=== PATIENT | male | born 1945 | race Caucasian/White ===

== ENCOUNTER → 2017-10-26 09:08 | Outpatient (CLI) | payer MEDICARE, OTHER, SELFPAY ==
[2017-10-26 09:55] LABS: BUN 24 mg/dL (7-18); Creatinine, Serum 0.99 mg/dL (0.70-1.30); Glucose 184 mg/dL (74-106)
[2017-10-26 09:56] LABS: Anion Gap 8 (5-15); BUN/Creat Ratio 24.2 RATIO (10-20); Calcium,Total 8.3 mg/dL (8.5-10.1); Chloride 106 mmol/L (98-107); EST Glomerular Filtration Rate 79 mL/min (>60); Est Glom Filt Rate - Afr Amer 95 mL/min (>60); Potassium 3.9 mmol/L (3.5-5.1); Sodium Level 141 mmol/L (136-145)
[2017-10-26 10:01] LABS: AST(SGOT) 13 U/L (15-37); Alanine Aminotransfer ALT/SGPT 19 U/L (16-61); Albumin, Serum 3.4 g/dL (3.2-5.0); Alkaline Phosphatase 52 U/L (45-117); Bilirubin, Direct 0.19 mg/dL (0.00-0.30); Cholesterol 113 mg/dL (200); Globulin 3.5 g/dL (2.2-4.2); High Density Lipoprotein 35 mg/dL; Protein, Total 6.9 g/dL (6.4-8.2); Triglycerides 120 mg/dL; Very Low Density Lipoprotein 24 mg/dL (5-40)
[2017-10-26 10:07] LABS: Hemoglobin A1c 7.4 % (4.2-6.3)
== END ==
PROVIDERS: Family Provider Family Medicine; PCP Family Medicine; Visit Provider Internal Medicine Cardiovascular Disease
DX: E78.5 Hyperlipidemia, unspecified (principal); Z79.899 Other long term (current) drug therapy; I10 Essential (primary) hypertension; E11.9 Type 2 diabetes mellitus without complications
CPT/HCPCS: 36415; 80048; 80061; 80076; 83036

== ENCOUNTER → 2018-03-14 10:00 | Outpatient (CLI) | payer MEDICARE, OTHER, SELFPAY ==
[2018-03-14 12:37] LABS: Hemoglobin A1c 6.8 % (4.2-6.3)
[2018-03-14 12:38] LABS: Anion Gap 9 (5-15); BUN 21 mg/dL (7-18); BUN/Creat Ratio 21.5 RATIO (10-20); Calcium,Total 8.9 mg/dL (8.5-10.1); Chloride 108 mmol/L (98-107); Creatinine, Serum 0.98 mg/dL (0.70-1.30); EST Glomerular Filtration Rate 80 mL/min (>60); Est Glom Filt Rate - Afr Amer 97 mL/min (>60); Glucose 186 mg/dL (74-106); Sodium Level 143 mmol/L (136-145)
== END ==
PROVIDERS: Family Provider Family Medicine; PCP Family Medicine; Visit Provider Family Medicine
DX: I10 Essential (primary) hypertension (principal); E11.9 Type 2 diabetes mellitus without complications
CPT/HCPCS: 36415; 80048; 83036

== ENCOUNTER → 2018-04-07 13:56 | Outpatient (CLI) | payer MEDICARE, OTHER, SELFPAY ==
--- NOTE | 2018-04-07 14:02 | CDU_ITS ---
Reason For Study: ALTERED MENTAL STATUS Rt. Velocities/BP Lt. Velocities/BP Prox CCA 95.0/19.9 cm/sec. Prox CCA 132.0/25.9 cm/sec. Mid CCA 88.5/15.2 cm/sec. Mid CCA 98.5/22.3 cm/sec. Dist CCA 78.0/20.5 cm/sec. Dist CCA 92.6/24.0 cm/sec. Prox ICA 72.1/23.5 cm/sec. Prox ICA 87.4/21.7 cm/sec. Mid ICA 81.5/24.6 cm/sec. Mid ICA 94.4/28.1 cm/sec. Dist ICA 103.0/31.1 cm/sec. Dist ICA 92.0/27.6 cm/sec. Rt. ICA/CCA = 103.0/88.5=1.2. Lt. ICA/CCA = 92.0/98.5=0.93. Prox ECA 101.0/17.0 cm/sec. Prox ECA 98.5/16.4 cm/sec. Rt. Vert. 55.4/15.3 cm/sec. Lt. Vert. 48.3/12.2 cm/sec. Right Extracranial There is no significant atherosclerotic plaque noted in the right common carotid artery. There is intimal thickening but no significant atherosclerotic plaque noted in the right internal carotid artery. There is no significant atherosclerotic plaque noted in the right external carotid artery. Antegrade flow is noted in the right vertebral artery. There is heterogeneous, irregular atherosclerotic plaque noted in the right bulb. Left Extracranial There is no significant atherosclerotic plaque noted in the left common carotid artery. There is no significant atherosclerotic plaque noted in the left internal carotid artery. There is no significant atherosclerotic plaque noted in the left external carotid artery. Antegrade flow is noted in the left vertebral artery. There is heterogeneous, irregular atherosclerotic plaque noted in the left bulb. Procedure Carotid Duplex 21298. The exam was diagnostic. Exam performed in department. Interpretation Summary No significant atherosclerotic plaque or stenosis noted in the internal carotid arteries bilaterally. Flow within the vertebral arteries is antegrade bilaterally. A small amount of heterogeneous, irregular, atherosclerotic plaque is noted in the carotid bulbs bilaterally, which is not hemodynamically significant. Ordering Physician: Guanakito Cedeno Referring Physician: Guanakito Cedeno Performed By: Aubrie Boyd, NEISHA, RVT
== END ==
PROVIDERS: Family Provider Family Medicine; PCP Family Medicine; Visit Provider Family Medicine
DX: R42 Dizziness and giddiness (principal); R41.82 Altered mental status, unspecified
CPT/HCPCS: 93880

== ENCOUNTER 2018-05-12 21:23 | Emergency (ER) | payer MEDICARE, OTHER, SELFPAY ==
[2018-05-12 21:24] VITALS: BP 149/72; PULSE 77; RESP 14; TEMP 39.1; O2SAT 94; BMI 28.7
--- NOTE | 2018-05-12 21:57 | RAD_ITS ---
STUDY: X-RAY CHEST REASON FOR EXAM: Male, 72 years old. Fever and illness. TECHNIQUE: PA and lateral views of the chest. # of Images: 2 COMPARISON: 09/16/2015. FINDINGS: There again is a calcified granuloma in the right lung apex. No focal infiltrate is seen. There is no demonstrated pleural abnormality. Normal size heart. Normal mediastinum and yanely. Normal visualized pulmonary arteries. There is atherosclerotic tortuosity of the aortic arch and descending thoracic aorta. There are diffuse degenerative changes of the visualized thoracic spine. Normal visualized ribs, clavicles, and shoulders. There is no demonstrated abnormality of the visualized soft tissue structures of the upper abdomen. RAD/Chest PA and Lateral IMPRESSION: No active pulmonary disease. Electronically Signed: James Gill MD at 22:37 EDT Tel , Service support ,
[2018-05-12] MEDS: 0.9% Normal Saline 1,000 ML 150 ML IV (22:22)
[2018-05-12 22:24] VITALS: PULSE 76; RESP 20; O2SAT 92
[2018-05-12 22:25] LABS: Color, Urine Yellow (Yellow); Glucose, Dipstick Normal (Normal); Ketone-Dipstick Negative (Negative); Leukocyte Esterase-Dipstick 500 /ul (Negative); Nitrite-Dipstick Positive (Negative); Occult Blood-Urine 25 /ul (Negative); Protein-Dipstick 30 mg/dl (Negative); Urine Bilirubin Dipstick Negative (Negative); Urine Clarity Cloudy (Clear); Urine Urobilinogen 1 mg/dl (Normal)
--- NOTE | 2018-05-12 22:25 | ED.RN ---
dr zamora aware pt took tylenol at home at 8pm,order to not give tylenol here.
[2018-05-12 22:44] LABS: Bacteria 2+ /hpf (None Seen); Mucous, Urine 1+ /hpf (<or=2+); Red Blood Cells-Urine 0-5 SEEN /hpf (0-5); Squamous Epithelial Cells - UA 0-5 SEEN /hpf (0-5); White Blood Cells 25-50 SEEN /hpf (0-5)
[2018-05-12 22:49] LABS: Absolute Lymphocyte Count 0.67 X10^3/ul (0.83-4.51); Absolute Neutrophil Count 10.4 X10^3/uL (2.0-7.7); Basophil# 0.04 X10^3/uL; Basophil% 0.3 % (0-1); Eosinophil# 0.09 X10^3/uL; Eosinophils% 0.7 % (0-5); Hematocrit 36.4 % (40-54); Hemoglobin 12.2 g/dl (13.0-16.5); Lymphocyte # 0.67 X10^3/ul (4.0); Lymphocyte % 5.5 % (19-41); Mean Corp Hgb Conc 33.5 g/gl (32-36); Mean Corpuscular Hgb 30.7 pg (27.0-32.0); Mean Corpuscular Volume 91.5 fL (80-94); Mean Platelet Vol. 11.4 fl (6.2-12.0); Monocyte# 0.97 X10^3/uL; Monocyte% 7.9 % (0-10); Neutrophil # 10.41 X10^3/uL (2.7-7.7); Neutrophil % 85.2 % (47-70); Platelet Count 132 K/mm3 (150-450); RBC Distribution Width CV 13.7 % (11.6-14.6); RBC Distribution Width SD 45.6 fl (35.1-43.9); Red Blood Count 3.98 M/mm3 (4.6-6.2); White Blood Count 12.2 K/mm3 (4.4-11.0)
[2018-05-12 22:51] LABS: POSITIVE COUNT NO; POSITIVE DIFFERENTIAL NO; POSITIVE MORPHOLOGY NO
[2018-05-12 22:54] VITALS: TEMP 37.6
[2018-05-12 22:55] LABS: International Normalized Ratio 2.3; Prothrombin Time (Protime)PT. 25.6 SECONDS (11.7-14.9)
[2018-05-12 22:56] LABS: Partial Thromboplast Time 41.5 Seconds (24.1-36.2)
[2018-05-12 23:09] LABS: Lactic Acid 1.8 mmol/L (0.4-2.0)
[2018-05-12 23:21] VITALS: PULSE 75; RESP 16; O2SAT 99
[2018-05-12 23:28] LABS: ALB/GLOB Ratio 0.9 RATIO (0.9-2.4); AST(SGOT) 8 U/L (15-37); Alanine Aminotransfer ALT/SGPT 16 U/L (16-61); Albumin, Serum 3.3 g/dL (3.2-5.0); Alkaline Phosphatase 63 U/L (45-117); Anion Gap 8 (5-15); BUN 14 mg/dL (7-18); BUN/Creat Ratio 12.8 RATIO (10-20); Calcium,Total 8.3 mg/dL (8.5-10.1); Chloride 105 mmol/L (98-107); Creatinine, Serum 1.09 mg/dL (0.70-1.30); EST Glomerular Filtration Rate 70 mL/min (>60); Est Glom Filt Rate - Afr Amer 85 mL/min (>60); Estimated Creatinine Clearance 62.32 ml/min; Globulin 3.7 g/dL (2.2-4.2); Glucose 161 mg/dL (74-106); Potassium 3.5 mmol/L (3.5-5.1); Sodium Level 137 mmol/L (136-145)
[2018-05-13 00:03] VITALS: PULSE 74; RESP 20; O2SAT 94
--- NOTE | 2018-05-13 00:08 | ED.DCSUM_ITS ---
- ER Visit Summary Date of Service: 05/13/18 Chief Complaint: Dysuria and fever History of Present Illness: The patient is a [address] Guanakito Maharaj. He reports he had dysuria for the past 2 days. States that he has a fever that began tonight. He has had chills. Complains of a chronic cough that is unchanged. He has a dull headache that is 2 out of 10 severity. He initially thought that this was because he got his shingles vaccine 2 days ago. Physical Examination: Vitals: 102.4, 149/72, 77, 14, 94% room air which is not hypoxic. General: Well-nourished and well-developed. Head: Normocephalic atraumatic. Neck: Supple, no lymphadenopathy. No JVD. Nontender. Cardiovascular: Regular rate and rhythm. No murmurs. Respiratory: No respiratory distress. Clear to auscultation bilaterally. Abdominal: Soft, nontender, nondistended, normal bowel sounds. No guarding, rebound, or peritoneal signs. Back: No CVA tenderness. Extremities: Nontender, trace pedal edema bilaterally. Skin: Normal color, no rash. Neurologic: Alert and oriented ?3. Cranial nerves II through XII are intact. Normal strength and sensation. Psych: Normal affect. Test Results: CBC is marked for a white count of 12.2 with 85 segmented neutrophils and 6 lymphocytes. H&H is 12.2 and 36.4. Platelets are 132. Chem- 7 is marked for the glucose of 161 calcium 8.3. Lactic acid is 1.8. UA shows leukocytes, nitrites, 25-50 white blood cells, 2+ bacteria. Emergency Department Course and Treatment: Patient was given a liter of normal saline. He is given a dose of Rocephin IV. He is resting comfortably and feels well. Treatment Plan: Patient would like to go home. He will be discharged on Cipro. Instructed to follow-up with Dr. Guanakito Cedeno or Dr. Maharaj in 2 days to get the results of his urine culture to make sure that it is sensitive to Cipro. Return to the emergency department for any worsening symptoms. Disposition: To home in improved and stable condition. Impression: 1. Pyelonephritis. This note was generated with [employer] software. It may contain incorrect words, spelling, and punctuation that were not noted in review of the chart prior to signing ED Disposition - Plan for ED Patient: Disposition: Home or Assisted Living Chief Complaint: General Illness Instructions: ED UTI Cystitis Male Prescriptions: Ciprofloxacin [Cipro] 500 mg PO BID #14 tablet Referrals: Guanakito Cedeno MD [Primary Care Provider] - 2 Days
[2018-05-13 00:21] VITALS: BP 119/48; PULSE 73; RESP 18; O2SAT 94
== END 2018-05-13 00:21 | disposition home or self-care (01) ==
LOC: ED 21:47
PROVIDERS: Emergency Provider Emergency Medicine; Family Provider Family Medicine; PCP Family Medicine
DX: N12 Tubulo-interstitial nephritis, not specified as acute or chronic (principal); R05 Cough; R51 Headache; R60.0 Localized edema; E11.9 Type 2 diabetes mellitus without complications; I10 Essential (primary) hypertension; Z90.49 Acquired absence of other specified parts of digestive tract; Z79.84 Long term (current) use of oral hypoglycemic drugs; Z79.01 Long term (current) use of anticoagulants; Z79.899 Other long term (current) drug therapy
CPT/HCPCS: 71046; 80053; 81001; 83605; 85025; 85610; 85730; 87040; 87086; 87088; 87186; 96361; 96365; 99285; J7030; J7050; A4216; J0696

== ENCOUNTER → 2018-05-20 08:54 | Outpatient (CLI) | payer MEDICARE, OTHER, SELFPAY ==
[2018-05-20 10:07] LABS: AST(SGOT) 11 U/L (15-37); Alanine Aminotransfer ALT/SGPT 20 U/L (16-61); Albumin, Serum 3.1 g/dL (3.2-5.0); Alkaline Phosphatase 61 U/L (45-117); Bilirubin, Direct 0.08 mg/dL (0.00-0.30); Cholesterol 86 mg/dL (200); Globulin 3.9 g/dL (2.2-4.2); High Density Lipoprotein 28 mg/dL; Triglycerides 125 mg/dL; Very Low Density Lipoprotein 25 mg/dL (5-40)
== END ==
PROVIDERS: Family Provider Family Medicine; PCP Family Medicine; Referring Provider Nurse Practitioner Family; Visit Provider Nurse Practitioner Family
DX: E78.5 Hyperlipidemia, unspecified (principal); Z79.899 Other long term (current) drug therapy
CPT/HCPCS: 36415; 80061; 80076

== ENCOUNTER → 2018-10-12 08:51 | Outpatient (CLI) | payer MEDICARE, OTHER, SELFPAY ==
[2018-10-12 10:04] LABS: Cholesterol 94 mg/dL (200); High Density Lipoprotein 30 mg/dL; Triglycerides 137 mg/dL; Very Low Density Lipoprotein 27 mg/dL (5-40)
[2018-10-12 10:12] LABS: AST(SGOT) 13 U/L (15-37); Alanine Aminotransfer ALT/SGPT 20 U/L (16-61); Albumin, Serum 3.6 g/dL (3.2-5.0); Alkaline Phosphatase 62 U/L (45-117); Bilirubin, Direct 0.14 mg/dL (0.00-0.30); Globulin 3.5 g/dL (2.2-4.2); Protein, Total 7.1 g/dL (6.4-8.2)
[2018-10-12 11:30] LABS: Hemoglobin A1c 8.7 % (4.2-6.3)
== END ==
PROVIDERS: Family Provider Family Medicine; PCP Family Medicine; Referring Provider Nurse Practitioner Family; Visit Provider Nurse Practitioner Family
DX: I10 Essential (primary) hypertension (principal); E11.9 Type 2 diabetes mellitus without complications; E78.5 Hyperlipidemia, unspecified; Z12.5 Encounter for screening for malignant neoplasm of prostate
CPT/HCPCS: 36415; 80061; 80076; 83036; 84153; G0103

== ENCOUNTER 2019-03-12 00:10 | Emergency (ER) | payer MEDICARE, OTHER, SELFPAY ==
[2018-10-17 15:56] VITALS: BMI 28.2
[2019-03-12 00:11] VITALS: BP 153/88; PULSE 86; RESP 17; TEMP 36.6; O2SAT 99; BMI 26.7
--- NOTE | 2019-03-12 01:08 | CT_ITS ---
STUDY: CT ABDOMEN AND PELVIS WITHOUT CONTRAST REASON FOR EXAM: Male, 73 years old. Epigastric abdominal pain RADIATION DOSAGE (If Supplied By Facility): CTDIvol = ( 9.99 ) mGy, DLP = ( 536.38 ) mGycm TECHNIQUE: Transaxial images were obtained from the dome of the diaphragm to the symphysis pubis without oral contrast, and without intravenous contrast. Sagittal and coronal images were reconstructed. Individualized dose optimization techniques were used for this CT. COMPARISON: CT abdomen and pelvis from 01/21/2016 FINDINGS: The visualized lung bases are unremarkable. There is scattered right lung base calcified granulomas. The visualized portions of the heart are within normal limits. Normal liver. Interval resolution of fluid collection within the liver. The patient is status post cholecystectomy. Normal spleen. Normal pancreas. Normal bilateral adrenal glands. Normal right kidney. This is a stable left renal inferior pole cyst measuring 1.1 cm in diameter. Normal visualized stomach. Normal small intestine. There is scattered colonic diverticulosis without evidence for diverticulitis. The appendix is visualized and appears normal. Normal abdominal aorta. Normal inferior vena cava. Normal retroperitoneum. Normal urinary bladder. Normal abdominal wall. There are diffuse degenerative changes of the visualized lumbar spine. CT/Abdomen/Pelvis without Cont IMPRESSION: Negative unenhanced CT of the abdomen and pelvis for acute intra-abdominal abnormality. Status post cholecystectomy with interval resolution of intrahepatic fluid collection. Electronically Signed: David Rosa, at 1:55 EDT Tel , Service support ,
--- NOTE | 2019-03-12 01:08 | EKG12_ITS ---
Test Reason : CHEST BURNING Blood Pressure : / mmHG Vent. Rate : 084 BPM Atrial Rate : 084 BPM P-R Int : 194 ms QRS Dur : 098 ms QT Int : 420 ms P-R-T Axes : 056 027 060 degrees QTc Int : 496 ms Normal sinus rhythm Abnormal ECG Confirmed by ANTON EATON, RUBEN ([id number]), editorial clerk LO ARRINGTON ([id number]) on 03/14/2019 1:24:14 PM Referred By: DEANDRE Confirmed By:RUBEN WALTON MD
--- NOTE | 2019-03-12 01:13 | ED.VIS.GI ---
History of Present Illness Chief Complaint: General Illness - Abdominal Pain/Flank Pain Onset: Hours - 6.5-7 Context: Gradual Onset Timing: Continuous Quality: Burning Location: Epigastric Current Severity: Gone Maximum Severity: Severe Worsened by: Nothing - Despite exertion, taking Gaviscon, Tums Relieved by: Antacids - partially, but pain would return/worsen quickly - Nausea/Vomiting/Emesis GI Symptom: Negative for: Nausea, Vomiting - Diarrhea/Melena/Hematochezia GI Symptom: Negative for: Diarrhea, Melena, Hematochezia Associated Symptoms: - - Sweats. Negative for: Dysuria, Hematuria Narrative: Patient states he has had this not infrequently since he had his gallbladder taken out, which was complicated by needing 3 different ERCP procedures. He states usually taking Gaviscon takes care of this discomfort and it is no longer an issue but tonight that did not help. He proceeded to take Tums and other medications none of which helped. The pain got worse, so he presents to the ER but now states the pain is gone. He states he felt a little straight through into his back. Denies any nausea or throwing up. I did make him sweat because it hurt really bad. Denies any discomfort up into his chest or trouble breathing. No nausea or vomiting, he states he did feel an irregular heartbeat like he went into A. fib, and states that is not unusual for him and he usually feels it. No recent hospitalization. States he had a heart catheter on 10 years ago that showed some very mild coronary disease but never needed a stent and has never failed a stress test. The last one was multiple years ago. - Past Medical History (1) Atherosclerotic heart disease of [place] coronary artery without angina pectoris Status: Chronic Comment: [facility] 08/14/08: CX 20-30% prox-mid stenosis, LAD 20-30% and 10-20% anterior trunk stenosis, OM1 20-30% tapering ostial stenosis, RCA 20% prox stenosis (2) Diabetes mellitus, type II Status: Chronic (3) Essential hypertension Status: Chronic (4) Gastroesophageal reflux disease Status: Chronic (5) Paroxysmal atrial fibrillation Status: Chronic (6) Pure hypercholesterolemia Status: Chronic Past Medical History - Allergies and Home Meds Allergies/Adverse Reactions: Allergies scopolamine Adverse Reaction (Verified 03/12/19 00:15) Other HALLUCINATIONS SOME TYPE OF IV DYE FOR ULTRA BRYCE Adverse Reaction (Uncoded 03/12/19 00:15) Other Primary Care Physician: Guanakito Cedeno MD [Primary Care Provider] - 3-5 Days Surgical History: cholecystectomy Smoking Status: Never smoker Drugs: None - Family History Maternal Family History: Family History (Last Reviewed 10/17/18 @ 16:00 by Brittani Peoples) Father CAD (coronary artery disease) Mother Alzheimers disease Sister Breast cancer Family History: Reports: No pertinent history Paternal Family History: Family History (Last Reviewed 10/17/18 @ 16:00 by Brittani Peoples) Father CAD (coronary artery disease) Mother Alzheimers disease Sister Breast cancer Family History: Reports: Cancer - colon cancer, Heart Disease Review of Systems General: Reports: Sweats. Denies: Chills, Fever Eyes: Denies: Visual changes - bilaterally, Diplopia ENT: Denies: Rhinorrhea, Sore throat Cardiovascular: Denies: Chest pain, Palpitations Respiratory: Denies: Dyspnea, Cough, Dyspnea on exertion Gastrointestinal: Reports: Abdominal pain. Denies: Nausea, Vomiting, Diarrhea, Melena, Hematochezia Genitourinary: Denies: Dysuria, Hematuria, Frequency Musculoskeletal: Reports: Back pain. Denies: Extremity Pain Skin: Denies: Rash, Wounds Neurological: Denies: Headache, Weakness, Numbness Physical Exam Vital Signs/Narrative: Vital Signs Temp Pulse Resp BP Pulse Ox 03/12/19 00:11 98 F 86 17 153/88 H 99 Inital Vital Signs reviewed: Yes General: Well nourished, Well developed, No Acute Distress Head: Normocephalic, Atraumatic Eyes: Perrl, EOMI ENT: Moist mucous membranes, No rhinorrhea Neck: Supple, Nontender Cardiovascular: Regular rate, Regular rhythm, No murmurs Respiratory: No distress, CTA bilaterally, Chest nontender Abdomen: Soft, Nondistended, Normal bowel sounds, Tender - Epigastrium only. Negative for: Guarding, Rebound tenderness, Pulsatile mass Back: Nontender, Normal Inspection. Negative for: CVA tenderness Extremities: Nontender, No edema. Negative for: Calf Tenderness Skin: Normal color, No rash, No Trauma Neurological: Alert, Oriented x3, Cranial nerves II-XII grossly intact, Normal Strength, Normal Sensation Psychological: Normal affect, Normal Mood Diagnostic/Tx/Re-eval Impressions Abdomen/Pelvis CT 03/12/19 01:08 IMPRESSION: Negative unenhanced CT of the abdomen and pelvis for acute intra-abdominal abnormality. Status post cholecystectomy with interval resolution of intrahepatic fluid collection. Electronically Signed: David Rosa, at 1:55 EDT Tel , Service support , 03/12/19 01:08 CT Abd [Abdomen/Pelvis without Cont] [CT] Stat Laboratory Results 03/12/19 03/12/19 01:17 01:17 WBC 7.0 RBC 3.94 L Hgb 12.6 L Hct 37.8 L MCV 95.9 H MCH 32.0 MCHC 33.3 RDW Std Deviation 47.9 H RDW Coeff of Dano 13.5 Plt Count 163 MPV 11.0 Immature Gran % (Auto) 0.700 Neut % (Auto) 71.3 H Lymph % (Auto) 15.8 L Lee % (Auto) 10.5 H Eos % (Auto) 1.0 Baso % (Auto) 0.7 Absolute Neuts (auto) 5.0 Absolute Lymphs (auto) 1.11 Nucleated RBC % 0 Sodium 145 Potassium 4.0 Chloride 111 H Carbon Dioxide 27.0 Anion Gap 7 BUN 26 H Creatinine 1.17 Estim Creat Clear Calc 59.00 Est GFR (MDRD) Af Amer 78 Est GFR (MDRD) Non-Af 65 BUN/Creatinine Ratio 22.2 H Glucose 126 H Calcium 8.9 Total Bilirubin 0.50 AST 62 H ALT 45 Alkaline Phosphatase 59 Troponin I < 0.015 Total Protein 7.1 Albumin 3.5 Globulin 3.6 Albumin/Globulin Ratio 1.0 Lipase 303 - Rhythm Strip Rhythm Strip: Sinus Rhythm Rate: 85 Ectopy: PVC(s) - EKG Initial EKG Interpretation: Sinus Rhythm, No Acute Injury Pattern, - - Prolonged QTC. Normal axis. No ectopy on EKG. Prior: Unchanged Follow-up EKG Interpretation: Sinus Rhythm, No Acute Injury Pattern Prior: Unchanged - Medical Decision Making Patient started having symptoms return, somewhat colicky in nature. He was given a nitroglycerin but it did not help. I repeated his EKG was unchanged. His work-up is unremarkable, no sign of aortic aneurysm, pancreatitis, acute coronary syndrome, perforated peptic ulcer, or basilar pneumonia. I gave him a GI cocktail, it gradually seemed to help. He is amenable to close outpatient follow-up and trying Carafate in the meantime. He is already on a PPI. He is a patient of Dr. Terrazas's, so I think it might be reasonable to follow up with him for evaluation for EGD. ED Disposition - Plan for ED Patient: Disposition: Home or Assisted Living Diagnosis: Epigastric pain Instructions: EPIGASTRIC PAIN (Uncertain cause) Prescriptions: Sucralfate [Carafate] 1 gm PO 4X/DAY #28 tab Prescription Printed Referrals: Guanakito Cedeno MD [Primary Care Provider] - 3-5 Days Keo Terrazas MD [NON-STAFF] - 1 Week if not improving
[2019-03-12 01:25] LABS: Absolute Lymphocyte Count 1.11 X10^3/uL (0.83-4.51); Basophil# 0.05 X10^3/uL; Basophil% 0.7 % (0-1); Eosinophil# 0.07 X10^3/uL; Hematocrit 37.8 % (40-54); Hemoglobin 12.6 g/dL (13.0-16.5); Lymphocyte # 1.11 X10^3/ul (4.0); Lymphocyte % 15.8 % (19-41); Mean Corp Hgb Conc 33.3 g/dL (32-36); Mean Corpuscular Volume 95.9 fL (80-94); Monocyte# 0.74 X10^3/uL; Monocyte% 10.5 % (0-10); NRBC Flagged by Analyzer 0 % (0-5); Neutrophil # 5.02 X10^3/uL (2.7-7.7); Neutrophil % 71.3 % (47-70); Platelet Count 163 K/mm3 (150-450); RBC Distribution Width CV 13.5 % (11.6-14.6); RBC Distribution Width SD 47.9 fl (35.1-43.9); Red Blood Count 3.94 M/mm3 (4.6-6.2)
[2019-03-12 01:43] LABS: AST(SGOT) 62 U/L (15-37); Alanine Aminotransfer ALT/SGPT 45 U/L (16-61); Albumin, Serum 3.5 g/dL (3.2-5.0); Alkaline Phosphatase 59 U/L (45-117); Anion Gap 7 (5-15); BUN 26 mg/dL (7-18); BUN/Creat Ratio 22.2 RATIO (10-20); Calcium,Total 8.9 mg/dL (8.5-10.1); Chloride 111 mmol/L (98-107); Creatinine, Serum 1.17 mg/dL (0.70-1.30); EST Glomerular Filtration Rate 65 mL/min (>60); Est Glom Filt Rate - Afr Amer 78 mL/min (>60); Globulin 3.6 g/dL (2.2-4.2); Glucose 126 mg/dL (74-106); Lipase 303 U/L (73-393); Protein, Total 7.1 g/dL (6.4-8.2); Sodium Level 145 mmol/L (136-145)
--- NOTE | 2019-03-12 02:40 | EKG12_ITS ---
Test Reason : CP Blood Pressure : / mmHG Vent. Rate : 084 BPM Atrial Rate : 084 BPM P-R Int : 194 ms QRS Dur : 098 ms QT Int : 410 ms P-R-T Axes : 055 029 062 degrees QTc Int : 484 ms Normal sinus rhythm Prolonged QT Abnormal ECG Confirmed by ANTON EATON, RUBEN ([id number]), senior editor LO ARRINGTON ([id number]) on 03/14/2019 1:25:14 PM Referred By: DEANDRE Confirmed By:RUBEN WALTON MD
[2019-03-12 02:42] VITALS: BP 173/84; PULSE 87; RESP 18; O2SAT 98
[2019-03-12] MEDS: Nitroglycerin SL (ED/IMG/CATH) 0.4 MG TABLET SUBLINGUAL (02:43)
[2019-03-12] MEDS: Mag Hydrox/Al Hydrox/Simeth 30 ML UDC PO (03:20)
[2019-03-12 04:22] VITALS: BP 151/70; PULSE 85; RESP 20; O2SAT 97
[2019-03-12] MEDS: Sucralfate 1 GM Tablet PO (04:35)
== END 2019-03-12 04:38 | disposition home or self-care (01) ==
PROVIDERS: Emergency Provider Emergency Medicine; Family Provider Family Medicine; PCP Family Medicine
DX: R10.13 Epigastric pain (principal); I49.3 Ventricular premature depolarization; I25.10 Atherosclerotic heart disease of native coronary artery without angina pectoris; E11.9 Type 2 diabetes mellitus without complications; I10 Essential (primary) hypertension; K21.9 Gastro-esophageal reflux disease without esophagitis; I48.0 Paroxysmal atrial fibrillation; E78.00 Pure hypercholesterolemia, unspecified; Z90.49 Acquired absence of other specified parts of digestive tract; Z79.84 Long term (current) use of oral hypoglycemic drugs; Z79.899 Other long term (current) drug therapy
CPT/HCPCS: 74176; 80053; 83690; 84484; 85025; 93005; 99285; A4216

== ENCOUNTER → 2019-04-17 08:54 | Outpatient (CLI) | payer MEDICARE, OTHER, SELFPAY ==
[2019-04-17 10:11] LABS: Anion Gap 4 (5-15); BUN 21 mg/dL (7-18); BUN/Creat Ratio 20.2 RATIO (10-20); Calcium,Total 8.6 mg/dL (8.5-10.1); Chloride 109 mmol/L (98-107); Creatinine, Serum 1.04 mg/dL (0.70-1.30); EST Glomerular Filtration Rate 74 mL/min (>60); Est Glom Filt Rate - Afr Amer 90 mL/min (>60); Glucose 157 mg/dL (74-106); Sodium Level 142 mmol/L (136-145)
[2019-04-17 10:17] LABS: Cholesterol 84 mg/dL (200); High Density Lipoprotein 36 mg/dL; Triglycerides 68 mg/dL; Very Low Density Lipoprotein 14 mg/dL (5-40)
[2019-04-17 10:20] LABS: Hemoglobin A1c 7.1 % (4.2-6.3)
[2019-04-17 11:59] LABS: AST(SGOT) 8 U/L (15-37); Alanine Aminotransfer ALT/SGPT 16 U/L (16-61); Albumin, Serum 3.4 g/dL (3.2-5.0); Alkaline Phosphatase 50 U/L (45-117); Bilirubin, Direct 0.14 mg/dL (0.00-0.30); Globulin 3.3 g/dL (2.2-4.2); Protein, Total 6.7 g/dL (6.4-8.2)
== END ==
PROVIDERS: Family Provider Family Medicine; PCP Family Medicine; Referring Provider Nurse Practitioner Family; Visit Provider Nurse Practitioner Family
DX: I10 Essential (primary) hypertension (principal); E11.9 Type 2 diabetes mellitus without complications; E78.00 Pure hypercholesterolemia, unspecified; I25.10 Atherosclerotic heart disease of native coronary artery without angina pectoris
CPT/HCPCS: 36415; 80048; 80061; 80076; 83036

== ENCOUNTER → 2019-04-25 06:25 | Outpatient (CLI) | payer MEDICARE, OTHER, SELFPAY ==
[2019-04-20 10:23] VITALS: BMI 26.1
--- NOTE | 2019-04-25 11:43 | STRESSREP_ITS ---
Stress Test Report Date: 04-25-19 Procedure: Pharmacologic stress nuclear imaging study Indications: Palpitations; atrial fibrillation Consent: Per the patient Procedure: The patient underwent pharmacologic (Regadenoson) evaluation with a peak heart rate of 129 beats per minute (88 %predicted maximal heart rate) and a peak blood pressure of 130/72 mmHg. The baseline ECG demonstrated atrial fibrillation; nonspecific T wave abnormality. The peak pharmacologic ECG demonstrated no obvious ECG changes. There was an isolated PVC during infusion and a rare PVC during recovery. There was no complaint of chest discomfort during pharmacologic infusion or recovery. The examination was discontinued secondary to completion of protocol. Impression: 1. Pharmacologic (Regadenoson) evaluation 2. Peak pharmacologic ECG with no obvious ECG changes. 3. There was an isolated PVC during infusion and a rare PVC during recovery. 4. Nuclear images pending Myocardial perfusion imaging study: Technique: The patient was injected with 11.0 millicuries of technetium 99m Cardiolite and subsequently rest SPECT Cardiolite nuclear imaging was obtained in the horizontal long, vertical long, and short axis views. The patient underwent pharmacologic (Regadenoson) evaluation with a peak heart rate of 129 beats per minute (88 % percent predicted maximal heart rate) and a peak blood pressure of 130/72 mmHg. The patient was injected with 34 millicuries of technetium 99m Cardiolite and subsequently stress SPECT Cardiolite nuclear imaging was obtained in the horizontal long, vertical long, and short axis views. A gated Cardiolite study at peak stress was obtained. Interpretation: Rest and stress SPECT Cardiolite nuclear imaging status post realignment, normalization, and attenuation correction demonstrate the appearance of extracardiac/gastrointestinal tracer uptake near the inferior segments as well as a small area diminished tracer uptake near the apical segments without significant change between rest and stress. There is end systolic thickening and brightening. The gated Cardiolite study demonstrates myocardial thickening and inward wall motion. The reported LVEF is 55 %. Impression: 1. Rest and stress SPECT current nuclear imaging demonstrate myocardial perfusion changes compatible defects a gastrointestinal tracer uptake as well as physiologic apical thinning with no myocardial perfusion changes considered diagnostic for associated stress-induced myocardial ischemia. 2. The gated Cardiolite study reports an LVEF of 55 %. This note was generated with [employer] software. It may contain incorrect words, spelling, and punctuation that were not noted in checking the note before signing.
== END ==
PROVIDERS: Family Provider Family Medicine; PCP Family Medicine; Referring Provider Physician Assistant Medical; Visit Provider Physician Assistant Medical
DX: I48.0 Paroxysmal atrial fibrillation (principal); E78.00 Pure hypercholesterolemia, unspecified; I10 Essential (primary) hypertension; I25.10 Atherosclerotic heart disease of native coronary artery without angina pectoris
CPT/HCPCS: 78452; 93017; 93225; 93226; A9500; A4216; J2785

== ENCOUNTER 2019-05-16 07:53 | Day surgery (SDC) | payer MEDICARE, OTHER, SELFPAY ==
[2019-04-20 10:23] VITALS: BMI 26.1
[2019-05-10 09:43] VITALS: BMI 26.1
--- NOTE | 2019-05-10 09:55 | RAD_ITS ---
STUDY: X-RAY CHEST REASON FOR EXAM: Male, 73 years old. Shortness of breath and cough TECHNIQUE: PA and lateral views of the chest. COMPARISON: 05/12/2018 FINDINGS: The lungs are clear and expanded. There is no demonstrated pleural abnormality. Normal size heart. Normal mediastinum and yanely. Normal visualized pulmonary arteries. Normal visualized aortic arch and descending thoracic aorta. Normal visualized thoracic spine. Normal visualized ribs, clavicles, and shoulders. There is no demonstrated abnormality of the visualized soft tissue structures of the upper abdomen. RAD/Chest PA and Lateral IMPRESSION: Normal x-ray examination of the chest. Electronically Signed: Garrett Eldridge MD at 10:29 EDT , Service support ,
[2019-05-10 10:38] LABS: Hematocrit 40.5 % (40-54); Mean Corp Hgb Conc 32.1 g/dL (32-36); Mean Corpuscular Hgb 30.3 pg (27.0-32.0); Mean Corpuscular Volume 94.4 fL (80-94); Mean Platelet Vol. 11.3 fl (6.2-12.0); Platelet Count 162 K/mm3 (150-450); RBC Distribution Width CV 13.4 % (11.6-14.6); RBC Distribution Width SD 45.9 fl (35.1-43.9); Red Blood Count 4.29 M/mm3 (4.6-6.2); White Blood Count 7.5 K/mm3 (4.4-11.0)
[2019-05-10 10:45] LABS: International Normalized Ratio 1.3; Partial Thromboplast Time 35.4 Seconds (24.1-36.2); Prothrombin Time (Protime)PT. 15.6 SECONDS (11.7-14.9)
[2019-05-10 11:12] LABS: Anion Gap 5 (5-15); BUN 14 mg/dL (7-18); BUN/Creat Ratio 14.1 RATIO (10-20); Calcium,Total 8.8 mg/dL (8.5-10.1); Chloride 108 mmol/L (98-107); EST Glomerular Filtration Rate 78 mL/min (>60); Est Glom Filt Rate - Afr Amer 94 mL/min (>60); Glucose 197 mg/dL (74-106); Potassium 4.2 mmol/L (3.5-5.1); Sodium Level 141 mmol/L (136-145)
[2019-05-16 08:15] VITALS: BMI 25.1
--- NOTE | 2019-05-16 09:07 | HP.PCM_ITS ---
Problem List (1) Wide-complex tachycardia Status: Acute (2) Paroxysmal atrial fibrillation Status: Chronic (3) CAD in [place] artery Status: Acute (4) Pure hypercholesterolemia Status: Chronic (5) Essential hypertension Status: Chronic History and Physical Date of Admission: 05/16/19 [facility] [address] [place] [address] OFFICE VISIT Date of Service: 04/20/19 MR#: [id number] Acct: [id number] Name: MALI MARTIN Rep #: [id number] : [id number] Provider: Brittani Keenan Age/Sex: 73/M Location: [facility] Status: Signed HPI HPI History of Present Illness Details: MALI MARTIN, is a 73 M who presents to the office today for a cardiovascular outpatient follow-up. He has a history of paroxysmal atrial fibrillation, coronary artery disease, hypertension, and hyperlipidemia. Pt sts that he started to notice an increase in palpitations over the last 3-6 months. He notes that this occur daily but not all day. He notes that he his HR ranges from 60-80 in short periods of time. He feels that these occur more at rest than with activity. He does not have any chest pain. He does not have any worsening SOB. He does not have any near syncope/syncope. He does occasionally have LLE. He does not think his metoprolol is working. Intake Vital Signs 04/20/19 Height 5 ft 11 in 04/20/19 Weight: 187 lb 8 oz 04/20/19 Body Mass Index (BMI) 26.1 04/20/19 Blood Pressure 130/64 H 04/20/19 Blood Pressure Location Rt brachial 04/20/19 Respiratory Rate 16 04/20/19 Pulse Rate 72 04/20/19 Pulse Source Palpation 04/20/19 Body Mass Index (BMI) 26.7 Intake Visit Reasons: 6 m fu Is patient in pain?: No Allergies scopolamine Adverse Reaction (Verified 04/20/19 10:27) Other SOME TYPE OF IV DYE FOR ULTRA BRYCE Adverse Reaction (Uncoded 04/20/19 10:27) Other Medications Glimepiride [Amaryl] 4 mg PO DAILY 01/21/16 [History Confirmed 04/20/19] Omeprazole [Prilosec] 20 mg PO BID 01/21/16 [History Confirmed 04/20/19] Tamsulosin HCl [Flomax] 0.4 mg PO DAILY 01/21/16 [History Confirmed 04/20/19] sitagliptin 100 mg tablet 100 mg PO QDAY 10/26/17 [History Confirmed 04/20/19] flecainide 150 mg tablet 150 mg PO BID #180 tab 07/27/18 [Rx Confirmed 04/20/19] pravastatin 20 mg tablet 20 mg PO DAILY #90 tab 07/27/18 [Rx Confirmed 04/20/19] rivaroxaban 20 mg tablet 20 mg PO DAILY #90 tab 08/02/18 [Rx Confirmed 04/20/19] metformin 500 mg tablet 500 mg PO TID tab 10/17/18 [History Confirmed 04/20/19] omega-3 fatty acids 1,000 mg capsule 1,000 mg PO DAILY 10/17/18 [History Confirmed 04/20/19] metoprolol tartrate 50 mg tablet 50 mg PO BID 10/18/18 [History Confirmed 04/20/19] Sucralfate [Carafate] 1 gm PO 4X/DAY #28 tab 03/12/19 [Rx Confirmed 04/20/19] amlodipine 10 mg tablet 5 mg PO QDAY tab 04/20/19 [History] losartan 100 mg tablet 50 mg PO BID tab 04/20/19 [History] Nurse's Note: Voices metoprolol is not working as well as the nadolol, but insurance won't cover nadolol anymore. [facility] Medical History Pure hypercholesterolemia (Chronic) Essential hypertension (Chronic) Atherosclerotic heart disease of [place] coronary artery without angina pectoris (Chronic) Paroxysmal atrial fibrillation (Chronic) Diabetes mellitus, type II (Chronic) Body mass index (bmi) 29.0-29.9, adult (Acute) Chest pain (Acute) CAD (coronary artery disease) (Inactive) Hyperlipidemia (Inactive) Hypertension (Inactive) Surgical History History of ERCP (Resolved) Hx laparoscopic cholecystectomy (Resolved) Family History Father CAD (coronary artery disease) Mother Alzheimers disease Sister Breast cancer Social History (Updated 04/20/19 @ 11:10 by HAN Bean) Smoking Status: Never smoker alcohol intake: never substance use type: does not use diet: diabetic caffeine: No what type of physical activity do you participate in: none seatbelt use: always do you feel safe at home: Yes ROS Const Const: Negative for fatigue, weakness, fever(s) or headache(s) Eyes Eyes: Negative for blind spots, loss of peripheral vision or transient loss of vision ENT ENT: Negative for headache(s), dizziness, tinnitus or Nosebleed/epistaxis Cardio Chest Pain: No Palpitations: Yes Edema: None Muscle aches with walking: None Resp Respiratory: Negative for SOB with activity, SOB at rest, SOB orthopnea\SOB lying down or Cough GI GI: Negative nausea, vomiting, heartburn or vomiting blood/hematemesis : Negative for hematuria Musc Musc: Negative for muscle aches/ myalgia Neuro Neuro: Negative for dizziness, lightheadedness, near syncope, syncope, orthostatic symptoms, headache(s) or weakness Kwaku Hematologic/Lymphatic: Negative for easy bleeding Endo Endo: Negative for fatigue Cardiology Exam Const Appearance: cooperative, no acute distress and well developed Orientation: alert, awake and oriented x3 Head Head: normocephalic and atraumatic Mouth: moist mucous membranes Eyes General: appearance normal, both eyes and all related structures Conjunctivae: conjunctivae normal Pupils: PERRL EOM: EOM intact bilaterally Neck Neck: normal visual inspection, no lymphadenopathy and no JVD Carotids: Negative bruit Neck Mass: Negative Neck mass Chest Chest inspection: normal inspection of the chest and symmetric chest movement Auscultation: Bilateral: Clear to Auscultation Cardio Palpation: normal PMI Rate: regular rate Rhythm: regular rhythm and ectopic beats Heart sounds: S1 normal and S2 normal; negative rub, gallop or murmur GI GI: normal to inspection, soft, no hepatosplenomegaly and bowel sounds present; negative tender Neuro General: alert, awake, oriented x3, CN's II-XI intact bilaterally and moves all extremities Extremities Pulses: Normal: Right Posterior Tibial Pulse, Left Posterior Tibial Pulse, Right Radial Pulse, Left Radial Pulse Lower Extremity Edema: None: Bilateral Psych Psychological: normal affect Assessment & Plan 1. Atherosclerosis of [place] coronary artery of [place] heart without angina pectoris I25.10 [facility] 08/14/08: CX 20-30% prox-mid stenosis, LAD 20-30% and 10-20% anterior trunk stenosis, OM1 20-30% tapering ostial stenosis, RCA 20% prox stenosis Plan Patient does not have any symptoms of angina but with his worsening palpitations would like to obtain a stress test to make sure that he does not have any underlying ischemia as he is on flecainide for his atrial fibrillation. Orders Orders: Cardiac Holter Monitor, Set-Up Today Cardiac Holter Monitor/Day Today Nuclear Stress Test - Treadmil Today 2. Essential hypertension I10 Plan Blood pressure is well controlled on current medications, we do not recommend any changes at this time. Orders Orders: Cardiac Holter Monitor, Set-Up Today Cardiac Holter Monitor/Day Today Nuclear Stress Test - Treadmil Today 3. Paroxysmal atrial fibrillation I48.0 Plan Patient is concerned about increase in palpitations. He does have underlying atrial fibrillation. He questions if his medication is working. He is currently on metoprolol and flecainide. He is also on a factor X a inhibitor. Would like to obtain a 24-hour Holter monitor to further assess his arrhythmias. Recent labs were obtained. Orders Orders: Cardiac Holter Monitor, Set-Up Today Cardiac Holter Monitor/Day Today Nuclear Stress Test - Treadmil Today 4. Pure hypercholesterolemia E78.00 Plan Adequately controlled on low intensity statin. Will not make any adjustments per Orders Orders: Cardiac Holter Monitor, Set-Up Today Cardiac Holter Monitor/Day Today Nuclear Stress Test - Treadmil Today Plan Detail Additional Comments Thank you for allowing us to participate in patient's plan of care, if you have any questions please do not hesitate to call. This note was generated using a voice recognition system and there may be incorrect words, spelling or punctuation errors that were not noted when reviewing the office note prior to saving. Follow Up 6 Weeks (MMM) Coding Level of Care Code Off vis,est,level 4 Diagnoses Atherosclerosis of [place] coronary artery of [place] heart without angina pectoris I25.10 ??[place] vs. transplanted heart: [place] heart Essential hypertension I10 Paroxysmal atrial fibrillation I48.0 Pure hypercholesterolemia E78.00 Coding Level of Care Code Off vis,est,level 4 Diagnoses Atherosclerosis of [place] coronary artery of [place] heart without angina pectoris I25.10 ??[place] vs. transplanted heart: [place] heart Essential hypertension I10 Paroxysmal atrial fibrillation I48.0 Pure hypercholesterolemia E78.00 Supplemental Info Supplemental Information Transthoracic echocardiogram: 12/17/2014 Interpretation Summary Left ventricular systolic function is normal. The estimated ejection fraction is 60 %. Mild (1+) mitral valve insufficiency. Trivial tricuspid valve insufficiency. Trivial aortic valve insufficiency. Trivial pulmonic valve insufficiency. DATE OF SERVICE: 01/15/2015 EXERCISE TOLERANCE TEST: The patient exercised according to a regular Manpreet protocol for 9 minutes 45 seconds completing stage 3 and 45 seconds of stage 4 achieving a peak heart rate of 117 beats per minute (78% predicted maximum heart rate) and a peak blood pressure of 168/80 mmHg and a peak MET capacity of approximately 11 METS. The baseline ECG demonstrated sinus bradycardia. The peak exercise ECG demonstrated somatic/motion artifact with no obvious ECG changes. There were no cardiac dysrhythmias pretest, during exercise, or recovery. The functional capacity was considered good. The patient had no complaint of chest discomfort during exercise or recovery. The examination was discontinued secondary to leg discomfort. IMPRESSION: 1. Technically inadequate (percent predicted maximum heart rate less than 85% predicted maximum heart rate). 2. Peak exercise ECG with somatic/motion artifact with no obvious ECG changes at the heart rate achieved. 3. Pharmacologic (regadenoson) evaluation pending. The patient subsequently underwent pharmacologic (regadenoson) evaluation with a peak heart rate of 85 beats per minute (56% predicted maximum heart rate) and a peak blood pressure of 160/80 mmHg. The baseline ECG demonstrated normal sinus rhythm. The peak pharmacologic ECG demonstrated no obvious ECG changes. There were no cardiac dysrhythmias pretest, during pharmacologic infusion, or recovery. The patient had no complaint of chest discomfort during pharmacologic infusion or recovery. The examination was discontinued secondary to completion of protocol. IMPRESSION: 1. Pharmacologic (regadenoson) evaluation. 2. Peak pharmacologic ECG with no obvious ECG changes. 3. Nuclear images pending. MYOCARDIAL PERFUSION IMAGING STUDY: TECHNIQUE: The patient was injected with 14.2 mCi of Tc99m Cardiolite and subsequently rest SPECT Cardiolite nuclear imaging was obtained in the horizontal long, vertical long, and short axes views. The patient underwent an exercise tolerate test on a Manpreet protocol for 9 minutes and 45 seconds achieving a peak heart rate of 117 beats per minute (78% predicted maximum heart rate) and a peak blood pressure of 168/80 mmHg and a peak MET capacity of 11 METS. The patient then underwent pharmacologic (regadenoson) evaluation with a peak heart rate of 85 beats per minute (56% predicted maximum heart rate) and a peak blood pressure of 160/80 mmHg. The patient was injected with 43.7 mCi of Tc99m Cardiolite and subsequently stress SPECT Cardiolite nuclear imaging was obtained in the horizontal long, vertical long, and short axes views. A gated Cardiolite study at peak stress was obtained. INTERPRETATION: Rest and stress SPECT Cardiolite nuclear imaging both demonstrate areas of extracardiac/gastrointestinal tracer uptake near the inferior segments. Both images demonstrate diminished tracer uptake in portions of the basal inferoseptal, basal inferior, and basal inferolateral segments. Both images demonstrate diminished to absence of tracer uptake in portions of the mid to distal inferior and inferoapical segments. These changes appear to be similar and/or somewhat more prominent at rest as opposed to stress. There is also notation of diminished tracer uptake in portions of the mid to distal anterior segments, which appeared to be more prominent at rest as opposed to stress. There are similar type changes on the resting and stress polar map images. There is notation of end systolic thickening and brightening. The gated Cardiolite study demonstrates myocardial thickening and inward wall motion. The reported LVEF was 55%. The aforementioned changes appear compatible with the effects of shifting soft tissue attenuation/artifact being somewhat more prominent at rest as opposed to stress although areas of previous myocardial injury/infarction involving portions of the inferior and inferoapical segments as well as the mid to distal anterior segments cannot necessarily be excluded. There are no myocardial perfusion changes considered diagnostic for stress induced myocardial ischemia. IMPRESSION: 1. Rest and stress SPECT Cardiolite nuclear imaging demonstrate myocardial perfusion changes appearing compatible with shifting soft tissue attenuation/artifact being somewhat more prominent at rest as opposed to stress although areas of previous myocardial injury/infarction involving portions of the mid to distal inferior and inferoapical segments as well as the mid to distal anterior segments cannot necessarily be excluded. 2. There are no myocardial perfusion changes considered diagnostic for stress induced myocardial ischemia. 3. The gated Cardiolite study reports an LVEF of 55%. Labs LDL Cholesterol 34 mg/dL (0-130) 04/17/19 HDL Cholesterol 36 mg/dL (40-) L 04/17/19 Triglycerides 68 mg/dL (-199) 04/17/19 VLDL Cholesterol 14 mg/dL (5-40) 04/17/19 Diagnostics Electrocardiogram 03/12/19 Chest X-Ray 05/12/18 04/20/19 1110 <Electronically signed by Brittani Rock> Date _ Brittani SHORT I have examined the patient the following changes are noted: The patient subsequently underwent further evaluation with an exercise tolerance test/imaging study. The results are as noted below. Stress Test Report Date: 04-25-19 Procedure: Pharmacologic stress nuclear imaging study Indications: Palpitations; atrial fibrillation Consent: Per the patient Procedure: The patient underwent pharmacologic (Regadenoson) evaluation with a peak heart rate of 129 beats per minute (88 %predicted maximal heart rate) and a peak blood pressure of 130/72 mmHg. The baseline ECG demonstrated atrial fibrillation; nonspecific T wave abnormality. The peak pharmacologic ECG demonstrated no obvious ECG changes. There was an isolated PVC during infusion and a rare PVC during recovery. There was no complaint of chest discomfort during pharmacologic infusion or recovery. The examination was discontinued secondary to completion of protocol. Impression: 1. Pharmacologic (Regadenoson) evaluation 2. Peak pharmacologic ECG with no obvious ECG changes. 3. There was an isolated PVC during infusion and a rare PVC during recovery. 4. Nuclear images pending Myocardial perfusion imaging study: Technique: The patient was injected with 11.0 millicuries of technetium 99m Cardiolite and subsequently rest SPECT Cardiolite nuclear imaging was obtained in the horizontal long, vertical long, and short axis views. The patient underwent pharmacologic (Regadenoson) evaluation with a peak heart rate of 129 beats per minute (88 % percent predicted maximal heart rate) and a peak blood pressure of 130/72 mmHg. The patient was injected with 34 millicuries of technetium 99m Cardiolite and subsequently stress SPECT Cardiolite nuclear imaging was obtained in the horizontal long, vertical long, and short axis views. A gated Cardiolite study at peak stress was obtained. Interpretation: Rest and stress SPECT Cardiolite nuclear imaging status post realignment, normalization, and attenuation correction demonstrate the appearance of extracardiac/gastrointestinal tracer uptake near the inferior segments as well as a small area diminished tracer uptake near the apical segments without significant change between rest and stress. There is end systolic thickening and brightening. The gated Cardiolite study demonstrates myocardial thickening and inward wall motion. The reported LVEF is 55 %. Impression: 1. Rest and stress SPECT current nuclear imaging demonstrate myocardial perfusion changes compatible defects a gastrointestinal tracer uptake as well as physiologic apical thinning with no myocardial perfusion changes considered diagnostic for associated stress-induced myocardial ischemia. 2. The gated Cardiolite study reports an LVEF of 55 %. The patient subsequently underwent further evaluation with a Holter monitor. The Holter monitor demonstrated findings of sinus rhythm, paroxysmal atrial fibrillation, and wide-complex tachycardia concerning for a differential diagnosis of aberrancy versus ventricular tachycardia. The patient's case was reviewed. Based upon the patient's concerns, previous cardiovascular diagnosis, cardiovascular medications including current antiarrhythmic therapy, and the concern of wide-complex tachycardia with a concern of ventricular tachycardia, it was felt appropriate for the patient to be considered for further definitive evaluation for the progression of CAD which may require adjustment of medications and/or further therapy. Would include diagnostic cardiac catheterization. The procedure and risks were discussed with the patient. The patient granted consent to proceed. The patient is scheduled for diagnostic cardiac catheterization the [facility] on 05-16-19. This note was generated using a voice recognition system and there may be incorrect words, spelling or punctuation that were not noted when reviewing the office note prior to saving.
--- NOTE | 2019-05-16 10:33 | CL.D_ITS ---
Patient Name: MALI MARTIN Study Date: 05/16/2019 Performing: Blake Blas MD Ht: 71 inches 180.34 cm : 1945 Wt: 179.99 lbs 81.64 kg Age: 73 Gender: male BSA: 2.02 PROCEDURE(S) PERFORMED [id number]/LV CLINICAL PROFILE AND INDICATIONS Indications: Cardiac Arrythmia Heart Failure: None Stress/Imaging Stress Test w/SPECT MPI: Yes Result: NegativeStress Test with SPECT MPI: Negative Angina Classification Anginal Classification w/in 2 Weeks: No symptoms CAD Presentations: No Sxs, no angina. CONCLUSIONS Elevated Left Ventricular End Diastolic Pressure Normal LV size, wall motion,and systolic function LVEF: by LV gram 60 % [place] Multivessel CAD RECOMMENDATIONS Risk factor modification Medical therapy DESCRIPTION OF PROCEDURE The patient arrived to the procedure lab. The risks and benefits of the procedure as well as a full d escription of our services here and current unavailability of surgical backup were fully explained to the patient and/or their significant other prior to the catheterization. The Timeout was completed, verifying the correct patient and procedure. The patient's procedural site was prepped and draped in the usual fashion. Local anesthetic was given subcutaneously to right radial region with Lidocaine 2% . Using a modified Seldinger technique, arterial access was obtained via the right radial artery, a 6 Fr sheath was inserted. Left Coronary Artery selective angiography was performed in multiple views u sing a 5 Fr. 4.0 [place] catheter. Right Coronary Artery selective angiography was then performed in mu ltiple views using a 5 Fr. JR 4 catheter. Left Ventriculography was performed in [place] projection using a 5 Fr. Pigtail catheter. LV to AO pullback pressures were then recorded.The arterial sheath was pulled and a TR Band was applied for hemostasis CORONARY ANGIOGRAPHY DOMINANCE: Co- Dominant LEFT HEART ASSESSMENT Left Ventricular Ejection Fraction: by LV Gram 60 % Normal LV wall motion Elevated Left Ventricular End Diastolic Pressure LVEDP: 20 mmHg LEFT MAIN: Mild luminal irregularities LEFT ANTERIOR DESCENDING ARTERY: PROX LAD: Mild calcification, Mild luminal irregularities, eccentric: 10 - 25 % Stenosis MID LAD: Mild luminal irregularities CIRCUMFLEX ARTERY: Mild luminal irregularities RIGHT CORONARY ARTERY: PROX RCA: Mild calcification, Mild luminal irregularities, eccentric: 10 - 25 % Stenosis MID RCA: Mild luminal irregularities AORTIC ROOT: Angiographically normal COMPLICATIONS No Complications PROCEDURE MEDICATIONS Fentanyl 50 mcg IV Versed 1 mg IV Oxygen: 2 L/min via nasal cannula Heparin diluted in 23cc Heparinized saline. Patient given 10cc IA of this solution. 05/16/2019 09:25 :56 Solu-medrol 125 mg IV 05/16/2019 09:23:11 Verapamil 2.5mg, Ntg 100mcgs, 2000 units of Heparin diluted in 23cc Heparinized saline. Patient give n 10cc IA of this solution. 05/16/2019 09:25:56 SUMMARY OF HEMODYNAMIC DATA Time AIR REST ECG 08:18:16 AO 123/65 (90) SA 09:36:38 LV 129/-4, 24 09:56:05 LV 130/-5, 20 09:56:11 LV 131/-3, 22 09:56:59 LVp 131/-4, 20 09:57:04 AOp 125/55 (85) 09:57:09 AO 124/55 (85) 09:57:10 Signed By Blake Blas MD On 05/16/2019 10:32:52 Blake Blas MD
== END 2019-05-16 12:10 | disposition home or self-care (01) ==
LOC: CLSP 07:54
PROVIDERS: Family Provider Family Medicine; PCP Family Medicine; Referring Provider Internal Medicine Cardiovascular Disease; Visit Provider Internal Medicine Cardiovascular Disease
DX: I25.10 Atherosclerotic heart disease of native coronary artery without angina pectoris (principal); I48.0 Paroxysmal atrial fibrillation; E78.00 Pure hypercholesterolemia, unspecified; I10 Essential (primary) hypertension; E11.9 Type 2 diabetes mellitus without complications; Z79.84 Long term (current) use of oral hypoglycemic drugs; Z79.01 Long term (current) use of anticoagulants; Z79.899 Other long term (current) drug therapy
CPT/HCPCS: 36415; 71046; 80048; 85027; 85610; 85730; 93458; 99152; 99153; J7040; Q9967; C1769; C1894

== ENCOUNTER 2019-05-17 22:05 | Emergency (ER) | payer MEDICARE, OTHER, SELFPAY ==
[2019-05-16 08:15] VITALS: BMI 25.1
[2019-05-17 22:06] VITALS: BP 146/86; PULSE 108; RESP 18; TEMP 36.8; O2SAT 99; BMI 26.3
[2019-05-17 22:33] VITALS: O2SAT 97
--- NOTE | 2019-05-17 22:33 | RAD_ITS ---
STUDY: X-RAY CHEST REASON FOR EXAM: Male, 73 years old. Palpitations TECHNIQUE: Single AP portable view of the chest. COMPARISON: May 10, 2019 FINDINGS: The lungs are clear and expanded. There is no demonstrated pleural abnormality. Normal size heart. Stable mediastinal contours. Stable osseous structures. Right upper quadrant surgical clips reidentified. RAD/Chest 1 View (Portable) IMPRESSION: No acute process Electronically Signed: Jan Van MD at 23:13 EDT , Service support ,
--- NOTE | 2019-05-17 22:33 | EKG12_ITS ---
Test Reason : CP Blood Pressure : / mmHG Vent. Rate : 100 BPM Atrial Rate : 234 BPM P-R Int : 000 ms QRS Dur : 088 ms QT Int : 380 ms P-R-T Axes : 000 043 054 degrees QTc Int : 490 ms Atrial fibrillation Nonspecific T wave abnormality Prolonged QT Abnormal ECG Confirmed by JUAN J EATON, STEVEN ([id number]), social media editor GABRIELA GOMEZ ([id number]) on 05/19/2019 1:22:22 PM Referred By: DANIEL MAURER/SHAWANDA Confirmed By:SHLOMO ARITA MD
[2019-05-17 23:05] VITALS: BP 131/87; PULSE 107; RESP 14; O2SAT 97
[2019-05-17 23:21] LABS: Absolute Lymphocyte Count 2.42 X10^3/uL (0.83-4.51); Absolute Neutrophil Count 7.4 X10^3/uL (2.0-7.7); Basophil# 0.03 X10^3/uL; Basophil% 0.3 % (0-1); Eosinophil# 0.05 X10^3/uL; Eosinophils% 0.5 % (0-5); Hematocrit 38.3 % (40-54); Hemoglobin 12.7 g/dL (13.0-16.5); Lymphocyte # 2.42 X10^3/ul (4.0); Lymphocyte % 21.8 % (19-41); Mean Corp Hgb Conc 33.2 g/dL (32-36); Mean Corpuscular Hgb 31.1 pg (27.0-32.0); Mean Corpuscular Volume 93.9 fL (80-94); Mean Platelet Vol. 10.9 fl (6.2-12.0); Monocyte# 1.12 X10^3/uL; Monocyte% 10.1 % (0-10); NRBC Flagged by Analyzer 0 % (0-5); Neutrophil # 7.35 X10^3/uL (2.7-7.7); Neutrophil % 66.3 % (47-70); Platelet Count 163 K/mm3 (150-450); RBC Distribution Width CV 13.8 % (11.6-14.6); RBC Distribution Width SD 47.1 fl (35.1-43.9); Red Blood Count 4.08 M/mm3 (4.6-6.2); White Blood Count 11.1 K/mm3 (4.4-11.0)
[2019-05-17 23:37] LABS: Anion Gap 5 (5-15); BUN 23 mg/dL (7-18); Calcium,Total 8.7 mg/dL (8.5-10.1); Chloride 106 mmol/L (98-107); Creatinine, Serum 1.21 mg/dL (0.70-1.30); EST Glomerular Filtration Rate 62 mL/min (>60); Est Glom Filt Rate - Afr Amer 75 mL/min (>60); Estimated Creatinine Clearance 57.05 ml/min; Glucose 302 mg/dL (74-106); Potassium 3.5 mmol/L (3.5-5.1); Sodium Level 141 mmol/L (136-145)
--- NOTE | 2019-05-18 00:12 | NURSING ---
AT 0000 DR. WALTON WAS PAGED FOR DR. GURROLA.
--- NOTE | 2019-05-18 00:13 | NURSING ---
DR. WALOTN RETURNED PAGE AND IS TALKING TO DR. GURROLA AT THIS TIME.
--- NOTE | 2019-05-18 00:18 | ED.VISSUMM ---
- ER Visit Summary Date of Service: 05/18/19 Chief Complaint: Rapid heartbeat History of Present Illness: The patient is a 73 M with a history of atrial fibrillation. He presents for atrial fibrillation that started around 9 PM tonight. The patient had a heart cath yesterday by Dr. Blas. He has multivessel coronary disease and an ejection fraction of 60%. He was advised to discontinue flecainide, and he will start amiodarone on Wednesday, in 2 days. He will also resume his Xarelto at that time. He is not currently on blood thinners. He is compliant with his metoprolol. He is not having any other symptoms. Physical Examination: Afebrile and vital signs unremarkable except for heart rate around 100-110. Heart irregular. Lungs clear. Skin appears normal. Right radial cath site is unremarkable. Test Results: EKG shows atrial fibrillation at a rate of 100. White count 11.1, hemoglobin 12.7, glucose 302, BUN 23, troponin normal. Chest x-ray showed no acute findings. Emergency Department Course and Treatment: Patient presents in atrial fibrillation. Rate is fairly well controlled. Other vitals and symptoms are fairly well-controlled. His work-up, as above, was unremarkable. Patient was discussed with Dr. Philippe. Start Xarelto and amiodarone as planned on Wednesday. Will increase his metoprolol to 75 mg twice a day. Return or call the office for any further issues. Treatment Plan: As above Disposition: Discharge Impression: 1. Atrial fibrillation This note was generated with [employer] Document Management software dictation software. It may contain incorrect words, spelling, and punctuation that were not noted in review of the chart prior to signing ED Disposition - Plan for ED Patient: Referrals: Guanakito Quarles MD [Primary Care Provider] -
--- NOTE | 2019-05-18 00:21 | ED.DEP ---
ED Disposition - Plan for ED Patient: Instructions: Atrial Fibrillation Prescriptions: Metoprolol Tartrate 25 mg PO BID #60 tab Prescription Printed Referrals: Blake Blas MD [STAFF PHYSICIAN] -
[2019-05-18 00:29] VITALS: BP 144/78; PULSE 112; RESP 18; O2SAT 97
[2019-05-18 01:00] VITALS: BP 133/83; PULSE 105; RESP 16; O2SAT 96
[2019-05-18] MEDS: Metoprolol Tartrate 25 MG Tablet PO (01:03)
[2019-05-18 01:10] VITALS: BP 133/83; PULSE 103; RESP 16; O2SAT 96
== END 2019-05-18 01:10 | disposition home or self-care (01) ==
LOC: ED 23:05
PROVIDERS: Emergency Provider Emergency Medicine; Family Provider Family Medicine; PCP Family Medicine
DX: I48.91 Unspecified atrial fibrillation (principal); I25.10 Atherosclerotic heart disease of native coronary artery without angina pectoris; K21.9 Gastro-esophageal reflux disease without esophagitis; E11.9 Type 2 diabetes mellitus without complications; I10 Essential (primary) hypertension; E78.00 Pure hypercholesterolemia, unspecified; Z79.01 Long term (current) use of anticoagulants; Z79.84 Long term (current) use of oral hypoglycemic drugs; Z79.899 Other long term (current) drug therapy
CPT/HCPCS: 71045; 80048; 84484; 85025; 93005; 99285; A4216

== ENCOUNTER → 2019-05-19 09:20 | Outpatient (CLI) | payer MEDICARE, OTHER, SELFPAY ==
[2019-05-17 22:06] VITALS: BMI 26.3
[2019-05-19 11:18] LABS: AST(SGOT) 10 U/L (15-37); Alanine Aminotransfer ALT/SGPT 29 U/L (16-61); Albumin, Serum 3.5 g/dL (3.2-5.0); Alkaline Phosphatase 54 U/L (45-117); Anion Gap 5 (5-15); BUN 26 mg/dL (7-18); BUN/Creat Ratio 23.2 RATIO (10-20); Bilirubin, Direct 0.22 mg/dL (0.00-0.30); Calcium,Total 8.7 mg/dL (8.5-10.1); Chloride 106 mmol/L (98-107); Creatinine, Serum 1.12 mg/dL (0.70-1.30); EST Glomerular Filtration Rate 68 mL/min (>60); Est Glom Filt Rate - Afr Amer 82 mL/min (>60); Globulin 3.3 g/dL (2.2-4.2); Glucose 264 mg/dL (74-106); Protein, Total 6.8 g/dL (6.4-8.2); Sodium Level 141 mmol/L (136-145); T4 Total, Thyroxin 6.7 ug/dL (4.5-12.1); Thyroid Stim Hormone (TSH) 2.39 uIU/mL (0.358-3.74)
== END ==
PROVIDERS: Family Provider Family Medicine; PCP Family Medicine; Referring Provider Internal Medicine Cardiovascular Disease; Visit Provider Internal Medicine Cardiovascular Disease
DX: I48.0 Paroxysmal atrial fibrillation (principal); Z79.899 Other long term (current) drug therapy; I25.10 Atherosclerotic heart disease of native coronary artery without angina pectoris
CPT/HCPCS: 36415; 80048; 80076; 84436; 84443

== ENCOUNTER → 2019-06-05 17:35 | Outpatient (CLI) | payer MEDICARE, OTHER, SELFPAY ==
[2019-05-30 15:20] VITALS: BMI 25.9
== END ==
PROVIDERS: Family Provider Family Medicine; PCP Family Medicine
DX: R82.998 Other abnormal findings in urine (principal)
CPT/HCPCS: 87086; 87088

== ENCOUNTER → 2020-01-04 09:17 | Outpatient (CLI) | payer MEDICARE, OTHER, SELFPAY ==
[2019-05-30 15:20] VITALS: BMI 25.9
[2020-01-04 10:12] LABS: AST(SGOT) 12 U/L (15-37); Alanine Aminotransfer ALT/SGPT 27 U/L (16-61); Albumin, Serum 3.4 g/dL (3.2-5.0); Alkaline Phosphatase 70 U/L (45-117); Bilirubin, Direct 0.23 mg/dL (0.00-0.30); Cholesterol 70 mg/dL (200); Globulin 3.3 g/dL (2.2-4.2); High Density Lipoprotein 29 mg/dL; Protein, Total 6.7 g/dL (6.4-8.2); Triglycerides 55 mg/dL; Very Low Density Lipoprotein 11 mg/dL (5-40)
== END ==
PROVIDERS: PCP Family Medicine; Referring Provider Nurse Practitioner Family; Visit Provider Nurse Practitioner Family
DX: E78.00 Pure hypercholesterolemia, unspecified (principal)
CPT/HCPCS: 36415; 80061; 80076

== ENCOUNTER → 2020-02-19 12:17 | Outpatient (CLI) | payer MEDICARE, OTHER, SELFPAY ==
[2020-01-22 11:03] VITALS: BMI 23.8
[2020-02-19 15:06] LABS: Absolute Lymphocyte Count 1.47 X10^3/uL (0.83-4.51); Absolute Neutrophil Count 4.5 X10^3/uL (2.0-7.7); Basophil# 0.05 X10^3/uL; Basophil% 0.7 % (0-1); Eosinophil# 0.09 X10^3/uL; Eosinophils% 1.3 % (0-5); Hematocrit 37.2 % (40-54); Lymphocyte # 1.47 X10^3/ul (4.0); Lymphocyte % 21.4 % (19-41); Mean Corp Hgb Conc 32.3 g/dL (32-36); Mean Corpuscular Hgb 31.1 pg (27.0-32.0); Mean Corpuscular Volume 96.4 fL (80-94); Monocyte# 0.69 X10^3/uL; NRBC Flagged by Analyzer 0 % (0-5); Neutrophil # 4.54 X10^3/uL (2.7-7.7); Platelet Count 136 K/mm3 (150-450); RBC Distribution Width CV 13.8 % (11.6-14.6); RBC Distribution Width SD 47.9 fl (35.1-43.9); Red Blood Count 3.86 M/mm3 (4.6-6.2); White Blood Count 6.9 K/mm3 (4.4-11.0)
[2020-02-19 15:29] LABS: AST(SGOT) 13 U/L (15-37); Alanine Aminotransfer ALT/SGPT 26 U/L (16-61); Albumin, Serum 3.4 g/dL (3.2-5.0); Alkaline Phosphatase 63 U/L (45-117); Anion Gap 5 (5-15); BUN 13 mg/dL (7-18); Calcium,Total 8.4 mg/dL (8.5-10.1); Chloride 108 mmol/L (98-107); Creatinine, Serum 1.08 mg/dL (0.70-1.30); EST Glomerular Filtration Rate 71 mL/min (>60); Est Glom Filt Rate - Afr Amer 86 mL/min (>60); Globulin 3.5 g/dL (2.2-4.2); Glucose 213 mg/dL (74-106); Potassium 3.2 mmol/L (3.5-5.1); Prealbumin 19.5 mg/dL (20.0-40.0); Protein, Total 6.9 g/dL (6.4-8.2); Sodium Level 140 mmol/L (136-145); Thyroid Stim Hormone (TSH) 1.33 uIU/mL (0.358-3.74)
== END ==
PROVIDERS: PCP Family Medicine; Referring Provider Family Medicine; Visit Provider Family Medicine
DX: R63.4 Abnormal weight loss (principal)
CPT/HCPCS: 36415; 80053; 84134; 84443; 85025

== ENCOUNTER → 2020-08-05 11:50 | Outpatient (CLI) | payer MEDICARE, OTHER, SELFPAY ==
[2020-01-22 11:03] VITALS: BMI 23.8
[2020-08-05 12:21] LABS: Absolute Lymphocyte Count 0.99 X10^3/uL (0.83-4.51); Absolute Neutrophil Count 5.4 X10^3/uL (2.0-7.7); Basophil# 0.04 X10^3/uL; Basophil% 0.5 % (0-1); Eosinophil# 0.18 X10^3/uL; Eosinophils% 2.3 % (0-5); Hematocrit 26.1 % (40-54); Hemoglobin 8.4 g/dL (13.0-16.5); Lymphocyte # 0.99 X10^3/ul (4.0); Lymphocyte % 12.9 % (19-41); Mean Corp Hgb Conc 32.2 g/dL (32-36); Mean Corpuscular Hgb 32.4 pg (27.0-32.0); Mean Corpuscular Volume 100.8 fL (80-94); Monocyte# 0.97 X10^3/uL; Monocyte% 12.6 % (0-10); NRBC Flagged by Analyzer 0 % (0-5); Neutrophil # 5.36 X10^3/uL (2.7-7.7); Neutrophil % 69.7 % (47-70); Platelet Count 148 K/mm3 (150-450); RBC Distribution Width SD 51.5 fl (35.1-43.9); Red Blood Count 2.59 M/mm3 (4.6-6.2); White Blood Count 7.7 K/mm3 (4.4-11.0)
[2020-08-05 12:42] LABS: ALB/GLOB Ratio 0.8 RATIO (0.9-2.4); AST(SGOT) 7 U/L (15-37); Alanine Aminotransfer ALT/SGPT 30 U/L (16-61); Albumin, Serum 2.9 g/dL (3.2-5.0); Alkaline Phosphatase 61 U/L (45-117); Anion Gap 10 (5-15); BUN 75 mg/dL (7-18); BUN/Creat Ratio 10.7 RATIO (10-20); Calcium,Total 8.1 mg/dL (8.5-10.1); Chloride 115 mmol/L (98-107); Creatinine, Serum 7.03 mg/dL (0.70-1.30); EST Glomerular Filtration Rate 8 mL/min (>60); Est Glom Filt Rate - Afr Amer 10 mL/min (>60); Globulin 3.6 g/dL (2.2-4.2); Glucose 188 mg/dL (74-106); Potassium 5.8 mmol/L (3.5-5.1); Protein, Total 6.5 g/dL (6.4-8.2); Sodium Level 141 mmol/L (136-145); Thyroid Stim Hormone (TSH) 1.56 uIU/mL (0.358-3.74)
== END ==
PROVIDERS: PCP Family Medicine; Referring Provider Family Medicine; Visit Provider Nurse Practitioner Adult Health
DX: R53.83 Other fatigue (principal)
CPT/HCPCS: 36415; 80053; 84443; 85025

== ENCOUNTER 2020-08-05 13:36 | Inpatient (IN) | payer MEDICARE, OTHER, SELFPAY ==
[2020-01-22 11:03] VITALS: BMI 23.8
[2020-08-05] VITALS (9 sets, daily range): BP systolic 140–177; BP diastolic 71–76; PULSE 69–74; RESP 15–18; TEMP 35.3–36.9; O2SAT 99–100; BMI 21.6; BMI 21.7
--- NOTE | 2020-08-05 13:54 | CT_ITS ---
STUDY: CT ABDOMEN AND PELVIS WITHOUT CONTRAST REASON FOR EXAM: Male, 74 years old. RENAL FAILURE. RADIATION DOSAGE (If Supplied By Facility): CTDIvol = ( 6.85 ) mGy, DLP = ( 349.34 ) mGycm TECHNIQUE: Transaxial images were obtained from the dome of the diaphragm to the symphysis pubis without oral contrast, and without intravenous contrast. Sagittal and coronal images were reconstructed. Individualized dose optimization techniques were used for this CT. COMPARISON: Comparison is made with prior study dated 03/12/2019. FINDINGS: Small calcified granulomas. Coronary artery calcification. Normal liver. There are surgical clips in the gallbladder fossa consistent with a prior cholecystectomy. There is a benign calcified granuloma of the spleen. Normal pancreas. Normal bilateral adrenal glands. There are 2 punctate nonobstructive calculi in the lower pole calyx of the right kidney. 1.6 cm cyst in the lateral lower aspect of the left kidney The stomach is distended with air and residual food particles. Normal small intestine. Moderate amount of fecal material is seen in the colon. The appendix is visualized and appears normal. There is diffuse atherosclerotic calcification of the abdominal aorta and its major visceral branches, without a demonstrated aneurysm. Normal inferior vena cava. Normal retroperitoneum. Normal urinary bladder. There is enlargement of the prostate gland. This causes indentation at the bladder base. It measures 5.1 cm x 4.6 cm. Central prostatic calcifications are seen. Normal abdominal wall. There are diffuse degenerative changes of the visualized lumbar spine. CT/Abdomen/Pelvis without Cont IMPRESSION: 2 punctate nonobstructive calculi in the lower pole. The right kidney Status post cholecystectomy. Prostatic enlargement with indentation of the bladder base. Electronically Signed: Stanton Betancourt, at 15:03 EST , Service support ,
[2020-08-05 15:35] LABS: Mucous, Urine 0 SEEN /hpf (<or=2+); Squamous Epithelial Cells - UA 0 SEEN /hpf (0-5)
--- NOTE | 2020-08-05 15:37 | HP.PCM_ITS ---
Problem List (1) Acute renal injury Status: Acute (2) Anemia Status: Acute Qualifiers: Anemia type: unspecified type Qualified Code(s): D64.9 - Anemia, unspecified (3) CAD in [place] artery Status: Chronic (4) Wide-complex tachycardia Status: Chronic (5) Pure hypercholesterolemia Status: Chronic (6) Essential hypertension Status: Chronic (7) Paroxysmal atrial fibrillation Status: Chronic History of Present Illness Date of Admission: 08/05/20 Chief Complaint: Abnormal labs at PCP office The patient is a 74 y/o M w/ PMHx: Chronic anemia, Chronic thrombocytopenia, CAD, HTN, HLD, PAF, Hx Wide complex tachycardia, Diabetes mellitus type II, GERD, BPH who presents to the [facility] ED on 08/05/20 sent from his PCP office with history of ~ 6 months of worsening fatigue, malaise, unintended weight loss, occasional loose stools but never black or bright red with recent PCP evaluation with incidentally significant abnormal lab findings prompting referral. He does state specifically however that remotely he had his gallbladder out and since then has never felt well and has progressively lost weight over the last several years but felt worse recently over the last 6 months as noted. He does state that he has been more thirsty lately. Work-up in the ED included T 95.5 temporally, heart rate of 74, BP 153/73, respiratory rate 18, 99% on room air, urinalysis pending per ED, 08/05/2020 outside facility CBC with WC 7.7, hemoglobin 8.4, MCV 100.8, platelet 148 with increased immature granulocytes, 08/05/2020 outside facility CMP with sodium 141, potassium 5.8, chloride 115, carbon oxide 16, anion gap 10, BUN/creatinine 75/7.03, glucose 188, calcium 8.1, total bilirubin 0.30, AST/ALT 7/30, alk phos 61, CT abdomen pelvis without contrast with 2 punctate nonobstructive calculi in the lower pole calyx of the right kidney as well as 1.6 cm cyst in the lateral lower aspect of the left kidney with no acute intra-abdominal findings otherwise. Most recent prior 02/19/20 BUN/Cr 13/1.08. Past Medical History Past Medical History (Chronic Problems): Chronic Problems (Last Reviewed 01/22/20 @ 11:08 by Brittani Peoples) skilled nursing current use of amiodarone (Chronic) CAD in [place] artery (Chronic) Wide-complex tachycardia (Chronic) Pure hypercholesterolemia (Chronic) Essential hypertension (Chronic) Encounter for long-term current use of high risk medication (Chronic) Atherosclerotic heart disease of [place] coronary artery without angina pectoris (Chronic) CX 20-30% prox-mid stenosis, LAD 20-30% and 10-20% anterior trunk stenosis, OM1 20-30% tapering ostial stenosis, RCA 20% prox stenosis- per cath 08/14/08; LEFT MAIN: Mild luminal irregularities; LEFT ANTERIOR DESCENDING ARTERY: PROX LAD: Mild calcification, Mild luminal irregularities, eccentric: 10 - 25 % Stenosis; MID LAD: Mild luminal irregularities; CIRCUMFLEX ARTERY: Mild luminal irregularities; RIGHT CORONARY ARTERY: PROX RCA: Mild calcification, Mild luminal irregularities, eccentric: 10 - 25 % Stenosis MID RCA: Mild luminal irregularities; AORTIC ROOT: Angiographically normal per cath 05/16/19 Paroxysmal atrial fibrillation (Chronic) Gastroesophageal reflux disease (Chronic) Diabetes mellitus, type II (Chronic) Medical History: Medical History (Last Reviewed 01/22/20 @ 11:08 by Brittani Peoples) SOB (shortness of breath) (Acute) R06.02 Wide-complex tachycardia (Acute) I47.2 Pure hypercholesterolemia (Chronic) E78.00 Essential hypertension (Chronic) I10 Atherosclerotic heart disease of [place] coronary artery without angina pectoris (Chronic) I25.10 CX 20-30% prox-mid stenosis, LAD 20-30% and 10-20% anterior trunk stenosis, OM1 20-30% tapering ostial stenosis, RCA 20% prox stenosis- per cath 08/14/08; LEFT MAIN: Mild luminal irregularities; LEFT ANTERIOR DESCENDING ARTERY: PROX LAD: Mild calcification, Mild luminal irregularities, eccentric: 10 - 25 % Stenosis; MID LAD: Mild luminal irregularities; CIRCUMFLEX ARTERY: Mild luminal irregularities; RIGHT CORONARY ARTERY: PROX RCA: Mild calcification, Mild luminal irregularities, eccentric: 10 - 25 % Stenosis MID RCA: Mild luminal irregularities; AORTIC ROOT: Angiographically normal per cath 05/16/19 Paroxysmal atrial fibrillation (Chronic) I48.0 Diabetes mellitus, type II (Chronic) E11.9 Body mass index (bmi) 29.0-29.9, adult Z68.29 Chest pain R07.9 History of left heart catheterization (LHC) Onset Date: ~05/16/19 Z98.890 CX 20-30% prox-mid stenosis, LAD 20-30% and 10-20% anterior trunk stenosis, OM1 20-30% tapering ostial stenosis, RCA 20% prox stenosis- per cath 08/14/08; LEFT MAIN: Mild luminal irregularities; LEFT ANTERIOR DESCENDING ARTERY: PROX LAD: Mild calcification, Mild luminal irregularities, eccentric: 10 - 25 % Stenosis; MID LAD: Mild luminal irregularities; CIRCUMFLEX ARTERY: Mild luminal irregularities; RIGHT CORONARY ARTERY: PROX RCA: Mild calcification, Mild luminal irregularities, eccentric: 10 - 25 % Stenosis MID RCA: Mild luminal irregularities; AORTIC ROOT: Angiographically normal per cath 05/16/19 CAD (coronary artery disease) (Inactive) I25.10 Hyperlipidemia (Inactive) E78.5 Hypertension (Inactive) I10 Allergies scopolamine Adverse Reaction (Verified 08/05/20 13:38) Other HALLUCINATIONS SOME TYPE OF IV DYE FOR ULTRA BRYCE Adverse Reaction (Uncoded 08/05/20 13:38) Other Home Medications: Ambulatory Orders Medication Instructions Recorded Glimepiride [Amaryl] 4 mg PO DAILY 01/21/16 Omeprazole [Prilosec] 40 mg PO DAILY 01/21/16 Tamsulosin HCl [Flomax] 0.4 mg PO DAILY 01/21/16 sitagliptin 100 mg tablet 100 mg PO DAILY 10/26/17 metformin 500 mg tablet 500 mg PO TID tab 10/17/18 metoprolol tartrate 50 mg tablet 50 mg PO BID 10/18/18 omega-3 fatty acids 1,000 mg 1,000 mg PO DAILY@1200 cap 01/22/20 capsule losartan 100 mg tablet 50 mg PO BID #90 tab 07/10/20 pravastatin 20 mg tablet 20 mg PO QHS #90 tab 07/10/20 rivaroxaban 20 mg tablet 20 mg PO DAILY #90 tab 07/10/20 Amiodarone HCl 200 mg PO DAILY 08/05/20 Surgical History: Surgical History (Last Reviewed 01/22/20 @ 11:08 by Brittani Peoples) History of ERCP Z98.890 Hx laparoscopic cholecystectomy Z90.49 Surgical History: cholecystectomy - Cholecystectomy with ERCP. Psychiatric History: No pertinent psych hx Lives: Spouse/ Significant Other Smoking Status: Never smoker Tobacco Use: Non-smoker Alcohol: None Drugs: None - *Family History Maternal Family History: Family History (Last Reviewed 01/22/20 @ 11:08 by Brittani Peoples) Father CAD (coronary artery disease) Mother Alzheimers disease Sister Breast cancer History Items: Dementia Paternal Family History: Family History (Last Reviewed 01/22/20 @ 11:08 by Brittani Peoples) Father CAD (coronary artery disease) Mother Alzheimers disease Sister Breast cancer History Items: Cancer - Father with history of colon cancer., High Cholesterol, Heart Disease, Hypertension Review of Systems Constitutional: Reports: Anorexia, Malaise, Weakness, Weight Change, Fatigue. Denies: Chills, Fever HEENT: Denies: Head Aches, Sinus Congestion, Sinus Drainage Cardiovascular: Denies: Chest Pain, Palpitations Respiratory: Denies: Cough, Shortness of breath at rest, Sputum production Gastrointestinal: Denies: Abdominal Pain, Nausea, Vomiting Genitourinary: Denies: Dysuria Musculoskeletal: Reports: Joint Pain. Denies: Joint Tenderness Skin: Denies: Rash, Wounds Neurological: Denies: Numbness, Tingling, Focal weakness Psychiatric: Denies: Anxiety, Depression, Homicidal Ideations, Suicidal Ideations Hematologic/ Lymphatic: Reports: Anemia, Easy Bruising, Easy Bleeding VTE Information - Inpt Only VTE Present on Admission: No VTE Mechan Device Prophylaxis: SCD's VTE Pharm Prophylaxis ordered?: No Reason prophylaxis not ordered:: Treatment Not Indicated - We will continue patient anticoagulant therapy, renally dosed. Patient Problems: Active and Suspected Problems (Last Reviewed 01/22/20 @ 11:08 by Brittani Peoples) Acute renal injury (Acute) Anemia (Acute) Subjective: Patient seated upright in ED bed, fatigued appearing otherwise no acute distress. Objective: Physical Examination: General: awake, alert, oriented x 3 and cooperative, seated upright in the ED bed in no apparent distress, fatigued appearing. Skin: normal color, turgor, no icterus, cyanosis. HEENT: AT/NC, EOMI, PERRLA, mildly dry MM, no carotid bruits or JVD noted. Lungs: CTA bilaterally, moderate effort, mild decrease BL bases, no rales, ronchi or wheezing. Heart: Regular rate and rhythm; no gallop, rub audible. Abdomen: soft, NTTP, ND, normal BS, no HSM. Extremities: no cyanosis, clubbing, or edema. Neurological: patient awake, alert, oriented as noted; cognitive function appears intact; pupils equally reactive to light and accomodation; cranial nerves II-XII grossly normal, moving all 4 extremities, no focal deficits, strength mildly to moderately global decrease secondary to acute presentation and ongoing issues as noted. Psychiatric: affect appears fatigued otherwise normal, no acute evidence of depressive or anxiety feelings. - Physical Exam Vitals/I&O's: Vital Signs Temp Pulse Resp BP Pulse Ox 95.5 F L 74 18 153/73 H 99 08/05/20 13:36 08/05/20 13:36 08/05/20 13:36 08/05/20 13:36 08/05/20 13:36 Oxygen Delivery Method Room Air Weight: 155 lb Body Mass Index (BMI) 21.6 Finger Stick Blood Glucose 161 Laboratory Results 08/05/20 15:15: Urine Color Pending, Urine Clarity Pending, Urine pH Pending, Ur Specific [place] Pending, Urine Protein Pending, Urine Glucose (UA) Pending, Urine Ketones Pending, Urine Occult Blood Pending, Urine Nitrite Pending, Urine Bilirubin Pending, Urine Urobilinogen Pending, Ur Leukocyte Esterase Pending, Urine RBC Pending, Urine WBC Pending, Ur Squamous Epith Cells Pending, Urine Bacteria Pending, Urine Mucus Pending Assessment/Plan All Active Problems (Last Reviewed 01/22/20 @ 11:08 by Brittani Peoples) Acute renal injury (Acute) Anemia (Acute) SOB (shortness of breath) (Acute) Acute renal injury (Acute) Acute bacterial prostatitis (Resolved) Bacteremia due to Gram-negative bacteria (Resolved) Biloma following surgery (Resolved) Gangrene of gallbladder (Resolved) Hypoalbuminemia (Resolved) Hypokalemia (Resolved) Hypomagnesemia (Resolved) Severe sepsis (Resolved) Thrombocytopenia (Resolved) The patient is a 74 y/o M w/ PMHx: Chronic anemia, Chronic thrombocytopenia, CAD, HTN, HLD, PAF, Hx Wide complex tachycardia, Diabetes mellitus type II, GERD, BPH who presents to the [facility] ED on 08/05/20 sent from his PCP office with history of ~ 6 months of worsening fatigue, malaise, unintended weight loss, occasional loose stools but never black or bright red with recent PCP evaluation with incidentally significant abnormal lab findings prompting referral. 1. Acute kidney injury, unclear etiology: Outside PCP office labs included admission BUN/Cr 75/7.03, prior baseline creatinine noted to be 1.08 02/19/20, urinalysis pending per ED, will admit to medical surgical floor, will judiciously hydrate, will hold nephrotoxic medicines, CT abdomen and pelvis without contrast with 2 punctate nonobstructive calculi in the lower pole with a 1.6 cm cyst in the lateral lower pole of the left kidney otherwise no acute findings, will obtain FeNa and request Nephrology consultation, add appropriate abx if UA notable with pending UCx if appropriate. 2. Acute on chronic anemia, currently appears macrocytic, unclear etiology: Admission 08/05/2020 from outside facility hemoglobin 8.4, prior 02/19/2020 hemoglobin 12 which appeared to be stable and baseline at that time, will obtain iron panel, ferritin, vitamin B12 and folic acid, stool guaiac pending these results alter patient's treatment. 3. Acute hyperkalemia, mild: Admission potassium 5.8, will obtain repeat BMP upon presentation as performed prior to noon on day of presentation, maintain on telemetry as noted, adjust treatment as needed with repeat BMPs if appropriate. EKG with sinus rhythm with well appearing T waves. 4. Chronic thrombocytopenia: Admission platelets 148, previously has been low but this was back in 2014, most recently 02/19/2020 platelet 136, cautiously using heparin chemoprophylaxis given anemia and thrombocytopenia, hold if worsens. 5. CAD: We will continue patient Xarelto pending evaluation of stool guaiac as well as repeat CBCs, may need hold if continued altered labs, continue metoprolol, holding losartan given JAKOB as noted, continue statin therapy. 6. Hypertension: Continue home regimen including amlodipine, metoprolol, holding patient losartan given acute kidney injury as noted, PRN hydralazine. 7. Hyperlipidemia: Continue patient home statin regimen. 8. PAF: We will continue patient home amiodarone as well as metoprolol and Xarelto changed renal dosing with possible hold on anticoagulant therapy pending further evaluation as noted. If creatinine clearance does worsen further then consider changing to potentially to Eliquis. 9. Diabetes mellitus type II: Hold oral home regimen, ADA diet, accu checks w/ ISS. 10. GERD: Maintain on protonix. 11. BPH: Continue home flomax regimen. 12. DVT Prophylaxis: SCDs, xarelto changed to renal dosing with caution as noted above, trending CBC. 13. CODE status: Patient ANA is his and living will is in place. Discussed CODE status at length including difference between FULL code, DNR-CCA and DNR-CC status. Following discussions about the differences in these status, requested Full Code. Advanced Care Planning Face to Face Time: 16 minutes. Inpatient E&M: 81851 Init Hosp L3 Procedures: 11699 Advncd Care Plan 30 Min
--- NOTE | 2020-08-05 15:41 | ED.DCSUM_ITS ---
History of Present Illness Chief Complaint: Abn Labs Narrative: Patient presenting for evaluation due to abnormal laboratory studies. Patient states that over the course of maybe the last 6 months he has been feeling generally ill and having increasing weakness. Patient states that it intermittently is associated with some loose watery stools, but denies any blood or black tarry stools. He denies any fevers. He does endorse that he is had some weight loss. No chest pain. No cough. No shortness of breath. Patient was at his primary care office, and he had laboratory studies drawn and was noted to have a hemoglobin of 8.5 and new onset renal failure with a creatinine of the 7.0. Patient does have an underlying history of A. fib for which he takes Xarelto. Review of systems otherwise negative. Past Medical History - Allergies and Home Meds Allergies/Adverse Reactions: Allergies scopolamine Adverse Reaction (Verified 08/05/20 13:38) Other HALLUCINATIONS SOME TYPE OF IV DYE FOR ULTRA BRYCE Adverse Reaction (Uncoded 08/05/20 13:38) Other Primary Care Physician: Guanakito Quarles MD [Primary Care Provider] - Prior records reviewed: Yes Past Medical History: - - Coronary artery disease, diabetes, hypertension, A. fib Surgical History: cholecystectomy Lives: Spouse/ Significant Other Smoking Status: Never smoker Alcohol: None Drugs: None - Family History Maternal Family History: Family History (Last Reviewed 01/22/20 @ 11:08 by Brittani Peoples) Father CAD (coronary artery disease) Mother Alzheimers disease Sister Breast cancer Family History: Reports: No pertinent history Paternal Family History: Family History (Last Reviewed 01/22/20 @ 11:08 by Brittani Peoples) Father CAD (coronary artery disease) Mother Alzheimers disease Sister Breast cancer Family History: Reports: Cancer - colon cancer, Heart Disease Review of Systems All systems negative except as indicated General: Reports: Malaise, Weight loss Eyes: Denies: Visual changes - bilaterally, Diplopia ENT: Denies: Rhinorrhea, Sore throat Cardiovascular: Denies: Chest pain, Palpitations Respiratory: Denies: Dyspnea, Cough, Dyspnea on exertion Gastrointestinal: Reports: Diarrhea Genitourinary: Denies: Dysuria, Hematuria, Frequency Musculoskeletal: Denies: Back pain, Extremity Pain Skin: Denies: Rash, Wounds Neurological: Denies: Headache, Weakness, Numbness Physical Exam Vital Signs/Narrative: Vital Signs Temp Pulse Resp BP Pulse Ox 08/05/20 13:36 95.5 F L 74 18 153/73 H 99 Diagnostic/Tx/Re-eval Clinical Impression(s) from Imaging Studies Abdomen/Pelvis CT 08/05/20 13:54 IMPRESSION: 2 punctate nonobstructive calculi in the lower pole. The right kidney Status post cholecystectomy. Prostatic enlargement with indentation of the bladder base. Electronically Signed: Stanton Serafin, at 15:03 EST , Service support , Laboratory Data 08/05/20 15:15 Urine Color Yellow Urine Clarity Clear Urine pH 5.0 Ur Specific [place] 1.015 Urine Protein 15 H Urine Glucose (UA) Normal Urine Ketones Negative Urine Occult Blood 25 H Urine Nitrite Negative Urine Bilirubin Negative Urine Urobilinogen Normal Ur Leukocyte Esterase 500 H - Medical Decision Making Patient presented secondary to abnormal labs. Reviewed patient's records, he has evidence of anemia with thrombocytopenia and acute renal failure with an elevated potassium. CT imaging was performed, does not demonstrate evidence of significant underlying pathology that would explain this. There was some enlargement of the patient's prostate. Patient will be admitted to the hospitalist for further work-up and treatment. ED Disposition - Plan for ED Patient: Disposition: Acute Care [facility] Diagnosis: Acute renal injury, Anemia
[2020-08-05 15:44] LABS: Color, Urine Yellow (Yellow); Glucose, Dipstick Normal (Normal); Ketone-Dipstick Negative (Negative); Leukocyte Esterase-Dipstick 500 /ul (Negative); Nitrite-Dipstick Negative (Negative); Occult Blood-Urine 25 /ul (Negative); Protein-Dipstick 15 mg/dl (Negative); Specific Gravity, Urine 1.015 (1.002-1.030); Urine Bilirubin Dipstick Negative (Negative); Urine Clarity Clear (Clear); Urine Urobilinogen Normal (Normal)
--- NOTE | 2020-08-05 15:47 | EKG12_ITS ---
Test Reason : GEN ILLNESS Blood Pressure : / mmHG Vent. Rate : 068 BPM Atrial Rate : 068 BPM P-R Int : 142 ms QRS Dur : 090 ms QT Int : 426 ms P-R-T Axes : 020 042 084 degrees QTc Int : 452 ms Normal sinus rhythm Normal ECG Confirmed by ARTURO EATON, FELIZ ([id number]), television news reporter LO ARRINGTON ([id number]) on 08/07/2020 8:18:10 AM Referred By: NOHEMY Confirmed By:FELIZ MORRIS MD
[2020-08-05 15:59] LABS: Bacteria 2+ /hpf (None Seen); White Blood Cells 5-10 SEEN /hpf (0-5)
[2020-08-05 16:00] LABS: Red Blood Cells-Urine 0-5 SEEN /hpf (0-5)
[2020-08-05] MEDS: 0.9% Normal Saline 1,000 ML 125 ML IV (17:56)
[2020-08-05 18:18] LABS: Vitamin B12 246 pg/mL (211-911)
[2020-08-05 18:42] LABS: Anion Gap 10 (5-15); BUN 75 mg/dL (7-18); BUN/Creat Ratio 10.5 RATIO (10-20); Calcium,Total 8.3 mg/dL (8.5-10.1); Chloride 115 mmol/L (98-107); Creatinine, Serum 7.17 mg/dL (0.70-1.30); EST Glomerular Filtration Rate 8 mL/min (>60); Est Glom Filt Rate - Afr Amer 10 mL/min (>60); Estimated Creatinine Clearance 8.91 ml/min; Ferritin 313 ng/mL (26-388); Glucose 144 mg/dL (74-106); Iron 59 ug/dL (65-175); Iron Binding Capacity,Total 175 ug/dL (250-450); Magnesium 1.4 mg/dL (1.6-2.6); PERCENT IRON SATURATION 33.7 % (15.0-55.0); Potassium 5.5 mmol/L (3.5-5.1); Sodium Level 142 mmol/L (136-145)
[2020-08-05] MEDS: Metoprolol Tartrate 50 MG Tablet PO (21:22)
[2020-08-05] MEDS: Pravastatin 20 MG Tablet PO (21:22)
[2020-08-05] MEDS: Amiodarone 200 MG Tablet PO (21:23)
[2020-08-05 21:55] LABS: Bedside Glucose 169 mg/dL (70-110)
[2020-08-05 22:02] LABS: Urine Sodium 77 mmol/L (Not Establ.)
[2020-08-06] VITALS (13 sets, daily range): BP systolic 111–145; BP diastolic 43–69; PULSE 66–76; RESP 16–18; TEMP 36.7–36.8; O2SAT 98–100
[2020-08-06] MEDS: 0.9% Normal Saline 1,000 ML 125 ML IV (02:06)
[2020-08-06 06:10] LABS: Absolute Lymphocyte Count 1.18 X10^3/uL (0.83-4.51); Absolute Neutrophil Count 3.9 X10^3/uL (2.0-7.7); Basophil# 0.04 X10^3/uL; Basophil% 0.7 % (0-1); Eosinophil# 0.18 X10^3/uL; Hematocrit 21.9 % (40-54); Lymphocyte # 1.18 X10^3/ul (4.0); Lymphocyte % 19.3 % (19-41); Mean Corpuscular Hgb 31.5 pg (27.0-32.0); Mean Corpuscular Volume 98.6 fL (80-94); Mean Platelet Vol. 10.8 fl (6.2-12.0); Monocyte# 0.75 X10^3/uL; Monocyte% 12.3 % (0-10); NRBC Flagged by Analyzer 0 % (0-5); Neutrophil # 3.92 X10^3/uL (2.7-7.7); Neutrophil % 64.2 % (47-70); Platelet Count 120 K/mm3 (150-450); RBC Distribution Width CV 14.3 % (11.6-14.6); RBC Distribution Width SD 51.5 fl (35.1-43.9); Red Blood Count 2.22 M/mm3 (4.6-6.2); White Blood Count 6.1 K/mm3 (4.4-11.0)
[2020-08-06 06:43] LABS: ALB/GLOB Ratio 0.8 RATIO (0.9-2.4); AST(SGOT) 11 U/L (15-37); Alanine Aminotransfer ALT/SGPT 22 U/L (16-61); Albumin, Serum 2.3 g/dL (3.2-5.0); Alkaline Phosphatase 50 U/L (45-117); Anion Gap 10 (5-15); BUN 77 mg/dL (7-18); BUN/Creat Ratio 11.2 RATIO (10-20); Calcium,Total 7.4 mg/dL (8.5-10.1); Chloride 121 mmol/L (98-107); EST Glomerular Filtration Rate 8 mL/min (>60); Est Glom Filt Rate - Afr Amer 10 mL/min (>60); Estimated Creatinine Clearance 9.26 ml/min; Globulin 2.9 g/dL (2.2-4.2); Glucose 33 mg/dL (74-106); Potassium 5.2 mmol/L (3.5-5.1); Protein, Total 5.2 g/dL (6.4-8.2); Sodium Level 145 mmol/L (136-145)
[2020-08-06 07:01] LABS: Bedside Glucose 29 mg/dL (70-110)
--- NOTE | 2020-08-06 07:48 | PN_ITS ---
Patient Problems: Active and Suspected Problems (Last Reviewed 01/22/20 @ 11:08 by Brittani Peoples) Acute renal injury (Acute) Anemia (Acute) Reason for Visit: Acute kidney injury Subjective: Patient is a 74-year-old male sent from PCPs office with abnormal labs. Found to have acute kidney injury with creatinine greater than 7. Patient had normal kidney function as of January 2020. Objective: GENERAL: cooperative HEENT: Atraumatic; EYES; Anicteric, Normal Conjunctiva NECK; supple, normal thyroid, RESPIRATORY: Diminished to auscultation CARDIOVASCULAR: Regular S1 S2, GI: soft, normoactive bowel sounds, : No Renal angle tenderness; EXTREMITIES: No edema, no clubbing, MUSCULOSKELETAL: no muscle waisting NEURO: Awake; no lateralizing signs. SKIN: No Rash PSYCH; Flat affect Vitals/I&O's: Vital Signs Temp Pulse Resp BP Pulse Ox 98.1 F 66 18 111/43 L 98 08/06/20 02:44 08/06/20 07:09 08/06/20 02:44 08/06/20 02:44 08/06/20 02:44 Oxygen Delivery Method Room Air Weight: 70.8 kg Body Mass Index (BMI) 21.7 Finger Stick Blood Glucose 161 Intake and Output for Last 24 Hours 08/04/20 08/05/20 08/06/20 23:59 23:59 23:59 Intake Total 1500 / 1500 Output Total 300 / 300 Balance 1200 / 1200 Laboratory Results 08/05/20 14:00: Sodium 142, Potassium 5.5 H, Chloride 115 H, Carbon Dioxide 17.0 L, Anion Gap 10, BUN 75 H, Creatinine 7.17 H, Estim Creat Clear Calc 8.91, Est GFR (MDRD) Af Amer 10 L, Est GFR (MDRD) Non-Af 8 L, BUN/Creatinine Ratio 10.5, Glucose 144 H, Calcium 8.3 L, Magnesium 1.4 L, Iron 59 L, TIBC 175 L, Iron Saturation 33.7, Ferritin 313, Folate 42.90 08/05/20 14:00: Vitamin B12 246 08/05/20 15:15: Urine Color Yellow, Urine Clarity Clear, Urine pH 5.0, Ur Specific [place] 1.015, Urine Protein 15 H, Urine Glucose (UA) Normal, Urine Ketones Negative, Urine Occult Blood 25 H, Urine Nitrite Negative, Urine Bilirubin Negative, Urine Urobilinogen Normal, Ur Leukocyte Esterase 500 H, Urine RBC 0-5 SEEN, Urine WBC 5-10 SEEN, Ur Squamous Epith Cells 0 SEEN, Urine Bacteria 2+, Urine Mucus 0 SEEN 08/05/20 21:10: Ur Random Sodium 77, Urine Creatinine 34.80 08/05/20 21:11: POC Glucose 169 H 08/06/20 06:04: WBC 6.1, RBC 2.22 L, Hgb 7.0 L, Hct 21.9 L, MCV 98.6 H, MCH 31.5, MCHC 32.0, RDW Std Deviation 51.5 H, RDW Coeff of Dano 14.3, Plt Count 120 L, MPV 10.8, Immature Gran % (Auto) 0.500, Neut % (Auto) 64.2, Lymph % (Auto) 19.3, Armstrong % (Auto) 12.3 H, Eos % (Auto) 3.0, Baso % (Auto) 0.7, Absolute Neuts (auto) 3.9, Absolute Lymphs (auto) 1.18, Nucleated RBC % 0 08/06/20 06:04: Sodium 145, Potassium 5.2 H, Chloride 121 H, Carbon Dioxide 14.0 L, Anion Gap 10, BUN 77 H, Creatinine 6.90 H, Estim Creat Clear Calc 9.26, Est GFR (MDRD) Af Amer 10 L, Est GFR (MDRD) Non-Af 8 L, BUN/Creatinine Ratio 11.2, Glucose 33 L*, Calcium 7.4 L, Total Bilirubin 0.40, AST 11 L, ALT 22, Alkaline Phosphatase 50, Total Protein 5.2 L, Albumin 2.3 L, Globulin 2.9, Albumin/Globulin Ratio 0.8 L 08/06/20 06:42: POC Glucose 29 L* Current Medications Acetaminophen (Acetaminophen 325 Mg Tablet) 650 mg PO Q6H PRN PRN PRN Reason: Pain Score 1-10/Temp > 100.7 F Al Hydroxide/Mg Hydroxide (Mag Hydrox/Al Hydrox/Simeth 30 Ml Udc) 30 ml PO Q6H PRN PRN PRN Reason: Gastric Burning Albuterol Sulfate (Albuterol 2.5 Mg/3 Ml Vial.Neb.) 2.5 mg INHALATION Q2H PRN PRN PRN Reason: Dyspnea, wheezing Amiodarone HCl (Amiodarone 200 Mg Tablet) 200 mg PO [facility]NER [facility] Guaifenesin (Guaifenesin 10 Ml Udc (200mg/10ml)) 20 ml PO Q4H PRN PRN PRN Reason: COUGH Hydralazine HCl (Hydralazine 20 Mg/Ml Vial) 10 mg IV Q4H PRN PRN PRN Reason: SBP > 160 Sodium Chloride () 1,000 mls @ 125 mls/hr IV .Q8H [facility] Last Admin: 08/06/20 02:06 Dose: 125 mls/hr Documented by: Ceftriaxone Sodium 2 gm/ (Sodium Chloride) 50 mls @ 100 mls/hr IV Q24 [facility] Insulin Human Lispro (Insulin Lispro 100 Unit/Ml Insuln.Pen) 0 unit SC ACHS [facility]; Protocol Last Admin: 08/06/20 06:44 Dose: Not Given Documented by: Magnesium Hydroxide (Magnesium Hydroxide 30 Ml Udc) 30 ml PO DAILY PRN PRN PRN Reason: Constipation Melatonin (Melatonin 3 Mg Tablet) 3 mg PO QHS PRN PRN PRN Reason: INSOMNIA Metoprolol Tartrate (Metoprolol Tartrate 50 Mg Tablet) 50 mg PO BID [facility] Last Admin: 08/05/20 21:22 Dose: 50 mg Documented by: Nitroglycerin (Nitroglycerin (Inpatient Use) 0.4 Mg Tab.Subl) 0.4 mg SUBLINGUAL Q5M PRN PRN Reason: CARDIAC/CHEST PAIN Ondansetron HCl (Ondansetron 4 Mg/2 Ml Vial) 4 mg IV Q8H PRN PRN PRN Reason: NAUSEA/VOMITING Pantoprazole Sodium (Pantoprazole Sodium 20 Mg Tablet) 20 mg PO DAILY [facility] Pravastatin Sodium (Pravastatin 20 Mg Tablet) 20 mg PO QHS [facility] Last Admin: 08/05/20 21:22 Dose: 20 mg Documented by: Prochlorperazine Edisylate (Prochlorperazine 10 Mg/2 Ml Vial) 5 mg IV Q4H PRN PRN PRN Reason: Breakthrough nausea/vomiting Psyllium Hydrophilic Mucilloid (Psyllium 1 Packet) 1 packet PO DAILY PRN PRN PRN Reason: Constipation Rivaroxaban (Rivaroxaban 15 Mg Tablet) 15 mg PO DAILY@1700 [facility] Senna/Docusate Sodium (Senna/Docusate Sodium 1 Tablet) 2 tablet PO BID PRN PRN PRN Reason: Constipation Sodium Chloride (0.9% Saline Lock 10 Ml Syringe) 10 - 40 ml IV UD PRN PRN Reason: SALINE FLUSH Tamsulosin HCl (Tamsulosin Hcl 0.4 Mg Capsule) 0.4 mg PO DAILY [facility] Throat Lozenges (Benzocaine/Menthol 1 Lozenge) 1 lozenge MUCOUS MEM Q2H PRN PRN PRN Reason: SORE THROAT STROKE Vital Signs/Narrative: Vital Signs Pulse 08/06/20 07:09 66 08/06/20 04:00 74 Medical Necessity - Tobacco Use Smoking Status: Never smoker Tobacco Use: Non-smoker Assessment/Plan All Active Problems (Last Reviewed 01/22/20 @ 11:08 by Brittani Peoples) Acute renal injury (Acute) Anemia (Acute) SOB (shortness of breath) (Acute) Acute renal injury (Acute) Acute bacterial prostatitis (Resolved) Bacteremia due to Gram-negative bacteria (Resolved) Biloma following surgery (Resolved) Gangrene of gallbladder (Resolved) Hypoalbuminemia (Resolved) Hypokalemia (Resolved) Hypomagnesemia (Resolved) Severe sepsis (Resolved) Thrombocytopenia (Resolved) Patient is a 74-year-old male sent from PCPs office with abnormal labs. Found to have acute kidney injury with creatinine greater than 7. Patient had normal kidney function as of January 2020. 1. Acute kidney injury -The combination of dehydration as well as use of potential nephrotoxic medications. Suspected offending medications held started on IV fluid. Ordered renal ultrasound to rule out bladder outlet obstruction subsequent monitoring of kidney function with daily BMPs 2. Diabetes mellitus type 2 Complications including hypoglycemia. Held patient oral agents placed on Accu- Cheks before meals and at bedtime with sliding scale coverage 3. Paroxysmal A. fib ?Rate controlled on amiodarone did continue also on systemic anticoagulation with rivaroxaban did continue 4. History of wide-complex tachycardia -Is on amiodarone 5. Essential hypertension Patient is on losartan in view of impaired kidney function losartan was held please on hydralazine as needed for systolic blood pressure greater than 160 6. Dyslipidemia -Patient is on statin therapy, continued at home dose 7. GERD ?On PPI 8. BPH -On tamsulosin 9. DVT prophylaxis ~ xarelto Inpatient E&M: [id number] [facility] L[facility]
--- NOTE | 2020-08-06 07:53 | US_ITS ---
STUDY: RENAL ULTRASOUND - COMPLETE REASON FOR EXAM: Male, 74 years old. ACUTE RENAL FAILURE. HX OF DIABETES TECHNIQUE: Ultrasound evaluation of the kidneys was performed with real-time and static stone-scale imaging. COMPARISON: None. FINDINGS: RIGHT KIDNEY: Normal location of the right kidney, which is normal in size. The right kidney measures 10.9 cm x 5.4 cm x 5.9 cm. There is a normal cortex of the right kidney. The renal cortex measures 1.7 cm. There is no right renal mass or cyst. There are no right renal calculi. There is no right hydronephrosis. DISTAL RIGHT URETER: There is non-visualization of the distal right ureter. There is no demonstrated right ureterovesical junction calculus. There is a visualized right ureteral jet. LEFT KIDNEY: Normal location of the left kidney, which is normal in size. The left kidney measures 10.9 cm x 5.8 cm x 6.2 cm. There is a normal cortex of the left kidney. The renal cortex measures 1.8 cm. There is no left renal mass or cyst. There are no left renal calculi. There is no left hydronephrosis. DISTAL LEFT URETER: There is non-visualization of the distal left ureter. There is no demonstrated left ureterovesical junction calculus. There is a visualized left ureteral jet. BLADDER: The distended urinary bladder has a volume of 167 ml. There is a normal wall thickness of the distended urinary bladder. There is no demonstrated mass within the urinary bladder. There are no demonstrated bladder calculi. US/Kidney and Bladder IMPRESSION: Normal ultrasound of the kidneys and urinary bladder. Electronically Signed: Stanton Betancourt, at 13:59 EST , Service support ,
[2020-08-06 08:01] LABS: Bedside Glucose 51 mg/dL (70-110)
[2020-08-06 08:01] LABS: Bedside Glucose 69 mg/dL (70-110)
[2020-08-06] MEDS: Dext 5%-0.45% NS 1,000 ML 150 ML IV ×3 (10:26→23:22)
[2020-08-06] MEDS: Pantoprazole Sodium 20 MG Tablet PO (10:28)
[2020-08-06] MEDS: Tamsulosin HCl 0.4 MG Capsule PO (10:28)
[2020-08-06] MEDS: Metoprolol Tartrate 50 MG Tablet PO ×2 (10:28→21:19)
[2020-08-06] MEDS: Insulin Lispro 100 UNIT/ML INSULN.PEN SC ×3 (11:01→21:24)
[2020-08-06 11:15] LABS: Bedside Glucose 215 mg/dL (70-110)
--- NOTE | 2020-08-06 13:07 | CON.PCM_ITS ---
Consultation - Renal 08/06/20 PCP/ Referring MD: Requesting physician: [] Primary care physician: Dr. Guanakito Quarles MD Reason for Consultation:: jakob - History of Present Illness History of Present Illness: The patient is a 74 year old M with a medical history of chronic anemia chronic thrombocytopenia CAD hypertension dyslipidemia atrial fibrillation wide-complex tachycardia diabetes mellitus type 2 GERD BPH who presented to the emergency room yesterday after being sent from his PCP office for about 6 months of worsening fatigue malaise unintended weight loss occasional loose stools but never hematochezia or melena. He was found to have significant abnormal labs which prompted referral to the emergency room. He states that he lost weight for the past few years but more in the last 6 months. He also has been more thirsty lately. He was found to have potassium of 5.8 with a BUN of 75 creatinine 7.03. Serum creatinine last year has been in the [address] abdomen and pelvis without contrast showed 2 punctate nonobstructive calculi in the lower pole calyx of the right kidney and a cyst in the left kidney but no acute intra-abdominal findings otherwise. His most recent creatinine was 1.08 in January 2020. She denies hematuria dysuria skin rashes dry eyes dry mouth arthralgias myalgias. He denies hemoptysis lower extremity edema puffy face taking NSAIDs. He says he has some diarrhea about 1 to 2 days a week when he has 5-6 runny stools each time. This has been going on for at least 6 to 9 months. He had had decreased p.o. intake of fluids and solids because of decreased appetite for a few months now. He never seen a oracle fusion developer in the past. He follows up with Dr. Maharaj urology for BPH. - Allergies Allergies: Allergies scopolamine Adverse Reaction (Verified 08/05/20 16:32) HALLUCINATIONS SOME TYPE OF IV DYE FOR ULTRA BRYCE Adverse Reaction (Uncoded 08/05/20 16:32) backache Had during ultrasound of his heart - Current Medications Current Medications: Current Medications Acetaminophen (Acetaminophen 325 Mg Tablet) 650 mg PO Q6H PRN PRN PRN Reason: Pain Score 1-10/Temp > 100.7 F Albuterol Sulfate (Albuterol 2.5 Mg/3 Ml Vial.Neb.) 2.5 mg INHALATION Q2H PRN PRN PRN Reason: Dyspnea, wheezing Amiodarone HCl (Amiodarone 200 Mg Tablet) 200 mg PO [facility] Guaifenesin (Guaifenesin 10 Ml Udc (200mg/10ml)) 20 ml PO Q4H PRN PRN PRN Reason: COUGH Hydralazine HCl (Hydralazine 20 Mg/Ml Vial) 10 mg IV Q4H PRN PRN PRN Reason: SBP > 160 Ceftriaxone Sodium 2 gm/ (Sodium Chloride) 50 mls @ 100 mls/hr IV Q24 [facility] Last Infusion: 08/06/20 10:56 Dose: Infused Documented by: Dextrose/Sodium Chloride () 1,000 mls @ 150 mls/hr IV .Q6H40M [facility] Last Infusion: 08/06/20 10:56 Dose: 150 mls/hr Documented by: Insulin Human Lispro (Insulin Lispro 100 Unit/Ml Insuln.Pen) 0 unit SC ACHS [facility]; Protocol Last Admin: 08/06/20 11:01 Dose: 1 u Documented by: Melatonin (Melatonin 3 Mg Tablet) 3 mg PO QHS PRN PRN PRN Reason: INSOMNIA Metoprolol Tartrate (Metoprolol Tartrate 50 Mg Tablet) 50 mg PO BID [facility] Last Admin: 08/06/20 10:28 Dose: 50 mg Documented by: Nitroglycerin (Nitroglycerin (Inpatient Use) 0.4 Mg Tab.Subl) 0.4 mg SUBLINGUAL Q5M PRN PRN Reason: CARDIAC/CHEST PAIN Ondansetron HCl (Ondansetron 4 Mg/2 Ml Vial) 4 mg IV Q8H PRN PRN PRN Reason: NAUSEA/VOMITING Pantoprazole Sodium (Pantoprazole Sodium 20 Mg Tablet) 20 mg PO DAILY [facility] Last Admin: 08/06/20 10:28 Dose: 20 mg Documented by: Pravastatin Sodium (Pravastatin 20 Mg Tablet) 20 mg PO QHS [facility] Last Admin: 08/05/20 21:22 Dose: 20 mg Documented by: Prochlorperazine Edisylate (Prochlorperazine 10 Mg/2 Ml Vial) 5 mg IV Q4H PRN PRN PRN Reason: Breakthrough nausea/vomiting Psyllium Hydrophilic Mucilloid (Psyllium 1 Packet) 1 packet PO DAILY PRN PRN PRN Reason: Constipation Rivaroxaban (Rivaroxaban 15 Mg Tablet) 15 mg PO DAILY@1700 [facility] Senna/Docusate Sodium (Senna/Docusate Sodium 1 Tablet) 2 tablet PO BID PRN PRN PRN Reason: Constipation Sodium Chloride (0.9% Saline Lock 10 Ml Syringe) 10 - 40 ml IV UD PRN PRN Reason: SALINE FLUSH Tamsulosin HCl (Tamsulosin Hcl 0.4 Mg Capsule) 0.4 mg PO DAILY [facility] Last Admin: 08/06/20 10:28 Dose: 0.4 mg Documented by: - Past Medical History Past Medical History (Chronic Problems): Chronic Problems (Last Reviewed 01/22/20 @ 11:08 by Brittani Peoples) assisted current use of amiodarone (Chronic) CAD in [place] artery (Chronic) Wide-complex tachycardia (Chronic) Pure hypercholesterolemia (Chronic) Essential hypertension (Chronic) Encounter for long-term current use of high risk medication (Chronic) Atherosclerotic heart disease of [place] coronary artery without angina pectoris (Chronic) CX 20-30% prox-mid stenosis, LAD 20-30% and 10-20% anterior trunk stenosis, OM1 20-30% tapering ostial stenosis, RCA 20% prox stenosis- per cath 08/14/08; LEFT MAIN: Mild luminal irregularities; LEFT ANTERIOR DESCENDING ARTERY: PROX LAD: Mild calcification, Mild luminal irregularities, eccentric: 10 - 25 % Stenosis; MID LAD: Mild luminal irregularities; CIRCUMFLEX ARTERY: Mild luminal irregularities; RIGHT CORONARY ARTERY: PROX RCA: Mild calcification, Mild luminal irregularities, eccentric: 10 - 25 % Stenosis MID RCA: Mild luminal irregularities; AORTIC ROOT: Angiographically normal per cath 05/16/19 Paroxysmal atrial fibrillation (Chronic) Gastroesophageal reflux disease (Chronic) Diabetes mellitus, type II (Chronic) - Past Surgical History Surgical History: cholecystectomy - Cholecystectomy with ERCP. - Social History Smoking Status: Never smoker Alcohol: None Drugs: None - Family History Maternal Family History: Family History (Last Reviewed 01/22/20 @ 11:08 by Brittani Peoples) Father CAD (coronary artery disease) Mother Alzheimers disease Sister Breast cancer History Items: Dementia Paternal Family History: Family History (Last Reviewed 01/22/20 @ 11:08 by Brittani Peoples) Father CAD (coronary artery disease) Mother Alzheimers disease Sister Breast cancer History Items: Cancer - Father with history of colon cancer., High Cholesterol, Heart Disease, Hypertension Review of Systems Eyes: Reports: - - Negative unless noted above in HPI Patient Problems: Active and Suspected Problems (Last Reviewed 01/22/20 @ 11:08 by Brittani Peoples) Acute renal injury (Acute) Anemia (Acute) - Physical Exam Vitals/I&O's: Vital Signs Temp Pulse Resp BP Pulse Ox 98.2 F 68 16 134/61 H 100 08/06/20 08:00 08/06/20 10:28 08/06/20 08:00 08/06/20 08:00 08/06/20 08:00 Oxygen Delivery Method Room Air Weight: 70.8 kg Body Mass Index (BMI) 21.7 Finger Stick Blood Glucose 161 Intake and Output for Last 24 Hours 08/04/20 08/05/20 08/06/20 23:59 23:59 23:59 Intake Total 2822.5 / 2822.5 Output Total 300 / 300 Balance 2522.5 / 2522.5 General: Alert, Cooperative HEENT: Atraumatic, Normocephalic Oral: Moist Mucosa Lungs: Clear to auscultation, Normal air movement Cardiovascular: Normal S1, Normal S2 Abdomen: Bowel Sounds Present, Soft, Non Tender Extremities: No clubbing, No cyanosis, No edema Skin: No rashes Microbiology Past 72 Hours 08/06/20 07:41 Stool Stool Occult Blood (SKYLER) - Final Occult Blood Positive Laboratory Results 08/05/20 14:00: Sodium 142, Potassium 5.5 H, Chloride 115 H, Carbon Dioxide 17.0 L, Anion Gap 10, BUN 75 H, Creatinine 7.17 H, Estim Creat Clear Calc 8.91, Est GFR (MDRD) Af Amer 10 L, Est GFR (MDRD) Non-Af 8 L, BUN/Creatinine Ratio 10.5, Glucose 144 H, Calcium 8.3 L, Magnesium 1.4 L, Iron 59 L, TIBC 175 L, Iron Saturation 33.7, Ferritin 313, Folate 42.90 08/05/20 14:00: Vitamin B12 246 08/05/20 15:15: Urine Color Yellow, Urine Clarity Clear, Urine pH 5.0, Ur Specific [place] 1.015, Urine Protein 15 H, Urine Glucose (UA) Normal, Urine Ketones Negative, Urine Occult Blood 25 H, Urine Nitrite Negative, Urine Bilirubin Negative, Urine Urobilinogen Normal, Ur Leukocyte Esterase 500 H, Urine RBC 0-5 SEEN, Urine WBC 5-10 SEEN, Ur Squamous Epith Cells 0 SEEN, Urine Bacteria 2+, Urine Mucus 0 SEEN 08/05/20 21:10: Ur Random Sodium 77, Urine Creatinine 34.80 08/05/20 21:11: POC Glucose 169 H 08/06/20 06:04: WBC 6.1, RBC 2.22 L, Hgb 7.0 L, Hct 21.9 L, MCV 98.6 H, MCH 31.5, MCHC 32.0, RDW Std Deviation 51.5 H, RDW Coeff of Dano 14.3, Plt Count 120 L, MPV 10.8, Immature Gran % (Auto) 0.500, Neut % (Auto) 64.2, Lymph % (Auto) 19.3, [place] % (Auto) 12.3 H, Eos % (Auto) 3.0, Baso % (Auto) 0.7, Absolute Neuts (auto) 3.9, Absolute Lymphs (auto) 1.18, Nucleated RBC % 0 08/06/20 06:04: Sodium 145, Potassium 5.2 H, Chloride 121 H, Carbon Dioxide 14.0 L, Anion Gap 10, BUN 77 H, Creatinine 6.90 H, Estim Creat Clear Calc 9.26, Est GFR (MDRD) Af Amer 10 L, Est GFR (MDRD) Non-Af 8 L, BUN/Creatinine Ratio 11.2, Glucose 33 L*, Calcium 7.4 L, Total Bilirubin 0.40, AST 11 L, ALT 22, Alkaline Phosphatase 50, Total Protein 5.2 L, Albumin 2.3 L, Globulin 2.9, Albumin/Globulin Ratio 0.8 L 08/06/20 06:42: POC Glucose 29 L* 08/06/20 07:05: POC Glucose 51 L 08/06/20 07:54: POC Glucose 69 L 08/06/20 10:54: POC Glucose 215 H Current Medications Acetaminophen (Acetaminophen 325 Mg Tablet) 650 mg PO Q6H PRN PRN PRN Reason: Pain Score 1-10/Temp > 100.7 F Albuterol Sulfate (Albuterol 2.5 Mg/3 Ml Vial.Neb.) 2.5 mg INHALATION Q2H PRN PRN PRN Reason: Dyspnea, wheezing Amiodarone HCl (Amiodarone 200 Mg Tablet) 200 mg PO [facility] Guaifenesin (Guaifenesin 10 Ml Udc (200mg/10ml)) 20 ml PO Q4H PRN PRN PRN Reason: COUGH Hydralazine HCl (Hydralazine 20 Mg/Ml Vial) 10 mg IV Q4H PRN PRN PRN Reason: SBP > 160 Ceftriaxone Sodium 2 gm/ (Sodium Chloride) 50 mls @ 100 mls/hr IV Q24 [facility] Last Infusion: 08/06/20 10:56 Dose: Infused Documented by: Dextrose/Sodium Chloride () 1,000 mls @ 150 mls/hr IV .Q6H40M [facility] Last Infusion: 08/06/20 10:56 Dose: 150 mls/hr Documented by: Insulin Human Lispro (Insulin Lispro 100 Unit/Ml Insuln.Pen) 0 unit SC ACHS [facility]; Protocol Last Admin: 08/06/20 11:01 Dose: 1 u Documented by: Melatonin (Melatonin 3 Mg Tablet) 3 mg PO QHS PRN PRN PRN Reason: INSOMNIA Metoprolol Tartrate (Metoprolol Tartrate 50 Mg Tablet) 50 mg PO BID [facility] Last Admin: 08/06/20 10:28 Dose: 50 mg Documented by: Nitroglycerin (Nitroglycerin (Inpatient Use) 0.4 Mg Tab.Subl) 0.4 mg SUBLINGUAL Q5M PRN PRN Reason: CARDIAC/CHEST PAIN Ondansetron HCl (Ondansetron 4 Mg/2 Ml Vial) 4 mg IV Q8H PRN PRN PRN Reason: NAUSEA/VOMITING Pantoprazole Sodium (Pantoprazole Sodium 20 Mg Tablet) 20 mg PO DAILY [facility] Last Admin: 08/06/20 10:28 Dose: 20 mg Documented by: Pravastatin Sodium (Pravastatin 20 Mg Tablet) 20 mg PO QHS [facility] Last Admin: 08/05/20 21:22 Dose: 20 mg Documented by: Prochlorperazine Edisylate (Prochlorperazine 10 Mg/2 Ml Vial) 5 mg IV Q4H PRN PRN PRN Reason: Breakthrough nausea/vomiting Psyllium Hydrophilic Mucilloid (Psyllium 1 Packet) 1 packet PO DAILY PRN PRN PRN Reason: Constipation Rivaroxaban (Rivaroxaban 15 Mg Tablet) 15 mg PO DAILY@1700 [facility] Senna/Docusate Sodium (Senna/Docusate Sodium 1 Tablet) 2 tablet PO BID PRN PRN PRN Reason: Constipation Sodium Chloride (0.9% Saline Lock 10 Ml Syringe) 10 - 40 ml IV UD PRN PRN Reason: SALINE FLUSH Tamsulosin HCl (Tamsulosin Hcl 0.4 Mg Capsule) 0.4 mg PO DAILY [facility] Last Admin: 08/06/20 10:28 Dose: 0.4 mg Documented by: Assessment/Plan All Active Problems (Last Reviewed 01/22/20 @ 11:08 by Brittani Peoples) Acute renal injury (Acute) Anemia (Acute) SOB (shortness of breath) (Acute) Acute renal injury (Acute) Acute bacterial prostatitis (Resolved) Bacteremia due to Gram-negative bacteria (Resolved) Biloma following surgery (Resolved) Gangrene of gallbladder (Resolved) Hypoalbuminemia (Resolved) Hypokalemia (Resolved) Hypomagnesemia (Resolved) Severe sepsis (Resolved) Thrombocytopenia (Resolved) JAKOB?possible dense ATN vs AIN but this time etiology unclear Hyperkalemia?improving Metabolic acidosis-NAG Nephrolithiasis Renal cyst Anemia Diabetes mellitus Follow-up urine culture. Sodium is 145 so agree with hypotonic fluids for now. Add p.o. bicarb Check serologies Follow-up renal ultrasound. agree with holding losartan Further work-up including possible renal biopsy depending on clinical course Avoid nephrotoxins and hypotension assessment and plan was discussed at length with the patient voiced understanding and agrees to proceed with the plan as outlined above. He was given the opportunity to ask questions and stated that those were answered to his satisfaction. Thank you very much for giving the opportunity to participate in the care of this patient. Please do not hesitate to call if you have any questions or concerns.
[2020-08-06] MEDS: Sodium Bicarbonate 650 MG Tablet 1300 MG PO ×3 (14:54→21:19)
[2020-08-06 15:09] LABS: HIV - WCH Non-Reactive (Nonreactive)
--- NOTE | 2020-08-06 15:10 | CASEMGMT ---
RN MEERA DRILL PRESS TENDER CM to room to meet with patient for initial transition planning/care coordination assessment. MAGGIE ESTES introduced self and role at [facility]. Pt voices understanding and consents to assessment at this time. Pt resting in bed in no distress at this time. Pt is A/O at this time and answers all questions appropriately. Care providers, pharmacy, and demographics verified/updated at this time. PCP: Dr Quarles Specialists:Dr Maharaj-urology, Dr Blas--cardiology, Dr Terrazas-GI Preferred Pharmacy: [facility] Retail Insurance:[employer] [place], AARAruna Prescription Benefit: yes Living Will/HPOA: Has both LW and Healthcare POA, who is his , Lucy LNOK: , Lucy. 2 adult children: Miguel Gamboa and Elis Patel Living Arrangements: Lives w/his in one-story home w/one step to enter. Independent w/ADL's and IADL's. is receiving chemo and pt is doing most home mgmt tasks. Transportation: Pt states drives self and states no transportation concerns at this time. able to drive but only does so if has to. Son will take pt home @ d/c. DME: States has the following DME: Shower chair, raised toilet seat, grab bars. Pt states no need for further DME at this time. HHC/SNF: No hx of either. Denies need for HHC or therapy. No needs identified. Pt wishes to return home and states has no concerns with going home at time of discharge. CM to follow for any discharge planning/needs. Pt voices no concerns/needs at this time. Advised pt to ask for CM if any questions/concerns/needs arise. Voices understanding. PLAN: Home Norah TALAVERA RN, CM
[2020-08-06] MEDS: Rivaroxaban 15 MG Tablet PO (17:08)
[2020-08-06] MEDS: Amiodarone 200 MG Tablet PO (17:09)
[2020-08-06 17:31] LABS: Bedside Glucose 276 mg/dL (70-110)
[2020-08-06] MEDS: Pravastatin 20 MG Tablet PO (21:19)
[2020-08-06 21:45] LABS: Bedside Glucose 216 mg/dL (70-110)
[2020-08-07] VITALS (15 sets, daily range): BP systolic 109–148; BP diastolic 53–71; PULSE 62–77; RESP 16–18; TEMP 36.6–37.3; O2SAT 96–100
[2020-08-07] MEDS: Dext 5%-0.45% NS 1,000 ML 150 ML IV (06:01)
[2020-08-07 06:45] LABS: Bedside Glucose 103 mg/dL (70-110)
[2020-08-07 07:04] LABS: Hematocrit 21.1 % (40-54); Hemoglobin 6.8 g/dL (13.0-16.5); Mean Corp Hgb Conc 32.2 g/dL (32-36); Mean Corpuscular Hgb 31.9 pg (27.0-32.0); Mean Corpuscular Volume 99.1 fL (80-94); Mean Platelet Vol. 11.5 fl (6.2-12.0); Platelet Count 111 K/mm3 (150-450); RBC Distribution Width CV 14.2 % (11.6-14.6); RBC Distribution Width SD 51.7 fl (35.1-43.9); Red Blood Count 2.13 M/mm3 (4.6-6.2); White Blood Count 6.7 K/mm3 (4.4-11.0)
[2020-08-07 07:35] LABS: Anion Gap 8 (5-15); BUN 73 mg/dL (7-18); BUN/Creat Ratio 11.1 RATIO (10-20); Calcium,Total 7.1 mg/dL (8.5-10.1); Chloride 117 mmol/L (98-107); Creatinine, Serum 6.58 mg/dL (0.70-1.30); EST Glomerular Filtration Rate 9 mL/min (>60); Est Glom Filt Rate - Afr Amer 11 mL/min (>60); Estimated Creatinine Clearance 10.04 ml/min; Glucose 108 mg/dL (74-106); Magnesium 1.3 mg/dL (1.6-2.6); Potassium 4.6 mmol/L (3.5-5.1); Sodium Level 143 mmol/L (136-145)
--- NOTE | 2020-08-07 08:12 | PCM.PN.HOSP ---
Patient Problems: Active and Suspected Problems (Last Reviewed 01/22/20 @ 11:08 by Brittani Peoples) Acute renal injury (Acute) Anemia (Acute) Reason for Visit: Anemia Acute kidney injury Subjective: Patient is a 74-year-old male sent from PCPs office with abnormal labs. Found to have acute kidney injury with creatinine greater than 7. Patient had normal kidney function as of January 2020. Patient's hemoglobin this a.m. is 6.3. Plan is to transfuse patient with additional unit of PRBC. His stool for guaiac also came back positive do plan to consult general surgery for possible endoscopic evaluation prior to patient being discharged from the hospital Objective: GENERAL: cooperative HEENT: Atraumatic; EYES; Anicteric, Normal Conjunctiva NECK; supple, normal thyroid, RESPIRATORY: Diminished to auscultation CARDIOVASCULAR: Regular S1 S2, GI: soft, normoactive bowel sounds, : No Renal angle tenderness; EXTREMITIES: No edema, no clubbing, MUSCULOSKELETAL: no muscle waisting NEURO: Awake; no lateralizing signs. SKIN: No Rash PSYCH; Flat affect Vitals/I&O's: Vital Signs Temp Pulse Resp BP Pulse Ox 98.6 F 63 16 131/59 H 99 08/07/20 07:58 08/07/20 07:58 08/07/20 07:58 08/07/20 07:58 08/07/20 07:58 Oxygen Delivery Method Room Air Weight: 73.2 kg Body Mass Index (BMI) 21.7 Finger Stick Blood Glucose 161 Intake and Output for Last 24 Hours 08/05/20 08/06/20 08/07/20 23:59 23:59 23:59 Intake Total 5287.5 / 5287.5 997.5 / 997.5 Output Total 1050 / 1050 1125 / 1125 Balance 4237.5 / 4237.5 -127.5 / -127.5 Microbiology Past 72 Hours 08/06/20 07:41 Stool Stool Occult Blood (SKYLER) - Final Occult Blood Positive Laboratory Results 08/06/20 10:54: POC Glucose 215 H 08/06/20 13:54: JOLANTA Screen Pending, JESU-1 Antibody Pending, SS-A/Ro IgG Antibody Pending, SS-B/La IgG Antibody Pending, Sm (Rodriguez) Antibody Pending, EMS DIRECTOR Antibody Pending, Scl-70 Scleroderma Ab Pending, Double Strand DNA Ab Pending, Centromere B Antibody Pending 08/06/20 13:54: Total Protein (PEP) Pending, Ur Total Protein 24 Hr Cancelled, Urine Total Protein Cancelled, Urine Albumin Cancelled, U Lpult-7-Ogpesyrn Cancelled, U Frdgl-2-Ejtgpqey Cancelled, U Beta Globulin Cancelled, U Gamma Globulin Cancelled, U PEP M-Ventura Cancelled, U PEP M-Ventura 24 Hr Cancelled, IgG Pending, IgA Pending, IgM Pending, Albumin (JOSE J) Pending, Albumin/Globulin (JOSE J) Pending, Pzgxy-1-Gswdzggkc JOSE J Pending, Snona-2-Lebdmiszy JOSE J Pending, Beta-Globulins (JOSE J) Pending, Gamma Globulins (JOSE J) Pending, JOSE J M-Ventura Pending, Urine Immunofixation Cancelled, Urine JOSE J Interpret Cancelled, Ur Immunofix PEP Note Cancelled, c-ANCA Antibody Pending, p-ANCA Antibody Pending 08/06/20 13:54: Glomerular Base Memb Ab Pending, Complement C3 Pending, Complement C4 Pending 08/06/20 13:54: RPR Pending 08/06/20 13:54: Hepatitis A IgM Ab Pending, Hep Bs Antigen Pending, Hep B Core IgM Ab Pending, Hepatitis C Ab (EIA) Pending 08/06/20 13:54: HIV 1&2 Antibody Non-Reactive 08/06/20 17:06: POC Glucose 276 H 08/06/20 21:23: POC Glucose 216 H 08/07/20 06:28: POC Glucose 103 08/07/20 06:40: WBC 6.7, RBC 2.13 L, Hgb 6.8 L, Hct 21.1 L, MCV 99.1 H, MCH 31.9, MCHC 32.2, RDW Std Deviation 51.7 H, RDW Coeff of Dano 14.2, Plt Count 111 L, MPV 11.5 08/07/20 06:40: Sodium 143, Potassium 4.6, Chloride 117 H, Carbon Dioxide 18.0 L, Anion Gap 8, BUN 73 H, Creatinine 6.58 H, Estim Creat Clear Calc 10.04, Est GFR (MDRD) Af Amer 11 L, Est GFR (MDRD) Non-Af 9 L, BUN/Creatinine Ratio 11.1, Glucose 108 H, Calcium 7.1 L, Magnesium 1.3 L Current Medications Acetaminophen (Acetaminophen 325 Mg Tablet) 650 mg PO Q6H PRN PRN PRN Reason: Pain Score 1-10/Temp > 100.7 F Albuterol Sulfate (Albuterol 2.5 Mg/3 Ml Vial.Neb.) 2.5 mg INHALATION Q2H PRN PRN PRN Reason: Dyspnea, wheezing Amiodarone HCl (Amiodarone 200 Mg Tablet) 200 mg PO DINNER [facility] Last Admin: 08/06/20 17:09 Dose: 200 mg Documented by: Guaifenesin (Guaifenesin 10 Ml Udc (200mg/10ml)) 20 ml PO Q4H PRN PRN PRN Reason: COUGH Hydralazine HCl (Hydralazine 20 Mg/Ml Vial) 10 mg IV Q4H PRN PRN PRN Reason: SBP > 160 Ceftriaxone Sodium 2 gm/ (Sodium Chloride) 50 mls @ 100 mls/hr IV Q24 [facility] Last Infusion: 08/06/20 10:56 Dose: Infused Documented by: Dextrose/Sodium Chloride () 1,000 mls @ 150 mls/hr IV .Q6H40M [facility] Last Admin: 08/07/20 06:01 Dose: 150 mls/hr Documented by: Insulin Human Lispro (Insulin Lispro 100 Unit/Ml Insuln.Pen) 0 unit SC ACHS [facility]; Protocol Last Admin: 08/07/20 06:29 Dose: Not Given Documented by: Melatonin (Melatonin 3 Mg Tablet) 3 mg PO QHS PRN PRN PRN Reason: INSOMNIA Metoprolol Tartrate (Metoprolol Tartrate 50 Mg Tablet) 50 mg PO BID [facility] Last Admin: 08/06/20 21:19 Dose: 50 mg Documented by: Nitroglycerin (Nitroglycerin (Inpatient Use) 0.4 Mg Tab.Subl) 0.4 mg SUBLINGUAL Q5M PRN PRN Reason: CARDIAC/CHEST PAIN Ondansetron HCl (Ondansetron 4 Mg/2 Ml Vial) 4 mg IV Q8H PRN PRN PRN Reason: NAUSEA/VOMITING Pantoprazole Sodium (Pantoprazole Sodium 20 Mg Tablet) 20 mg PO DAILY [facility] Last Admin: 08/06/20 10:28 Dose: 20 mg Documented by: Pravastatin Sodium (Pravastatin 20 Mg Tablet) 20 mg PO QHS [facility] Last Admin: 08/06/20 21:19 Dose: 20 mg Documented by: Prochlorperazine Edisylate (Prochlorperazine 10 Mg/2 Ml Vial) 5 mg IV Q4H PRN PRN PRN Reason: Breakthrough nausea/vomiting Psyllium Hydrophilic Mucilloid (Psyllium 1 Packet) 1 packet PO DAILY PRN PRN PRN Reason: Constipation Rivaroxaban (Rivaroxaban 15 Mg Tablet) 15 mg PO DAILY@1700 [facility] Last Admin: 08/06/20 17:08 Dose: 15 mg Documented by: Senna/Docusate Sodium (Senna/Docusate Sodium 1 Tablet) 2 tablet PO BID PRN PRN PRN Reason: Constipation Sodium Bicarbonate (Sodium Bicarbonate 650 Mg Tablet) 1,300 mg PO 4X/DAY [facility] Last Admin: 08/06/20 21:19 Dose: 1,300 mg Documented by: Sodium Chloride (0.9% Saline Lock 10 Ml Syringe) 10 - 40 ml IV UD PRN PRN Reason: SALINE FLUSH Tamsulosin HCl (Tamsulosin Hcl 0.4 Mg Capsule) 0.4 mg PO DAILY [facility] Last Admin: 08/06/20 10:28 Dose: 0.4 mg Documented by: STROKE Vital Signs/Narrative: Vital Signs Temp Pulse Resp BP Pulse Ox 08/07/20 07:58 98.6 F 63 16 131/59 H 99 08/07/20 07:10 98 08/07/20 04:29 66 Medical Necessity - Tobacco Use Smoking Status: Never smoker Tobacco Use: Non-smoker Assessment/Plan All Active Problems (Last Reviewed 01/22/20 @ 11:08 by Brittani Peoples) Acute renal injury (Acute) Anemia (Acute) SOB (shortness of breath) (Acute) Acute renal injury (Acute) Acute bacterial prostatitis (Resolved) Bacteremia due to Gram-negative bacteria (Resolved) Biloma following surgery (Resolved) Gangrene of gallbladder (Resolved) Hypoalbuminemia (Resolved) Hypokalemia (Resolved) Hypomagnesemia (Resolved) Severe sepsis (Resolved) Thrombocytopenia (Resolved) Patient is a 74-year-old male sent from PCPs office with abnormal labs. Found to have acute kidney injury with creatinine greater than 7. Patient had normal kidney function as of January 2020. 1. Acute kidney injury -The combination of dehydration as well as use of potential nephrotoxic medications. Suspected offending medications held started on IV fluid. Ordered renal ultrasound to rule out bladder outlet obstruction subsequent monitoring of kidney function with daily BMPs -08/07/2020; patient was seen in consultation by nephrology. Notes and recommendations reviewed 2. Anemia - Secondary suspected to be secondary to anemia of chronic disorder, ordered iron studies. Patient was transfused 1 unit PRBC on 08/07/2020 with subsequent monitoring H&H and transfuse if patient becomes symptomatic or hemoglobin falls below 7. As part of his evaluation ordered iron studies and stool for guaiac 3. Abnormal urinalysis ?Present on admission patient started on Rocephin 4. Diabetes mellitus type 2 Complications including hypoglycemia. Held patient oral agents placed on Accu-Cheks before meals and at bedtime with sliding scale coverage 5. Paroxysmal A. fib ?Rate controlled on amiodarone did continue also on systemic anticoagulation with rivaroxaban did continue -Lovenox have been held in view of patient significant anemia 6. History of wide-complex tachycardia -Is on amiodarone 7. Essential hypertension Patient is on losartan in view of impaired kidney function losartan was held please on hydralazine as needed for systolic blood pressure greater than 160 8. Dyslipidemia -Patient is on statin therapy, continued at home dose 9. GERD ?On PPI 10. BPH -On tamsulosin 10. DVT prophylaxis ~ xarelto -08/07/2020; Xarelto held Inpatient E&M: [id number] [place] [id number]
[2020-08-07 09:40] LABS: Vitamin B12 239 pg/mL (211-911)
[2020-08-07 09:49] LABS: Ferritin 283 ng/mL (26-388); Iron 40 ug/dL (65-175); Iron Binding Capacity,Total 140 ug/dL (250-450); PERCENT IRON SATURATION 28.6 % (15.0-55.0)
[2020-08-07] MEDS: Metoprolol Tartrate 50 MG Tablet PO ×2 (10:16→21:54)
[2020-08-07] MEDS: Tamsulosin HCl 0.4 MG Capsule PO (10:16)
[2020-08-07] MEDS: Pantoprazole Sodium 20 MG Tablet PO (10:16)
[2020-08-07] MEDS: Sodium Bicarbonate 650 MG Tablet 1300 MG PO ×4 (10:17→21:55)
[2020-08-07] MEDS: Insulin Lispro 100 UNIT/ML INSULN.PEN SC ×3 (13:06→21:54)
[2020-08-07 13:20] LABS: Bedside Glucose 298 mg/dL (70-110)
--- NOTE | 2020-08-07 14:07 | RDU_ITS ---
Reason For Study: JAKOB Right Renal Artery Left Renal Artery Right renal artery ostium 91.7/13.1 Left renal artery ostium 51.5/15.0 RSV/EDV. PSV/EDV. Right renal artery proximal Left renal artery proximal PSV/EDV 75.2/22.3 PSV/EDV. 51.5/15.0 . Right renal artery mid 86.2/24.1 Left renal artery mid 69.8/16.8 PSV/EDV. PSV/EDV . Right renal artery distal 71.6/15.0 Left renal artery distal 64.3/15.0. PSV/EDV. PSV/EDV. Right RAR 1.0. Left RAR .7. Right Renal Parenchyma Left Renal Parenchyma Upper Pole Medula 21.5/5.6 PSV/EDV. Left upper pole medulla 35.1/8.1 Right upper pole medulla EDR .26 . PSV/EDV . Right upper pole medulla R.I. 1.0 . Left upper pole medulla EDR .23 . Upper Shine Cortx 13.3/4.5 PSV/EDV. Left upper pole medulla R.I. .77 . Right upper pole cortex EDR .34 . UP Cortex 16.1/5.7 PSV/EDV. Right upper pole cortex R.I. .66 . Left upper pole cortex EDR .35 . Right lower Pole medulla 22.6/4.5 Left upper pole cortex R.I. .65 . PSV/EDV . Left lower Pole medulla 17.3/5.7 Right lower pole medulla EDR .2 . PSV/EDV . Right lower pole medulla R.I. .8 . Left lower pole medulla EDR .33 . Lower Pole Cortex 11.0/3.9 PSV/EDV. Left lower pole medulla R.I. .67 . Right lower pole cortex EDR .35 . Lower Pole Cortx 21.0/7.5 PSV/EDV. Right lower pole cortex R.I. .65 . Left lower pole cortex EDR .36 . Right Renal Hilar Left lower pole cortex R.I. .64 . Right Hilar avg 32.5/6.7 PSV/EDV. Left Renal Hilar Right hilar acceleration time 50.0 LT Hilar avg 27.8/7.5 PSV/EDV . m/sec. Left hilar acceleration time 50.0 Right Renal Dimensions m/sec. Right kidney size 12.2 cm . Left Renal Dimensions Right cortical dimension 2.16 cm . Left kidney size 11.8 cm . Left cortical dimension 1.68 cm . Hypoechoic area on the left kidney measuring 1.58 x 1.83 cm. Area is nonvascular. Aorta Proximal abdominal aorta 1.52 x 1.44 cm . Proximal abdominal aorta peak systolic velocity is 93.5 cm/sec . Distal abdominal aorta 1.5 x 1.5 cm . Distal abdominal aorta peak systolic velocity is 102.6 cm/sec . Normal renal veins bilat. Interpretation Summary Maximal aortic diameter 1.52 x 1.44 cm proximally. Less than 60% stenosis bilateral renal arteries Maintained right renal length 12.2 cm Maintained left renal length at 11.8 cm Left renal cyst 1.58 x 1.83 cm. Clinical correlation would be appropriate Ordering Physician: Mumtaz Brower Performed By: Jesus Carlson RVT
--- NOTE | 2020-08-07 14:25 | PCM.PN.REN ---
Patient Problems: Active and Suspected Problems (Last Reviewed 01/22/20 @ 11:08 by Brittani Peoples) Acute renal injury (Acute) Anemia (Acute) Subjective: The patient denies nausea vomiting shortness of breath change in taste. In fact the patient states he has a good appetite. - Physical Exam Vitals/I&O's: Vital Signs Temp Pulse Resp BP Pulse Ox 98.7 F 67 18 148/68 H 99 08/07/20 13:06 08/07/20 13:06 08/07/20 13:06 08/07/20 13:06 08/07/20 13:06 Oxygen Delivery Method Room Air Weight: 73.2 kg Body Mass Index (BMI) 21.7 Finger Stick Blood Glucose 161 Intake and Output for Last 24 Hours 08/05/20 08/06/20 08/07/20 23:59 23:59 23:59 Intake Total 5287.5 / 5287.5 1556.25 / 1556.25 Output Total 1050 / 1050 1125 / 1125 Balance 4237.5 / 4237.5 431.25 / 431.25 General: Alert, Cooperative HEENT: Atraumatic, Normocephalic Neck: Supple, Trachea Midline Lungs: Clear to auscultation, Normal air movement Cardiovascular: Normal S1, Normal S2 Abdomen: Bowel Sounds Present, Soft Extremities: No edema Microbiology Past 72 Hours 08/06/20 07:41 Stool Stool Occult Blood (SKYLER) - Final Occult Blood Positive Laboratory Results 08/06/20 13:54: Ur Total Protein 24 Hr Cancelled, Urine Total Protein Cancelled, Urine Albumin Cancelled, U Rsshs-3-Stpgtlzr Cancelled, U Kgprr-0-Kvlozofp Cancelled, U Beta Globulin Cancelled, U Gamma Globulin Cancelled, U PEP M-Ventura Cancelled, U PEP M-Ventura 24 Hr Cancelled, Urine Immunofixation Cancelled, Urine JOSE J Interpret Cancelled, Ur Immunofix PEP Note Cancelled 08/06/20 13:54: HIV 1&2 Antibody Non-Reactive 08/06/20 17:06: POC Glucose 276 H 08/06/20 21:23: POC Glucose 216 H 08/07/20 06:28: POC Glucose 103 08/07/20 06:40: WBC 6.7, RBC 2.13 L, Hgb 6.8 L, Hct 21.1 L, MCV 99.1 H, MCH 31.9, MCHC 32.2, RDW Std Deviation 51.7 H, RDW Coeff of Dano 14.2, Plt Count 111 L, MPV 11.5 08/07/20 06:40: Sodium 143, Potassium 4.6, Chloride 117 H, Carbon Dioxide 18.0 L, Anion Gap 8, BUN 73 H, Creatinine 6.58 H, Estim Creat Clear Calc 10.04, Est GFR (MDRD) Af Amer 11 L, Est GFR (MDRD) Non-Af 9 L, BUN/Creatinine Ratio 11.1, Glucose 108 H, Calcium 7.1 L, Magnesium 1.3 L 08/07/20 08:40: Vitamin B12 239 08/07/20 08:40: Iron 40 L, TIBC 140 L, Iron Saturation 28.6, Ferritin 283 08/07/20 08:40: Blood Type A POSITIVE, Antibody Screen NEGATIVE, Crossmatch See Detail 08/07/20 13:05: POC Glucose 298 H Current Medications Acetaminophen (Acetaminophen 325 Mg Tablet) 650 mg PO Q6H PRN PRN PRN Reason: Pain Score 1-10/Temp > 100.7 F Albuterol Sulfate (Albuterol 2.5 Mg/3 Ml Vial.Neb.) 2.5 mg INHALATION Q2H PRN PRN PRN Reason: Dyspnea, wheezing Amiodarone HCl (Amiodarone 200 Mg Tablet) 200 mg PO DINNER [facility] Last Admin: 08/06/20 17:09 Dose: 200 mg Documented by: Guaifenesin (Guaifenesin 10 Ml Udc (200mg/10ml)) 20 ml PO Q4H PRN PRN PRN Reason: COUGH Hydralazine HCl (Hydralazine 20 Mg/Ml Vial) 10 mg IV Q4H PRN PRN PRN Reason: SBP > 160 Ceftriaxone Sodium 2 gm/ (Sodium Chloride) 50 mls @ 100 mls/hr IV Q24 [facility] Last Infusion: 08/07/20 10:46 Dose: Infused Documented by: Dextrose/Sodium Chloride () 1,000 mls @ 75 mls/hr IV .[id number] [facility] Last Infusion: 08/07/20 10:46 Dose: 75 mls/hr Documented by: Insulin Human Lispro (Insulin Lispro 100 Unit/Ml Insuln.Pen) 0 unit SC ACHS [facility]; Protocol Last Admin: 08/07/20 13:06 Dose: 2 u Documented by: Melatonin (Melatonin 3 Mg Tablet) 3 mg PO QHS PRN PRN PRN Reason: INSOMNIA Metoprolol Tartrate (Metoprolol Tartrate 50 Mg Tablet) 50 mg PO BID [facility] Last Admin: 08/07/20 10:16 Dose: 50 mg Documented by: Nitroglycerin (Nitroglycerin (Inpatient Use) 0.4 Mg Tab.Subl) 0.4 mg SUBLINGUAL Q5M PRN PRN Reason: CARDIAC/CHEST PAIN Ondansetron HCl (Ondansetron 4 Mg/2 Ml Vial) 4 mg IV Q8H PRN PRN PRN Reason: NAUSEA/VOMITING Pantoprazole Sodium (Pantoprazole Sodium 20 Mg Tablet) 20 mg PO DAILY [facility] Last Admin: 08/07/20 10:16 Dose: 20 mg Documented by: Pravastatin Sodium (Pravastatin 20 Mg Tablet) 20 mg PO QHS [facility] Last Admin: 08/06/20 21:19 Dose: 20 mg Documented by: Prochlorperazine Edisylate (Prochlorperazine 10 Mg/2 Ml Vial) 5 mg IV Q4H PRN PRN PRN Reason: Breakthrough nausea/vomiting Psyllium Hydrophilic Mucilloid (Psyllium 1 Packet) 1 packet PO DAILY PRN PRN PRN Reason: Constipation Senna/Docusate Sodium (Senna/Docusate Sodium 1 Tablet) 2 tablet PO BID PRN PRN PRN Reason: Constipation Sodium Bicarbonate (Sodium Bicarbonate 650 Mg Tablet) 1,300 mg PO 4X/DAY [facility] Last Admin: 08/07/20 13:12 Dose: 1,300 mg Documented by: Sodium Chloride (0.9% Saline Lock 10 Ml Syringe) 10 - 40 ml IV UD PRN PRN Reason: SALINE FLUSH Tamsulosin HCl (Tamsulosin Hcl 0.4 Mg Capsule) 0.4 mg PO DAILY [facility] Last Admin: 08/07/20 10:16 Dose: 0.4 mg Documented by: Medical Necessity - Tobacco Use Smoking Status: Never smoker Tobacco Use: Non-smoker Assessment/Plan All Active Problems (Last Reviewed 01/22/20 @ 11:08 by Brittani Peoples) Acute renal injury (Acute) Anemia (Acute) SOB (shortness of breath) (Acute) Acute renal injury (Acute) Acute bacterial prostatitis (Resolved) Bacteremia due to Gram-negative bacteria (Resolved) Biloma following surgery (Resolved) Gangrene of gallbladder (Resolved) Hypoalbuminemia (Resolved) Hypokalemia (Resolved) Hypomagnesemia (Resolved) Severe sepsis (Resolved) Thrombocytopenia (Resolved) JAKOB?possible dense ATN vs AIN but this time etiology unclear Hyperkalemia?improving Metabolic acidosis-NAG Nephrolithiasis Renal cyst Anemia Diabetes mellitus Follow-up urine culture. Sodium is 143 so agree with hypotonic fluids for now. Continue p.o. bicarb Follow-up serologies agree with holding losartan Ordered Doppler renal arteries Major risks and benefits of renal biopsy discussed with the patient but he declines renal biopsy. bp ok Avoid nephrotoxins
--- NOTE | 2020-08-07 14:58 | CHAPLAIN ---
Type of Pastoral Visit _x__ Initial Visit ___ Follow-up Visit ___ On-call Visit ___ General Patient Visit ___ Spiritual Assessment ___ Family Conference ___ Bereavement ___ Rapid Response ___ Code Blue ___ Other (describe below) Pastoral Care Referral From ___ Patient ___ Family _x__ Nurse ___ Physician ___ [employer] Programs Director ___ Secretary Specialist ___ Other (describe below) Sacrament/Intervention _x__ Active listening ___ Anointing ___ Mandaen ___ Bereavement ___ Communion ___ [place] exploration ___ _x__ Life review _x__ Prayer ___ Reconciliation ___ Sacrament of Sick _x__ Supportive presence ___ Wedding ___ Other (describe below) Pastoral Comments
[2020-08-07 16:47] LABS: 24HR. UA Prot. Total Volume 2825 mL; 24HR. Urine Creatinine 0.67 g/24 HR (0.90-2.10); Urine Protein (24 Hour) 12.6 mg/dL (<11.9)
[2020-08-07] MEDS: Amiodarone 200 MG Tablet PO (17:00)
[2020-08-07 17:11] LABS: Bedside Glucose 198 mg/dL (70-110)
[2020-08-07] MEDS: Dext 5%-0.45% NS 1,000 ML 75 ML IV (20:05)
[2020-08-07] MEDS: Pravastatin 20 MG Tablet PO (21:55)
[2020-08-07 22:00] LABS: Bedside Glucose 257 mg/dL (70-110)
[2020-08-08] VITALS (14 sets, daily range): BP systolic 111–142; BP diastolic 51–76; PULSE 71–98; RESP 14–16; TEMP 36.7–37.3; O2SAT 97–99
[2020-08-08 01:27] LABS: Rapid Plasmin Reagin (RPR) NONREACTIVE (NONREACTIVE)
[2020-08-08 05:07] LABS: HEPATITIS B SURFACE AG Negative (Negative); Hepatitis A IgM Antibody Negative (Negative); Hepatitis B Core AB IgM Negative (Negative)
[2020-08-08 06:17] LABS: Hematocrit 23.5 % (40-54); Hemoglobin 7.9 g/dL (13.0-16.5); Mean Corp Hgb Conc 33.6 g/dL (32-36); Mean Corpuscular Hgb 32.4 pg (27.0-32.0); Mean Corpuscular Volume 96.3 fL (80-94); Platelet Count 106 K/mm3 (150-450); RBC Distribution Width CV 15.2 % (11.6-14.6); RBC Distribution Width SD 53.5 fl (35.1-43.9); Red Blood Count 2.44 M/mm3 (4.6-6.2); White Blood Count 6.8 K/mm3 (4.4-11.0)
[2020-08-08 06:30] LABS: Bedside Glucose 107 mg/dL (70-110)
[2020-08-08 06:37] LABS: Anion Gap 11 (5-15); BUN 72 mg/dL (7-18); BUN/Creat Ratio 10.7 RATIO (10-20); Chloride 118 mmol/L (98-107); Creatinine, Serum 6.71 mg/dL (0.70-1.30); EST Glomerular Filtration Rate 9 mL/min (>60); Est Glom Filt Rate - Afr Amer 10 mL/min (>60); Estimated Creatinine Clearance 9.77 ml/min; Glucose 106 mg/dL (74-106); Potassium 4.5 mmol/L (3.5-5.1); Sodium Level 145 mmol/L (136-145)
--- NOTE | 2020-08-08 08:03 | PCM.PN.HOSP ---
Patient Problems: Active and Suspected Problems (Last Reviewed 01/22/20 @ 11:08 by Brittani Peoples) Acute renal injury (Acute) Anemia (Acute) Reason for Visit: Anemia Renal failure Subjective: No significant improvement in patient kidney function. Hemoglobin up to 7.9 after being transfused with 1 unit PRBC. Consult was placed to general surgery for possible upper endoscopy given patient guaiac positive stools. Of note patient had a colonoscopy in January [address] Terrazas found 3 polyps no malignancy. Did request for old records. Objective: GENERAL: cooperative HEENT: Atraumatic; EYES; Anicteric, Normal Conjunctiva NECK; supple, normal thyroid, RESPIRATORY: Diminished to auscultation CARDIOVASCULAR: Regular S1 S2, GI: soft, normoactive bowel sounds, : No Renal angle tenderness; EXTREMITIES: No edema, no clubbing, MUSCULOSKELETAL: no muscle waisting NEURO: Awake; no lateralizing signs. SKIN: No Rash PSYCH; Flat affect Vitals/I&O's: Vital Signs Temp Pulse Resp BP Pulse Ox 98.9 F 87 16 113/51 L 97 08/08/20 02:10 08/08/20 04:32 08/08/20 02:10 08/08/20 02:10 08/08/20 02:10 Oxygen Delivery Method Room Air Weight: 72.631 kg Body Mass Index (BMI) 21.7 Finger Stick Blood Glucose 161 Intake and Output for Last 24 Hours 08/06/20 08/07/20 08/08/20 23:59 23:59 23:59 Intake Total 5287.5 / 5287.5 2047.50 / 2047.50 Output Total 1050 / 1050 2075 / 2075 850 / 850 Balance 4237.5 / 4237.5 -27.50 / -27.50 -850 / -850 Microbiology Past 72 Hours 08/06/20 07:41 Stool Stool Occult Blood (SKYLER) - Final Occult Blood Positive Laboratory Results 08/06/20 13:54: RPR NONREACTIVE 08/07/20 08:40: Vitamin B12 239 08/07/20 08:40: Iron 40 L, TIBC 140 L, Iron Saturation 28.6, Ferritin 283 08/07/20 08:40: Blood Type A POSITIVE, Antibody Screen NEGATIVE, Crossmatch See Detail 08/07/20 13:05: POC Glucose 298 H 08/07/20 15:30: Ur Total Protein 24 Hr Pending, Urine Total Protein Pending, Urine Albumin Pending, U Onvyg-8-Qsmsrley Pending, U Oduby-0-Smqodzhh Pending, U Beta Globulin Pending, U Gamma Globulin Pending 08/07/20 15:30: Ur Collection Duration 24.0, Urine Total Volume 2.80, Urine Creatinine 23.80, Ur Creatinine 24 Hour 0.67 L 08/07/20 15:30: Urine Collection Time 24.0, Timed Urine Volume 2825, Ur Total Protein 24 Hr 356.0 H, Urine Total Protein 12.6 H 08/07/20 16:55: POC Glucose 198 H 08/07/20 21:52: POC Glucose 257 H 08/08/20 05:50: WBC 6.8, RBC 2.44 L, Hgb 7.9 L, Hct 23.5 L, MCV 96.3 H, MCH 32.4 H, MCHC 33.6, RDW Std Deviation 53.5 H, RDW Coeff of Dano 15.2 H, Plt Count 106 L, MPV 12.0 08/08/20 05:50: Sodium 145, Potassium 4.5, Chloride 118 H, Carbon Dioxide 16.0 L, Anion Gap 11, BUN 72 H, Creatinine 6.71 H, Estim Creat Clear Calc 9.77, Est GFR (MDRD) Af Amer 10 L, Est GFR (MDRD) Non-Af 9 L, BUN/Creatinine Ratio 10.7, Glucose 106, Calcium 7.0 L 08/08/20 06:26: POC Glucose 107 Current Medications Acetaminophen (Acetaminophen 325 Mg Tablet) 650 mg PO Q6H PRN PRN PRN Reason: Pain Score 1-10/Temp > 100.7 F Albuterol Sulfate (Albuterol 2.5 Mg/3 Ml Vial.Neb.) 2.5 mg INHALATION Q2H PRN PRN PRN Reason: Dyspnea, wheezing Amiodarone HCl (Amiodarone 200 Mg Tablet) 200 mg PO DINNER [facility] Last Admin: 08/07/20 17:00 Dose: 200 mg Documented by: Guaifenesin (Guaifenesin 10 Ml Udc (200mg/10ml)) 20 ml PO Q4H PRN PRN PRN Reason: COUGH Hydralazine HCl (Hydralazine 20 Mg/Ml Vial) 10 mg IV Q4H PRN PRN PRN Reason: SBP > 160 Ceftriaxone Sodium 2 gm/ (Sodium Chloride) 50 mls @ 100 mls/hr IV Q24 [facility] Last Infusion: 08/07/20 10:46 Dose: Infused Documented by: Dextrose/Sodium Chloride () 1,000 mls @ 75 mls/hr IV .[id number] [facility] Last Admin: 08/07/20 20:05 Dose: 75 mls/hr Documented by: Insulin Human Lispro (Insulin Lispro 100 Unit/Ml Insuln.Pen) 0 unit SC ACHS [facility]; Protocol Last Admin: 08/08/20 06:27 Dose: Not Given Documented by: Melatonin (Melatonin 3 Mg Tablet) 3 mg PO QHS PRN PRN PRN Reason: INSOMNIA Metoprolol Tartrate (Metoprolol Tartrate 50 Mg Tablet) 50 mg PO BID [facility] Last Admin: 08/07/20 21:54 Dose: 50 mg Documented by: Nitroglycerin (Nitroglycerin (Inpatient Use) 0.4 Mg Tab.Subl) 0.4 mg SUBLINGUAL Q5M PRN PRN Reason: CARDIAC/CHEST PAIN Ondansetron HCl (Ondansetron 4 Mg/2 Ml Vial) 4 mg IV Q8H PRN PRN PRN Reason: NAUSEA/VOMITING Pantoprazole Sodium (Pantoprazole Sodium 20 Mg Tablet) 20 mg PO DAILY [facility] Last Admin: 08/07/20 10:16 Dose: 20 mg Documented by: Pravastatin Sodium (Pravastatin 20 Mg Tablet) 20 mg PO QHS [facility] Last Admin: 08/07/20 21:55 Dose: 20 mg Documented by: Prochlorperazine Edisylate (Prochlorperazine 10 Mg/2 Ml Vial) 5 mg IV Q4H PRN PRN PRN Reason: Breakthrough nausea/vomiting Psyllium Hydrophilic Mucilloid (Psyllium 1 Packet) 1 packet PO DAILY PRN PRN PRN Reason: Constipation Senna/Docusate Sodium (Senna/Docusate Sodium 1 Tablet) 2 tablet PO BID PRN PRN PRN Reason: Constipation Sodium Bicarbonate (Sodium Bicarbonate 650 Mg Tablet) 1,300 mg PO 4X/DAY [facility] Last Admin: 08/07/20 21:55 Dose: 1,300 mg Documented by: Sodium Chloride (0.9% Saline Lock 10 Ml Syringe) 10 - 40 ml IV UD PRN PRN Reason: SALINE FLUSH Tamsulosin HCl (Tamsulosin Hcl 0.4 Mg Capsule) 0.4 mg PO DAILY [facility] Last Admin: 08/07/20 10:16 Dose: 0.4 mg Documented by: STROKE Vital Signs/Narrative: Vital Signs Pulse 08/08/20 04:32 87 Medical Necessity - Tobacco Use Smoking Status: Never smoker Tobacco Use: Non-smoker Assessment/Plan All Active Problems (Last Reviewed 01/22/20 @ 11:08 by Brittani Peoples) Acute renal injury (Acute) Anemia (Acute) SOB (shortness of breath) (Acute) Acute renal injury (Acute) Acute bacterial prostatitis (Resolved) Bacteremia due to Gram-negative bacteria (Resolved) Biloma following surgery (Resolved) Gangrene of gallbladder (Resolved) Hypoalbuminemia (Resolved) Hypokalemia (Resolved) Hypomagnesemia (Resolved) Severe sepsis (Resolved) Thrombocytopenia (Resolved) Patient is a 74-year-old male sent from PCPs office with abnormal labs. Found to have acute kidney injury with creatinine greater than 7. Patient had normal kidney function as of January 2020. 1. Acute kidney injury -The combination of dehydration as well as use of potential nephrotoxic medications. Suspected offending medications held started on IV fluid. Ordered renal ultrasound to rule out bladder outlet obstruction subsequent monitoring of kidney function with daily BMPs -08/07/2020; patient was seen in consultation by nephrology. Notes and recommendations reviewed -08/08/2020 no significant improvement in patient kidney function. 2. Anemia - Secondary suspected to be secondary to anemia of chronic disorder, ordered iron studies. Patient was transfused 1 unit PRBC on 08/07/2020 with subsequent monitoring H&H and transfuse if patient becomes symptomatic or hemoglobin falls below 7. As part of his evaluation ordered iron studies and stool for guaiac -08/08/2020; patient states he had a negative colonoscopy in January. He has never had an EGD. He is to is guaiac positive. Plan is to consult general surgery for possible endoscopic evaluation - 08/08/2020. Hemoglobin up to 7.9 after being transfused with 1 unit PRBC. Consult was placed to general surgery for possible upper endoscopy given patient guaiac positive stools. Of note patient had a colonoscopy in [address] Terrazas found 3 polyps no malignancy. Did request for old records. 3. Abnormal urinalysis ?Present on admission patient started on Rocephin 4. Diabetes mellitus type 2 Complications including hypoglycemia. Held patient oral agents placed on Accu-Cheks before meals and at bedtime with sliding scale coverage 5. Paroxysmal A. fib ?Rate controlled on amiodarone did continue also on systemic anticoagulation with rivaroxaban did continue -Lovenox have been held in view of patient significant anemia 6. History of wide-complex tachycardia -Is on amiodarone 7. Essential hypertension Patient is on losartan in view of impaired kidney function losartan was held please on hydralazine as needed for systolic blood pressure greater than 160 8. Dyslipidemia -Patient is on statin therapy, continued at home dose 9. GERD ?On PPI 10. BPH -On tamsulosin 10. DVT prophylaxis ~ xarelto -08/07/2020; Xarelto held Inpatient E&M: 64928 Subs Hosp L2
[2020-08-08 09:00] LABS: Hep C Antibodies <0.1 s/co ratio (0.0-0.9)
[2020-08-08] MEDS: Dext 5%-0.45% NS 1,000 ML 75 ML IV ×2 (09:09→22:46)
[2020-08-08] MEDS: Tamsulosin HCl 0.4 MG Capsule PO (10:01)
[2020-08-08] MEDS: Metoprolol Tartrate 50 MG Tablet PO ×2 (10:01→22:23)
[2020-08-08] MEDS: Pantoprazole Sodium 20 MG Tablet PO (10:01)
[2020-08-08] MEDS: Sodium Bicarbonate 650 MG Tablet 1300 MG PO ×4 (10:02→22:23)
[2020-08-08] MEDS: Acetaminophen 325 MG Tablet 650 MG PO (10:12)
[2020-08-08] MEDS: Insulin Lispro 100 UNIT/ML INSULN.PEN SC ×3 (11:35→22:27)
[2020-08-08 11:46] LABS: Bedside Glucose 333 mg/dL (70-110)
[2020-08-08 12:08] LABS: Complement C3 80 mg/dL (82-167)
--- NOTE | 2020-08-08 12:31 | CON.PCM_ITS ---
Reason for Consult Date of Consultation: 08/09/20 Reason for Consultation: Anemia possible EGD History of Present Illness: The patient is a 74 year old M Presented to the ER due to nausea. Labs on admission showed acute kidney injury and anemia. Patient did get 1 unit packed red blood cells. Patient states he has bowel movements daily denies any blood black or red in stool. Patient's last colonoscopy was December or January 2020 couple polyps were found by Dr. Terrazas. Patient currently denies any abdominal pain. Patient states he had previous EGD years ago has been on PPIs daily since.Patient states he is also had some weight loss over the last 5 years some was intentional, but after about 190 pounds it has not been intentional. Patient states over the last 6 months he has been maintaining about the same. 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) Wide-complex tachycardia (Chronic) Pure hypercholesterolemia (Chronic) Essential hypertension (Chronic) Encounter for long-term current use of high risk medication (Chronic) Atherosclerotic heart disease of [place] coronary artery without angina pectoris (Chronic) CX 20-30% prox-mid stenosis, LAD 20-30% and 10-20% anterior trunk stenosis, OM1 20-30% tapering ostial stenosis, RCA 20% prox stenosis- per cath 08/14/08; LEFT MAIN: Mild luminal irregularities; LEFT ANTERIOR DESCENDING ARTERY: PROX LAD: Mild calcification, Mild luminal irregularities, eccentric: 10 - 25 % Stenosis; MID LAD: Mild luminal irregularities; CIRCUMFLEX ARTERY: Mild luminal irregularities; RIGHT CORONARY ARTERY: PROX RCA: Mild calcification, Mild luminal irregularities, eccentric: 10 - 25 % Stenosis MID RCA: Mild luminal irregularities; AORTIC ROOT: Angiographically normal per cath 05/16/19 Paroxysmal atrial fibrillation (Chronic) Gastroesophageal reflux disease (Chronic) Diabetes mellitus, type II (Chronic) Medical History: Medical History (Last Reviewed 01/22/20 @ 11:08 by Brittani Peoples) SOB (shortness of breath) (Acute) R06.02 Wide-complex tachycardia (Chronic) I47.2 Pure hypercholesterolemia (Chronic) E78.00 Essential hypertension (Chronic) I10 Atherosclerotic heart disease of [place] coronary artery without angina pectoris (Chronic) I25.10 CX 20-30% prox-mid stenosis, LAD 20-30% and 10-20% anterior trunk stenosis, OM1 20-30% tapering ostial stenosis, RCA 20% prox stenosis- per cath 08/14/08; LEFT MAIN: Mild luminal irregularities; LEFT ANTERIOR DESCENDING ARTERY: PROX LAD: Mild calcification, Mild luminal irregularities, eccentric: 10 - 25 % Stenosis; MID LAD: Mild luminal irregularities; CIRCUMFLEX ARTERY: Mild luminal irregularities; RIGHT CORONARY ARTERY: PROX RCA: Mild calcification, Mild luminal irregularities, eccentric: 10 - 25 % Stenosis MID RCA: Mild luminal irregularities; AORTIC ROOT: Angiographically normal per cath 05/16/19 Paroxysmal atrial fibrillation (Chronic) I48.0 Diabetes mellitus, type II (Chronic) E11.9 Body mass index (bmi) 29.0-29.9, adult Z68.29 Chest pain R07.9 History of left heart catheterization (LHC) Onset Date: ~05/16/19 Z98.890 CX 20-30% prox-mid stenosis, LAD 20-30% and 10-20% anterior trunk stenosis, OM1 20-30% tapering ostial stenosis, RCA 20% prox stenosis- per cath 08/14/08; LEFT MAIN: Mild luminal irregularities; LEFT ANTERIOR DESCENDING ARTERY: PROX LAD: Mild calcification, Mild luminal irregularities, eccentric: 10 - 25 % Stenosis; MID LAD: Mild luminal irregularities; CIRCUMFLEX ARTERY: Mild luminal irregularities; RIGHT CORONARY ARTERY: PROX RCA: Mild calcification, Mild luminal irregularities, eccentric: 10 - 25 % Stenosis MID RCA: Mild luminal irregularities; AORTIC ROOT: Angiographically normal per cath 05/16/19 CAD (coronary artery disease) (Inactive) I25.10 Hyperlipidemia (Inactive) E78.5 Hypertension (Inactive) I10 Allergies scopolamine Adverse Reaction (Verified 08/05/20 16:32) HALLUCINATIONS SOME TYPE OF IV DYE FOR ULTRA BRYCE Adverse Reaction (Uncoded 08/05/20 16:32) backache Had during ultrasound of his heart Home Medications: Ambulatory Orders Medication Instructions Recorded Glimepiride [Amaryl] 4 mg PO DAILY 01/21/16 Omeprazole [Prilosec] 40 mg PO DAILY 01/21/16 Tamsulosin HCl [Flomax] 0.4 mg PO DAILY 01/21/16 sitagliptin 100 mg tablet 100 mg PO DAILY 10/26/17 metformin 500 mg tablet 500 mg PO TID tab 10/17/18 metoprolol tartrate 50 mg tablet 50 mg PO BID 10/18/18 omega-3 fatty acids 1,000 mg 1,000 mg PO DAILY@1200 cap 01/22/20 capsule losartan 100 mg tablet 50 mg PO BID #90 tab 07/10/20 pravastatin 20 mg tablet 20 mg PO QHS #90 tab 07/10/20 rivaroxaban 20 mg tablet 20 mg PO DAILY #90 tab 07/10/20 Amiodarone HCl 200 mg PO DAILY 08/05/20 Surgical History: Surgical History (Last Reviewed 01/22/20 @ 11:08 by Brittani Peoples) History of ERCP Z98.890 Hx laparoscopic cholecystectomy Z90.49 Surgical History: cholecystectomy - Cholecystectomy with ERCP. Psychiatric History: No pertinent psych hx Lives: Spouse/ Significant Other Smoking Status: Never smoker Tobacco Use: Non-smoker Alcohol: None Drugs: None - *Family History Maternal Family History: Family History (Last Reviewed 01/22/20 @ 11:08 by Brittani Peoples) Father CAD (coronary artery disease) Mother Alzheimers disease Sister Breast cancer History Items: Dementia Paternal Family History: Family History (Last Reviewed 01/22/20 @ 11:08 by Brittani Peoples) Father CAD (coronary artery disease) Mother Alzheimers disease Sister Breast cancer History Items: Cancer - Father with history of colon cancer., High Cholesterol, Heart Disease, Hypertension Review of Systems Constitutional: Reports: Anorexia Eyes: Denies: Blurred vision HEENT: Denies: Difficulty Swallowing Cardiovascular: Denies: Chest Pain Respiratory: Denies: Cough Gastrointestinal: Reports: Abdominal Pain, Nausea. Denies: Constipation, D iarrhea, Hematochezia, Melena, Vomiting Genitourinary: Denies: Dysuria Skin: Denies: Jaundice Neurological: Denies: Balance problems Hematologic/ Lymphatic: Reports: Anemia. Denies: Easy Bleeding Patient Problems: Active and Suspected Problems (Last Reviewed 01/22/20 @ 11:08 by Brittani Peoples) Acute renal injury (Acute) Anemia (Acute) - Physical Exam Vitals/I&O's: Vital Signs Temp Pulse Resp BP Pulse Ox 99.0 F 98 16 138/75 H 98 08/08/20 08:46 08/08/20 10:01 08/08/20 08:46 08/08/20 08:46 08/08/20 08:46 Oxygen Delivery Method Room Air Weight: 160 lb 2 oz Body Mass Index (BMI) 21.7 Finger Stick Blood Glucose 161 Intake and Output for Last 24 Hours 08/06/20 08/07/20 08/08/20 23:59 23:59 23:59 Intake Total 5287.5 / 5287.5 2047.50 / 2047.50 980 / 980 Output Total 1050 / 1050 2075 / 2075 850 / 850 Balance 4237.5 / 4237.5 -27.50 / -27.50 130 / 130 General: Alert, Oriented x3, Cooperative, No apparent distress HEENT: Atraumatic Lungs: Normal air movement Cardiovascular: Regular rate Abdomen: Soft, Non Tender, Non-Distended Extremities: No clubbing, No cyanosis, No edema Neurological: Cranial nerves II-XII grossly intact Psych/Mental Status: Normal Affect Microbiology Past 72 Hours 08/06/20 07:41 Stool Stool Occult Blood (SKYLER) - Final Occult Blood Positive Laboratory Results 08/06/20 13:54: RPR NONREACTIVE 08/06/20 13:54: Hepatitis A IgM Ab Negative, Hep Bs Antigen Negative, Hep B Core IgM Ab Negative, Hepatitis C Ab (EIA) <0.1 08/07/20 08:40: Crossmatch See Detail 08/07/20 13:05: POC Glucose 298 H 08/07/20 15:30: Ur Total Protein 24 Hr Pending, Urine Total Protein Pending, Urine Albumin Pending, U Ytxxe-8-Vztruqta Pending, U Dwlhf-3-Ggmwrciq Pending, U Beta Globulin Pending, U Gamma Globulin Pending 08/07/20 15:30: Ur Collection Duration 24.0, Urine Total Volume 2.80, Urine Creatinine 23.80, Ur Creatinine 24 Hour 0.67 L 08/07/20 15:30: Urine Collection Time 24.0, Timed Urine Volume 2825, Ur Total Protein 24 Hr 356.0 H, Urine Total Protein 12.6 H 08/07/20 16:55: POC Glucose 198 H 08/07/20 21:52: POC Glucose 257 H 08/08/20 05:50: WBC 6.8, RBC 2.44 L, Hgb 7.9 L, Hct 23.5 L, MCV 96.3 H, MCH 32.4 H, MCHC 33.6, RDW Std Deviation 53.5 H, RDW Coeff of Dano 15.2 H, Plt Count 106 L, MPV 12.0 08/08/20 05:50: Sodium 145, Potassium 4.5, Chloride 118 H, Carbon Dioxide 16.0 L , Anion Gap 11, BUN 72 H, Creatinine 6.71 H, Estim Creat Clear Calc 9.77, Est GFR (MDRD) Af Amer 10 L, Est GFR (MDRD) Non-Af 9 L, BUN/Creatinine Ratio 10.7, Glucose 106, Calcium 7.0 L 08/08/20 06:26: POC Glucose 107 08/08/20 11:33: POC Glucose 333 H Current Medications Acetaminophen (Acetaminophen 325 Mg Tablet) 650 mg PO Q6H PRN PRN PRN Reason: Pain Score 1-10/Temp > 100.7 F Last Admin: 08/08/20 10:12 Dose: 650 mg Documented by: Albuterol Sulfate (Albuterol 2.5 Mg/3 Ml Vial.Neb.) 2.5 mg INHALATION Q2H PRN PRN PRN Reason: Dyspnea, wheezing Amiodarone HCl (Amiodarone 200 Mg Tablet) 200 mg PO DINNER [facility] Last Admin: 08/07/20 17:00 Dose: 200 mg Documented by: Guaifenesin (Guaifenesin 10 Ml Udc (200mg/10ml)) 20 ml PO Q4H PRN PRN PRN Reason: COUGH Hydralazine HCl (Hydralazine 20 Mg/Ml Vial) 10 mg IV Q4H PRN PRN PRN Reason: SBP > 160 Ceftriaxone Sodium 2 gm/ (Sodium Chloride) 50 mls @ 100 mls/hr IV Q24 [facility] Last Admin: 08/08/20 10:00 Dose: 100 mls/hr Documented by: Dextrose/Sodium Chloride () 1,000 mls @ 75 mls/hr IV .[id number] [facility] Last Admin: 08/08/20 09:09 Dose: 75 mls/hr Documented by: Insulin Human Lispro (Insulin Lispro 100 Unit/Ml Insuln.Pen) 0 unit SC [facility]; Protocol Last Admin: 08/08/20 11:35 Dose: 3 u Documented by: Melatonin (Melatonin 3 Mg Tablet) 3 mg PO QHS PRN PRN PRN Reason: INSOMNIA Metoprolol Tartrate (Metoprolol Tartrate 50 Mg Tablet) 50 mg PO BID [facility] Last Admin: 08/08/20 10:01 Dose: 50 mg Documented by: Nitroglycerin (Nitroglycerin (Inpatient Use) 0.4 Mg Tab.Subl) 0.4 mg SUBLINGUAL Q5M PRN PRN Reason: CARDIAC/CHEST PAIN Ondansetron HCl (Ondansetron 4 Mg/2 Ml Vial) 4 mg IV Q8H PRN PRN PRN Reason: NAUSEA/VOMITING Pantoprazole Sodium (Pantoprazole Sodium 20 Mg Tablet) 20 mg PO DAILY [facility] Last Admin: 08/08/20 10:01 Dose: 20 mg Documented by: Pravastatin Sodium (Pravastatin 20 Mg Tablet) 20 mg PO QHS [facility] Last Admin: 08/07/20 21:55 Dose: 20 mg Documented by: Prochlorperazine Edisylate (Prochlorperazine 10 Mg/2 Ml Vial) 5 mg IV Q4H PRN PRN PRN Reason: Breakthrough nausea/vomiting Psyllium Hydrophilic Mucilloid (Psyllium 1 Packet) 1 packet PO DAILY PRN PRN PRN Reason: Constipation Senna/Docusate Sodium (Senna/Docusate Sodium 1 Tablet) 2 tablet PO BID PRN PRN PRN Reason: Constipation Sodium Bicarbonate (Sodium Bicarbonate 650 Mg Tablet) 1,300 mg PO 4X/DAY [facility] Last Admin: 08/08/20 10:02 Dose: 1,300 mg Documented by: Sodium Chloride (0.9% Saline Lock 10 Ml Syringe) 10 - 40 ml IV UD PRN PRN Reason: SALINE FLUSH Tamsulosin HCl (Tamsulosin Hcl 0.4 Mg Capsule) 0.4 mg PO DAILY [facility] Last Admin: 08/08/20 10:01 Dose: 0.4 mg Documented by: Assessment/Plan All Active Problems (Last Reviewed 01/22/20 @ 11:08 by Brittani Peoples) Acute renal injury (Acute) Anemia (Acute) SOB (shortness of breath) (Acute) Acute renal injury (Acute) Acute bacterial prostatitis (Resolved) Bacteremia due to Gram-negative bacteria (Resolved) Biloma following surgery (Resolved) Gangrene of gallbladder (Resolved) Hypoalbuminemia (Resolved) Hypokalemia (Resolved) Hypomagnesemia (Resolved) Severe sepsis (Resolved) Thrombocytopenia (Resolved) 74-year-old male with anemia, acute kidney injury 1. Patient did have a recent colonoscopy this summer with Dr. Terrazas per patient had 2 polyps otherwise negative. Patient states he has bowel movements daily denies any blood black or red stools had 2 bowel movements yesterday. Requesting the EGD as patient had one years ago with the anemia as well as patient states over the past 5 years he has had a weight loss some was intentional but some is also not intentional. Patient states over the last 6 months his weight has been stable. But he has been having some nausea which brought him into the ER. Sure if the nausea is due to his acute kidney injury. Discussed with patient that we could proceed with an EGD but this would not need to be urgent and would not hold up his discharge from the hospital. We will have him follow-up as an outpatient for the EGD. Would hold off on colonoscopy at this time as he has had one recently we will plan to reviewed the report which patient has already signed consent to obtain. I have discussed the above with the patient. I have offered the patient EGD for evaluation. I have explained the risks/benefits of the procedure and described the procedure. I have discussed the risks with the patient, including but not limited to: infection, bleeding, perforation of the GI tract requiring emergency surgery, inability to complete the procedure, injury to any internal organs, complications of anesthesia, etc. - the patient understands and agrees to proceed. I have answered all the patient's questions to the patient's satisfaction and the patient has no further questions. Discussed with Dr. Eduard Mcleod M.D. Pager: [phone] [facility] [address] [place] [address], Outpatient [place], [address] [place] [address] Office: [phone] Inpatient E&M: 09113 Init Hosp L2
[2020-08-08 13:24] LABS: Anti-Glomerular Basement Memb 3 units (0-20)
--- NOTE | 2020-08-08 14:49 | PN.RENAL_ITS ---
Patient Problems: Active and Suspected Problems (Last Reviewed 01/22/20 @ 11:08 by Brittani Peoples) Acute renal injury (Acute) Anemia (Acute) Subjective: no sob/cp/n/v no c/o - Physical Exam Vitals/I&O's: Vital Signs Temp Pulse Resp BP Pulse Ox 99.1 F 72 16 111/52 L 99 08/08/20 13:58 08/08/20 13:58 08/08/20 13:58 08/08/20 13:58 08/08/20 13:58 Oxygen Delivery Method Room Air Weight: 72.631 kg Body Mass Index (BMI) 21.7 Finger Stick Blood Glucose 161 Intake and Output for Last 24 Hours 08/06/20 08/07/20 08/08/20 23:59 23:59 23:59 Intake Total 5287.5 / 5287.5 2047.50 / 2047.50 1030 / 1030 Output Total 1050 / 1050 2075 / 2075 850 / 850 Balance 4237.5 / 4237.5 -27.50 / -27.50 180 / 180 General: Alert, Cooperative HEENT: Atraumatic, Normocephalic Oral: Moist Mucosa Neck: Supple Lungs: Clear to auscultation, Normal air movement Cardiovascular: Normal S1, Normal S2 Abdomen: Bowel Sounds Present, Soft, Non Tender Microbiology Past 72 Hours 08/06/20 07:41 Stool Stool Occult Blood (SKYLER) - Final Occult Blood Positive Laboratory Results 08/06/20 13:54: Glomerular Base Memb Ab 3, Complement C3 80 L, Complement C4 13 08/06/20 13:54: RPR NONREACTIVE 08/06/20 13:54: Hepatitis A IgM Ab Negative, Hep Bs Antigen Negative, Hep B Core IgM Ab Negative, Hepatitis C Ab (EIA) <0.1 08/07/20 15:30: Ur Total Protein 24 Hr Pending, Urine Total Protein Pending, Urine Albumin Pending, U Wjnkg-8-Xampvcxt Pending, U Wcojy-6-Rcywwqsr Pending, U Beta Globulin Pending, U Gamma Globulin Pending 08/07/20 15:30: Ur Collection Duration 24.0, Urine Total Volume 2.80, Urine Creatinine 23.80, Ur Creatinine 24 Hour 0.67 L 08/07/20 15:30: Urine Collection Time 24.0, Timed Urine Volume 2825, Ur Total Protein 24 Hr 356.0 H, Urine Total Protein 12.6 H 08/07/20 16:55: POC Glucose 198 H 08/07/20 21:52: POC Glucose 257 H 08/08/20 05:50: WBC 6.8, RBC 2.44 L, Hgb 7.9 L, Hct 23.5 L, MCV 96.3 H, MCH 32.4 H, MCHC 33.6, RDW Std Deviation 53.5 H, RDW Coeff of Dano 15.2 H, Plt Count 106 L , MPV 12.0 08/08/20 05:50: Sodium 145, Potassium 4.5, Chloride 118 H, Carbon Dioxide 16.0 L , Anion Gap 11, BUN 72 H, Creatinine 6.71 H, Estim Creat Clear Calc 9.77, Est GFR (MDRD) Af Amer 10 L, Est GFR (MDRD) Non-Af 9 L, BUN/Creatinine Ratio 10.7, Glucose 106, Calcium 7.0 L 08/08/20 06:26: POC Glucose 107 08/08/20 11:33: POC Glucose 333 H Current Medications Acetaminophen (Acetaminophen 325 Mg Tablet) 650 mg PO Q6H PRN PRN PRN Reason: Pain Score 1-10/Temp > 100.7 F Last Admin: 08/08/20 10:12 Dose: 650 mg Documented by: Albuterol Sulfate (Albuterol 2.5 Mg/3 Ml Vial.Neb.) 2.5 mg INHALATION Q2H PRN PRN PRN Reason: Dyspnea, wheezing Amiodarone HCl (Amiodarone 200 Mg Tablet) 200 mg PO DINNER [facility] Last Admin: 08/07/20 17:00 Dose: 200 mg Documented by: Guaifenesin (Guaifenesin 10 Ml Udc (200mg/10ml)) 20 ml PO Q4H PRN PRN PRN Reason: COUGH Hydralazine HCl (Hydralazine 20 Mg/Ml Vial) 10 mg IV Q4H PRN PRN PRN Reason: SBP > 160 Ceftriaxone Sodium 2 gm/ (Sodium Chloride) 50 mls @ 100 mls/hr IV Q24 [facility] Last Infusion: 08/08/20 10:30 Dose: Infused Documented by: Dextrose/Sodium Chloride () 1,000 mls @ 75 mls/hr IV .[id number] [facility] Last Admin: 08/08/20 09:09 Dose: 75 mls/hr Documented by: Insulin Human Lispro (Insulin Lispro 100 Unit/Ml Insuln.Pen) 0 unit SC [facility]; Protocol Last Admin: 08/08/20 11:35 Dose: 3 u Documented by: Melatonin (Melatonin 3 Mg Tablet) 3 mg PO QHS PRN PRN PRN Reason: INSOMNIA Metoprolol Tartrate (Metoprolol Tartrate 50 Mg Tablet) 50 mg PO BID [facility] Last Admin: 08/08/20 10:01 Dose: 50 mg Documented by: Nitroglycerin (Nitroglycerin (Inpatient Use) 0.4 Mg Tab.Subl) 0.4 mg SUBLINGUAL Q5M PRN PRN Reason: CARDIAC/CHEST PAIN Ondansetron HCl (Ondansetron 4 Mg/2 Ml Vial) 4 mg IV Q8H PRN PRN PRN Reason: NAUSEA/VOMITING Pantoprazole Sodium (Pantoprazole Sodium 20 Mg Tablet) 20 mg PO DAILY [facility] Last Admin: 08/08/20 10:01 Dose: 20 mg Documented by: Pravastatin Sodium (Pravastatin 20 Mg Tablet) 20 mg PO QHS [facility] Last Admin: 08/07/20 21:55 Dose: 20 mg Documented by: Prochlorperazine Edisylate (Prochlorperazine 10 Mg/2 Ml Vial) 5 mg IV Q4H PRN PRN PRN Reason: Breakthrough nausea/vomiting Psyllium Hydrophilic Mucilloid (Psyllium 1 Packet) 1 packet PO DAILY PRN PRN PRN Reason: Constipation Senna/Docusate Sodium (Senna/Docusate Sodium 1 Tablet) 2 tablet PO BID PRN PRN PRN Reason: Constipation Sodium Bicarbonate (Sodium Bicarbonate 650 Mg Tablet) 1,300 mg PO 4X/DAY [facility] Last Admin: 08/08/20 14:03 Dose: 1,300 mg Documented by: Sodium Chloride (0.9% Saline Lock 10 Ml Syringe) 10 - 40 ml IV UD PRN PRN Reason: SALINE FLUSH Tamsulosin HCl (Tamsulosin Hcl 0.4 Mg Capsule) 0.4 mg PO DAILY [facility] Last Admin: 08/08/20 10:01 Dose: 0.4 mg Documented by: Medical Necessity - Tobacco Use Smoking Status: Never smoker Tobacco Use: Non-smoker Assessment/Plan All Active Problems (Last Reviewed 01/22/20 @ 11:08 by Brittani Peoples) Acute renal injury (Acute) Anemia (Acute) SOB (shortness of breath) (Acute) Acute renal injury (Acute) Acute bacterial prostatitis (Resolved) Bacteremia due to Gram-negative bacteria (Resolved) Biloma following surgery (Resolved) Gangrene of gallbladder (Resolved) Hypoalbuminemia (Resolved) Hypokalemia (Resolved) Hypomagnesemia (Resolved) Severe sepsis (Resolved) Thrombocytopenia (Resolved) JAKOB?possible dense ATN vs AIN but at this time etiology unclear Hyperkalemia?improving Metabolic acidosis-NAG Proteinuria 356 mg per 24 hour collection Nephrolithiasis Renal cyst Anemia Diabetes mellitus Sodium is 145 so agree with continuing hypotonic fluids for now. Continue p.o. bicarb Follow-up serologies so far just minimally low C3 noted and mild proteinuria on 24 hour collection agree with holding losartan reviewed Doppler renal arteries Major risks and benefits of renal biopsy discussed with the patient again today but he declines renal biopsy. xarelto last dose on 08/06 bp ok D/w patient that if no improvement in renal function will need RIG OPERATOR Avoid nephrotoxins The patient will like a second opinion so I called dr. Suh renal on consult. Will sign off. Please call with questions or concerns.
--- NOTE | 2020-08-08 15:00 | NURSING ---
DR. DUMONT ASKED FOR DR. RUST , [facility], TO BE CONSULTED FOR A SECOND OPINION BY PT. DR. RUST IS OUT SICK AND UNABLE TO SEE PT. DR. DUMONT INFORMED OF CIRCUMSTANCES AND STATED HE WOULD BE IN TO SEE PT TOMORROW.
[2020-08-08 16:09] LABS: ANTINUCLEAR ANTIBODIES DIRECT Positive (Negative); Anti-Centromere B Ab 0.2 AI (0.0-0.9); Anti-Chromatin 0.3 AI (0.0-0.9); Anti-Jo <0.2 AI (0.0-0.9); Anti-Scleroderma-70 AB <0.2 AI (0.0-0.9); RNP Ab <0.2 AI (0.0-0.9); SJOGREN'S Anti-SS-A test < 0.2 AI (0.0-0.9); SJOGREN'S Anti-SS-B test < 0.2 AI (0.0-0.9); Smith Ab <0.2 AI (0.0-0.9)
[2020-08-08] MEDS: Amiodarone 200 MG Tablet PO (16:55)
[2020-08-08 17:05] LABS: Bedside Glucose 257 mg/dL (70-110)
[2020-08-08 20:29] LABS: Anti-dsDNA Ab 15 IU/mL (0-9)
[2020-08-08] MEDS: Pravastatin 20 MG Tablet PO (22:23)
[2020-08-08 22:56] LABS: Bedside Glucose 189 mg/dL (70-110)
[2020-08-09] VITALS (10 sets, daily range): BP systolic 108–149; BP diastolic 48–67; PULSE 66–88; RESP 16–18; TEMP 36.7–36.8; O2SAT 97–100
[2020-08-09] MEDS: Insulin Lispro 100 UNIT/ML INSULN.PEN SC ×4 (06:42→22:10)
[2020-08-09 06:50] LABS: Bedside Glucose 176 mg/dL (70-110)
[2020-08-09 07:13] LABS: Hemoglobin 7.5 g/dL (13.0-16.5); Mean Corp Hgb Conc 32.6 g/dL (32-36); Mean Corpuscular Hgb 31.5 pg (27.0-32.0); Mean Corpuscular Volume 96.6 fL (80-94); Mean Platelet Vol. 12.4 fl (6.2-12.0); Platelet Count 105 K/mm3 (150-450); RBC Distribution Width CV 15.1 % (11.6-14.6); RBC Distribution Width SD 53.1 fl (35.1-43.9); Red Blood Count 2.38 M/mm3 (4.6-6.2); White Blood Count 6.2 K/mm3 (4.4-11.0)
--- NOTE | 2020-08-09 07:15 | NURSING ---
This user did not complete the unit of blood. Just documenting to complete transfusion on the TAR.
[2020-08-09 07:44] LABS: Anion Gap 9 (5-15); BUN 72 mg/dL (7-18); BUN/Creat Ratio 10.4 RATIO (10-20); Chloride 118 mmol/L (98-107); Creatinine, Serum 6.93 mg/dL (0.70-1.30); EST Glomerular Filtration Rate 8 mL/min (>60); Est Glom Filt Rate - Afr Amer 10 mL/min (>60); Estimated Creatinine Clearance 9.51 ml/min; Glucose 155 mg/dL (74-106); Sodium Level 145 mmol/L (136-145)
[2020-08-09] MEDS: Acetaminophen 325 MG Tablet 650 MG PO ×2 (08:29→22:10)
[2020-08-09] MEDS: Metoprolol Tartrate 50 MG Tablet PO ×2 (08:30→22:13)
[2020-08-09] MEDS: Pantoprazole Sodium 20 MG Tablet PO (08:30)
[2020-08-09] MEDS: Tamsulosin HCl 0.4 MG Capsule PO (08:30)
[2020-08-09] MEDS: Sodium Bicarbonate 650 MG Tablet 1300 MG PO ×4 (08:30→22:10)
--- NOTE | 2020-08-09 08:42 | PN_ITS ---
Patient Problems: Active and Suspected Problems (Last Reviewed 01/22/20 @ 11:08 by Brittani Peoples) Acute renal injury (Acute) Anemia (Acute) Reason for Visit: Acute renal failure Severe anemia Subjective: 08/09/2020; patient seen kidney function continues to worsen. Hemoglobin down to 7.5. Patient was seen in consultation by nephrology recommended for patient to undergo renal biopsy on 08/12/2020. Patient will be kept off Eliquis and kept in the hospital the meantime whilst monitoring his kidney function Objective: GENERAL: cooperative HEENT: Atraumatic; EYES; Anicteric, Normal Conjunctiva NECK; supple, normal thyroid, RESPIRATORY: Diminished to auscultation CARDIOVASCULAR: Regular S1 S2, GI: soft, normoactive bowel sounds, : No Renal angle tenderness; EXTREMITIES: No edema, no clubbing, MUSCULOSKELETAL: no muscle waisting NEURO: Awake; no lateralizing signs. SKIN: No Rash PSYCH; Flat affect Vitals/I&O's: Vital Signs Temp Pulse Resp BP Pulse Ox 98.3 F 70 18 108/48 L 97 08/09/20 02:25 08/09/20 08:30 08/09/20 02:25 08/09/20 02:25 08/09/20 02:25 Oxygen Delivery Method Room Air Weight: 73 kg Body Mass Index (BMI) 21.7 Finger Stick Blood Glucose 161 Intake and Output for Last 24 Hours 08/07/20 08/08/20 08/09/20 23:59 23:59 23:59 Intake Total 2447.50 / 2447.50 2029 / 2029 Output Total 2074 / 5 1675 / 1675 950 / 950 Balance 372.50 / 372.50 355 / 355 -950 / -950 Microbiology Past 72 Hours 08/08/20 16:25 Stool Stool Occult Blood (SKYLER) - Final 08/06/20 07:41 Stool Stool Occult Blood (SKYLER) - Final Occult Blood Positive Laboratory Results 08/06/20 13:54: JOLANTA Screen Positive H, JESU-1 Antibody <0.2, SS-A/Ro IgG Antibody < 0.2, SS-B/La IgG Antibody < 0.2, Sm (Rodriguez) Antibody <0.2, DIE CASTING MACHINE OPERATOR Antibody <0.2, Scl-70 Scleroderma Ab <0.2, Double Strand DNA Ab 15 H, Centromere B Antibody 0.2 08/06/20 13:54: Glomerular Base Memb Ab 3, Complement C3 80 L, Complement C4 13 08/06/20 13:54: Hepatitis A IgM Ab Negative, Hep Bs Antigen Negative, Hep B Core IgM Ab Negative, Hepatitis C Ab (EIA) <0.1 08/07/20 08:40: Crossmatch See Detail 08/08/20 11:33: POC Glucose 333 H 08/08/20 16:53: POC Glucose 257 H 08/08/20 22:26: POC Glucose 189 H 08/09/20 06:38: WBC 6.2, RBC 2.38 L, Hgb 7.5 L, Hct 23.0 L, MCV 96.6 H, MCH 31.5, MCHC 32.6, RDW Std Deviation 53.1 H, RDW Coeff of Dano 15.1 H, Plt Count 105 L, MPV 12.4 H 08/09/20 06:38: Sodium 145, Potassium 4.0, Chloride 118 H, Carbon Dioxide 18.0 L , Anion Gap 9, BUN 72 H, Creatinine 6.93 H, Estim Creat Clear Calc 9.51, Est GFR (MDRD) Af Amer 10 L, Est GFR (MDRD) Non-Af 8 L, BUN/Creatinine Ratio 10.4, Glucose 155 H, Calcium 7.0 L 08/09/20 06:41: POC Glucose 176 H Current Medications Acetaminophen (Acetaminophen 325 Mg Tablet) 650 mg PO Q6H PRN PRN PRN Reason: Pain Score 1-10/Temp > 100.7 F Last Admin: 08/09/20 08:29 Dose: 650 mg Documented by: Albuterol Sulfate (Albuterol 2.5 Mg/3 Ml Vial.Neb.) 2.5 mg INHALATION Q2H PRN PRN PRN Reason: Dyspnea, wheezing Amiodarone HCl (Amiodarone 200 Mg Tablet) 200 mg PO DINNER [facility] Last Admin: 08/08/20 16:55 Dose: 200 mg Documented by: Guaifenesin (Guaifenesin 10 Ml Udc (200mg/10ml)) 20 ml PO Q4H PRN PRN PRN Reason: COUGH Hydralazine HCl (Hydralazine 20 Mg/Ml Vial) 10 mg IV Q4H PRN PRN PRN Reason: SBP > 160 Ceftriaxone Sodium 2 gm/ (Sodium Chloride) 50 mls @ 100 mls/hr IV Q24 [facility] Last Infusion: 08/08/20 10:30 Dose: Infused Documented by: Dextrose/Sodium Chloride () 1,000 mls @ 75 mls/hr IV .[id number] [facility] Last Admin: 08/08/20 22:46 Dose: 75 mls/hr Documented by: Insulin Human Lispro (Insulin Lispro 100 Unit/Ml Insuln.Pen) 0 unit SC [facility]; Protocol Last Admin: 08/09/20 06:42 Dose: 1 u Documented by: Melatonin (Melatonin 3 Mg Tablet) 3 mg PO QHS PRN PRN PRN Reason: INSOMNIA Metoprolol Tartrate (Metoprolol Tartrate 50 Mg Tablet) 50 mg PO BID [facility] Last Admin: 08/09/20 08:30 Dose: 50 mg Documented by: Nitroglycerin (Nitroglycerin (Inpatient Use) 0.4 Mg Tab.Subl) 0.4 mg SUBLINGUAL Q5M PRN PRN Reason: CARDIAC/CHEST PAIN Ondansetron HCl (Ondansetron 4 Mg/2 Ml Vial) 4 mg IV Q8H PRN PRN PRN Reason: NAUSEA/VOMITING Pantoprazole Sodium (Pantoprazole Sodium 20 Mg Tablet) 20 mg PO DAILY [facility] Last Admin: 08/09/20 08:30 Dose: 20 mg Documented by: Pravastatin Sodium (Pravastatin 20 Mg Tablet) 20 mg PO QHS [facility] Last Admin: 08/08/20 22:23 Dose: 20 mg Documented by: Prochlorperazine Edisylate (Prochlorperazine 10 Mg/2 Ml Vial) 5 mg IV Q4H PRN PRN PRN Reason: Breakthrough nausea/vomiting Psyllium Hydrophilic Mucilloid (Psyllium 1 Packet) 1 packet PO DAILY PRN PRN PRN Reason: Constipation Senna/Docusate Sodium (Senna/Docusate Sodium 1 Tablet) 2 tablet PO BID PRN PRN PRN Reason: Constipation Sodium Bicarbonate (Sodium Bicarbonate 650 Mg Tablet) 1,300 mg PO 4X/DAY [facility] Last Admin: 08/09/20 08:30 Dose: 1,300 mg Documented by: Sodium Chloride (0.9% Saline Lock 10 Ml Syringe) 10 - 40 ml IV UD PRN PRN Reason: SALINE FLUSH Tamsulosin HCl (Tamsulosin Hcl 0.4 Mg Capsule) 0.4 mg PO DAILY [facility] Last Admin: 08/09/20 08:30 Dose: 0.4 mg Documented by: STROKE Vital Signs/Narrative: Vital Signs Pulse 08/09/20 08:30 70 Medical Necessity - Tobacco Use Smoking Status: Never smoker Tobacco Use: Non-smoker Assessment/Plan All Active Problems (Last Reviewed 01/22/20 @ 11:08 by Brittani Peoples) Acute renal injury (Acute) Anemia (Acute) SOB (shortness of breath) (Acute) Acute renal injury (Acute) Acute bacterial prostatitis (Resolved) Bacteremia due to Gram-negative bacteria (Resolved) Biloma following surgery (Resolved) Gangrene of gallbladder (Resolved) Hypoalbuminemia (Resolved) Hypokalemia (Resolved) Hypomagnesemia (Resolved) Severe sepsis (Resolved) Thrombocytopenia (Resolved) Patient is a 74-year-old male sent from PCPs office with abnormal labs. Found to have acute kidney injury with creatinine greater than 7. Patient had normal kidney function as of January 2020. 1. Acute kidney injury -The combination of dehydration as well as use of potential nephrotoxic medications. Suspected offending medications held started on IV fluid. Ordered renal ultrasound to rule out bladder outlet obstruction subsequent monitoring of kidney function with daily BMPs -08/07/2020; patient was seen in consultation by nephrology. Notes and recommendations reviewed -08/08/2020 no significant improvement in patient kidney function. - 08/09/2020; patient seen kidney function continues to worsen. Patient was seen in consultation by nephrology recommended for patient to undergo renal biopsy on 08/12/2020. Patient will be kept off Eliquis and kept in the hospital the meantime whilst monitoring his kidney function 2. Anemia - Secondary suspected to be secondary to anemia of chronic disorder, ordered iron studies. Patient was transfused 1 unit PRBC on 08/07/2020 with subsequent monitoring H&H and transfuse if patient becomes symptomatic or hemoglobin falls below 7. As part of his evaluation ordered iron studies and stool for guaiac -08/08/2020; patient states he had a negative colonoscopy in January. He has never had an EGD. He is to is guaiac positive. Plan is to consult general surgery for possible endoscopic evaluation - 08/08/2020. Hemoglobin up to 7.9 after being transfused with 1 unit PRBC. Consult was placed to general surgery for possible upper endoscopy given patient guaiac positive stools. Of note patient had a colonoscopy in [address] Terrazas found 3 polyps no malignancy. Did request for old records. ?08/09/2020 Hemoglobin down to 7.5.. Patient was also seen in consultation by Dr. Vazquez with general surgery plan is for patient to undergo outpatient upper EGD complete his work-up of anemia 3. Abnormal urinalysis ?Present on admission patient started on Rocephin 4. Diabetes mellitus type 2 Complications including hypoglycemia. Held patient oral agents placed on Accu- Cheks before meals and at bedtime with sliding scale coverage 5. Paroxysmal A. fib ?Rate controlled on amiodarone did continue also on systemic anticoagulation with rivaroxaban did continue -Lovenox have been held in view of patient significant anemia 6. History of wide-complex tachycardia -Is on amiodarone 7. Essential hypertension Patient is on losartan in view of impaired kidney function losartan was held please on hydralazine as needed for systolic blood pressure greater than 160 8. Dyslipidemia -Patient is on statin therapy, continued at home dose 9. GERD ?On PPI 10. BPH -On tamsulosin 10. DVT prophylaxis ~ xarelto -08/07/2020; Xarelto held Inpatient E&M: 63782 Subs Hosp L2
[2020-08-09 09:08] LABS: Albumin 2.6 g/dL (2.9-4.4); Alpha-1-Globulins 0.2 g/dL (0.0-0.4); Alpha-2-Globulins 0.7 g/dL (0.4-1.0); Cytoplasmic Ab (C-ANCA) <1:20 titer (Neg:<1:20); Gamma Globulin 0.8 g/dL (0.4-1.8); Immunoglobulin A 142 mg/dL (61-437); Immunoglobulin G 821 mg/dL (603-1613); Immunoglobulin M 53 mg/dL (15-143); PROEL- TOTAL PROTEIN 4.9 g/dL (6.0-8.5)
[2020-08-09] MEDS: Dext 5%-0.45% NS 1,000 ML 75 ML IV (11:27)
[2020-08-09 12:01] LABS: Bedside Glucose 291 mg/dL (70-110)
[2020-08-09 12:25] LABS: Perinuclear Ab (P-ANCA) <1:20 titer (Neg:<1:20)
--- NOTE | 2020-08-09 12:45 | NURSING ---
THIS RN TO PT'S BEDSIDE TO DISCUSS THE KIDNEY BIOPSY PROCEDURE AND TO ANSWER ANY QUESTIONS. PT VERBALIZED UNDERSTANDING AND APPRECIATIVE OF THE INFORMATION.
--- NOTE | 2020-08-09 14:58 | PN.RENAL_ITS ---
Patient Problems: Active and Suspected Problems (Last Reviewed 01/22/20 @ 11:08 by Brittani Peoples) Acute renal injury (Acute) Anemia (Acute) Subjective: anxiety no sob/cp/n/v - Physical Exam Vitals/I&O's: Vital Signs Temp Pulse Resp BP Pulse Ox 98.1 F 66 18 116/63 100 08/09/20 14:18 08/09/20 14:18 08/09/20 14:18 08/09/20 14:18 08/09/20 14:18 Oxygen Delivery Method Room Air Weight: 73 kg Body Mass Index (BMI) 21.7 Finger Stick Blood Glucose 161 Intake and Output for Last 24 Hours 08/07/20 08/08/20 08/09/20 23:59 23:59 23:59 Intake Total 2447.50 / 2447.50 2029 / 2030 1601.25 / 1601.25 Output Total 2074 / 2074 1675 / 1675 1750 / 1750 Balance 372.50 / 372.50 355 / 355 -148.75 / -148.75 General: Alert, Cooperative HEENT: Atraumatic, Normocephalic Neck: Supple Lungs: Clear to auscultation, Normal air movement Cardiovascular: Regular rate, Regular Rhythm, Normal S1, Normal S2 Abdomen: Bowel Sounds Present, Soft Extremities: No edema Microbiology Past 72 Hours 08/08/20 16:25 Stool Stool Occult Blood (SKYLER) - Final Laboratory Results 08/06/20 13:54: JOLANTA Screen Positive H, JESU-1 Antibody <0.2, SS-A/Ro IgG Antibody < 0.2, SS-B/La IgG Antibody < 0.2, Sm (Rodriguez) Antibody <0.2, MOULDER OPERATOR Antibody <0.2, Scl-70 Scleroderma Ab <0.2, Double Strand DNA Ab 15 H, Centromere B Antibody 0.2 08/06/20 13:54: Total Protein (PEP) 4.9 L, Globulin 2.3, IgG 821, IgA 142, IgM 53, Immunofixation Screen Comment H, Albumin (JOSE J) 2.6 L, Albumin/Globulin (JOSE J) 1.2, Gropn-1-Enhicegtk JOSE J 0.2, Jwonp-0-Yielvdbwi JOSE J 0.7, Beta-Globulins (JOSE J) 0.6 L, Gamma Globulins (JOSE J) 0.8, JOSE J M-Ventura , JOSE J Comments Comment, c-ANCA Antibody <1:20, Atypical p-ANCA <1:20, p-ANCA Antibody <1:20 08/07/20 08:40: Crossmatch See Detail 08/08/20 16:53: POC Glucose 257 H 08/08/20 22:26: POC Glucose 189 H 08/09/20 06:38: WBC 6.2, RBC 2.38 L, Hgb 7.5 L, Hct 23.0 L, MCV 96.6 H, MCH 31.5, MCHC 32.6, RDW Std Deviation 53.1 H, RDW Coeff of Dano 15.1 H, Plt Count 105 L, MPV 12.4 H 08/09/20 06:38: Sodium 145, Potassium 4.0, Chloride 118 H, Carbon Dioxide 18.0 L , Anion Gap 9, BUN 72 H, Creatinine 6.93 H, Estim Creat Clear Calc 9.51, Est GFR (MDRD) Af Amer 10 L, Est GFR (MDRD) Non-Af 8 L, BUN/Creatinine Ratio 10.4, Glucose 155 H, Calcium 7.0 L 08/09/20 06:41: POC Glucose 176 H 08/09/20 11:33: POC Glucose 291 H Current Medications Acetaminophen (Acetaminophen 325 Mg Tablet) 650 mg PO Q6H PRN PRN PRN Reason: Pain Score 1-10/Temp > 100.7 F Last Admin: 08/09/20 08:29 Dose: 650 mg Documented by: Albuterol Sulfate (Albuterol 2.5 Mg/3 Ml Vial.Neb.) 2.5 mg INHALATION Q2H PRN PRN PRN Reason: Dyspnea, wheezing Amiodarone HCl (Amiodarone 200 Mg Tablet) 200 mg PO DINNER [facility] Last Admin: 08/08/20 16:55 Dose: 200 mg Documented by: Guaifenesin (Guaifenesin 10 Ml Udc (200mg/10ml)) 20 ml PO Q4H PRN PRN PRN Reason: COUGH Hydralazine HCl (Hydralazine 20 Mg/Ml Vial) 10 mg IV Q4H PRN PRN PRN Reason: SBP > 160 Ceftriaxone Sodium 2 gm/ (Sodium Chloride) 50 mls @ 100 mls/hr IV Q24 [facility] Last Infusion: 08/09/20 11:57 Dose: Infused Documented by: Dextrose/Sodium Chloride () 1,000 mls @ 75 mls/hr IV .[id number] [facility] Last Admin: 08/09/20 11:27 Dose: 75 mls/hr Documented by: Insulin Human Lispro (Insulin Lispro 100 Unit/Ml Insuln.Pen) 0 unit SC [facility]; Protocol Last Admin: 08/09/20 11:36 Dose: 2 u Documented by: Melatonin (Melatonin 3 Mg Tablet) 3 mg PO QHS PRN PRN PRN Reason: INSOMNIA Metoprolol Tartrate (Metoprolol Tartrate 50 Mg Tablet) 50 mg PO BID [facility] Last Admin: 08/09/20 08:30 Dose: 50 mg Documented by: Nitroglycerin (Nitroglycerin (Inpatient Use) 0.4 Mg Tab.Subl) 0.4 mg SUBLINGUAL Q5M PRN PRN Reason: CARDIAC/CHEST PAIN Ondansetron HCl (Ondansetron 4 Mg/2 Ml Vial) 4 mg IV Q8H PRN PRN PRN Reason: NAUSEA/VOMITING Pantoprazole Sodium (Pantoprazole Sodium 20 Mg Tablet) 20 mg PO DAILY [facility] Last Admin: 08/09/20 08:30 Dose: 20 mg Documented by: Pravastatin Sodium (Pravastatin 20 Mg Tablet) 20 mg PO QHS [facility] Last Admin: 08/08/20 22:23 Dose: 20 mg Documented by: Prochlorperazine Edisylate (Prochlorperazine 10 Mg/2 Ml Vial) 5 mg IV Q4H PRN PRN PRN Reason: Breakthrough nausea/vomiting Psyllium Hydrophilic Mucilloid (Psyllium 1 Packet) 1 packet PO DAILY PRN PRN PRN Reason: Constipation Senna/Docusate Sodium (Senna/Docusate Sodium 1 Tablet) 2 tablet PO BID PRN PRN PRN Reason: Constipation Sodium Bicarbonate (Sodium Bicarbonate 650 Mg Tablet) 1,300 mg PO 4X/DAY [facility] Last Admin: 08/09/20 14:08 Dose: 1,300 mg Documented by: Sodium Chloride (0.9% Saline Lock 10 Ml Syringe) 10 - 40 ml IV UD PRN PRN Reason: SALINE FLUSH Tamsulosin HCl (Tamsulosin Hcl 0.4 Mg Capsule) 0.4 mg PO DAILY [facility] Last Admin: 08/09/20 08:30 Dose: 0.4 mg Documented by: Medical Necessity - Tobacco Use Smoking Status: Never smoker Tobacco Use: Non-smoker Assessment/Plan All Active Problems (Last Reviewed 01/22/20 @ 11:08 by Brittani Peoples) Acute renal injury (Acute) Anemia (Acute) SOB (shortness of breath) (Acute) Acute renal injury (Acute) Acute bacterial prostatitis (Resolved) Bacteremia due to Gram-negative bacteria (Resolved) Biloma following surgery (Resolved) Gangrene of gallbladder (Resolved) Hypoalbuminemia (Resolved) Hypokalemia (Resolved) Hypomagnesemia (Resolved) Severe sepsis (Resolved) Thrombocytopenia (Resolved) JAKOB?possible dense ATN vs AIN but at this time etiology unclear Hyperkalemia?resolved Metabolic acidosis-NAG MGUS JOLANTA positive Proteinuria 356 mg per 24 hour collection Nephrolithiasis Renal cyst Anemia Diabetes mellitus Sodium is 145 so agree with continuing hypotonic fluids for now. Continue p.o. bicarb Call hematology consult Dr. Mckeon per patient preference for MGUS agree with holding losartan Major risks and benefits of renal biopsy discussed with the patient again including but not limited to , kidney loss, bleeding with need for transfusion, damage to other organs. Today the patient agrees to proceed with renal biopsy on Wednesday. Per patient request will get cardiology Dr. Blas to see him today or Wednesday for management of anticoagulation post renal biopsy. Ideally would hold DOAC for 7 days post renal biopsy. xarelto last dose on 08/06 bp ok JOLANTA positive and antidouble-stranded DNA positive renal biopsy on Wednesday. Will need rheumatology outpatient consult scheduled upon discharge as inpatient rheumatology is not available. D/w patient that if no improvement in renal function will need ELEVATOR ADJUSTER. At this point he would like to wait for renal biopsy results before making a decision regarding ELEVATOR ADJUSTER. Avoid nephrotoxins
--- NOTE | 2020-08-09 15:54 | ONC.CON.INP2 ---
- Problem List (1) Acute renal injury Status: Acute (2) Monoclonal gammopathy Status: Acute Consult Referring Physician: Dr. Brower Subjective Chief Complaint: JAKOB History of Present Illness: HPI: The patient is a 74-year-old male with a past medical history significant for hypercholesterolemia, hypertension, coronary artery disease, paroxysmal atrial fibrillation (amiodarone and rivaroxaban), type 2 diabetes, chronic anemia and thrombocytopenia, GERD and BPH who presented to the emergency room on 08/05/2020 after being sent from his PCPs office for an approximate 6-month history of worsening fatigue, malaise, unintended weight loss and acute kidney injury. He was admitted and started on IV hydration. Renal ultrasound demonstrated normal appearance of the kidneys without evidence of hydroureter or hydronephrosis. Bladder was noted to be normal. Hemoglobin was 7.0 g/dL. He received 1 unit red blood cell transfusion. Mild thrombocytopenia now stable. Stools were heme positive. Iron studies suggestive of anemia of chronic disease. Renal function has not improved. Laboratory testing significant for IgG kappa monoclonal protein identified by immunofixation. Not quantifiable on electrophoresis. Serum light chain analysis and 24-hour urine collection to quantitate possible urine monoclonal protein not yet completed. He did not notice any decrease in urination over the previous 6 months. Had only been using Tylenol on occasion. Had not been using NSAIDs. 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) CAD in [place] artery (Chronic) Wide-complex tachycardia (Chronic) Pure hypercholesterolemia (Chronic) Essential hypertension (Chronic) Encounter for long-term current use of high risk medication (Chronic) Atherosclerotic heart disease of [place] coronary artery without angina pectoris (Chronic) CX 20-30% prox-mid stenosis, LAD 20-30% and 10-20% anterior trunk stenosis, OM1 20-30% tapering ostial stenosis, RCA 20% prox stenosis- per cath 08/14/08; LEFT MAIN: Mild luminal irregularities; LEFT ANTERIOR DESCENDING ARTERY: PROX LAD: Mild calcification, Mild luminal irregularities, eccentric: 10 - 25 % Stenosis; MID LAD: Mild luminal irregularities; CIRCUMFLEX ARTERY: Mild luminal irregularities; RIGHT CORONARY ARTERY: PROX RCA: Mild calcification, Mild luminal irregularities, eccentric: 10 - 25 % Stenosis MID RCA: Mild luminal irregularities; AORTIC ROOT: Angiographically normal per cath 05/16/19 Paroxysmal atrial fibrillation (Chronic) Gastroesophageal reflux disease (Chronic) Diabetes mellitus, type II (Chronic) Past Medical/Surgical History: Past Medical History - Most Recent Inpatient Visit Past Medical History Start: 08/05/20 16:04 Text: Status: Complete Freq: ONCE Protocol: Document 08/05/20 16:33 RENAY (Rec: 08/05/20 16:37 RENAY [id number]) BMI Required to complete PMH What is Patient's BMI 21.6 Neurologic Medical History Hx Stroke/TIA No Hx Dementia/Alzheimer's No Hx Parkinson's Disease No Hx Seizures No Hx Multiple Sclerosis No Hx Migraines No Cardiac Medical History VTE Present on Admission No Hx of Deep Vein Thrombosis/VTE/PE No Hx Hypertension Yes: ON MEDS. BP CONTROLLED Hx Chest Pain/Angina No Hx Heart Attack No Hx Cardiac Surgery/Stents/Etc. Yes: heart cath no stents Hx Heart Failure No Hx Pacemaker/AICD No Hx Irregular Heartbeat and/or Afib Yes: AFIB Hx Anticoagulant Therapy Yes: xarelto Query Text:(Coumadin, Aspirin, Plavix, Xarelto, etc.) Hx Pain in Legs when Walking/Leg Cramps No Respiratory Medical History Hx COPD No Hx Emphysema No Hx Smoking No Smoking Status Never smoker Hx Smoking Exposure No Hx Tobacco Use in last 12 months No Hx of Pipe Smoking No Hx Sleep Apnea No Do you snore loudly (louder than talking No or can be heard through closed doors)? Do you often feel tired/ fatigued/ No sleepy during daytime? Has anyone observed you stop breathing No during sleep? STOP Results Negative GI Medical History Hx Ulcer No: gerd Hx Hepatitis No Hx Cirrhosis No Hx GI Bleed No Hx Unplanned Weight Loss Yes Genitourinary Medical History Indwelling Catheter in Place on Arrival/ No Admission Hx Renal Disease No Hx Dialysis No Musculoskeletal History Hx Arthritis Yes Hx Rheumatoid Arthritis No Endocrine Medical History Hx Diabetes Yes: TYPE II Hx Thyroid Disease No Hematologic Medical History Hx of Blood Transfusion No Hx of Transfusion in last 3 Months No Ever experience any problems with No transfusion(s)? Hx of Preganancy in last 3 Months N/A Nurse Filling Out Transfusion & SGESSEL Questions: Date: 08/05/20 Time: 16:35 Psycho/Social Medical History Hx Depression No Hx Anxiety No Hx Behavior Disorder No Hx Alcohol Use No Hx Substance Use No Other Medical History Hx Blood Disorders Yes Hx Anemia Yes Hx Cancer No Hx Drug Resistant Organism No Wound/Pressure Injury Present on Arrival No /Admission Query Text:If yes, chart assessment in Shift/Clinical Findings Central Line/PICC/VAD Present on Arrival No /Admission Antibiotics within last 7 days? No Risk for Readmission Number of Risk Factors 5 At Risk for Readmission Patient is At Risk For Readmission Patient is eligible for Call Back Y Past Medical History (Last Reviewed 01/22/20 @ 11:08 by Brittani Peoples) SOB (shortness of breath) (Acute) Wide-complex tachycardia (Chronic) Pure hypercholesterolemia (Chronic) Essential hypertension (Chronic) Atherosclerotic heart disease of [place] coronary artery without angina pectoris (Chronic) Paroxysmal atrial fibrillation (Chronic) Diabetes mellitus, type II (Chronic) Body mass index (bmi) 29.0-29.9, adult (Acute) Chest pain (Acute) History of left heart catheterization (LHC) (Resolved ~05/16/19) CAD (coronary artery disease) (Inactive) Hyperlipidemia (Inactive) Hypertension (Inactive) Past Surgical History (Last Reviewed 01/22/20 @ 11:08 by Brittani Peoples) History of ERCP (Resolved) Hx laparoscopic cholecystectomy (Resolved) Maternal Family History: Family History (Last Reviewed 01/22/20 @ 11:08 by Brittani Peoples) Father CAD (coronary artery disease) Mother Alzheimers disease Sister Breast cancer Family History: Dementia Paternal Family History: Family History (Last Reviewed 01/22/20 @ 11:08 by Brittani Peoples) Father CAD (coronary artery disease) Mother Alzheimers disease Sister Breast cancer Family History: Cancer - Father with history of colon cancer., High Cholesterol, Heart Disease, Hypertension - Social History Lives: Spouse/ Significant Other Smoking Status: Never smoker Tobacco Use: Non-smoker Alcohol: None Drugs: None Allergies/Adverse Reactions: Allergy/AdvReac Type Severity Reaction Status Date / Time scopolamine AdvReac HALLUCINATI Verified 08/05/20 16:32 ONS SOME TYPE OF IV DYE FOR AdvReac backache Uncoded 08/05/20 16:32 ULTRA BRYCE Review of Systems Constitutional:: Reports: Fatigue Gastrointestinal:: Reports: - - Had times of loose stools over the last 6 months. Typically bowel movements were regular with normal caliber stool but every few days he would have a day or 2 where the bowels would move 3-4 times a day with loose stools. He did not observe any signs of GI bleeding such as melena and/or hematochez Neurological:: Reports: Numbness, - - Chronic longstanding numbness of the toes only. Review of Systems Comments: No unusual bleeding. No unexplained bruising. Easy bruising of the dorsal surfaces of the hands and forearms. Vital Signs Temperature 98.1 F 08/09/20 14:18 Temperature Source Oral 08/09/20 14:18 Pulse Rate 66 08/09/20 14:18 Pulse Strength Normal (2+) 08/06/20 20:35 Respiratory Rate 18 08/09/20 14:18 Respiratory Effort Non-Labored 08/07/20 20:11 Respiratory Depth Normal 08/07/20 20:11 Respiratory Pattern Normal 08/07/20 20:11 Blood Pressure 116/63 08/09/20 14:18 Blood Pressure Mean 80 08/09/20 14:18 Blood Pressure Source Monitor 08/09/20 14:18 Blood Pressure Position Semi-Fowlers 08/09/20 14:18 Blood Pressure Location Left Arm 08/09/20 14:18 Pulse Ox 100 08/09/20 14:18 Oxygen Delivery Method Room Air 08/09/20 14:18 - Physical Exam General: Alert, Oriented x3 Oropharynx:: - - No glossomegaly Cardiac:: Regular rhythm Lungs: Normal air movement Abdomen:: Soft, Non-tender Lymphatics:: - - No cervical or supraclavicular adenopathy. Laboratory Data: Microbiology 08/08/20 16:25 Stool Occult Blood (SKYLER) - Final Stool Laboratory Tests 08/09/20 08/09/20 08/09/20 Range/Units 11:33 06:41 06:38 WBC (4.4-11.0) K/mm3 RBC (4.6-6.2) M/mm3 Hgb (13.0-16.5) g/dL Hct (40-54) % MCV (80-94) fL MCH (27.0-32.0) pg MCHC (32-36) g/dL RDW Std Deviation (35.1-43.9) fl RDW Coeff of Dano (11.6-14.6) % Plt Count (150-450) K/mm3 MPV (6.2-12.0) fl Sodium 145 (136-145) mmol/L Potassium 4.0 (3.5-5.1) mmol/L Chloride 118 H (98-107) mmol/L Carbon Dioxide 18.0 L (21.0-32.0) mmol/L Anion Gap 9 (5-15) BUN 72 H (7-18) mg/dL Creatinine 6.93 H (0.70-1.30) mg/dL Estim Creat Clear Calc 9.51 ml/min Est GFR (MDRD) Af Amer 10 L (>60) mL/min Est GFR (MDRD) Non-Af 8 L (>60) mL/min BUN/Creatinine Ratio 10.4 (10-20) RATIO Glucose 155 H (74-106) mg/dL Calcium 7.0 L (8.5-10.1) mg/dL Total Protein (PEP) (6.0-8.5) g/dL Globulin (2.2-3.9) g/dL IgG (603-1613) mg/dL IgA (61-437) mg/dL IgM (15-143) mg/dL Immunofixation Screen (.) Albumin (JOSE J) (2.9-4.4) g/dL Albumin/Globulin (JOSE J) (0.7-1.7) Iznzq-7-Nmkjliqnm JOSE J (0.0-0.4) g/dL Nkfem-8-Mgsvjwpko JOSE J (0.4-1.0) g/dL Beta-Globulins (JOSE J) (0.7-1.3) g/dL Gamma Globulins (JOSE J) (0.4-1.8) g/dL JOSE J M-[place] g/dL JOSE J Comments (.) JOLANTA Screen (Negative) c-ANCA Antibody (Neg:<1:20) titer Atypical p-ANCA (Neg:<1:20) titer p-ANCA Antibody (Neg:<1:20) titer JESU-1 Antibody (0.0-0.9) AI SS-A/Ro IgG Antibody (0.0-0.9) AI SS-B/La IgG Antibody (0.0-0.9) AI Sm (Rodriguez) Antibody (0.0-0.9) AI SECURITY AND COMPLIANCE PROJECT MANAGER Antibody (0.0-0.9) AI Scl-70 Scleroderma Ab (0.0-0.9) AI Double Strand DNA Ab (0-9) IU/mL Centromere B Antibody (0.0-0.9) AI POC Glucose 291 H 176 H (70-110) mg/dL Crossmatch 08/09/20 08/08/20 08/08/20 Range/Units 06:38 22:26 16:53 WBC 6.2 (4.4-11.0) K/mm3 RBC 2.38 L (4.6-6.2) M/mm3 Hgb 7.5 L (13.0-16.5) g/dL Hct 23.0 L (40-54) % MCV 96.6 H (80-94) fL MCH 31.5 (27.0-32.0) pg MCHC 32.6 (32-36) g/dL RDW Std Deviation 53.1 H (35.1-43.9) fl RDW Coeff of Dano 15.1 H (11.6-14.6) % Plt Count 105 L (150-450) K/mm3 MPV 12.4 H (6.2-12.0) fl Sodium (136-145) mmol/L Potassium (3.5-5.1) mmol/L Chloride (98-107) mmol/L Carbon Dioxide (21.0-32.0) mmol/L Anion Gap (5-15) BUN (7-18) mg/dL Creatinine (0.70-1.30) mg/dL Estim Creat Clear Calc ml/min Est GFR (MDRD) Af Amer (>60) mL/min Est GFR (MDRD) Non-Af (>60) mL/min BUN/Creatinine Ratio (10-20) RATIO Glucose (74-106) mg/dL Calcium (8.5-10.1) mg/dL Total Protein (PEP) (6.0-8.5) g/dL Globulin (2.2-3.9) g/dL IgG (603-1613) mg/dL IgA (61-437) mg/dL IgM (15-143) mg/dL Immunofixation Screen (.) Albumin (JOSE J) (2.9-4.4) g/dL Albumin/Globulin (JOSE J) (0.7-1.7) Qsywi-4-Oeshxwnad JOSE J (0.0-0.4) g/dL Wzgca-3-Lvqvigwja JOSE J (0.4-1.0) g/dL Beta-Globulins (JOSE J) (0.7-1.3) g/dL Gamma Globulins (JOSE J) (0.4-1.8) g/dL JOSE J M-[place] g/dL JOSE J Comments (.) JOLANTA Screen (Negative) c-ANCA Antibody (Neg:<1:20) titer Atypical p-ANCA (Neg:<1:20) titer p-ANCA Antibody (Neg:<1:20) titer JESU-1 Antibody (0.0-0.9) AI SS-A/Ro IgG Antibody (0.0-0.9) AI SS-B/La IgG Antibody (0.0-0.9) AI Sm (Rodriguez) Antibody (0.0-0.9) AI SECURITY AND COMPLIANCE PROJECT MANAGER Antibody (0.0-0.9) AI Scl-70 Scleroderma Ab (0.0-0.9) AI Double Strand DNA Ab (0-9) IU/mL Centromere B Antibody (0.0-0.9) AI POC Glucose 189 H 257 H (70-110) mg/dL Crossmatch 08/07/20 08/06/20 08/06/20 Range/Units 08:40 13:54 13:54 WBC (4.4-11.0) K/mm3 RBC (4.6-6.2) M/mm3 Hgb (13.0-16.5) g/dL Hct (40-54) % MCV (80-94) fL MCH (27.0-32.0) pg MCHC (32-36) g/dL RDW Std Deviation (35.1-43.9) fl RDW Coeff of Dano (11.6-14.6) % Plt Count (150-450) K/mm3 MPV (6.2-12.0) fl Sodium (136-145) mmol/L Potassium (3.5-5.1) mmol/L Chloride (98-107) mmol/L Carbon Dioxide (21.0-32.0) mmol/L Anion Gap (5-15) BUN (7-18) mg/dL Creatinine (0.70-1.30) mg/dL Estim Creat Clear Calc ml/min Est GFR (MDRD) Af Amer (>60) mL/min Est GFR (MDRD) Non-Af (>60) mL/min BUN/Creatinine Ratio (10-20) RATIO Glucose (74-106) mg/dL Calcium (8.5-10.1) mg/dL Total Protein (PEP) 4.9 L (6.0-8.5) g/dL Globulin 2.3 (2.2-3.9) g/dL IgG 821 (603-1613) mg/dL IgA 142 (61-437) mg/dL IgM 53 (15-143) mg/dL Immunofixation Screen Comment H (.) Albumin (JOSE J) 2.6 L (2.9-4.4) g/dL Albumin/Globulin (JOSE J) 1.2 (0.7-1.7) Bnpdr-3-Pglqjenju JOSE J 0.2 (0.0-0.4) g/dL Puexx-2-Nyemgabei JOSE J 0.7 (0.4-1.0) g/dL Beta-Globulins (JOSE J) 0.6 L (0.7-1.3) g/dL Gamma Globulins (JOSE J) 0.8 (0.4-1.8) g/dL JOSE J M-[place] g/dL JOSE J Comments Comment (.) JOLANTA Screen Positive H (Negative) c-ANCA Antibody <1:20 (Neg:<1:20) titer Atypical p-ANCA <1:20 (Neg:<1:20) titer p-ANCA Antibody <1:20 (Neg:<1:20) titer JESU-1 Antibody <0.2 (0.0-0.9) AI SS-A/Ro IgG Antibody < 0.2 (0.0-0.9) AI SS-B/La IgG Antibody < 0.2 (0.0-0.9) AI Sm (Rodriguez) Antibody <0.2 (0.0-0.9) AI SECURITY AND COMPLIANCE PROJECT MANAGER Antibody <0.2 (0.0-0.9) AI Scl-70 Scleroderma Ab <0.2 (0.0-0.9) AI Double Strand DNA Ab 15 H (0-9) IU/mL Centromere B Antibody 0.2 (0.0-0.9) AI POC Glucose (70-110) mg/dL Crossmatch See Detail Diagnostic Data: Diagnostic Data Abdomen/Pelvis CT 08/05/20 13:54 IMPRESSION: 2 punctate nonobstructive calculi in the lower pole. The right kidney Status post cholecystectomy. Prostatic enlargement with indentation of the bladder base. Electronically Signed: Stanton Eastondarrelmateusz, at 15:03 EST , Service support , Renal Ultrasound 08/06/20 07:53 IMPRESSION: Normal ultrasound of the kidneys and urinary bladder. Electronically Signed: Stanton Eastondanny, at 13:59 EST , Service support , Assessment and Plan Impression: -Nonoliguric renal insufficiency. -Serum monoclonal IgG kappa chain evident only on immunofixation and nonquantifiable on electrophoresis. -Anemia. This has been chronic but worse on recent admission. Iron indices suggest anemia of chronic disease. -Mild thrombocytopenia longstanding also worse on present admission. Plan: -Serum light chain analysis. -24-hour urine collection for identification and quantification of possible monoclonal protein. -Bone survey. -Check reticulocyte count. -We will see if he can be added on for CT-guided bone marrow biopsy on Wednesday since he will be off Xarelto for the renal biopsy. All the above discussed in detail with the patient and his . Total time at bedside greater than 45 minutes. Medications: Prescriptions This Visit Medication Instructions Recorded Amiodarone HCl 200 mg PO DAILY 08/05/20 Primary Care Provider: Dr. Guanakito Quarels MD Referring Provider:
[2020-08-09] MEDS: Amiodarone 200 MG Tablet PO (17:47)
[2020-08-09 18:11] LABS: Immature Platelet Fraction 6.4 % (1.0-7.9); Platelet Count 95 K/mm3 (150-450); RET-HE 35.7 pg (30-35); Reticulocyte Count 0.95 % (0.5-1.5)
[2020-08-09 18:16] LABS: LDH 159 U/L (87-241)
--- NOTE | 2020-08-09 18:37 | PCM.CONS.C ---
Problem List (1) Atherosclerotic heart disease of [place] coronary artery without angina pectoris Status: Chronic Qualifiers: [place] vs. transplanted heart: [place] heart Qualified Code(s): I25.10 - Atherosclerotic heart disease of [place] coronary artery without angina pectoris Comment: CX 20-30% prox-mid stenosis, LAD 20-30% and 10-20% anterior trunk stenosis, OM1 20-30% tapering ostial stenosis, RCA 20% prox stenosis- per cath 08/14/08; LEFT MAIN: Mild luminal irregularities; LEFT ANTERIOR DESCENDING ARTERY: PROX LAD: Mild calcification, Mild luminal irregularities, eccentric: 10 - 25 % Stenosis; MID LAD: Mild luminal irregularities; CIRCUMFLEX ARTERY: Mild luminal irregularities; RIGHT CORONARY ARTERY: PROX RCA: Mild calcification, Mild luminal irregularities, eccentric: 10 - 25 % Stenosis MID RCA: Mild luminal irregularities; AORTIC ROOT: Angiographically normal per cath 05/16/19 (2) Pure hypercholesterolemia Status: Chronic (3) Essential hypertension Status: Chronic (4) Paroxysmal atrial fibrillation Status: Chronic (5) Acute renal injury Status: Acute (6) Anemia Status: Acute Qualifiers: Anemia type: unspecified type Qualified Code(s): D64.9 - Anemia, unspecified (7) Monoclonal gammopathy Status: Acute Reason for Consult Date of Consultation: 08/09/20 History of Present Illness: The patient is a 74 year [id number] white male with history of CAD, paroxysmal atrial fibrillation, hyperlipidemia, hypertension, who is undergoing evaluation for acute renal insufficiency, anemia, and concerns of an monoclonal gammopathy. He presented to the [facility] ED, per request by his PCP office, based upon a combination of progressive fatigue and unexplained weight loss as well as abnormal laboratory studies demonstrating marked elevation of his creatinine level. He has denied any ongoing chest discomfort or difficulty breathing. He has denied orthopnea and PND and peripheral pitting edema. He states that he still has intermittent episodes of his paroxysmal atrial fibrillation which can last for several hours. He knows when it starts and stops. He has had no near syncope or syncope. He has been undergoing evaluation by internal medicine, nephrology, and hematology/oncology. Is pending upcoming renal biopsy and bone marrow aspirate/biopsy. Since his hospitalization he was noted originally to be in sinus rhythm. He has had an episode of recurrent paroxysmal atrial fibrillation. He had spontaneous conversion to sinus rhythm. He has been on medical therapy to assist with his cardiovascular condition. His anticoagulants with respect to his novel oral anticoagulant agents/direct oral anticoagulant agents have been placed on hold based upon his underlying renal insufficiency and need for upcoming invasive procedures. [] Past Medical History Allergies/Adverse Reactions: Allergies scopolamine Adverse Reaction (Verified 08/05/20 16:32) HALLUCINATIONS SOME TYPE OF IV DYE FOR ULTRA BRYCE Adverse Reaction (Uncoded 08/05/20 16:32) backache Had during ultrasound of his heart Home Medications: Ambulatory Orders Medication Instructions Recorded Glimepiride [Amaryl] 4 mg PO DAILY 01/21/16 Omeprazole [Prilosec] 40 mg PO DAILY 01/21/16 Tamsulosin HCl [Flomax] 0.4 mg PO DAILY 01/21/16 sitagliptin 100 mg tablet 100 mg PO DAILY 10/26/17 metformin 500 mg tablet 500 mg PO TID tab 10/17/18 metoprolol tartrate 50 mg tablet 50 mg PO BID 10/18/18 omega-3 fatty acids 1,000 mg 1,000 mg PO DAILY@1200 cap 01/22/20 capsule losartan 100 mg tablet 50 mg PO BID #90 tab 07/10/20 pravastatin 20 mg tablet 20 mg PO QHS #90 tab 07/10/20 rivaroxaban 20 mg tablet 20 mg PO DAILY #90 tab 07/10/20 Amiodarone HCl 200 mg PO DAILY 08/05/20 Past Medical History (Chronic Problems): Chronic Problems (Last Reviewed 01/22/20 @ 11:08 by Brittani Peoples) 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) CAD in [place] artery (Chronic) Wide-complex tachycardia (Chronic) Pure hypercholesterolemia (Chronic) Essential hypertension (Chronic) Encounter for long-term current use of high risk medication (Chronic) Atherosclerotic heart disease of [place] coronary artery without angina pectoris (Chronic) CX 20-30% prox-mid stenosis, LAD 20-30% and 10-20% anterior trunk stenosis, OM1 20-30% tapering ostial stenosis, RCA 20% prox stenosis- per cath 08/14/08; LEFT MAIN: Mild luminal irregularities; LEFT ANTERIOR DESCENDING ARTERY: PROX LAD: Mild calcification, Mild luminal irregularities, eccentric: 10 - 25 % Stenosis; MID LAD: Mild luminal irregularities; CIRCUMFLEX ARTERY: Mild luminal irregularities; RIGHT CORONARY ARTERY: PROX RCA: Mild calcification, Mild luminal irregularities, eccentric: 10 - 25 % Stenosis MID RCA: Mild luminal irregularities; AORTIC ROOT: Angiographically normal per cath 05/16/19 Paroxysmal atrial fibrillation (Chronic) Gastroesophageal reflux disease (Chronic) Diabetes mellitus, type II (Chronic) Surgical History: cholecystectomy - Cholecystectomy with ERCP. Psychiatric History: No pertinent psych hx - *Family History Maternal Family History: Family History (Last Reviewed 01/22/20 @ 11:08 by Brittani Peoples) Father CAD (coronary artery disease) Mother Alzheimers disease Sister Breast cancer History Items: Dementia Paternal Family History: Family History (Last Reviewed 01/22/20 @ 11:08 by Brittani Peoples) Father CAD (coronary artery disease) Mother Alzheimers disease Sister Breast cancer History Items: Cancer - Father with history of colon cancer., High Cholesterol, Heart Disease, Hypertension Lives: Spouse/ Significant Other Smoking Status: Never smoker Tobacco Use: Non-smoker Alcohol: None Drugs: None Review of Systems - Review of Systems General: Reports: Weight Loss. Denies: Fever, Fatigue, Night Sweats Cardiovascular: Reports: Palpitations. Denies: Chest Discomfort, Shortness of Breath, Orthopnea, PND, Peripheral Edema, Lightheadedness, Dizziness, Near Syncope, Syncope Respiratory: Denies: Cough, Sputum Production, Hemoptysis Gastrointestinal: Denies: Hematemesis, Hematochezia, Melena Genitourinary: Denies: Dysuria, Hematuria Skin: Denies: Rash Subjectve: This is a 74-year-old white male appears to be resting comfortably at the moment in no acute distress. Objective: Vital Signs Temp Pulse Resp BP Pulse Ox 98.1 F 66 18 116/63 100 08/09/20 14:18 08/09/20 14:18 08/09/20 14:18 08/09/20 14:18 08/09/20 14:18 Oxygen Delivery Method Room Air Weight: 160 lb 14.999 oz Body Mass Index (BMI) 21.7 Finger Stick Blood Glucose 161 Intake and Output for Last 24 Hours 08/07/20 08/08/20 08/09/20 23:59 23:59 23:59 Intake Total 2447.50 / 2447.50 2029 / 2029 1801.25 / 1801.25 Output Total 2074 / 2074 1675 / 1675 2099 / 2099 Balance 372.50 / 372.50 355 / 355 -298.75 / -298.75 General: Awake, Alert, Oriented x 3, Cooperative, No Acute Distress HEENT: Atraumatic, Normocephalic, PERRL, EOMI, Sclera Non Icteric Neck: Supple, Good ROM, No JVD Lungs: Clear to auscultation Cardiovascular: Regular Rhythm, Normal S1, Normal S2 Vascular: No Carotid Bruits Abdomen: Bowel Sounds Present, Soft Extremities: No edema Neurological: No Focal Motor or Sensory Deficit Psych/Mental Status: Appropriate 08/09/20 06:38: WBC 6.2, RBC 2.38 L, Hgb 7.5 L, Hct 23.0 L, MCV 96.6 H, MCH 31.5, MCHC 32.6, Plt Count 105 L, MPV 12.4 H 08/09/20 06:38: Sodium 145, Potassium 4.0, Chloride 118 H, Carbon Dioxide 18.0 L, Anion Gap 9, BUN 72 H, Creatinine 6.93 H, Est GFR (MDRD) Af Amer 10 L, Est GFR (MDRD) Non-Af 8 L, BUN/Creatinine Ratio 10.4, Glucose 155 H, Calcium 7.0 L Rhythm: Sinus rhythm: An episode of paroxysmal atrial fibrillation EKG: Sinus rhythm ECHO: 12-15-2014 Interpretation Summary Left ventricular systolic function is normal. The estimated ejection fraction is 60 %. Mild (1+) mitral valve insufficiency. Trivial tricuspid valve insufficiency. Trivial aortic valve insufficiency. Trivial pulmonic valve insufficiency. Stress Test: Stress Test Report Date: 04-25-19 Procedure: Pharmacologic stress nuclear imaging study Indications: Palpitations; atrial fibrillation Consent: Per the patient Procedure: The patient underwent pharmacologic (Regadenoson) evaluation with a peak heart rate of 129 beats per minute (88 %predicted maximal heart rate) and a peak blood pressure of 130/72 mmHg. The baseline ECG demonstrated atrial fibrillation; nonspecific T wave abnormality. The peak pharmacologic ECG demonstrated no obvious ECG changes. There was an isolated PVC during infusion and a rare PVC during recovery. There was no complaint of chest discomfort during pharmacologic infusion or recovery. The examination was discontinued secondary to completion of protocol. Impression: 1. Pharmacologic (Regadenoson) evaluation 2. Peak pharmacologic ECG with no obvious ECG changes. 3. There was an isolated PVC during infusion and a rare PVC during recovery. 4. Nuclear images pending Myocardial perfusion imaging study: Technique: The patient was injected with 11.0 millicuries of technetium 99m Cardiolite and subsequently rest SPECT Cardiolite nuclear imaging was obtained in the horizontal long, vertical long, and short axis views. The patient underwent pharmacologic (Regadenoson) evaluation with a peak heart rate of 129 beats per minute (88 % percent predicted maximal heart rate) and a peak blood pressure of 130/72 mmHg. The patient was injected with 34 millicuries of technetium 99m Cardiolite and subsequently stress SPECT Cardiolite nuclear imaging was obtained in the horizontal long, vertical long, and short axis views. A gated Cardiolite study at peak stress was obtained. Interpretation: Rest and stress SPECT Cardiolite nuclear imaging status post realignment, normalization, and attenuation correction demonstrate the appearance of extracardiac/gastrointestinal tracer uptake near the inferior segments as well as a small area diminished tracer uptake near the apical segments without significant change between rest and stress. There is end systolic thickening and brightening. The gated Cardiolite study demonstrates myocardial thickening and inward wall motion. The reported LVEF is 55 %. Impression: 1. Rest and stress SPECT current nuclear imaging demonstrate myocardial perfusion changes compatible defects a gastrointestinal tracer uptake as well as physiologic apical thinning with no myocardial perfusion changes considered diagnostic for associated stress-induced myocardial ischemia. 2. The gated Cardiolite study reports an LVEF of 55 %. Cardiac Cath: 05-16-2019 CONCLUSIONS Elevated Left Ventricular End Diastolic Pressure Normal LV size, wall motion,and systolic function LVEF: by LV gram 60 % [place] Multivessel CAD RECOMMENDATIONS Risk factor modification Medical therapy DESCRIPTION OF PROCEDURE The patient arrived to the procedure lab. The risks and benefits of the procedure as well as a full description of our services here and current unavailability of surgical backup were fully explained to the patient and/or their significant other prior to the catheterization. The Timeout was completed, verifying the correct patient and procedure. The patient's procedural site was prepped and draped in the usual fashion. Local anesthetic was given subcutaneously to right radial region with Lidocaine 2%. Using a modified Seldinger technique, arterial access was obtained via the right radial artery, a 6Fr sheath was inserted. Left Coronary Artery selective angiography was performed in multiple views using a 5 Fr. 4.0 [place] catheter. Right Coronary Artery selective angiography was then performed in multiple views using a 5 Fr. JR 4 catheter. Left Ventriculography was performed in [place] projection using a 5 Fr. Pigtail catheter. LV to AO pullback pressures were then recorded.The arterial sheath was pulled and a TR Band was applied for hemostasis CORONARY ANGIOGRAPHY DOMINANCE: Co- Dominant LEFT HEART ASSESSMENT Left Ventricular Ejection Fraction: by LV Gram 60 % Normal LV wall motion Elevated Left Ventricular End Diastolic Pressure LVEDP: 20 mmHg LEFT MAIN: Mild luminal irregularities LEFT ANTERIOR DESCENDING ARTERY: PROX LAD: Mild calcification, Mild luminal irregularities, eccentric: 10 - 25 % Stenosis MID LAD: Mild luminal irregularities CIRCUMFLEX ARTERY: Mild luminal irregularities RIGHT CORONARY ARTERY: PROX RCA: Mild calcification, Mild luminal irregularities, eccentric: 10 - 25 % Stenosis MID RCA: Mild luminal irregularities AORTIC ROOT: Angiographically normal Assessment/Plan 1. CAD At the present time the patient has CAD. He has been evaluated in the past. It has been felt to be nonangiographically significant. He should continue risk factor modification medical therapy as deemed appropriate with adjustments based upon his clinical status, renal insufficiency, etc. It does not appear he needs further noninvasive or invasive evaluation of his CAD status at this time. 2. Paroxysmal atrial fibrillation The patient does have a history of paroxysmal atrial fibrillation. He has been on medical therapy with rate control, antiarrhythmic therapy, and anticoagulant therapy. At the moment it may not be unreasonable to repeat his transthoracic echocardiogram to reassess his atrial size as well as his left ventricular wall motion and overall systolic function/LVEF to help guide further evaluation and care. He will continue medical therapy. His novel/direct acting oral anticoagulants are on hold at this time. It appears he has had 1 somewhat brief episode of recurrent paroxysmal atrial fibrillation. If he has recurrent episodes then it would be reasonable to place him on alternative anticoagulant therapy such as heparin which can be adjusted in and around the time of his invasive procedures as long as he is able to receive such medication based upon concerns of his underlying anemia. Following his renal biopsy and bone marrow aspirate depending upon his clinical course and outcomes he may need to be placed on alternative oral anticoagulant therapy, based upon his renal insufficiency issues, such as warfarin/Coumadin. 3. Hyperlipidemia He should continue medical management as he is able. 4. Hypertension His blood pressure can be followed and his medicines can be adjusted as needed taken into consideration his other conditions and his renal insufficiency. 5. Acute renal insufficiency The etiology is unclear at this time. There is concerned this may be compatible with an underlying hematologic issue. He is pending further evaluation with a renal biopsy. 6. Anemia He is anemic. It appears there is concerned this may be anemia of chronic disease. It is unclear as to whether or not his renal insufficiency is participating in this. This may play a role in anticoagulant therapy both short-term and long-term. Again he has been undergoing evaluation by hematology/oncology. 7. Monoclonal gammopathy There is concern he may have an underlying monoclonal gammopathy. Thus he is being evaluated by both nephrology and hematology. Again he is pending upcoming evaluation with renal biopsy and bone marrow aspirate/biopsy. Based upon this concern it may not be unreasonable to reassess his cardiac anatomy and function for any obvious involvement in his underlying medical conditions. This note was generated using a voice recognition system and there may be incorrect words, spelling or punctuation that were not noted when reviewing the office note prior to saving.
--- NOTE | 2020-08-09 18:55 | ECHOD_ITS ---
Reason For Study: AFIB/FLUTTER Procedure This was a 2D Doppler, Color Flow transthoracic echocardiogram. The exam was of adequate technical quality. Exam performed portable in patient room. Left Ventricle Normal LV size. Left ventricular systolic function is normal. The estimated ejection fraction is 65 %. No evidence for diastolic dysfunction. No regional wall motion abnormalities noted. Right Ventricle Normal RV size. Normal systolic function. Atria The left atrium is mildly enlarged. Normal right atrium. No doppler evidence for ASD. Mitral Valve There is no mitral annular calcification. Normal mitral valve. Trivial mitral valve insufficiency. Tricuspid Valve Normal tricuspid valve. Trivial tricuspid valve insufficiency. Aortic Valve Trisinus/trileaflet aortic valve. Normal aortic valve. Pulmonic Valve The pulmonic valve is not well visualized. Great Vessels Normal sized aortic root. Pericardium/Pleural No pericardial effusion. MMode/2D Measurements & Calculations LVIDd: 4.4 cm IVSd: 1.1 cm Ao root diam: 3.1 cm LVIDs: 2.7 cm LVPWd: 1.1 cm RVDd: 4.4 cm FS: 39.2 % LAV(MOD-bp): 74.8 ml LA A4 area: 21.7 cm2 LA dimension(2D): 3.4 cm LAV(MOD-bp) Indexed: 38.8 ml/m2 LAV(MOD-sp2): 62.7 ml LAV(MOD-sp4): 76.3 ml RA A4 area: 16.3 cm2 Time Measurements MV dec time: 0.21 sec Doppler Measurements & Calculations MV E max shane: 78.6 cm/sec Lat Peak E' Shane: 9.6 cm/sec Med Peak E' Shane: 9.3 cm/sec MV A max shane: 84.2 cm/sec E/E' lat: 8.2 E/E' med: 8.5 MV E/A: 0.93 Ao V2 max: 132.7 cm/sec LV V1 max: 97.5 cm/sec PA V2 max: 110.8 cm/sec Ao max P.0 mmHg LV V1 max P.8 mmHg Interpretation Summary Left ventricular systolic function is normal. The estimated ejection fraction is 65 %. The left atrium is mildly enlarged. Trivial mitral valve insufficiency. Trivial tricuspid valve insufficiency. No evidence for diastolic dysfunction. Ordering Physician: Blake Blas Referring Physician: Guanakito Quarles Performed By: Aubire Boyd, GHULAMCS, RVT
[2020-08-09] MEDS: Pravastatin 20 MG Tablet PO (22:09)
[2020-08-09 22:25] LABS: Bedside Glucose 265 mg/dL (70-110)
[2020-08-10] VITALS (11 sets, daily range): BP systolic 115–136; BP diastolic 58–67; PULSE 65–73; RESP 16–18; TEMP 36.7–37.2; O2SAT 95–98
[2020-08-10] MEDS: Dext 5%-0.45% NS 1,000 ML 75 ML IV (01:27)
[2020-08-10 02:36] LABS: Bedside Glucose 271 mg/dL (70-110)
[2020-08-10 06:55] LABS: Bedside Glucose 139 mg/dL (70-110)
[2020-08-10 07:35] LABS: Anion Gap 10 (5-15); BUN 71 mg/dL (7-18); BUN/Creat Ratio 9.8 RATIO (10-20); Calcium,Total 7.1 mg/dL (8.5-10.1); Chloride 116 mmol/L (98-107); Creatinine, Serum 7.23 mg/dL (0.70-1.30); EST Glomerular Filtration Rate 8 mL/min (>60); Est Glom Filt Rate - Afr Amer 10 mL/min (>60); Estimated Creatinine Clearance 9.19 ml/min; Glucose 134 mg/dL (74-106); Potassium 3.8 mmol/L (3.5-5.1); Sodium Level 144 mmol/L (136-145)
--- NOTE | 2020-08-10 07:50 | PN_ITS ---
Patient Problems: Active and Suspected Problems (Last Reviewed 01/22/20 @ 11:08 by Brittani Peoples) Acute renal injury (Acute) Anemia (Acute) Monoclonal gammopathy (Acute) Reason for Visit: Acute renal failure Severe anemia Subjective: 08/09/2020; patient seen kidney function continues to worsen. Hemoglobin down to 7.5. Patient was seen in consultation by nephrology recommended for patient to undergo renal biopsy on 08/12/2020. Patient will be kept off Eliquis and kept in the hospital the meantime whilst monitoring his kidney function 08/10/2020; patient was seen in consultation by both cardiology Dr. Blas and oncology Dr. Mckeon notes and recommendations reviewed Objective: GENERAL: cooperative HEENT: Atraumatic; EYES; Anicteric, Normal Conjunctiva NECK; supple, normal thyroid, RESPIRATORY: Diminished to auscultation CARDIOVASCULAR: Regular S1 S2, GI: soft, normoactive bowel sounds, : No Renal angle tenderness; EXTREMITIES: No edema, no clubbing, MUSCULOSKELETAL: no muscle waisting NEURO: Awake; no lateralizing signs. SKIN: No Rash PSYCH; Flat affect Vitals/I&O's: Vital Signs Temp Pulse Resp BP Pulse Ox 98.4 F 66 18 131/63 H 95 08/10/20 02:13 08/10/20 04:00 08/10/20 02:13 08/10/20 02:13 08/10/20 02:13 Oxygen Delivery Method Room Air Weight: 73.6 kg Body Mass Index (BMI) 21.7 Finger Stick Blood Glucose 161 Intake and Output for Last 24 Hours 08/08/20 08/09/20 08/10/20 23:59 23:59 23:59 Intake Total 2030 / 2030 1801.25 / 1801.25 1600 / 1600 Output Total 1675 / 1675 2100 / 2100 900 / 900 Balance 355 / 355 -298.75 / -298.75 700 / 700 Microbiology Past 72 Hours 08/08/20 16:25 Stool Stool Occult Blood (SKYLER) - Final Laboratory Results 08/06/20 13:54: Total Protein (PEP) 4.9 L, Globulin 2.3, IgG 821, IgA 142, IgM 53, Immunofixation Screen Comment H, Albumin (JOSE J) 2.6 L, Albumin/Globulin (JOSE J) 1.2, Ssbpx-4-Tryskmomv JOSE J 0.2, Fwclk-2-Nwuwtkplx JOSE J 0.7, Beta-Globulins (JOSE J) 0.6 L, Gamma Globulins (JOSE J) 0.8, JOSE J M-[place] , JOSE J Comments Comment, c-ANCA Antibody <1:20, Atypical p-ANCA <1:20, p-ANCA Antibody <1:20 08/09/20 06:38: Immature Plt Fraction 6.4, Retic Count 0.95, Immature Retic Fraction 10.00, Retic Hgb Equivalent 35.7 H 08/09/20 06:38: Lactate Dehydrogenase 159 08/09/20 11:33: POC Glucose 291 H 08/09/20 17:45: POC Glucose 271 H 08/09/20 22:04: POC Glucose 265 H 08/10/20 06:42: Sodium 144, Potassium 3.8, Chloride 116 H, Carbon Dioxide 18.0 L , Anion Gap 10, BUN 71 H, Creatinine 7.23 H, Estim Creat Clear Calc 9.19, Est GFR (MDRD) Af Amer 10 L, Est GFR (MDRD) Non-Af 8 L, BUN/Creatinine Ratio 9.8 L, Glucose 134 H, Calcium 7.1 L 08/10/20 06:42: Free [place] LC, Quant Pending, Free Lambda LC, Quant Pending, Free [place]/Lambda Ratio Pending 08/10/20 06:50: POC Glucose 139 H Current Medications Acetaminophen (Acetaminophen 325 Mg Tablet) 650 mg PO Q6H PRN PRN PRN Reason: Pain Score 1-10/Temp > 100.7 F Last Admin: 08/09/20 22:10 Dose: 650 mg Documented by: Albuterol Sulfate (Albuterol 2.5 Mg/3 Ml Vial.Neb.) 2.5 mg INHALATION Q2H PRN PRN PRN Reason: Dyspnea, wheezing Amiodarone HCl (Amiodarone 200 Mg Tablet) 200 mg PO DINNER CK Last Admin: 08/09/20 17:47 Dose: 200 mg Documented by: Guaifenesin (Guaifenesin 10 Ml Udc (200mg/10ml)) 20 ml PO Q4H PRN PRN PRN Reason: COUGH Hydralazine HCl (Hydralazine 20 Mg/Ml Vial) 10 mg IV Q4H PRN PRN PRN Reason: SBP > 160 Ceftriaxone Sodium 2 gm/ (Sodium Chloride) 50 mls @ 100 mls/hr IV Q24 [facility] Last Infusion: 08/09/20 11:57 Dose: Infused Documented by: Dextrose/Sodium Chloride () 1,000 mls @ 75 mls/hr IV .[id number] [facility] Last Admin: 08/10/20 01:27 Dose: 75 mls/hr Documented by: Insulin Human Lispro (Insulin Lispro 100 Unit/Ml Insuln.Pen) 0 unit SC ACHS [facility]; Protocol Last Admin: 08/10/20 06:51 Dose: Not Given Documented by: Melatonin (Melatonin 3 Mg Tablet) 3 mg PO QHS PRN PRN PRN Reason: INSOMNIA Metoprolol Tartrate (Metoprolol Tartrate 50 Mg Tablet) 50 mg PO BID [facility] Last Admin: 08/09/20 22:13 Dose: 50 mg Documented by: Nitroglycerin (Nitroglycerin (Inpatient Use) 0.4 Mg Tab.Subl) 0.4 mg SUBLINGUAL Q5M PRN PRN Reason: CARDIAC/CHEST PAIN Ondansetron HCl (Ondansetron 4 Mg/2 Ml Vial) 4 mg IV Q8H PRN PRN PRN Reason: NAUSEA/VOMITING Pantoprazole Sodium (Pantoprazole Sodium 20 Mg Tablet) 20 mg PO DAILY [facility] Last Admin: 08/09/20 08:30 Dose: 20 mg Documented by: Pravastatin Sodium (Pravastatin 20 Mg Tablet) 20 mg PO QHS [facility] Last Admin: 08/09/20 22:09 Dose: 20 mg Documented by: Prochlorperazine Edisylate (Prochlorperazine 10 Mg/2 Ml Vial) 5 mg IV Q4H PRN PRN PRN Reason: Breakthrough nausea/vomiting Psyllium Hydrophilic Mucilloid (Psyllium 1 Packet) 1 packet PO DAILY PRN PRN PRN Reason: Constipation Senna/Docusate Sodium (Senna/Docusate Sodium 1 Tablet) 2 tablet PO BID PRN PRN PRN Reason: Constipation Sodium Bicarbonate (Sodium Bicarbonate 650 Mg Tablet) 1,300 mg PO 4X/DAY [facility] Last Admin: 08/09/20 22:10 Dose: 1,300 mg Documented by: Sodium Chloride (0.9% Saline Lock 10 Ml Syringe) 10 - 40 ml IV UD PRN PRN Reason: SALINE FLUSH Tamsulosin HCl (Tamsulosin Hcl 0.4 Mg Capsule) 0.4 mg PO DAILY [facility] Last Admin: 08/09/20 08:30 Dose: 0.4 mg Documented by: STROKE Vital Signs/Narrative: Vital Signs Pulse 08/10/20 04:00 66 Medical Necessity - Tobacco Use Smoking Status: Never smoker Tobacco Use: Non-smoker Assessment/Plan All Active Problems (Last Reviewed 01/22/20 @ 11:08 by Brittani Peoples) Acute renal injury (Acute) Anemia (Acute) Monoclonal gammopathy (Acute) SOB (shortness of breath) (Acute) Acute renal injury (Acute) Acute bacterial prostatitis (Resolved) Bacteremia due to Gram-negative bacteria (Resolved) Biloma following surgery (Resolved) Gangrene of gallbladder (Resolved) Hypoalbuminemia (Resolved) Hypokalemia (Resolved) Hypomagnesemia (Resolved) Severe sepsis (Resolved) Thrombocytopenia (Resolved) Patient is a 74-year-old male sent from PCPs office with abnormal labs. Found to have acute kidney injury with creatinine greater than 7. Patient had normal kidney function as of January 2020. 1. Acute kidney injury -The combination of dehydration as well as use of potential nephrotoxic medications. Suspected offending medications held started on IV fluid. Ordered renal ultrasound to rule out bladder outlet obstruction subsequent monitoring of kidney function with daily BMPs -08/07/2020; patient was seen in consultation by nephrology. Notes and recommendations reviewed -08/08/2020 no significant improvement in patient kidney function. - 08/09/2020; patient seen kidney function continues to worsen. Patient was seen in consultation by nephrology recommended for patient to undergo renal biopsy on 08/12/2020. Patient will be kept off Eliquis and kept in the hospital the meantime whilst monitoring his kidney function 08/10/2020; patient kidney function continues to worsen. Biopsy has been planned for 08/12/2020 2. Anemia - Secondary suspected to be secondary to anemia of chronic disorder, ordered iron studies. Patient was transfused 1 unit PRBC on 08/07/2020 with subsequent monitoring H&H and transfuse if patient becomes symptomatic or hemoglobin falls below 7. As part of his evaluation ordered iron studies and stool for guaiac -08/08/2020; patient states he had a negative colonoscopy in January. He has never had an EGD. He is to is guaiac positive. Plan is to consult general surgery for possible endoscopic evaluation - 08/08/2020. Hemoglobin up to 7.9 after being transfused with 1 unit PRBC. Consult was placed to general surgery for possible upper endoscopy given patient guaiac positive stools. Of note patient had a colonoscopy in [address] Terrazas found 3 polyps no malignancy. Did request for old records. ?08/09/2020 Hemoglobin down to 7.5.. Patient was also seen in consultation by Dr. Vazquez with general surgery plan is for patient to undergo outpatient upper EGD complete his work-up of anemia -08/10/2020; patient was seen in consultation by Dr. Mckeon with oncology. His n otes and recommendations reviewed 3. Abnormal urinalysis ?Present on admission patient started on Rocephin 4. Diabetes mellitus type 2 Complications including hypoglycemia. Held patient oral agents placed on Accu- Cheks before meals and at bedtime with sliding scale coverage 5. Paroxysmal A. fib ?Rate controlled on amiodarone did continue also on systemic anticoagulation with rivaroxaban did continue -rivaroxaban held in view of patient significant anemia -08/10/2020; patient was seen in consultation by Dr. Blas the day prior 6. History of wide-complex tachycardia -Is on amiodarone 7. Essential hypertension Patient is on losartan in view of impaired kidney function losartan was held please on hydralazine as needed for systolic blood pressure greater than 160 8. Dyslipidemia -Patient is on statin therapy, continued at home dose 9. GERD ?On PPI 10. BPH -On tamsulosin 10. DVT prophylaxis ~ xarelto -08/07/2020; Xarelto held Inpatient E&M: [id number] [facility] L2
[2020-08-10] MEDS: Pantoprazole Sodium 20 MG Tablet PO (09:23)
[2020-08-10] MEDS: Metoprolol Tartrate 50 MG Tablet PO ×2 (09:23→21:28)
[2020-08-10] MEDS: Tamsulosin HCl 0.4 MG Capsule PO (09:23)
[2020-08-10] MEDS: Sodium Bicarbonate 650 MG Tablet 1300 MG PO ×4 (09:46→21:28)
[2020-08-10] MEDS: Acetaminophen 325 MG Tablet 650 MG PO (09:47)
--- NOTE | 2020-08-10 10:25 | PN.SURG_ITS ---
Patient Problems: Active and Suspected Problems (Last Reviewed 01/22/20 @ 11:08 by Brittani Peoples) Acute renal injury (Acute) Anemia (Acute) Monoclonal gammopathy (Acute) Subjective: Patient has not had anything any obvious signs of bleeding no rectal bleeding no black tarry stools. Not complaining of any abdominal pain Objective: Abdomen is soft and nontender. - Physical Exam Vitals/I&O's: Vital Signs Temp Pulse Resp BP Pulse Ox 98.3 F 73 18 123/58 H 96 08/10/20 08:15 08/10/20 09:23 08/10/20 08:15 08/10/20 09:23 08/10/20 08:15 Oxygen Delivery Method Room Air Weight: 162 lb 4.163 oz Body Mass Index (BMI) 21.7 Finger Stick Blood Glucose 161 Intake and Output for Last 24 Hours 08/08/20 08/09/20 08/10/20 23:59 23:59 23:59 Intake Total 2030 / 2030 1801.25 / 1801.25 1600 / 1600 Output Total 1675 / 1675 2100 / 2100 900 / 900 Balance 355 / 355 -298.75 / -298.75 700 / 700 Microbiology Past 72 Hours 08/08/20 16:25 Stool Stool Occult Blood (SKYLER) - Final Laboratory Results 08/06/20 13:54: Total Protein (PEP) 4.9 L, Globulin 2.3, IgG 821, IgA 142, IgM 53, Immunofixation Screen Comment H, Albumin (JOSE J) 2.6 L, Albumin/Globulin (JOSE J) 1.2, Tnpgd-5-Cfnebexpz JOSE J 0.2, Pbult-2-Nlyvadtiz JOSE J 0.7, Beta-Globulins (JOSE J) 0.6 L, Gamma Globulins (JOSE J) 0.8, JOSE J M-[place] , JOSE J Comments Comment, c-ANCA Antibody <1:20, Atypical p-ANCA <1:20, p-ANCA Antibody <1:20 08/09/20 06:38: Immature Plt Fraction 6.4, Retic Count 0.95, Immature Retic Fraction 10.00, Retic Hgb Equivalent 35.7 H 08/09/20 06:38: Lactate Dehydrogenase 159 08/09/20 11:33: POC Glucose 291 H 08/09/20 17:45: POC Glucose 271 H 08/09/20 22:04: POC Glucose 265 H 08/10/20 06:42: Sodium 144, Potassium 3.8, Chloride 116 H, Carbon Dioxide 18.0 L , Anion Gap 10, BUN 71 H, Creatinine 7.23 H, Estim Creat Clear Calc 9.19, Est GFR (MDRD) Af Amer 10 L, Est GFR (MDRD) Non-Af 8 L, BUN/Creatinine Ratio 9.8 L, Glucose 134 H, Calcium 7.1 L 08/10/20 06:42: Free [place] LC, Quant Pending, Free Lambda LC, Quant Pending, Free [place]/Lambda Ratio Pending 08/10/20 06:50: POC Glucose 139 H Current Medications Acetaminophen (Acetaminophen 325 Mg Tablet) 650 mg PO Q6H PRN PRN PRN Reason: Pain Score 1-10/Temp > 100.7 F Last Admin: 08/10/20 09:47 Dose: 650 mg Documented by: Albuterol Sulfate (Albuterol 2.5 Mg/3 Ml Vial.Neb.) 2.5 mg INHALATION Q2H PRN PRN PRN Reason: Dyspnea, wheezing Amiodarone HCl (Amiodarone 200 Mg Tablet) 200 mg PO DINNER [facility] Last Admin: 08/09/20 17:47 Dose: 200 mg Documented by: Guaifenesin (Guaifenesin 10 Ml Udc (200mg/10ml)) 20 ml PO Q4H PRN PRN PRN Reason: COUGH Hydralazine HCl (Hydralazine 20 Mg/Ml Vial) 10 mg IV Q4H PRN PRN PRN Reason: SBP > 160 Ceftriaxone Sodium 2 gm/ (Sodium Chloride) 50 mls @ 100 mls/hr IV Q24 [facility] Last Admin: 08/10/20 09:51 Dose: 100 mls/hr Documented by: Dextrose/Sodium Chloride () 1,000 mls @ 75 mls/hr IV .[id number] [facility] Last Admin: 08/10/20 01:27 Dose: 75 mls/hr Documented by: Insulin Human Lispro (Insulin Lispro 100 Unit/Ml Insuln.Pen) 0 unit SC ACHS [facility]; Protocol Last Admin: 08/10/20 06:51 Dose: Not Given Documented by: Melatonin (Melatonin 3 Mg Tablet) 3 mg PO QHS PRN PRN PRN Reason: INSOMNIA Metoprolol Tartrate (Metoprolol Tartrate 50 Mg Tablet) 50 mg PO BID [facility] Last Admin: 08/10/20 09:23 Dose: 50 mg Documented by: Nitroglycerin (Nitroglycerin (Inpatient Use) 0.4 Mg Tab.Subl) 0.4 mg SUBLINGUAL Q5M PRN PRN Reason: CARDIAC/CHEST PAIN Ondansetron HCl (Ondansetron 4 Mg/2 Ml Vial) 4 mg IV Q8H PRN PRN PRN Reason: NAUSEA/VOMITING Pantoprazole Sodium (Pantoprazole Sodium 20 Mg Tablet) 20 mg PO DAILY [facility] Last Admin: 08/10/20 09:23 Dose: 20 mg Documented by: Pravastatin Sodium (Pravastatin 20 Mg Tablet) 20 mg PO QHS [facility] Last Admin: 08/09/20 22:09 Dose: 20 mg Documented by: Prochlorperazine Edisylate (Prochlorperazine 10 Mg/2 Ml Vial) 5 mg IV Q4H PRN PRN PRN Reason: Breakthrough nausea/vomiting Psyllium Hydrophilic Mucilloid (Psyllium 1 Packet) 1 packet PO DAILY PRN PRN PRN Reason: Constipation Senna/Docusate Sodium (Senna/Docusate Sodium 1 Tablet) 2 tablet PO BID PRN PRN PRN Reason: Constipation Sodium Bicarbonate (Sodium Bicarbonate 650 Mg Tablet) 1,300 mg PO 4X/DAY [facility] Last Admin: 08/10/20 09:46 Dose: 1,300 mg Documented by: Sodium Chloride (0.9% Saline Lock 10 Ml Syringe) 10 - 40 ml IV UD PRN PRN Reason: SALINE FLUSH Tamsulosin HCl (Tamsulosin Hcl 0.4 Mg Capsule) 0.4 mg PO DAILY [facility] Last Admin: 08/10/20 09:23 Dose: 0.4 mg Documented by: Medical Necessity - Tobacco Use Smoking Status: Never smoker Tobacco Use: Non-smoker Assessment/Plan All Active Problems (Last Reviewed 01/22/20 @ 11:08 by Brittani Peoples) Acute renal injury (Acute) Anemia (Acute) Monoclonal gammopathy (Acute) SOB (shortness of breath) (Acute) Acute renal injury (Acute) Acute bacterial prostatitis (Resolved) Bacteremia due to Gram-negative bacteria (Resolved) Biloma following surgery (Resolved) Gangrene of gallbladder (Resolved) Hypoalbuminemia (Resolved) Hypokalemia (Resolved) Hypomagnesemia (Resolved) Severe sepsis (Resolved) Thrombocytopenia (Resolved) Plan at the present is still to do outpatient endoscopies on the patient. This may change given the fact that he will be off of his Eliquis for kidney biopsies. We will discuss this with Dr. Hoover on Wednesday. Inpatient E&M: [id number] Subs Hosp L2
[2020-08-10 11:41] LABS: Bedside Glucose 304 mg/dL (70-110)
[2020-08-10] MEDS: Insulin Lispro 100 UNIT/ML INSULN.PEN SC ×2 (12:37→16:50)
[2020-08-10] MEDS: Ondansetron 4 MG/2 ML Vial IV (12:49)
[2020-08-10] MEDS: 0.9% Saline Lock 10 ML Syringe IV (12:49)
[2020-08-10] MEDS: Loperamide 2 MG Capsule 4 MG PO (13:29)
[2020-08-10] MEDS: 0.45% Normal Saline 1,000 ML 75 ML IV (13:29)
--- NOTE | 2020-08-10 15:15 | PN.CARD_ITS ---
Subjectve: The patient is awake and alert. He denies any ongoing palpitations or rapid heart rates at this time. Objective: Vital Signs Temp Pulse Resp BP Pulse Ox 98.3 F 65 18 123/58 H 96 08/10/20 08:15 08/10/20 13:23 08/10/20 08:15 08/10/20 09:23 08/10/20 08:15 Oxygen Delivery Method Room Air Weight: 162 lb 4.163 oz Body Mass Index (BMI) 21.7 Finger Stick Blood Glucose 161 Intake and Output for Last 24 Hours 08/08/20 08/09/20 08/10/20 23:59 23:59 23:59 Intake Total 2029 / 2029 1801.25 / 1801.25 2552.5 / 2552.5 Output Total 1675 / 1675 2099 / 2100 900 / 900 Balance 355 / 355 -298.75 / -298.75 1652.5 / 1652.5 General: Awake, Alert, Oriented x 3, Cooperative, No Acute Distress HEENT: Atraumatic, Normocephalic, PERRL, EOMI, Sclera Non Icteric Neck: Supple, Good ROM, No JVD Lungs: Clear to auscultation Cardiovascular: Regular Rhythm, Normal S1, Normal S2 Abdomen: Bowel Sounds Present, Soft Extremities: No edema Neurological: No Focal Motor or Sensory Deficit Psych/Mental Status: Appropriate 08/10/20 06:42: Sodium 144, Potassium 3.8, Chloride 116 H, Carbon Dioxide 18.0 L , Anion Gap 10, BUN 71 H, Creatinine 7.23 H, Est GFR (MDRD) Af Amer 10 L, Est GFR (MDRD) Non-Af 8 L, BUN/Creatinine Ratio 9.8 L, Glucose 134 H, Calcium 7.1 L Rhythm: Sinus rhythm ECHO: Interpretation Summary Left ventricular systolic function is normal. The estimated ejection fraction is 65 %. The left atrium is mildly enlarged. Trivial mitral valve insufficiency. Trivial tricuspid valve insufficiency. No evidence for diastolic dysfunction. Medical Necessity - Tobacco Use Smoking Status: Never smoker Tobacco Use: Non-smoker Assessment/Plan 1. CAD At the present time the patient has CAD. He has been evaluated in the past. It has been felt to be nonangiographically significant. He should continue risk factor modification medical therapy as deemed appropriate with adjustments based upon his clinical status, renal insufficiency, etc. It does not appear he needs further noninvasive or invasive evaluation of his CAD status at this time. 2. Paroxysmal atrial fibrillation The patient does have a history of paroxysmal atrial fibrillation. He has been on medical therapy with rate control, antiarrhythmic therapy, and anticoagulant therapy. He has undergone evaluation with a repeat transthoracic echocardiogram. The results are as noted. He will continue medical therapy. His novel/direct acting oral anticoagulants are on hold at this time. It appears he has had 1 somewhat brief episode of recurrent paroxysmal atrial fibrillation. If he has recurrent episodes then it would be reasonable to place him on alternative anticoagulant therapy such as heparin which can be adjusted in and around the time of his invasive procedures as long as he is able to receive such medication based upon concerns of his underlying anemia. Following his renal biopsy and bone marrow aspirate depending upon his clinical course and outcomes he may need to be placed on alternative oral anticoagulant therapy, based upon his renal insufficiency issues, such as warfarin/Coumadin. 3. Hyperlipidemia He should continue medical management as he is able. 4. Hypertension His blood pressure can be followed and his medicines can be adjusted as needed taken into consideration his other conditions and his renal insufficiency. 5. Acute renal insufficiency The etiology is unclear at this time. There is concerned this may be compatible with an underlying hematologic issue. He is pending further evaluation with a renal biopsy. 6. Anemia He is anemic. It appears there is concerned this may be anemia of chronic disease. It is unclear as to whether or not his renal insufficiency is participating in this. This may play a role in anticoagulant therapy both short-term and long-term. Again he has been undergoing evaluation by hematology/oncology. 7. Monoclonal gammopathy There is concern he may have an underlying monoclonal gammopathy. Thus he is being evaluated by both nephrology and hematology. Again he is pending upcoming evaluation with renal biopsy and bone marrow aspirate/biopsy. Overall, at the present time, he will continue to be monitored, he will continue his medications as able, his anticoagulants are on hold pending further evaluation and care. There are no immediate plans for additional cardiac diagnostic studies/intervention at this time. Further cardiovascular care may be dictated based upon his noncardiac course and subsequent findings. This note was generated using a voice recognition system and there may be incorrect words, spelling or punctuation that were not noted when reviewing the office note prior to saving.
[2020-08-10] MEDS: Amiodarone 200 MG Tablet PO (16:51)
[2020-08-10 17:10] LABS: Bedside Glucose 228 mg/dL (70-110)
--- NOTE | 2020-08-10 19:17 | PCM.PN.REN ---
Patient Problems: Active and Suspected Problems (Last Reviewed 01/22/20 @ 11:08 by Brittani Peoples) Acute renal injury (Acute) Anemia (Acute) Monoclonal gammopathy (Acute) Subjective: Following for acute kidney injury. The patient had transient nausea earlier this morning. He is feeling relatively well now. The patient denies chest pain, shortness of breath, nausea or edema. - Physical Exam Vitals/I&O's: Vital Signs Temp Pulse Resp BP Pulse Ox 98.3 F 65 18 123/58 H 96 08/10/20 08:15 08/10/20 13:23 08/10/20 08:15 08/10/20 09:23 08/10/20 08:15 Oxygen Delivery Method Room Air Weight: 73.6 kg Body Mass Index (BMI) 21.7 Finger Stick Blood Glucose 161 Intake and Output for Last 24 Hours 08/08/20 08/09/20 08/10/20 23:59 23:59 23:59 Intake Total 2030 / 2030 1801.25 / 1801.25 2552.5 / 2552.5 Output Total 1675 / 1675 2100 / 2100 900 / 900 Balance 355 / 355 -298.75 / -298.75 1652.5 / 1652.5 General: Alert, Oriented x3 HEENT: Atraumatic, PERRLA Oral: Moist Mucosa Neck: Supple Lungs: Clear to auscultation - Anteriorly Cardiovascular: Normal S1, Normal S2, No murmurs Abdomen: Bowel Sounds Present, Soft, Non Tender Extremities: No edema Microbiology Past 72 Hours 08/08/20 16:25 Stool Stool Occult Blood (SKYLER) - Final Laboratory Results 08/09/20 17:45: POC Glucose 271 H 08/09/20 22:04: POC Glucose 265 H 08/10/20 06:42: Sodium 144, Potassium 3.8, Chloride 116 H, Carbon Dioxide 18.0 L, Anion Gap 10, BUN 71 H, Creatinine 7.23 H, Estim Creat Clear Calc 9.19, Est GFR (MDRD) Af Amer 10 L, Est GFR (MDRD) Non-Af 8 L, BUN/Creatinine Ratio 9.8 L, Glucose 134 H, Calcium 7.1 L 08/10/20 06:42: Free [place] LC, Quant Pending, Free [place] LC, Quant Pending, Free [place]/Lambda Ratio Pending 08/10/20 06:50: POC Glucose 139 H 08/10/20 11:28: POC Glucose 304 H 08/10/20 16:43: POC Glucose 228 H Current Medications Acetaminophen (Acetaminophen 325 Mg Tablet) 650 mg PO Q6H PRN PRN PRN Reason: Pain Score 1-10/Temp > 100.7 F Last Admin: 08/10/20 09:47 Dose: 650 mg Documented by: Albuterol Sulfate (Albuterol 2.5 Mg/3 Ml Vial.Neb.) 2.5 mg INHALATION Q2H PRN PRN PRN Reason: Dyspnea, wheezing Amiodarone HCl (Amiodarone 200 Mg Tablet) 200 mg PO DINNER [facility] Last Admin: 08/10/20 16:51 Dose: 200 mg Documented by: Guaifenesin (Guaifenesin 10 Ml Udc (200mg/10ml)) 20 ml PO Q4H PRN PRN PRN Reason: COUGH Hydralazine HCl (Hydralazine 20 Mg/Ml Vial) 10 mg IV Q4H PRN PRN PRN Reason: SBP > 160 Sodium Chloride () 1,000 mls @ 75 mls/hr IV .[id number] [facility] Last Admin: 08/10/20 13:29 Dose: 75 mls/hr Documented by: Insulin Human Lispro (Insulin Lispro 100 Unit/Ml Insuln.Pen) 0 unit SC [facility]; Protocol Last Admin: 08/10/20 16:50 Dose: 2 u Documented by: Melatonin (Melatonin 3 Mg Tablet) 3 mg PO QHS PRN PRN PRN Reason: INSOMNIA Metoprolol Tartrate (Metoprolol Tartrate 50 Mg Tablet) 50 mg PO BID [facility] Last Admin: 08/10/20 09:23 Dose: 50 mg Documented by: Nitroglycerin (Nitroglycerin (Inpatient Use) 0.4 Mg Tab.Subl) 0.4 mg SUBLINGUAL Q5M PRN PRN Reason: CARDIAC/CHEST PAIN Ondansetron HCl (Ondansetron 4 Mg/2 Ml Vial) 4 mg IV Q8H PRN PRN PRN Reason: NAUSEA/VOMITING Last Admin: 08/10/20 12:49 Dose: 4 mg Documented by: Pantoprazole Sodium (Pantoprazole Sodium 20 Mg Tablet) 20 mg PO DAILY [facility] Last Admin: 01/16/21 09:23 Dose: 20 mg Documented by: Pravastatin Sodium (Pravastatin 20 Mg Tablet) 20 mg PO QHS [facility] Last Admin: 08/09/20 22:09 Dose: 20 mg Documented by: Prochlorperazine Edisylate (Prochlorperazine 10 Mg/2 Ml Vial) 5 mg IV Q4H PRN PRN PRN Reason: Breakthrough nausea/vomiting Psyllium Hydrophilic Mucilloid (Psyllium 1 Packet) 1 packet PO DAILY PRN PRN PRN Reason: Constipation Senna/Docusate Sodium (Senna/Docusate Sodium 1 Tablet) 2 tablet PO BID PRN PRN PRN Reason: Constipation Sodium Bicarbonate (Sodium Bicarbonate 650 Mg Tablet) 1,300 mg PO 4X/DAY [facility] Last Admin: 08/10/20 16:57 Dose: 1,300 mg Documented by: Sodium Chloride (0.9% Saline Lock 10 Ml Syringe) 10 - 40 ml IV UD PRN PRN Reason: SALINE FLUSH Last Admin: 08/10/20 12:49 Dose: 10 ml Documented by: Tamsulosin HCl (Tamsulosin Hcl 0.4 Mg Capsule) 0.4 mg PO DAILY [facility] Last Admin: 08/10/20 09:23 Dose: 0.4 mg Documented by: Medical Necessity - Tobacco Use Smoking Status: Never smoker Tobacco Use: Non-smoker Assessment/Plan All Active Problems (Last Reviewed 01/22/20 @ 11:08 by Brittani Peoples) Acute renal injury (Acute) Anemia (Acute) Monoclonal gammopathy (Acute) SOB (shortness of breath) (Acute) Acute renal injury (Acute) Acute bacterial prostatitis (Resolved) Bacteremia due to Gram-negative bacteria (Resolved) Biloma following surgery (Resolved) Gangrene of gallbladder (Resolved) Hypoalbuminemia (Resolved) Hypokalemia (Resolved) Hypomagnesemia (Resolved) Severe sepsis (Resolved) Thrombocytopenia (Resolved) Assessment: JAKOB?possible dense ATN vs AIN but at this time etiology unclear Hyperkalemia?resolved Metabolic acidosis MGUS JOLANTA positive Proteinuria 356 mg per 24 hour collection Nephrolithiasis Renal cyst Anemia Diabetes mellitus Plan: Sodium is 145 so agree with continuing hypotonic fluids for now. The patient does not appear to be volume overloaded. Continue p.o. bicarb. Agree with holding losartan. JOLANTA positive and antidouble-stranded DNA positive renal biopsy on Wednesday. Will need rheumatology outpatient consult scheduled upon discharge as inpatient rheumatology is not available. Major risks and benefits of renal biopsy was discussed with the patient by Dr. Brower yesterday. Patient agrees to proceed with renal biopsy on Wednesday. Unfortunately, serum creatinine is continuing to rise. He will likely need dialysis by Wednesday or Wednesday if creatinine continues to rise. There is no immediate need for dialysis today since he is not uremic, hyperkalemic or severely acidotic. There is no signs of volume overload either. Recheck renal function again tomorrow.
[2020-08-10] MEDS: Pravastatin 20 MG Tablet PO (21:28)
[2020-08-10 22:06] LABS: Bedside Glucose 122 mg/dL (70-110)
[2020-08-11] VITALS (16 sets, daily range): BP systolic 117–153; BP diastolic 61–75; PULSE 56–74; RESP 16–18; TEMP 36.6–37.2; O2SAT 94–98
[2020-08-11] MEDS: 0.45% Normal Saline 1,000 ML 75 ML IV ×2 (02:14→17:41)
[2020-08-11 06:13] LABS: Hematocrit 20.8 % (40-54); Hemoglobin 6.9 g/dL (13.0-16.5); Mean Corp Hgb Conc 33.2 g/dL (32-36); Mean Corpuscular Hgb 32.2 pg (27.0-32.0); Mean Corpuscular Volume 97.2 fL (80-94); Mean Platelet Vol. 12.4 fl (6.2-12.0); POSITIVE COUNT YES; Platelet Count 94 K/mm3 (150-450); RBC Distribution Width CV 14.7 % (11.6-14.6); RBC Distribution Width SD 52.1 fl (35.1-43.9); Red Blood Count 2.14 M/mm3 (4.6-6.2)
[2020-08-11 06:18] LABS: Anion Gap 8 (5-15); BUN 63 mg/dL (7-18); BUN/Creat Ratio 8.8 RATIO (10-20); Calcium,Total 7.1 mg/dL (8.5-10.1); Chloride 115 mmol/L (98-107); Creatinine, Serum 7.14 mg/dL (0.70-1.30); EST Glomerular Filtration Rate 8 mL/min (>60); Est Glom Filt Rate - Afr Amer 10 mL/min (>60); Estimated Creatinine Clearance 9.31 ml/min; Glucose 109 mg/dL (74-106); Magnesium 1.1 mg/dL (1.6-2.6); Potassium 3.8 mmol/L (3.5-5.1); Sodium Level 144 mmol/L (136-145)
[2020-08-11 06:42] LABS: Scan Indicated on CBC? Y/N NO
--- NOTE | 2020-08-11 07:41 | PN_ITS ---
Patient Problems: Active and Suspected Problems (Last Reviewed 01/22/20 @ 11:08 by Brittani Peoples) Acute renal injury (Acute) Anemia (Acute) Monoclonal gammopathy (Acute) Reason for Visit: Acute renal failure Severe anemia Subjective: 08/09/2020; patient seen kidney function continues to worsen. Hemoglobin down to 7.5. Patient was seen in consultation by nephrology recommended for patient to undergo renal biopsy on 08/12/2020. Patient will be kept off Eliquis and kept in the hospital the meantime whilst monitoring his kidney function 08/10/2020; patient was seen in consultation by both cardiology Dr. Blas and oncology Dr. Mckeon notes and recommendations reviewed 08/11/2020. Patient immunological test with reflex panel was positive for JOLANTA screen and high titers for double-stranded DNA antibody and low complement C3 levels. Hemoglobin down to 6.9 this a.m. plan is for patient to be transfused with 1 unit PRBC magnesium 1.1 repletion initiated repeat labs ordered. Case was also discussed with Dr. Valentin with general surgery who is recommending upper endoscopic evaluation prior to patient being discharged from the hospital Objective: GENERAL: cooperative HEENT: Atraumatic; EYES; Anicteric, Normal Conjunctiva NECK; supple, normal thyroid, RESPIRATORY: Diminished to auscultation CARDIOVASCULAR: Regular S1 S2, GI: soft, normoactive bowel sounds, : No Renal angle tenderness; EXTREMITIES: No edema, no clubbing, MUSCULOSKELETAL: no muscle waisting NEURO: Awake; no lateralizing signs. SKIN: No Rash PSYCH; Flat affect Vitals/I&O's: Vital Signs Temp Pulse Resp BP Pulse Ox 98 F 62 18 128/63 H 94 08/11/20 02:00 08/11/20 05:39 08/11/20 02:00 08/11/20 02:00 08/11/20 02:00 Oxygen Delivery Method Room Air Weight: 73.539 kg Body Mass Index (BMI) 21.7 Finger Stick Blood Glucose 161 Intake and Output for Last 24 Hours 08/09/20 08/10/20 08/11/20 23:59 23:59 23:59 Intake Total 1801.25 / 1801.25 2552.5 / 2552.5 956.25 / 956.25 Output Total 2100 / 2100 900 / 2100 2400 / 2400 Balance -298.75 / -298.75 1652.5 / 452.5 -1443.75 / -1443.75 Microbiology Past 72 Hours 08/08/20 16:25 Stool Stool Occult Blood (SKYLER) - Final Laboratory Results 08/10/20 11:28: POC Glucose 304 H 08/10/20 16:43: POC Glucose 228 H 08/10/20 21:26: POC Glucose 122 H 08/11/20 05:10: WBC 5.0, RBC 2.14 L, Hgb 6.9 L, Hct 20.8 L, MCV 97.2 H, MCH 32.2 H, MCHC 33.2, RDW Std Deviation 52.1 H, RDW Coeff of Dano 14.7 H, Plt Count 94 L, MPV 12.4 H 08/11/20 05:10: Sodium 144, Potassium 3.8, Chloride 115 H, Carbon Dioxide 21.0, Anion Gap 8, BUN 63 H, Creatinine 7.14 H, Estim Creat Clear Calc 9.31, Est GFR (MDRD) Af Amer 10 L, Est GFR (MDRD) Non-Af 8 L, BUN/Creatinine Ratio 8.8 L, Glucose 109 H, Calcium 7.1 L, Magnesium 1.1 L Current Medications Acetaminophen (Acetaminophen 325 Mg Tablet) 650 mg PO Q6H PRN PRN PRN Reason: Pain Score 1-10/Temp > 100.7 F Last Admin: 08/10/20 09:47 Dose: 650 mg Documented by: Albuterol Sulfate (Albuterol 2.5 Mg/3 Ml Vial.Neb.) 2.5 mg INHALATION Q2H PRN PRN PRN Reason: Dyspnea, wheezing Amiodarone HCl (Amiodarone 200 Mg Tablet) 200 mg PO DINNER [facility] Last Admin: 08/10/20 16:51 Dose: 200 mg Documented by: Guaifenesin (Guaifenesin 10 Ml Udc (200mg/10ml)) 20 ml PO Q4H PRN PRN PRN Reason: COUGH Hydralazine HCl (Hydralazine 20 Mg/Ml Vial) 10 mg IV Q4H PRN PRN PRN Reason: SBP > 160 Sodium Chloride () 1,000 mls @ 75 mls/hr IV .[id number] [facility] Last Admin: 08/11/20 02:14 Dose: 75 mls/hr Documented by: Magnesium Sulfate 2 gm/ Sodium (Chloride) 104 mls @ 52 mls/hr IV X1 ONE Stop: 08/11/20 09:37 Insulin Human Lispro (Insulin Lispro 100 Unit/Ml Insuln.Pen) 0 unit SC ACHS [facility]; Protocol Last Admin: 08/11/20 06:31 Dose: Not Given Documented by: Melatonin (Melatonin 3 Mg Tablet) 3 mg PO QHS PRN PRN PRN Reason: INSOMNIA Metoprolol Tartrate (Metoprolol Tartrate 50 Mg Tablet) 50 mg PO BID [facility] Last Admin: 08/10/20 21:28 Dose: 50 mg Documented by: Nitroglycerin (Nitroglycerin (Inpatient Use) 0.4 Mg Tab.Subl) 0.4 mg SUBLINGUAL Q5M PRN PRN Reason: CARDIAC/CHEST PAIN Ondansetron HCl (Ondansetron 4 Mg/2 Ml Vial) 4 mg IV Q8H PRN PRN PRN Reason: NAUSEA/VOMITING Last Admin: 08/10/20 12:49 Dose: 4 mg Documented by: Pantoprazole Sodium (Pantoprazole Sodium 20 Mg Tablet) 20 mg PO DAILY [facility] Last Admin: 08/10/20 09:23 Dose: 20 mg Documented by: Pravastatin Sodium (Pravastatin 20 Mg Tablet) 20 mg PO QHS [facility] Last Admin: 08/10/20 21:28 Dose: 20 mg Documented by: Prochlorperazine Edisylate (Prochlorperazine 10 Mg/2 Ml Vial) 5 mg IV Q4H PRN PRN PRN Reason: Breakthrough nausea/vomiting Psyllium Hydrophilic Mucilloid (Psyllium 1 Packet) 1 packet PO DAILY PRN PRN PRN Reason: Constipation Senna/Docusate Sodium (Senna/Docusate Sodium 1 Tablet) 2 tablet PO BID PRN PRN PRN Reason: Constipation Sodium Bicarbonate (Sodium Bicarbonate 650 Mg Tablet) 1,300 mg PO 4X/DAY [facility] Last Admin: 08/10/20 21:28 Dose: 1,300 mg Documented by: Sodium Chloride (0.9% Saline Lock 10 Ml Syringe) 10 - 40 ml IV UD PRN PRN Reason: SALINE FLUSH Last Admin: 08/10/20 12:49 Dose: 10 ml Documented by: Tamsulosin HCl (Tamsulosin Hcl 0.4 Mg Capsule) 0.4 mg PO DAILY [facility] Last Admin: 08/10/20 09:23 Dose: 0.4 mg Documented by: STROKE Vital Signs/Narrative: Vital Signs Pulse 08/11/20 05:39 62 Medical Necessity - Tobacco Use Smoking Status: Never smoker Tobacco Use: Non-smoker Assessment/Plan All Active Problems (Last Reviewed 01/22/20 @ 11:08 by Brittani Peoples) Acute renal injury (Acute) Anemia (Acute) Monoclonal gammopathy (Acute) SOB (shortness of breath) (Acute) Acute renal injury (Acute) Acute bacterial prostatitis (Resolved) Bacteremia due to Gram-negative bacteria (Resolved) Biloma following surgery (Resolved) Gangrene of gallbladder (Resolved) Hypoalbuminemia (Resolved) Hypokalemia (Resolved) Hypomagnesemia (Resolved) Severe sepsis (Resolved) Thrombocytopenia (Resolved) Patient is a 74-year-old male sent from PCPs office with abnormal labs. Found to have acute kidney injury with creatinine greater than 7. Patient had normal kidney function as of January 2020. 1. Acute kidney injury -The combination of dehydration as well as use of potential nephrotoxic medications. Suspected offending medications held started on IV fluid. Ordered renal ultrasound to rule out bladder outlet obstruction subsequent monitoring of kidney function with daily BMPs -08/07/2020; patient was seen in consultation by nephrology. Notes and recommendations reviewed -08/08/2020 no significant improvement in patient kidney function. - 08/09/2020; patient seen kidney function continues to worsen. Patient was seen in consultation by nephrology recommended for patient to undergo renal biopsy on 08/12/2020. Patient will be kept off Eliquis and kept in the hospital the meantime whilst monitoring his kidney function 08/10/2020; patient kidney function continues to worsen. Biopsy has been planned for 08/12/2020 -08/11/2020. Patient immunological test with reflex panel was positive for JOLANTA screen and high titers for double-stranded DNA antibody and low complement C3 le vels. ?? Lupus nephritis. Did discuss with patient plan is for patient to follow-up with rheumatology as outpatient following her biopsy and endoscopic evaluation 2. Anemia - Secondary suspected to be secondary to anemia of chronic disorder, ordered iron studies. Patient was transfused 1 unit PRBC on 08/07/2020 with subsequent monitoring H&H and transfuse if patient becomes symptomatic or hemoglobin falls below 7. As part of his evaluation ordered iron studies and stool for guaiac -08/08/2020; patient states he had a negative colonoscopy in January. He has never had an EGD. He is to is guaiac positive. Plan is to consult general surgery for possible endoscopic evaluation - 08/08/2020. Hemoglobin up to 7.9 after being transfused with 1 unit PRBC. Consult was placed to general surgery for possible upper endoscopy given patient guaiac positive stools. Of note patient had a colonoscopy in [address] Terrazas found 3 polyps no malignancy. Did request for old records. ?08/09/2020 Hemoglobin down to 7.5.. Patient was also seen in consultation by Dr. Vazquez with general surgery plan is for patient to undergo outpatient upper EGD complete his work-up of anemia -08/10/2020; patient was seen in consultation by Dr. Mckeon with oncology. His notes and recommendations reviewed -08/11/2020. Hemoglobin down to 6.9 this a.m. plan is for patient to be transfused with 1 unit PRBC. Case was also discussed with Dr. Valentin with general surgery who is recommending upper endoscopic evaluation prior to patient being discharged from the hospital patient will be kept n.p.o. after midnight 3. Hypomagnesemia ?08/11/2020; magnesium level 1.1 to per protocol with subsequent serial monitoring of labs ordered 4. Diabetes mellitus type 2 Complications including hypoglycemia. Held patient oral agents placed on Accu- Cheks before meals and at bedtime with sliding scale coverage 5. Paroxysmal A. fib ?Rate controlled on amiodarone did continue also on systemic anticoagulation with rivaroxaban did continue -rivaroxaban held in view of patient significant anemia -08/10/2020; patient was seen in consultation by Dr. Blas the day prior 6. History of wide-complex tachycardia -Is on amiodarone 7. Essential hypertension Patient is on losartan in view of impaired kidney function losartan was held please on hydralazine as needed for systolic blood pressure greater than 160 8. Dyslipidemia -Patient is on statin therapy, continued at home dose 9. GERD ?On PPI 10. BPH -On tamsulosin 10. DVT prophylaxis ~ xarelto -08/07/2020; Xarelto held Inpatient E&M: [id number] [facility] L3
[2020-08-11] MEDS: Tamsulosin HCl 0.4 MG Capsule PO (08:50)
[2020-08-11] MEDS: Metoprolol Tartrate 50 MG Tablet PO ×2 (08:50→21:33)
[2020-08-11] MEDS: Pantoprazole Sodium 20 MG Tablet PO (08:51)
--- NOTE | 2020-08-11 08:59 | PN.SURG_ITS ---
Patient Problems: Active and Suspected Problems (Last Reviewed 01/22/20 @ 11:08 by Brittani Peoples) Acute renal injury (Acute) Anemia (Acute) Monoclonal gammopathy (Acute) Subjective: Patient not complaining of any further rectal bleeding. No abdominal pain. Objective: Abdomen is soft. - Physical Exam Vitals/I&O's: Vital Signs Temp Pulse Resp BP Pulse Ox 98.9 F 61 18 134/71 H 96 08/11/20 08:00 08/11/20 08:50 08/11/20 08:00 08/11/20 08:50 08/11/20 08:00 Oxygen Delivery Method Room Air Weight: 162 lb 2 oz Body Mass Index (BMI) 21.7 Finger Stick Blood Glucose 161 Intake and Output for Last 24 Hours 08/09/20 08/10/20 08/11/20 23:59 23:59 23:59 Intake Total 1801.25 / 1801.25 2552.5 / 2552.5 956.25 / 956.25 Output Total 2100 / 2100 900 / 2100 2400 / 2400 Balance -298.75 / -298.75 1652.5 / 452.5 -1443.75 / -1443.75 Microbiology Past 72 Hours 08/08/20 16:25 Stool Stool Occult Blood (SKYLER) - Final Laboratory Results 08/10/20 11:28: POC Glucose 304 H 08/10/20 16:43: POC Glucose 228 H 08/10/20 21:26: POC Glucose 122 H 08/11/20 05:10: WBC 5.0, RBC 2.14 L, Hgb 6.9 L, Hct 20.8 L, MCV 97.2 H, MCH 32.2 H, MCHC 33.2, RDW Std Deviation 52.1 H, RDW Coeff of Dano 14.7 H, Plt Count 94 L, MPV 12.4 H 08/11/20 05:10: Sodium 144, Potassium 3.8, Chloride 115 H, Carbon Dioxide 21.0, Anion Gap 8, BUN 63 H, Creatinine 7.14 H, Estim Creat Clear Calc 9.31, Est GFR (MDRD) Af Amer 10 L, Est GFR (MDRD) Non-Af 8 L, BUN/Creatinine Ratio 8.8 L, Glucose 109 H, Calcium 7.1 L, Magnesium 1.1 L 08/11/20 08:15: Blood Type Pending, Antibody Screen Pending, Crossmatch See Detail Current Medications Acetaminophen (Acetaminophen 325 Mg Tablet) 650 mg PO Q6H PRN PRN PRN Reason: Pain Score 1-10/Temp > 100.7 F Last Admin: 08/10/20 09:47 Dose: 650 mg Documented by: Albuterol Sulfate (Albuterol 2.5 Mg/3 Ml Vial.Neb.) 2.5 mg INHALATION Q2H PRN PRN PRN Reason: Dyspnea, wheezing Amiodarone HCl (Amiodarone 200 Mg Tablet) 200 mg PO DINNER [facility] Last Admin: 08/10/20 16:51 Dose: 200 mg Documented by: Guaifenesin (Guaifenesin 10 Ml Udc (200mg/10ml)) 20 ml PO Q4H PRN PRN PRN Reason: COUGH Hydralazine HCl (Hydralazine 20 Mg/Ml Vial) 10 mg IV Q4H PRN PRN PRN Reason: SBP > 160 Sodium Chloride () 1,000 mls @ 75 mls/hr IV .[id number] [facility] Last Admin: 08/11/20 02:14 Dose: 75 mls/hr Documented by: Magnesium Sulfate 2 gm/ Sodium (Chloride) 104 mls @ 52 mls/hr IV X1 ONE Stop: 08/11/20 09:37 Insulin Human Lispro (Insulin Lispro 100 Unit/Ml Insuln.Pen) 0 unit SC [facility]; Protocol Last Admin: 08/11/20 06:31 Dose: Not Given Documented by: Melatonin (Melatonin 3 Mg Tablet) 3 mg PO QHS PRN PRN PRN Reason: INSOMNIA Metoprolol Tartrate (Metoprolol Tartrate 50 Mg Tablet) 50 mg PO BID [facility] Last Admin: 08/11/20 08:50 Dose: 50 mg Documented by: Nitroglycerin (Nitroglycerin (Inpatient Use) 0.4 Mg Tab.Subl) 0.4 mg SUBLINGUAL Q5M PRN PRN Reason: CARDIAC/CHEST PAIN Ondansetron HCl (Ondansetron 4 Mg/2 Ml Vial) 4 mg IV Q8H PRN PRN PRN Reason: NAUSEA/VOMITING Last Admin: 08/10/20 12:49 Dose: 4 mg Documented by: Pantoprazole Sodium (Pantoprazole Sodium 20 Mg Tablet) 20 mg PO DAILY [facility] Last Admin: 08/11/20 08:51 Dose: 20 mg Documented by: Pravastatin Sodium (Pravastatin 20 Mg Tablet) 20 mg PO QHS [facility] Last Admin: 08/10/20 21:28 Dose: 20 mg Documented by: Prochlorperazine Edisylate (Prochlorperazine 10 Mg/2 Ml Vial) 5 mg IV Q4H PRN PRN PRN Reason: Breakthrough nausea/vomiting Psyllium Hydrophilic Mucilloid (Psyllium 1 Packet) 1 packet PO DAILY PRN PRN PRN Reason: Constipation Senna/Docusate Sodium (Senna/Docusate Sodium 1 Tablet) 2 tablet PO BID PRN PRN PRN Reason: Constipation Sodium Bicarbonate (Sodium Bicarbonate 650 Mg Tablet) 1,300 mg PO 4X/DAY [facility] Last Admin: 08/10/20 21:28 Dose: 1,300 mg Documented by: Sodium Chloride (0.9% Saline Lock 10 Ml Syringe) 10 - 40 ml IV UD PRN PRN Reason: SALINE FLUSH Last Admin: 08/10/20 12:49 Dose: 10 ml Documented by: Tamsulosin HCl (Tamsulosin Hcl 0.4 Mg Capsule) 0.4 mg PO DAILY [facility] Last Admin: 08/11/20 08:50 Dose: 0.4 mg Documented by: Medical Necessity - Tobacco Use Smoking Status: Never smoker Tobacco Use: Non-smoker Assessment/Plan All Active Problems (Last Reviewed 01/22/20 @ 11:08 by Brittani Peoples) Acute renal injury (Acute) Anemia (Acute) Monoclonal gammopathy (Acute) SOB (shortness of breath) (Acute) Acute renal injury (Acute) Acute bacterial prostatitis (Resolved) Bacteremia due to Gram-negative bacteria (Resolved) Biloma following surgery (Resolved) Gangrene of gallbladder (Resolved) Hypoalbuminemia (Resolved) Hypokalemia (Resolved) Hypomagnesemia (Resolved) Severe sepsis (Resolved) Thrombocytopenia (Resolved) Patient will be undergoing a renal biopsy on Wednesday will discuss doing an upper endoscopy with Dr. Hoover on Wednesday as well unsure if patient will be able to tolerate both of them at the same day. In addition the patient is also going to need to have dialysis on Wednesday so unsure if this can be all be accomplished on Wednesday. OBSV E&M: 78401 Subsequent observation care L2
[2020-08-11] MEDS: Sodium Bicarbonate 650 MG Tablet 1300 MG PO ×4 (09:00→21:33)
[2020-08-11 11:30] LABS: Bedside Glucose 341 mg/dL (70-110)
[2020-08-11] MEDS: Insulin Lispro 100 UNIT/ML INSULN.PEN SC ×3 (12:25→21:30)
[2020-08-11 17:20] LABS: Bedside Glucose 191 mg/dL (70-110)
[2020-08-11] MEDS: Amiodarone 200 MG Tablet PO (17:39)
--- NOTE | 2020-08-11 18:44 | PN.RENAL_ITS ---
Patient Problems: Active and Suspected Problems (Last Reviewed 01/22/20 @ 11:08 by Brittani Peoples) Acute renal injury (Acute) Anemia (Acute) Monoclonal gammopathy (Acute) Subjective: Following for acute kidney injury. The patient denies chest pain or shortness of breath at rest. Appetite remains poor. He has loose bowel movement but this is also improving. - Physical Exam Vitals/I&O's: Vital Signs Temp Pulse Resp BP Pulse Ox 98.4 F 64 18 149/74 H 98 08/11/20 17:00 08/11/20 18:00 08/11/20 17:00 08/11/20 17:00 08/11/20 17:00 Oxygen Delivery Method Room Air Weight: 73.539 kg Body Mass Index (BMI) 21.7 Finger Stick Blood Glucose 161 Intake and Output for Last 24 Hours 08/09/20 08/10/20 08/11/20 23:59 23:59 23:59 Intake Total 1801.25 / 1801.25 2552.5 / 2552.5 3040.25 / 3040.25 Output Total 2100 / 2100 900 / 2100 2400 / 2400 Balance -298.75 / -298.75 1652.5 / 452.5 640.25 / 640.25 General: Alert, Oriented x3 HEENT: Atraumatic, Normocephalic Oral: Moist Mucosa Neck: Supple Lungs: Clear to auscultation Cardiovascular: Normal S1, Normal S2, No murmurs Abdomen: Bowel Sounds Present, Soft, Non Tender Extremities: No edema Microbiology Past 72 Hours 08/08/20 16:25 Stool Stool Occult Blood (SKYLER) - Final Laboratory Results 08/07/20 08:40: Crossmatch See Detail 08/10/20 21:26: POC Glucose 122 H 08/11/20 05:10: WBC 5.0, RBC 2.14 L, Hgb 6.9 L, Hct 20.8 L, MCV 97.2 H, MCH 32.2 H, MCHC 33.2, RDW Std Deviation 52.1 H, RDW Coeff of Dano 14.7 H, Plt Count 94 L, MPV 12.4 H 08/11/20 05:10: Sodium 144, Potassium 3.8, Chloride 115 H, Carbon Dioxide 21.0, Anion Gap 8, BUN 63 H, Creatinine 7.14 H, Estim Creat Clear Calc 9.31, Est GFR (MDRD) Af Amer 10 L, Est GFR (MDRD) Non-Af 8 L, BUN/Creatinine Ratio 8.8 L, Glucose 109 H, Calcium 7.1 L, Magnesium 1.1 L 08/11/20 08:15: Blood Type A POSITIVE, Antibody Screen NEGATIVE, Crossmatch See Detail 08/11/20 11:24: POC Glucose 341 H 08/11/20 17:14: POC Glucose 191 H Current Medications Acetaminophen (Acetaminophen 325 Mg Tablet) 650 mg PO Q6H PRN PRN PRN Reason: Pain Score 1-10/Temp > 100.7 F Last Admin: 08/10/20 09:47 Dose: 650 mg Documented by: Albuterol Sulfate (Albuterol 2.5 Mg/3 Ml Vial.Neb.) 2.5 mg INHALATION Q2H PRN PRN PRN Reason: Dyspnea, wheezing Amiodarone HCl (Amiodarone 200 Mg Tablet) 200 mg PO DINNER COUNTS INCLUDE 234 BEDS AT THE [facility] Last Admin: 08/11/20 17:39 Dose: 200 mg Documented by: Guaifenesin (Guaifenesin 10 Ml Udc (200mg/10ml)) 20 ml PO Q4H PRN PRN PRN Reason: COUGH Hydralazine HCl (Hydralazine 20 Mg/Ml Vial) 10 mg IV Q4H PRN PRN PRN Reason: SBP > 160 Sodium Chloride () 1,000 mls @ 75 mls/hr IV .[id number] COUNTS INCLUDE 234 BEDS AT THE [facility] Last Admin: 08/11/20 17:41 Dose: 75 mls/hr Documented by: Insulin Human Lispro (Insulin Lispro 100 Unit/Ml Insuln.Pen) 0 unit [facility]; Protocol Last Admin: 08/11/20 17:38 Dose: 1 u Documented by: Melatonin (Melatonin 3 Mg Tablet) 3 mg PO QHS PRN PRN PRN Reason: INSOMNIA Metoprolol Tartrate (Metoprolol Tartrate 50 Mg Tablet) 50 mg PO BID COUNTS INCLUDE 234 BEDS AT THE [facility] Last Admin: 08/11/20 08:50 Dose: 50 mg Documented by: Nitroglycerin (Nitroglycerin (Inpatient Use) 0.4 Mg Tab.Subl) 0.4 mg SUBLINGUAL Q5M PRN PRN Reason: CARDIAC/CHEST PAIN Ondansetron HCl (Ondansetron 4 Mg/2 Ml Vial) 4 mg IV Q8H PRN PRN PRN Reason: NAUSEA/VOMITING Last Admin: 08/10/20 12:49 Dose: 4 mg Documented by: Pantoprazole Sodium (Pantoprazole Sodium 20 Mg Tablet) 20 mg PO DAILY COUNTS INCLUDE 234 BEDS AT THE [facility] Last Admin: 08/11/20 08:51 Dose: 20 mg Documented by: Pravastatin Sodium (Pravastatin 20 Mg Tablet) 20 mg PO QHS COUNTS INCLUDE 234 BEDS AT THE [facility] Last Admin: 08/10/20 21:28 Dose: 20 mg Documented by: Prochlorperazine Edisylate (Prochlorperazine 10 Mg/2 Ml Vial) 5 mg IV Q4H PRN PRN PRN Reason: Breakthrough nausea/vomiting Psyllium Hydrophilic Mucilloid (Psyllium 1 Packet) 1 packet PO DAILY PRN PRN PRN Reason: Constipation Senna/Docusate Sodium (Senna/Docusate Sodium 1 Tablet) 2 tablet PO BID PRN PRN PRN Reason: Constipation Sodium Bicarbonate (Sodium Bicarbonate 650 Mg Tablet) 1,300 mg PO 4X/DAY COUNTS INCLUDE 234 BEDS AT THE [facility] Last Admin: 08/11/20 17:42 Dose: 1,300 mg Documented by: Sodium Chloride (0.9% Saline Lock 10 Ml Syringe) 10 - 40 ml IV UD PRN PRN Reason: SALINE FLUSH Last Admin: 08/10/20 12:49 Dose: 10 ml Documented by: Tamsulosin HCl (Tamsulosin Hcl 0.4 Mg Capsule) 0.4 mg PO DAILY COUNTS INCLUDE 234 BEDS AT THE [facility] Last Admin: 08/11/20 08:50 Dose: 0.4 mg Documented by: Medical Necessity - Tobacco Use Smoking Status: Never smoker Tobacco Use: Non-smoker Assessment/Plan All Active Problems (Last Reviewed 01/22/20 @ 11:08 by Brittani Peoples) Acute renal injury (Acute) Anemia (Acute) Monoclonal gammopathy (Acute) SOB (shortness of breath) (Acute) Acute renal injury (Acute) Acute bacterial prostatitis (Resolved) Bacteremia due to Gram-negative bacteria (Resolved) Biloma following surgery (Resolved) Gangrene of gallbladder (Resolved) Hypoalbuminemia (Resolved) Hypokalemia (Resolved) Hypomagnesemia (Resolved) Severe sepsis (Resolved) Thrombocytopenia (Resolved) Assessment: JAKOB?possible dense ATN vs AIN but at this time etiology unclear Hyperkalemia?resolved Hypomagnesemia Metabolic acidosis MGUS JOLANTA positive Proteinuria 356 mg per 24 hour collection Nephrolithiasis Renal cyst Anemia Diabetes mellitus Plan: Sodium is 147 so agree with continuing hypotonic fluids for now. The patient does not appear to be volume overloaded. Continue p.o. sodium bicarbonate. Serum bicarbonate level is stable. Agree with holding losartan. JOLANTA positive and antidouble-stranded DNA positive. Scheduled for renal biopsy on Wednesday08/12/2020. Will need rheumatology outpatient consult scheduled upon discharge as inpatient rheumatology is not available. Major risks and benefits of renal biopsy was discussed with the patient by Dr. Brower on 08/09/2020. Patient agrees to proceed with renal biopsy on Wednesday. Unfortunately, serum creatinine is continuing to rise. He will likely need dialysis by Wednesday or Wednesday. We will consult surgery for tunneled dialysis catheter tomorrow. There is no immediate need for dialysis today since he is not uremic, hyperkalemic or severely acidotic. There is no signs of volume overload either. Recheck renal function again tomorrow.
[2020-08-11 21:31] LABS: Bedside Glucose 112 mg/dL (70-110)
[2020-08-11] MEDS: Pravastatin 20 MG Tablet PO (21:33)
[2020-08-11 21:50] LABS: Bedside Glucose 213 mg/dL (70-110)
[2020-08-12] VITALS (31 sets, daily range): BP systolic 100–167; BP diastolic 46–74; PULSE 46–104; RESP 12–18; TEMP 36.2–36.9; O2SAT 14–100; BMI 22.6; BMI 22.3
--- NOTE | 2020-08-12 | KID_PTH ---
PATIENT: MALI MARTIN LOC: MS3 U#:[id number] AGE/SX: 74/M ROOM: [facility] [place] RE08/05/[address]: Dr. Chelsie Cárdenas MD : 1945 BED: 1 DIS: 08/16/2020 SPEC #: [id number] RECD: 08/12/20 10:49 STATUS: MELINDA REQ #: [id number] MERLE: 08/12/20 00:[address]: Mumtaz Brower DEPT: SURGICAL PATHOLOGY RECD BY: Alison Cuba ENTERED: 08/12/20 11:51 SP TYPE: KIDNEY OTHR DR: MD Dr. Olivia Briseno MD Dr. Ghasem E Ashelfah, MD Dr. John Prokop, MD Dr. Paul Masci, DO Dr. Paul Moodispaw, MD Dr. Tamera Robotham, MD Tissues: Kidney, NOS Procedures: Electron Microscopy (ACH) Fluorescent Antibody (ACH) Sp St Grp II Kidney (ACH) Kidney Biopsy (ACH) Fluorescent antibody (ACH) add'l Comments: @ Ordering doctor for NETTIE edited from to @ by RGOOD at 08/12/20 1235 @ Submitting doctor edited from to @ by RGOOD at 08/12/20 1235 HEADER OPERATION: CT-guided right renal biopsy PRE-OP DIAGNOSIS: Acute kidney injury TISSUE SUBMITTED: Right renal biopsy 18-gauge x4 MICROSCOPIC DIAGNOSIS Kidney, needle biopsy: Acute tubular necrosis. Tubulointerstitial nephritis with associated intratubular crystals, consistent with oxalate crystals. Moderate interstitial fibrosis and tubular atrophy. COMMENT Taken together, the histologic and immunofluorescence findings are indicative of a tubulointerstitial process which has both acute tubular and mild tubulointerstitial nephritis. In the absence of other underlying etiologies, the presence of oxalate crystals can explain these histologic findings. There is no evidence of a monoclonal process on immunofluorescence. Clinical correlation is recommended. MICROSCOPIC DESCRIPTION A needle biopsy is available for review. There are approximately 21 glomeruli present on of which is globally sclerotic. Glomeruli show no evidence of crescent formation, segmental scars, necrosis, thrombosis or inflammation. Some of the glomeruli have a mildly distended Tejeda's space. PAS, Ceja silver and trichrome stains show no evidence of glomerular basement membrane double contours, spikes or fuchsinophilic immune-type deposits. Trichrome highlights moderate interstitial fibrosis and tubular atrophy. The interstitium shows mild to focally moderate interstitial inflammation, predominantly composed of lymphocytes. Tubules show large, birefringent crystals, consistent with oxalate crystals. Tubular epithelium shows disruption and sloughing of cells, indicative of acute tubular necrosis. Scattered tubules also contain hyaline casts which retain dark staining on PAS. Arteries and arterioles show moderate arterio- and arteriolosclerosis, respectively. A Congo Red stain for amyloid is negative. IMMUNOFLUORESCENCE: The tissue submitted for immunofluorescence studies contains six glomeruli, one of which is globally sclerotic. IgA, IgM, and kappa and lambda light chains show staining in casts. There is no light chain restriction appreciated. IgG, C3, C1q, albumin and fibrinogen all show nonspecific staining. ELECTRON MICROSCOPY: The tissue submitted for electron microscopy studies contains eight glomeruli, one of which is globally sclerotic. Three glomeruli are imaged. The glomerular capillary loops are relatively patent. The glomerular basement membranes are of approximately normal caliber. There is poor preservation of the visceral epithelial foot processes, although in some areas, effacement is appreciated. The degree of effacement is not possible to quantitate due to the poor preservation. No electron-dense immune-type deposits are seen. Some tubules show thinning and damage. GROSS DESCRIPTION The specimen is sent entirely to [facility] for diagnosis. Received within transport media labeled with the patient's name and kidney biopsy are four cores of tanpink soft tissue, ranging in size from 0.2 to 1.4 cm in length. Tissue is submitted fresh for immunofluorescence, in glutaraldehyde for electron microscopy, and the remaining in formalin for light microscopy.
[2020-08-12 05:34] LABS: Hematocrit 24.9 % (40-54); Hemoglobin 8.3 g/dL (13.0-16.5); Mean Corp Hgb Conc 33.3 g/dL (32-36); Mean Corpuscular Hgb 31.7 pg (27.0-32.0); Mean Platelet Vol. 12.1 fl (6.2-12.0); Platelet Count 106 K/mm3 (150-450); RBC Distribution Width CV 16.3 % (11.6-14.6); RBC Distribution Width SD 56.9 fl (35.1-43.9); Red Blood Count 2.62 M/mm3 (4.6-6.2); White Blood Count 5.9 K/mm3 (4.4-11.0)
[2020-08-12 05:43] LABS: International Normalized Ratio 1.2; Prothrombin Time (Protime)PT. 14.6 SECONDS (11.7-14.9)
[2020-08-12 05:44] LABS: Partial Thromboplast Time 28.9 Seconds (24.1-36.2)
[2020-08-12] MEDS: 0.45% Normal Saline 1,000 ML 75 ML IV ×2 (05:57→12:27)
[2020-08-12 06:04] LABS: Anion Gap 8 (5-15); BUN 62 mg/dL (7-18); BUN/Creat Ratio 8.9 RATIO (10-20); Calcium,Total 7.4 mg/dL (8.5-10.1); Chloride 112 mmol/L (98-107); Creatinine, Serum 6.99 mg/dL (0.70-1.30); EST Glomerular Filtration Rate 8 mL/min (>60); Est Glom Filt Rate - Afr Amer 10 mL/min (>60); Estimated Creatinine Clearance 9.51 ml/min; Glucose 153 mg/dL (74-106); Potassium 3.8 mmol/L (3.5-5.1); Sodium Level 143 mmol/L (136-145)
[2020-08-12 06:05] LABS: Bedside Glucose 147 mg/dL (70-110)
--- NOTE | 2020-08-12 06:16 | NURSING ---
report called to Noreen in [facility]. made Rn aware pt does not have order for consent yet. will bring pt down at 0630.
--- NOTE | 2020-08-12 06:42 | CT_ITS ---
PROCEDURE: CT GUIDED PERCUTANEOUS KIDNEY BIOPSY. DATE: 08/12/2020 INDICATION: Male, 74 years old. Acute renal failure. PHYSICIAN: Stanton Betancourt M.D. MEDICATIONS: 1 mg of VERSED and 25 mcg of FENTANYL intravenously. Conscious sedation was started at 10:25 AM and terminated at 10:40 AM the patient was independently monitored by the department nurse. ACCESS SITE: Lower pole of the right kidney. NEEDLE: 18-gauge core biopsy needle. SPECIMEN: 4 core biopsies EBL: None. COMPLICATIONS: None immediate. RADIATION DOSAGE (If Supplied By Facility): CTDIvol = ( 16.5 ) mGy, DLP = ( 343.16 ) mGycm The risks, benefits, and alternatives to the procedure and sedation were explained to the patient. The specific risk of hemorrhage requiring further treatment or intervention was detailed and accepted. Written informed consent was obtained. The patient was placed on the CT table in the prone position. Multiple axial images were obtained from the lung base through the caudal extent of the kidneys. An appropriate entry site was identified and a olesya made on the skin. The skin overlying the [ right] posterior flank was prepped and draped in sterile fashion. 1% lidocaine was administered subcutaneously for local anesthesia. Initially, a 22 gauge needle was advanced and CT images confirmed good needle position. The 22 gauge needle was then exchanged for an 17 gauge introducer needle which was advanced. Repeat CT images confirmed good needle trajectory and tip position. The introducer needle was then advanced into the periphery of the inferior renal pole, and CT images were again obtained to confirm exact tip location. The inner stylet of the introducer needle was then removed and an 18 gauge coaxial needle was advanced thru the introducer needle and biopsy performed. A total of [4 ] passes were performed and the specimen collected was sent to Pathology for further evaluation. The needle was withdrawn. Hemostasis was achieved with manual compression and a sterile dressing was applied. Repeat CT images of the biopsy area was performed which demonstrated no gross bleeding or hematoma. The patient tolerated the procedure well without immediate complications. The patient was transported to the [floor/recovery area] in stable condition. CT/Biopsy/Inj or Needle Placement IMPRESSION: Successful CT guided percutaneous kidney biopsy. Electronically Signed: Stanton Betancourt MD at 11:09 EST , Service support ,
--- NOTE | 2020-08-12 07:50 | IMM_PTH ---
PATIENT: MALI MARTIN LOC: MS3 U#:[id number] AGE/SX: 74/M ROOM: [place] RE08/05/[address]: Dr. Chelsie Cárdenas MD : 1945 BED: 1 DIS: 08/16/2020 SPEC #: [id number] RECD: 08/12/20 12:32 STATUS: MELINDA REQ #: [id number] MERLE: 08/12/20 07:[address]: Ana Rosa Mcleod DEPT: IMMUNOHISTOCHEMISTRY RECD BY: Minerva Varela ENTERED: 08/12/20 12:33 SP TYPE: IMMUNO OTHR DR: MD Dr. Olivia Briseno MD Dr. Ghasem E Ashelfah, MD Dr. John Prokop, MD Dr. Paul Masci, DO Dr. Paul Moodispaw, MD Tissues: A - Stomach, NOS Procedures: H Pylori (initial) PHYSICIAN & [address] [address] SPECIMEN INFORMATION: Tissue Source: A - Antrum biopsy Clinical Info: Jojo Specimen Number: [id number] CPT code: 30557 METHODOLOGY: Deparaffinized sections of prefer/formalin-fixed tissue or PAP/DQ stained slides are incubated with monoclonal/polyclonal antibodies/oligonucleotide probes. Localization is made via biotin free immunoperoxidase method. Appropriate controls are performed and reacted as expected. Results on target cell population are indicated in the following table: RESULTS: ANTIBODY / CLONE RESULT Block A H Pylori (polyclonal) negative These tests were developed and their performance characteristics determined by [facility]. They may not have been cleared or approved by the U.S. Food and Drug Administration. The FDA has determined that such clearance or approval is not necessary. INTERPRETATION: A. Antrum, biopsy: Negative for Helicobacter pylori organisms. ALBERT:lina 08/14/2020
--- NOTE | 2020-08-12 08:14 | OP.EGD_ITS ---
Patient Name: Guanakito Gamboa Procedure Date: 08/12/2020 7:36 AM Date of : 1945 Age: 74 Procedure: Upper GI endoscopy Indications: Iron deficiency anemia Providers: Ana Rosa Mcleod MD Medicines: Monitored Anesthesia Care Patient Profile: This is a 74 year old male. Complications: No immediate complications. Procedure: Pre-Anesthesia Assessment: - Prior to the procedure, a History and Physical was performed, and patient medications and allergies were reviewed. The patient's tolerance of previous anesthesia was also reviewed. The risks and benefits of the procedure and the sedation options and risks were discussed with the patient. All questions were answered, and informed consent was obtained. Prior Anticoagulants: The patient has taken Xarelto (rivaroxaban), last dose was 5 days prior to procedure. ASA Grade Assessment: Per anesthesia. After reviewing the risks and benefits, the patient was deemed in satisfactory condition to undergo the procedure. After obtaining informed consent, the endoscope was passed under direct vision. Throughout the procedure, the patient's blood pressure, pulse, and oxygen saturations were monitored continuously. The Endoscope was introduced through the mouth, and advanced to the second part of duodenum. The upper GI endoscopy was accomplished without difficulty. The patient tolerated the procedure well. Scope In: 7:45:51 AM Scope Out: 8:05:00 AM Total Procedure Duration Time 0 hours 19 minutes 9 seconds Findings: The Z-line was variable and was found 42 cm from the incisors. Biopsies were taken with a cold forceps for histology. The examined duodenum was normal. The cardia and gastric fundus were normal on retroflexion. Multiple 3 to 8 mm pedunculated and sessile polyps with no bleeding and no stigmata of recent bleeding were found in the gastric body. The larger 3 polyps were removed with a hot snare. Resection and retrieval were complete. Biopsies were taken with a cold forceps for histology. Mildly erythematous mucosa without bleeding was found in the gastric antrum. Biopsies were taken with a cold forceps for histology. Biopsies were taken with a cold forceps for Helicobacter pylori cultures. Impression: - Z-line variable, 42 cm from the incisors. Biopsied. - Normal examined duodenum. - Multiple gastric polyps. Resected and retrieved-3 larger polyps. Biopsied. - Erythematous mucosa in the antrum. Biopsied. Recommendation: - Resume anticoagulant at prior dose per medicine. [Management]. Procedure Code(s): --- Professional --- 96287, Esophagogastroduodenoscopy, flexible, transoral; with removal of tumor(s), polyp(s), or other lesion(s) by snare technique 52004, 59, Esophagogastroduodenoscopy, flexible, transoral; with biopsy, single or multiple Diagnosis Code(s): --- Professional --- K22.8, Other specified diseases of esophagus K31.7, Polyp of stomach and duodenum K31.89, Other diseases of stomach and duodenum D50.9, Iron deficiency anemia, unspecified CPT copyright 2017 [employer]. All rights reserved. The codes documented in this report are preliminary and upon workers compensation analyst review may be revised to meet current compliance requirements. MD Ana Rosa Emanuel MD 08/12/2020 8:13:58 AM This report has been signed electronically. Number of Addenda: 0 Note Initiated On: 08/12/2020 7:36 AM
--- NOTE | 2020-08-12 08:14 | OP.CCLET_ITS ---
08/12/2020 Guanakito Quarles Md Re : Upper GI endoscopy procedure for Guanakito Gamboa Angellar Robina This procedure was performed on Wednesday, August 12, 2020. My impressions and recommendations are as follows: Impressions : - Z-line variable, 42 cm from the incisors. Biopsied. - Normal examined duodenum. - Multiple gastric polyps. Resected and retrieved-3 larger polyps. Biopsied. - Erythematous mucosa in the antrum. Biopsied. Recommendations : - Resume anticoagulant at prior dose per medicine. [Management]. My findings are described in the full procedure note, which is enclosed. If I can be of further assistance, please feel free to contact me at Doctor phone number(s): , Work: . Sincerely, MD Ana Rosa Emanuel MD 08/12/2020 8:13:58 AM This report has been signed electronically.
--- NOTE | 2020-08-12 09:00 | RAD_ITS ---
STUDY: X-RAY BONE SURVEY COMPLETE REASON FOR EXAM: Male, 74 years old. WORK UP FOR MULTIPLE MYELOMA TECHNIQUE: 25 views of the axial/appendicular skeleton. COMPARISON: None. FINDINGS: No acute fracture, dislocation or osseous destruction. Osteopenia. Scattered mild/moderate osteoarthritic changes at the cervical spine, thoracic spine, lumbar spine, right ankle, bilateral knees and hips. No acute soft tissue process. Vascular calcifications. RAD/Bone Survey Comp(Axial&Append) IMPRESSION: No destructive bone lesions identified Mild/moderate scattered osteoarthritic changes Electronically Signed: Dima Gibson DO at 10:01 EST Tel , Service support ,
--- NOTE | 2020-08-12 09:12 | PN_ITS ---
Patient Problems: Active and Suspected Problems (Last Reviewed 01/22/20 @ 11:08 by Brittani Peoples) Acute renal injury (Acute) Anemia (Acute) Monoclonal gammopathy (Acute) Subjective: Chief complaint: Follow-up after admission for acute renal failure, acute on chronic anemia. Patient seen and examined. No acute events overnight. He denies any significant complaints apart from frequency, no dysuria. No other complaints. Blood pressure and heart rate are stable, afebrile, pulse ox is maintained on room air. - Physical Exam Vitals/I&O's: Vital Signs Temp Pulse Resp BP Pulse Ox 97.5 F L 71 16 149/69 H 98 08/12/20 08:57 08/12/20 08:57 08/12/20 08:57 08/12/20 08:57 08/12/20 08:57 Oxygen Delivery Method Room Air Weight: 162 lb 5 oz Body Mass Index (BMI) 22.6 Finger Stick Blood Glucose 161 Intake and Output for Last 24 Hours 08/10/20 08/11/20 08/12/20 23:59 23:59 23:59 Intake Total 2552.5 / 2552.5 3040.25 / 3040.25 920 / 920 Output Total 900 / 2100 3100 / 3100 2275 / 2275 Balance 1652.5 / 452.5 -59.75 / -59.75 -1355 / -1355 General: Alert, Oriented x3, Cooperative, No apparent distress HEENT: Atraumatic, PERRLA, EOMI, Normocephalic Oral: Moist Mucosa, No Gingival or Mucosal Lesions/ Ulcerations Neck: Supple, No JVD, Negative Carotid Bruits, Trachea Midline, Thyroid Normal Size and Texture Lungs: Clear to auscultation, Normal air movement, No rhonchi, No wheeze, No rales Cardiovascular: Regular rate, Regular Rhythm, Normal S1, Normal S2, PMI Normal Abdomen: Bowel Sounds Present, Soft, Non Tender, Non-Distended, No Hepato- splenomegaly Extremities: No clubbing, No cyanosis, No edema Skin: No rashes, No breakdown Lymphatic: No Cervical, Supraclavicular, or Inguinal Adenopathy Neurological: Cranial nerves II-XII grossly intact, Motor Exam 5/5 strength throughout Psych/Mental Status: Normal Affect, Appropriate, Alert and oriented to time, place, person, mood and affect Microbiology Past 72 Hours 08/12/20 06:45 Interface Orders SARS-CoV-2 Antigen (Rapid) - Final Laboratory Results 08/07/20 08:40: Crossmatch See Detail 08/11/20 06:30: POC Glucose 112 H 08/11/20 08:15: Blood Type A POSITIVE, Antibody Screen NEGATIVE, Crossmatch See Detail 08/11/20 11:24: POC Glucose 341 H 08/11/20 17:14: POC Glucose 191 H 08/11/20 21:29: POC Glucose 213 H 08/12/20 05:10: PT 14.6, INR 1.2, APTT 28.9 08/12/20 05:10: WBC 5.9, RBC 2.62 L, Hgb 8.3 L, Hct 24.9 L, MCV 95.0 H, MCH 31.7, MCHC 33.3, RDW Std Deviation 56.9 H, RDW Coeff of Dano 16.3 H, Plt Count 106 L, MPV 12.1 H 08/12/20 05:10: Sodium 143, Potassium 3.8, Chloride 112 H, Carbon Dioxide 23.0, Anion Gap 8, BUN 62 H, Creatinine 6.99 H, Estim Creat Clear Calc 9.51, Est GFR (MDRD) Af Amer 10 L, Est GFR (MDRD) Non-Af 8 L, BUN/Creatinine Ratio 8.9 L, Glucose 153 H, Calcium 7.4 L 08/12/20 05:56: POC Glucose 147 H Current Medications Acetaminophen (Acetaminophen 325 Mg Tablet) 650 mg PO Q6H PRN PRN PRN Reason: Pain Score 1-10/Temp > 100.7 F Last Admin: 08/10/20 09:47 Dose: 650 mg Documented by: Albuterol Sulfate (Albuterol 2.5 Mg/3 Ml Vial.Neb.) 2.5 mg INHALATION Q2H PRN PRN PRN Reason: Dyspnea, wheezing Amiodarone HCl (Amiodarone 200 Mg Tablet) 200 mg PO DINNER [facility] Last Admin: 08/11/20 17:39 Dose: 200 mg Documented by: Fentanyl Citrate (Fentanyl 100 Mcg/2 Ml Ampul) 25 - 50 mcg IV UD PRN PRN Reason: Procedural Pain Control Stop: 08/12/20 23:59 Guaifenesin (Guaifenesin 10 Ml Udc (200mg/10ml)) 20 ml PO Q4H PRN PRN PRN Reason: COUGH Hydralazine HCl (Hydralazine 20 Mg/Ml Vial) 10 mg IV Q4H PRN PRN PRN Reason: SBP > 160 Sodium Chloride () 1,000 mls @ 75 mls/hr IV .[id number] [facility] Last Admin: 08/12/20 05:57 Dose: 75 mls/hr Documented by: Sodium Chloride () 500 mls @ 15 mls/hr IV .[id number] [facility] Stop: 08/12/20 23:59 Insulin Human Lispro (Insulin Lispro 100 Unit/Ml Insuln.Pen) 0 unit SC [facility]; Protocol Last Admin: 08/12/20 05:58 Dose: Not Given Documented by: Melatonin (Melatonin 3 Mg Tablet) 3 mg PO QHS PRN PRN PRN Reason: INSOMNIA Metoprolol Tartrate (Metoprolol Tartrate 50 Mg Tablet) 50 mg PO BID [facility] Last Admin: 08/11/20 21:33 Dose: 50 mg Documented by: Midazolam HCl (Midazolam 2 Mg/2 Ml Syringe) 1 - 2 mg IV UD PRN PRN Reason: Procedural Sedation Stop: 08/12/20 23:59 Nitroglycerin (Nitroglycerin (Inpatient Use) 0.4 Mg Tab.Subl) 0.4 mg SUBLINGUAL Q5M PRN PRN Reason: CARDIAC/CHEST PAIN Ondansetron HCl (Ondansetron 4 Mg/2 Ml Vial) 4 mg IV Q8H PRN PRN PRN Reason: NAUSEA/VOMITING Last Admin: 08/10/20 12:49 Dose: 4 mg Documented by: Pantoprazole Sodium (Pantoprazole Sodium 20 Mg Tablet) 20 mg PO DAILY [facility] Last Admin: 08/11/20 08:51 Dose: 20 mg Documented by: Pravastatin Sodium (Pravastatin 20 Mg Tablet) 20 mg PO QHS [facility] Last Admin: 08/11/20 21:33 Dose: 20 mg Documented by: Prochlorperazine Edisylate (Prochlorperazine 10 Mg/2 Ml Vial) 5 mg IV Q4H PRN PRN PRN Reason: Breakthrough nausea/vomiting Psyllium Hydrophilic Mucilloid (Psyllium 1 Packet) 1 packet PO DAILY PRN PRN PRN Reason: Constipation Senna/Docusate Sodium (Senna/Docusate Sodium 1 Tablet) 2 tablet PO BID PRN PRN PRN Reason: Constipation Sodium Bicarbonate (Sodium Bicarbonate 650 Mg Tablet) 1,300 mg PO 4X/DAY [facility] Last Admin: 08/11/20 21:33 Dose: 1,300 mg Documented by: Sodium Chloride (0.9% Saline Lock 10 Ml Syringe) 10 - 40 ml IV UD PRN PRN Reason: SALINE FLUSH Last Admin: 08/10/20 12:49 Dose: 10 ml Documented by: Tamsulosin HCl (Tamsulosin Hcl 0.4 Mg Capsule) 0.4 mg PO DAILY [facility] Last Admin: 08/11/20 08:50 Dose: 0.4 mg Documented by: Medical Necessity - Tobacco Use Smoking Status: Never smoker Tobacco Use: Non-smoker Assessment/Plan All Active Problems (Last Reviewed 01/22/20 @ 11:08 by Brittani Peoples) Acute renal injury (Acute) Anemia (Acute) Monoclonal gammopathy (Acute) This is a 74 years old male patient was referred to the ED by his PCPs office for abnormal blood work and he was found to have acute renal failure and acute on chronic anemia, has been having extensive work-up and he is going for CT- guided kidney biopsy today. #1 acute renal failure: Unclear etiology, could be due to ATN. Patient is on IV fluids, on p.o. sodium bicarb. Kidney function has been almost the same compared to yesterday, minimal improvement. Patient does have polyuria. No evidence of obstructive uropathy on CT scan abdomen and pelvis, nonobstructive kidney stones. renal artery duplex reviewed. Nephrology on the case. Double- stranded DNA and JOLANTA were positive. Patient went for CT-guided kidney biopsy today. He may need to be started on dialysis. Will wait for nephrology recommendation about dialysis today. #2 acute on chronic anemia/thrombocytopenia: Patient received total of 2 months of packed RBCs, today's hemoglobin is 8.3 g/dL. Platelet count today is 106,000, improving. No active bleeding. INR is 1.2. He had upper EGD today that showed gastric polyps, erythematous antral mucosa, no active bleeding. Already on Protonix. He was evaluated by oncology, recommended CT-guided bone marrow biopsy. Protein electrophoresis and kappa lambda light chains are pending. Plan to monitor, repeat CBC and BMP tomorrow morning. #3 hypomagnesemia: Serum magnesium is still low. Potassium is back to normal. It was elevated. Plan to replace magnesium as appropriate, repeat serum magnesium tomorrow morning. #4 type 2 diabetes mellitus: Blood sugar stable, continue sliding scale and Accu-Cheks. Metformin, glimepiride and sitagliptin are on hold. #5 paroxysmal atrial fibrillation: Heart rate stable, continue metoprolol for rate control, Xarelto held because patient went for CT-guided biopsy today. #6 history of wide-complex tachycardia: Stable, rate controlled, blood pressure stable, continue amiodarone. #7 hypertension: Blood pressure stable, continue metoprolol, keep holding losartan because of acute renal failure. #8 GERD: Continue PPI. #9 benign prostatic hypertrophy: Continue Flomax. #10 hyperlipidemia: Continue statins. #11 DVT prophylaxis: SCDs. This note was generated with Cover dictation software. It may contain incorrect words, spelling, and punctuation that were not noted in checking the note before signing. Inpatient E&M: 63809 Subs Hosp L3
[2020-08-12] MEDS: Midazolam 2 MG/2 ML Syringe IV (10:23)
[2020-08-12] MEDS: fentaNYL 100 MCG/2 ML Ampul IV (10:25)
[2020-08-12 12:07] LABS: Albumin, Ur 41.6 % (.); Alpha-2-Globulins, Ur 16.3 % (.); Beta Globulin, Ur 14.6 % (.); Gamma Globulin, Ur 25.5 % (.); M-Spike, Ur % Not Observed % (Not Observed); Protein, 24Ur 127 mg/24 hr (30-150); Total Protein, Ur 4.5 mg/dL (Not Estab.)
[2020-08-12] MEDS: 0.9% Saline Lock 10 ML Syringe IV ×2 (12:26→15:37)
[2020-08-12] MEDS: Magnesium Sulfate 4gm/100mL 4 GM/100 ML IV.SOLN. IV (12:32)
[2020-08-12 12:50] LABS: Bedside Glucose 134 mg/dL (70-110)
--- NOTE | 2020-08-12 13:50 | PCM.PN.REN ---
Patient Problems: Active and Suspected Problems (Last Updated 08/12/20 @ 11:[address] Chelsie Cárdenas MD) Acute renal injury (Acute) Anemia (Acute) Monoclonal gammopathy (Acute) Subjective: no c/o no cp/sob no gross hematuria - Physical Exam Vitals/I&O's: Vital Signs Temp Pulse Resp BP Pulse Ox 97.7 F L 48 L 16 141/57 H 97 08/12/20 12:29 08/12/20 12:29 08/12/20 12:29 08/12/20 12:29 08/12/20 12:29 Oxygen Delivery Method [4] Room Air Oxygen Delivery Method [3] Room Air Oxygen Delivery Method [2] Room Air Oxygen Delivery Method [1 ( Room Air Initial Baseline)] Oxygen Delivery Method Room Air Weight: 72.575 kg Body Mass Index (BMI) 22.3 Finger Stick Blood Glucose 161 Intake and Output for Last 24 Hours 08/10/20 08/11/20 08/12/20 23:59 23:59 23:59 Intake Total 2552.5 / 2552.5 3040.25 / 3040.25 1407.5 / 1407.5 Output Total 900 / 2100 3100 / 3100 2275 / 2275 Balance 1652.5 / 452.5 -59.75 / -59.75 -867.5 / -867.5 General: Alert, Cooperative HEENT: Atraumatic Oral: Moist Mucosa Neck: Supple Lungs: Clear to auscultation, Normal air movement Cardiovascular: Normal S1, Normal S2 Abdomen: Bowel Sounds Present, Soft, Non Tender Extremities: No edema Microbiology Past 72 Hours 08/12/20 06:45 Interface Orders SARS-CoV-2 Antigen (Rapid) - Final Laboratory Results 08/11/20 06:30: POC Glucose 112 H 08/11/20 08:15: Crossmatch See Detail 08/11/20 17:14: POC Glucose 191 H 08/11/20 21:29: POC Glucose 213 H 08/12/20 05:10: PT 14.6, INR 1.2, APTT 28.9 08/12/20 05:10: WBC 5.9, RBC 2.62 L, Hgb 8.3 L, Hct 24.9 L, MCV 95.0 H, MCH 31.7, MCHC 33.3, RDW Std Deviation 56.9 H, RDW Coeff of Dano 16.3 H, Plt Count 106 L, MPV 12.1 H 08/12/20 05:10: Sodium 143, Potassium 3.8, Chloride 112 H, Carbon Dioxide 23.0, Anion Gap 8, BUN 62 H, Creatinine 6.99 H, Estim Creat Clear Calc 9.51, Est GFR (MDRD) Af Amer 10 L, Est GFR (MDRD) Non-Af 8 L, BUN/Creatinine Ratio 8.9 L, Glucose 153 H, Calcium 7.4 L 08/12/20 05:56: POC Glucose 147 H 08/12/20 12:07: POC Glucose 134 H Current Medications Acetaminophen (Acetaminophen 325 Mg Tablet) 650 mg PO Q6H PRN PRN PRN Reason: Pain Score 1-10/Temp > 100.7 F Last Admin: 08/10/20 09:47 Dose: 650 mg Documented by: Albuterol Sulfate (Albuterol 2.5 Mg/3 Ml Vial.Neb.) 2.5 mg INHALATION Q2H PRN PRN PRN Reason: Dyspnea, wheezing Amiodarone HCl (Amiodarone 200 Mg Tablet) 200 mg PO DINNER [facility] Last Admin: 08/11/20 17:39 Dose: 200 mg Documented by: Fentanyl Citrate (Fentanyl 100 Mcg/2 Ml Ampul) 25 - 50 mcg IV UD PRN PRN Reason: Procedural Pain Control Stop: 08/12/20 23:59 Last Admin: 08/12/20 10:25 Dose: 25 mcg Documented by: Guaifenesin (Guaifenesin 10 Ml Udc (200mg/10ml)) 20 ml PO Q4H PRN PRN PRN Reason: COUGH Hydralazine HCl (Hydralazine 20 Mg/Ml Vial) 10 mg IV Q4H PRN PRN PRN Reason: SBP > 160 Sodium Chloride () 1,000 mls @ 75 mls/hr IV .[id number] [facility] Last Admin: 08/12/20 12:27 Dose: 75 mls/hr Documented by: Sodium Chloride () 500 mls @ 15 mls/hr IV .[id number] [facility] Stop: 08/12/20 23:59 Last Admin: 08/12/20 11:57 Dose: Not Given Documented by: Magnesium Sulfate () 4 gm in 100 mls @ 25 mls/hr IV X1 ONE Stop: 08/12/20 16:14 Last Admin: 08/12/20 12:32 Dose: 25 mls/hr Documented by: Insulin Human Lispro (Insulin Lispro 100 Unit/Ml Insuln.Pen) 0 unit SC ACHS [facility]; Protocol Last Admin: 08/12/20 12:08 Dose: Not Given Documented by: Magnesium Chloride (Magnesium Chloride 64 Mg Delay Rel.Tablet) 128 mg PO BID [facility] Melatonin (Melatonin 3 Mg Tablet) 3 mg PO QHS PRN PRN PRN Reason: INSOMNIA Metoprolol Tartrate (Metoprolol Tartrate 50 Mg Tablet) 50 mg PO BID [facility] Last Admin: 08/12/20 12:42 Dose: Not Given Documented by: Midazolam HCl (Midazolam 2 Mg/2 Ml Syringe) 1 - 2 mg IV UD PRN PRN Reason: Procedural Sedation Stop: 08/12/20 23:59 Last Admin: 08/12/20 10:23 Dose: 1 mg Documented by: Nitroglycerin (Nitroglycerin (Inpatient Use) 0.4 Mg Tab.Subl) 0.4 mg SUBLINGUAL Q5M PRN PRN Reason: CARDIAC/CHEST PAIN Ondansetron HCl (Ondansetron 4 Mg/2 Ml Vial) 4 mg IV Q8H PRN PRN PRN Reason: NAUSEA/VOMITING Last Admin: 08/10/20 12:49 Dose: 4 mg Documented by: Pantoprazole Sodium (Pantoprazole Sodium 20 Mg Tablet) 20 mg PO DAILY [facility] Last Admin: 08/11/20 08:51 Dose: 20 mg Documented by: Pravastatin Sodium (Pravastatin 20 Mg Tablet) 20 mg PO QHS [facility] Last Admin: 08/11/20 21:33 Dose: 20 mg Documented by: Prochlorperazine Edisylate (Prochlorperazine 10 Mg/2 Ml Vial) 5 mg IV Q4H PRN PRN PRN Reason: Breakthrough nausea/vomiting Psyllium Hydrophilic Mucilloid (Psyllium 1 Packet) 1 packet PO DAILY PRN PRN PRN Reason: Constipation Senna/Docusate Sodium (Senna/Docusate Sodium 1 Tablet) 2 tablet PO BID PRN PRN PRN Reason: Constipation Sodium Bicarbonate (Sodium Bicarbonate 650 Mg Tablet) 1,300 mg PO 4X/DAY [facility] Last Admin: 08/11/20 21:33 Dose: 1,300 mg Documented by: Sodium Chloride (0.9% Saline Lock 10 Ml Syringe) 10 - 40 ml IV UD PRN PRN Reason: SALINE FLUSH Last Admin: 08/12/20 12:26 Dose: 10 ml Documented by: Tamsulosin HCl (Tamsulosin Hcl 0.4 Mg Capsule) 0.4 mg PO DAILY [facility] Last Admin: 08/11/20 08:50 Dose: 0.4 mg Documented by: Medical Necessity - Tobacco Use Smoking Status: Never smoker Tobacco Use: Non-smoker Assessment/Plan All Active Problems (Last Updated 08/12/20 @ 11:[address] Chelsie Cárdenas MD) Acute renal injury (Acute) Anemia (Acute) Monoclonal gammopathy (Acute) JAKOB?possible dense ATN vs AIN but at this time etiology unclear Hyperkalemia?resolved Metabolic acidosis-NAG MGUS JOLANTA positive Proteinuria 356 mg per 24 hour collection Nephrolithiasis Renal cyst Anemia Diabetes mellitus Scr 6.99 Continue p.o. bicarb agree with holding losartan cardiology Dr. Blas to see him today or Wednesday for management of anticoagulation post renal biopsy. Ideally would hold DOAC or warfarin for 7 days post renal biopsy. xarelto last dose on 08/06 bp ok JOLANTA positive and antidouble-stranded DNA positive renal biopsy on Wednesday. Will need rheumatology outpatient consult scheduled upon discharge as inpatient rheumatology is not available. for TDC in am then HD SW for HD unit placement Avoid nephrotoxins
[2020-08-12] MEDS: Tamsulosin HCl 0.4 MG Capsule PO (15:37)
[2020-08-12] MEDS: Pantoprazole Sodium 20 MG Tablet PO (15:37)
[2020-08-12] MEDS: Sodium Bicarbonate 650 MG Tablet 1300 MG PO ×2 (15:38→21:47)
[2020-08-12 16:08] LABS: Free Kappa Light Chains 82.6 mg/L (3.3-19.4); Free Lambda Light Chains 45.1 mg/L (5.7-26.3)
[2020-08-12 16:19] LABS: IFE Result, Ur Comment: (.)
[2020-08-12] MEDS: Insulin Lispro 100 UNIT/ML INSULN.PEN SC ×2 (18:08→21:48)
[2020-08-12] MEDS: Amiodarone 200 MG Tablet PO (18:10)
[2020-08-12] MEDS: Magnesium Chloride 64 MG Delay Rel.Tablet 128 MG PO (21:47)
[2020-08-12] MEDS: Metoprolol Tartrate 50 MG Tablet PO (21:48)
[2020-08-12] MEDS: Pravastatin 20 MG Tablet PO (21:48)
[2020-08-12 21:55] LABS: Bedside Glucose 256 mg/dL (70-110)
[2020-08-13] VITALS (16 sets, daily range): BP systolic 130–148; BP diastolic 56–80; PULSE 54–109; RESP 15–18; TEMP 36.6–37.2; O2SAT 97–99; BMI 23.3
[2020-08-13 00:16] LABS: Bedside Glucose 254 mg/dL (70-110)
[2020-08-13 05:52] LABS: Hematocrit 24.5 % (40-54); Hemoglobin 8.1 g/dL (13.0-16.5); Mean Corp Hgb Conc 33.1 g/dL (32-36); Mean Corpuscular Hgb 31.2 pg (27.0-32.0); Mean Corpuscular Volume 94.2 fL (80-94); Mean Platelet Vol. 10.9 fl (6.2-12.0); Platelet Count 111 K/mm3 (150-450); RBC Distribution Width CV 15.9 % (11.6-14.6); RBC Distribution Width SD 54.8 fl (35.1-43.9); White Blood Count 5.7 K/mm3 (4.4-11.0)
[2020-08-13 06:14] LABS: Anion Gap 6 (5-15); BUN 62 mg/dL (7-18); BUN/Creat Ratio 8.8 RATIO (10-20); Calcium,Total 7.8 mg/dL (8.5-10.1); Chloride 111 mmol/L (98-107); Creatinine, Serum 7.02 mg/dL (0.70-1.30); EST Glomerular Filtration Rate 8 mL/min (>60); Est Glom Filt Rate - Afr Amer 10 mL/min (>60); Estimated Creatinine Clearance 9.68 ml/min; Glucose 205 mg/dL (74-106); Magnesium 2.5 mg/dL (1.6-2.6); Potassium 4.1 mmol/L (3.5-5.1); Sodium Level 142 mmol/L (136-145)
[2020-08-13] MEDS: Insulin Lispro 100 UNIT/ML INSULN.PEN SC ×3 (06:28→21:45)
[2020-08-13 06:40] LABS: Bedside Glucose 203 mg/dL (70-110)
[2020-08-13 07:54] LABS: Hemoglobin A1c 6.6 % (3.8-5.6)
--- NOTE | 2020-08-13 08:33 | PCM.PN.SRG ---
Patient Problems: Active and Suspected Problems (Last Updated 08/12/20 @ 11:[address] Chelsie Cárdenas MD) Acute renal injury (Acute) Anemia (Acute) Monoclonal gammopathy (Acute) Subjective: Patient had some questions about the tunneled dialysis catheter procedure today. - Physical Exam Vitals/I&O's: Vital Signs Temp Pulse Resp BP Pulse Ox 98.4 F 58 L 16 130/66 H 97 08/13/20 06:37 08/13/20 07:50 08/13/20 06:37 08/13/20 06:37 08/13/20 06:37 Oxygen Delivery Method [4] Room Air Oxygen Delivery Method [3] Room Air Oxygen Delivery Method [2] Room Air Oxygen Delivery Method [1 ( Room Air Initial Baseline)] Oxygen Delivery Method Room Air Weight: 167 lb 5.294 oz Body Mass Index (BMI) 22.3 Finger Stick Blood Glucose 161 Intake and Output for Last 24 Hours 08/11/20 08/12/20 08/13/20 23:59 23:59 23:59 Intake Total 3040.25 / 3040.25 1757.5 / 2623.75 866.25 / 866.25 Output Total 3100 / 3100 2275 / 3775 2200 / 2200 Balance -59.75 / -59.75 -517.5 / -1151.25 -1333.75 / -1333.75 General: Alert, Oriented x3, Cooperative, No apparent distress Neck: Supple Lungs: Normal air movement Cardiovascular: Regular rate Abdomen: Soft, Non Tender, Non-Distended Microbiology Past 72 Hours 08/12/20 06:45 Interface Orders SARS-CoV-2 Antigen (Rapid) - Final Laboratory Results 08/07/20 15:30: Ur Total Protein 24 Hr 127, Urine Total Protein 4.5, Urine Albumin 41.6, U Kkhfb-0-Fogbdnnu 2.0, U Ldeuv-7-Emigpakn 16.3, U Beta Globulin 14.6, U Gamma Globulin 25.5, U PEP M-[place]ent[place] Not Observed, U PEP M-[place] 24 Hr TNP, Urine Immunofixation Comment:, Ur Immunofix PEP Note Comment 08/10/20 06:42: Free [place] LC, Quant 82.6 H, Free Lambda LC, Quant 45.1 H, Free [place]/Lambda Ratio 1.83 H 08/12/20 12:07: POC Glucose 134 H 08/12/20 17:10: POC Glucose 254 H 08/12/20 21:44: POC Glucose 256 H 08/13/20 05:46: WBC 5.7, RBC 2.60 L, Hgb 8.1 L, Hct 24.5 L, MCV 94.2 H, MCH 31.2, MCHC 33.1, RDW Std Deviation 54.8 H, RDW Coeff of Dano 15.9 H, Plt Count 111 L, MPV 10.9 08/13/20 05:46: Sodium 142, Potassium 4.1, Chloride 111 H, Carbon Dioxide 25.0, Anion Gap 6, BUN 62 H, Creatinine 7.02 H, Estim Creat Clear Calc 9.68, Est GFR (MDRD) Af Amer 10 L, Est GFR (MDRD) Non-Af 8 L, BUN/Creatinine Ratio 8.8 L, Glucose 205 H, Calcium 7.8 L, Magnesium 2.5 08/13/20 05:46: Hemoglobin A1c 6.6 H 08/13/20 06:26: POC Glucose 203 H Current Medications Acetaminophen (Acetaminophen 325 Mg Tablet) 650 mg PO Q6H PRN PRN PRN Reason: Pain Score 1-10/Temp > 100.7 F Last Admin: 08/10/20 09:47 Dose: 650 mg Documented by: Albuterol Sulfate (Albuterol 2.5 Mg/3 Ml Vial.Neb.) 2.5 mg INHALATION Q2H PRN PRN PRN Reason: Dyspnea, wheezing Amiodarone HCl (Amiodarone 200 Mg Tablet) 200 mg PO DINNER [facility] Last Admin: 08/12/20 18:10 Dose: 200 mg Documented by: Guaifenesin (Guaifenesin 10 Ml Udc (200mg/10ml)) 20 ml PO Q4H PRN PRN PRN Reason: COUGH Hydralazine HCl (Hydralazine 20 Mg/Ml Vial) 10 mg IV Q4H PRN PRN PRN Reason: SBP > 160 Sodium Chloride () 1,000 mls @ 75 mls/hr IV .[id number] [facility] Last Admin: 08/13/20 00:00 Dose: 75 mls/hr Documented by: Cefazolin Sodium 2 gm/ Sodium (Chloride) 110 mls @ 150 mls/hr IV X1 ONE Stop: 08/13/20 09:11 Insulin Human Lispro (Insulin Lispro 100 Unit/Ml Insuln.Pen) 0 unit SC [facility]; Protocol Last Admin: 08/13/20 06:28 Dose: 1 u Documented by: Magnesium Chloride (Magnesium Chloride 64 Mg Delay Rel.Tablet) 128 mg PO BID [facility] Last Admin: 08/12/20 21:47 Dose: 128 mg Documented by: Melatonin (Melatonin 3 Mg Tablet) 3 mg PO QHS PRN PRN PRN Reason: INSOMNIA Metoprolol Tartrate (Metoprolol Tartrate 50 Mg Tablet) 50 mg PO BID [facility] Last Admin: 08/12/20 21:48 Dose: 50 mg Documented by: Nitroglycerin (Nitroglycerin (Inpatient Use) 0.4 Mg Tab.Subl) 0.4 mg SUBLINGUAL Q5M PRN PRN Reason: CARDIAC/CHEST PAIN Ondansetron HCl (Ondansetron 4 Mg/2 Ml Vial) 4 mg IV Q8H PRN PRN PRN Reason: NAUSEA/VOMITING Last Admin: 08/10/20 12:49 Dose: 4 mg Documented by: Pantoprazole Sodium (Pantoprazole Sodium 20 Mg Tablet) 20 mg PO DAILY [facility] Last Admin: 08/12/20 15:37 Dose: 20 mg Documented by: Pravastatin Sodium (Pravastatin 20 Mg Tablet) 20 mg PO QHS [facility] Last Admin: 08/12/20 21:48 Dose: 20 mg Documented by: Prochlorperazine Edisylate (Prochlorperazine 10 Mg/2 Ml Vial) 5 mg IV Q4H PRN PRN PRN Reason: Breakthrough nausea/vomiting Psyllium Hydrophilic Mucilloid (Psyllium 1 Packet) 1 packet PO DAILY PRN PRN PRN Reason: Constipation Senna/Docusate Sodium (Senna/Docusate Sodium 1 Tablet) 2 tablet PO BID PRN PRN PRN Reason: Constipation Sodium Bicarbonate (Sodium Bicarbonate 650 Mg Tablet) 1,300 mg PO 4X/DAY [facility] Last Admin: 08/12/20 21:47 Dose: 1,300 mg Documented by: Sodium Chloride (0.9% Saline Lock 10 Ml Syringe) 10 - 40 ml IV UD PRN PRN Reason: SALINE FLUSH Last Admin: 08/12/20 15:37 Dose: 10 ml Documented by: Tamsulosin HCl (Tamsulosin Hcl 0.4 Mg Capsule) 0.4 mg PO DAILY [facility] Last Admin: 08/12/20 15:37 Dose: 0.4 mg Documented by: Medical Necessity - Tobacco Use Smoking Status: Never smoker Tobacco Use: Non-smoker Assessment/Plan All Active Problems (Last Updated 08/12/20 @ 11:[address] Chelsie Cárdenas MD) Acute renal injury (Acute) Anemia (Acute) Monoclonal gammopathy (Acute) 74-year-old male with anemia, acute kidney injury 1. We will plan to do insertion of right possible left tunneled dialysis catheter in about noon today. Discussed the procedure along with risk including but not limited to bleeding, infection, injury to vessel, malfunction of the catheter, and anesthesia. Patient no further question at this time. Patient's Covid test was negative from yesterday Ana Rosa Mcleod M.D. Pager: [phone] [facility] [address] [place] [address], [facility], [address] [place] [address] Office: [phone]
--- NOTE | 2020-08-13 10:01 | PN_ITS ---
Patient Problems: Active and Suspected Problems (Last Updated 08/12/20 @ 11:[address] Chelsie Cárdeans MD) Acute renal injury (Acute) Anemia (Acute) Monoclonal gammopathy (Acute) Subjective: Chief complaint: Follow-up after admission for acute renal failure, acute on chronic anemia. Patient seen and examined. No acute events overnight. Today, he denied any complaints. His vital signs are stable. He is going for placement of tunneled dialysis catheter today. - Physical Exam Vitals/I&O's: Vital Signs Temp Pulse Resp BP Pulse Ox 98.4 F 63 15 148/64 H 97 08/13/20 08:31 08/13/20 08:31 08/13/20 08:31 08/13/20 08:31 08/13/20 08:31 Oxygen Delivery Method [4] Room Air Oxygen Delivery Method [3] Room Air Oxygen Delivery Method [2] Room Air Oxygen Delivery Method [1 ( Room Air Initial Baseline)] Oxygen Delivery Method Room Air Weight: 167 lb 5.294 oz Body Mass Index (BMI) 23.3 Finger Stick Blood Glucose 161 Intake and Output for Last 24 Hours 08/11/20 08/12/20 08/13/20 23:59 23:59 23:59 Intake Total 3040.25 / 3040.25 1757.5 / 2623.75 866.25 / 866.25 Output Total 3100 / 3100 2275 / 3775 2200 / 2200 Balance -59.75 / -59.75 -517.5 / -1151.25 -1333.75 / -1333.75 General: Alert, Oriented x3, Cooperative, No apparent distress HEENT: Atraumatic, PERRLA, EOMI, Normocephalic Oral: Moist Mucosa, No Gingival or Mucosal Lesions/ Ulcerations Neck: Supple, No JVD, Negative Carotid Bruits, Trachea Midline, Thyroid Normal Size and Texture Lungs: Clear to auscultation, Normal air movement, No rhonchi, No wheeze, No rales, Diminished Cardiovascular: Regular rate, Regular Rhythm, Normal S1, Normal S2, PMI Normal Abdomen: Bowel Sounds Present, Soft, Non Tender, Non-Distended, No Hepato-splenomegaly Extremities: No clubbing, No cyanosis, No edema Skin: No rashes, No breakdown Lymphatic: No Cervical, Supraclavicular, or Inguinal Adenopathy Neurological: Cranial nerves II-XII grossly intact, Neuro grossly intact Psych/Mental Status: Normal Affect, Appropriate Microbiology Past 72 Hours 08/12/20 06:45 Interface Orders SARS-CoV-2 Antigen (Rapid) - Final Laboratory Results 08/07/20 15:30: Ur Total Protein 24 Hr 127, Urine Total Protein 4.5, Urine Albumin 41.6, U Lytpz-3-Kbekiuwc 2.0, U Pqtom-4-Iebzpybq 16.3, U Beta Globulin 14.6, U Gamma Globulin 25.5, U PEP M-Ventura Not Observed, U PEP M-[place] 24 Hr TNP, Urine Immunofixation Comment:, Ur Immunofix PEP Note Comment 08/10/20 06:42: Free [place] LC, Quant 82.6 H, Free Lambda LC, Quant 45.1 H, Free [place]/Lambda Ratio 1.83 H 08/12/20 12:07: POC Glucose 134 H 08/12/20 17:10: POC Glucose 254 H 08/12/20 21:44: POC Glucose 256 H 08/13/20 05:46: WBC 5.7, RBC 2.60 L, Hgb 8.1 L, Hct 24.5 L, MCV 94.2 H, MCH 31.2, MCHC 33.1, RDW Std Deviation 54.8 H, RDW Coeff of Dano 15.9 H, Plt Count 111 L, MPV 10.9 08/13/20 05:46: Sodium 142, Potassium 4.1, Chloride 111 H, Carbon Dioxide 25.0, Anion Gap 6, BUN 62 H, Creatinine 7.02 H, Estim Creat Clear Calc 9.68, Est GFR (MDRD) Af Amer 10 L, Est GFR (MDRD) Non-Af 8 L, BUN/Creatinine Ratio 8.8 L, Glucose 205 H, Calcium 7.8 L, Magnesium 2.5 08/13/20 05:46: Hemoglobin A1c 6.6 H 08/13/20 06:26: POC Glucose 203 H Current Medications Acetaminophen (Acetaminophen 325 Mg Tablet) 650 mg PO Q6H PRN PRN PRN Reason: Pain Score 1-10/Temp > 100.7 F Last Admin: 08/10/20 09:47 Dose: 650 mg Documented by: Albuterol Sulfate (Albuterol 2.5 Mg/3 Ml Vial.Neb.) 2.5 mg INHALATION Q2H PRN PRN PRN Reason: Dyspnea, wheezing Amiodarone HCl (Amiodarone 200 Mg Tablet) 200 mg PO [facility] Last Admin: 08/12/20 18:10 Dose: 200 mg Documented by: Guaifenesin (Guaifenesin 10 Ml Udc (200mg/10ml)) 20 ml PO Q4H PRN PRN PRN Reason: COUGH Hydralazine HCl (Hydralazine 20 Mg/Ml Vial) 10 mg IV Q4H PRN PRN PRN Reason: SBP > 160 Sodium Chloride () 1,000 mls @ 75 mls/hr IV .[id number] [facility] Last Admin: 08/13/20 00:00 Dose: 75 mls/hr Documented by: Cefazolin Sodium 2 gm/ Sodium (Chloride) 110 mls @ 150 mls/hr IV X1 ONE Stop: 08/13/20 11:43 Insulin Human Lispro (Insulin Lispro 100 Unit/Ml Insuln.Pen) 0 unit SC [facility]; Protocol Last Admin: 08/13/20 06:28 Dose: 1 u Documented by: Magnesium Chloride (Magnesium Chloride 64 Mg Delay Rel.Tablet) 128 mg PO BID [facility] Last Admin: 08/12/20 21:47 Dose: 128 mg Documented by: Melatonin (Melatonin 3 Mg Tablet) 3 mg PO QHS PRN PRN PRN Reason: INSOMNIA Metoprolol Tartrate (Metoprolol Tartrate 50 Mg Tablet) 50 mg PO BID [facility] Last Admin: 08/12/20 21:48 Dose: 50 mg Documented by: Nitroglycerin (Nitroglycerin (Inpatient Use) 0.4 Mg Tab.Subl) 0.4 mg SUBLINGUAL Q5M PRN PRN Reason: CARDIAC/CHEST PAIN Ondansetron HCl (Ondansetron 4 Mg/2 Ml Vial) 4 mg IV Q8H PRN PRN PRN Reason: NAUSEA/VOMITING Last Admin: 08/10/20 12:49 Dose: 4 mg Documented by: Pantoprazole Sodium (Pantoprazole Sodium 20 Mg Tablet) 20 mg PO DAILY [facility] Last Admin: 08/12/20 15:37 Dose: 20 mg Documented by: Pravastatin Sodium (Pravastatin 20 Mg Tablet) 20 mg PO QHS [facility] Last Admin: 08/12/20 21:48 Dose: 20 mg Documented by: Prochlorperazine Edisylate (Prochlorperazine 10 Mg/2 Ml Vial) 5 mg IV Q4H PRN PRN PRN Reason: Breakthrough nausea/vomiting Psyllium Hydrophilic Mucilloid (Psyllium 1 Packet) 1 packet PO DAILY PRN PRN PRN Reason: Constipation Senna/Docusate Sodium (Senna/Docusate Sodium 1 Tablet) 2 tablet PO BID PRN PRN PRN Reason: Constipation Sodium Bicarbonate (Sodium Bicarbonate 650 Mg Tablet) 1,300 mg PO 4X/DAY [facility] Last Admin: 08/12/20 21:47 Dose: 1,300 mg Documented by: Sodium Chloride (0.9% Saline Lock 10 Ml Syringe) 10 - 40 ml IV UD PRN PRN Reason: SALINE FLUSH Last Admin: 08/12/20 15:37 Dose: 10 ml Documented by: Tamsulosin HCl (Tamsulosin Hcl 0.4 Mg Capsule) 0.4 mg PO DAILY [facility] Last Admin: 08/12/20 15:37 Dose: 0.4 mg Documented by: Medical Necessity - Tobacco Use Smoking Status: Never smoker Tobacco Use: Non-smoker Assessment/Plan All Active Problems (Last Updated 08/12/20 @ 11:[address] Chelsie Cárdenas MD) Acute renal injury (Acute) Anemia (Acute) Monoclonal gammopathy (Acute) This is a 74 years old male patient was referred to the ED by his PCPs office for abnormal blood work and he was found to have acute renal failure and acute on chronic anemia, has been having extensive work-up and he is going for CT- guided kidney biopsy today. #1 acute renal failure: Unclear etiology, could be due to ATN. Patient is on IV fluids, on p.o. sodium bicarb. Today's BUN is 62, creatinine is 7.02, almost the same as yesterday, no improvement. Patient does have polyuria. No evidence of obstructive uropathy on CT scan abdomen and pelvis, nonobstructive kidney stones. renal artery duplex reviewed. Nephrology on the case. Double-stranded DNA and JOLANTA were positive. CT-guided kidney biopsy done yesterday, biopsy histopathology result is pending. Plan for placement of tunneled dialysis catheter today and then plan to start hemodialysis. #2 acute on chronic anemia/thrombocytopenia: Patient received total of 2 months of packed RBCs, today's hemoglobin is 8.1 g/dL. Platelet count today is 111,000, improving. No active bleeding. INR is 1.2. He had upper EGD today that showed gastric polyps, erythematous antral mucosa, no active bleeding. Already on Protonix. He was evaluated by oncology, recommended CT-guided bone marrow biopsy. Protein electrophoresis and kappa lambda light chains are pending. Plan to monitor. #3 hypomagnesemia: Magnesium replaced and corrected, today's magnesium is 2.5. #4 type 2 diabetes mellitus: Blood sugar stable, continue sliding scale and Accu-Cheks. Metformin, glimepiride and sitagliptin are on hold. #5 paroxysmal atrial fibrillation: Heart rate stable, continue metoprolol for rate control, Xarelto held because patient went for CT-guided biopsy today. #6 history of wide-complex tachycardia: Stable, rate controlled, blood pressure stable, continue amiodarone. #7 hypertension: Blood pressure stable, continue metoprolol, keep holding losartan because of acute renal failure. #8 GERD: Continue PPI. #9 benign prostatic hypertrophy: Continue Flomax. #10 hyperlipidemia: Continue statins. #11 DVT prophylaxis: SCDs. This note was generated with [employer] dictation software. It may contain incorrect words, spelling, and punctuation that were not noted in checking the note before signing. Inpatient E&M: 97988 Subs Hosp L2
[2020-08-13 10:31] LABS: Bedside Glucose 233 mg/dL (70-110)
[2020-08-13] MEDS: Cefazolin 2 GM in 0.9% Normal Saline 100 ML IV (10:35)
[2020-08-13] MEDS: Bupiv/Epi 0.25% 30 ML Vial (10:49)
[2020-08-13] MEDS: Lidocaine 1% (20 ml mdv) 20 ML Vial (10:49)
[2020-08-13] MEDS: Heparin 10,000 UNITS/10 ML Vial 10000 UNITS (10:55)
--- NOTE | 2020-08-13 11:17 | PCM.OPRPT ---
Report of Operation Date of Procedure: 08/13/20 Pre-Operative Diagnosis: acute kidney failure Post-Operative Diagnosis: Same Surgery/Procedure Performed:: Insertion of a right internal jugular tunneled dialysis catheter Type of Anesthesia:: Local MAC Anesthesiologist: Dima Irvin Special Medications: Ancef 2 g IV x1 Specimen's removed: None Estimated Blood Loss (mL): < 10 cc Fluids Replaced: 500 cc Description of Procedure: After informed consent was given, the patient was brought to the operating room and placed in the supine position. Appropriate time out protocol was followed. The was then given IV conscious sedation for anesthesia. The patient's right upper chest and neck were then prepped with a surgical skin preparation and sterile surgical drapes were placed. After proper landmarks were ascertained, the skin at the upper right chest area was then infiltrated with 1:1 mixture of 1% lidocaine with epinephrine and 0.5% maricaine. A needle trocar was then inserted into the right internal jugular vein with ultrasound guidance-multiple vessels were viewed with u/s and the right IJ was chosen-- and there was good aspiration of venous blood. A wire was then threaded into the needle trocar and this was visualized under fluoroscopy to ensure that the wire was in the superior vena cava. Once this was done, then the needle trocar was removed. A small incision was made with an 11 blade knife at the wire entrance site. The dilator x2 with the introducer sheath attached was then placed over the wire into the right internal jugular vein via the Seldinger technique and this was visualized under fluoroscopy. Next the introducer and sheath were in proper position as visualized by fluoroscopy. The location of the cuffed was estimated on the skin, an incision was made with a 15 blade scalpel. The 14.5 Fr x 19 cm Palindrome dual lumen (Lot [id number] reference [id number]) was tunneled from the chest incision to the right neck incision. The sheath was removed. The catheter was placed through the introducer and was positioned with its tip at the junction of the superior vena cava and the right atrium as visualized under fluoroscopy. The cuff of the catheter was in the subcutaneous tissue. The catheter flushed and rosemary well with saline. Catheter was also flushed with 1.6 cc of 1-10,000 of heparin. Hemostasis was assured. Silver dressing was placed at the catheter exit site. Catheter was sutured with 3-0 nylon sutures. The neck incision was sutured with interrupted 3-0 Vicryl interrupted sutures x2 and Steri-Strips were placed. A large OpSite was placed over the catheter site and a small OpSite over the neck incision. The patient tolerated the procedure well. Grafts/Implants Used: 14.5 Fr x 19 cm Palindrome dual lumen (Lot [id number] reference [id number] - Complications none
--- NOTE | 2020-08-13 11:45 | RAD_ITS ---
STUDY: X-RAY CHEST REASON FOR EXAM: Male, 74 years old. Post op dialysis cath placement TECHNIQUE: Single AP portable view of the chest. COMPARISON: Comparison is made with prior chest radiograph dated 05/17/2019. FINDINGS: A right sided dialysis catheter has been placed. The tip is at the junction of the superior vena cava and right atrium. Stable blunting of the left costophrenic angle. Normal size heart. Normal mediastinum and yanely. Normal visualized pulmonary arteries. There is atherosclerotic tortuosity of the aortic arch and descending thoracic aorta. There are diffuse degenerative changes of the visualized thoracic spine. Normal visualized ribs, clavicles, and shoulders. There is no demonstrated abnormality of the visualized soft tissue structures of the upper abdomen. RAD/CXR for Line Placement IMPRESSION: The tip of the right dialysis catheter is at the junction of the superior vena cava and right atrium. Electronically Signed: Stanton Betancourt MD at 12:04 EST , Service support ,
[2020-08-13] MEDS: Magnesium Chloride 64 MG Delay Rel.Tablet 128 MG PO ×2 (13:00→21:43)
[2020-08-13] MEDS: Pantoprazole Sodium 20 MG Tablet PO (13:01)
[2020-08-13] MEDS: Acetaminophen 325 MG Tablet 650 MG PO ×2 (13:16→21:51)
[2020-08-13] MEDS: Tamsulosin HCl 0.4 MG Capsule PO (13:45)
[2020-08-13] MEDS: Metoprolol Tartrate 50 MG Tablet PO ×2 (14:52→21:44)
--- NOTE | 2020-08-13 16:25 | CASEMGMT ---
MAGGIE ESTES updated that patient will need outpatient HD setup. MAGGIE ESTES in to discuss outpatient HD setup with patient. Patient would like HD setup with [facility]. MAGGIE ESTES sent referral to [facility]. CM will continue to follow this patient and plan for a safe discharge.
[2020-08-13 17:26] LABS: Bedside Glucose 151 mg/dL (70-110)
[2020-08-13] MEDS: Amiodarone 200 MG Tablet PO (17:33)
[2020-08-13] MEDS: Sodium Bicarbonate 650 MG Tablet 1300 MG PO ×2 (17:33→21:44)
[2020-08-13] MEDS: oxyCODONE 5 MG Tablet PO (17:37)
[2020-08-13] MEDS: 0.9% Saline Lock 10 ML Syringe IV ×2 (18:54→21:51)
[2020-08-13] MEDS: 0.45% Normal Saline 1,000 ML 75 ML IV ×2 (21:46)
[2020-08-13 22:11] LABS: Bedside Glucose 166 mg/dL (70-110)
[2020-08-13] MEDS: Pravastatin 20 MG Tablet PO (23:08)
[2020-08-14] VITALS (25 sets, daily range): BP systolic 131–167; BP diastolic 58–74; PULSE 17–74; RESP 14–20; TEMP 36.6–37.6; O2SAT 94–100; BMI 24.5
--- NOTE | 2020-08-14 | BMB_PTH ---
PATIENT: MALI MARTIN LOC: MS3 U#:[id number] AGE/SX: 74/M ROOM: [id number] RE08/05/[address]: Dr. Chelsie Cárdenas MD : 1945 BED: 1 DIS: 08/16/2020 SPEC #: [id number] RECD: 08/14/20 09:00 STATUS: MELINDA SALINAS #: [id number] MERLE: 08/14/20 00:[address]: Blake Mckeon DEPT: BONE MARROW RECD BY: Alisia Marion ENTERED: 08/14/20 10:52 SP TYPE: BMB OTHR DR: MD Dr. Olivia Briseno MD Dr. Ghasem E Ashelfah, MD Dr. John Prokop, MD Dr. Paul Moodispaw, MD Dr. Tamera Robotham, MD Tissues: A - Bone marrow, NOS B - Bone marrow, NOS C - Bone marrow, NOS Procedures: Bone Marrow Aspiration Bone Marrow Core Biopsy Iron Stain Bone Marrow HEADER OPERATION: Bone marrow biopsy and aspiration PRE-OP DIAGNOSIS: Renal failure, monoclonal gammopathy, multiple myeloma TISSUE SUBMITTED: A - Core, B - Clot, C - Smears, and send outs (flow, cytogenetics) BONE MARROW DIAGNOSIS Bone marrow core, clot and aspirate smears: Normocellular marrow with trilineage hematopoiesis. Interstitial infiltrates of small lymphocytes and lymphoid aggregates, polytypic in nature. Iron - 3-4+, atypical or ring sideroblasts are not seen. Peripheral smear - normocytic anemia and thrombocytopenia. [facility] no evidence of a lymphoproliferative disorder or plasma cell neoplasm. Complete report is viewable in patient's EMR. Cytogenetic studies are pending at this time. See comment. SJ:lina 08/16/2020 COMMENT Immunohistochemistry ([id number]) supports the above diagnosis. Bone marrow clot shows interstitial infiltrate of a few plasma cells (~1-2%), polytypic in nature. Bone marrow core biopsy is noncontributory and consists only of blood clot. Case has been reviewed in consultation with Dr. Lord who concurs with the above diagnosis. IDC:AM BONE MARROW STUDY Slides are reviewed. CBC DATE: 08/14/20 WBC 6.5K; RBC 2.48; HGB 7.9; HCT 23.2; MCV 93.5; RDW 15.5; PLTS 75,000 SEGS 71.5%; LYMPHS 11.8%; MONOS 14.4%; EOS 1.5%; BASOS 0.3% PERIPHERAL SMEAR: Submitted. RBC: Normocytic anemia WBC: Unremarkable. The WBC count is compatible to as reported above. PLTS: Decreased BONE MARROW ASPIRATE DIFFERENTIAL: 200 cell count. Blasts % (normal 0-2): 0 Promyelocytes % (normal 1-5): 2 Myelocytes and metamyelocytes % (normal 17-41): 34 Bands and Segs % (normal 15-32): 40 Eos % (normal 1-6): 2 Basos % (normal 0-1): 0 Monocytes % (normal 0-4): 2 Erythroid Precursors % (normal 17-35): 11 Lymphocytes % (normal 7-13): 9 Plasma Cells % (normal 0-2): 0 ASPIRATE FINDINGS: Site: Not specified Paucispicular, Cellular M/E ratio: 7.0 (Normal 1.5-4.0) Megakaryocytes: Present and normal morphology. Erythropoiesis: Normoblastic. Granulopoiesis: Progressive and unremarkable. Comment: Myeloid hyperplasia is noted. Significant dysplastic changes are not seen. Rare mature plasma cells are noted. Mild hemodilution is also noted. CORE BIOPSY FINDINGS: Site: Not specified Comment: The specimen is noncontributory and entirely consists of blood clot. ASPIRATE CLOT FINDINGS: Site: Not specified Marrow particles: Numerous Cellularity: 30-40% M/E ratio: Myeloid hyperplasia is noted. Megakaryocytes: Present and slightly decreased in number. Granulomas: Absent. Lymphoid aggregates: Present Atypical infiltrates: Absent. Comment: Immunohistochemistry ([id number]) shows interstitial infiltrates of small lymphocytes and lymphoid aggregates, polytypic in nature. Interstitial infiltrates of a few plasma cells (~1-2%) are noted, polytypic in nature. SPECIAL STAINS WITH MATCHED CONTROLS: Iron: 3-4+, atypical or ring sideroblasts are not seen. Reticulin: No significant increase of reticulin fibers is noted. PAS: Highlights myeloid cells and megakaryocytes. BONE MARROW GROSS A - Received is a container labeled with the patient's name and designated bone marrow. The specimen consists of multiple irregular fragments of felder soft tissue that in aggregate measure 2 x 1.5 x 0.2 cm. The specimen is totally submitted in one cassette. B - Received labeled with the patient's name and designated bone marrow aspirate is a specimen that consists of approximately 10 cc of clotted blood that on filtration yields multiple irregular fragments of reddish-felder tissue measuring in aggregate 2.2 x 2 x 0.2 cm. The specimen is totally submitted in one cassette. C - Also received are 16 unstained and 1 peripheral stained slides. The unstained slides are submitted for appropriate staining. Also received is one green top tube which is sent to our reference lab for flow and cytogenetics. / AM:lina 08/14/2020 TC:5 CPT: 87409, 97664, 78142 x2, 92867 x3 ADDENDUM ADDENDUM ADDENDUM ADDENDUM ADDENDUM ADDENDUM ADDENDUM 08/22/2020 10:09 ADDENDUM 08/22/2020 10:09 ADDENDUM 08/22/2020 10:09 ADDENDUM 08/22/2020 10:09 ADDENDUM 08/22/2020 10:09 CYTOGENETICS REPORT FROM [facility] INTERPRETATION: A normal male karyotype was observed in twenty metaphases analyzed. Karyotype: 46,XY[20] Please see complete report in e-chart or EMR for further details
--- NOTE | 2020-08-14 | IMM_PTH ---
PATIENT: MALI MARTIN LOC: MS3 U#:[id number] AGE/SX: 74/M ROOM: [id number] RE08/05/[address]: Dr. Chelsie Cárdenas MD : 1945 BED: 1 DIS: 08/16/2020 SPEC #: [id number] RECD: 08/15/20 12:23 STATUS: MELINDA REQ #: [id number] MERLE: 08/14/20 00:[address]: Blake Mckeon DEPT: IMMUNOHISTOCHEMISTRY RECD BY: Minerva Varela ENTERED: 08/15/20 12:25 SP TYPE: IMMUNO OTHR DR: MD Dr. Olivia Briseno MD Dr. Ghasem E Ashelfah, MD Dr. John Prokop, MD Dr. Paul Moodispaw, MD Dr. Tamera Robotham, MD Tissues: B - Bone marrow of iliac crest Procedures: CD138 (initial) CD20 (add) CD3 (add) CD45 (add) CD5 (add) CD79A (add) KAPPA (add) LAMBDA (add) PHYSICIAN & [place] [id number] SPECIMEN INFORMATION: Tissue Source: B - Bone marrow aspirate Clinical Info: Renal failure, monoclonal gammopathy, multiple myeloma Specimen Number: [id number] CPT code: 02489, 25136 x7 METHODOLOGY: Deparaffinized sections of prefer/formalin-fixed tissue or PAP/DQ stained slides are incubated with monoclonal/polyclonal antibodies/oligonucleotide probes. Localization is made via biotin free immunoperoxidase method. Appropriate controls are performed and reacted as expected. Results on target cell population are indicated in the following table: RESULTS: ANTIBODY / CLONE RESULT Block B CD138 (B-A38) positive [place] (polyclonal) positive Lambda (polyclonal) positive CD3 (PS1) positive CD5 (SP10) positive CD20 (L26) positive CD45 (RP2/18) positive CD79a (11E3) positive These tests were developed and their performance characteristics determined by [facility]. They may not have been cleared or approved by the U.S. Food and Drug Administration. The FDA has determined that such clearance or approval is not necessary. The above immunohistochemical/dualISH markers are ordered and reviewed by the Pathologist. INTERPRETATION: B. Bone marrow aspirate: Interstitial infiltrates of small lymphocytes and lymphoid aggregates are noted, polytypic in nature. Interstitial infiltrates of a few plasma cells (~-1-2%) are noted, polytypic in nature. SJ:lina 08/16/2020
[2020-08-14 06:30] LABS: Absolute Lymphocyte Count 0.77 X10^3/uL (0.83-4.51); Absolute Neutrophil Count 4.7 X10^3/uL (2.0-7.7); Basophil# 0.02 X10^3/uL; Basophil% 0.3 % (0-1); Eosinophils% 1.5 % (0-5); Hematocrit 23.2 % (40-54); Hemoglobin 7.9 g/dL (13.0-16.5); Lymphocyte # 0.77 X10^3/ul (4.0); Lymphocyte % 11.8 % (19-41); Mean Corp Hgb Conc 34.1 g/dL (32-36); Mean Corpuscular Hgb 31.9 pg (27.0-32.0); Mean Corpuscular Volume 93.5 fL (80-94); Mean Platelet Vol. 12.2 fl (6.2-12.0); Monocyte# 0.94 X10^3/uL; Monocyte% 14.4 % (0-10); NRBC Flagged by Analyzer 0 % (0-5); Neutrophil # 4.66 X10^3/uL (2.7-7.7); Neutrophil % 71.5 % (47-70); POSITIVE COUNT YES; Platelet Count 75 K/mm3 (150-450); RBC Distribution Width CV 15.5 % (11.6-14.6); RBC Distribution Width SD 53.2 fl (35.1-43.9); Red Blood Count 2.48 M/mm3 (4.6-6.2); White Blood Count 6.5 K/mm3 (4.4-11.0)
[2020-08-14] MEDS: Insulin Lispro 100 UNIT/ML INSULN.PEN SC ×2 (06:44→16:07)
[2020-08-14 06:55] LABS: Bedside Glucose 160 mg/dL (70-110)
--- NOTE | 2020-08-14 09:08 | CT_ITS ---
PROCEDURE: CT GUIDED BONE marrow biopsy of the posterior right iliac bone. DATE: 08/14/2020. INDICATION: Male, 74 years old. Anemia. Monoclonal gammopathy. PHYSICIAN: Stanton Betancourt M.D. RADIATION DOSAGE (If Supplied By Facility): CTDIvol = ( 15.2 ) mGy, DLP = ( 307.6 ) mGycm. Individualized dose optimization techniques were utilized. PROCEDURE: The risks, benefits, and alternatives to the procedure were explained to the patient. The specific risk of hemorrhage requiring further treatment or intervention was detailed and accepted. Follow-up instructions were discussed with the patient as well. Written informed consent was obtained. The patient was brought into the CT suite and placed in the prone position. . An appropriate entry site overlying the posterior right iliac bone was identified. The overlying skin was prepped and draped in the usual sterile fashion. 1% lidocaine was administered subcutaneously for local anesthesia. Conscious sedation was performed. The patient received 2 mg of VERSED and 50 mcg of FENTANYL intravenously. Conscious sedation was started at 9:11 AM and terminated at 9:21 AM the patient was independently monitored by the department nurse. Under CT guidance, a bone marrow biopsy as well as bone marrow aspirates were performed utilizing an 11-gauge bone marrow biopsy core needle system.. The specimens were then placed in in the appropriate fluid and transported to the laboratory for analysis. Hemostasis was obtained. The patient tolerated the procedure well without immediate complications. CT/Biopsy/Inj or Needle Placement IMPRESSION: Successful CT guided bone marrow biopsy and bone marrow aspirates of the posterior right iliac bone, as described above. The conscious sedation protocol was followed. Electronically Signed: Stanton Betancourt MD at 10:08 EST , Service support ,
[2020-08-14] MEDS: Midazolam 2 MG/2 ML Syringe IV (09:10)
[2020-08-14] MEDS: fentaNYL 100 MCG/2 ML Ampul IV (09:11)
--- NOTE | 2020-08-14 09:13 | PCM.PROGNOTE ---
Patient Problems: Active and Suspected Problems (Last Updated 08/12/20 @ 11:[address] Chelsie Cárdenas MD) Acute renal injury (Acute) Anemia (Acute) Monoclonal gammopathy (Acute) Subjective: Chief complaint: Follow-up after admission for acute renal failure, acute on chronic anemia. Patient seen and examined. No acute events overnight. Yesterday evening, he complained of right neck pain after placement of the dialysis catheter. Today, he is feeling better. No other specific complaints. His vital signs are stable. - Physical Exam Vitals/I&O's: Vital Signs Temp Pulse Resp BP Pulse Ox 99.5 F H 67 17 152/73 H 96 08/14/20 08:43 08/14/20 08:43 08/14/20 08:43 08/14/20 08:43 08/14/20 08:43 Oxygen Delivery Method [4] Room Air Oxygen Delivery Method [3] Room Air Oxygen Delivery Method [2] Room Air Oxygen Delivery Method [1 ( Room Air Initial Baseline)] Oxygen Delivery Method Room Air Weight: 176 lb Body Mass Index (BMI) 24.5 Finger Stick Blood Glucose 161 Intake and Output for Last 24 Hours 08/12/20 08/13/20 08/14/20 23:59 23:59 23:59 Intake Total 1757.5 / 2623.75 2776.25 / 2776.25 0 / 0 Output Total 2275 / 3775 3350 / 3625 750 / 750 Balance -517.5 / -1151.25 -573.75 / -848.75 -750 / -750 General: Alert, Oriented x3, Cooperative, No apparent distress HEENT: Atraumatic, PERRLA, EOMI, Normocephalic Oral: Moist Mucosa, No Gingival or Mucosal Lesions/ Ulcerations Neck: Supple, No JVD, Negative Carotid Bruits, Trachea Midline, Thyroid Normal Size and Texture Lungs: Clear to auscultation, Normal air movement, No rhonchi, No wheeze, No rales Cardiovascular: Regular rate, Regular Rhythm, Normal S1, Normal S2, PMI Normal Abdomen: Bowel Sounds Present, Soft, Non Tender, Non-Distended, No Hepato-splenomegaly Extremities: No clubbing, No cyanosis, No edema Skin: No rashes, No breakdown Lymphatic: No Cervical, Supraclavicular, or Inguinal Adenopathy Neurological: Cranial nerves II-XII grossly intact, Neuro grossly intact Psych/Mental Status: Normal Affect, Appropriate, Alert and oriented to time, place, person, mood and affect Microbiology Past 72 Hours 08/12/20 06:45 Interface Orders SARS-CoV-2 Antigen (Rapid) - Final Laboratory Results 08/13/20 10:20: POC Glucose 233 H 08/13/20 17:19: POC Glucose 151 H 08/13/20 21:40: POC Glucose 166 H 08/14/20 06:14: WBC 6.5, RBC 2.48 L, Hgb 7.9 L, Hct 23.2 L, MCV 93.5, MCH 31.9, MCHC 34.1, RDW Std Deviation 53.2 H, RDW Coeff of Dano 15.5 H, Plt Count 75 L, MPV 12.2 H, Immature Gran % (Auto) 0.500, Neut % (Auto) 71.5 H, Lymph % (Auto) 11.8 L, [place] % (Auto) 14.4 H, Eos % (Auto) 1.5, Baso % (Auto) 0.3, Absolute Neuts (auto) 4.7, Absolute Lymphs (auto) 0.77 L, Nucleated RBC % 0 08/14/20 06:40: POC Glucose 160 H Current Medications Acetaminophen (Acetaminophen 325 Mg Tablet) 650 mg PO Q6H PRN PRN PRN Reason: Pain Score 1-10/Temp > 100.7 F Last Admin: 08/13/20 21:51 Dose: 650 mg Documented by: Albuterol Sulfate (Albuterol 2.5 Mg/3 Ml Vial.Neb.) 2.5 mg INHALATION Q2H PRN PRN PRN Reason: Dyspnea, wheezing Amiodarone HCl (Amiodarone 200 Mg Tablet) 200 mg PO DINNER [facility] Last Admin: 08/13/20 17:33 Dose: 200 mg Documented by: Fentanyl Citrate (Fentanyl 100 Mcg/2 Ml Ampul) 25 - 50 mcg IV UD PRN PRN Reason: Procedural Pain Control Stop: 08/14/20 23:59 Last Admin: 08/14/20 09:11 Dose: 50 mcg Documented by: Guaifenesin (Guaifenesin 10 Ml Udc (200mg/10ml)) 20 ml PO Q4H PRN PRN PRN Reason: COUGH Hydralazine HCl (Hydralazine 20 Mg/Ml Vial) 10 mg IV Q4H PRN PRN PRN Reason: SBP > 160 Sodium Chloride () 1,000 mls @ 75 mls/hr IV .[id number] [facility] Last Admin: 08/13/20 21:46 Dose: 75 mls/hr Documented by: Sodium Chloride () 500 mls @ 0 mls/hr IV .Q0M [facility] Stop: 08/14/20 23:59 Insulin Human Lispro (Insulin Lispro 100 Unit/Ml Insuln.Pen) [address] [facility]; Protocol Last Admin: 08/14/20 06:44 Dose: 1 u Documented by: Magnesium Chloride (Magnesium Chloride 64 Mg Delay Rel.Tablet) 128 mg PO BID [facility] Last Admin: 08/13/20 21:43 Dose: 128 mg Documented by: Melatonin (Melatonin 3 Mg Tablet) 3 mg PO QHS PRN PRN PRN Reason: INSOMNIA Metoprolol Tartrate (Metoprolol Tartrate 50 Mg Tablet) 50 mg PO BID [facility] Last Admin: 08/13/20 21:44 Dose: 50 mg Documented by: Midazolam HCl (Midazolam 2 Mg/2 Ml Syringe) 1 - 2 mg IV UD PRN PRN Reason: Procedural Sedation Stop: 08/14/20 23:59 Last Admin: 08/14/20 09:10 Dose: 2 mg Documented by: Nitroglycerin (Nitroglycerin (Inpatient Use) 0.4 Mg Tab.Subl) 0.4 mg SUBLINGUAL Q5M PRN PRN Reason: CARDIAC/CHEST PAIN Ondansetron HCl (Ondansetron 4 Mg/2 Ml Vial) 4 mg IV Q8H PRN PRN PRN Reason: NAUSEA/VOMITING Last Admin: 08/10/20 12:49 Dose: 4 mg Documented by: Oxycodone HCl (Oxycodone 5 Mg Tablet) 5 mg PO Q6H PRN PRN PRN Reason: Pain Score 6-10 Last Admin: 08/13/20 17:37 Dose: 5 mg Documented by: Pantoprazole Sodium (Pantoprazole Sodium 20 Mg Tablet) 20 mg PO DAILY [facility] Last Admin: 08/13/20 13:01 Dose: 20 mg Documented by: Pravastatin Sodium (Pravastatin 20 Mg Tablet) 20 mg PO QHS [facility] Last Admin: 08/13/20 23:08 Dose: 20 mg Documented by: Prochlorperazine Edisylate (Prochlorperazine 10 Mg/2 Ml Vial) 5 mg IV Q4H PRN PRN PRN Reason: Breakthrough nausea/vomiting Psyllium Hydrophilic Mucilloid (Psyllium 1 Packet) 1 packet PO DAILY PRN PRN PRN Reason: Constipation Senna/Docusate Sodium (Senna/Docusate Sodium 1 Tablet) 2 tablet PO BID PRN PRN PRN Reason: Constipation Sodium Bicarbonate (Sodium Bicarbonate 650 Mg Tablet) 1,300 mg PO 4X/DAY [facility] Last Admin: 08/13/20 21:44 Dose: 1,300 mg Documented by: Sodium Chloride (0.9% Saline Lock 10 Ml Syringe) 10 - 40 ml IV UD PRN PRN Reason: SALINE FLUSH Last Admin: 08/13/20 21:51 Dose: 10 ml Documented by: Tamsulosin HCl (Tamsulosin Hcl 0.4 Mg Capsule) 0.4 mg PO DAILY [facility] Last Admin: 08/13/20 13:45 Dose: 0.4 mg Documented by: Medical Necessity - Tobacco Use Smoking Status: Never smoker Tobacco Use: Non-smoker Assessment/Plan All Active Problems (Last Updated 08/12/20 @ 11:[address] Chelsie Cárdenas MD) Acute renal injury (Acute) Anemia (Acute) Monoclonal gammopathy (Acute) This is a 74 years old male patient was referred to the ED by his PCPs office for abnormal blood work and he was found to have acute renal failure and acute on chronic anemia, has been having extensive work-up and he is going for CT-guided kidney biopsy today. #1 acute renal failure: Unclear etiology, could be due to ATN. Remained on IV fluids, on p.o. sodium bicarb. Started on hemodialysis yesterday. Today's BUN is 41, creatinine is 5.36, improving. Awaiting results of the CT-guided kidney biopsy. No evidence of obstructive uropathy on CT scan abdomen and pelvis, nonobstructive kidney stones. renal artery duplex reviewed. Nephrology on the case. Double-stranded DNA and JOLANTA were positive. Plan for hemodialysis today again, repeat CBC and BMP tomorrow morning. #2 acute on chronic anemia/thrombocytopenia: Patient received total of 2 months of packed RBCs, today's hemoglobin is 7.9 g/dL. Platelet count today is 75,000, trending down. No active bleeding. INR is 1.2. He had upper EGD today that showed gastric polyps, erythematous antral mucosa, no active bleeding. Already on Protonix. He was evaluated by oncology, recommended CT-guided bone marrow biopsy which will be done today. Protein electrophoresis and kappa lambda light chains are pending. Plan for bone marrow biopsy today. #3 hypomagnesemia: Magnesium replaced and corrected, yesterday's magnesium is 2.5. #4 type 2 diabetes mellitus: Blood sugar stable, continue sliding scale and Accu-Cheks. Metformin, glimepiride and sitagliptin are on hold. #5 paroxysmal atrial fibrillation: Heart rate stable, continue metoprolol for rate control, Xarelto remains on hold. #6 history of wide-complex tachycardia: Stable, rate controlled, blood pressure stable, continue amiodarone. #7 hypertension: Blood pressure stable, continue metoprolol, keep holding losartan because of acute renal failure. #8 GERD: Continue PPI. #9 benign prostatic hypertrophy: Continue Flomax. #10 hyperlipidemia: Continue statins. #11 DVT prophylaxis: SCDs. This note was generated with [employer] dictation software. It may contain incorrect words, spelling, and punctuation that were not noted in checking the note before signing. Inpatient E&M: 90728 Subs Hosp L2
[2020-08-14 09:42] LABS: Anion Gap 4 (5-15); BUN 41 mg/dL (7-18); BUN/Creat Ratio 7.6 RATIO (10-20); Calcium,Total 7.5 mg/dL (8.5-10.1); Chloride 111 mmol/L (98-107); Creatinine, Serum 5.36 mg/dL (0.70-1.30); EST Glomerular Filtration Rate 11 mL/min (>60); Est Glom Filt Rate - Afr Amer 14 mL/min (>60); Estimated Creatinine Clearance 12.68 ml/min; Glucose 167 mg/dL (74-106); Sodium Level 142 mmol/L (136-145)
--- NOTE | 2020-08-14 09:57 | CASEMGMT ---
MAGGIE ESTES called and updated Harvey at [facility] regarding referral for outpatient HD. Clinical information faxed to [facility]. MAGGIE ESTES will continue to follow this patient and plan for a safe discharge.
[2020-08-14] MEDS: Sodium Bicarbonate 650 MG Tablet 1300 MG PO ×3 (11:02→21:46)
[2020-08-14] MEDS: Pantoprazole Sodium 20 MG Tablet PO (11:02)
[2020-08-14] MEDS: Metoprolol Tartrate 50 MG Tablet PO ×2 (11:02→21:46)
[2020-08-14] MEDS: Tamsulosin HCl 0.4 MG Capsule PO (11:03)
[2020-08-14] MEDS: 0.9% Saline Lock 10 ML Syringe IV (11:04)
[2020-08-14] MEDS: Magnesium Chloride 64 MG Delay Rel.Tablet 128 MG PO ×2 (11:07→21:47)
[2020-08-14 11:25] LABS: Bedside Glucose 140 mg/dL (70-110)
--- NOTE | 2020-08-14 11:29 | PN.RENAL_ITS ---
Patient Problems: Active and Suspected Problems (Last Updated 08/12/20 @ 11:[address] Chelsie Cárdenas MD) Acute renal injury (Acute) Anemia (Acute) Monoclonal gammopathy (Acute) Subjective: No shortness of breath no gross hematuria no chest pain no complaints - Physical Exam Vitals/I&O's: Vital Signs Temp Pulse Resp BP Pulse Ox 98.4 F 60 20 H 159/66 H 96 08/14/20 10:45 08/14/20 11:02 08/14/20 10:45 08/14/20 10:45 08/14/20 10:45 Oxygen Flow Rate (L/min) [3] 2 Oxygen Flow Rate (L/min) [2] 2 Oxygen Flow Rate (L/min) [1 ( 2 Initial Baseline)] Oxygen Flow Rate (L/min) 2 Oxygen Delivery Method [4] Room Air Oxygen Delivery Method [3] Nasal Cannula Oxygen Delivery Method [2] Nasal Cannula Oxygen Delivery Method [1 ( Nasal Cannula Initial Baseline)] Oxygen Delivery Method Room Air Weight: 79.832 kg Body Mass Index (BMI) 24.5 Finger Stick Blood Glucose 161 Intake and Output for Last 24 Hours 08/12/20 08/13/20 08/14/20 23:59 23:59 23:59 Intake Total 1757.5 / 2623.75 2776.25 / 2776.25 0 / 0 Output Total 2275 / 3775 3350 / 3625 750 / 750 Balance -517.5 / -1151.25 -573.75 / -848.75 -750 / -750 General: Alert HEENT: Atraumatic, Normocephalic Oral: Moist Mucosa Neck: Supple, Trachea Midline Lungs: Clear to auscultation, Normal air movement Cardiovascular: Normal S1, Normal S2 Abdomen: Bowel Sounds Present, Soft, Non Tender Extremities: No edema Microbiology Past 72 Hours 08/12/20 06:45 Interface Orders SARS-CoV-2 Antigen (Rapid) - Final Laboratory Results 08/13/20 17:19: POC Glucose 151 H 08/13/20 21:40: POC Glucose 166 H 08/14/20 06:14: WBC 6.5, RBC 2.48 L, Hgb 7.9 L, Hct 23.2 L, MCV 93.5, MCH 31.9, MCHC 34.1, RDW Std Deviation 53.2 H, RDW Coeff of Dano 15.5 H, Plt Count 75 L, MPV 12.2 H, Immature Gran % (Auto) 0.500, Neut % (Auto) 71.5 H, Lymph % (Auto) 11.8 L, [place] % (Auto) 14.4 H, Eos % (Auto) 1.5, Baso % (Auto) 0.3, Absolute Neuts (auto) 4.7, Absolute Lymphs (auto) 0.77 L, Nucleated RBC % 0 08/14/20 06:14: Sodium 142, Potassium 4.0, Chloride 111 H, Carbon Dioxide 27.0, Anion Gap 4 L, BUN 41 H, Creatinine 5.36 H, Estim Creat Clear Calc 12.68, Est GFR (MDRD) Af Amer 14 L, Est GFR (MDRD) Non-Af 11 L, BUN/Creatinine Ratio 7.6 L, Glucose 167 H, Calcium 7.5 L 08/14/20 06:40: POC Glucose 160 H 08/14/20 10:54: POC Glucose 140 H Current Medications Acetaminophen (Acetaminophen 325 Mg Tablet) 650 mg PO Q6H PRN PRN PRN Reason: Pain Score 1-10/Temp > 100.7 F Last Admin: 08/13/20 21:51 Dose: 650 mg Documented by: Albuterol Sulfate (Albuterol 2.5 Mg/3 Ml Vial.Neb.) 2.5 mg INHALATION Q2H PRN PRN PRN Reason: Dyspnea, wheezing Amiodarone HCl (Amiodarone 200 Mg Tablet) 200 mg PO DINNER [facility] Last Admin: 08/13/20 17:33 Dose: 200 mg Documented by: Guaifenesin (Guaifenesin 10 Ml Udc (200mg/10ml)) 20 ml PO Q4H PRN PRN PRN Reason: COUGH Hydralazine HCl (Hydralazine 20 Mg/Ml Vial) 10 mg IV Q4H PRN PRN PRN Reason: SBP > 160 Sodium Chloride () 1,000 mls @ 75 mls/hr IV .[id number] [facility] Last Admin: 08/13/20 21:46 Dose: 75 mls/hr Documented by: Insulin Human Lispro (Insulin Lispro 100 Unit/Ml Insuln.Pen) 0 unit SC [facility]; Protocol Last Admin: 08/14/20 10:56 Dose: Not Given Documented by: Magnesium Chloride (Magnesium Chloride 64 Mg Delay Rel.Tablet) 128 mg PO BID [facility] Last Admin: 08/14/20 11:07 Dose: 128 mg Documented by: Melatonin (Melatonin 3 Mg Tablet) 3 mg PO QHS PRN PRN PRN Reason: INSOMNIA Metoprolol Tartrate (Metoprolol Tartrate 50 Mg Tablet) 50 mg PO BID [facility] Last Admin: 08/14/20 11:02 Dose: 50 mg Documented by: Nitroglycerin (Nitroglycerin (Inpatient Use) 0.4 Mg Tab.Subl) 0.4 mg SUBLINGUAL Q5M PRN PRN Reason: CARDIAC/CHEST PAIN Ondansetron HCl (Ondansetron 4 Mg/2 Ml Vial) 4 mg IV Q8H PRN PRN PRN Reason: NAUSEA/VOMITING Last Admin: 08/10/20 12:49 Dose: 4 mg Documented by: Oxycodone HCl (Oxycodone 5 Mg Tablet) 5 mg PO Q6H PRN PRN PRN Reason: Pain Score 6-10 Last Admin: 08/13/20 17:37 Dose: 5 mg Documented by: Pantoprazole Sodium (Pantoprazole Sodium 20 Mg Tablet) 20 mg PO DAILY [facility] Last Admin: 08/14/20 11:02 Dose: 20 mg Documented by: Pravastatin Sodium (Pravastatin 20 Mg Tablet) 20 mg PO QHS [facility] Last Admin: 08/13/20 23:08 Dose: 20 mg Documented by: Prochlorperazine Edisylate (Prochlorperazine 10 Mg/2 Ml Vial) 5 mg IV Q4H PRN PRN PRN Reason: Breakthrough nausea/vomiting Psyllium Hydrophilic Mucilloid (Psyllium 1 Packet) 1 packet PO DAILY PRN PRN PRN Reason: Constipation Senna/Docusate Sodium (Senna/Docusate Sodium 1 Tablet) 2 tablet PO BID PRN PRN PRN Reason: Constipation Sodium Bicarbonate (Sodium Bicarbonate 650 Mg Tablet) 1,300 mg PO 4X/DAY [facility] Last Admin: 08/14/20 11:02 Dose: 1,300 mg Documented by: Sodium Chloride (0.9% Saline Lock 10 Ml Syringe) 10 - 40 ml IV UD PRN PRN Reason: SALINE FLUSH Last Admin: 08/14/20 11:04 Dose: 10 ml Documented by: Tamsulosin HCl (Tamsulosin Hcl 0.4 Mg Capsule) 0.4 mg PO DAILY [facility] Last Admin: 08/14/20 11:03 Dose: 0.4 mg Documented by: Medical Necessity - Tobacco Use Smoking Status: Never smoker Tobacco Use: Non-smoker Assessment/Plan All Active Problems (Last Updated 08/12/20 @ 11:[address] Chelsie Cárdenas MD) Acute renal injury (Acute) Anemia (Acute) Monoclonal gammopathy (Acute) JAKOB?possible dense ATN vs AIN but at this time etiology unclear Hyperkalemia?resolved Metabolic acidosis-NAG MGUS JOLANTA positive Proteinuria 356 mg per 24 hour collection Nephrolithiasis Renal cyst Anemia Diabetes mellitus Continue p.o. bicarb agree with holding losartan cardiology Dr. Blas to manage anticoagulation for Afib ideally would hold DOAC or warfarin for 7 days post renal biopsy. xarelto last dose on 08/06 bp ok JOLANTA positive and antidouble-stranded DNA positive. Will need rheumatology outpatient consult scheduled upon discharge as inpatient rheumatology is not available. Dialysis today and tomorrow tolerated well dialysis yesterday. Awaiting preliminary result of renal biopsy hematology seeing patient for MGUS SW for HD unit placement Avoid nephrotoxins
[2020-08-14] MEDS: 0.45% Normal Saline 1,000 ML 75 ML IV (14:55)
[2020-08-14 16:20] LABS: Bedside Glucose 170 mg/dL (70-110)
--- NOTE | 2020-08-14 19:43 | PCM.PN.CARD ---
Subjectve: The patient was evaluated earlier this day. At that point time he appeared to be symptomatically and hemodynamically stable. He had no new acute cardiovascular complaints. Objective: Vital Signs Temp Pulse Resp BP Pulse Ox 98.3 F 63 16 167/74 H 95 08/14/20 16:56 08/14/20 18:46 08/14/20 16:56 08/14/20 16:56 08/14/20 16:00 Oxygen Flow Rate (L/min) [3] 2 Oxygen Flow Rate (L/min) [2] 2 Oxygen Flow Rate (L/min) [1 ( 2 Initial Baseline)] Oxygen Flow Rate (L/min) 2 Oxygen Delivery Method [4] Room Air Oxygen Delivery Method [3] Nasal Cannula Oxygen Delivery Method [2] Nasal Cannula Oxygen Delivery Method [1 ( Nasal Cannula Initial Baseline)] Oxygen Delivery Method Room Air Weight: 176 lb Body Mass Index (BMI) 24.5 Finger Stick Blood Glucose 161 Intake and Output for Last 24 Hours 08/12/20 08/13/20 08/14/20 23:59 23:59 23:59 Intake Total 1757.5 / 2623.75 2776.25 / 2776.25 1605.25 / 1605.25 Output Total 2275 / 3775 3350 / 3625 1670 / 1670 Balance -517.5 / -1151.25 -573.75 / -848.75 -64.75 / -64.75 General: Awake, Alert, Oriented x 3, Cooperative, No Acute Distress HEENT: Atraumatic, Normocephalic, PERRL, EOMI, Sclera Non Icteric Neck: Supple, Good ROM, No JVD Lungs: Clear to auscultation Cardiovascular: Regular Rhythm, Normal S1, Normal S2 Abdomen: Bowel Sounds Present, Soft Extremities: No edema Neurological: No Focal Motor or Sensory Deficit Psych/Mental Status: Appropriate 08/14/20 06:14: WBC 6.5, RBC 2.48 L, Hgb 7.9 L, Hct 23.2 L, MCV 93.5, MCH 31.9, MCHC 34.1, Plt Count 75 L, MPV 12.2 H, Immature Gran % (Auto) 0.500, Neut % (Auto) 71.5 H, Lymph % (Auto) 11.8 L, [place] % (Auto) 14.4 H, Eos % (Auto) 1.5, Baso % (Auto) 0.3, Absolute Neuts (auto) 4.7, Nucleated RBC % 0 08/14/20 06:14: Sodium 142, Potassium 4.0, Chloride 111 H, Carbon Dioxide 27.0, Anion Gap 4 L, BUN 41 H, Creatinine 5.36 H, Est GFR (MDRD) Af Amer 14 L, Est GFR (MDRD) Non-Af 11 L, BUN/Creatinine Ratio 7.6 L, Glucose 167 H, Calcium 7.5 L Rhythm: Sinus rhythm; paroxysmal atrial fibrillation Medical Necessity - Tobacco Use Smoking Status: Never smoker Tobacco Use: Non-smoker Assessment/Plan 1. CAD At the present time the patient has CAD. He has been evaluated in the past. It has been felt to be nonangiographically significant. He should continue risk factor modification medical therapy as deemed appropriate with adjustments based upon his clinical status, renal insufficiency, etc. It does not appear he needs further noninvasive or invasive evaluation of his CAD status at this time. 2. Paroxysmal atrial fibrillation The patient does have a history of paroxysmal atrial fibrillation. He has been on medical therapy with rate control, antiarrhythmic therapy, and anticoagulant therapy. He has undergone evaluation with a repeat transthoracic echocardiogram. The results are as noted. He will continue medical therapy. His novel/direct acting oral anticoagulants are on hold at this time. It appears he has had 2 somewhat brief episodes of recurrent paroxysmal atrial fibrillation. He had spontaneous return to sinus rhythm. He has undergone multiple invasive procedures. Nephrology has requested that he be not return to anticoagulant therapy for at least 7 days status post his renal biopsy. However a return to anticoagulant therapy will need input from hematology and oncology based upon his anemia and requirements for PRBCs as well. If he does return anticoagulant therapy then consideration will be given as to which anticoagulant based upon his renal function, etc., would be appropriate for him. 3. Hyperlipidemia He should continue medical management as he is able. 4. Hypertension His blood pressure can be followed and his medicines can be adjusted as needed taken into consideration his other conditions and his renal insufficiency. 5. Acute renal insufficiency The etiology is unclear at this time. There is concerned this may be compatible with an underlying hematologic issue. He has undergone renal biopsy. 6. Anemia He is anemic. It appears there is concerned this may be anemia of chronic disease. It is unclear as to whether or not his renal insufficiency is participating in this. This may play a role in anticoagulant therapy both short-term and long-term. Again he has been undergoing evaluation by hematology/oncology. 7. Monoclonal gammopathy There is concern he may have an underlying monoclonal gammopathy. Thus he is being evaluated by both nephrology and hematology. Again he is pending upcoming evaluation with renal biopsy and bone marrow aspirate/biopsy. Overall, he will continue to be monitored. He has had episodes of recurrent paroxysmal atrial fibrillation which is not new for him. They have been brief and he has had spontaneous return to sinus rhythm. He will continue his current medical therapy. His anticoagulants remain on hold at this time as noted above pending further time from his multiple invasive procedures and input from hematology/oncology as well. This note was generated using a voice recognition system and there may be incorrect words, spelling or punctuation that were not noted when reviewing the office note prior to saving.
[2020-08-14] MEDS: Heparin 10,000 UNITS/10 ML Vial IV (20:00)
--- NOTE | 2020-08-14 20:24 | DIALYSIS ---
hemodialysis x 3 hours. no fluid removal. stable t/o. CVC closed with heparin. CVC dressing changed today. Report to DAVE SERRANO Nichelle
[2020-08-14] MEDS: Pravastatin 20 MG Tablet PO (21:47)
[2020-08-15] VITALS (15 sets, daily range): BP systolic 118–158; BP diastolic 48–74; PULSE 65–76; RESP 16–18; TEMP 36.7–37.4; O2SAT 93–97
[2020-08-15 01:31] LABS: Bedside Glucose 139 mg/dL (70-110)
[2020-08-15] MEDS: 0.45% Normal Saline 1,000 ML 75 ML IV ×2 (04:32→15:01)
[2020-08-15] MEDS: Insulin Lispro 100 UNIT/ML INSULN.PEN SC ×3 (06:16→21:19)
[2020-08-15 06:26] LABS: Bedside Glucose 169 mg/dL (70-110)
[2020-08-15 07:04] LABS: Absolute Lymphocyte Count 0.68 X10^3/uL (0.83-4.51); Absolute Neutrophil Count 5.7 X10^3/uL (2.0-7.7); Basophil# 0.04 X10^3/uL; Basophil% 0.5 % (0-1); Eosinophil# 0.06 X10^3/uL; Eosinophils% 0.8 % (0-5); Hematocrit 22.2 % (40-54); Hemoglobin 7.4 g/dL (13.0-16.5); Lymphocyte # 0.68 X10^3/ul (4.0); Lymphocyte % 9.3 % (19-41); Mean Corp Hgb Conc 33.3 g/dL (32-36); Mean Corpuscular Hgb 31.8 pg (27.0-32.0); Mean Corpuscular Volume 95.3 fL (80-94); Mean Platelet Vol. 12.7 fl (6.2-12.0); Monocyte% 10.9 % (0-10); NRBC Flagged by Analyzer 0 % (0-5); Neutrophil # 5.71 X10^3/uL (2.7-7.7); Neutrophil % 77.8 % (47-70); POSITIVE COUNT YES; RBC Distribution Width CV 14.9 % (11.6-14.6); Red Blood Count 2.33 M/mm3 (4.6-6.2); White Blood Count 7.3 K/mm3 (4.4-11.0)
[2020-08-15 07:07] LABS: Differential Indicated SCAN CRITERIA MET; Platelet Count 47 K/mm3 (150-450)
[2020-08-15 07:31] LABS: Anion Gap 4 (5-15); BUN 21 mg/dL (7-18); BUN/Creat Ratio 5.9 RATIO (10-20); Calcium,Total 7.3 mg/dL (8.5-10.1); Chloride 105 mmol/L (98-107); Creatinine, Serum 3.55 mg/dL (0.70-1.30); EST Glomerular Filtration Rate 18 mL/min (>60); Est Glom Filt Rate - Afr Amer 22 mL/min (>60); Estimated Creatinine Clearance 19.15 ml/min; Glucose 149 mg/dL (74-106); Potassium 3.6 mmol/L (3.5-5.1); Sodium Level 139 mmol/L (136-145)
[2020-08-15 07:38] LABS: Platelet Estimate MKD DEC (ADEQ)
[2020-08-15] MEDS: Sodium Bicarbonate 650 MG Tablet 1300 MG PO ×4 (08:11→21:19)
[2020-08-15] MEDS: Pantoprazole Sodium 20 MG Tablet PO (08:12)
--- NOTE | 2020-08-15 08:49 | PCM.PROGNOTE ---
Patient Problems: Active and Suspected Problems (Last Updated 08/12/20 @ 11:[address] Chelsie Cárdenas MD) Acute renal injury (Acute) Anemia (Acute) Monoclonal gammopathy (Acute) Subjective: Chief complaint: Follow-up after admission for acute renal failure, acute on chronic anemia and thrombocytopenia. Patient seen and examined. No acute events overnight. He is undergoing dialysis at this time. He denied any significant complaints. His vital signs are stable. - Physical Exam Vitals/I&O's: Vital Signs Temp Pulse Resp BP Pulse Ox 98.8 F 70 16 125/55 H 96 08/15/20 07:57 08/15/20 07:57 08/15/20 07:57 08/15/20 07:57 08/15/20 07:57 Oxygen Flow Rate (L/min) [3] 2 Oxygen Flow Rate (L/min) [2] 2 Oxygen Flow Rate (L/min) [1 ( 2 Initial Baseline)] Oxygen Flow Rate (L/min) 2 Oxygen Delivery Method [4] Room Air Oxygen Delivery Method [3] Nasal Cannula Oxygen Delivery Method [2] Nasal Cannula Oxygen Delivery Method [1 ( Nasal Cannula Initial Baseline)] Oxygen Delivery Method Room Air Weight: 174 lb 9.698 oz Body Mass Index (BMI) 24.5 Finger Stick Blood Glucose 161 Intake and Output for Last 24 Hours 08/13/20 08/14/20 08/15/20 23:59 23:59 23:59 Intake Total 2776.25 / 2776.25 1605.25 / 1905.25 1500 / 1500 Output Total 3350 / 3625 1670 / 1670 Balance -573.75 / -848.75 -64.75 / 235.25 1500 / 1500 General: Alert, Oriented x3, Cooperative, No apparent distress HEENT: Atraumatic, PERRLA, EOMI, Normocephalic Oral: Moist Mucosa, No Gingival or Mucosal Lesions/ Ulcerations Neck: Supple, No JVD, Negative Carotid Bruits, Trachea Midline, Thyroid Normal Size and Texture Lungs: Clear to auscultation, Normal air movement, No rhonchi, No wheeze, No rales Cardiovascular: Regular rate, Regular Rhythm, Normal S1, Normal S2, PMI Normal Abdomen: Bowel Sounds Present, Soft, Non Tender, Non-Distended, No Hepato-splenomegaly Extremities: No clubbing, No cyanosis, No edema Skin: No rashes, No breakdown Lymphatic: No Cervical, Supraclavicular, or Inguinal Adenopathy Neurological: Cranial nerves II-XII grossly intact, Neuro grossly intact Psych/Mental Status: Normal Affect, Appropriate, Alert and oriented to time, place, person, mood and affect Microbiology Past 72 Hours 08/12/20 06:45 Interface Orders SARS-CoV-2 Antigen (Rapid) - Final Laboratory Results 08/14/20 06:14: Sodium 142, Potassium 4.0, Chloride 111 H, Carbon Dioxide 27.0, Anion Gap 4 L, BUN 41 H, Creatinine 5.36 H, Estim Creat Clear Calc 12.68, Est GFR (MDRD) Af Amer 14 L, Est GFR (MDRD) Non-Af 11 L, BUN/Creatinine Ratio 7.6 L, Glucose 167 H, Calcium 7.5 L 08/14/20 10:54: POC Glucose 140 H 08/14/20 16:06: POC Glucose 170 H 08/14/20 21:45: POC Glucose 139 H 08/15/20 06:13: POC Glucose 169 H 08/15/20 06:45: WBC 7.3, RBC 2.33 L, Hgb 7.4 L, Hct 22.2 L, MCV 95.3 H, MCH 31.8, MCHC 33.3, RDW Std Deviation 52.0 H, RDW Coeff of Dano 14.9 H, Plt Count 47 L*, MPV 12.7 H, Immature Gran % (Auto) 0.700, Neut % (Auto) 77.8 H, Lymph % (Auto) 9.3 L, [place] % (Auto) 10.9 H, Eos % (Auto) 0.8, Baso % (Auto) 0.5, Absolute Neuts (auto) 5.7, Absolute Lymphs (auto) 0.68 L, Nucleated RBC % 0, Diff Path Review November alma delia, Platelet Estimate MKD 08/15/20 06:45: Sodium 139, Potassium 3.6, Chloride 105, Carbon Dioxide 30.0, Anion Gap 4 L, BUN 21 H, Creatinine 3.55 H, Estim Creat Clear Calc 19.15, Est GFR (MDRD) Af Amer 22 L, Est GFR (MDRD) Non-Af 18 L, BUN/Creatinine Ratio 5.9 L, Glucose 149 H, Calcium 7.3 L 08/15/20 07:45: Blood Type Pending, Antibody Screen Pending, Crossmatch See Detail Current Medications Acetaminophen (Acetaminophen 325 Mg Tablet) 650 mg PO Q6H PRN PRN PRN Reason: Pain Score 1-10/Temp > 100.7 F Last Admin: 08/13/20 21:51 Dose: 650 mg Documented by: Albuterol Sulfate (Albuterol 2.5 Mg/3 Ml Vial.Neb.) 2.5 mg INHALATION Q2H PRN PRN PRN Reason: Dyspnea, wheezing Amiodarone HCl (Amiodarone 200 Mg Tablet) 200 mg PO DINNER [facility] Last Admin: 08/14/20 16:09 Dose: Not Given Documented by: Guaifenesin (Guaifenesin 10 Ml Udc (200mg/10ml)) 20 ml PO Q4H PRN PRN PRN Reason: COUGH Hydralazine HCl (Hydralazine 20 Mg/Ml Vial) 10 mg IV Q4H PRN PRN PRN Reason: SBP > 160 Sodium Chloride () 1,000 mls @ 75 mls/hr IV .[id number] [facility] Last Admin: 08/15/20 04:32 Dose: 75 mls/hr Documented by: Insulin Human Lispro (Insulin Lispro 100 Unit/Ml Insuln.Pen) 0 unit SC [facility]; Protocol Last Admin: 08/15/20 06:16 Dose: 1 u Documented by: Magnesium Chloride (Magnesium Chloride 64 Mg Delay Rel.Tablet) 128 mg PO BID [facility] Last Admin: 08/14/20 21:47 Dose: 128 mg Documented by: Melatonin (Melatonin 3 Mg Tablet) 3 mg PO QHS PRN PRN PRN Reason: INSOMNIA Metoprolol Tartrate (Metoprolol Tartrate 50 Mg Tablet) 50 mg PO BID [facility] Last Admin: 08/14/20 21:46 Dose: 50 mg Documented by: Nitroglycerin (Nitroglycerin (Inpatient Use) 0.4 Mg Tab.Subl) 0.4 mg SUBLINGUAL Q5M PRN PRN Reason: CARDIAC/CHEST PAIN Ondansetron HCl (Ondansetron 4 Mg/2 Ml Vial) 4 mg IV Q8H PRN PRN PRN Reason: NAUSEA/VOMITING Last Admin: 08/10/20 12:49 Dose: 4 mg Documented by: Oxycodone HCl (Oxycodone 5 Mg Tablet) 5 mg PO Q6H PRN PRN PRN Reason: Pain Score 6-10 Last Admin: 08/13/20 17:37 Dose: 5 mg Documented by: Pantoprazole Sodium (Pantoprazole Sodium 20 Mg Tablet) 20 mg PO DAILY [facility] Last Admin: 08/15/20 08:12 Dose: 20 mg Documented by: Pravastatin Sodium (Pravastatin 20 Mg Tablet) 20 mg PO QHS [facility] Last Admin: 08/14/20 21:47 Dose: 20 mg Documented by: Prochlorperazine Edisylate (Prochlorperazine 10 Mg/2 Ml Vial) 5 mg IV Q4H PRN PRN PRN Reason: Breakthrough nausea/vomiting Psyllium Hydrophilic Mucilloid (Psyllium 1 Packet) 1 packet PO DAILY PRN PRN PRN Reason: Constipation Senna/Docusate Sodium (Senna/Docusate Sodium 1 Tablet) 2 tablet PO BID PRN PRN PRN Reason: Constipation Sodium Bicarbonate (Sodium Bicarbonate 650 Mg Tablet) 1,300 mg PO 4X/DAY [facility] Last Admin: 08/15/20 08:11 Dose: 1,300 mg Documented by: Sodium Chloride (0.9% Saline Lock 10 Ml Syringe) 10 - 40 ml IV UD PRN PRN Reason: SALINE FLUSH Last Admin: 08/14/20 11:04 Dose: 10 ml Documented by: Tamsulosin HCl (Tamsulosin Hcl 0.4 Mg Capsule) 0.4 mg PO DAILY [facility] Last Admin: 08/14/20 11:03 Dose: 0.4 mg Documented by: Medical Necessity - Tobacco Use Smoking Status: Never smoker Tobacco Use: Non-smoker Assessment/Plan All Active Problems (Last Updated 08/12/20 @ 11:[address] Chelsie Cárdenas MD) Acute renal injury (Acute) Anemia (Acute) Monoclonal gammopathy (Acute) This is a 74 years old male patient was referred to the ED by his PCPs office for abnormal blood work and he was found to have acute renal failure and acute on chronic anemia, has been having extensive work-up and he is going for CT-guided kidney biopsy today. #1 acute renal failure: Started on hemodialysis, getting as third session of hemodialysis morning. Etiology is unclear but could be due to ATN. Remained on IV fluids, on p.o. sodium bicarb. Today's BUN is 21, creatinine is 3.55, continue to improve. CT-guided kidney biopsy histopathology is pending. No evidence of obstructive uropathy on CT scan abdomen and pelvis, nonobstructive kidney stones. renal artery duplex reviewed. Nephrology on the case. Double-stranded DNA and JOLANTA were positive. Plan to continue with dialysis, patient will probably be discharged tomorrow with outpatient dialysis. #2 acute on chronic anemia/thrombocytopenia: Today's hemoglobin 7.4 g/dL, still dropping. No active bleeding. Today's platelet count is 47,000, it is trending down. Patient received total of 2 months of packed RBCs, today's hemoglobin is 7.9 g/dL. He had upper EGD today that showed gastric polyps, erythematous antral mucosa, no active bleeding. Already on Protonix. Gastric biopsy was negative for H. pylori. CT-guided bone marrow biopsy done yesterday, results are pending. Protein electrophoresis and kappa lambda light chains are pending. Plan: Transfuse 1 unit of packed RBCs, will discuss with oncology about next plan. #3 hypomagnesemia: Magnesium replaced and corrected, most recent magnesium is 2.5. #4 type 2 diabetes mellitus: Blood sugar stable, continue sliding scale and Accu-Cheks. Metformin, glimepiride and sitagliptin are on hold. #5 paroxysmal atrial fibrillation: Heart rate stable, continue metoprolol for rate control. I do not think this patient will be a good candidate to continue anticoagulation given his anemia and thrombocytopenia. #6 history of wide-complex tachycardia: Stable, rate controlled, blood pressure stable, continue amiodarone. #7 hypertension: Blood pressure stable, continue metoprolol, keep holding losartan because of acute renal failure. #8 GERD: Continue PPI. #9 benign prostatic hypertrophy: Continue Flomax. #10 hyperlipidemia: Continue statins. #11 DVT prophylaxis: SCDs. This note was generated with [employer] dictation software. It may contain incorrect words, spelling, and punctuation that were not noted in checking the note before signing. Inpatient E&M: 08656 Subs Hosp L2
[2020-08-15 10:13] LABS: Pathologist Review Reviewed
[2020-08-15 11:26] LABS: Bedside Glucose 148 mg/dL (70-110)
--- NOTE | 2020-08-15 11:53 | PCM.PN.REN ---
Patient Problems: Active and Suspected Problems (Last Updated 08/12/20 @ 11:[address] Chelsie Cárdenas MD) Acute renal injury (Acute) Anemia (Acute) Monoclonal gammopathy (Acute) Subjective: Denies shortness of breath nausea vomiting or chest pain has no complaints. - Physical Exam Vitals/I&O's: Vital Signs Temp Pulse Resp BP Pulse Ox 98.5 F 70 16 136/66 H 96 08/15/20 11:19 08/15/20 11:19 08/15/20 11:19 08/15/20 11:08/15/20 07:57 Oxygen Flow Rate (L/min) [3] 2 Oxygen Flow Rate (L/min) [2] 2 Oxygen Flow Rate (L/min) [1 ( 2 Initial Baseline)] Oxygen Flow Rate (L/min) 2 Oxygen Delivery Method [4] Room Air Oxygen Delivery Method [3] Nasal Cannula Oxygen Delivery Method [2] Nasal Cannula Oxygen Delivery Method [1 ( Nasal Cannula Initial Baseline)] Oxygen Delivery Method Room Air Weight: 79.2 kg Body Mass Index (BMI) 24.5 Finger Stick Blood Glucose 161 Intake and Output for Last 24 Hours 08/13/20 08/14/20 08/15/20 23:59 23:59 23:59 Intake Total 2776.25 / 2776.25 1605.25 / 1905.25 1500 / 1500 Output Total 3350 / 3625 1670 / 1670 Balance -573.75 / -848.75 -64.75 / 235.25 1500 / 1500 General: Alert, Cooperative HEENT: Atraumatic, Normocephalic Neck: Supple, Trachea Midline Lungs: Clear to auscultation, Normal air movement, No rhonchi Cardiovascular: Normal S1, Normal S2 Abdomen: Bowel Sounds Present, Soft, Non Tender Extremities: No edema - Left IJ tunneled dialysis catheter Microbiology Past 72 Hours 08/12/20 06:45 Interface Orders SARS-CoV-2 Antigen (Rapid) - Final Laboratory Results 08/11/20 08:15: Crossmatch See Detail 08/14/20 16:06: POC Glucose 170 H 08/14/20 21:45: POC Glucose 139 H 08/15/20 06:13: POC Glucose 169 H 08/15/20 06:45: WBC 7.3, RBC 2.33 L, Hgb 7.4 L, Hct 22.2 L, MCV 95.3 H, MCH 31.8, MCHC 33.3, RDW Std Deviation 52.0 H, RDW Coeff of Dano 14.9 H, Plt Count 47 L*, MPV 12.7 H, Immature Gran % (Auto) 0.700, Neut % (Auto) 77.8 H, Lymph % (Auto) 9.3 L, [place] % (Auto) 10.9 H, Eos % (Auto) 0.8, Baso % (Auto) 0.5, Absolute Neuts (auto) 5.7, Absolute Lymphs (auto) 0.68 L, Nucleated RBC % 0, Diff Path Review Reviewed, Platelet Estimate MKD 08/15/20 06:45: Sodium 139, Potassium 3.6, Chloride 105, Carbon Dioxide 30.0, Anion Gap 4 L, BUN 21 H, Creatinine 3.55 H, Estim Creat Clear Calc 19.15, Est GFR (MDRD) Af Amer 22 L, Est GFR (MDRD) Non-Af 18 L, BUN/Creatinine Ratio 5.9 L, Glucose 149 H, Calcium 7.3 L 08/15/20 07:45: Blood Type A POSITIVE, Antibody Screen NEGATIVE, Crossmatch See Detail 08/15/20 11:18: POC Glucose 148 H Current Medications Acetaminophen (Acetaminophen 325 Mg Tablet) 650 mg PO Q6H PRN PRN PRN Reason: Pain Score 1-10/Temp > 100.7 F Last Admin: 08/13/20 21:51 Dose: 650 mg Documented by: Albuterol Sulfate (Albuterol 2.5 Mg/3 Ml Vial.Neb.) 2.5 mg INHALATION Q2H PRN PRN PRN Reason: Dyspnea, wheezing Amiodarone HCl (Amiodarone 200 Mg Tablet) 200 mg PO DINNER [facility] Last Admin: 08/14/20 16:09 Dose: Not Given Documented by: Guaifenesin (Guaifenesin 10 Ml Udc (200mg/10ml)) 20 ml PO Q4H PRN PRN PRN Reason: COUGH Hydralazine HCl (Hydralazine 20 Mg/Ml Vial) 10 mg IV Q4H PRN PRN PRN Reason: SBP > 160 Sodium Chloride () 1,000 mls @ 75 mls/hr IV .[id number] [facility] Last Admin: 08/15/20 04:32 Dose: 75 mls/hr Documented by: Insulin Human Lispro (Insulin Lispro 100 Unit/Ml Insuln.Pen) 0 unit SC [facility]; Protocol Last Admin: 08/15/20 11:20 Dose: Not Given Documented by: Magnesium Chloride (Magnesium Chloride 64 Mg Delay Rel.Tablet) 128 mg PO BID [facility] Last Admin: 08/14/20 21:47 Dose: 128 mg Documented by: Melatonin (Melatonin 3 Mg Tablet) 3 mg PO QHS PRN PRN PRN Reason: INSOMNIA Metoprolol Tartrate (Metoprolol Tartrate 50 Mg Tablet) 50 mg PO BID [facility] Last Admin: 08/14/20 21:46 Dose: 50 mg Documented by: Nitroglycerin (Nitroglycerin (Inpatient Use) 0.4 Mg Tab.Subl) 0.4 mg SUBLINGUAL Q5M PRN PRN Reason: CARDIAC/CHEST PAIN Ondansetron HCl (Ondansetron 4 Mg/2 Ml Vial) 4 mg IV Q8H PRN PRN PRN Reason: NAUSEA/VOMITING Last Admin: 08/10/20 12:49 Dose: 4 mg Documented by: Oxycodone HCl (Oxycodone 5 Mg Tablet) 5 mg PO Q6H PRN PRN PRN Reason: Pain Score 6-10 Last Admin: 08/13/20 17:37 Dose: 5 mg Documented by: Pantoprazole Sodium (Pantoprazole Sodium 20 Mg Tablet) 20 mg PO DAILY [facility] Last Admin: 08/15/20 08:12 Dose: 20 mg Documented by: Pravastatin Sodium (Pravastatin 20 Mg Tablet) 20 mg PO QHS [facility] Last Admin: 08/14/20 21:47 Dose: 20 mg Documented by: Prochlorperazine Edisylate (Prochlorperazine 10 Mg/2 Ml Vial) 5 mg IV Q4H PRN PRN PRN Reason: Breakthrough nausea/vomiting Psyllium Hydrophilic Mucilloid (Psyllium 1 Packet) 1 packet PO DAILY PRN PRN PRN Reason: Constipation Senna/Docusate Sodium (Senna/Docusate Sodium 1 Tablet) 2 tablet PO BID PRN PRN PRN Reason: Constipation Sodium Bicarbonate (Sodium Bicarbonate 650 Mg Tablet) 1,300 mg PO 4X/DAY [facility] Last Admin: 08/15/20 08:11 Dose: 1,300 mg Documented by: Sodium Chloride (0.9% Saline Lock 10 Ml Syringe) 10 - 40 ml IV UD PRN PRN Reason: SALINE FLUSH Last Admin: 08/14/20 11:04 Dose: 10 ml Documented by: Tamsulosin HCl (Tamsulosin Hcl 0.4 Mg Capsule) 0.4 mg PO DAILY [facility] Last Admin: 08/14/20 11:03 Dose: 0.4 mg Documented by: Medical Necessity - Tobacco Use Smoking Status: Never smoker Tobacco Use: Non-smoker Assessment/Plan All Active Problems (Last Updated 08/12/20 @ 11:[address] Chelsie Cárdenas MD) Acute renal injury (Acute) Anemia (Acute) Monoclonal gammopathy (Acute) JAKOB?possible dense ATN vs AIN but at this time etiology unclear Hyperkalemia?resolved Metabolic acidosis-NAG MGUS JOLANTA positive Proteinuria 356 mg per 24 hour collection Nephrolithiasis Renal cyst Anemia Diabetes mellitus Continue p.o. bicarb can stop tomorrow prior to discharge agree with holding losartan Discussed with hospitalist Dr. Cárdenas who talked with Dr. Mckeon hematology and anticoagulation per hematology will be held for now because of thrombocytopenia and anemia. The patient is getting transfused with dialysis now. He was seen during dialysis and is tolerating well. xarelto last dose on 08/06 bp ok JOLANTA positive and antidouble-stranded DNA positive. Will need rheumatology outpatient consult scheduled upon discharge as inpatient rheumatology is not available. Dialysis today and tomorrow. Dialysis on Wednesday after discharge tomorrow in [facility] dialysis unit already arranged as per field nurse case manager Awaiting preliminary result of renal biopsy. My office called repeatedly back still no preliminary report or phone call from pathology yet. hematology seeing patient for MGUS Avoid nephrotoxins
--- NOTE | 2020-08-15 12:38 | DIALYSIS ---
pt ran 4hrs, tolerated well 1 unit PRBC given no issues, no IUF ran even
[2020-08-15] MEDS: Metoprolol Tartrate 50 MG Tablet PO ×2 (13:11→21:19)
[2020-08-15] MEDS: Magnesium Chloride 64 MG Delay Rel.Tablet 128 MG PO (13:11)
[2020-08-15] MEDS: Tamsulosin HCl 0.4 MG Capsule PO (13:12)
--- NOTE | 2020-08-15 15:51 | CASEMGMT ---
MAGGIE ESTES updated by Silvio that patient is setup and approved for outpatient HD at [facility]. Schedule is MWF at 0610. MAGGIE ESTES provided patient with copy HD scheduled. Patient voiced understanding and had no further questions or concerns at this time. CM will continue to follow this patient and plan for a safe discharge.
[2020-08-15 16:31] LABS: Bedside Glucose 198 mg/dL (70-110)
[2020-08-15] MEDS: Amiodarone 200 MG Tablet PO (16:39)
[2020-08-15] MEDS: Ondansetron 4 MG/2 ML Vial IV (16:39)
[2020-08-15] MEDS: 0.9% Saline Lock 10 ML Syringe IV (16:40)
[2020-08-15] MEDS: predniSONE 20 MG Tablet 60 MG PO (17:30)
[2020-08-15] MEDS: Pravastatin 20 MG Tablet PO (21:19)
[2020-08-16] VITALS (9 sets, daily range): BP systolic 134–149; BP diastolic 59–69; PULSE 58–62; RESP 12–18; TEMP 36.8–37.3; O2SAT 92–97
[2020-08-16 00:36] LABS: Bedside Glucose 326 mg/dL (70-110)
[2020-08-16] MEDS: 0.45% Normal Saline 1,000 ML 75 ML IV (02:27)
[2020-08-16 06:29] LABS: Absolute Lymphocyte Count 0.39 X10^3/uL (0.83-4.51); Absolute Neutrophil Count 6.5 X10^3/uL (2.0-7.7); Basophil# 0.01 X10^3/uL; Basophil% 0.1 % (0-1); Hematocrit 25.1 % (40-54); Hemoglobin 8.5 g/dL (13.0-16.5); Lymphocyte # 0.39 X10^3/ul (4.0); Lymphocyte % 5.4 % (19-41); Mean Corp Hgb Conc 33.9 g/dL (32-36); Mean Corpuscular Volume 94.4 fL (80-94); Monocyte# 0.31 X10^3/uL; Monocyte% 4.3 % (0-10); NRBC Flagged by Analyzer 0 % (0-5); Neutrophil % 89.4 % (47-70); POSITIVE COUNT YES; POSITIVE DIFFERENTIAL YES; Platelet Count 53 K/mm3 (150-450); RBC Distribution Width CV 15.5 % (11.6-14.6); RBC Distribution Width SD 54.1 fl (35.1-43.9); Red Blood Count 2.66 M/mm3 (4.6-6.2); White Blood Count 7.3 K/mm3 (4.4-11.0)
[2020-08-16 06:31] LABS: Differential Indicated SCAN CRITERIA MET
[2020-08-16 06:47] LABS: Anion Gap 4 (5-15); BUN 16 mg/dL (7-18); BUN/Creat Ratio 5.3 RATIO (10-20); Calcium,Total 7.6 mg/dL (8.5-10.1); Chloride 104 mmol/L (98-107); Creatinine, Serum 3.03 mg/dL (0.70-1.30); EST Glomerular Filtration Rate 22 mL/min (>60); Est Glom Filt Rate - Afr Amer 26 mL/min (>60); Estimated Creatinine Clearance 22.44 ml/min; Glucose 246 mg/dL (74-106); Potassium 4.2 mmol/L (3.5-5.1); Sodium Level 138 mmol/L (136-145)
[2020-08-16 06:49] LABS: Differential Comment SCANNED; Platelet Estimate MKD DEC (ADEQ)
[2020-08-16] MEDS: Insulin Lispro 100 UNIT/ML INSULN.PEN SC ×2 (06:49→11:53)
[2020-08-16 06:56] LABS: Bedside Glucose 256 mg/dL (70-110)
--- NOTE | 2020-08-16 08:32 | DCINST_ITS ---
- Discharge Diagnoses Current Active Problems: Current Active and Chronic Problems (Last Updated 08/12/20 @ 11:[address] 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) Pure hypercholesterolemia (Chronic) Essential hypertension (Chronic) Atherosclerotic heart disease of [place] coronary artery without angina pectoris (Chronic) CX 20-30% prox-mid stenosis, LAD 20-30% and 10-20% anterior trunk stenosis, OM1 20-30% tapering ostial stenosis, RCA 20% prox stenosis- per cath 08/14/08; LEFT MAIN: Mild luminal irregularities; LEFT ANTERIOR DESCENDING ARTERY: PROX LAD: Mild calcification, Mild luminal irregularities, eccentric: 10 - 25 % Stenosis; MID LAD: Mild luminal irregularities; CIRCUMFLEX ARTERY: Mild luminal irregularities; RIGHT CORONARY ARTERY: PROX RCA: Mild calcification, Mild luminal irregularities, eccentric: 10 - 25 % Stenosis MID RCA: Mild luminal irregularities; AORTIC ROOT: Angiographically normal per cath 05/16/19 Paroxysmal atrial fibrillation (Chronic) You will use the following diet at home:: Calorie/Carbohydrate Controlled (specify 1200, 1400, etc) - 1800 raudel., Renal (restricted protein/sodium) Your food should be the consistency of: Regular Discharge Activity: Return to Normal Activity Weight Bearing Status: Weight bearing as tolerated Call your doctor if you observe: Fever of 101 or Higher, Shortness of breath, Dizziness, Fainting spells, Chest pain, Increased palpitations (irregular heartbeat), Uncontrolled pain Instructions: Discharge Instructions for Kidney Biopsy, ED Procedural Sedation, (Adult), Bone Marrow Biopsy, Hemodialysis Allergies/Adverse Reactions: Allergies scopolamine Adverse Reaction (Verified 08/05/20 16:32) HALLUCINATIONS SOME TYPE OF IV DYE FOR ULTRA BRYCE Adverse Reaction (Uncoded 08/05/20 16:32) backache Had during ultrasound of his heart Medications to take at Discharge Tamsulosin HCl [Flomax] 0.4 mg PO DAILY 01/21/16 sitagliptin 100 mg tablet 100 mg PO DAILY 10/26/17 metoprolol tartrate 50 mg tablet 50 mg PO BID 10/18/18 omega-3 fatty acids 1,000 mg capsule 1,000 mg PO DAILY@1200 cap 01/22/20 pravastatin 20 mg tablet 20 mg PO QHS #90 tab 07/10/20 Amiodarone HCl 200 mg PO DAILY 08/05/20 Amlodipine Besylate [Norvasc] 5 mg PO DAILY #30 tab 08/16/20 Glimepiride [Amaryl] 8 mg PO DAILY #90 tab 08/16/20 Pantoprazole Sodium [Protonix] 40 mg PO DAILY #30 tab 08/16/20 Prednisone 60 mg PO DAILY #180 tab.ds.pk 08/16/20 The following prescriptions were given: Glimepiride [Amaryl] 8 mg PO DAILY #90 tab Transmission Status: Pending to [facility] Amlodipine Besylate [Norvasc] 5 mg PO DAILY #30 tab Transmission Status: Pending to [facility] Prednisone 60 mg PO DAILY #180 tab.ds.pk Transmission Status: Pending to [facility] Pantoprazole Sodium [Protonix] 40 mg PO DAILY #30 tab Transmission Status: Pending to [facility] Orders to be completed after discharge: CXR for Line Placement [RAD] Facility: [facility], Location: [facility] Please follow up with your Primary Care Physician in: 1 week. Test Results: Test results from this visit will be discussed in further detail at your follow-up appointment, if applicable. Please Follow Up With: Jonathan Crump MD When: 1-2 weeks. Please Follow Up With: Blake Mckeon DO When: 1-2 weeks. Please Follow Up With: Blake Blas MD When: 2-3 weeks.
[2020-08-16] MEDS: Heparin 10,000 UNITS/10 ML Vial IV (09:05)
--- NOTE | 2020-08-16 09:09 | CASEMGMT ---
Addendum entered by Reggie Zhu 08/16/20 15:34: discharge order is in. Call placed to Josi @ [facility] and she was made aware pt is discharging home today and plan for 1st OP HD on Saturday 08/19 remains. Original Note: MAGGIE ESTES NOTE: Pt being discharged today. MAGGIE ESTES to room to talk w/pt. Introduced self and role of MAGGIE ESTES. Pt aware OP HD is @ [facility] in [place] MWF @ 0610 and inquired about location--asking if it was located on [address]. He was made aware that is the correct location. He denies having other questions/needs/concerns. Inquired if pt has a glucometer @ home. He states he does not and that he does not want one at this time. He was made aware if he does want one in the future, that he could talk to his PCP for a script for one to be billed through his insurance and also made aware of inexpensive [employer] brand @ [employer] [place] that he can purchase OTC. Norah TALAVERA RN, CM
--- NOTE | 2020-08-16 11:47 | DIALYSIS ---
Pt completed hemodialysis treatment via right tunneled dialysis CVC, no extra fluid off. Pt tolerated treatment well.
[2020-08-16] MEDS: Tamsulosin HCl 0.4 MG Capsule PO (11:52)
[2020-08-16] MEDS: Metoprolol Tartrate 50 MG Tablet PO (11:52)
[2020-08-16] MEDS: Sodium Bicarbonate 650 MG Tablet 1300 MG PO (11:53)
[2020-08-16] MEDS: predniSONE 20 MG Tablet 60 MG PO (11:58)
[2020-08-16] MEDS: Pantoprazole Sodium 40 MG Tablet PO (11:58)
--- NOTE | 2020-08-16 11:58 | DS.PCM_ITS ---
Discharge Date and Diagnosis - Problem List Patient Problems: Active and Suspected Problems (Last Updated 08/12/20 @ 11:[address] Chelsie Cárdenas MD) Acute renal injury (Acute) Anemia (Acute) Monoclonal gammopathy (Acute) Date of Admission: 08/05/20 Date of Discharge: 08/16/20 - Primary Discharge Diagnosis Acute Problems: Active Problems (Last Updated 08/12/20 @ 11:[address] Chelsie Cárdenas MD) #1 acute renal failure, reportedly renal biopsy revealed acute interstitial nephritis, started on hemodialysis, discharged on prednisone. #2 acute on chronic anemia/thrombocytopenia, bone marrow biopsy was negative for lymphoproliferative disorder or plasma cell neoplasm. #3 hypomagnesemia, magnesium replaced and corrected per protocol. - Secondary Discharge Diagnosis Chronic Problems: Chronic Problems (Last Updated 08/12/20 @ 11:[address] 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) Pure hypercholesterolemia (Chronic) Essential hypertension (Chronic) Atherosclerotic heart disease of [place] coronary artery without angina pectoris (Chronic) CX 20-30% prox-mid stenosis, LAD 20-30% and 10-20% anterior trunk stenosis, OM1 20-30% tapering ostial stenosis, RCA 20% prox stenosis- per cath 08/14/08; LEFT MAIN: Mild luminal irregularities; LEFT ANTERIOR DESCENDING ARTERY: PROX LAD: Mild calcification, Mild luminal irregularities, eccentric: 10 - 25 % Stenosis; MID LAD: Mild luminal irregularities; CIRCUMFLEX ARTERY: Mild luminal irregularities; RIGHT CORONARY ARTERY: PROX RCA: Mild calcification, Mild luminal irregularities, eccentric: 10 - 25 % Stenosis MID RCA: Mild luminal irregularities; AORTIC ROOT: Angiographically normal per cath 05/16/19 Paroxysmal atrial fibrillation (Chronic) Gastroesophageal reflux disease (Chronic) Diabetes mellitus, type II (Chronic) Hospital Course and Treatment Imaging Results: Clinical Impression(s) from Imaging Studies Abdomen/Pelvis CT 08/05/20 13:54 IMPRESSION: 2 punctate nonobstructive calculi in the lower pole. The right kidney Status post cholecystectomy. Prostatic enlargement with indentation of the bladder base. Electronically Signed: Stanton Betancourt, at 15:03 EST , Service support , Renal Ultrasound 08/06/20 07:53 IMPRESSION: Normal ultrasound of the kidneys and urinary bladder. Electronically Signed: Stanton Betancourt, at 13:59 EST , Service support , Biopsy CT 08/12/20 06:42 IMPRESSION: Successful CT guided percutaneous kidney biopsy. Electronically Signed: Stanton Betancourt MD at 11:09 EST , Service support , Bone Osseous Survey 08/12/20 09:00 IMPRESSION: No destructive bone lesions identified Mild/moderate scattered osteoarthritic changes Electronically Signed: Dima Gibson, DO at 10:01 EST Tel , Service support , Chest X-Ray 08/13/20 11:45 IMPRESSION: The tip of the right dialysis catheter is at the junction of the superior vena cava and right atrium. Electronically Signed: Stanton Betancourt MD at 12:04 EST , Service support , Biopsy CT 08/14/20 09:08 IMPRESSION: Successful CT guided bone marrow biopsy and bone marrow aspirates of the posterior right iliac bone, as described above. The conscious sedation protocol was followed. Electronically Signed: Stanton Betancourt MD at 10:08 EST , Service support , Dr. Brower, nephrology. Dr. Mckeon, oncology. Dr. Mcleod, general surgery. Operations: None Procedures: 2-D Echocardiogram, Blood transfusion, Dialysis, EKG, - - CT-guided kidney biopsy. CT-guided bone marrow biopsy. Summary of Care Provided: Patient seen and examined on the day of discharge and appeared to be stable to be discharged home. He denied any complaints. He is scheduled to go for dialysis on Mondays, Wednesdays and Fridays as outpatient. His vital signs were stable. This is a 74 years old male patient was referred to the ED by his PCPs office for abnormal blood work and he was found to have acute renal failure and acute on chronic anemia. #1 acute renal failure: Status post CT-guided kidney biopsy, reportedly histopathology revealed acute interstitial nephritis. Patient was started on hemodialysis and discharged on prednisone. Initially, patient was treated with IV fluids, nephrotoxic medications were discontinued and kidney function improved slowly but needed to be started on dialysis. Patient had placement of right internal jugular tunneled dialysis catheter by general surgery. Patient is here with 4 sessions of hemodialysis during this hospital stay and his kidney function improved. Patient discharged home, plan on outpatient dialysis on Mondays, Wednesdays and Fridays, discharged on prednisone 60 mg p.o. daily for total of 2 weeks, plan to taper down prednisone by 10 mg every 3 days until reached dose of 10 mg daily, follow-up with nephrology in 1 to 2 weeks. #2 acute on chronic anemia/thrombocytopenia: Status post CT-guided bone marrow biopsy that showed no evidence of lymphoproliferative disorder or plasma cell neoplasm. Oncology consulted. Patient received total of 3 units of packed RBCs, discharge hemoglobin was 8.5 g/dL. Upon discharge, platelet count was 52,000. There was no evidence of active bleeding. He had upper EGD today that showed gastric polyps, erythematous antral mucosa, no active bleeding. He was kept on Protonix. Gastric biopsy was negative for H. pylori. Plan to follow-up with oncology as outpatient. #3 hypomagnesemia: Magnesium replaced and corrected, discharge magnesium is 2.5. #4 type 2 diabetes mellitus: Metformin discontinued because of the kidney failure and glimepiride increased to 8 mg p.o. daily. #5 paroxysmal atrial fibrillation: Heart rate stable, continued metoprolol for rate control. Xarelto discontinued because of anemia and thrombocytopenia. #6 history of wide-complex tachycardia: Stable, rate was controlled, blood pressure stable, continued on amiodarone. #7 hypertension: Blood pressure stable, continued metoprolol, started on Norvasc. Losartan discontinued because of acute renal failure. #8 GERD: Continued on Protonix. #9 benign prostatic hypertrophy: Continued on Flomax. Patient discharged home in a stable medical condition, discharged on prednisone taper as mentioned above, Metformin discontinued and dose of glimepiride increased to 8 mg p.o. daily, Rocephin discontinued and started on Norvasc 5 mg p.o. daily, discharged on Protonix 40 mg p.o. daily, he is going with outpatient dialysis on Mondays, Wednesdays and Fridays, plan to follow-up with PCP in 1 week, follow-up with nephrology in 1 to 2 weeks, follow-up with oncology in 1 to 2 weeks, follow-up with cardiology in 2 to 3 weeks. This note was generated with [employer] software. It may contain incorrect words, spelling, and punctuation that were not noted in checking the note before signing. Patient Problems: Active and Suspected Problems (Last Updated 08/12/20 @ 11:[address] Chelsie Cárdenas MD) Acute renal injury (Acute) Anemia (Acute) Monoclonal gammopathy (Acute) - Physical Exam Vitals/I&O's: Vital Signs Temp Pulse Resp BP Pulse Ox 98.2 F 58 L 16 149/69 H 95 08/16/20 11:30 08/16/20 11:30 08/16/20 11:30 08/16/20 11:30 08/16/20 09:07 Oxygen Flow Rate (L/min) [3] 2 Oxygen Flow Rate (L/min) [2] 2 Oxygen Flow Rate (L/min) [1 ( 2 Initial Baseline)] Oxygen Flow Rate (L/min) 2 Oxygen Delivery Method [4] Room Air Oxygen Delivery Method [3] Nasal Cannula Oxygen Delivery Method [2] Nasal Cannula Oxygen Delivery Method [1 ( Nasal Cannula Initial Baseline)] Oxygen Delivery Method Room Air Weight: 173 lb 8.061 oz Body Mass Index (BMI) 24.5 Finger Stick Blood Glucose 161 Intake and Output for Last 24 Hours 08/14/20 08/15/20 08/16/20 23:59 23:59 23:59 Intake Total 1605.25 / 1905.25 3379.25 / 3379.25 1107.5 / 1107.5 Output Total 1670 / 1670 2150 / 2150 600 / 600 Balance -64.75 / 235.25 1229.25 / 1229.25 507.5 / 507.5 General: Alert, Oriented x3, Cooperative, No apparent distress HEENT: Atraumatic, PERRLA, EOMI, Normocephalic Oral: Moist Mucosa, No Gingival or Mucosal Lesions/ Ulcerations Neck: Supple, No JVD, Negative Carotid Bruits, Trachea Midline, Thyroid Normal Size and Texture Lungs: Clear to auscultation, Normal air movement, No rhonchi, No wheeze, No rales Cardiovascular: Regular rate, Regular Rhythm, Normal S1, Normal S2, PMI Normal Abdomen: Bowel Sounds Present, Soft, Non Tender, Non-Distended, No Hepato- splenomegaly Extremities: No clubbing, No cyanosis, No edema Skin: No rashes, No breakdown Lymphatic: No Cervical, Supraclavicular, or Inguinal Adenopathy Neurological: Cranial nerves II-XII grossly intact, Neuro grossly intact Psych/Mental Status: Normal Affect, Appropriate Laboratory Results 08/15/20 07:45: Crossmatch See Detail 08/15/20 16:23: POC Glucose 198 H 08/15/20 21:17: POC Glucose 326 H 08/16/20 06:20: WBC 7.3, RBC 2.66 L, Hgb 8.5 L, Hct 25.1 L, MCV 94.4 H, MCH 32.0, MCHC 33.9, RDW Std Deviation 54.1 H, RDW Coeff of [place] 15.5 H, Plt Count 53 L, MPV 12.0, Immature Gran % (Auto) 0.800, Neut % (Auto) 89.4 H, Lymph % (Auto) 5.4 L, [place] % (Auto) 4.3, Eos % (Auto) 0.0, Baso % (Auto) 0.1, Absolute Neuts (auto) 6.5, Absolute Lymphs (auto) 0.39 L, Nucleated RBC % 0, Differential Comment SCANNED, Platelet Estimate MKD 08/16/20 06:20: Sodium 138, Potassium 4.2, Chloride 104, Carbon Dioxide 30.0, Anion Gap 4 L, BUN 16, Creatinine 3.03 H, Estim Creat Clear Calc 22.44, Est GFR (MDRD) Af Amer 26 L, Est GFR (MDRD) Non-Af 22 L, BUN/Creatinine Ratio 5.3 L, Glucose 246 H, Calcium 7.6 L 08/16/20 06:46: POC Glucose 256 H Current Medications Acetaminophen (Acetaminophen 325 Mg Tablet) 650 mg PO Q6H PRN PRN PRN Reason: Pain Score 1-10/Temp > 100.7 F Last Admin: 08/13/20 21:51 Dose: 650 mg Documented by: Albuterol Sulfate (Albuterol 2.5 Mg/3 Ml Vial.Neb.) 2.5 mg INHALATION Q2H PRN PRN PRN Reason: Dyspnea, wheezing Amiodarone HCl (Amiodarone 200 Mg Tablet) 200 mg PO DINNER [facility] Last Admin: 08/15/20 16:39 Dose: 200 mg Documented by: Guaifenesin (Guaifenesin 10 Ml Udc (200mg/10ml)) 20 ml PO Q4H PRN PRN PRN Reason: COUGH Hydralazine HCl (Hydralazine 20 Mg/Ml Vial) 10 mg IV Q4H PRN PRN PRN Reason: SBP > 160 Sodium Chloride () 1,000 mls @ 75 mls/hr IV .[id number] [facility] Last Admin: 08/16/20 02:27 Dose: 75 mls/hr Documented by: Insulin Human Lispro (Insulin Lispro 100 Unit/Ml Insuln.Pen) [address] [facility]; Protocol Last Admin: 08/16/20 06:49 Dose: 2 u Documented by: Melatonin (Melatonin 3 Mg Tablet) 3 mg PO QHS PRN PRN PRN Reason: INSOMNIA Metoprolol Tartrate (Metoprolol Tartrate 50 Mg Tablet) 50 mg PO BID [facility] Last Admin: 08/15/20 21:19 Dose: 50 mg Documented by: Nitroglycerin (Nitroglycerin (Inpatient Use) 0.4 Mg Tab.Subl) 0.4 mg SUBLINGUAL Q5M PRN PRN Reason: CARDIAC/CHEST PAIN Ondansetron HCl (Ondansetron 4 Mg/2 Ml Vial) 4 mg IV Q8H PRN PRN PRN Reason: NAUSEA/VOMITING Last Admin: 08/15/20 16:39 Dose: 4 mg Documented by: Oxycodone HCl (Oxycodone 5 Mg Tablet) 5 mg PO Q6H PRN PRN PRN Reason: Pain Score 6-10 Last Admin: 08/13/20 17:37 Dose: 5 mg Documented by: Pantoprazole Sodium (Pantoprazole Sodium 40 Mg Tablet) 40 mg PO DAILY [facility] Pravastatin Sodium (Pravastatin 20 Mg Tablet) 20 mg PO QHS [facility] Last Admin: 08/15/20 21:19 Dose: 20 mg Documented by: Prednisone (Prednisone 20 Mg Tablet) 60 mg PO DAILY@0800 [facility] Last Admin: 08/15/20 17:30 Dose: 60 mg Documented by: Prochlorperazine Edisylate (Prochlorperazine 10 Mg/2 Ml Vial) 5 mg IV Q4H PRN PRN PRN Reason: Breakthrough nausea/vomiting Psyllium Hydrophilic Mucilloid (Psyllium 1 Packet) 1 packet PO DAILY PRN PRN PRN Reason: Constipation Senna/Docusate Sodium (Senna/Docusate Sodium 1 Tablet) 2 tablet PO BID PRN PRN PRN Reason: Constipation Sodium Bicarbonate (Sodium Bicarbonate 650 Mg Tablet) 1,300 mg PO 4X/DAY [facility] Last Admin: 08/15/20 21:19 Dose: 1,300 mg Documented by: Sodium Chloride (0.9% Saline Lock 10 Ml Syringe) 10 - 40 ml IV UD PRN PRN Reason: SALINE FLUSH Last Admin: 08/15/20 16:40 Dose: 10 ml Documented by: Tamsulosin HCl (Tamsulosin Hcl 0.4 Mg Capsule) 0.4 mg PO DAILY [facility] Last Admin: 08/15/20 13:12 Dose: 0.4 mg Documented by: Discharge Activity: Return to Normal Activity Weight Bearing Status: Weight bearing as tolerated Call your doctor if you observe: Fever of 101 or Higher, Shortness of breath, Dizziness, Fainting spells, Chest pain, Increased palpitations (irregular heartbeat), Uncontrolled pain Home Medications: Medications to take at Discharge Tamsulosin HCl [Flomax] 0.4 mg PO DAILY 01/21/16 sitagliptin 100 mg tablet 100 mg PO DAILY 10/26/17 metoprolol tartrate 50 mg tablet 50 mg PO BID 10/18/18 omega-3 fatty acids 1,000 mg capsule 1,000 mg PO DAILY@1200 cap 01/22/20 pravastatin 20 mg tablet 20 mg PO QHS #90 tab 07/10/20 Amiodarone HCl 200 mg PO DAILY 08/05/20 Amlodipine Besylate [Norvasc] 5 mg PO DAILY #30 tab 08/16/20 Glimepiride [Amaryl] 8 mg PO DAILY #90 tab 08/16/20 Pantoprazole Sodium [Protonix] 40 mg PO DAILY #30 tab 08/16/20 Prednisone 60 mg PO DAILY #180 tab.ds.pk 08/16/20 Following Prescriptions Were Given to Patient: Glimepiride [Amaryl] 8 mg PO DAILY #90 tab Transmission Status: Received by [facility] Amlodipine Besylate [Norvasc] 5 mg PO DAILY #30 tab Transmission Status: Received by [facility] Prednisone 60 mg PO DAILY #180 tab.ds.pk Transmission Status: Received by [facility] Pantoprazole Sodium [Protonix] 40 mg PO DAILY #30 tab Transmission Status: Received by [facility] Other Amb Orders: CXR for Line Placement [RAD] Facility: [facility], Location: [facility] Primary Care Physician: Guanakito Quarles MD [Primary Care Provider] - Please follow up with your Primary Care Physician in: 1 week. Please Follow Up With: Jonathan Crump MD When: Wednesday Please Follow Up With: Blake Mckeon DO When: 1-2 weeks. Please Follow Up With: Blake Blas MD When: Wednesday Please Follow Up With: Guanakito Quarles MD When: Wednesday Patient Instructions: Hemodialysis, Discharge Instructions for Kidney Biopsy, ED Procedural Sedation, (Adult), Bone Marrow Biopsy Disposition: Home Minutes spent on discharge:: 35 Patient Condition:: Stable Medical Necessity - Tobacco Use Smoking Status: Never smoker Tobacco Use: Non-smoker Meaningful Use Info Meaningful Use Diagnoses (Choose all that apply): None applicable Inpatient E&M: 96405 Disch Hosp
[2020-08-16 12:06] LABS: Bedside Glucose 212 mg/dL (70-110)
--- NOTE | 2020-08-16 13:32 | PHA.DC.MC ---
Pharmacy Service has performed discharge medication reconciliation and counseling for this patient. 1. PREDNISONE 60MG PO DAILY X 12 DAYS, THEN 50MG X3 DAYS, THEN 40MG X 3 DAYS, THEN 30MG X 3 DAYS, THEN 20MG X 3 DAYS, THEN 10MG THEREAFTER UNTIL FOLLOW-UP WITH LIGHTOUT EXAMINER 2. PANTOPRAZOLE 40MG PO DAILY The patient's discharge medication list was reviewed for discrepancies and discrepancies were resolved. Home Medications Tamsulosin HCl [Flomax] 0.4 mg PO DAILY 01/21/16 sitagliptin 100 mg tablet 100 mg PO DAILY 10/26/17 metoprolol tartrate 50 mg tablet 50 mg PO BID 10/18/18 omega-3 fatty acids 1,000 mg capsule 1,000 mg PO DAILY@1200 cap 01/22/20 pravastatin 20 mg tablet 20 mg PO QHS #90 tab 07/10/20 Amiodarone HCl 200 mg PO DAILY 08/05/20 Amlodipine Besylate [Norvasc] 5 mg PO DAILY #30 tab 08/16/20 Glimepiride [Amaryl] 8 mg PO DAILY #90 tab 08/16/20 Pantoprazole Sodium [Protonix] 40 mg PO DAILY #30 tab 08/16/20 Prednisone 60 mg PO DAILY #180 tab.ds.pk 08/16/20 The patient was counseled on the following discharge medications and changes in medications for homegoing were reviewed. The Reason for Use, instructions for use, and potential side effects were reviewed for all new medications. The patient's questions regarding all of their medications were answered. The patient was able to verbally demonstrate an understanding of their discharge medications. Patient counseled by certified pharmacy tech
--- NOTE | 2020-08-19 15:16 | CASEMGMT ---
MAGGIE ESTES Discharge Follow-up Phone Call: STEPHEN: Gus Strata: 3 Call Date: 08/19/20 Discharge Date: 08/16/2020 Time of Call: 1515 Duration: 5 min Admitting Diagnosis: JAKOB MAGGIE ESTES completed follow-up phone call after recent hospitalization. Patient states he is doing alright. Patient went to HD without any issues. Patient had no questions or concerns at this time regarding discharge instructions. Patient was able to fill prescriptions without any issues. Patient has follow-up appts scheduled. Patient had no further questions or concerns.
== END 2020-08-16 15:00 | disposition home or self-care (01) | DRG 674 ==
LOC: ED 15:51 → MS3 16:00
PROVIDERS: Anesthesiology; Internal Medicine; Internal Medicine Hematology & Oncology; Surgery; Admitting Provider Family Medicine; Emergency Provider Emergency Medicine; PCP Family Medicine; Visit Provider Hospitalist
PROC: 0DJ08ZZ Inspection of Upper Intestinal Tract, Via Natural or Artificial Opening Endoscopic (ICD-10-PCS; CPT 43235; principal; 2020-08-12 07:45)
PROC: 05HM33Z Insertion of Infusion Device into Right Internal Jugular Vein, Percutaneous Approach (ICD-10-PCS; principal; 2020-08-13 11:45)
DX: N17.9 Acute kidney failure, unspecified (principal); E87.2 Acidosis; I47.2 Ventricular tachycardia; D64.9 Anemia, unspecified; D69.6 Thrombocytopenia, unspecified; N10 Acute pyelonephritis; I25.10 Atherosclerotic heart disease of native coronary artery without angina pectoris; E11.9 Type 2 diabetes mellitus without complications; I10 Essential (primary) hypertension; E87.5 Hyperkalemia; K21.9 Gastro-esophageal reflux disease without esophagitis; I48.0 Paroxysmal atrial fibrillation; K31.7 Polyp of stomach and duodenum; E78.00 Pure hypercholesterolemia, unspecified; E83.42 Hypomagnesemia; E86.0 Dehydration; F41.9 Anxiety disorder, unspecified; D47.2 Monoclonal gammopathy; N40.0 Benign prostatic hyperplasia without lower urinary tract symptoms; E78.5 Hyperlipidemia, unspecified; N28.1 Cyst of kidney, acquired; N20.0 Calculus of kidney; Z79.84 Long term (current) use of oral hypoglycemic drugs; Z79.899 Other long term (current) drug therapy; Z79.01 Long term (current) use of anticoagulants; Z20.822 Contact with and (suspected) exposure to COVID-19
CPT/HCPCS: 36415; 71045; 74176; 76000; 76770; 77012; 77075; 80048; 80053; 80074; 81001; 82274; 82570; 82607; 82728; 82746; 82784; 82962; 83036; 83520; 83540; 83550; 83615; 83735; 83883; 84156; 84165; 84166; 84300; 84443; 85025; 85027; 85045; 85610; 85730; 86038; 86160; 86225; 86235; 86256; 86334; 86335; 86592; 86703; 86850; 86900; 86901; 86920; 86922; 87426; 88300; 88305; 88311; 88313; 88341; 88342; 88346; 88348; 88350; 90937; 93005; 93306; 93975; 97161; 97166; 97802; 97803; 99155; 99156; 99251; 99285; J7030; J7040; P9016; P9040; A4216; C1750; G0257; G0463; J0696; J2405; J7799

== ENCOUNTER → 2020-08-12 | Outpatient (CLI) | payer MEDICARE, OTHER, SELFPAY ==
--- NOTE | 2020-08-12 07:50 | EGD_PTH ---
PATIENT: MALI MARTIN LOC: ANGI U#:[id number] AGE/SX: 74/M ROOM: RE08/12/[address]: Dr. Mumtaz Brower MD : 1945 BED: DIS: 08/12/2020 SPEC #: [id number] RECD: 08/12/20 11:20 STATUS: MELINDA RE #: [id number] MERLE: 08/12/20 07:[address]: Ana Rosa Mcleod DEPT: SURGICAL PATHOLOGY RECD BY: Alison Cuba ENTERED: 08/12/20 12:36 SP TYPE: EGD BIOPSY OTHR DR: MD Dr. Stanton Silva MD Dr. John Prokop, MD Tissues: A - Gastric mucous membrane B - Gastric mucous membrane C - Gastric mucous membrane D - Gastric mucous membrane Procedures: Surgery Specimen Level IV Comments: @ Ordering doctor for SUIV edited from to @ by SALVADOROD at 08/12/20 1432 @ Submitting doctor edited from to @ by RGOOD at 08/12/202 HEADER OPERATION: EGD ([facility] [place]) PRE-OP DIAGNOSIS: Anemia TISSUE SUBMITTED: A - Antrum biopsy for H. pylori and path, B - Gastric polyp biopsy and gastric polyps snared, C - Fundic polyp, D - GE junction biopsies MICROSCOPIC DIAGNOSIS A. Antrum, biopsy: Mild gastritis. See microscopic description and comment. B. Gastric polyp biopsy and gastric polyp snare: Fragments of fundic gland polyp. C. Fundic gland polyp, biopsy: Fragments of fundic gland polyp. D. GE junction, biopsy: A piece of squamous mucosa, no pathologic diagnosis. SJ:lina 08/13/2020 COMMENT A. The results of immunohistochemistry for Helicobacter pylori will be reported separately ([id number]). MICROSCOPIC DESCRIPTION Slides are reviewed. A. The specimen shows fragments of gastric mucosa with chronic inflammatory cell infiltrates in the lamina propria consisting of lymphocytes and plasma cells, consistent with mild chronic gastritis. GROSS DESCRIPTION A - Received in fixative is one container labeled with the patient's name and designated antrum biopsy. The specimen consists of one irregular fragment of light felder soft tissue that measures 0.3 x 0.3 x 0.1 cm. The specimen is totally submitted in one cassette. B - Received in fixative is one container labeled with the patient's name and designated gastric polyp biopsy and gastric polyp snared. The specimen consists of a felder-pink polyp measuring 1 x 0.6 x 0.6 cm. Apparent base is inked and the polyp is bisected. Also present in the container are multiple fragments of felder soft tissue measuring in aggregate 1 x 0.5 x 0.2 cm. The entire specimen is submitted in one cassette. C - Received in fixative is one container labeled with the patient's name and designated fundic polyp. The specimen consists of two irregular fragments of light felder soft tissue that in aggregate measure 0.6 x 0.5 x 0.2 cm. The specimen is totally submitted in one cassette. D - Received in fixative is one container labeled with the patient's name and designated GE junction biopsy. The specimen consists of one irregular fragment of light felder soft tissue that measures 0.2 x 0.1 x 0.1 cm. The specimen is totally submitted in one cassette. / SJ:rg 08/12/20 TC:5 CPT: 28125 x4
[2020-08-12 11:08] VITALS: BMI 22.3
== END | disposition home or self-care (01) ==
LOC: LABSPEC 11:10
PROVIDERS: PCP Family Medicine; Referring Provider Internal Medicine; Visit Provider Internal Medicine
DX: N17.9 Acute kidney failure, unspecified (principal)
CPT/HCPCS: 88305

== ENCOUNTER → 2020-08-14 15:25 | Outpatient (CLI) | payer MEDICARE, OTHER, SELFPAY ==
[2020-08-12 07:02] VITALS: BMI 22.6
[2020-08-14 12:16] VITALS: BMI 24.5
== END ==
PROVIDERS: PCP Family Medicine; Referring Provider Internal Medicine Hematology & Oncology; Visit Provider Internal Medicine Hematology & Oncology
DX: Z00.00 Encounter for general adult medical examination without abnormal findings (principal)

== ENCOUNTER 2020-08-25 19:07 | Inpatient (IN) | payer MEDICARE, OTHER, SELFPAY ==
[2020-08-14 12:16] VITALS: BMI 24.5
[2020-08-25] VITALS (14 sets, daily range): BP systolic 131–174; BP diastolic 65–91; PULSE 59–98; RESP 13–20; TEMP 36.3–36.6; O2SAT 97–100; BMI 28.2; BMI 25.2
--- NOTE | 2020-08-25 19:17 | EKG12_ITS ---
Test Reason : NEURO Blood Pressure : / mmHG Vent. Rate : 088 BPM Atrial Rate : 234 BPM P-R Int : 000 ms QRS Dur : 098 ms QT Int : 408 ms P-R-T Axes : 000 026 057 degrees QTc Int : 493 ms Atrial fibrillation Prolonged QT Abnormal ECG Confirmed by RUBEN WALTON MD ([id number]), image editor LO ARRINGTON ([id number]) on 08/26/2020 1:15:35 PM Referred By: BRIDGETT Confirmed By:RUBEN WALTON MD
--- NOTE | 2020-08-25 19:17 | CT_ITS ---
We are attempting to reach an attending provider to discuss findings. An addendum with communication details will be sent when the communication is complete. STUDY: CT HEAD STROKE PROTOCOL W/O CONTRAST INJECTION REASON FOR EXAM: Male, 74 years old. NEURO TECHNIQUE: Transaxial CT imaging of the brain was performed without administration of intravenous contrast material. Individualized dose optimization techniques were used for this CT. COMPARISON: No relevant priors. FINDINGS: Normal soft tissue structures. Normal calvarium. Normal size ventricles and extra-axial spaces for the patient''s age. Normal white matter tracts of the cerebral hemispheres. Normal basal ganglia and thalami. Normal brainstem. Normal cerebellum. There is no intracranial hemorrhage. There are no findings of an acute ischemic infarction. Normal visualized paranasal sinuses. ASPECT score: 10 CT/STROKE Brain/Head without Cont IMPRESSION: Normal unenhanced CT scan of the brain. Electronically Signed: Bucky Klein MD at 19:43 EST , Service support ,
[2020-08-25 19:21] LABS: Bedside Glucose > 500 mg/dL (70-110)
--- NOTE | 2020-08-25 19:25 | CT_ITS ---
STUDY: CTA HEAD AND NECK WITH CONTRAST REASON FOR EXAM: Male, 74 years old. CVA, 5 EPISODES OF APHASIA 30 MINS AGO RADIATION DOSAGE (If Supplied By Facility): CTDIvol = ( 29.31 ) mGy, DLP = ( 717.95 ) mGycm TECHNIQUE: CT angiography was performed with a multi-detector CT scanner. Data acquisition was obtained from the skull base through the vertex following intravenous administration of IV 75mL [id number]-[id number]. MIP images were reconstructed from the axial data set. Post-processing of the angiographic images was performed, with multiplanar reformation and 3D reconstruction. Individualized dose optimization techniques were used for this CT. COMPARISON: No relevant priors. FINDINGS: Normal bilateral petrous carotid arteries. There is calcified plaque formation of the right cavernous carotid artery, with a moderate stenosis (50-75%). There is calcified plaque formation of the left cavernous carotid artery, with a moderate stenosis (50-75%). Normal right A1 segments of the anterior cerebral artery. Normal left A1 segments of the anterior cerebral artery. Normal intact anterior communicating artery (ACOM). Normal bilateral A2 segments of the anterior cerebral arteries. Normal right M1 and M2 segments of the middle cerebral arteries, with a normal M1 bifurcation. Normal left M1 and M2 segments of the middle cerebral arteries, with a normal M1 bifurcation. Normal right posterior communicating artery (PCOM). Normal left posterior communicating artery (PCOM). Normal bilateral vertebral arteries. Normal basilar artery with a normal basilar bifurcation. The visualized bilateral superior cerebellar (SCA) arteries are normal. Normal bilateral P1, P2 and visualized P3 segments of the posterior cerebral arteries. There is no demonstrated aneurysm of the [place] of [place]. There is no demonstrated abnormality of the visualized brain. AORTIC ARCH: Normal visualized aortic arch. Normal origins of the brachiocephalic, left common carotid, and left subclavian arteries. RIGHT CAROTID ARTERIES: Normal right common carotid artery (CCA). There is moderate atherosclerotic plaque formation with mild narrowing of the right carotid bulb. There is moderate atherosclerotic plaque formation of the origin of the right internal carotid artery with less than 50% cross sectional diameter stenosis. Normal visualized cervical portion of the right internal carotid artery. Normal origin of the right external carotid artery (ECA). LEFT CAROTID ARTERIES: Normal left common carotid artery (CCA). There is mild atherosclerotic plaque formation with minimal narrowing of the left carotid bulb. There is mild atherosclerotic plaque formation of the origin of the left internal carotid artery with less than 50% cross sectional diameter stenosis. Normal visualized cervical portion of the left internal carotid artery. Normal origin of the left external carotid artery (ECA). VERTEBRAL ARTERIES: Normal bilateral vertebral arteries. CT/CTA Head AND Neck W/ Contrast IMPRESSION: Moderate calcified plaque of the cavernous carotid arteries with bilateral moderate grade intracranial stenosis. Bilateral calcified ICA plaque with mild grade stenosis of the right ICA and no significant stenosis on the left. No focal acute thrombi or occlusions. N.B. : The above information has been verbally conveyed by Bucky Klein MD to Elis Nolan MD, on 08/25/2020 19:49:40 (ET). Electronically Signed: Bucky Klein MD at 19:50 EST , Service support ,
[2020-08-25 19:30] LABS: Absolute Lymphocyte Count 0.38 X10^3/uL (0.83-4.51); Absolute Neutrophil Count 18.2 X10^3/uL (2.0-7.7); Basophil# 0.03 X10^3/uL; Basophil% 0.1 % (0-1); Hematocrit 30.1 % (40-54); Hemoglobin 9.5 g/dL (13.0-16.5); Lymphocyte # 0.38 X10^3/ul (4.0); Lymphocyte % 1.9 % (19-41); Mean Corp Hgb Conc 31.6 g/dL (32-36); Mean Corpuscular Hgb 31.3 pg (27.0-32.0); Mean Platelet Vol. 12.8 fl (6.2-12.0); Monocyte# 1.18 X10^3/uL; Monocyte% 5.8 % (0-10); NRBC Flagged by Analyzer 0 % (0-5); Neutrophil # 18.22 X10^3/uL (2.7-7.7); POSITIVE DIFFERENTIAL YES; Platelet Count 104 K/mm3 (150-450); RBC Distribution Width CV 14.7 % (11.6-14.6); RBC Distribution Width SD 53.4 fl (35.1-43.9); Red Blood Count 3.04 M/mm3 (4.6-6.2); White Blood Count 20.5 K/mm3 (4.4-11.0)
[2020-08-25 19:31] LABS: Differential Indicated SCAN CRITERIA MET
[2020-08-25 19:32] LABS: International Normalized Ratio 1.2; Partial Thromboplast Time 22.6 Seconds (24.1-36.2); Prothrombin Time (Protime)PT. 14.4 SECONDS (11.7-14.9)
--- NOTE | 2020-08-25 19:49 | RAD_ITS ---
STUDY: X-RAY CHEST REASON FOR EXAM: Male, 74 years old. dysphagia per family tonight, concern for stroke. TECHNIQUE: Single AP portable view of the chest. COMPARISON: 08/13/2020. FINDINGS: Double-lumen dialysis catheter terminates in the mid SVC. The lungs are clear and expanded. There is no demonstrated pleural abnormality. Normal size heart. Normal mediastinum and yanely. Normal visualized pulmonary arteries. Normal visualized aortic arch and descending thoracic aorta. There are diffuse degenerative changes of the visualized thoracic spine. Normal visualized ribs, clavicles, and shoulders. There is no demonstrated abnormality of the visualized soft tissue structures of the upper abdomen. RAD/Chest 1 View IMPRESSION: No definite acute or significant abnormality seen. Electronically Signed: Bucky Klein MD at 20:30 EST , Service support ,
[2020-08-25 19:52] LABS: Anisocytosis 1+; Differential Comment SCANNED; Platelet Estimate SLT DEC (ADEQ); Schistocytes RARE
[2020-08-25 20:09] LABS: Anion Gap 12 (5-15); BUN 60 mg/dL (7-18); BUN/Creat Ratio 13.6 RATIO (10-20); Chloride 86 mmol/L (98-107); EST Glomerular Filtration Rate 14 mL/min (>60); Est Glom Filt Rate - Afr Amer 17 mL/min (>60); Estimated Creatinine Clearance 14.98 ml/min; Glucose 1120 mg/dL (74-106); Potassium 4.3 mmol/L (3.5-5.1); Sodium Level 124 mmol/L (136-145)
--- NOTE | 2020-08-25 20:19 | ED.DCSUM_ITS ---
History of Present Illness Chief Complaint: Neuro S/Sx Informant: Patient, Family Onset: Today Narrative: Patient presents with son due to concerns of episodes where he cannot speak. Son is at bedside and states that he was on the phone with his father when he suddenly started speaking gibberish. He states his speech then was clear again followed by another episode where he was having trouble speaking. Son states his mother got on the phone and stated that she needed him to come over. Patient had had approximately 4 episodes of periods where he could not speak which quickly resolved. Patient was recently hospitalized August 05 the for acute renal samaria lure. He had a renal biopsy performed on the that revealed interstitial nephritis. He also had a bone marrow biopsy on August 14. While in the hospital his Xarelto which she had been taking for paroxysmal A. fib was discontinued because of anemia and thrombocytopenia. Patient denies any pain at this time. He states that when these episodes occur he knows what he wants to say but cannot get the words out. He denies any extremity weakness or paresthesias. 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 Comment: CX 20-30% prox-mid stenosis, LAD 20-30% and 10-20% anterior trunk stenosis, OM1 20-30% tapering ostial stenosis, RCA 20% prox stenosis- per cath 08/14/08; LEFT MAIN: Mild luminal irregularities; LEFT ANTERIOR DESCENDING ARTERY: PROX LAD: Mild calcification, Mild luminal irregularities, eccentric: 10 - 25 % Stenosis; MID LAD: Mild luminal irregularities; CIRCUMFLEX ARTERY: Mild luminal irregularities; RIGHT CORONARY ARTERY: PROX RCA: Mild calcification, Mild luminal irregularities, eccentric: 10 - 25 % Stenosis MID RCA: Mild luminal irregularities; AORTIC ROOT: Angiographically normal per cath 05/16/19 (2) Diabetes mellitus, type II Status: Chronic (3) Essential hypertension Status: Chronic (4) Gastroesophageal reflux disease Status: Chronic (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 Lives: Spouse/ Significant Other Smoking Status: Never smoker - Family History Maternal Family History: Family History (Last Reviewed 01/22/20 @ 11:08 by Brittani Peoples) Father CAD (coronary artery disease) Mother Alzheimers disease Sister Breast cancer Family History: Reports: Dementia Paternal Family History: Family History (Last Reviewed 01/22/20 @ 11:08 by Brittani Peoples) Father CAD (coronary artery disease) Mother Alzheimers disease Sister Breast cancer Family History: Reports: Cancer - Father with history of colon cancer., High Cholesterol, Heart Disease, Hypertension Review of Systems General: Denies: Chills, Fever Eyes: Denies: Visual changes - bilaterally ENT: Denies: Bilateral ear pain Cardiovascular: Denies: Chest pain Respiratory: Denies: Dyspnea, Cough Gastrointestinal: Denies: Abdominal pain, Vomiting Musculoskeletal: Denies: Swelling, Extremity Pain Neurological: Denies: Headache, Weakness, Parasthesia Hematologic: Denies: Easy bruising, Easy bleeding Allergy: Denies: Uticaria Physical Exam Vital Signs/Narrative: Vital Signs Temp Pulse Resp BP Pulse Ox 08/25/20 20:12 86 17 137/83 H 98 08/25/20 19:47 88 13 131/73 H 99 08/25/20 19:29 96 17 142/91 H 98 08/25/20 19:09 97.4 F L 98 17 161/91 H 99 Inital Vital Signs reviewed: Yes General: Well nourished, Well developed Head: Normocephalic ENT: Moist mucous membranes Neck: Supple Cardiovascular: Irregular Respiratory: No distress, CTA bilaterally Abdomen: Soft, Nontender Extremities: Nontender Skin: Normal color Neurological: Alert, Oriented x3, Normal Strength, Normal Sensation, - - At the time of my examination his NIH score is 0. He did have several brief episodes where he had expressive aphasia which would quickly resolve while he was in the emergency room. Psychological: Normal affect Diagnostic/Tx/Re-eval Chest X-Ray - ED: 1 View, Read by ED Physician, Chronic Changes Impressions Brain CT 08/25/20 19:17 IMPRESSION: Normal unenhanced CT scan of the brain. Electronically Signed: Bucky Klein MD at 19:43 EST , Service support , ADDENDUM: 08/25/201955 IMPRESSION: Normal unenhanced CT scan of the brain. N.B. : The above information has been verbally conveyed by Bucky Klein MD to Dr. Elis Nolan MD, on 08/25/2020 19:49:48 (ET). Electronically Signed: Bucky Klein MD at 19:43 EST , Service support , Head/Neck CTA 08/25/20 19:25 IMPRESSION: Moderate calcified plaque of the cavernous carotid arteries with bilateral moderate grade intracranial stenosis. Bilateral calcified ICA plaque with mild grade stenosis of the right ICA and no significant stenosis on the left. No focal acute thrombi or occlusions. N.B. : The above information has been verbally conveyed by Bucky Klein MD to Elis Nolan MD, on 08/25/2020 19:49:40 (ET). Electronically Signed: Bucky Klein MD at 19:50 EST , Service support , ADDENDUM: 08/25/201956 IMPRESSION: Moderate calcified plaque of the cavernous carotid arteries with bilateral moderate grade intracranial stenosis. Bilateral calcified ICA plaque with mild grade stenosis of the right ICA and no significant stenosis on the left. No focal acute thrombi or occlusions. N.B. : The above information has been verbally conveyed by Bucky Klein MD to Elis Nolan MD, on 08/25/2020 19:49:40 (ET). Electronically Signed: Bucky Klein MD at 19:50 EST , Service support , 08/25/20 19:17 STROKE Brain/Head without Cont [CT] Stat 08/25/20 19:25 CTA Head AND Neck W/ Contrast [CT] Stat 08/25/20 19:49 Chest 1 View [RAD] Stat Laboratory Results 08/25/20 08/25/20 08/25/20 19:10 19:10 19:10 WBC 20.5 H RBC 3.04 L Hgb 9.5 L Hct 30.1 L MCV 99.0 H MCH 31.3 MCHC 31.6 L RDW Std Deviation 53.4 H RDW Coeff of Dano 14.7 H Plt Count 104 L MPV 12.8 H Immature Gran % (Auto) 3.200 H Neut % (Auto) 89.0 H Lymph % (Auto) 1.9 L Hitchcock % (Auto) 5.8 Eos % (Auto) 0.0 Baso % (Auto) 0.1 Absolute Neuts (auto) 18.2 H Absolute Lymphs (auto) 0.38 L Nucleated RBC % 0 Differential Comment SCANNED Platelet Estimate SLT DEC Anisocytosis 1+ Schistocytes RARE PT 14.4 INR 1.2 APTT 22.6 L Sodium 124 L Potassium 4.3 Chloride 86 L Carbon Dioxide 26.0 Anion Gap 12 BUN 60 H Creatinine 4.40 H Estim Creat Clear Calc 14.98 Est GFR (MDRD) Af Amer 17 L Est GFR (MDRD) Non-Af 14 L BUN/Creatinine Ratio 13.6 Glucose 1120 H* Calcium 8.0 L Troponin I < 0.015 POC Glucose 08/25/20 19:17 WBC RBC Hgb Hct MCV MCH MCHC RDW Std Deviation RDW Coeff of Dano Plt Count MPV Immature Gran % (Auto) Neut % (Auto) Lymph % (Auto) Hitchcock % (Auto) Eos % (Auto) Baso % (Auto) Absolute Neuts (auto) Absolute Lymphs (auto) Nucleated RBC % Differential Comment Platelet Estimate Anisocytosis Schistocytes PT INR APTT Sodium Potassium Chloride Carbon Dioxide Anion Gap BUN Creatinine Estim Creat Clear Calc Est GFR (MDRD) Af Amer Est GFR (MDRD) Non-Af BUN/Creatinine Ratio Glucose Calcium Troponin I POC Glucose > 500 H* - EKG Initial EKG Interpretation: Atrial Fibrillation - A. fib at 88 with no acute ischemia. - Medical Decision Making With patient having repeated episodes of expressive aphasia I did call a stroke team on the patient. I spoke with the neurologist on the phone. He states that this would be a very atypical presentation for stroke and that he has repeated episodes which quickly resolved. I did relate to him the patient's recent hospitalization and significant medical history including cessation of Xarelto. Patient was also placed on prednisone for his interstitial nephritis. He voices that the patient would not be a TPA candidate as he does quickly resolve. Radiologist reports CT and CTA are unremarkable. Blood work is reviewed. Patient's white count is significantly elevated at 20. The time of his hospital discharge it was 7. Son states that he had had significant elevation in his white count and that was what prompted his bone marrow biopsy which was recently done. This may very well be secondary to the high-dose steroids he has been on recently. Patient's blood sugar is also elevated greater than 1000. Again this is likely secondary to his significant steroids with underlying diabetes type 2. All these test results are discussed with the patient and son at bedside. Neurologist recommended transfer to [facility] for further neurologic evaluation. With the patient not having an LVO or any other need for intervention, I did relay to the patient and family I do feel that we could take care of him here as we are a primary stroke center. With the significant weather and snow tonight transporting the patient to [place] would likely not be in his best interest if it could be avoided. They are in agreement would prefer to stay here at [place] if at all possible. I will speak with the jasmin feng for admission. While I was speaking with family son states that he noted as his father was lying in bed with his head extended he noted that his [place] apple will shake. When this happens the patient seems to have trouble speaking. He did have a brief episode of this while he was in the room. It appears as though he is having muscle spasms in his neck which may be contributing to his difficulty in speaking. During the episode he has no difficulty swallowing or breathing. ED Disposition - Plan for ED Patient: Disposition: Acute Care Hospital [facility] Diagnosis: Expressive aphasia Referrals: Guanakito Quarles MD [Primary Care Provider] -
--- NOTE | 2020-08-25 20:24 | PCM.HP.STD ---
Problem List (1) Expressive aphasia Status: Acute (2) Hyperosmolar hyperglycemic state (HHS) Status: Acute (3) Acute renal injury Status: Acute (4) Thrombocytopenia Status: Chronic (5) BPH (benign prostatic hyperplasia) Status: Chronic Qualifiers: Lower urinary tract symptom presence: unspecified whether lower urinary tract symptoms present Qualified Code(s): N40.0 - Benign prostatic hyperplasia without lower urinary tract symptoms (6) Anemia Status: Chronic Qualifiers: Anemia type: unspecified type Qualified Code(s): D64.9 - Anemia, unspecified (7) Pure hypercholesterolemia Status: Chronic (8) Essential hypertension Status: Chronic (9) Atherosclerotic heart disease of [place] coronary artery without angina pectoris Status: Chronic Qualifiers: [place] vs. transplanted heart: [place] heart Qualified Code(s): I25.10 - Atherosclerotic heart disease of [place] coronary artery without angina pectoris Comment: CX 20-30% prox-mid stenosis, LAD 20-30% and 10-20% anterior trunk stenosis, OM1 20-30% tapering ostial stenosis, RCA 20% prox stenosis- per cath 08/14/08; LEFT MAIN: Mild luminal irregularities; LEFT ANTERIOR DESCENDING ARTERY: PROX LAD: Mild calcification, Mild luminal irregularities, eccentric: 10 - 25 % Stenosis; MID LAD: Mild luminal irregularities; CIRCUMFLEX ARTERY: Mild luminal irregularities; RIGHT CORONARY ARTERY: PROX RCA: Mild calcification, Mild luminal irregularities, eccentric: 10 - 25 % Stenosis MID RCA: Mild luminal irregularities; AORTIC ROOT: Angiographically normal per cath 05/16/19 (10) Paroxysmal atrial fibrillation Status: Chronic (11) Gastroesophageal reflux disease Status: Chronic Qualifiers: Esophagitis presence: esophagitis presence not specified Qualified Code(s): K21.9 - Gastro-esophageal reflux disease without esophagitis (12) Diabetes mellitus, type II Status: Chronic Qualifiers: Diabetes mellitus complication status: with circulatory complication Diabetes mellitus complication detail: with other circulatory complications Qualified Code(s): E11.59 - Type 2 diabetes mellitus with other circulatory complications History of Present Illness Date of Admission: 08/25/20 Chief Complaint: Aphasia starting 1849 The patient is a 74 y/o M w/ PMHx: Chronic anemia, Chronic thrombocytopenia, CAD, HTN, HLD, PAF, Hx Wide complex tachycardia, Diabetes mellitus type II, GERD, BPH recently admitted 08/05/2020 discharged on 08/16/2020 following treatment of acute renal failure with renal biopsy demonstrating acute interstitial nephritis started on hemodialysis and discharged on prednisone as well as acute on chronic anemia and thrombocytopenia with bone marrow biopsy negative for lymphoproliferative disorder or plasma cell neoplasm with significant electrolyte disturbances which have been corrected who now represents to the [facility] ED on 08/25/20 with onset while on the phone with his son, started speaking irregularly then he suddenly couldn't speak which again resolved, noted have at least 5-6 episodes since onset. he notes feeling fine but cannot get his words out. He has had 3-4 additionally episodes in the ED. The son noted he was at the bedside and his [place] starts shaking with no other findings concerning for seizures. In the ED these episodes were witnessed by the physician and seem more consistent with possibly laryngeal spasms of some sort however when he does have these he is unable to speak but is coherent and able to tell you what is going on via hand motions. Work-up in the ED included T 97.4, heart rate 98, BP 161/91, respiratory rate 17, 99% on room air, CBC with WC 20.5, hemoglobin 9.5, platelet 104 with left shift and lymphopenia, coags with PT 14.4, INR 1.2, PTT 22.6, BMP with sodium 124, chloride 86, BUN/creatinine 60/4.40, glucose 1120, anion gap 12, troponin less than 0.015, CT brain with no acute intracranial finding, CTA head neck with moderate calcific plaque in the cavernous carotid arteries with bilateral moderate grade intracranial stenosis, bilateral calcified ICA plaque with mild grade stenosis of the right ICA and no significant stenosis on the left with no focal acute thrombi or occlusions, chest x-ray with no acute cardiopulmonary findings, EKG with rate controlled atrial fibrillation. Past Medical History Past Medical History (Chronic Problems): Chronic Problems (Last Updated 08/12/20 @ 11:[address] Chelsie Cárdenas MD) Thrombocytopenia (Chronic) BPH (benign prostatic hyperplasia) (Chronic) Anemia (Chronic) care home current use of amiodarone (Chronic) CAD in [place] artery (Chronic) Pure hypercholesterolemia (Chronic) Essential hypertension (Chronic) Atherosclerotic heart disease of [place] coronary artery without angina pectoris (Chronic) CX 20-30% prox-mid stenosis, LAD 20-30% and 10-20% anterior trunk stenosis, OM1 20-30% tapering ostial stenosis, RCA 20% prox stenosis- per cath 08/14/08; LEFT MAIN: Mild luminal irregularities; LEFT ANTERIOR DESCENDING ARTERY: PROX LAD: Mild calcification, Mild luminal irregularities, eccentric: 10 - 25 % Stenosis; MID LAD: Mild luminal irregularities; CIRCUMFLEX ARTERY: Mild luminal irregularities; RIGHT CORONARY ARTERY: PROX RCA: Mild calcification, Mild luminal irregularities, eccentric: 10 - 25 % Stenosis MID RCA: Mild luminal irregularities; AORTIC ROOT: Angiographically normal per cath 05/16/19 Paroxysmal atrial fibrillation (Chronic) Gastroesophageal reflux disease (Chronic) Diabetes mellitus, type II (Chronic) Medical History: Medical History (Last Updated 08/12/20 @ 11:[address] Chelsie Cárdenas MD) Pure hypercholesterolemia (Chronic) E78.00 Essential hypertension (Chronic) I10 Atherosclerotic heart disease of [place] coronary artery without angina pectoris (Chronic) I25.10 CX 20-30% prox-mid stenosis, LAD 20-30% and 10-20% anterior trunk stenosis, OM1 20-30% tapering ostial stenosis, RCA 20% prox stenosis- per cath 08/14/08; LEFT MAIN: Mild luminal irregularities; LEFT ANTERIOR DESCENDING ARTERY: PROX LAD: Mild calcification, Mild luminal irregularities, eccentric: 10 - 25 % Stenosis; MID LAD: Mild luminal irregularities; CIRCUMFLEX ARTERY: Mild luminal irregularities; RIGHT CORONARY ARTERY: PROX RCA: Mild calcification, Mild luminal irregularities, eccentric: 10 - 25 % Stenosis MID RCA: Mild luminal irregularities; AORTIC ROOT: Angiographically normal per cath 05/16/19 Paroxysmal atrial fibrillation (Chronic) I48.0 Diabetes mellitus, type II (Chronic) E11.9 Body mass index (bmi) 29.0-29.9, adult Z68.29 Chest pain R07.9 History of left heart catheterization (LHC) Onset Date: ~05/16/19 Z98.890 CX 20-30% prox-mid stenosis, LAD 20-30% and 10-20% anterior trunk stenosis, OM1 20-30% tapering ostial stenosis, RCA 20% prox stenosis- per cath 08/14/08; LEFT MAIN: Mild luminal irregularities; LEFT ANTERIOR DESCENDING ARTERY: PROX LAD: Mild calcification, Mild luminal irregularities, eccentric: 10 - 25 % Stenosis; MID LAD: Mild luminal irregularities; CIRCUMFLEX ARTERY: Mild luminal irregularities; RIGHT CORONARY ARTERY: PROX RCA: Mild calcification, Mild luminal irregularities, eccentric: 10 - 25 % Stenosis MID RCA: Mild luminal irregularities; AORTIC ROOT: Angiographically normal per cath 05/16/19 CAD (coronary artery disease) (Inactive) I25.10 Wide-complex tachycardia (Inactive) I47.2 Allergies scopolamine Adverse Reaction (Verified 08/25/20 19:08) HALLUCINATIONS SOME TYPE OF IV DYE FOR ULTRA BRYCE Adverse Reaction (Uncoded 08/25/20 19:08) backache Had during ultrasound of his heart Home Medications: Ambulatory Orders Medication Instructions Recorded Tamsulosin HCl [Flomax] 0.4 mg PO DAILY 01/21/16 sitagliptin 100 mg tablet 100 mg PO DAILY 10/26/17 metoprolol tartrate 50 mg tablet 50 mg PO BID 10/18/18 omega-3 fatty acids 1,000 mg 1,000 mg PO DAILY@1200 cap 01/22/20 capsule pravastatin 20 mg tablet 20 mg PO QHS #90 tab 07/10/20 Amiodarone HCl 200 mg PO DAILY 08/05/20 Glimepiride [Amaryl] 8 mg PO DAILY #90 tab 08/16/20 Pantoprazole Sodium [Protonix] 40 mg PO DAILY #30 tab 08/16/20 Prednisone 60 mg PO DAILY #180 tab.ds.pk 08/16/20 Amlodipine Besylate [Norvasc] 10 mg PO DAILY 08/25/20 Surgical History: Surgical History (Last Reviewed 01/22/20 @ 11:08 by Brittani Peoples) History of ERCP Z98.890 Hx laparoscopic cholecystectomy Z90.49 Surgical History: cholecystectomy - Cholecystectomy with ERCP. Psychiatric History: No pertinent psych hx Lives: Spouse/ Significant Other Smoking Status: Never smoker Tobacco Use: Non-smoker Alcohol: None Drugs: None - *Family History Maternal Family History: Family History (Last Reviewed 01/22/20 @ 11:08 by Brittani Peoples) Father CAD (coronary artery disease) Mother Alzheimers disease Sister Breast cancer History Items: Dementia Paternal Family History: Family History (Last Reviewed 01/22/20 @ 11:08 by Brittani Peoples) Father CAD (coronary artery disease) Mother Alzheimers disease Sister Breast cancer History Items: Cancer - Father with history of colon cancer., High Cholesterol, Heart Disease, Hypertension Review of Systems Constitutional: Reports: Weakness, Fatigue. Denies: Anorexia, Chills, Fever, Malaise, Weight Change HEENT: Reports: - - Abnormal appearance of laryngeal spasms with concurrent expressive aphasia.. Denies: Head Aches, Sinus Congestion, Sinus Drainage Cardiovascular: Denies: Chest Pain, Palpitations Respiratory: Denies: Cough, Shortness of breath at rest, Sputum production Gastrointestinal: Denies: Abdominal Pain, Nausea, Vomiting Genitourinary: Denies: Dysuria Musculoskeletal: Reports: Back Pain, Joint Pain. Denies: Joint Tenderness Skin: Reports: Skin Changes, Wounds. Denies: Rash Neurological: Reports: - - Presence of expressive aphasia however also concurrent appearance of midline throat/laryngeal spasming.. Denies: Focal weakness, Numbness, Tingling Psychiatric: Denies: Anxiety, Depression, Homicidal Ideations, Suicidal Ideations Hematologic/ Lymphatic: Reports: Anemia, Easy Bruising, Easy Bleeding VTE Information - Inpt Only VTE Present on Admission: No VTE Mechan Device Prophylaxis: SCD's VTE Pharm Prophylaxis ordered?: Yes Patient Problems: Active and Suspected Problems (Last Updated 08/12/20 @ 11:[address] Chelsie Cárdenas MD) Expressive aphasia (Acute) Subjective: Patient seated upright in the ED bed, fatigued appearance, episodes during evaluation of midline throat/laryngeal spasms with inability to talk at those times. Objective: Physical Examination: General: awake, alert, oriented x 3 and cooperative, seated upright in the ED bed, fatigued otherwise no acute distress until episodes of possible laryngeal spasming which do not appear painful but he is unable to talk at that time, do kash, worsened by increased activity and talking. Skin: normal color, turgor, no icterus, cyanosis. HEENT: AT/NC, EOMI, PERRLA, mildly dry MM, no carotid bruits or JVD noted. Lungs: Diminished breath sounds, greater bases, normal effort, no rales, ronchi or wheezing. Heart: Irregular, rate controlled; no gallop, rub audible, pacemaker. Abdomen: soft, NTTP, ND, normal BS, no HSM. Extremities: no cyanosis or clubbing, mild bilateral ankle nonpitting edema. Neurological: patient awake, alert, oriented as noted; cognitive function appears intact despite acute presentation when not having aphasia; pupils equally reactive to light and accomodation; cranial nerves II-XII grossly normal, moving all 4 extremities, no focal deficits, strength mildly to moderately global decreased, [id number] and [id number] appropriate, negative Babinski, sensation intact, periods of expressive aphasia but only when midline throat/pharyngeal spasming evident. Psychiatric: affect appears fatigued otherwise normal, no acute evidence of depressive or anxiety feelings. - Physical Exam Vitals/I&O's: Vital Signs Temp Pulse Resp BP Pulse Ox 97.4 F L 86 17 137/83 H 98 08/25/20 19:09 08/25/20 20:12 08/25/20 20:12 08/25/20 20:12 08/25/20 20:12 Oxygen Delivery Method Room Air Weight: 196 lb 13.965 oz Body Mass Index (BMI) 28.2 Finger Stick Blood Glucose 600 Laboratory Results 08/25/20 19:10: WBC 20.5 H, RBC 3.04 L, Hgb 9.5 L, Hct 30.1 L, MCV 99.0 H, MCH 31.3, MCHC 31.6 L, RDW Std Deviation 53.4 H, RDW Coeff of [place] 14.7 H, Plt Count 104 L, MPV 12.8 H, Immature Gran % (Auto) 3.200 H, Neut % (Auto) 89.0 H, Lymph % (Auto) 1.9 L, [place] % (Auto) 5.8, Eos % (Auto) 0.0, Baso % (Auto) 0.1, Absolute Neuts (auto) 18.2 H, Absolute Lymphs (auto) 0.38 L, Nucleated RBC % 0, Differential Comment SCANNED, Platelet Estimate SLT DEC, Anisocytosis 1+, Schistocytes RARE 08/25/20 19:10: PT 14.4, INR 1.2, APTT 22.6 L 08/25/20 19:10: Sodium 124 L, Potassium 4.3, Chloride 86 L, Carbon Dioxide 26.0, Anion Gap 12, BUN 60 H, Creatinine 4.40 H, Estim Creat Clear Calc 14.98, Est GFR (MDRD) Af Amer 17 L, Est GFR (MDRD) Non-Af 14 L, BUN/Creatinine Ratio 13.6, Glucose 1120 H*, Calcium 8.0 L, Troponin I < 0.015 08/25/20 19:17: POC Glucose > 500 H* Current Medications Labetalol HCl (Labetalol (Prefilled) 20 Mg/4 Ml) 20 mg IV X1 PRN PRN Reason: BLOOD PRESSURE Assessment/Plan All Active Problems (Last Updated 08/12/20 @ 11:[address] Chelsie Cárdenas MD) Expressive aphasia (Acute) Hyperosmolar hyperglycemic state (HHS) (Acute) Acute renal injury (Acute) Monoclonal gammopathy (Acute) The patient is a 74 y/o M w/ PMHx: Chronic anemia, Chronic thrombocytopenia, CAD, HTN, HLD, PAF, Hx Wide complex tachycardia, Diabetes mellitus type II, GERD, BPH recently admitted 08/05/2020 discharged on 08/16/2020 following treatment of acute renal failure with renal biopsy demonstrating acute interstitial nephritis started on hemodialysis and discharged on prednisone as well as acute on chronic anemia and thrombocytopenia with bone marrow biopsy negative for lymphoproliferative disorder or plasma cell neoplasm with significant electrolyte disturbances which have been corrected who now represents to the [facility] ED on 08/25/20 with onset while on the phone with his son, started speaking irregularly then he suddenly couldn't speak which again resolved, noted have at least 5-6 episodes since onset. he notes feeling fine but cannot get his words out. He has had 3-4 additionally episodes in the ED. 1. Intermittent expressive aphasia concerning for ? Laryngeal Spasms, LOW SUSPICION CVA: Will admit to the ICU given usage of insulin drip, Will request ENT evaluation in AM once service available, but in the interim will continue acute CVA work-up pending their evaluation of patient including MRI Brain, if MRI negative and pending neurology reevaluation may need to consider ENT evaluation, 08/09/2020 echocardiogram with normal EF 65%, LV systolic function normal, mild enlarged LA, trivial MVI, trivial TVI, no evidence for diastolic dysfunction but contrast study not performed likely secondary to acute kidney injury, defer repeat at this time given JAKOB concurrently, PT/OT/Speech/Nutrition evaluation per protocol. Will allow permissive HTN, maintain on aspirin, given acute presentation and recent issues with worsened anemia and thrombocytopenia will initiate on heparin drip as this may be held quickly if worsening hemoglobin/platelets, statin w/ AM FLP, fall precautions, magnesium pending, TSH pending, hemoglobin A1c pending. 2. Diabetes mellitus type II with significant hyperglycemia, possible HHS, exacerbated by steroid usage: We will admit to the ICU given significant glucose elevations and also concurrent ongoing questionable abnormal throat muscle spasms versus stroke, continue on insulin drip, check serial K+, glucose w/ IVF changes pending these levels, serial chemistry, obtain mag, phos daily w/ repletion as needed, transition to home SC regimen once clinically improving, nutrition consultation. Maintain n.p.o. status given acute presentation as noted and intention for insulin drip. Osm pending. 3. Acute kidney injury on CKD stage II w/ Recent JAKOB presentation, had been improving secondary to Acute Interstitial Nephritis: Secondary to acute presentation as noted. Admission BUN/Cr 60/4.40, prior baseline creatinine noted to be most recently on 08/16/2020 3.03 and had been trending down from acute presentation 08/05/2020 with creatinine 7.03 at that time. Will continue HD MWF, consult Nephrology, continue steroids with aggressive hyperglycemia treatment. 4. Acute hyponatremia: Likely also secondary to significant hyperglycemia, most recently noted 08/16/2020 level 130s, will continue judiciously hydrate, repeat CMP in AM. 5. Recent Acute anemia and thrombocytopenia: Recent d/c anticoagulation secondary to presentation, plts had decreased to 47, Hgb decreased to 6.9, recent bone marrow biopsy negative for lymphoproliferative disorder or plasma cell neoplasm. Will cautiously initiate heparin drip and closely monitor CBC. 6. CAD: Placing as noted on heparin drip, although lower suspicion CVA as etiology as noted, permissive HTN, continue statin. 7. Hypertension: Permissive HTN as noted, PRN agents. 8. Hyperlipidemia: Continue patient home statin regimen. FLP in AM. 9. PAF: EKG upon presentation with rate controlled atrial fibrillation, transitioning as noted to heparin drip, although lower suspicion for CVA as etiology is noted, will maintain on amiodarone, holding beta-chino therapy. 10. GERD: Maintain on protonix. 11. BPH: Continue home flomax regimen. 12. DVT Prophylaxis: SCDs, heparin drip as noted. 13. CODE status: Patient ANA is his and living will is in place. Discussed CODE status at length including difference between FULL code, DNR-CCA and DNR-CC status. Following discussions about the differences in these status, requested Full Code. Advanced Care Planning Face to Face Time: 16 minutes. Inpatient E&M: 50068 Init Hosp L3 Procedures: 93963 Advncd Care Plan 30 Min
--- NOTE | 2020-08-25 20:58 | ED.RN ---
insulin drip second check by kwaku pacheco rn.
[2020-08-25] MEDS: 0.9% Normal Saline 1,000 ML 999 ML IV (21:50)
[2020-08-25 22:20] LABS: Bedside Glucose > 500 mg/dL (70-110)
[2020-08-25 22:24] LABS: Magnesium 1.7 mg/dL (1.6-2.6); Phosphorus 4.9 mg/dL (2.5-4.9)
[2020-08-25 22:41] LABS: Glucose 1062 mg/dL (74-106)
[2020-08-25 22:50] LABS: Osmolality, Serum 346 mOsm/KG (280-301)
[2020-08-25] MEDS: HEPARIN/D5w 25,000 UNITS 25,000 UNITS/250 ML IV.SOLN. 11 UNITS IV (23:12)
[2020-08-25] MEDS: Heparin Injection (Vial) 5,000 UNIT/ML VIAL 6000 UNIT IV (23:12)
[2020-08-25] MEDS: 0.9% Normal Saline 1,000 ML 100 ML IV (23:15)
[2020-08-25 23:20] LABS: Bedside Glucose > 500 mg/dL (70-110)
[2020-08-25 23:20] LABS: Hemoglobin A1c 8.8 % (3.8-5.6)
[2020-08-25] MEDS: Pravastatin 20 MG Tablet PO (23:29)
[2020-08-25 23:48] LABS: Anion Gap 11 (5-15); BUN 61 mg/dL (7-18); Calcium,Total 7.8 mg/dL (8.5-10.1); Chloride 91 mmol/L (98-107); Creatinine, Serum 4.36 mg/dL (0.70-1.30); EST Glomerular Filtration Rate 14 mL/min (>60); Est Glom Filt Rate - Afr Amer 17 mL/min (>60); Estimated Creatinine Clearance 15.12 ml/min; Glucose 940 mg/dL (74-106); Sodium Level 127 mmol/L (136-145)
[2020-08-26] VITALS (28 sets, daily range): BP systolic 104–141; BP diastolic 53–78; PULSE 52–114; RESP 13–22; TEMP 35.8–36.5; O2SAT 97–100
[2020-08-26 01:22] LABS: Glucose 730 mg/dL (74-106)
[2020-08-26 03:11] LABS: Absolute Lymphocyte Count 0.33 X10^3/uL (0.83-4.51); Absolute Neutrophil Count 13.2 X10^3/uL (2.0-7.7); Basophil# 0.01 X10^3/uL; Basophil% 0.1 % (0-1); Hematocrit 22.6 % (40-54); Hemoglobin 7.7 g/dL (13.0-16.5); Lymphocyte # 0.33 X10^3/ul (4.0); Lymphocyte % 2.2 % (19-41); Mean Corp Hgb Conc 34.1 g/dL (32-36); Mean Corpuscular Hgb 30.8 pg (27.0-32.0); Mean Corpuscular Volume 90.4 fL (80-94); Mean Platelet Vol. 13.6 fl (6.2-12.0); Monocyte# 0.97 X10^3/uL; Monocyte% 6.5 % (0-10); NRBC Flagged by Analyzer 0 % (0-5); Neutrophil # 13.16 X10^3/uL (2.7-7.7); Neutrophil % 88.7 % (47-70); POSITIVE COUNT YES; POSITIVE DIFFERENTIAL YES; Platelet Count 80 K/mm3 (150-450); RBC Distribution Width CV 13.2 % (11.6-14.6); RBC Distribution Width SD 43.9 fl (35.1-43.9); White Blood Count 14.8 K/mm3 (4.4-11.0)
[2020-08-26 03:16] LABS: Differential Indicated SCAN CRITERIA MET
[2020-08-26 03:39] LABS: ALB/GLOB Ratio 0.9 RATIO (0.9-2.4); AST(SGOT) 8 U/L (15-37); Alanine Aminotransfer ALT/SGPT 122 U/L (16-61); Albumin, Serum 1.9 g/dL (3.2-5.0); Alkaline Phosphatase 89 U/L (45-117); Anion Gap 9 (5-15); BUN 62 mg/dL (7-18); BUN/Creat Ratio 14.6 RATIO (10-20); Calcium,Total 7.7 mg/dL (8.5-10.1); Chloride 94 mmol/L (98-107); Cholesterol 62 mg/dL (200); Creatinine, Serum 4.26 mg/dL (0.70-1.30); EST Glomerular Filtration Rate 15 mL/min (>60); Est Glom Filt Rate - Afr Amer 18 mL/min (>60); Estimated Creatinine Clearance 15.47 ml/min; Globulin 2.2 g/dL (2.2-4.2); Glucose 653 mg/dL (74-106); High Density Lipoprotein 40 mg/dL; Potassium 3.9 mmol/L (3.5-5.1); Protein, Total 4.1 g/dL (6.4-8.2); Sodium Level 130 mmol/L (136-145); Triglycerides 40 mg/dL; Very Low Density Lipoprotein 8 mg/dL (5-40)
[2020-08-26 05:39] LABS: Glucose 520 mg/dL (74-106)
--- NOTE | 2020-08-26 05:55 | EKG12_ITS ---
Test Reason : AM EKG Blood Pressure : / mmHG Vent. Rate : 056 BPM Atrial Rate : 056 BPM P-R Int : 138 ms QRS Dur : 100 ms QT Int : 544 ms P-R-T Axes : 055 044 054 degrees QTc Int : 524 ms Sinus bradycardia with Premature atrial complexes Prolonged QT Abnormal ECG When compared with ECG of 05-AUG-2020 17:15, Premature atrial complexes are now Present QT has lengthened Confirmed by ANTON EATON, RUBEN ([id number]), sound editor MYLES FLOWER ([id number]) on 08/27/2020 8:50:53 AM Referred By: TIMOTEO Confirmed By:RUBEN WALTON MD
[2020-08-26] MEDS: Lactated Ringers 1,000 ML 999 ML IV (06:23)
[2020-08-26 07:20] LABS: Anion Gap 10 (5-15); BUN 57 mg/dL (7-18); BUN/Creat Ratio 14.5 RATIO (10-20); Calcium,Total 7.5 mg/dL (8.5-10.1); Chloride 98 mmol/L (98-107); Creatinine, Serum 3.93 mg/dL (0.70-1.30); EST Glomerular Filtration Rate 16 mL/min (>60); Est Glom Filt Rate - Afr Amer 19 mL/min (>60); Estimated Creatinine Clearance 16.77 ml/min; Glucose 439 mg/dL (74-106); Potassium 3.9 mmol/L (3.5-5.1); Sodium Level 133 mmol/L (136-145)
--- NOTE | 2020-08-26 08:23 | PCS.PANDOC ---
PANDEMIC DOCUMENTATION INITIATED: Date: 08/25/20 Time: [id number]
--- NOTE | 2020-08-26 08:25 | CASEMGMT ---
LW/POA forms scanned into summary tab of e-chart. POLO Steward
[2020-08-26] MEDS: predniSONE 20 MG Tablet 60 MG PO (08:56)
[2020-08-26] MEDS: Aspirin 81 MG TAB.CHEW PO (08:56)
[2020-08-26] MEDS: Amiodarone 200 MG Tablet PO (08:56)
[2020-08-26] MEDS: Tamsulosin HCl 0.4 MG Capsule PO (08:56)
[2020-08-26] MEDS: Pantoprazole Sodium 40 MG Tablet PO (08:57)
[2020-08-26] MEDS: 0.9% Normal Saline 1,000 ML 100 ML IV ×2 (08:59→19:12)
--- NOTE | 2020-08-26 08:59 | CON.PCM_ITS ---
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 transplanted heart: [place] heart Qualified Code(s): I25.10 - Atherosclerotic heart disease of [place] coronary artery without angina pectoris Comment: CX 20-30% prox-mid stenosis, LAD 20-30% and 10-20% anterior trunk stenosis, OM1 20-30% tapering ostial stenosis, RCA 20% prox stenosis- per cath 08/14/08; LEFT MAIN: Mild luminal irregularities; LEFT ANTERIOR DESCENDING ARTERY: PROX LAD: Mild calcification, Mild luminal irregularities, eccentric: 10 - 25 % Stenosis; MID LAD: Mild luminal irregularities; CIRCUMFLEX ARTERY: Mild luminal irregularities; RIGHT CORONARY ARTERY: PROX RCA: Mild calcification, Mild luminal irregularities, eccentric: 10 - 25 % Stenosis MID RCA: Mild luminal irregularities; AORTIC ROOT: Angiographically normal per cath 05/16/19 (11) Paroxysmal atrial fibrillation Status: Chronic (12) Gastroesophageal reflux disease Status: Chronic Qualifiers: Esophagitis presence: esophagitis presence not specified Qualified Code(s): K21.9 - Gastro-esophageal reflux disease without esophagitis (13) Diabetes mellitus, type II Status: Chronic Qualifiers: Diabetes mellitus complication status: with circulatory complication Diabetes mellitus complication detail: with other circulatory complications Qualified Code(s): E11.59 - Type 2 diabetes mellitus with other circulatory complications Reason for Consult Date of Consultation: 08/26/20 Reason for Consultation: Hyperglycemia History of Present Illness: The patient is a 74 year old M, with past medical history listed below, who presented to [facility] [place] on 08/25/2020 secondary to problems with speech. Patient reportedly had called his son on the phone and suddenly started to speak gibberish. Patient speech would improve followed by another episode with trouble speaking. Patient reportedly had 4 such events prior to EMS being called. In the ER, patient was saturating well, but was hypertensive at 161/91. No fevers were reported. NIH scale was noted to be 0 however he did have intermittent episodes of expressive aphasia that resolved over the course of seconds to minutes. Patient subsequently had a CT scan of the head that was unremarkable, a CTA of the neck showing mild stenosis and a chest x-ray that was relatively unremarkable. Patient did have a leukocytosis of 20.5 with a hemoglobin of 9.5 and platelet count of 104. Patient also had normal coagulation studies, but chemistry showed a sodium of 124, glucose of 1120, BUN of 60 and creatinine of 4.4. A stroke team was called and patient was evaluated by teleneurology. There was some discussion about transferring to [facility], but after discussion with the family it was elected to keep the patient here in [place] as a primary stroke work-up. Since being in the intensive care unit, patient's blood sugar has slowly improved. With improving blood sugar, patient states his voice is more stable. Patient does admit that he does not normally check his oxygen or blood sugars at home. Patient believes he is feeling more like normal since being hospitalized. Patient denies any focal neurologic deficits such as paresthesia or difficulty finding words. Patient had been hospitalized from August 05 through the secondary to acute renal failure. At that time patient had a biopsy showing interstitial nephritis. Patient was placed on Xarelto for paroxysmal A. fib, but this was subsequently discontinued secondary to anemia and thrombocytopenia. Patient states for the last 2 to 3 weeks he has been on 60 mg of prednisone and does not check his sugars regularly at home. Patient has not had to be hospitalized for hyperglycemia previously. Review of systems otherwise negative from a constitutional, HEENT, respiratory, cardiovascular, GI, genitourinary, musculoskeletal, skin, neurologic, psychiatric and hematologic system unless stated above. Past Medical History Past Medical History (Chronic Problems): Chronic Problems (Last Updated 08/12/20 @ 11:[address] 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) CAD in [place] artery (Chronic) Pure hypercholesterolemia (Chronic) Essential hypertension (Chronic) Atherosclerotic heart disease of [place] coronary artery without angina pectoris (Chronic) CX 20-30% prox-mid stenosis, LAD 20-30% and 10-20% anterior trunk stenosis, OM1 20-30% tapering ostial stenosis, RCA 20% prox stenosis- per cath 08/14/08; LEFT MAIN: Mild luminal irregularities; LEFT ANTERIOR DESCENDING ARTERY: PROX LAD: Mild calcification, Mild luminal irregularities, eccentric: 10 - 25 % Stenosis; MID LAD: Mild luminal irregularities; CIRCUMFLEX ARTERY: Mild luminal irregularities; RIGHT CORONARY ARTERY: PROX RCA: Mild calcification, Mild luminal irregularities, eccentric: 10 - 25 % Stenosis MID RCA: Mild luminal irregularities; AORTIC ROOT: Angiographically normal per cath 05/16/19 Paroxysmal atrial fibrillation (Chronic) Gastroesophageal reflux disease (Chronic) Diabetes mellitus, type II (Chronic) Medical History: Medical History (Last Updated 08/12/20 @ 11:[address] Chelsie Cárdenas MD) Pure hypercholesterolemia (Chronic) E78.00 Essential hypertension (Chronic) I10 Atherosclerotic heart disease of [place] coronary artery without angina pectoris (Chronic) I25.10 CX 20-30% prox-mid stenosis, LAD 20-30% and 10-20% anterior trunk stenosis, OM1 20-30% tapering ostial stenosis, RCA 20% prox stenosis- per cath 08/14/08; LEFT MAIN: Mild luminal irregularities; LEFT ANTERIOR DESCENDING ARTERY: PROX LAD: Mild calcification, Mild luminal irregularities, eccentric: 10 - 25 % Stenosis; MID LAD: Mild luminal irregularities; CIRCUMFLEX ARTERY: Mild luminal irregularities; RIGHT CORONARY ARTERY: PROX RCA: Mild calcification, Mild luminal irregularities, eccentric: 10 - 25 % Stenosis MID RCA: Mild luminal irregularities; AORTIC ROOT: Angiographically normal per cath 05/16/19 Paroxysmal atrial fibrillation (Chronic) I48.0 Diabetes mellitus, type II (Chronic) E11.9 Body mass index (bmi) 29.0-29.9, adult Z68.29 Chest pain R07.9 History of left heart catheterization (LHC) Onset Date: ~05/16/19 Z98.890 CX 20-30% prox-mid stenosis, LAD 20-30% and 10-20% anterior trunk stenosis, OM1 20-30% tapering ostial stenosis, RCA 20% prox stenosis- per cath 08/14/08; LEFT MAIN: Mild luminal irregularities; LEFT ANTERIOR DESCENDING ARTERY: PROX LAD: Mild calcification, Mild luminal irregularities, eccentric: 10 - 25 % Stenosis; MID LAD: Mild luminal irregularities; CIRCUMFLEX ARTERY: Mild luminal irregularities; RIGHT CORONARY ARTERY: PROX RCA: Mild calcification, Mild luminal irregularities, eccentric: 10 - 25 % Stenosis MID RCA: Mild luminal irregularities; AORTIC ROOT: Angiographically normal per cath 05/16/19 CAD (coronary artery disease) (Inactive) I25.10 Wide-complex tachycardia (Inactive) I47.2 Allergies scopolamine Adverse Reaction (Verified 08/25/20 19:08) HALLUCINATIONS SOME TYPE OF IV DYE FOR ULTRA BRYCE Adverse Reaction (Uncoded 08/25/20 19:08) backache Had during ultrasound of his heart Home Medications: Ambulatory Orders Medication Instructions Recorded Tamsulosin HCl [Flomax] 0.4 mg PO DAILY 01/21/16 sitagliptin 100 mg tablet 100 mg PO DAILY 10/26/17 metoprolol tartrate 50 mg tablet 50 mg PO BID 10/18/18 omega-3 fatty acids 1,000 mg 1,000 mg PO DAILY@1200 cap 01/22/20 capsule pravastatin 20 mg tablet 20 mg PO QHS #90 tab 07/10/20 Amiodarone HCl 200 mg PO DAILY 08/05/20 Glimepiride [Amaryl] 8 mg PO DAILY #90 tab 08/16/20 Pantoprazole Sodium [Protonix] 40 mg PO DAILY #30 tab 08/16/20 Prednisone 60 mg PO DAILY #180 tab.ds.pk 08/16/20 Amlodipine Besylate [Norvasc] 10 mg PO DAILY 08/25/20 Surgical History: Surgical History (Last Reviewed 01/22/20 @ 11:08 by Brittani Peoples) History of ERCP Z98.890 Hx laparoscopic cholecystectomy Z90.49 Surgical History: cholecystectomy - Cholecystectomy with ERCP. Psychiatric History: No pertinent psych hx Lives: Spouse/ Significant Other Smoking Status: Never smoker Tobacco Use: Non-smoker Alcohol: None Drugs: None - *Family History Maternal Family History: Family History (Last Reviewed 01/22/20 @ 11:08 by Brittani Peoples) Father CAD (coronary artery disease) Mother Alzheimers disease Sister Breast cancer History Items: Dementia Paternal Family History: Family History (Last Reviewed 01/22/20 @ 11:08 by Brittani Peoples) Father CAD (coronary artery disease) Mother Alzheimers disease Sister Breast cancer History Items: Cancer - Father with history of colon cancer., High Cholesterol, Heart Disease, Hypertension Review of Systems Comment: See HPI Patient Problems: Active and Suspected Problems (Last Updated 08/12/20 @ 11:[address] Chelsie Cárdenas MD) Expressive aphasia (Acute) Hyperosmolar hyperglycemic state (HHS) (Acute) Acute renal injury (Acute) Monoclonal gammopathy (Acute) Objective: All imaging was personally reviewed. Agree with formal interpretation. Recent work-up for multiple myeloma showed a negative bone marrow biopsy. Renal biopsy was not available for review in the computer system. - Physical Exam Vitals/I&O's: Vital Signs Temp Pulse Resp BP Pulse Ox 36.5 C L 54 L 14 120/61 97 08/26/20 00:00 08/26/20 08:00 08/26/20 06:00 08/26/20 06:00 08/26/20 07:07 Oxygen Delivery Method Room Air Weight: 81.478 kg Body Mass Index (BMI) 25.2 Finger Stick Blood Glucose 600 Intake and Output for Last 24 Hours 08/24/20 08/25/20 08/26/20 23:59 23:59 23:59 Intake Total 1025.07 / 1175.07 1215.58 / 1215.58 Output Total 300 / 300 350 / 350 Balance 725.07 / 875.07 865.58 / 865.58 General: Alert, Oriented x3, Cooperative, No apparent distress, Well developed, Well nourished, - - No conversational dyspnea. No periods of aphasia noted during my evaluation HEENT: Atraumatic, PERRLA, EOMI, Normocephalic, - - No facial droop Oral: Moist Mucosa, No Gingival or Mucosal Lesions/ Ulcerations Neck: Supple, No JVD, No Nodes, Trachea Midline Lungs: Clear to auscultation, Normal air movement, No rhonchi, No wheeze, No rales Cardiovascular: Regular rate, Regular Rhythm, Normal S1, Normal S2, No murmurs, No rub noted, No Gallop Abdomen: Bowel Sounds Present, Soft, Non Tender, Non-Distended Extremities: No clubbing, No cyanosis, No edema, Capillary Refill Less than 3 Seconds Skin: No rashes, No breakdown Musculoskeletal: No Tenderness to Palpation of Joints or Extremities Lymphatic: No Cervical, Supraclavicular, or Inguinal Adenopathy Neurological: Cranial nerves II-XII grossly intact, Neuro grossly intact, Motor Exam 5/5 strength throughout Psych/Mental Status: Alert and oriented to time, place, person, mood and affect Laboratory Results 08/25/20 19:10: WBC 20.5 H, RBC 3.04 L, Hgb 9.5 L, Hct 30.1 L, MCV 99.0 H, MCH 31.3, MCHC 31.6 L, RDW Std Deviation 53.4 H, RDW Coeff of [place] 14.7 H, Plt Count 104 L, MPV 12.8 H, Immature Gran % (Auto) 3.200 H, Neut % (Auto) 89.0 H, Lymph % (Auto) 1.9 L, [place] % (Auto) 5.8, Eos % (Auto) 0.0, Baso % (Auto) 0.1, Absolute Neuts (auto) 18.2 H, Absolute Lymphs (auto) 0.38 L, Nucleated RBC % 0, Differential Comment SCANNED, Platelet Estimate SLT DEC, Anisocytosis 1+, Schistocytes RARE 08/25/20 19:10: PT 14.4, INR 1.2, APTT 22.6 L 08/25/20 19:10: Sodium 124 L, Potassium 4.3, Chloride 86 L, Carbon Dioxide 26.0, Anion Gap 12, BUN 60 H, Creatinine 4.40 H, Estim Creat Clear Calc 14.98, Est GFR (MDRD) Af Amer 17 L, Est GFR (MDRD) Non-Af 14 L, BUN/Creatinine Ratio 13.6, Glucose 1120 H*, Calcium 8.0 L, Troponin I < 0.015 08/25/20 19:10: Phosphorus 4.9, Magnesium 1.7 08/25/20 19:10: Serum Osmolality 346 H 08/25/20 19:10: Hemoglobin A1c 8.8 H 08/25/20 19:17: POC Glucose > 500 H* 08/25/20 21:54: POC Glucose > 500 H* 08/25/20 22:00: Glucose 1062 H* 08/25/20 23:00: Sodium 127 L, Potassium 4.0, Chloride 91 L, Carbon Dioxide 25.0, Anion Gap 11, BUN 61 H, Creatinine 4.36 H, Estim Creat Clear Calc 15.12, Est GFR (MDRD) Af Amer 17 L, Est GFR (MDRD) Non-Af 14 L, BUN/Creatinine Ratio 14.0, Glucose 940 H*, Calcium 7.8 L 08/25/20 23:08: POC Glucose > 500 H* 08/25/20 23:20: Troponin I 0.018 08/26/20 00:59: Troponin I 0.019 08/26/20 00:59: Glucose 730 H* 08/26/20 03:03: WBC 14.8 H, RBC 2.50 L, Hgb 7.7 L, Hct 22.6 L, MCV 90.4 D, MCH 30.8, MCHC 34.1 D, RDW Std Deviation 43.9, RDW Coeff of [place] 13.2, Plt Count 80 L, MPV 13.6 H, Immature Gran % (Auto) 2.500 H, Neut % (Auto) 88.7 H, Lymph % (Auto) 2.2 L, [place] % (Auto) 6.5, Eos % (Auto) 0.0, Baso % (Auto) 0.1, Absolute Neuts (auto) 13.2 H, Absolute Lymphs (auto) 0.33 L, Nucleated RBC % 0 08/26/20 03:03: Sodium 130 L, Potassium 3.9, Chloride 94 L, Carbon Dioxide 27.0, Anion Gap 9, BUN 62 H, Creatinine 4.26 H, Estim Creat Clear Calc 15.47, Est GFR (MDRD) Af Amer 18 L, Est GFR (MDRD) Non-Af 15 L, BUN/Creatinine Ratio 14.6, Glucose 653 H*, Calcium 7.7 L, Total Bilirubin 0.50, AST 8 L, ALT 122 H, Alkaline Phosphatase 89, Total Protein 4.1 L, Albumin 1.9 L, Globulin 2.2, Albumin/Globulin Ratio 0.9, Triglycerides 40, Cholesterol 62, LDL Cholesterol 14, VLDL Cholesterol 8, HDL Cholesterol 40, TSH 0.20 L, Free T4 1.00 08/26/20 05:15: Glucose 520 H* 08/26/20 06:55: Sodium 133 L, Potassium 3.9, Chloride 98, Carbon Dioxide 25.0, Anion Gap 10, BUN 57 H, Creatinine 3.93 H, Estim Creat Clear Calc 16.77, Est GFR (MDRD) Af Amer 19 L, Est GFR (MDRD) Non-Af 16 L, BUN/Creatinine Ratio 14.5, Glucose 439 H, Calcium 7.5 L Current Medications Albuterol Sulfate (Albuterol 2.5 Mg/3 Ml Vial.Neb.) 2.5 mg INHALATION Q2H PRN PRN PRN Reason: Dyspnea, wheezing Amiodarone HCl (Amiodarone 200 Mg Tablet) 200 mg PO DAILY [facility] Last Admin: 08/26/20 08:56 Dose: 200 mg Documented by: Aspirin (Aspirin 81 Mg Tab.Chew) 81 mg PO DAILY@0800 [facility] Last Admin: 08/26/20 08:56 Dose: 81 mg Documented by: Dextrose (Dextrose 50%-Water 25 Gm/50 Ml Disp.Syrin) 0 gm IV X1 PRN; Protocol PRN Reason: Hypoglycemia Protocol Hydralazine HCl (Hydralazine 20 Mg/Ml Vial) 10 mg IV Q4H PRN PRN PRN Reason: SBP > 160 Insulin Human Lispro 100 unit/ (Sodium Chloride) 100 mls @ 8.93 mls/hr CONT INF .[id number] [facility]; Protocol Last Admin: 08/26/20 08:21 Dose: Not Given Documented by: Sodium Chloride () 1,000 mls @ 100 mls/hr IV .Q10H [facility] Last Admin: 08/25/20 23:15 Dose: 100 mls/hr Documented by: Sodium Chloride () 250 mls @ 15 mls/hr IV .[id number] PRN PRN Reason: Saline Flush Sodium Chloride () 250 mls @ 15 mls/hr IV .[id number] PRN PRN Reason: Additional IVPB Infusion Labetalol HCl (Labetalol (Prefilled) 20 Mg/4 Ml) 20 mg IV X1 PRN PRN Reason: BLOOD PRESSURE Labetalol HCl (Labetalol (Prefilled) 20 Mg/4 Ml) 10 - 20 mg IV Q10M PRN PRN PRN Reason: to Maintain BP Goals Pantoprazole Sodium (Pantoprazole Sodium 40 Mg Tablet) 40 mg PO DAILY [facility] Last Admin: 08/26/20 08:57 Dose: 40 mg Documented by: Pravastatin Sodium (Pravastatin 20 Mg Tablet) 20 mg PO QHS [facility] Last Admin: 08/25/20 23:29 Dose: 20 mg Documented by: Prednisone ([facility] 20 Mg Tablet) [facility] Last Admin: 08/26/20 08:56 Dose: 60 mg Documented by: Sodium Chloride (0.9% Saline Lock 10 Ml Syringe) 10 - 40 ml IV UD PRN PRN Reason: SALINE FLUSH Tamsulosin HCl (Tamsulosin Hcl 0.4 Mg Capsule) 0.4 mg PO DAILY [facility] Last Admin: 08/26/20 08:56 Dose: 0.4 mg Documented by: Clinical Impression(s) from Imaging Studies Brain CT 08/25/20 19:17 IMPRESSION: Normal unenhanced CT scan of the brain. Electronically Signed: Bucky Klein MD at 19:43 EST , Service support , ADDENDUM: 08/25/201955 IMPRESSION: Normal unenhanced CT scan of the brain. N.B. : The above information has been verbally conveyed by Bucky Klein MD to Dr. Elis Nolan MD, on 08/25/2020 19:49:48 (ET). Electronically Signed: Bucky Klein MD at 19:43 EST , Service support , Head/Neck CTA 08/25/20 19:25 IMPRESSION: Moderate calcified plaque of the cavernous carotid arteries with bilateral moderate grade intracranial stenosis. Bilateral calcified ICA plaque with mild grade stenosis of the right ICA and no significant stenosis on the left. No focal acute thrombi or occlusions. N.B. : The above information has been verbally conveyed by Bucky Klein MD to Elis Nolan MD, on 08/25/2020 19:49:40 (ET). Electronically Signed: Bucky Klein MD at 19:50 EST , Service support , ADDENDUM: 01/31/21 1957 IMPRESSION: Moderate calcified plaque of the cavernous carotid arteries with bilateral moderate grade intracranial stenosis. Bilateral calcified ICA plaque with mild grade stenosis of the right ICA and no significant stenosis on the left. No focal acute thrombi or occlusions. N.B. : The above information has been verbally conveyed by Bucky Klein MD to Elis Nolan MD, on 08/25/2020 19:49:40 (ET). Electronically Signed: Bucky Klein MD at 19:50 EST , Service support , Chest X-Ray 08/25/20 19:49 IMPRESSION: No definite acute or significant abnormality seen. Electronically Signed: Bucky Klein MD at 20:30 EST , Service support , Assessment/Plan Active and Suspected Problems (Last Updated 08/12/20 @ 11:[address] Chelsie Cárdenas MD) Expressive aphasia (Acute) Hyperosmolar hyperglycemic state (HHS) (Acute) Acute renal injury (Acute) Monoclonal gammopathy (Acute) RECOMMENDATIONS: 1. Continue insulin drip until normoglycemia 2. Likely initiate Lantus therapy 3. Aggressive fluid resuscitation 4. Hold on transfusions for now 5. Defer to hospitalist on MRI and neurology consultation 6. Replace hearing aids to avoid delirium IMPRESSIONS: 1. Intermittent expressive aphasia Unclear etiology at this time. My clinical impression is this is related to hyperglycemia. Patient may be having laryngeal spasms versus focal seizures, but does not have stigmata consistent with an acute CVA in my opinion. ENT has been consulted for evaluation. If patient does have laryngospasm, paralytics will be required for placement of endotracheal tube. That being said, patient continues to improve with improving glucose. We will continue to monitor. Would defer to hospitalist, but it may not be necessary to proceed with an MRI and neurology consultation if continues to improve. 2. Diabetes mellitus type 2 with HHS secondary to steroids Patient not checking blood sugars at home leading to a glucose of over 1100. This may have led to problem #1. Patient is responding well to an insulin drip. Anticipate continuation until patient is within normal range. Patient will likely require basal insulin with sliding scale as long as steroids are recommended by nephrology. 3. Acute kidney injury on CKD stage II secondary to acute interstitial nephritis Recent exacerbation likely secondary to decreased volume associated with problem #2. Patient will receive aggressive hydration. Defer to nephrology on dialysis. They have been consulted. Patient did not have acute hyponatremia on presentation as this corrects with glucose. 4. Acute anemia and thrombocytopenia Clinical suspicion for elements of renal dysfunction leading to current findings. Patient appears to be responding well to therapy. Recent bone marrow was not suggestive of a functional abnormality. Hold on anticoagulation for now. No indications for transfusion from my perspective 5. CAD/hypertension/hyperlipidemia/GERD/BPH/advanced age/hard of hearing Complicates care, management, recovery and prognosis. Likely okay to continue with baseline medications. Patient should have hearing aids put in place to avoid complications with delirium. Inpatient E&M: 59431 Init Hosp L3
[2020-08-26] MEDS: 0.9% Saline Lock 10 ML Syringe IV (09:00)
[2020-08-26 09:10] LABS: Bedside Glucose 403 mg/dL (70-110)
[2020-08-26] MEDS: Acetaminophen 325 MG Tablet 650 MG PO (09:58)
[2020-08-26 11:11] LABS: Bedside Glucose 383 mg/dL (70-110)
--- NOTE | 2020-08-26 11:50 | CON.PCM_ITS ---
Problem List (1) Acute renal injury Status: Acute Consultation - Renal 08/26/20 PCP/ Referring MD: Requesting physician: [] Primary care physician: Dr. Guanakito Quarles MD Reason for Consultation:: JAKOB - History of Present Illness History of Present Illness: The patient is a 74 year old M known to us from recent admission. He was recently admitted for acute renal failure. Kidney biopsy was consistent with interstitial nephritis, calcium oxalate deposits. He was empirically started on prednisone and was discharged home about 10 days ago. Came back with what look s like vocal cord issues which is resolved now. Found to have severe hyperglycemia with glucose of 1000. Was started on insulin drip and currently in the ICU. He is currently alert awake oriented. Denies any complaints. Feels well. - Allergies Allergies: Allergies scopolamine Adverse Reaction (Verified 08/25/20 19:08) HALLUCINATIONS SOME TYPE OF IV DYE FOR ULTRA BRYCE Adverse Reaction (Uncoded 08/25/20 19:08) backache Had during ultrasound of his heart - Current Medications Current Medications: Current Medications Acetaminophen (Acetaminophen 325 Mg Tablet) 650 mg PO Q6H PRN PRN PRN Reason: Pain 1-10 or Fever Last Admin: 08/26/20 09:58 Dose: 650 mg Documented by: Albuterol Sulfate (Albuterol 2.5 Mg/3 Ml Vial.Neb.) 2.5 mg INHALATION Q2H PRN PRN PRN Reason: Dyspnea, wheezing Amiodarone HCl (Amiodarone 200 Mg Tablet) 200 mg PO DAILY [facility] Last Admin: 08/26/20 08:56 Dose: 200 mg Documented by: Aspirin (Aspirin 81 Mg Tab.Chew) 81 mg PO DAILY@0800 [facility] Last Admin: 08/26/20 08:56 Dose: 81 mg Documented by: Dextrose (Dextrose 50%-Water 25 Gm/50 Ml Disp.Syrin) 0 gm IV X1 PRN; Protocol PRN Reason: Hypoglycemia Protocol Hydralazine HCl (Hydralazine 20 Mg/Ml Vial) 10 mg IV Q4H PRN PRN PRN Reason: SBP > 160 Insulin Human Lispro 100 unit/ (Sodium Chloride) 100 mls @ 8.93 mls/hr CONT INF .[id number] [facility]; Protocol Last Infusion: 08/26/20 11:09 Dose: 0.01 units/kg/hr, 1.1 mls/hr Documented by: Sodium Chloride () 1,000 mls @ 100 mls/hr IV .Q10H [facility] Last Infusion: 08/26/20 11:46 Dose: 100 mls/hr Documented by: Sodium Chloride () 250 mls @ 15 mls/hr IV .[id number] PRN PRN Reason: Saline Flush Sodium Chloride () 250 mls @ 15 mls/hr IV .[id number] PRN PRN Reason: Additional IVPB Infusion Labetalol HCl (Labetalol (Prefilled) 20 Mg/4 Ml) 20 mg IV X1 PRN PRN Reason: BLOOD PRESSURE Labetalol HCl (Labetalol (Prefilled) 20 Mg/4 Ml) 10 - 20 mg IV Q10M PRN PRN PRN Reason: to Maintain BP Goals Pantoprazole Sodium (Pantoprazole Sodium 40 Mg Tablet) 40 mg PO DAILY [facility] Last Admin: 08/26/20 08:57 Dose: 40 mg Documented by: Pravastatin Sodium (Pravastatin 20 Mg Tablet) 20 mg PO QHS [facility] Last Admin: 08/25/20 23:29 Dose: 20 mg Documented by: Prednisone (Prednisone 20 Mg Tablet) 60 mg PO DAILYCM [facility] Last Admin: 08/26/20 08:56 Dose: 60 mg Documented by: Sodium Chloride (0.9% Saline Lock 10 Ml Syringe) 10 - 40 ml IV UD PRN PRN Reason: SALINE FLUSH Last Admin: 08/26/20 09:00 Dose: 20 ml Documented by: Tamsulosin HCl (Tamsulosin Hcl 0.4 Mg Capsule) 0.4 mg PO DAILY [facility] Last Admin: 08/26/20 08:56 Dose: 0.4 mg Documented by: - Past Medical History Past Medical History (Chronic Problems): Chronic Problems (Last Updated 08/12/20 @ 11:[address] 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) Pure hypercholesterolemia (Chronic) Essential hypertension (Chronic) Atherosclerotic heart disease of [place] coronary artery without angina pectoris (Chronic) CX 20-30% prox-mid stenosis, LAD 20-30% and 10-20% anterior trunk stenosis, OM1 20-30% tapering ostial stenosis, RCA 20% prox stenosis- per cath 08/14/08; LEFT MAIN: Mild luminal irregularities; LEFT ANTERIOR DESCENDING ARTERY: PROX LAD: Mild calcification, Mild luminal irregularities, eccentric: 10 - 25 % Stenosis; MID LAD: Mild luminal irregularities; CIRCUMFLEX ARTERY: Mild luminal irregularities; RIGHT CORONARY ARTERY: PROX RCA: Mild calcification, Mild luminal irregularities, eccentric: 10 - 25 % Stenosis MID RCA: Mild luminal irregularities; AORTIC ROOT: Angiographically normal per cath 05/16/19 Paroxysmal atrial fibrillation (Chronic) Gastroesophageal reflux disease (Chronic) Diabetes mellitus, type II (Chronic) - Past Surgical History Surgical History: cholecystectomy - Cholecystectomy with ERCP. - Social History Smoking Status: Never smoker Alcohol: None Drugs: None - Family History Maternal Family History: Family History (Last Reviewed 01/22/20 @ 11:08 by Brittani Peoples) Father CAD (coronary artery disease) Mother Alzheimers disease Sister Breast cancer History Items: Dementia Paternal Family History: Family History (Last Reviewed 01/22/20 @ 11:08 by Brittani Peoples) Father CAD (coronary artery disease) Mother Alzheimers disease Sister Breast cancer History Items: Cancer - Father with history of colon cancer., High Cholesterol, Heart Disease, Hypertension Review of Systems Constitutional: Denies: Chills, Fever, Weight Change HEENT: Denies: Head Aches, Sinus Congestion, Sinus Drainage Cardiovascular: Denies: Chest Pain, Palpitations Respiratory: Denies: Cough, Shortness of breath at rest, Sputum production Gastrointestinal: Denies: Abdominal Pain, Nausea, Vomiting Genitourinary: Denies: Dysuria Musculoskeletal: Denies: Joint Pain, Joint Tenderness Skin: Denies: Rash, Wounds Neurological: Denies: Numbness, Tingling, Focal weakness Psychiatric: Denies: Anxiety, Depression, Homicidal Ideations, Suicidal Ideations Hematologic/ Lymphatic: Denies: Easy Bruising, Easy Bleeding Patient Problems: Active and Suspected Problems (Last Updated 08/12/20 @ 11:[address] Chelsie Cárdenas MD) Expressive aphasia (Acute) Hyperosmolar hyperglycemic state (HHS) (Acute) Acute renal injury (Acute) Monoclonal gammopathy (Acute) - Physical Exam Vitals/I&O's: Vital Signs Temp Pulse Resp BP Pulse Ox 96.5 F L 52 L 14 126/64 H 98 08/26/20 08:00 08/26/20 11:00 08/26/20 11:00 08/26/20 11:00 08/26/20 11:00 Oxygen Delivery Method Room Air Weight: 81.478 kg Body Mass Index (BMI) 25.2 Finger Stick Blood Glucose 383 Intake and Output for Last 24 Hours 08/24/20 08/25/20 08/26/20 23:59 23:59 23:59 Intake Total 1025.07 / 1175.07 2711.44 / 2711.44 Output Total 300 / 300 850 / 850 Balance 725.07 / 875.07 1861.44 / 1861.44 General: Alert, Oriented x3, Cooperative HEENT: Atraumatic, PERRLA, EOMI, Normocephalic Neck: Supple, No JVD, Negative Carotid Bruits Lungs: Clear to auscultation, Normal air movement Cardiovascular: Regular rate, No murmurs Abdomen: Bowel Sounds Present, Soft, Non Tender Extremities: No edema, Capillary Refill Less than 3 Seconds Skin: No rashes, No breakdown Musculoskeletal: No Tenderness to Palpation of Joints or Extremities Neurological: Cranial nerves II-XII grossly intact Psych/Mental Status: Normal Affect, Appropriate Laboratory Results 08/25/20 19:10: WBC 20.5 H, RBC 3.04 L, Hgb 9.5 L, Hct 30.1 L, MCV 99.0 H, MCH 31.3, MCHC 31.6 L, RDW Std Deviation 53.4 H, RDW Coeff of Dano 14.7 H, Plt Count 104 L, MPV 12.8 H, Immature Gran % (Auto) 3.200 H, Neut % (Auto) 89.0 H, Lymph % (Auto) 1.9 L, [place] % (Auto) 5.8, Eos % (Auto) 0.0, Baso % (Auto) 0.1, Absolute Neuts (auto) 18.2 H, Absolute Lymphs (auto) 0.38 L, Nucleated RBC % 0, Differential Comment SCANNED, Platelet Estimate SLT DEC, Anisocytosis 1+, Schistocytes RARE 08/25/20 19:10: PT 14.4, INR 1.2, APTT 22.6 L 08/25/20 19:10: Sodium 124 L, Potassium 4.3, Chloride 86 L, Carbon Dioxide 26.0, Anion Gap 12, BUN 60 H, Creatinine 4.40 H, Estim Creat Clear Calc 14.98, Est GFR (MDRD) Af Amer 17 L, Est GFR (MDRD) Non-Af 14 L, BUN/Creatinine Ratio 13.6, Glucose 1120 H*, Calcium 8.0 L, Troponin I < 0.015 08/25/20 19:10: Phosphorus 4.9, Magnesium 1.7 08/25/20 19:10: Serum Osmolality 346 H 08/25/20 19:10: Hemoglobin A1c 8.8 H 08/25/20 19:17: POC Glucose > 500 H* 08/25/20 21:54: POC Glucose > 500 H* 08/25/20 22:00: Glucose 1062 H* 08/25/20 23:00: Sodium 127 L, Potassium 4.0, Chloride 91 L, Carbon Dioxide 25.0, Anion Gap 11, BUN 61 H, Creatinine 4.36 H, Estim Creat Clear Calc 15.12, Est GFR (MDRD) Af Amer 17 L, Est GFR (MDRD) Non-Af 14 L, BUN/Creatinine Ratio 14.0, Glucose 940 H*, Calcium 7.8 L 08/25/20 23:08: POC Glucose > 500 H* 08/25/20 23:20: Troponin I 0.018 08/26/20 00:59: Troponin I 0.019 08/26/20 00:59: Glucose 730 H* 08/26/20 03:03: WBC 14.8 H, RBC 2.50 L, Hgb 7.7 L, Hct 22.6 L, MCV 90.4 D, MCH 30.8, MCHC 34.1 D, RDW Std Deviation 43.9, RDW Coeff of [place] 13.2, Plt Count 80 L, MPV 13.6 H, Immature Gran % (Auto) 2.500 H, Neut % (Auto) 88.7 H, Lymph % (Auto) 2.2 L, [place] % (Auto) 6.5, Eos % (Auto) 0.0, Baso % (Auto) 0.1, Absolute Neuts (auto) 13.2 H, Absolute Lymphs (auto) 0.33 L, Nucleated RBC % 0 08/26/20 03:03: Sodium 130 L, Potassium 3.9, Chloride 94 L, Carbon Dioxide 27.0, Anion Gap 9, BUN 62 H, Creatinine 4.26 H, Estim Creat Clear Calc 15.47, Est GFR (MDRD) Af Amer 18 L, Est GFR (MDRD) Non-Af 15 L, BUN/Creatinine Ratio 14.6, Glucose 653 H*, Calcium 7.7 L, Total Bilirubin 0.50, AST 8 L, ALT 122 H, Alkaline Phosphatase 89, Total Protein 4.1 L, Albumin 1.9 L, Globulin 2.2, Albumin/Globulin Ratio 0.9, Triglycerides 40, Cholesterol 62, LDL Cholesterol 14, VLDL Cholesterol 8, HDL Cholesterol 40, TSH 0.20 L, Free T4 1.00 08/26/20 05:15: Glucose 520 H* 08/26/20 06:55: Sodium 133 L, Potassium 3.9, Chloride 98, Carbon Dioxide 25.0, Anion Gap 10, BUN 57 H, Creatinine 3.93 H, Estim Creat Clear Calc 16.77, Est GFR (MDRD) Af Amer 19 L, Est GFR (MDRD) Non-Af 16 L, BUN/Creatinine Ratio 14.5, Glucose 439 H, Calcium 7.5 L 08/26/20 09:06: POC Glucose 403 H 08/26/20 11:06: POC Glucose 383 H Current Medications Acetaminophen (Acetaminophen 325 Mg Tablet) 650 mg PO Q6H PRN PRN PRN Reason: Pain 1-10 or Fever Last Admin: 08/26/20 09:58 Dose: 650 mg Documented by: Albuterol Sulfate (Albuterol 2.5 Mg/3 Ml Vial.Neb.) 2.5 mg INHALATION Q2H PRN PRN PRN Reason: Dyspnea, wheezing Amiodarone HCl (Amiodarone 200 Mg Tablet) 200 mg PO DAILY [facility] Last Admin: 08/26/20 08:56 Dose: 200 mg Documented by: Aspirin (Aspirin 81 Mg Tab.Chew) 81 mg PO DAILY@0800 [facility] Last Admin: 08/26/20 08:56 Dose: 81 mg Documented by: Dextrose (Dextrose 50%-Water 25 Gm/50 Ml Disp.Syrin) 0 gm IV X1 PRN; Protocol PRN Reason: Hypoglycemia Protocol Hydralazine HCl (Hydralazine 20 Mg/Ml Vial) 10 mg IV Q4H PRN PRN PRN Reason: SBP > 160 Insulin Human Lispro 100 unit/ (Sodium Chloride) 100 mls @ 8.93 mls/hr CONT INF .[id number] [facility]; Protocol Last Infusion: 08/26/20 11:09 Dose: 0.01 units/kg/hr, 1.1 mls/hr Documented by: Sodium Chloride () 1,000 mls @ 100 mls/hr IV .Q10H [facility] Last Infusion: 08/26/20 11:46 Dose: 100 mls/hr Documented by: Sodium Chloride () 250 mls @ 15 mls/hr IV .[id number] PRN PRN Reason: Saline Flush Sodium Chloride () 250 mls @ 15 mls/hr IV .[id number] PRN PRN Reason: Additional IVPB Infusion Labetalol HCl (Labetalol (Prefilled) 20 Mg/4 Ml) 20 mg IV X1 PRN PRN Reason: BLOOD PRESSURE Labetalol HCl (Labetalol (Prefilled) 20 Mg/4 Ml) 10 - 20 mg IV Q10M PRN PRN PRN Reason: to Maintain BP Goals Pantoprazole Sodium (Pantoprazole Sodium 40 Mg Tablet) 40 mg PO DAILY [facility] Last Admin: 08/26/20 08:57 Dose: 40 mg Documented by: Pravastatin Sodium (Pravastatin 20 Mg Tablet) 20 mg PO QHS [facility] Last Admin: 08/25/20 23:29 Dose: 20 mg Documented by: [facility] ([facility] Mg [facility] Admin: 08/26/20 08:56 Dose: 60 mg Documented by: Sodium Chloride (0.9% Saline Lock 10 Ml Syringe) 10 - 40 ml IV UD PRN PRN Reason: SALINE FLUSH Last Admin: 08/26/20 09:00 Dose: 20 ml Documented by: Tamsulosin HCl (Tamsulosin Hcl 0.4 Mg Capsule) 0.4 mg PO DAILY [facility] Last Admin: 08/26/20 08:56 Dose: 0.4 mg Documented by: Assessment/Plan All Active Problems (Last Updated 08/12/20 @ 11:[address] Chelsie Cárdenas MD) Expressive aphasia (Acute) Hyperosmolar hyperglycemic state (HHS) (Acute) Acute renal injury (Acute) Monoclonal gammopathy (Acute) Acute renal failure. Recent blood work-up showed positive serum protein electrophoresis, positive JOLANTA, positive double-stranded DNA, borderline C3. We did a kidney biopsy which showed interstitial nephritis with extensive calcium oxalate deposition. Extensive dietary review, medication review did not yield any source of calcium oxalate deposition. He was empirically started on steroids. Urine output has picked up over the last few days. Last dialysis was Wednesday. Creatinine today is actually better compared to yesterday. Volume status is okay. Hold off dialysis today. Will review labs and other data tomorrow and decide on further dialysis. Hyperglycemia. Likely contributory factor was prednisone. The plan was to taper off prednisone after 2 weeks of therapy. We might start weaning of sometime this week
[2020-08-26 12:55] LABS: Bedside Glucose 363 mg/dL (70-110)
--- NOTE | 2020-08-26 13:14 | CON.PCM_ITS ---
Problem List (1) Dysphasia Status: Acute Reason for Consult Date of Consultation: 08/26/20 History of Present Illness: The patient is a 74 year old M with an extensive medical history and significant diabetes who presented with episodic subjective inability to form words. he states that he would feel like his larynx and mouth were 'mushy' and could only make garbled sounds. denies any other neurologic symptoms. no high-pitched stridor, did not happen while supine in bed / asleep. he has been doing well today with no episodes. of note, blood sugar was 1k on admission. CTA with some CV compromise from a caliber stand point, but nothing acute was seen. larynx normal on CT. Past Medical History Past Medical History (Chronic Problems): Chronic Problems (Last Updated 08/12/20 @ 11:[address] 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) CAD in [place] artery (Chronic) Pure hypercholesterolemia (Chronic) Essential hypertension (Chronic) Atherosclerotic heart disease of [place] coronary artery without angina pectoris (Chronic) CX 20-30% prox-mid stenosis, LAD 20-30% and 10-20% anterior trunk stenosis, OM1 20-30% tapering ostial stenosis, RCA 20% prox stenosis- per cath 08/14/08; LEFT MAIN: Mild luminal irregularities; LEFT ANTERIOR DESCENDING ARTERY: PROX LAD: Mild calcification, Mild luminal irregularities, eccentric: 10 - 25 % Stenosis; MID LAD: Mild luminal irregularities; CIRCUMFLEX ARTERY: Mild luminal irregularities; RIGHT CORONARY ARTERY: PROX RCA: Mild calci fication, Mild luminal irregularities, eccentric: 10 - 25 % Stenosis MID RCA: Mild luminal irregularities; AORTIC ROOT: Angiographically normal per cath 05/16/19 Paroxysmal atrial fibrillation (Chronic) Gastroesophageal reflux disease (Chronic) Diabetes mellitus, type II (Chronic) Medical History: Medical History (Last Updated 08/12/20 @ 11:[address] Chelsie Cárdenas MD) Pure hypercholesterolemia (Chronic) E78.00 Essential hypertension (Chronic) I10 Atherosclerotic heart disease of [place] coronary artery without angina pectoris (Chronic) I25.10 CX 20-30% prox-mid stenosis, LAD 20-30% and 10-20% anterior trunk stenosis, OM1 20-30% tapering ostial stenosis, RCA 20% prox stenosis- per cath 08/14/08; LEFT MAIN: Mild luminal irregularities; LEFT ANTERIOR DESCENDING ARTERY: PROX LAD: Mild calcification, Mild luminal irregularities, eccentric: 10 - 25 % Stenosis; MID LAD: Mild luminal irregularities; CIRCUMFLEX ARTERY: Mild luminal irregularities; RIGHT CORONARY ARTERY: PROX RCA: Mild calcification, Mild luminal irregularities, eccentric: 10 - 25 % Stenosis MID RCA: Mild luminal irregularities; AORTIC ROOT: Angiographically normal per cath 05/16/19 Paroxysmal atrial fibrillation (Chronic) I48.0 Diabetes mellitus, type II (Chronic) E11.9 Body mass index (bmi) 29.0-29.9, adult Z68.29 Chest pain R07.9 History of left heart catheterization (LHC) Onset Date: ~05/16/19 Z98.890 CX 20-30% prox-mid stenosis, LAD 20-30% and 10-20% anterior trunk stenosis, OM1 20-30% tapering ostial stenosis, RCA 20% prox stenosis- per cath 08/14/08 ; LEFT MAIN: Mild luminal irregularities; LEFT ANTERIOR DESCENDING ARTERY: PROX LAD: Mild calcification, Mild luminal irregularities, eccentric: 10 - 25 % Stenosis; MID LAD: Mild luminal irregularities; CIRCUMFLEX ARTERY: Mild luminal irregularities; RIGHT CORONARY ARTERY: PROX RCA: Mild calcification, Mild luminal irregularities, eccentric: 10 - 25 % Stenosis MID RCA: Mild luminal irregularities; AORTIC ROOT: Angiographically normal per cath 05/16/19 CAD (coronary artery disease) (Inactive) I25.10 Wide-complex tachycardia (Inactive) I47.2 Allergies scopolamine Adverse Reaction (Verified 08/25/20 19:08) HALLUCINATIONS SOME TYPE OF IV DYE FOR ULTRA BRYCE Adverse Reaction (Uncoded 08/25/20 19:08) backache Had during ultrasound of his heart Home Medications: Ambulatory Orders Medication Instructions Recorded Tamsulosin HCl [Flomax] 0.4 mg PO DAILY 01/21/16 sitagliptin 100 mg tablet 100 mg PO DAILY 10/26/17 metoprolol tartrate 50 mg tablet 50 mg PO BID 10/18/18 omega-3 fatty acids 1,000 mg 1,000 mg PO DAILY@1200 cap 01/22/20 capsule pravastatin 20 mg tablet 20 mg PO QHS #90 tab 12/16/20 Amiodarone HCl 200 mg PO DAILY 08/05/20 Glimepiride [Amaryl] 8 mg PO DAILY #90 tab 08/16/20 Pantoprazole Sodium [Protonix] 40 mg PO DAILY #30 tab 08/16/20 Prednisone 60 mg PO DAILY #180 tab.ds.pk 08/16/20 Amlodipine Besylate [Norvasc] 10 mg PO DAILY 08/25/20 Surgical History: Surgical History (Last Reviewed 01/22/20 @ 11:08 by Brittani Peoples) History of ERCP Z98.890 Hx laparoscopic cholecystectomy Z90.49 Surgical History: cholecystectomy - Cholecystectomy with ERCP. Psychiatric History: No pertinent psych hx Lives: Spouse/ Significant Other Smoking Status: Never smoker Tobacco Use: Non-smoker Alcohol: None Drugs: None - *Family History Maternal Family History: Family History (Last Reviewed 01/22/20 @ 11:08 by Brittani Peoples) Father CAD (coronary artery disease) Mother Alzheimers disease Sister Breast cancer History Items: Dementia Paternal Family History: Family History (Last Reviewed 01/22/20 @ 11:08 by Brittani Peoples) Father CAD (coronary artery disease) Mother Alzheimers disease Sister Breast cancer History Items: Cancer - Father with history of colon cancer., High Cholesterol, Heart Disease, Hypertension Review of Systems Constitutional: Denies: Anorexia, Chills, Fatigue HEENT: Reports: Difficulty Hearing. Denies: Difficulty Swallowing, Dysphasia Cardiovascular: Denies: Chest Pain Respiratory: Denies: Cough Gastrointestinal: Denies: Abdominal Pain, Nausea, Vomiting Patient Problems: Active and Suspected Problems (Last Updated 08/12/20 @ 11:[address] Chelsie Cárdenas MD) Expressive aphasia (Acute) Hyperosmolar hyperglycemic state (HHS) (Acute) Acute renal injury (Acute) Monoclonal gammopathy (Acute) - Physical Exam Vitals/I&O's: Vital Signs Temp Pulse Resp BP Pulse Ox 97.0 F L 54 L 14 125/63 H 100 08/26/20 12:00 08/26/20 12:00 08/26/20 12:00 08/26/20 12:00 08/26/20 12:00 Oxygen Delivery Method Room Air Weight: 81.478 kg Body Mass Index (BMI) 25.2 Finger Stick Blood Glucose 383 Intake and Output for Last 24 Hours 08/24/20 08/25/20 08/26/20 23:59 23:59 23:59 Intake Total 1025.07 / 1175.07 2711.44 / 2711.44 Output Total 300 / 300 850 / 850 Balance 725.07 / 875.07 1861.44 / 1861.44 General: Alert, Oriented x3 Oral: Moist Mucosa, - - palate symmetric, tongue protrusion symmetric. Neck: Supple, No JVD, Negative Carotid Bruits Lungs: - - no stridor, normal voice. Laboratory Results 08/25/20 19:10: WBC 20.5 H, RBC 3.04 L, Hgb 9.5 L, Hct 30.1 L, MCV 99.0 H, MCH 31.3, MCHC 31.6 L, RDW Std Deviation 53.4 H, RDW Coeff of Dano 14.7 H, Plt Count 104 L, MPV 12.8 H, Immature Gran % (Auto) 3.200 H, Neut % (Auto) 89.0 H, Lymph % (Auto) 1.9 L, Lake % (Auto) 5.8, Eos % (Auto) 0.0, Baso % (Auto) 0.1, Absolute Neuts (auto) 18.2 H, Absolute Lymphs (auto) 0.38 L, Nucleated RBC % 0, Differential Comment SCANNED, Platelet Estimate SLT DEC, Anisocytosis 1+, Schistocytes RARE 08/25/20 19:10: PT 14.4, INR 1.2, APTT 22.6 L 08/25/20 19:10: Sodium 124 L, Potassium 4.3, Chloride 86 L, Carbon Dioxide 26.0, Anion Gap 12, BUN 60 H, Creatinine 4.40 H, Estim Creat Clear Calc 14.98, Est GFR (MDRD) Af Amer 17 L, Est GFR (MDRD) Non-Af 14 L, BUN/Creatinine Ratio 13.6, Glucose 1120 H*, Calcium 8.0 L, Troponin I < 0.015 08/25/20 19:10: Phosphorus 4.9, Magnesium 1.7 08/25/20 19:10: Serum Osmolality 346 H 08/25/20 19:10: Hemoglobin A1c 8.8 H 08/25/20 19:17: POC Glucose > 500 H* 08/25/20 21:54: POC Glucose > 500 H* 08/25/20 22:00: Glucose 1062 H* 08/25/20 23:00: Sodium 127 L, Potassium 4.0, Chloride 91 L, Carbon Dioxide 25.0, Anion Gap 11, BUN 61 H, Creatinine 4.36 H, Estim Creat Clear Calc 15.12, Est GFR (MDRD) Af Amer 17 L, Est GFR (MDRD) Non-Af 14 L, BUN/Creatinine Ratio 14.0, Glucose 940 H*, Calcium 7.8 L 08/25/20 23:08: POC Glucose > 500 H* 08/25/20 23:20: Troponin I 0.018 08/26/20 00:59: Troponin I 0.019 08/26/20 00:59: Glucose 730 H* 08/26/20 03:03: WBC 14.8 H, RBC 2.50 L, Hgb 7.7 L, Hct 22.6 L, MCV 90.4 D, MCH 30.8, MCHC 34.1 D, RDW Std Deviation 43.9, RDW Coeff of Dano 13.2, Plt Count 80 L, MPV 13.6 H, Immature Gran % (Auto) 2.500 H, Neut % (Auto) 88.7 H, Lymph % (Auto) 2.2 L, Lake % (Auto) 6.5, Eos % (Auto) 0.0, Baso % (Auto) 0.1, Absolute Neuts (auto) 13.2 H, Absolute Lymphs (auto) 0.33 L, Nucleated RBC % 0 08/26/20 03:03: Sodium 130 L, Potassium 3.9, Chloride 94 L, Carbon Dioxide 27.0, Anion Gap 9, BUN 62 H, Creatinine 4.26 H, Estim Creat Clear Calc 15.47, Est GFR (MDRD) Af Amer 18 L, Est GFR (MDRD) Non-Af 15 L, BUN/Creatinine Ratio 14.6, Glucose 653 H*, Calcium 7.7 L, Total Bilirubin 0.50, AST 8 L, ALT 122 H, Alkaline Phosphatase 89, Total Protein 4.1 L, Albumin 1.9 L, Globulin 2.2, A lbumin/Globulin Ratio 0.9, Triglycerides 40, Cholesterol 62, LDL Cholesterol 14, VLDL Cholesterol 8, HDL Cholesterol 40, TSH 0.20 L, Free T4 1.00 08/26/20 05:15: Glucose 520 H* 08/26/20 06:55: Sodium 133 L, Potassium 3.9, Chloride 98, Carbon Dioxide 25.0, Anion Gap 10, BUN 57 H, Creatinine 3.93 H, Estim Creat Clear Calc 16.77, Est GFR (MDRD) Af Amer 19 L, Est GFR (MDRD) Non-Af 16 L, BUN/Creatinine Ratio 14.5, Glucose 439 H, Calcium 7.5 L 08/26/20 09:06: POC Glucose 403 H 08/26/20 11:06: POC Glucose 383 H 08/26/20 12:51: POC Glucose 363 H Current Medications Acetaminophen (Acetaminophen 325 Mg Tablet) 650 mg PO Q6H PRN PRN PRN Reason: Pain 1-10 or Fever Last Admin: 08/26/20 09:58 Dose: 650 mg Documented by: Albuterol Sulfate (Albuterol 2.5 Mg/3 Ml Vial.Neb.) 2.5 mg INHALATION Q2H PRN PRN PRN Reason: Dyspnea, wheezing Amiodarone HCl (Amiodarone 200 Mg Tablet) 200 mg PO DAILY [facility] Last Admin: 08/26/20 08:56 Dose: 200 mg Documented by: Aspirin (Aspirin 81 Mg Tab.Chew) 81 mg PO DAILY@0800 [facility] Last Admin: 08/26/20 08:56 Dose: 81 mg Documented by: Dextrose (Dextrose 50%-Water 25 Gm/50 Ml Disp.Syrin) 0 gm IV X1 PRN; Protocol PRN Reason: Hypoglycemia Protocol Hydralazine HCl (Hydralazine 20 Mg/Ml Vial) 10 mg IV Q4H PRN PRN PRN Reason: SBP > 160 Insulin Human Lispro 100 unit/ (Sodium Chloride) 100 mls @ 8.93 mls/hr CONT INF .[id number] [facility]; Protocol Last Infusion: 08/26/20 11:09 Dose: 0.01 units/kg/hr, 1.1 mls/hr Documented by: Sodium Chloride () 1,000 mls @ 100 mls/hr IV .Q10H [facility] Last Infusion: 08/26/20 11:46 Dose: 100 mls/hr Documented by: Sodium Chloride () 250 mls @ 15 mls/hr IV .[id number] PRN PRN Reason: Saline Flush Sodium Chloride () 250 mls @ 15 mls/hr IV .[id number] PRN PRN Reason: Additional IVPB Infusion Labetalol HCl (Labetalol (Prefilled) 20 Mg/4 Ml) 20 mg IV X1 PRN PRN Reason: BLOOD PRESSURE Labetalol HCl (Labetalol (Prefilled) 20 Mg/4 Ml) 10 - 20 mg IV Q10M PRN PRN PRN Reason: to Maintain BP Goals Pantoprazole Sodium (Pantoprazole Sodium 40 Mg Tablet) 40 mg PO DAILY [facility] Last Admin: 08/26/20 08:57 Dose: 40 mg Documented by: Pravastatin Sodium (Pravastatin 20 Mg Tablet) 20 mg PO QHS [facility] Last Admin: 08/25/20 23:29 Dose: 20 mg Documented by: Prednisone (Pred[facility] 20 Mg Tablet) [facility] Last Admin: 08/26/20 08:56 Dose: 60 mg Documented by: Sodium Chloride (0.9% Saline Lock 10 Ml Syringe) 10 - 40 ml IV UD PRN PRN Reason: SALINE FLUSH Last Admin: 08/26/20 09:00 Dose: 20 ml Documented by: Tamsulosin HCl (Tamsulosin Hcl 0.4 Mg Capsule) 0.4 mg PO DAILY [facility] Last Admin: 08/26/20 08:56 Dose: 0.4 mg Documented by: Assessment/Plan All Active Problems (Last Updated 08/12/20 @ 11:[address] Chelsie Cárdenas MD) Expressive aphasia (Acute) Hyperosmolar hyperglycemic state (HHS) (Acute) Dysphasia (Acute) Acute renal injury (Acute) Monoclonal gammopathy (Acute) 74 year old male with subjective dysphasia, episodic -laryngoscopy normal, physical exam normal. no recent episodes since admission to the ICU. -CTA unremarkable from acute standpoint. -unlikely primary laryngeal pathology. if there is a low suspicion of an episodic cerebrovascular flow issue, it seems that some sort of mental status changes manifested in speech related to his very high glucose would be the most reasonable assumption at this point.
--- NOTE | 2020-08-26 13:22 | CASEMGMT ---
PHQ-9 not completed as CVA ruled out. POLO Steward
--- NOTE | 2020-08-26 13:23 | PCM.OPRPT ---
Problem List (1) Dysphasia Status: Acute Report of Operation Date of Procedure: 08/26/20 Pre-Operative Diagnosis: dysphasia Post-Operative Diagnosis: dysphasia Surgery/Procedure Performed:: flexible fiberoptic laryngoscopy Type of Anesthesia:: Local Description of Procedure: the flexible laryngoscope was placed in the patient's right nostril. nose and nasopharyx normal. the larynx was symmetric. normal vocal cords with normal motion. hypopharynx and supraglottis unremarkable. visualized subglottis normal.
--- NOTE | 2020-08-26 13:40 | PCM.PN.HOSP ---
Patient Problems: Active and Suspected Problems (Last Updated 08/12/20 @ 11:[address] Chelsie Cárdenas MD) Expressive aphasia (Acute) Hyperosmolar hyperglycemic state (HHS) (Acute) Dysphasia (Acute) Acute renal injury (Acute) Monoclonal gammopathy (Acute) Reason for Visit: HHS Subjective: Feels well. Vitals/I&O's: Vital Signs Temp Pulse Resp BP Pulse Ox 36.1 C L 54 L 14 125/63 H 100 08/26/20 12:00 08/26/20 12:00 08/26/20 12:00 08/26/20 12:00 08/26/20 12:00 Oxygen Delivery Method Room Air Weight: 81.478 kg Body Mass Index (BMI) 25.2 Finger Stick Blood Glucose 383 Intake and Output for Last 24 Hours 08/24/20 08/25/20 08/26/20 23:59 23:59 23:59 Intake Total 1025.07 / 1175.07 2711.44 / 2711.44 Output Total 300 / 300 850 / 850 Balance 725.07 / 875.07 1861.44 / 1861.44 General: Alert, No apparent distress HEENT: Atraumatic, Normocephalic Oral: Moist Mucosa, No Gingival or Mucosal Lesions/ Ulcerations Neck: No Nodes, Thyroid Normal Size and Texture Lungs: Clear to auscultation, Normal air movement, No rhonchi, No wheeze, No rales Cardiovascular: Regular rate, Regular Rhythm, Normal S1, Normal S2, No murmurs Abdomen: Bowel Sounds Present, Soft, Non Tender, Non-Distended, No Hepato-splenomegaly Extremities: No edema, No Calf Tenderness Skin: No rashes, No breakdown Musculoskeletal: No Tenderness to Palpation of Joints or Extremities, No Muscle Wasting Neurological: Cranial nerves II-XII grossly intact, Motor Exam 5/5 strength throughout, Coordination normal Psych/Mental Status: Normal Affect, Appropriate Laboratory Results 08/25/20 19:10: WBC 20.5 H, RBC 3.04 L, Hgb 9.5 L, Hct 30.1 L, MCV 99.0 H, MCH 31.3, MCHC 31.6 L, RDW Std Deviation 53.4 H, RDW Coeff of Dano 14.7 H, Plt Count 104 L, MPV 12.8 H, Immature Gran % (Auto) 3.200 H, Neut % (Auto) 89.0 H, Lymph % (Auto) 1.9 L, [place] % (Auto) 5.8, Eos % (Auto) 0.0, Baso % (Auto) 0.1, Absolute Neuts (auto) 18.2 H, Absolute Lymphs (auto) 0.38 L, Nucleated RBC % 0, Differential Comment SCANNED, Platelet Estimate SLT DEC, Anisocytosis 1+, Schistocytes RARE 08/25/20 19:10: PT 14.4, INR 1.2, APTT 22.6 L 08/25/20 19:10: Sodium 124 L, Potassium 4.3, Chloride 86 L, Carbon Dioxide 26.0, Anion Gap 12, BUN 60 H, Creatinine 4.40 H, Estim Creat Clear Calc 14.98, Est GFR (MDRD) Af Amer 17 L, Est GFR (MDRD) Non-Af 14 L, BUN/Creatinine Ratio 13.6, Glucose 1120 H*, Calcium 8.0 L, Troponin I < 0.015 08/25/20 19:10: Phosphorus 4.9, Magnesium 1.7 08/25/20 19:10: Serum Osmolality 346 H 08/25/20 19:10: Hemoglobin A1c 8.8 H 08/25/20 19:17: POC Glucose > 500 H* 08/25/20 21:54: POC Glucose > 500 H* 08/25/20 22:00: Glucose 1062 H* 08/25/20 23:00: Sodium 127 L, Potassium 4.0, Chloride 91 L, Carbon Dioxide 25.0, Anion Gap 11, BUN 61 H, Creatinine 4.36 H, Estim Creat Clear Calc 15.12, Est GFR (MDRD) Af Amer 17 L, Est GFR (MDRD) Non-Af 14 L, BUN/Creatinine Ratio 14.0, Glucose 940 H*, Calcium 7.8 L 08/25/20 23:08: POC Glucose > 500 H* 08/25/20 23:20: Troponin I 0.018 08/26/20 00:59: Troponin I 0.019 08/26/20 00:59: Glucose 730 H* 08/26/20 03:03: WBC 14.8 H, RBC 2.50 L, Hgb 7.7 L, Hct 22.6 L, MCV 90.4 D, MCH 30.8, MCHC 34.1 D, RDW Std Deviation 43.9, RDW Coeff of Dano 13.2, Plt Count 80 L, MPV 13.6 H, Immature Gran % (Auto) 2.500 H, Neut % (Auto) 88.7 H, Lymph % (Auto) 2.2 L, [place] % (Auto) 6.5, Eos % (Auto) 0.0, Baso % (Auto) 0.1, Absolute Neuts (auto) 13.2 H, Absolute Lymphs (auto) 0.33 L, Nucleated RBC % 0 08/26/20 03:03: Sodium 130 L, Potassium 3.9, Chloride 94 L, Carbon Dioxide 27.0, Anion Gap 9, BUN 62 H, Creatinine 4.26 H, Estim Creat Clear Calc 15.47, Est GFR (MDRD) Af Amer 18 L, Est GFR (MDRD) Non-Af 15 L, BUN/Creatinine Ratio 14.6, Glucose 653 H*, Calcium 7.7 L, Total Bilirubin 0.50, AST 8 L, ALT 122 H, Alkaline Phosphatase 89, Total Protein 4.1 L, Albumin 1.9 L, Globulin 2.2, Albumin/Globulin Ratio 0.9, Triglycerides 40, Cholesterol 62, LDL Cholesterol 14, VLDL Cholesterol 8, HDL Cholesterol 40, TSH 0.20 L, Free T4 1.00 08/26/20 05:15: Glucose 520 H* 08/26/20 06:55: Sodium 133 L, Potassium 3.9, Chloride 98, Carbon Dioxide 25.0, Anion Gap 10, BUN 57 H, Creatinine 3.93 H, Estim Creat Clear Calc 16.77, Est GFR (MDRD) Af Amer 19 L, Est GFR (MDRD) Non-Af 16 L, BUN/Creatinine Ratio 14.5, Glucose 439 H, Calcium 7.5 L 08/26/20 09:06: POC Glucose 403 H 08/26/20 11:06: POC Glucose 383 H 08/26/20 12:51: POC Glucose 363 H Current Medications Acetaminophen (Acetaminophen 325 Mg Tablet) 650 mg PO Q6H PRN PRN PRN Reason: Pain 1-10 or Fever Last Admin: 08/26/20 09:58 Dose: 650 mg Documented by: Albuterol Sulfate (Albuterol 2.5 Mg/3 Ml Vial.Neb.) 2.5 mg INHALATION Q2H PRN PRN PRN Reason: Dyspnea, wheezing Amiodarone HCl (Amiodarone 200 Mg Tablet) 200 mg PO DAILY [facility] Last Admin: 08/26/20 08:56 Dose: 200 mg Documented by: Aspirin (Aspirin 81 Mg Tab.Chew) 81 mg PO DAILY@0800 [facility] Last Admin: 08/26/20 08:56 Dose: 81 mg Documented by: Dextrose (Dextrose 50%-Water 25 Gm/50 Ml Disp.Syrin) 0 gm IV X1 PRN; Protocol PRN Reason: Hypoglycemia Protocol Hydralazine HCl (Hydralazine 20 Mg/Ml Vial) 10 mg IV Q4H PRN PRN PRN Reason: SBP > 160 Insulin Human Lispro 100 unit/ (Sodium Chloride) 100 mls @ 8.93 mls/hr CONT INF .[id number] [facility]; Protocol Last Infusion: 08/26/20 11:09 Dose: 0.01 units/kg/hr, 1.1 mls/hr Documented by: Sodium Chloride () 1,000 mls @ 100 mls/hr IV .Q10H [facility] Last Infusion: 08/26/20 11:46 Dose: 100 mls/hr Documented by: Sodium Chloride () 250 mls @ 15 mls/hr IV .[id number] PRN PRN Reason: Saline Flush Sodium Chloride () 250 mls @ 15 mls/hr IV .[id number] PRN PRN Reason: Additional IVPB Infusion Labetalol HCl (Labetalol (Prefilled) 20 Mg/4 Ml) 20 mg IV X1 PRN PRN Reason: BLOOD PRESSURE Labetalol HCl (Labetalol (Prefilled) 20 Mg/4 Ml) 10 - 20 mg IV Q10M PRN PRN PRN Reason: to Maintain BP Goals Pantoprazole Sodium (Pantoprazole Sodium 40 Mg Tablet) 40 mg PO DAILY [facility] Last Admin: 08/26/20 08:57 Dose: 40 mg Documented by: Pravastatin Sodium (Pravastatin 20 Mg Tablet) 20 mg PO QHS [facility] Last Admin: 08/25/20 23:29 Dose: 20 mg Documented by: Prednisone ([facility] Mg Tablet) [facility] Last Admin: 08/26/20 08:56 Dose: 60 mg Documented by: Sodium Chloride (0.9% Saline Lock 10 Ml Syringe) 10 - 40 ml IV UD PRN PRN Reason: SALINE FLUSH Last Admin: 08/26/20 09:00 Dose: 20 ml Documented by: Tamsulosin HCl (Tamsulosin Hcl 0.4 Mg Capsule) 0.4 mg PO DAILY [facility] Last Admin: 08/26/20 08:56 Dose: 0.4 mg Documented by: STROKE Vital Signs/Narrative: Vital Signs Temp Pulse Resp BP BP Pulse Ox 08/26/20 12:00 36.1 C L 54 L 14 125/63 H 100 08/26/20 11:00 52 L 14 126/64 H 98 08/26/20 10:00 60 17 135/72 H 100 Medical Necessity - Tobacco Use Smoking Status: Never smoker Tobacco Use: Non-smoker Assessment/Plan All Active Problems (Last Updated 08/12/20 @ 11:[address] Chelsie Cárdenas MD) Expressive aphasia (Acute) Hyperosmolar hyperglycemic state (HHS) (Acute) Dysphasia (Acute) Acute renal injury (Acute) Monoclonal gammopathy (Acute) 1. HHS: exacerbated by steroids. A1c 8.8% on 08/25. Currently on insulin gtt. Eventually transition to basal and prandial insulin. 2. AIN: on steroids. creatinine steadily improving. nephrology on consult. HD on hold for now 3. Speech change: likely 2/2 metabolic encephalopathy. ENT did fiberoptic laryngoscopy that was unremarkable 4. metabolic encephalopathy: 2/2 HHS. resolved. 5. anemia: down. monitor. 6. VTE prophylaxis: SCDs. 7. Disposition: anticipated DC in 1-2 days. Inpatient E&M: 48480 Subs Hosp L2
[2020-08-26 15:11] LABS: Bedside Glucose 304 mg/dL (70-110)
--- NOTE | 2020-08-26 15:32 | CASEMGMT ---
[facility] CM Readmission Note Previous Admission: 08/05/20-08/16/20 Diagnosis: JAKOB DC Disposition: Home with outpt dialysis resumed Current Admission Diagnosis: R/O CVA, HHS exacerbated by steroids The patient presented with expressive aphasia, hyperglycemia, laryngeal spasms. CVA ruled out and ENT was called to evaluate patient. Laryngoscopy was WNL. Plan is to return home and resume outpt dialysis. Pt has equipment @ home. Pt declined HHC past discharge. PT/OT ordered- will follow and assist with dc planning. Ibrhaima CASEYN RN ACM
[2020-08-26 17:01] LABS: Bedside Glucose 293 mg/dL (70-110)
[2020-08-26] MEDS: Insulin Lispro 100 UNIT/ML INSULN.PEN SC ×2 (17:08→21:23)
[2020-08-26] MEDS: Pravastatin 20 MG Tablet PO (21:24)
[2020-08-26 22:01] LABS: Bedside Glucose 381 mg/dL (70-110)
[2020-08-27] VITALS (20 sets, daily range): BP systolic 101–132; BP diastolic 60–99; PULSE 88–113; RESP 12–25; TEMP 36.3–37; O2SAT 94–100
[2020-08-27] MEDS: Insulin Lispro 100 UNIT/ML INSULN.PEN SC ×6 (01:36→18:06)
[2020-08-27 01:41] LABS: Bedside Glucose 315 mg/dL (70-110)
[2020-08-27 04:53] LABS: Absolute Lymphocyte Count 0.69 X10^3/uL (0.83-4.51); Absolute Neutrophil Count 14.5 X10^3/uL (2.0-7.7); Basophil# 0.01 X10^3/uL; Basophil% 0.1 % (0-1); Eosinophil# 0.01 X10^3/uL; Eosinophils% 0.1 % (0-5); Hematocrit 22.4 % (40-54); Hemoglobin 7.9 g/dL (13.0-16.5); Lymphocyte # 0.69 X10^3/ul (4.0); Lymphocyte % 4.1 % (19-41); Mean Corp Hgb Conc 35.3 g/dL (32-36); Mean Corpuscular Volume 90.7 fL (80-94); Mean Platelet Vol. 13.8 fl (6.2-12.0); Monocyte# 1.37 X10^3/uL; Monocyte% 8.1 % (0-10); NRBC Flagged by Analyzer 0 % (0-5); Neutrophil # 14.51 X10^3/uL (2.7-7.7); Neutrophil % 85.7 % (47-70); POSITIVE COUNT YES; Platelet Count 90 K/mm3 (150-450); RBC Distribution Width CV 13.4 % (11.6-14.6); RBC Distribution Width SD 43.9 fl (35.1-43.9); Red Blood Count 2.47 M/mm3 (4.6-6.2); White Blood Count 16.9 K/mm3 (4.4-11.0)
[2020-08-27 05:06] LABS: Anion Gap 10 (5-15); BUN 63 mg/dL (7-18); BUN/Creat Ratio 15.4 RATIO (10-20); Calcium,Total 7.4 mg/dL (8.5-10.1); Chloride 103 mmol/L (98-107); EST Glomerular Filtration Rate 15 mL/min (>60); Est Glom Filt Rate - Afr Amer 18 mL/min (>60); Estimated Creatinine Clearance 16.07 ml/min; Glucose 251 mg/dL (74-106); Potassium 3.8 mmol/L (3.5-5.1); Sodium Level 138 mmol/L (136-145)
--- NOTE | 2020-08-27 06:27 | PN_ITS ---
Subjective: Patient did okay overnight. Patient's blood sugars have been well controlled on current regimen and patient was able to tolerate p.o. diet for dinner. Patient has remained on IV fluids and blood pressures have been acceptable. Unfortunately, patient did develop A. fib overnight and feels subjectively drained as a result. Patient is not reporting any recurrence of vocal issues described on presentation. No new focal neurologic deficits have been reported by the patient or nursing staff. Objective: Telemetry is showing A. fib General: Alert, Oriented x3, Cooperative, No apparent distress, Well developed, Well nourished, - - No conversational dyspnea HEENT: Atraumatic, PERRLA, EOMI, Normocephalic, - - No scleral icterus or injection noted Oral: Moist Mucosa, No Gingival or Mucosal Lesions/ Ulcerations Neck: Supple, No JVD, No Nodes, Trachea Midline Lungs: Clear to auscultation, Normal air movement, No rhonchi, No wheeze, No rales, - - Symmetric expansion. No dullness to percussion Cardiovascular: Normal S1, Normal S2, No murmurs, Irregular Rate, No rub noted, No Gallop, Tachycardic Abdomen: Bowel Sounds Present, Soft, Non Tender, Non-Distended Extremities: No clubbing, No cyanosis, No edema Skin: No rashes, No breakdown Musculoskeletal: No Tenderness to Palpation of Joints or Extremities Lymphatic: No Cervical, Supraclavicular, or Inguinal Adenopathy Neurological: Cranial nerves II-XII grossly intact, Neuro grossly intact, Motor Exam 5/5 strength throughout Psych/Mental Status: Alert and oriented to time, place, person, mood and affect Vital Signs Temp Pulse Resp BP Pulse Ox 36.4 C L 99 25 H 130/80 H 95 08/27/20 04:00 08/27/20 06:00 08/27/20 06:00 08/27/20 06:00 08/27/20 06:00 Oxygen Delivery Method Room Air Weight: 81.478 kg Body Mass Index (BMI) 25.2 Finger Stick Blood Glucose 304 Intake and Output for Last 24 Hours 08/25/20 08/26/20 08/27/20 23:59 23:59 23:59 Intake Total 1025.07 / 1175.07 4163.11 / 4163.11 1000 / 1000 Output Total 300 / 300 1400 / 1400 800 / 800 Balance 725.07 / 875.07 2763.11 / 2763.11 200 / 200 Labs (Last 48 Hours) 08/25/20 08/25/20 08/25/20 19:10 19:10 19:10 WBC 20.5 H RBC 3.04 L Hgb 9.5 L Hct 30.1 L MCV 99.0 H MCH 31.3 MCHC 31.6 L RDW Std Deviation 53.4 H RDW Coeff of Dano 14.7 H Plt Count 104 L MPV 12.8 H Immature Gran % (Auto) 3.200 H Neut % (Auto) 89.0 H Lymph % (Auto) 1.9 L [place] % (Auto) 5.8 Eos % (Auto) 0.0 Baso % (Auto) 0.1 Absolute Neuts (auto) 18.2 H Absolute Lymphs (auto) 0.38 L Nucleated RBC % 0 Differential Comment SCANNED Platelet Estimate SLT DEC Anisocytosis 1+ Schistocytes RARE PT 14.4 INR 1.2 APTT 22.6 L Sodium 124 L Potassium 4.3 Chloride 86 L Carbon Dioxide 26.0 Anion Gap 12 BUN 60 H Creatinine 4.40 H Estim Creat Clear Calc 14.98 Est GFR (MDRD) Af Amer 17 L Est GFR (MDRD) Non-Af 14 L BUN/Creatinine Ratio 13.6 Glucose 1120 H* Hemoglobin A1c Serum Osmolality Calcium 8.0 L Phosphorus Magnesium Total Bilirubin AST ALT Alkaline Phosphatase Troponin I < 0.015 Total Protein Albumin Globulin Albumin/Globulin Ratio Triglycerides Cholesterol LDL Cholesterol VLDL Cholesterol HDL Cholesterol TSH Free T4 POC Glucose 08/25/20 08/25/20 08/25/20 19:10 19:10 19:10 WBC RBC Hgb Hct MCV MCH MCHC RDW Std Deviation RDW Coeff of [place] Plt Count MPV Immature Gran % (Auto) Neut % (Auto) Lymph % (Auto) [place] % (Auto) Eos % (Auto) Baso % (Auto) Absolute Neuts (auto) Absolute Lymphs (auto) Nucleated RBC % Differential Comment Platelet Estimate Anisocytosis Schistocytes PT INR APTT Sodium Potassium Chloride Carbon Dioxide Anion Gap BUN Creatinine Estim Creat Clear Calc Est GFR (MDRD) Af Amer Est GFR (MDRD) Non-Af BUN/Creatinine Ratio Glucose Hemoglobin A1c 8.8 H Serum Osmolality 346 H Calcium Phosphorus 4.9 Magnesium 1.7 Total Bilirubin AST ALT Alkaline Phosphatase Troponin I Total Protein Albumin Globulin Albumin/Globulin Ratio Triglycerides Cholesterol LDL Cholesterol VLDL Cholesterol HDL Cholesterol TSH Free T4 POC Glucose 08/25/20 08/25/20 08/25/20 19:17 21:54 22:00 WBC RBC Hgb Hct MCV MCH MCHC RDW Std Deviation RDW Coeff of [place] Plt Count MPV Immature Gran % (Auto) Neut % (Auto) Lymph % (Auto) [place] % (Auto) Eos % (Auto) Baso % (Auto) Absolute Neuts (auto) Absolute Lymphs (auto) Nucleated RBC % Differential Comment Platelet Estimate Anisocytosis Schistocytes PT INR APTT Sodium Potassium Chloride Carbon Dioxide Anion Gap BUN Creatinine Estim Creat Clear Calc Est GFR (MDRD) Af Amer Est GFR (MDRD) Non-Af BUN/Creatinine Ratio Glucose 1062 H* Hemoglobin A1c Serum Osmolality Calcium Phosphorus Magnesium Total Bilirubin AST ALT Alkaline Phosphatase Troponin I Total Protein Albumin Globulin Albumin/Globulin Ratio Triglycerides Cholesterol LDL Cholesterol VLDL Cholesterol HDL Cholesterol TSH Free T4 POC Glucose > 500 H* > 500 H* 08/25/20 08/25/20 08/25/20 23:00 23:08 23:20 WBC RBC Hgb Hct MCV MCH MCHC RDW Std Deviation RDW Coeff of [place] Plt Count MPV Immature Gran % (Auto) Neut % (Auto) Lymph % (Auto) [place] % (Auto) Eos % (Auto) Baso % (Auto) Absolute Neuts (auto) Absolute Lymphs (auto) Nucleated RBC % Differential Comment Platelet Estimate Anisocytosis Schistocytes PT INR APTT Sodium 127 L Potassium 4.0 Chloride 91 L Carbon Dioxide 25.0 Anion Gap 11 BUN 61 H Creatinine 4.36 H Estim Creat Clear Calc 15.12 Est GFR (MDRD) Af Amer 17 L Est GFR (MDRD) Non-Af 14 L BUN/Creatinine Ratio 14.0 Glucose 940 H* Hemoglobin A1c Serum Osmolality Calcium 7.8 L Phosphorus Magnesium Total Bilirubin AST ALT Alkaline Phosphatase Troponin I 0.018 Total Protein Albumin Globulin Albumin/Globulin Ratio Triglycerides Cholesterol LDL Cholesterol VLDL Cholesterol HDL Cholesterol TSH Free T4 POC Glucose > 500 H* 08/26/20 08/26/20 08/26/20 00:59 00:59 03:03 WBC 14.8 H RBC 2.50 L Hgb 7.7 L Hct 22.6 L MCV 90.4 D MCH 30.8 MCHC 34.1 D RDW Std Deviation 43.9 RDW Coeff of [place]ano 13.2 Plt Count 80 L MPV 13.6 H Immature Gran % (Auto) 2.500 H Neut % (Auto) 88.7 H Lymph % (Auto) 2.2 L [place] % (Auto) 6.5 Eos % (Auto) 0.0 Baso % (Auto) 0.1 Absolute Neuts (auto) 13.2 H Absolute Lymphs (auto) 0.33 L Nucleated RBC % 0 Differential Comment Platelet Estimate Anisocytosis Schistocytes PT INR APTT Sodium Potassium Chloride Carbon Dioxide Anion Gap BUN Creatinine Estim Creat Clear Calc Est GFR (MDRD) Af Amer Est GFR (MDRD) Non-Af BUN/Creatinine Ratio Glucose 730 H* Hemoglobin A1c Serum Osmolality Calcium Phosphorus Magnesium Total Bilirubin AST ALT Alkaline Phosphatase Troponin I 0.019 Total Protein Albumin Globulin Albumin/Globulin Ratio Triglycerides Cholesterol LDL Cholesterol VLDL Cholesterol HDL Cholesterol TSH Free T4 POC Glucose 08/26/20 08/26/20 08/26/20 03:03 05:15 06:55 WBC RBC Hgb Hct MCV MCH MCHC RDW Std Deviation RDW Coeff of [place] Plt Count MPV Immature Gran % (Auto) Neut % (Auto) Lymph % (Auto) [place] % (Auto) Eos % (Auto) Baso % (Auto) Absolute Neuts (auto) Absolute Lymphs (auto) Nucleated RBC % Differential Comment Platelet Estimate Anisocytosis Schistocytes PT INR APTT Sodium 130 L 133 L Potassium 3.9 3.9 Chloride 94 L 98 Carbon Dioxide 27.0 25.0 Anion Gap 9 10 BUN 62 H 57 H Creatinine 4.26 H 3.93 H Estim Creat Clear Calc 15.47 16.77 Est GFR (MDRD) Af Amer 18 L 19 L Est GFR (MDRD) Non-Af 15 L 16 L BUN/Creatinine Ratio 14.6 14.5 Glucose 653 H* 520 H* 439 H Hemoglobin A1c Serum Osmolality Calcium 7.7 L 7.5 L Phosphorus Magnesium Total Bilirubin 0.50 AST 8 L ALT 122 H Alkaline Phosphatase 89 Troponin I Total Protein 4.1 L Albumin 1.9 L Globulin 2.2 Albumin/Globulin Ratio 0.9 Triglycerides 40 Cholesterol 62 LDL Cholesterol 14 VLDL Cholesterol 8 HDL Cholesterol 40 TSH 0.20 L Free T4 1.00 POC Glucose 08/26/20 08/26/20 08/26/20 09:06 11:06 12:51 WBC RBC Hgb Hct MCV MCH MCHC RDW Std Deviation RDW Coeff of [place]ano Plt Count MPV Immature Gran % (Auto) Neut % (Auto) Lymph % (Auto) [place] % (Auto) Eos % (Auto) Baso % (Auto) Absolute Neuts (auto) Absolute Lymphs (auto) Nucleated RBC % Differential Comment Platelet Estimate Anisocytosis Schistocytes PT INR APTT Sodium Potassium Chloride Carbon Dioxide Anion Gap BUN Creatinine Estim Creat Clear Calc Est GFR (MDRD) Af Amer Est GFR (MDRD) Non-Af BUN/Creatinine Ratio Glucose Hemoglobin A1c Serum Osmolality Calcium Phosphorus Magnesium Total Bilirubin AST ALT Alkaline Phosphatase Troponin I Total Protein Albumin Globulin Albumin/Globulin Ratio Triglycerides Cholesterol LDL Cholesterol VLDL Cholesterol HDL Cholesterol TSH Free T4 POC Glucose 403 H 383 H 363 H 08/26/20 08/26/20 08/26/20 15:05 16:52 21:21 WBC RBC Hgb Hct MCV MCH MCHC RDW Std Deviation RDW Coeff of [place]ano Plt Count MPV Immature Gran % (Auto) Neut % (Auto) Lymph % (Auto) [place] % (Auto) Eos % (Auto) Baso % (Auto) Absolute Neuts (auto) Absolute Lymphs (auto) Nucleated RBC % Differential Comment Platelet Estimate Anisocytosis Schistocytes PT INR APTT Sodium Potassium Chloride Carbon Dioxide Anion Gap BUN Creatinine Estim Creat Clear Calc Est GFR (MDRD) Af Amer Est GFR (MDRD) Non-Af BUN/Creatinine Ratio Glucose Hemoglobin A1c Serum Osmolality Calcium Phosphorus Magnesium Total Bilirubin AST ALT Alkaline Phosphatase Troponin I Total Protein Albumin Globulin Albumin/Globulin Ratio Triglycerides Cholesterol LDL Cholesterol VLDL Cholesterol HDL Cholesterol TSH Free T4 POC Glucose 304 H 293 H 381 H 08/27/20 08/27/20 08/27/20 01:35 04:45 04:45 WBC 16.9 H RBC 2.47 L Hgb 7.9 L Hct 22.4 L MCV 90.7 MCH 32.0 MCHC 35.3 RDW Std Deviation 43.9 RDW Coeff of [place] 13.4 Plt Count 90 L MPV 13.8 H Immature Gran % (Auto) 1.900 H Neut % (Auto) 85.7 H Lymph % (Auto) 4.1 L [place] % (Auto) 8.1 Eos % (Auto) 0.1 Baso % (Auto) 0.1 Absolute Neuts (auto) 14.5 H Absolute Lymphs (auto) 0.69 L Nucleated RBC % 0 Differential Comment Platelet Estimate Anisocytosis Schistocytes PT INR APTT Sodium 138 Potassium 3.8 Chloride 103 Carbon Dioxide 25.0 Anion Gap 10 BUN 63 H Creatinine 4.10 H Estim Creat Clear Calc 16.07 Est GFR (MDRD) Af Amer 18 L Est GFR (MDRD) Non-Af 15 L BUN/Creatinine Ratio 15.4 Glucose 251 H Hemoglobin A1c Serum Osmolality Calcium 7.4 L Phosphorus Magnesium Total Bilirubin AST ALT Alkaline Phosphatase Troponin I Total Protein Albumin Globulin Albumin/Globulin Ratio Triglycerides Cholesterol LDL Cholesterol VLDL Cholesterol HDL Cholesterol TSH Free T4 POC Glucose 315 H Medical Necessity - Tobacco Use Smoking Status: Never smoker Tobacco Use: Non-smoker Assessment/Plan All Active Problems (Last Updated 08/12/20 @ 11:[address] Chelsie Cárdenas MD) Expressive aphasia (Acute) Hyperosmolar hyperglycemic state (HHS) (Acute) Dysphasia (Acute) Acute renal injury (Acute) Monoclonal gammopathy (Acute) RECOMMENDATIONS: 1. Initiate Lantus with sliding scale 2. Diabetic teaching 3. Discontinue IV fluids 4. Hold on transfusions for now 5. Okay to leave the intensive care unit from my perspective 6. Replace hearing aids to avoid delirium 7. Hemodynamically stable on room air. Will sign off from a critical care/pulmonary perspective IMPRESSIONS: 1. Intermittent expressive aphasia This appears to be secondary to hyperglycemia. ENT evaluation was unremarkable. Patient has not had any recurrence of expressive aphasia/dysphonia since blood sugars have been normalized. We will continue to monitor clinically. 2. Diabetes mellitus type 2 with HHS secondary to steroids Patient not checking blood sugars at home leading to a glucose of over 1100. This may have led to problem #1. Patient will likely need to continue on steroids secondary to renal function. Patient will be placed on Lantus and sliding scale. This may need to be titrated this patient takes more p.o. 3. Acute kidney injury on CKD stage II secondary to acute interstitial nephritis Recent exacerbation likely secondary to decreased volume associated with problem #2. We will hold on hydration given renal function. Defer to nephrology on dialysis. 4. Acute anemia and thrombocytopenia Clinical suspicion for elements of renal dysfunction leading to current findings. Patient appears to be responding well to therapy. Recent bone marrow was not suggestive of a functional abnormality. Hold on anticoagulation for now. No indications for transfusion from my perspective 5. CAD/hypertension/hyperlipidemia/GERD/BPH/advanced age/hard of hearing/A. fib with RVR Complicates care, management, recovery and prognosis. Likely okay to continue with baseline medications. Patient should have hearing aids put in place to avoid complications with delirium. Patient does appear to be symptomatic related to his A. fib. Defer to hospitalist. Patient may require cardioversion chemically or electrically given his contraindications to anticoagulation. Inpatient E&M: 66374 Subs Hosp L3
[2020-08-27 08:26] LABS: Bedside Glucose 230 mg/dL (70-110)
[2020-08-27] MEDS: Amiodarone 200 MG Tablet PO (08:40)
[2020-08-27] MEDS: predniSONE 20 MG Tablet 60 MG PO (08:40)
[2020-08-27] MEDS: Pantoprazole Sodium 40 MG Tablet PO (08:40)
[2020-08-27] MEDS: Aspirin 81 MG TAB.CHEW PO (08:40)
[2020-08-27] MEDS: Tamsulosin HCl 0.4 MG Capsule PO (08:41)
[2020-08-27] MEDS: Metoprolol Tartrate 50 MG Tablet PO ×2 (08:47→21:02)
--- NOTE | 2020-08-27 10:59 | CASEMGMT ---
SW informed by operations support representative pt may benefit from speaking w/SW in regard to his health issues. SW met w/pt in room. Pt does explain is having a difficult time, he doesn't feel how he would like to feel. Pt states his health issues and not being able to do what he used to do, and being more weak than in the past is difficult. Pt also is on prednisone and it's affecting his blood sugars, as per pt, so now he needs to take insulin. Pt does feel he can learn how to manage this. Additionally, his is currently in treatment for cancer getting chemo every two weeks. Pt does report having two children who are local but due to the pandemic he does not see them much. He states he is trying to get the vaccine but nothing has come through yet. We talked about medication, pt states has been on antidepressants before but he did not like the way the medications made him feel. We also discussed counseling. Pt states he talks with his children and with a friend, and this helps. Pt not able to name anything to give him hope going forward. Pt then got a phone call from his , SW returned a short time later. Pt now able to state that he will keep going forward, and now stating is hopeful that things will get better. We talked about pt needing to be on steroids for possibly a month, and that once he is off steroids he will likely not need insulin any more. He also states if he starts feeling better and can start doing more again, he will feel better mentally. SW spoke w/pt about home health at discharge to continue with teaching in regard to the insulin. Pt states he would only want this if it was really needed. SW also spoke w/pt about palliative care, explained the program and they could also help w/support. Pt states he isn't down the hole yet, but if he starts feeling that way, he may consider it. Pt thanked SW for speaking w/him. [facility] remains available to offer support to pt. POLO Steward
[2020-08-27 12:16] LABS: Bedside Glucose 233 mg/dL (70-110)
--- NOTE | 2020-08-27 12:25 | PCM.PN.HOSP ---
Patient Problems: Active and Suspected Problems (Last Updated 08/12/20 @ 11:[address] Chelsie Cárdenas MD) Expressive aphasia (Acute) Hyperosmolar hyperglycemic state (HHS) (Acute) Dysphasia (Acute) Acute renal injury (Acute) Monoclonal gammopathy (Acute) Subjective: Feels well. +Palpitations. Vitals/I&O's: Vital Signs Temp Pulse Resp BP Pulse Ox 36.3 C L 113 H 18 132/99 H 100 08/27/20 09:30 08/27/20 09:30 08/27/20 09:30 08/27/20 09:30 08/27/20 09:30 Oxygen Delivery Method Room Air Weight: 81.478 kg Body Mass Index (BMI) 25.2 Finger Stick Blood Glucose 304 Intake and Output for Last 24 Hours 08/25/20 08/26/20 08/27/20 23:59 23:59 23:59 Intake Total 1025.07 / 1175.07 4163.11 / 4163.11 1000 / 1000 Output Total 300 / 300 1400 / 1400 800 / 800 Balance 725.07 / 875.07 2763.11 / 2763.11 200 / 200 General: Alert, No apparent distress HEENT: Atraumatic, Normocephalic Oral: Moist Mucosa, No Gingival or Mucosal Lesions/ Ulcerations Neck: No Nodes, Thyroid Normal Size and Texture Lungs: Clear to auscultation, Normal air movement, No rhonchi, No wheeze, No rales Cardiovascular: Irregular Rate, Tachycardic Abdomen: Bowel Sounds Present, Soft, Non Tender, Non-Distended, No Hepato-splenomegaly Extremities: No edema, No Calf Tenderness Laboratory Results 08/26/20 12:51: POC Glucose 363 H 08/26/20 15:05: POC Glucose 304 H 08/26/20 16:52: POC Glucose 293 H 08/26/20 21:21: POC Glucose 381 H 08/27/20 01:35: POC Glucose 315 H 08/27/20 04:45: WBC 16.9 H, RBC 2.47 L, Hgb 7.9 L, Hct 22.4 L, MCV 90.7, MCH 32.0, MCHC 35.3, RDW Std Deviation 43.9, RDW Coeff of Dano 13.4, Plt Count 90 L, MPV 13.8 H, Immature Gran % (Auto) 1.900 H, Neut % (Auto) 85.7 H, Lymph % (Auto) 4.1 L, [place] % (Auto) 8.1, Eos % (Auto) 0.1, Baso % (Auto) 0.1, Absolute Neuts (auto) 14.5 H, Absolute Lymphs (auto) 0.69 L, Nucleated RBC % 0 08/27/20 04:45: Sodium 138, Potassium 3.8, Chloride 103, Carbon Dioxide 25.0, Anion Gap 10, BUN 63 H, Creatinine 4.10 H, Estim Creat Clear Calc 16.07, Est GFR (MDRD) Af Amer 18 L, Est GFR (MDRD) Non-Af 15 L, BUN/Creatinine Ratio 15.4, Glucose 251 H, Calcium 7.4 L 08/27/20 08:22: POC Glucose 230 H 08/27/20 12:10: POC Glucose 233 H Current Medications Acetaminophen (Acetaminophen 325 Mg Tablet) 650 mg PO Q6H PRN PRN PRN Reason: Pain 1-10 or Fever Last Admin: 08/26/20 09:58 Dose: 650 mg Documented by: Albuterol Sulfate (Albuterol 2.5 Mg/3 Ml Vial.Neb.) 2.5 mg INHALATION Q2H PRN PRN PRN Reason: Dyspnea, wheezing Amiodarone HCl (Amiodarone 200 Mg Tablet) 200 mg PO DAILY [facility] Last Admin: 08/27/20 08:40 Dose: 200 mg Documented by: Aspirin (Aspirin 81 Mg Tab.Chew) 81 mg PO DAILY@0800 [facility] Last Admin: 08/27/20 08:40 Dose: 81 mg Documented by: Dextrose (Dextrose 50%-Water 25 Gm/50 Ml Disp.Syrin) 0 gm IV X1 PRN; Protocol PRN Reason: Hypoglycemia Protocol Hydralazine HCl (Hydralazine 20 Mg/Ml Vial) 10 mg IV Q4H PRN PRN PRN Reason: SBP > 160 Sodium Chloride () 250 mls @ 15 mls/hr IV .[id number] PRN PRN Reason: Saline Flush Sodium Chloride () 250 mls @ 15 mls/hr IV .[id number] PRN PRN Reason: Additional IVPB Infusion Insulin Glargine (Insulin Glargine 100 Units/Ml Pen) 20 units SC DAILY [facility] Last Admin: 08/27/20 08:50 Dose: 20 u Documented by: Insulin Human Lispro (Insulin Lispro 100 Unit/Ml Insuln.Pen) 5 unit SC TIDAC [facility] Last Admin: 08/27/20 12:10 Dose: 5 u Documented by: Insulin Human Lispro (Insulin Lispro 100 Unit/Ml Insuln.Pen) 0 unit SC TIDAC [facility]; Protocol Last Admin: 08/27/20 12:11 Dose: 2 u Documented by: Labetalol HCl (Labetalol (Prefilled) 20 Mg/4 Ml) 20 mg IV X1 PRN PRN Reason: BLOOD PRESSURE Labetalol HCl (Labetalol (Prefilled) 20 Mg/4 Ml) 10 - 20 mg IV Q10M PRN PRN PRN Reason: to Maintain BP Goals Metoprolol Tartrate (Metoprolol Tartrate 50 Mg Tablet) 50 mg PO BID [facility] Last Admin: 08/27/20 08:47 Dose: 50 mg Documented by: Pantoprazole Sodium (Pantoprazole Sodium 40 Mg Tablet) 40 mg PO DAILY [facility] Last Admin: 08/27/20 08:40 Dose: 40 mg Documented by: Pravastatin Sodium (Pravastatin 20 Mg Tablet) 20 mg PO QHS [facility] Last Admin: 08/26/20 21:24 Dose: 20 mg Documented by: Prednisone ([facility] 20 Mg Tablet) [facility] Last Admin: 08/27/20 08:40 Dose: 60 mg Documented by: Sodium Chloride (0.9% Saline Lock 10 Ml Syringe) 10 - 40 ml IV UD PRN PRN Reason: SALINE FLUSH Last Admin: 08/26/20 09:00 Dose: 20 ml Documented by: Tamsulosin HCl (Tamsulosin Hcl 0.4 Mg Capsule) 0.4 mg PO DAILY [facility] Last Admin: 08/27/20 08:41 Dose: 0.4 mg Documented by: STROKE Vital Signs/Narrative: Vital Signs Temp Pulse Resp BP Pulse Ox 08/27/20 09:30 36.3 C L 113 H 18 132/99 H 100 08/27/20 08:47 105 H Medical Necessity - Tobacco Use Smoking Status: Never smoker Tobacco Use: Non-smoker Assessment/Plan All Active Problems (Last Updated 08/12/20 @ 11:[address] Chelsie Cárdenas MD) Expressive aphasia (Acute) Hyperosmolar hyperglycemic state (HHS) (Acute) Dysphasia (Acute) Acute renal injury (Acute) Monoclonal gammopathy (Acute) 1. HHS: exacerbated by steroids. A1c 8.8% on 08/25. Off insulin gtt. Continue basal insulin 20 and prandial 5. 2. AIN: on steroids. creatinine steadily improving. nephrology on consult. HD on hold for now 3. Speech change: likely 2/2 metabolic encephalopathy. ENT did fiberoptic laryngoscopy that was unremarkable 4. metabolic encephalopathy: 2/2 HHS. resolved. 5. anemia: down. monitor. 6. afib: resume metoprolol. no anticoagulation until sees Dr. Mckeon as outpt. 7. VTE prophylaxis: SCDs. Inpatient E&M: [id number] Subs Hosp L2
--- NOTE | 2020-08-27 12:37 | PN.RENAL_ITS ---
Patient Problems: Active and Suspected Problems (Last Updated 08/12/20 @ 11:[address] Chelsie Cárdenas MD) Expressive aphasia (Acute) Hyperosmolar hyperglycemic state (HHS) (Acute) Dysphasia (Acute) Acute renal injury (Acute) Monoclonal gammopathy (Acute) Subjective: no new complaints - Physical Exam Vitals/I&O's: Vital Signs Temp Pulse Resp BP Pulse Ox 97.3 F L 113 H 18 132/99 H 100 08/27/20 09:30 08/27/20 09:30 08/27/20 09:30 08/27/20 09:30 08/27/20 09:30 Oxygen Delivery Method Room Air Weight: 81.478 kg Body Mass Index (BMI) 25.2 Finger Stick Blood Glucose 304 Intake and Output for Last 24 Hours 08/25/20 08/26/20 08/27/20 23:59 23:59 23:59 Intake Total 1025.07 / 1175.07 4163.11 / 4163.11 1000 / 1000 Output Total 300 / 300 1400 / 1400 800 / 800 Balance 725.07 / 875.07 2763.11 / 2763.11 200 / 200 General: Alert, Oriented x3, Cooperative HEENT: Atraumatic, PERRLA, EOMI, Normocephalic Neck: Supple, No JVD, Negative Carotid Bruits Lungs: Clear to auscultation, Normal air movement Cardiovascular: Regular rate, No murmurs Abdomen: Bowel Sounds Present, Soft, Non Tender Extremities: No edema, Capillary Refill Less than 3 Seconds Skin: No rashes, No breakdown Musculoskeletal: No Tenderness to Palpation of Joints or Extremities Neurological: Cranial nerves II-XII grossly intact Psych/Mental Status: Normal Affect, Appropriate Laboratory Results 08/26/20 12:51: POC Glucose 363 H 08/26/20 15:05: POC Glucose 304 H 08/26/20 16:52: POC Glucose 293 H 08/26/20 21:21: POC Glucose 381 H 08/27/20 01:35: POC Glucose 315 H 08/27/20 04:45: WBC 16.9 H, RBC 2.47 L, Hgb 7.9 L, Hct 22.4 L, MCV 90.7, MCH 32.0, MCHC 35.3, RDW Std Deviation 43.9, RDW Coeff of [place] 13.4, Plt Count 90 L, MPV 13.8 H, Immature Gran % (Auto) 1.900 H, Neut % (Auto) 85.7 H, Lymph % (Auto) 4.1 L, [place] % (Auto) 8.1, Eos % (Auto) 0.1, Baso % (Auto) 0.1, Absolute Neuts (auto) 14.5 H, Absolute Lymphs (auto) 0.69 L, Nucleated RBC % 0 08/27/20 04:45: Sodium 138, Potassium 3.8, Chloride 103, Carbon Dioxide 25.0, Anion Gap 10, BUN 63 H, Creatinine 4.10 H, Estim Creat Clear Calc 16.07, Est GFR (MDRD) Af Amer 18 L, Est GFR (MDRD) Non-Af 15 L, BUN/Creatinine Ratio 15.4, G lucose 251 H, Calcium 7.4 L 08/27/20 08:22: POC Glucose 230 H 08/27/20 12:10: POC Glucose 233 H Current Medications Acetaminophen (Acetaminophen 325 Mg Tablet) 650 mg PO Q6H PRN PRN PRN Reason: Pain 1-10 or Fever Last Admin: 08/26/20 09:58 Dose: 650 mg Documented by: Albuterol Sulfate (Albuterol 2.5 Mg/3 Ml Vial.Neb.) 2.5 mg INHALATION Q2H PRN PRN PRN Reason: Dyspnea, wheezing Amiodarone HCl (Amiodarone 200 Mg Tablet) 200 mg PO DAILY [facility] Last Admin: 08/27/20 08:40 Dose: 200 mg Documented by: Aspirin (Aspirin 81 Mg Tab.Chew) 81 mg PO DAILY@0800 [facility] Last Admin: 08/27/20 08:40 Dose: 81 mg Documented by: Dextrose (Dextrose 50%-Water 25 Gm/50 Ml Disp.Syrin) 0 gm IV X1 PRN; Protocol PRN Reason: Hypoglycemia Protocol Hydralazine HCl (Hydralazine 20 Mg/Ml Vial) 10 mg IV Q4H PRN PRN PRN Reason: SBP > 160 Sodium Chloride () 250 mls @ 15 mls/hr IV .[id number] PRN PRN Reason: Saline Flush Sodium Chloride () 250 mls @ 15 mls/hr IV .[id number] PRN PRN Reason: Additional IVPB Infusion Insulin Glargine (Insulin Glargine 100 Units/Ml Pen) 20 units SC DAILY [facility] Last Admin: 08/27/20 08:50 Dose: 20 u Documented by: Insulin Human Lispro (Insulin Lispro 100 Unit/Ml Insuln.Pen) 5 unit SC TIDAC [facility] Last Admin: 08/27/20 12:10 Dose: 5 u Documented by: Insulin Human Lispro (Insulin Lispro 100 Unit/Ml Insuln.Pen) 0 unit SC TIDAC [facility]; Protocol Last Admin: 08/27/20 12:11 Dose: 2 u Documented by: Labetalol HCl (Labetalol (Prefilled) 20 Mg/4 Ml) 20 mg IV X1 PRN PRN Reason: BLOOD PRESSURE Labetalol HCl (Labetalol (Prefilled) 20 Mg/4 Ml) 10 - 20 mg IV Q10M PRN PRN PRN Reason: to Maintain BP Goals Metoprolol Tartrate (Metoprolol Tartrate 50 Mg Tablet) 50 mg PO BID [facility] Last Admin: 08/27/20 08:47 Dose: 50 mg Documented by: Pantoprazole Sodium (Pantoprazole Sodium 40 Mg Tablet) 40 mg PO DAILY [facility] Last Admin: 08/27/20 08:40 Dose: 40 mg Documented by: Pravastatin Sodium (Pravastatin 20 Mg Tablet) 20 mg PO QHS [facility] Last Admin: 08/26/20 21:24 Dose: 20 mg Documented by: Prednisone (Pred[facility]one 20 Mg Tablet) [facility] Last Admin: 08/27/20 08:40 Dose: 60 mg Documented by: Sodium Chloride (0.9% Saline Lock 10 Ml Syringe) 10 - 40 ml IV UD PRN PRN Reason: SALINE FLUSH Last Admin: 08/26/20 09:00 Dose: 20 ml Documented by: Tamsulosin HCl (Tamsulosin Hcl 0.4 Mg Capsule) 0.4 mg PO DAILY [facility] Last Admin: 08/27/20 08:41 Dose: 0.4 mg Documented by: Medical Necessity - Tobacco Use Smoking Status: Never smoker Tobacco Use: Non-smoker Assessment/Plan All Active Problems (Last Updated 08/12/20 @ 11:[address] Chelsie Cárdenas MD) Expressive aphasia (Acute) Hyperosmolar hyperglycemic state (HHS) (Acute) Dysphasia (Acute) Acute renal injury (Acute) Monoclonal gammopathy (Acute) Acute renal failure. Recent blood work-up showed positive serum protein electrophoresis, positive JOLANTA, positive double-stranded DNA, borderline C3. We did a kidney biopsy which showed interstitial nephritis with extensive calcium oxalate deposition. Extensive dietary review, medication review did not yield any source of calcium oxalate deposition. He was empirically started on steroids. Urine output has picked up over the last few days. cr is higher than yesterday and significantly above baseline. dont think he is completely recovered yet. resume dialysis from tomorrow and continue MWF schedule. Hyperglycemia. Likely contributory factor was prednisone. taper off prednisone after 2 weeks of steroids
[2020-08-27 16:26] LABS: Bedside Glucose 126 mg/dL (70-110)
[2020-08-27] MEDS: Pravastatin 20 MG Tablet PO (21:02)
[2020-08-27 21:45] LABS: Bedside Glucose 177 mg/dL (70-110)
[2020-08-28] VITALS (15 sets, daily range): BP systolic 114–129; BP diastolic 59–83; PULSE 63–113; RESP 16–18; TEMP 36.6–36.9; O2SAT 97–100
[2020-08-28 06:26] LABS: Bedside Glucose 93 mg/dL (70-110)
[2020-08-28 07:29] LABS: Anion Gap 7 (5-15); BUN 69 mg/dL (7-18); BUN/Creat Ratio 15.4 RATIO (10-20); Calcium,Total 7.6 mg/dL (8.5-10.1); Chloride 108 mmol/L (98-107); Creatinine, Serum 4.47 mg/dL (0.70-1.30); EST Glomerular Filtration Rate 14 mL/min (>60); Est Glom Filt Rate - Afr Amer 17 mL/min (>60); Estimated Creatinine Clearance 14.74 ml/min; Glucose 90 mg/dL (74-106); Potassium 3.7 mmol/L (3.5-5.1); Sodium Level 141 mmol/L (136-145)
[2020-08-28] MEDS: Insulin Lispro 100 UNIT/ML INSULN.PEN SC ×2 (07:54→12:52)
[2020-08-28] MEDS: Metoprolol Tartrate 50 MG Tablet PO ×2 (08:05→20:14)
[2020-08-28] MEDS: Amiodarone 200 MG Tablet PO (08:06)
--- NOTE | 2020-08-28 10:48 | DCINST_ITS ---
- Discharge Diagnoses Current Active Problems: Current Active and Chronic Problems (Last Updated 08/12/20 @ 11:[address] Chelsie Cárdneas MD) Expressive aphasia (Acute) Hyperosmolar hyperglycemic state (HHS) (Acute) Thrombocytopenia (Chronic) BPH (benign prostatic hyperplasia) (Chronic) Dysphasia (Acute) Acute renal injury (Acute) Anemia (Chronic) Monoclonal gammopathy (Acute) [facility] current use of amiodarone (Chronic) Pure hypercholesterolemia (Chronic) Essential hypertension (Chronic) Atherosclerotic heart disease of [place] coronary artery without angina pectoris (Chronic) CX 20-30% prox-mid stenosis, LAD 20-30% and 10-20% anterior trunk stenosis, OM1 20-30% tapering ostial stenosis, RCA 20% prox stenosis- per cath 08/14/08; LEFT MAIN: Mild luminal irregularities; LEFT ANTERIOR DESCENDING ARTERY: PROX LAD: Mild calcification, Mild luminal irregularities, eccentric: 10 - 25 % Stenosis; MID LAD: Mild luminal irregularities; CIRCUMFLEX ARTERY: Mild luminal irregularities; RIGHT CORONARY ARTERY: PROX RCA: Mild calcification, Mild luminal irregularities, eccentric: 10 - 25 % Stenosis MID RCA: Mild luminal irregularities; AORTIC ROOT: Angiographically normal per cath 05/16/19 Paroxysmal atrial fibrillation (Chronic) Gastroesophageal reflux disease (Chronic) Diabetes mellitus, type II (Chronic) You will use the following diet at home:: Renal (restricted protein/sodium) Call your doctor if you observe: Fever of 101 or Higher, Inability to urinate, - - uncontrolled blood sugar Instructions: Using a Blood Sugar Log, Hyperglycemia (High Blood Sugar), Hypoglycemia (Low Blood Sugar), How to Check Your Blood Sugar, Using Injected Insulin, Types of Insulin, Healthy Meals for Diabetes Allergies/Adverse Reactions: Allergies scopolamine Adverse Reaction (Verified 08/25/20 19:08) HALLUCINATIONS SOME TYPE OF IV DYE FOR ULTRA BRYCE Adverse Reaction (Uncoded 08/25/20 19:08) backache Had during ultrasound of his heart Medications to take at Discharge Tamsulosin HCl [Flomax] 0.4 mg PO DAILY 01/21/16 metoprolol tartrate 50 mg tablet 50 mg PO BID 10/18/18 omega-3 fatty acids 1,000 mg capsule 1,000 mg PO DAILY@1200 cap 01/22/20 pravastatin 20 mg tablet 20 mg PO QHS #90 tab 07/10/20 Amiodarone HCl 200 mg PO DAILY 08/05/20 Pantoprazole Sodium [Protonix] 40 mg PO DAILY #30 tab 08/16/20 Prednisone 60 mg PO DAILY #180 tab.ds.pk 08/16/20 Aspirin [Aspirin, Baby] 81 mg PO DAILY@0800 tab.chew 08/28/20 Insulin Glargine [Lantus SoloStar Pen] 20 units SC DAILY #1 pen 08/28/20 Insulin Lispro [Humalog KwikPen] 5 unit SC TIDAC #1 insuln.pen 08/28/20 [place], Insulin Disposable [Novofine Autocover 30G Needle] 1 ea MISCELL. UD #1 box 08/28/20 The following prescriptions were given: Insulin Lispro [Humalog KwikPen] 5 unit SC TIDAC #1 insuln.pen Transmission Status: Pending to [facility] Insulin Glargine [Lantus SoloStar Pen] 20 units SC DAILY #1 pen Transmission Status: Pending to [facility] [place], Insulin Disposable [Novofine Autocover 30G Needle] 1 ea MISCELL. UD #1 box Transmission Status: Pending to [facility] Orders to be completed after discharge: Glucometer Location: None Selected Primary Care Physician: Guanakito Quarles MD [Primary Care Provider] - Within 2 Weeks Test Results: Test results from this visit will be discussed in further detail at your follow- up appointment, if applicable. [facility] Wednesday, Wednesday Please Follow Up With: Jonathan Crump MD When: 2-4 weeks Please Follow Up With: Blake Blas MD When: 09/04/2020, already scheduled Please Follow Up With: Blake Mckeon DO When: next scheduled appointment Proposed Discharge Date: 08/28/20
--- NOTE | 2020-08-28 10:51 | DS.PCM_ITS ---
Discharge Date and Diagnosis - Problem List Patient Problems: Active and Suspected Problems (Last Updated 08/12/20 @ 11:[address] Chelsie Cárdenas MD) Expressive aphasia (Acute) Hyperosmolar hyperglycemic state (HHS) (Acute) Dysphasia (Acute) Acute renal injury (Acute) Monoclonal gammopathy (Acute) Date of Admission: 08/25/20 Date of Discharge: 08/28/20 - Primary Discharge Diagnosis Acute Problems: Active Problems (Last Updated 08/12/20 @ 11:[address] Chelsie Cárdenas MD) 1. HHS: exacerbated by steroids. A1c 8.8% on 08/25. Off insulin gtt. Continue basal insulin 20 and prandial 5. 2. AIN: on steroids. creatinine steadily improving. nephrology on consult. continue HD for now every MWF 3. Speech change: resolved. likely 2/2 metabolic encephalopathy. ENT did fiberoptic laryngoscopy that was unremarkable 4. metabolic encephalopathy: 2/2 HHS. resolved. 5. anemia: down. monitor. 6. afib: resume metoprolol. no anticoagulation until sees Dr. Mckeon as outpt. - Secondary Discharge Diagnosis Chronic Problems: Chronic Problems (Last Updated 08/12/20 @ 11:[address] Chelsie Cárdenas MD) Thrombocytopenia (Chronic) BPH (benign prostatic hyperplasia) (Chronic) Anemia (Chronic) [facility] current use of amiodarone (Chronic) CAD in [place] artery (Chronic) Pure hypercholesterolemia (Chronic) Essential hypertension (Chronic) Atherosclerotic heart disease of [place] coronary artery without angina pectoris (Chronic) CX 20-30% prox-mid stenosis, LAD 20-30% and 10-20% anterior trunk stenosis, OM1 20-30% tapering ostial stenosis, RCA 20% prox stenosis- per cath 08/14/08; LEFT MAIN: Mild luminal irregularities; LEFT ANTERIOR DESCENDING ARTERY: PROX LAD: Mild calcification, Mild luminal irregularities, eccentric: 10 - 25 % Stenosis; MID LAD: Mild luminal irregularities; CIRCUMFLEX ARTERY: Mild luminal irregularities; RIGHT CORONARY ARTERY: PROX RCA: Mild calcification, Mild luminal irregularities, eccentric: 10 - 25 % Stenosis MID RCA: Mild luminal irregularities; AORTIC ROOT: Angiographically normal per cath 05/16/19 Paroxysmal atrial fibrillation (Chronic) Gastroesophageal reflux disease (Chronic) Diabetes mellitus, type II (Chronic) Hospital Course and Treatment Imaging Results: Clinical Impression(s) from Imaging Studies Brain CT 08/25/20 19:17 IMPRESSION: Normal unenhanced CT scan of the brain. Electronically Signed: Bucky Klein MD at 19:43 EST , Service support , ADDENDUM: 08/25/201955 IMPRESSION: Normal unenhanced CT scan of the brain. N.B. : The above information has been verbally conveyed by Bucky Klein MD to Dr. Elis Nolan MD, on 08/25/2020 19:49:48 (ET). Electronically Signed: Bucky Klein MD at 19:43 EST , Service support , Head/Neck CTA 08/25/20 19:25 IMPRESSION: Moderate calcified plaque of the cavernous carotid arteries with bilateral moderate grade intracranial stenosis. Bilateral calcified ICA plaque with mild grade stenosis of the right ICA and no significant stenosis on the left. No focal acute thrombi or occlusions. N.B. : The above information has been verbally conveyed by Bucky Klein MD to Elis Nolan MD, on 08/25/2020 19:49:40 (ET). Electronically Signed: Bucky Klein MD at 19:50 EST , Service support , ADDENDUM: 08/25/201956 IMPRESSION: Moderate calcified plaque of the cavernous carotid arteries with bilateral moderate grade intracranial stenosis. Bilateral calcified ICA plaque with mild grade stenosis of the right ICA and no significant stenosis on the left. No focal acute thrombi or occlusions. N.B. : The above information has been verbally conveyed by Bucky Klein MD to Elis Nolan MD, on 08/25/2020 19:49:40 (ET). Electronically Signed: Bucky Klein MD at 19:50 EST , Service support , Chest X-Ray 08/25/20 19:49 IMPRESSION: No definite acute or significant abnormality seen. Electronically Signed: Bucky Klein MD at 20:30 EST , Service support , [place]: nephrology [place]: [facility] Operations: [email or web address] Procedures: Dialysis Summary of Care Provided: The patient is a 74 year old M presents with aphasia. Patient was found to be in hyperosmolar hyponatremic state. Patient's blood sugar upon arrival was over 1000. Patient had recently been started on steroids for acute interstitial nephritis. Patient is known type II diabetic on oral medications. Patient was started on insulin drip and eventually transitioned over to prandial as well as basal insulin and his blood sugars have steadily improved. Patient had enc ephalopathy due to the states and that has since resolved. The issues regards to his voice were evaluated with fiberoptic laryngoscopy by nephrology. No obvious vocal cord lesion was identified felt to be related with the patient's underlying encephalopathy that he had these vocal issues. Patient was seen by nephrology as well as he has received hemodialysis while he is here. Patient will continue with his hemodialysis in the interim as well as continue with prednisone slow taper. Patient will need to follow-up with his primary care doctor in regards to further management of his diabetes. I made the patient aware that his blood sugar will start to go down as a steroids decrease, how much is unclear at this time. Patient may need to have further de- escalation of his insulin regimen depending on how his blood sugars respond with decreased prednisone. Patient will continue with hemodialysis every Wednesday, follow-up with nephrology, cardiology as well as hematology. Patient has had A. fib taken off his rivaroxaban due to recent renal biopsy. Cardiology during last admission recommend hematology evaluation in regards to resumption of anticoagulation. Patient already has a an appointment scheduled with Dr. Mckeon coming up in the next week to address this issue. Due to the renal issues, patient will unlikely be able to resume rivaroxaban but likely will need to be put on apixaban or another agent that would be amenable to the patient's kidney disease. [] Patient Problems: Active and Suspected Problems (Last Updated 08/12/20 @ 11:[address] Chelsie Cárdenas MD) Expressive aphasia (Acute) Hyperosmolar hyperglycemic state (HHS) (Acute) Dysphasia (Acute) Acute renal injury (Acute) Monoclonal gammopathy (Acute) - Physical Exam Vitals/I&O's: Vital Signs Temp Pulse Resp BP Pulse Ox 36.6 C 113 H 18 117/76 99 08/28/20 07:45 08/28/20 08:05 08/28/20 07:45 08/28/20 07:45 08/28/20 07:45 Oxygen Delivery Method Room Air Weight: 82.7 kg Body Mass Index (BMI) 25.2 Finger Stick Blood Glucose 304 Intake and Output for Last 24 Hours 08/26/20 08/27/20 08/28/20 23:59 23:59 23:59 Intake Total 4163.11 / 4163.11 1680 / 1880 600 / 600 Output Total 1400 / 1400 1050 / 1050 900 / 900 Balance 2763.11 / 2763.11 630 / 830 -300 / -300 General: Alert, No apparent distress HEENT: Atraumatic, Normocephalic Oral: Moist Mucosa, No Gingival or Mucosal Lesions/ Ulcerations Neck: No Nodes, Thyroid Normal Size and Texture Lungs: Clear to auscultation, Normal air movement, No rhonchi, No wheeze, No rales Cardiovascular: Regular rate, Regular Rhythm, Normal S1, Normal S2, No murmurs Abdomen: Bowel Sounds Present, Soft, Non Tender, Non-Distended, No Hepato-splen omegaly Extremities: No edema, No Calf Tenderness Laboratory Results 08/27/20 12:10: POC Glucose 233 H 08/27/20 16:16: POC Glucose 126 H 08/27/20 21:09: POC Glucose 177 H 08/28/20 06:17: Sodium 141, Potassium 3.7, Chloride 108 H, Carbon Dioxide 26.0, Anion Gap 7, BUN 69 H, Creatinine 4.47 H, Estim Creat Clear Calc 14.74, Est GFR (MDRD) Af Amer 17 L, Est GFR (MDRD) Non-Af 14 L, BUN/Creatinine Ratio 15.4, Glucose 90, Calcium 7.6 L 08/28/20 06:19: POC Glucose 93 Current Medications Acetaminophen (Acetaminophen 325 Mg Tablet) 650 mg PO Q6H PRN PRN PRN Reason: Pain 1-10 or Fever Last Admin: 08/26/20 09:58 Dose: 650 mg Documented by: Albuterol Sulfate (Albuterol 2.5 Mg/3 Ml Vial.Neb.) 2.5 mg INHALATION Q2H PRN PRN PRN Reason: Dyspnea, wheezing Amiodarone HCl (Amiodarone 200 Mg Tablet) 200 mg PO DAILY [facility] Last Admin: 08/28/20 08:06 Dose: 200 mg Documented by: Aspirin (Aspirin 81 Mg Tab.Chew) 81 mg PO DAILY@0800 [facility] Last Admin: 08/27/20 08:40 Dose: 81 mg Documented by: Dextrose (Dextrose 50%-Water 25 Gm/50 Ml Disp.Syrin) 0 gm IV X1 PRN; Protocol PRN Reason: Hypoglycemia Protocol Heparin Sodium (Porcine) (Heparin 10,000 Units/10 Ml Vial) 2,500 units IV UD PRN PRN Reason: Dialysis Cath Heparin Flush Hydralazine HCl (Hydralazine 20 Mg/Ml Vial) 10 mg IV Q4H PRN PRN PRN Reason: SBP > 160 Sodium Chloride () 250 mls @ 15 mls/hr IV .[id number] PRN PRN Reason: Saline Flush Sodium Chloride () 250 mls @ 15 mls/hr IV .[id number] PRN PRN Reason: Additional IVPB Infusion Insulin Glargine (Insulin Glargine 100 Units/Ml Pen) 20 units SC DAILY [facility] Last Admin: 08/28/20 07:55 Dose: 20 u Documented by: Insulin Human Lispro (Insulin Lispro 100 Unit/Ml Insuln.Pen) 5 unit SC TIDAC [facility] Last Admin: 08/28/20 07:54 Dose: 5 u Documented by: Insulin Human Lispro (Insulin Lispro 100 Unit/Ml Insuln.Pen) 0 unit SC TIDAC [facility]; Protocol Last Admin: 08/28/20 06:29 Dose: Not Given Documented by: Labetalol HCl (Labetalol (Prefilled) 20 Mg/4 Ml) 20 mg IV X1 PRN PRN Reason: BLOOD PRESSURE Labetalol HCl (Labetalol (Prefilled) 20 Mg/4 Ml) 10 - 20 mg IV Q10M PRN PRN PRN Reason: to Maintain BP Goals Metoprolol Tartrate (Metoprolol Tartrate 50 Mg Tablet) 50 mg PO BID [facility] Last Admin: 08/28/20 08:05 Dose: 50 mg Documented by: Pantoprazole Sodium (Pantoprazole Sodium 40 Mg Tablet) 40 mg PO DAILY [facility] Last Admin: 08/27/20 08:40 Dose: 40 mg Documented by: Pravastatin Sodium (Pravastatin 20 Mg Tablet) 20 mg PO QHS [facility] Last Admin: 08/27/20 21:02 Dose: 20 mg Documented by: [facility] ([facility] Mg [facility] Last Admin: 08/27/20 08:40 Dose: 60 mg Documented by: Sodium Chloride (0.9% Saline Lock 10 Ml Syringe) 10 - 40 ml IV UD PRN PRN Reason: SALINE FLUSH Last Admin: 08/26/20 09:00 Dose: 20 ml Documented by: Tamsulosin HCl (Tamsulosin Hcl 0.4 Mg Capsule) 0.4 mg PO DAILY [facility] Last Admin: 08/27/20 08:41 Dose: 0.4 mg Documented by: Discharge Diet: Renal Diet Call your doctor if you observe: Fever of 101 or Higher, Inability to urinate, - - uncontrolled blood sugar Home Medications: Medications to take at Discharge Tamsulosin HCl [Flomax] 0.4 mg PO DAILY 01/21/16 metoprolol tartrate 50 mg tablet 50 mg PO BID 10/18/18 omega-3 fatty acids 1,000 mg capsule 1,000 mg PO DAILY@1200 cap 01/22/20 pravastatin 20 mg tablet 20 mg PO QHS #90 tab 07/10/20 Amiodarone HCl 200 mg PO DAILY 08/05/20 Pantoprazole Sodium [Protonix] 40 mg PO DAILY #30 tab 08/16/20 Prednisone 60 mg PO DAILY #180 tab.ds.pk 08/16/20 Aspirin [Aspirin, Baby] 81 mg PO DAILY@0800 tab.chew 08/28/20 Insulin Glargine [Lantus SoloStar Pen] 20 units SC DAILY #1 pen 08/28/20 Insulin Lispro [Humalog KwikPen] 5 unit SC TIDAC #1 insuln.pen 08/28/20 [place], Insulin Disposable [Novofine Autocover 30G Needle] 1 ea MISCELL. UD #1 box 08/28/20 Following Prescriptions Were Given to Patient: Insulin Lispro [Humalog KwikPen] 5 unit SC TIDAC #1 insuln.pen Transmission Status: Pending to [facility] Insulin Glargine [Lantus SoloStar Pen] 20 units SC DAILY #1 pen Transmission Status: Pending to [facility] [place], Insulin Disposable [Novofine Autocover 30G Needle] 1 ea MISCELL. UD #1 box Transmission Status: Pending to [facility] Other Amb Orders: Glucometer Location: None Selected Primary Care Physician: Guanakito Quarles MD [Primary Care Provider] - Within 2 Weeks [facility], Wednesday, Wednesday Please Follow Up With: Jonathan Crump MD When: 2-4 weeks Please Follow Up With: Blake Blas MD When: 09/04/2020, already scheduled Please Follow Up With: Blake Mckeon DO When: next scheduled appointment Patient Instructions: Using a Blood Sugar Log, Hyperglycemia (High Blood Sugar), Hypoglycemia (Low Blood Sugar), How to Check Your Blood Sugar, Using Injected Insulin, Types of Insulin, Healthy Meals for Diabetes Disposition: Home Minutes spent on discharge:: 35 Patient Condition:: Fair Medical Necessity - Tobacco Use Smoking Status: Never smoker Tobacco Use: Non-smoker Meaningful Use Info Meaningful Use Diagnoses (Choose all that apply): None applicable Inpatient E&M: 86429 Disch Hosp
--- NOTE | 2020-08-28 11:55 | PCM.PN.REN ---
Patient Problems: Active and Suspected Problems (Last Updated 08/12/20 @ 11:[address] Chelsie Cárdenas MD) Expressive aphasia (Acute) Hyperosmolar hyperglycemic state (HHS) (Acute) Dysphasia (Acute) Acute renal injury (Acute) Monoclonal gammopathy (Acute) Subjective: no new complaints - Physical Exam Vitals/I&O's: Vital Signs Temp Pulse Resp BP Pulse Ox 97.8 F 113 H 18 117/76 99 08/28/20 07:45 08/28/20 08:05 08/28/20 07:45 08/28/20 07:45 08/28/20 07:45 Oxygen Delivery Method Room Air Weight: 82.7 kg Body Mass Index (BMI) 25.2 Finger Stick Blood Glucose 304 Intake and Output for Last 24 Hours 08/26/20 08/27/20 08/28/20 23:59 23:59 23:59 Intake Total 4163.11 / 4163.11 1680 / 1880 600 / 600 Output Total 1400 / 1400 1050 / 1050 900 / 900 Balance 2763.11 / 2763.11 630 / 830 -300 / -300 General: Alert, Oriented x3, Cooperative HEENT: Atraumatic, PERRLA, EOMI, Normocephalic Neck: Supple, No JVD, Negative Carotid Bruits Lungs: Clear to auscultation, Normal air movement Cardiovascular: Regular rate, No murmurs Abdomen: Bowel Sounds Present, Soft, Non Tender Extremities: No edema, Capillary Refill Less than 3 Seconds Skin: No rashes, No breakdown Musculoskeletal: No Tenderness to Palpation of Joints or Extremities Neurological: Cranial nerves II-XII grossly intact Psych/Mental Status: Normal Affect, Appropriate Laboratory Results 08/27/20 12:10: POC Glucose 233 H 08/27/20 16:16: POC Glucose 126 H 08/27/20 21:09: POC Glucose 177 H 08/28/20 06:17: Sodium 141, Potassium 3.7, Chloride 108 H, Carbon Dioxide 26.0, Anion Gap 7, BUN 69 H, Creatinine 4.47 H, Estim Creat Clear Calc 14.74, Est GFR (MDRD) Af Amer 17 L, Est GFR (MDRD) Non-Af 14 L, BUN/Creatinine Ratio 15.4, Glucose 90, Calcium 7.6 L 08/28/20 06:19: POC Glucose 93 Current Medications Acetaminophen (Acetaminophen 325 Mg Tablet) 650 mg PO Q6H PRN PRN PRN Reason: Pain 1-10 or Fever Last Admin: 08/26/20 09:58 Dose: 650 mg Documented by: Albuterol Sulfate (Albuterol 2.5 Mg/3 Ml Vial.Neb.) 2.5 mg INHALATION Q2H PRN PRN PRN Reason: Dyspnea, wheezing Amiodarone HCl (Amiodarone 200 Mg Tablet) 200 mg PO DAILY [facility] Last Admin: 08/28/20 08:06 Dose: 200 mg Documented by: Aspirin (Aspirin 81 Mg Tab.Chew) 81 mg PO DAILY@0800 [facility] Last Admin: 08/27/20 08:40 Dose: 81 mg Documented by: Dextrose (Dextrose 50%-Water 25 Gm/50 Ml Disp.Syrin) 0 gm IV X1 PRN; Protocol PRN Reason: Hypoglycemia Protocol Heparin Sodium (Porcine) (Heparin 10,000 Units/10 Ml Vial) 2,500 units IV UD PRN PRN Reason: Dialysis Cath Heparin Flush Hydralazine HCl (Hydralazine 20 Mg/Ml Vial) 10 mg IV Q4H PRN PRN PRN Reason: SBP > 160 Sodium Chloride () 250 mls @ 15 mls/hr IV .[id number] PRN PRN Reason: Saline Flush Sodium Chloride () 250 mls @ 15 mls/hr IV .[id number] PRN PRN Reason: Additional IVPB Infusion Insulin Glargine (Insulin Glargine 100 Units/Ml Pen) 20 units SC DAILY [facility] Last Admin: 08/28/20 07:55 Dose: 20 u Documented by: Insulin Human Lispro (Insulin Lispro 100 Unit/Ml Insuln.Pen) 5 unit SC TIDAC [facility] Last Admin: 08/28/20 07:54 Dose: 5 u Documented by: Insulin Human Lispro (Insulin Lispro 100 Unit/Ml Insuln.Pen) 0 unit SC TIDAC [facility]; Protocol Last Admin: 08/28/20 06:29 Dose: Not Given Documented by: Labetalol HCl (Labetalol (Prefilled) 20 Mg/4 Ml) 20 mg IV X1 PRN PRN Reason: BLOOD PRESSURE Labetalol HCl (Labetalol (Prefilled) 20 Mg/4 Ml) 10 - 20 mg IV Q10M PRN PRN PRN Reason: to Maintain BP Goals Metoprolol Tartrate (Metoprolol Tartrate 50 Mg Tablet) 50 mg PO BID [facility] Last Admin: 08/28/20 08:05 Dose: 50 mg Documented by: Pantoprazole Sodium (Pantoprazole Sodium 40 Mg Tablet) 40 mg PO DAILY [facility] Last Admin: 08/27/20 08:40 Dose: 40 mg Documented by: Pravastatin Sodium (Pravastatin 20 Mg Tablet) 20 mg PO QHS [facility] Last Admin: 08/27/20 21:02 Dose: 20 mg Documented by: Prednisone (Prednisone 20 Mg Tablet) [facility] Last Admin: 08/27/20 08:40 Dose: 60 mg Documented by: Sodium Chloride (0.9% Saline Lock 10 Ml Syringe) 10 - 40 ml IV UD PRN PRN Reason: SALINE FLUSH Last Admin: 08/26/20 09:00 Dose: 20 ml Documented by: Tamsulosin HCl (Tamsulosin Hcl 0.4 Mg Capsule) 0.4 mg PO DAILY [facility] Last Admin: 08/27/20 08:41 Dose: 0.4 mg Documented by: Medical Necessity - Tobacco Use Smoking Status: Never smoker Tobacco Use: Non-smoker Assessment/Plan All Active Problems (Last Updated 08/12/20 @ 11:[address] Chelsie Cárdenas MD) Expressive aphasia (Acute) Hyperosmolar hyperglycemic state (HHS) (Acute) Dysphasia (Acute) Acute renal injury (Acute) Monoclonal gammopathy (Acute) Acute renal failure. Recent blood work-up showed positive serum protein electrophoresis, positive JOLANTA, positive double-stranded DNA, borderline C3. We did a kidney biopsy which showed interstitial nephritis with extensive calcium oxalate deposition. Extensive dietary review, medication review did not yield any source of calcium oxalate deposition. He was empirically started on steroids. Urine output has picked up over the last few days. cr is higher than yesterday and significantly above baseline. dont think he is completely recovered yet. resume dialysis from tomorrow and continue MWF schedule. Hyperglycemia. Likely contributory factor was prednisone. taper off prednisone after 2 weeks of steroids
[2020-08-28 12:16] LABS: Bedside Glucose 93 mg/dL (70-110)
--- NOTE | 2020-08-28 12:29 | NURSING ---
RNCM DC Planning Note: Patient to DC Home Today 2.10.13 Went to patient bedside and introduced self and role. Discussed DM management and patient states that we all have it under control. States has enough Glucometer supplies and between the nurse and his son We all have it figured out and will go home with insulin. Offered additional Support/teaching with [facility] for DM management and patient declines and states that he has a book next to him with meals. Denies any further needs, issues or concerns with DC planning at this time. Marty Ervin RNCM
[2020-08-28] MEDS: Alteplase 2 MG/2 ML Vial IV ×2 (15:25)
[2020-08-28 19:06] LABS: Bedside Glucose 54 mg/dL (70-110)
[2020-08-28 19:26] LABS: Bedside Glucose 70 mg/dL (70-110)
--- NOTE | 2020-08-28 19:28 | NURSING ---
late entry from 1600: this RN spent 45 minutes with patient and providing education about home glucometer that son picked up. practiced using home lancets and glucometer. at this time, blood glucose is 81 from home glucometer. discussed home insulin pens and needles which pt has been using while here at hospital. provided written information about checking and recording blood sugars, hypo and hyperglycemia, insulin types. late entry from 1900: pt was unable to eat supper due to dialysis treatment, called out stating he felt weak. blood sugar checked and at 54. provided snack and juice and rechecked. blood glucose up to 70. pt given another snack.
--- NOTE | 2020-08-28 19:48 | NURSING ---
reviewed and agreed with documentation by ELIEL Mathis
--- NOTE | 2020-08-28 19:49 | DIALYSIS ---
HD discontinued early d/t system clotting. Able to return the blood. Time lost was 13 minutes. Fluid positive 90ml post tx. Dr. Crump is aware. Used right chest wall dialysis catheter. See tx noted for more details. Catheter is very positional. Lumens closed with heparin per fill volume. Caps placed. Dressing is dry and intact. Venofer given as ordered. Report was given to MAGGIE Steward.
[2020-08-28] MEDS: Pravastatin 20 MG Tablet PO (20:14)
== END 2020-08-28 20:33 | disposition home or self-care (01) | DRG 637 ==
LOC: ED 20:49 → ICU 20:55 → MS3 08-27 15:49
PROVIDERS: Internal Medicine Critical Care Medicine; Admitting Provider Family Medicine; Emergency Provider Emergency Medicine; PCP Family Medicine
DX: E11.00 Type 2 diabetes mellitus with hyperosmolarity without nonketotic hyperglycemic-hyperosmolar coma (NKHHC) (principal); G93.41 Metabolic encephalopathy; I47.2 Ventricular tachycardia; N17.9 Acute kidney failure, unspecified; E87.1 Hypo-osmolality and hyponatremia; N10 Acute pyelonephritis; D47.2 Monoclonal gammopathy; D69.6 Thrombocytopenia, unspecified; D64.9 Anemia, unspecified; T38.0X5A Adverse effect of glucocorticoids and synthetic analogues, initial encounter; I25.10 Atherosclerotic heart disease of native coronary artery without angina pectoris; I12.9 Hypertensive chronic kidney disease with stage 1 through stage 4 chronic kidney disease, or unspecified chronic kidney disease; E11.22 Type 2 diabetes mellitus with diabetic chronic kidney disease; N18.2 Chronic kidney disease, stage 2 (mild); I65.21 Occlusion and stenosis of right carotid artery; K21.9 Gastro-esophageal reflux disease without esophagitis; E78.5 Hyperlipidemia, unspecified; H91.90 Unspecified hearing loss, unspecified ear; N40.0 Benign prostatic hyperplasia without lower urinary tract symptoms; I48.0 Paroxysmal atrial fibrillation; E78.00 Pure hypercholesterolemia, unspecified; Z79.84 Long term (current) use of oral hypoglycemic drugs; Z79.899 Other long term (current) drug therapy
CPT/HCPCS: 36415; 70450; 70496; 70498; 71045; 80048; 80053; 80061; 82947; 82962; 83036; 83735; 83930; 84100; 84439; 84443; 84484; 85025; 85610; 85730; 90937; 92507; 92522; 93005; 97162; 97166; 97530; 97802; 97803; 99285; J1756; J2997; J7030; J7120; Q9967; A4216; G0257

== ENCOUNTER 2020-09-23 19:00 | Inpatient (IN) | payer MEDICARE, OTHER, SELFPAY ==
[2020-09-04 15:38] VITALS: BMI 25.1
[2020-09-23] VITALS (8 sets, daily range): BP systolic 77–114; BP diastolic 51–77; PULSE 102–128; RESP 12–22; TEMP 36–36.8; O2SAT 97–100; BMI 25.0; BMI 24.1
--- NOTE | 2020-09-23 19:23 | EKG12_ITS ---
Test Reason : WEAKNESS Blood Pressure : / mmHG Vent. Rate : 123 BPM Atrial Rate : 075 BPM P-R Int : 000 ms QRS Dur : 086 ms QT Int : 338 ms P-R-T Axes : 000 039 097 degrees QTc Int : 483 ms Atrial fibrillation with rapid ventricular response Nonspecific T wave abnormality Abnormal ECG Confirmed by ARTURO EATON, FELIZ ([id number]), editor trade journal LO ARRINGTON ([id number]) on 09/24/2020 10:48:04 AM Referred By: DIANA Confirmed By:FELIZ MORRIS MD
--- NOTE | 2020-09-23 19:24 | ED.VIS.GEN ---
History of Present Illness Chief Complaint: General Illness Narrative: Patient presents with weakness lightheadedness especially when he stands up for the past few days, he saw his PCP and was found to be hypotensive was taken off his blood pressure medications except his metoprolol and amiodarone which are for his atrial fibrillation. He is new to dialysis about 1 month, he has a right chest wall catheter which has been working well. He denies any fever or chills. He has no shortness of breath. No cough or congestion no urinary symptoms. Past medical history: Hypertension, hypercholesterolemia, diabetes, end-stage renal disease on hemodialysis, atrial fibrillation Medications: Reviewed Social history: Noncontributory Review of systems: All systems negative except as indicated General: Denies: Fever. He does have lightheadedness Eyes: Denies: Visual changes - bilaterally ENT: Denies: Rhinorrhea, Sore throat Cardiovascular: Denies: Chest pain, he does feel tachycardia Respiratory: Denies: Dyspnea, Cough Gastrointestinal: Denies: Abdominal pain, Nausea, Vomiting Genitourinary: Denies: Dysuria Musculoskeletal: Denies: Myalgias Skin: Denies: Rash Neurological: Denies: Headache, no focal weakness Psych: Reports: negative Hematologic: Denies: Easy bruising, Easy bleeding Physical exam General: Patient appears chronically ill, he is hypotensive and tachycardic Head: Normocephalic, Atraumatic Eyes: Conjunctiva not pale ENT: Slightly dry mucous membranes Neck: Supple, Nontender, No lymphadenopathy Cardiovascular: Irregular rhythm, tachycardic. Chest wall: Right tunneled dialysis catheter is intact without any signs of infection Respiratory: No distress, CTA bilaterally Abdomen: Soft, Nontender, Nondistended Back: Nontender, Normal Inspection. Negative for: CVA tenderness Extremities: Nontender, No edema Skin: Normal color, No rash Neurological: Alert, Normal Strength, Normal Sensation Psychological: Normal affect Past Medical History - Allergies and Home Meds Allergies/Adverse Reactions: Allergies scopolamine Adverse Reaction (Verified 09/23/20 19:01) HALLUCINATIONS SOME TYPE OF IV DYE FOR ULTRA BRYCE Adverse Reaction (Uncoded 09/23/20 19:01) backache Had during ultrasound of his heart Primary Care Physician: Guanakito Quarles MD [Primary Care Provider] - Surgical History: cholecystectomy - Cholecystectomy with ERCP. Smoking Status: Never smoker - Family History Maternal Family History: Family History (Last Reviewed 09/04/20 @ 15:42 by Brittani Peoples) Father CAD (coronary artery disease) Mother Alzheimers disease Sister Breast cancer Family History: Reports: Dementia Paternal Family History: Family History (Last Reviewed 09/04/20 @ 15:42 by Brittani Peoples) Father CAD (coronary artery disease) Mother Alzheimers disease Sister Breast cancer Family History: Reports: Cancer - Father with history of colon cancer., High Cholesterol, Heart Disease, Hypertension Physical Exam Vital Signs/Narrative: Vital Signs Temp Pulse Resp BP Pulse Ox 09/23/20 19:17 128 H 14 81/54 L 98 09/23/20 19:01 96.8 F L 107 H 15 77/51 L 99 Diagnostic/Tx/Re-eval - Medical Decision Making Patient is found to be anemic, he is also thrombocytopenic which will have to be watched especially that he likely gets heparin at dialysis I will talk to the hospitalist about heparin-induced thrombocytopenia. He does not meet criteria for transfusion of platelets but he does meet criteria for blood transfusion he is guaiac positive, other than dialysis he is not on any anticoagulation he is on aspirin only. He will receive blood, he is still slightly hypotensive and tachycardic. Because of this we will admit to the intensive care unit. - Critical Care Time Critical care time (excluding procedures): 30-74 minutes, - - Record care time of 35 minutes secondary to hemorrhagic shock, A. fib with RVR and hemodynamic instability. ED Disposition - Plan for ED Patient: Disposition: [facility] Diagnosis: Atrial fibrillation, Hemorrhagic shock, GI bleed, Thrombocytopenia Referrals: Guanakito Quarles MD [Primary Care Provider] -
[2020-09-23 19:44] LABS: Absolute Lymphocyte Count 0.35 X10^3/uL (0.83-4.51); Absolute Neutrophil Count 6.1 X10^3/uL (2.0-7.7); Basophil# 0.01 X10^3/uL; Basophil% 0.1 % (0-1); Eosinophil# 0.04 X10^3/uL; Eosinophils% 0.6 % (0-5); Hematocrit 21.2 % (40-54); Hemoglobin 6.8 g/dL (13.0-16.5); Lymphocyte # 0.35 X10^3/ul (4.0); Mean Corp Hgb Conc 32.1 g/dL (32-36); Mean Corpuscular Hgb 33.7 pg (27.0-32.0); Mean Platelet Vol. 13.6 fl (6.2-12.0); Monocyte# 0.43 X10^3/uL; Monocyte% 6.1 % (0-10); NRBC Flagged by Analyzer 0.3 % (0-5); Neutrophil # 6.07 X10^3/uL (2.7-7.7); Neutrophil % 86.8 % (47-70); POSITIVE COUNT YES; POSITIVE DIFFERENTIAL YES; POSITIVE MORPHOLOGY YES; Platelet Count 42 K/mm3 (150-450); RBC Distribution Width CV 20.7 % (11.6-14.6); Red Blood Count 2.02 M/mm3 (4.6-6.2)
[2020-09-23 19:51] LABS: Differential Indicated SCAN CRITERIA MET
--- NOTE | 2020-09-23 19:56 | RAD_ITS ---
STUDY: X-RAY CHEST REASON FOR EXAM: Male, 74 years old. Weakness TECHNIQUE: 2 frontal images of the chest were obtained. COMPARISON: 08/25/2020 FINDINGS: There is no new focal consolidation. There is a stable double lumen dialysis catheter with its tip within the expected region of the superior vena cava. Normal size heart. Normal mediastinum and yanely. Normal visualized pulmonary arteries. Normal visualized aortic arch and descending thoracic aorta. There are diffuse degenerative changes of the visualized thoracic spine. Normal visualized ribs, clavicles, and shoulders. There is no demonstrated abnormality of the visualized soft tissue structures of the upper abdomen. RAD/Chest 1 View (Portable) IMPRESSION: No acute cardiopulmonary process. Electronically Signed: Jeannie Solis MD at 20:27 EST Tel , Service support ,
[2020-09-23 20:01] LABS: ALB/GLOB Ratio 0.7 RATIO (0.9-2.4); AST(SGOT) 8 U/L (15-37); Alanine Aminotransfer ALT/SGPT 52 U/L (16-61); Albumin, Serum 1.9 g/dL (3.2-5.0); Alkaline Phosphatase 71 U/L (45-117); Anion Gap 9 (5-15); BUN 33 mg/dL (7-18); BUN/Creat Ratio 11.3 RATIO (10-20); Calcium,Total 7.3 mg/dL (8.5-10.1); Chloride 107 mmol/L (98-107); Creatinine, Serum 2.92 mg/dL (0.70-1.30); EST Glomerular Filtration Rate 22 mL/min (>60); Est Glom Filt Rate - Afr Amer 27 mL/min (>60); Estimated Creatinine Clearance 22.57 ml/min; Globulin 2.7 g/dL (2.2-4.2); Glucose 120 mg/dL (74-106); Potassium 3.5 mmol/L (3.5-5.1); Protein, Total 4.6 g/dL (6.4-8.2); Sodium Level 144 mmol/L (136-145)
[2020-09-23] MEDS: Digoxin 250 MCG/ML Ampul 125 MCG IV (20:11)
[2020-09-23 20:27] LABS: Anisocytosis 1+; Platelet Estimate MKD DEC (ADEQ)
--- NOTE | 2020-09-23 22:31 | PCM.HP.STD ---
Problem List (1) Acute renal injury Status: Inactive (2) Anemia Status: Acute Qualifiers: Anemia type: unspecified type Qualified Code(s): D64.9 - Anemia, unspecified (3) Atherosclerotic heart disease of [place] coronary artery without angina pectoris Status: Chronic Qualifiers: [place] vs. transplanted heart: [place] heart Qualified Code(s): I25.10 - Atherosclerotic heart disease of [place] coronary artery without angina pectoris Comment: CX 20-30% prox-mid stenosis, LAD 20-30% and 10-20% anterior trunk stenosis, OM1 20-30% tapering ostial stenosis, RCA 20% prox stenosis- per cath 08/14/08; LEFT MAIN: Mild luminal irregularities; LEFT ANTERIOR DESCENDING ARTERY: PROX LAD: Mild calcification, Mild luminal irregularities, eccentric: 10 - 25 % Stenosis; MID LAD: Mild luminal irregularities; CIRCUMFLEX ARTERY: Mild luminal irregularities; RIGHT CORONARY ARTERY: PROX RCA: Mild calcification, Mild luminal irregularities, eccentric: 10 - 25 % Stenosis MID RCA: Mild luminal irregularities; AORTIC ROOT: Angiographically normal per cath 05/16/19 (4) Atrial fibrillation Status: Chronic (5) BPH (benign prostatic hyperplasia) Status: Chronic Qualifiers: Lower urinary tract symptom presence: unspecified whether lower urinary tract symptoms present Qualified Code(s): N40.0 - Benign prostatic hyperplasia without lower urinary tract symptoms (6) CAD in [place] artery Status: Chronic (7) Diabetes mellitus, type II Status: Chronic Qualifiers: Diabetes mellitus complication status: with circulatory complication Diabetes mellitus complication detail: with other circulatory complications Qualified Code(s): E11.59 - Type 2 diabetes mellitus with other circulatory complications (8) Dysphasia Status: Inactive (9) Essential hypertension Status: Chronic (10) Expressive aphasia Status: Inactive (11) Gastroesophageal reflux disease Status: Chronic Qualifiers: Esophagitis presence: esophagitis presence not specified Qualified Code(s): K21.9 - Gastro-esophageal reflux disease without esophagitis (12) GI bleed Status: Acute (13) Hemorrhagic shock Status: Inactive (14) Hyperosmolar hyperglycemic state (HHS) Status: Inactive (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 fib who presents to the emergency department with weakness and lightheadedness. His symptoms started after dialysis. At the emergency part the patient was found to be anemic. His fecal occult blood test was positive. He denies any black stools. Initially patient was found to be hypotensive and was in A. fib with RVR. Recently his amlodipine was stopped because of hypotension. Emergency department doctor reported brown stool on examination but positive occult stool. Past Medical History Past Medical History (Chronic Problems): Chronic Problems (Last Reviewed 09/24/20 @ 04:[address] 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 gammopathy (Chronic) senior care current use of amiodarone (Chronic) CAD in [place] artery (Chronic) Pure hypercholesterolemia (Chronic) Essential hypertension (Chronic) Atherosclerotic heart disease of [place] coronary artery without angina pectoris (Chronic) CX 20-30% prox-mid stenosis, LAD 20-30% and 10-20% anterior trunk stenosis, OM1 20-30% tapering ostial stenosis, RCA 20% prox stenosis- per cath 08/14/08; LEFT MAIN: Mild luminal irregularities; LEFT ANTERIOR DESCENDING ARTERY: PROX LAD: Mild calcification, Mild luminal irregularities, eccentric: 10 - 25 % Stenosis; MID LAD: Mild luminal irregularities; CIRCUMFLEX ARTERY: Mild luminal irregularities; RIGHT CORONARY ARTERY: PROX RCA: Mild calcification, Mild luminal irregularities, eccentric: 10 - 25 % Stenosis MID RCA: Mild luminal irregularities; AORTIC ROOT: Angiographically normal per cath 05/16/19 Paroxysmal atrial fibrillation (Chronic) Gastroesophageal reflux disease (Chronic) Diabetes mellitus, type II (Chronic) Medical History: Medical History (Last Reviewed 09/24/20 @ 04:[address] Miguel Larry MD) Pure hypercholesterolemia (Chronic) E78.00 Essential hypertension (Chronic) I10 Atherosclerotic heart disease of [place] coronary artery without angina pectoris (Chronic) I25.10 CX 20-30% prox-mid stenosis, LAD 20-30% and 10-20% anterior trunk stenosis, OM1 20-30% tapering ostial stenosis, RCA 20% prox stenosis- per cath 08/14/08; LEFT MAIN: Mild luminal irregularities; LEFT ANTERIOR DESCENDING ARTERY: PROX LAD: Mild calcification, Mild luminal irregularities, eccentric: 10 - 25 % Stenosis; MID LAD: Mild luminal irregularities; CIRCUMFLEX ARTERY: Mild luminal irregularities; RIGHT CORONARY ARTERY: PROX RCA: Mild calcification, Mild luminal irregularities, eccentric: 10 - 25 % Stenosis MID RCA: Mild luminal irregularities; AORTIC ROOT: Angiographically normal per cath 05/16/19 Paroxysmal atrial fibrillation (Chronic) I48.0 Diabetes mellitus, type II (Chronic) E11.9 Body mass index (bmi) 29.0-29.9, adult Z68.29 Chest pain R07.9 History of left heart catheterization (LHC) Onset Date: ~05/16/19 Z98.890 CX 20-30% prox-mid stenosis, LAD 20-30% and 10-20% anterior trunk stenosis, OM1 20-30% tapering ostial stenosis, RCA 20% prox stenosis- per cath 08/14/08; LEFT MAIN: Mild luminal irregularities; LEFT ANTERIOR DESCENDING ARTERY: PROX LAD: Mild calcification, Mild luminal irregularities, eccentric: 10 - 25 % Stenosis; MID LAD: Mild luminal irregularities; CIRCUMFLEX ARTERY: Mild luminal irregularities; RIGHT CORONARY ARTERY: PROX RCA: Mild calcification, Mild luminal irregularities, eccentric: 10 - 25 % Stenosis MID RCA: Mild luminal irregularities; AORTIC ROOT: Angiographically normal per cath 05/16/19 CAD (coronary artery disease) (Inactive) I25.10 Wide-complex tachycardia (Inactive) I47.2 Allergies scopolamine Adverse Reaction (Verified 09/23/20 19:01) HALLUCINATIONS SOME TYPE OF IV DYE FOR ULTRA BRYCE Adverse Reaction (Uncoded 09/23/20 19:01) backache Had during ultrasound of his heart Home Medications: Ambulatory Orders Medication Instructions Recorded Tamsulosin HCl [Flomax] 0.4 mg PO DAILY 01/21/16 metoprolol tartrate 50 mg tablet 50 mg PO BID 10/18/18 Amiodarone HCl 200 mg PO DAILY 08/05/20 Aspirin [Aspirin, Baby] 81 mg PO DAILY@0800 tab.chew 08/28/20 insulin glargine 100 unit/mL (3 24 unit SC DAILY ml 09/04/20 mL) subcutaneous pen insulin lispro 100 unit/mL 5 unit SC TIDAC PRN insuln.pen 09/04/20 subcutaneous pen pantoprazole 40 mg tablet,delayed 40 mg PO DAILY tab 09/04/20 release sitagliptin 100 mg tablet 100 mg PO DAILY 09/04/20 Pravastatin Sodium 20 mg PO QHS 09/23/20 Prednisone See Taper PO DAILY 09/23/20 Surgical History: Surgical History (Last Reviewed 09/24/20 @ 04:[address] Miguel Larry MD) History of ERCP Z98.890 Hx laparoscopic cholecystectomy Z90.49 Surgical History: cholecystectomy - Cholecystectomy with ERCP. Psychiatric History: No pertinent psych hx Smoking Status: Never smoker - *Family History Maternal Family History: Family History (Last Reviewed 09/24/20 @ 04:[address] Miguel Larry MD) Father CAD (coronary artery disease) Mother Alzheimers disease Sister Breast cancer History Items: Dementia Paternal Family History: Family History (Last Reviewed 09/24/20 @ 04:[address] Miguel Larry MD) Father CAD (coronary artery disease) Mother Alzheimers disease Sister Breast cancer History Items: Cancer - Father with history of colon cancer., High Cholesterol, Heart Disease, Hypertension Review of Systems Constitutional: Denies: Chills, Fever, Weight Change HEENT: Denies: Head Aches, Sinus Congestion, Sinus Drainage Cardiovascular: Reports: Light Headedness. Denies: Chest Pain, Palpitations Respiratory: Denies: Cough, Shortness of breath at rest, Sputum production Gastrointestinal: Denies: Abdominal Pain, Nausea, Vomiting Genitourinary: Denies: Dysuria Musculoskeletal: Denies: Joint Pain, Joint Tenderness Skin: Denies: Rash, Wounds Neurological: Denies: Numbness, Tingling, Focal weakness Psychiatric: Denies: Anxiety, Depression, Homicidal Ideations, Suicidal Ideations Hematologic/ Lymphatic: Denies: Easy Bruising, Easy Bleeding VTE Information - Inpt Only VTE Present on Admission: No VTE Mechan Device Prophylaxis: SCD's VTE Pharm Prophylaxis ordered?: No Patient Problems: Active and Suspected Problems (Last Reviewed 09/24/20 @ 04:[address] Miguel Larry MD) GI bleed (Acute) Anemia (Acute) - Physical Exam Vitals/I&O's: Vital Signs Temp Pulse Resp BP Pulse Ox 98.3 F 114 H 16 111/68 98 09/23/20 22:26 09/23/20 22:26 09/23/20 22:26 09/23/20 22:26 09/23/20 22:26 Oxygen Delivery Method Room Air Weight: 79 kg Body Mass Index (BMI) 25.0 Finger Stick Blood Glucose 304 Intake and Output for Last 24 Hours 09/21/20 09/22/20 09/23/20 23:59 23:59 23:59 Intake Total 500 / 500 Balance 500 / 500 General: Alert, Oriented x3, Cooperative HEENT: Atraumatic, PERRLA, EOMI, Normocephalic Neck: Supple, No JVD, Negative Carotid Bruits Lungs: Clear to auscultation, Normal air movement Cardiovascular: Normal S1, Normal S2, No murmurs, Tachycardic Abdomen: Bowel Sounds Present, Soft, Non Tender Extremities: Capillary Refill Less than 3 Seconds, Edema - 3-4+ bilateral pitting edema Skin: - - Pale Musculoskeletal: No Tenderness to Palpation of Joints or Extremities Neurological: Cranial nerves II-XII grossly intact Psych/Mental Status: Normal Affect, Appropriate Microbiology Past 72 Hours 09/23/20 20:07 Stool Stool Occult Blood (SKYLER) - Final Occult Blood Positive Laboratory Results 09/23/20 19:30: WBC 7.0, RBC 2.02 L, Hgb 6.8 L, Hct 21.2 L, MCV 105.0 H, MCH 33.7 H, MCHC 32.1, RDW Std Deviation 77.0 H, RDW Coeff of Dano 20.7 H, Plt Count 42 L*, MPV 13.6 H, Immature Gran % (Auto) 1.400 H, Neut % (Auto) 86.8 H, Lymph % (Auto) 5.0 L, [place] % (Auto) 6.1, Eos % (Auto) 0.6, Baso % (Auto) 0.1, Absolute Neuts (auto) 6.1, Absolute Lymphs (auto) 0.35 L, Nucleated RBC % 0.3, Diff Path Review May foll, Platelet Estimate MKD DEC, Anisocytosis 1+ 09/23/20 19:30: Sodium 144, Potassium 3.5, Chloride 107, Carbon Dioxide 28.0, Anion Gap 9, BUN 33 H, Creatinine 2.92 H, Estim Creat Clear Calc 22.57, Est GFR (MDRD) Af Amer 27 L, Est GFR (MDRD) Non-Af 22 L, BUN/Creatinine Ratio 11.3, Glucose 120 H, Calcium 7.3 L, Total Bilirubin 0.60, AST 8 L, ALT 52, Alkaline Phosphatase 71, Troponin I 0.024, Total Protein 4.6 L, Albumin 1.9 L, Globulin 2.7, Albumin/Globulin Ratio 0.7 L 09/23/20 19:30: Cortisol 17.20 09/23/20 20:30: Blood Type A POSITIVE, Antibody Screen TNP, Crossmatch See Detail 09/23/20 20:30: Antibody Screen NEGATIVE Current Medications Amiodarone HCl (Amiodarone 200 Mg Tablet) 200 mg PO DAILY CK Assessment/Plan All Active Problems (Last Reviewed 09/24/20 @ 04:[address] Miguel Larry MD) GI bleed (Acute) Anemia (Acute) The patient is a 74 year old M with a significant history of type 2 diabetes; hypertension; CAD status post stent; paroxysmal A. fib who presents emergency department with weakness and lightheadedness; was found to be anemic. Lightheadedness and weakness Likely secondary to hypotension after dialysis; and anemia contributing. Anemia and hypotensive management as below Acute on chronic anemia Hemoglobin of 6.8 at the ED. Baseline hemoglobin is 7 to 8. 2 units of packed red blood cells was ordered at emergency department to be transfused. ED discussed with general surgery on-call who requested inpatient consult if patient has to be scoped inpatient. Iron studies and ferritin ordered. LDH and haptoglobin ordered. Change home Protonix 40 mg p.o. daily to Protonix 40 mg IV twice daily. Hold home aspirin. Patient was previously scoped by Dr. Terrazas outpatient. If hemoglobin is stable consider outpatient GI referral upon discharge. Acute on thrombocytopenia Platelet count of 42 on presentation Patient is a dialysis patients and receives heparin. Will check heparin antibodies. Trend CBC. Hypotension Hold home metoprolol. Trend blood pressures. Admit to intensive care unit and consult cannery worker. Diabetes mellitus Patient with mild hyperglycemia on presentation Hold home long-acting insulin. While n.p.o. Accu-Chek every 6 hours with correction scale insulin ordered. Hold home sitagliptin. A. fib with RVR Received digoxin at the emergency department. Amiodarone continued BPH Flomax continued. Noted blood pressure improving. End-stage and is on dialysis Nephrology consult. DVT prophylaxis scd Inpatient E&M: 19818 Init Hosp L3
[2020-09-24] VITALS (26 sets, daily range): BP systolic 95–135; BP diastolic 48–73; PULSE 67–110; RESP 16–20; TEMP 36.5–37.2; O2SAT 96–100
[2020-09-24] MEDS: CLARIFY ORDER 1 EACH NOTE (00:23)
[2020-09-24 01:14] LABS: Immature Platelet Fraction 14.2 % (1.0-7.9); RET-HE 30.4 pg (30-35); Reticulocyte Count 1.32 % (0.5-1.5)
[2020-09-24 01:16] LABS: Platelet Count 40 K/mm3 (150-450)
[2020-09-24 01:25] LABS: Ferritin 966 ng/mL (26-388); Iron 16 ug/dL (65-175); Iron Binding Capacity,Total 145 ug/dL (250-450); LDH 232 U/L (87-241)
[2020-09-24] MEDS: Acetaminophen 325 MG Tablet 650 MG PO (03:25)
[2020-09-24 05:02] LABS: Absolute Lymphocyte Count 0.34 X10^3/uL (0.83-4.51); Absolute Neutrophil Count 4.3 X10^3/uL (2.0-7.7); Basophil# 0.01 X10^3/uL; Basophil% 0.2 % (0-1); Eosinophil# 0.06 X10^3/uL; Eosinophils% 1.2 % (0-5); Hematocrit 25.4 % (40-54); Hemoglobin 8.1 g/dL (13.0-16.5); Lymphocyte # 0.34 X10^3/ul (4.0); Lymphocyte % 6.6 % (19-41); Mean Corp Hgb Conc 31.9 g/dL (32-36); Mean Corpuscular Hgb 31.6 pg (27.0-32.0); Mean Corpuscular Volume 99.2 fL (80-94); Mean Platelet Vol. 12.3 fl (6.2-12.0); Monocyte# 0.31 X10^3/uL; NRBC Flagged by Analyzer 0.4 % (0-5); Neutrophil # 4.33 X10^3/uL (2.7-7.7); Neutrophil % 84.2 % (47-70); POSITIVE COUNT YES; POSITIVE DIFFERENTIAL YES; POSITIVE MORPHOLOGY YES; RBC Distribution Width CV 20.3 % (11.6-14.6); RBC Distribution Width SD 72.2 fl (35.1-43.9); Red Blood Count 2.56 M/mm3 (4.6-6.2); White Blood Count 5.1 K/mm3 (4.4-11.0)
[2020-09-24 05:10] LABS: Differential Indicated SCAN CRITERIA MET; Platelet Count 37 K/mm3 (150-450)
[2020-09-24 05:16] LABS: Anion Gap 7 (5-15); BUN 40 mg/dL (7-18); BUN/Creat Ratio 12.3 RATIO (10-20); Calcium,Total 7.1 mg/dL (8.5-10.1); Chloride 108 mmol/L (98-107); Creatinine, Serum 3.24 mg/dL (0.70-1.30); EST Glomerular Filtration Rate 20 mL/min (>60); Est Glom Filt Rate - Afr Amer 24 mL/min (>60); Estimated Creatinine Clearance 20.34 ml/min; Glucose 181 mg/dL (74-106); Potassium 3.8 mmol/L (3.5-5.1); Sodium Level 144 mmol/L (136-145)
[2020-09-24 05:50] LABS: Anisocytosis 1+; Differential Comment SCANNED; Platelet Estimate MKD DEC (ADEQ)
[2020-09-24 05:51] LABS: Macrocytosis RARE; Microcytosis RARE
[2020-09-24 06:00] LABS: International Normalized Ratio 1.3
--- NOTE | 2020-09-24 07:35 | CON.PCM_ITS ---
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 transplanted heart: [place] heart Qualified Code(s): I25.10 - Atherosclerotic heart disease of [place] coronary artery without angina pectoris Comment: CX 20-30% prox-mid stenosis, LAD 20-30% and 10-20% anterior trunk stenosis, OM1 20-30% tapering ostial stenosis, RCA 20% prox stenosis- per cath 08/14/08; LEFT MAIN: Mild luminal irregularities; LEFT ANTERIOR DESCENDING ARTERY: PROX LAD: Mild calcification, Mild luminal irregularities, eccentric: 10 - 25 % Stenosis; MID LAD: Mild luminal irregularities; CIRCUMFLEX ARTERY: Mild luminal irregularities; RIGHT CORONARY ARTERY: PROX RCA: Mild calcification, Mild luminal irregularities, eccentric: 10 - 25 % Stenosis MID RCA: Mild luminal irregularities; AORTIC ROOT: Angiographically normal per cath 05/16/19 (11) Paroxysmal atrial fibrillation Status: Chronic (12) Gastroesophageal reflux disease Status: Chronic Qualifiers: Esophagitis presence: esophagitis presence not specified Qualified Code(s): K21.9 - Gastro-esophageal reflux disease without esophagitis (13) Diabetes mellitus, type II Status: Chronic Qualifiers: Diabetes mellitus complication status: with circulatory complication Diabetes mellitus complication detail: with other circulatory complications Qualified Code(s): E11.59 - Type 2 diabetes mellitus with other circulatory complications Reason for Consult Date of Consultation: 09/24/20 Reason for Consultation: Hypotension History of Present Illness: The patient is a 74 year old M, with past medical history listed below who presented to [facility] from his PCPs office on 09/23/2020 secondary to hypotension. Patient reportedly had had weakness and lightheadedness for the past few days. Patient had dialysis just prior to presentation, but was reporting dizziness with standing. Patient had been taken off his blood pressure medications except for metoprolol and amiodarone given his history of A. fib. Patient denies any fever, chills, nausea, vomiting, cough, congestion or dyspnea. Patient believes his dialysis is going well, but is unable to tell us how much he had removed. On presentation to the ER, patient was hypotensive at 77/51 with good saturation on room air. Patient was tachycardic at 107 to 128 bpm. Laboratory work-up was significant for anemia and thrombocytopenia. Patient was given blood, but no platelets with good response. Patient had a chest x-ray showing no acute infiltrate and appropriate position of port. Patient was admitted to the intensive care for further evaluation and monitoring. No pressors have been initiated. Patient is very clear that he has not had any constitutional type symptoms. Patient has not had issues with bleeding from his report. Patient denies any melena, hematochezia, hematemesis or epistaxis. Patient does report intermittent hemorrhoidal bleeding, but this has not been an issue recently. Patient does not routinely get blood transfusions. Patient does believe that he recently had an endoscopy in July showing multiple gastric polyps that were biopsied. These biopsies were resulted as mild gastritis without malignancy. Patient is followed by Dr. Mckeon at baseline. Review of systems otherwise negative from a constitutional, HEENT, respiratory, cardiovascular, GI, genitourinary, musculoskeletal, skin, neurologic, psychiatric and hematologic system unless stated above. Past Medical History Past Medical History (Chronic Problems): Chronic Problems (Last Reviewed 09/24/20 @ 04:[address] 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) CAD in [place] artery (Chronic) Pure hypercholesterolemia (Chronic) Essential hypertension (Chronic) Atherosclerotic heart disease of [place] coronary artery without angina pectoris (Chronic) CX 20-30% prox-mid stenosis, LAD 20-30% and 10-20% anterior trunk stenosis, OM1 20-30% tapering ostial stenosis, RCA 20% prox stenosis- per cath 08/14/08; LEFT MAIN: Mild luminal irregularities; LEFT ANTERIOR DESCENDING ARTERY: PROX LAD: Mild calcification, Mild luminal irregularities, eccentric: 10 - 25 % Stenosis; MID LAD: Mild luminal irregularities; CIRCUMFLEX ARTERY: Mild luminal irregularities; RIGHT CORONARY ARTERY: PROX RCA: Mild calcification, Mild luminal irregularities, eccentric: 10 - 25 % Stenosis MID RCA: Mild luminal irregularities; AORTIC ROOT: Angiographically normal per cath 05/16/19 Paroxysmal atrial fibrillation (Chronic) Gastroesophageal reflux disease (Chronic) Diabetes mellitus, type II (Chronic) Medical History: Medical History (Last Reviewed 09/24/20 @ 04:[address] Miguel Larry MD) Pure hypercholesterolemia (Chronic) E78.00 Essential hypertension (Chronic) I10 Atherosclerotic heart disease of [place] coronary artery without angina pectoris (Chronic) I25.10 CX 20-30% prox-mid stenosis, LAD 20-30% and 10-20% anterior trunk stenosis, OM1 20-30% tapering ostial stenosis, RCA 20% prox stenosis- per cath 08/14/08 ; LEFT MAIN: Mild luminal irregularities; LEFT ANTERIOR DESCENDING ARTERY: PROX LAD: Mild calcification, Mild luminal irregularities, eccentric: 10 - 25 % Stenosis; MID LAD: Mild luminal irregularities; CIRCUMFLEX ARTERY: Mild luminal irregularities; RIGHT CORONARY ARTERY: PROX RCA: Mild calcification, Mild luminal irregularities, eccentric: 10 - 25 % Stenosis MID RCA: Mild luminal irregularities; AORTIC ROOT: Angiographically normal per cath 05/16/19 Paroxysmal atrial fibrillation (Chronic) I48.0 Diabetes mellitus, type II (Chronic) E11.9 Body mass index (bmi) 29.0-29.9, adult Z68.29 Chest pain R07.9 History of left heart catheterization (LHC) Onset Date: ~05/16/19 Z98.890 CX 20-30% prox-mid stenosis, LAD 20-30% and 10-20% anterior trunk stenosis, OM1 20-30% tapering ostial stenosis, RCA 20% prox stenosis- per cath 08/14/08; LEFT MAIN: Mild luminal irregularities; LEFT ANTERIOR DESCENDING ARTERY: PROX LAD: Mild calcification, Mild luminal irregularities, eccentric: 10 - 25 % Stenosis; MID LAD: Mild luminal irregularities; CIRCUMFLEX ARTERY: Mild luminal irregularities; RIGHT CORONARY ARTERY: PROX RCA: Mild calcification, Mild luminal irregularities, eccentric: 10 - 25 % Stenosis MID RCA: Mild luminal irregularities; AORTIC ROOT: Angiographically normal per cath 05/16/19 CAD (coronary artery disease) (Inactive) I25.10 Wide-complex tachycardia (Inactive) I47.2 Allergies scopolamine Adverse Reaction (Verified 09/23/20 19:01) HALLUCINATIONS SOME TYPE OF IV DYE FOR ULTRA BRYCE Adverse Reaction (Uncoded 09/23/20 19:01) backache Had during ultrasound of his heart Home Medications: Ambulatory Orders Medication Instructions Recorded Tamsulosin HCl [Flomax] 0.4 mg PO DAILY 01/21/16 metoprolol tartrate 50 mg tablet 50 mg PO BID 10/18/18 Amiodarone HCl 200 mg PO DAILY 08/05/20 Aspirin [Aspirin, Baby] 81 mg PO DAILY@0800 tab.chew 08/28/20 insulin glargine 100 unit/mL (3 24 unit SC DAILY ml 09/04/20 mL) subcutaneous pen insulin lispro 100 unit/mL 5 unit SC TIDAC PRN insuln.pen 09/04/20 subcutaneous pen pantoprazole 40 mg tablet,delayed 40 mg PO DAILY tab 09/04/20 release sitagliptin 100 mg tablet 100 mg PO DAILY 09/04/20 Pravastatin Sodium 20 mg PO QHS 09/23/20 Prednisone See Taper PO DAILY 09/23/20 Surgical History: Surgical History (Last Reviewed 09/24/20 @ 04:[address] Miguel Larry MD) History of ERCP Z98.890 Hx laparoscopic cholecystectomy Z90.49 Surgical History: cholecystectomy - Cholecystectomy with ERCP. Psychiatric History: No pertinent psych hx Smoking Status: Never smoker - *Family History Maternal Family History: Family History (Last Reviewed 09/24/20 @ 04:[address] Miguel Larry MD) Father CAD (coronary artery disease) Mother Alzheimers disease Sister Breast cancer History Items: Dementia Paternal Family History: Family History (Last Reviewed 09/24/20 @ 04:[address] Miguel Larry MD) Father CAD (coronary artery disease) Mother Alzheimers disease Sister Breast cancer History Items: Cancer - Father with history of colon cancer., High Cholesterol, Heart Disease, Hypertension Review of Systems Comment: See HPI Patient Problems: Active and Suspected Problems (Last Reviewed 09/24/20 @ 04:[address] Miguel Larry MD) GI bleed (Acute) Anemia (Acute) Objective: All imaging was personally reviewed. Agree with formal interpretation. Biopsy results were also reviewed and mentioned in HPI. Patient did recently have an echocardiogram showing an EF of 65% without diastolic dysfunction or significant valvular disease. - Physical Exam Vitals/I&O's: Vital Signs Temp Pulse Resp BP Pulse Ox 37.0 C 74 19 H 105/53 L 96 09/24/20 03:18 09/24/20 07:00 09/24/20 06:00 09/24/20 06:00 09/24/20 06:00 Oxygen Delivery Method Room Air Weight: 76.3 kg Body Mass Index (BMI) 24.1 Finger Stick Blood Glucose 304 Intake and Output for Last 24 Hours 09/22/20 09/23/20 09/24/20 23:59 23:59 23:59 Intake Total 500 / 500 910 / 910 Balance 500 / 500 910 / 910 General: Alert, Oriented x3, Cooperative, No apparent distress, Well developed, Well nourished, - - No conversational dyspnea HEENT: Atraumatic, PERRLA, EOMI, Normocephalic, - - No scleral icterus or injection noted Oral: Moist Mucosa, No Gingival or Mucosal Lesions/ Ulcerations Neck: Supple, No JVD, No Nodes, Trachea Midline Lungs: Clear to auscultation, Normal air movement, No rhonchi, No wheeze, No rales, - - Symmetric expansion Cardiovascular: Normal S1, Normal S2, No murmurs, Irregular Rate, No rub noted, No Gallop Abdomen: Bowel Sounds Present, Soft, Non Tender, Non-Distended Extremities: No cyanosis, Capillary Refill Less than 3 Seconds, Edema - Lower extremities Skin: No rashes, No breakdown Musculoskeletal: No Tenderness to Palpation of Joints or Extremities Lymphatic: No Cervical, Supraclavicular, or Inguinal Adenopathy Neurological: Cranial nerves II-XII grossly intact, Neuro grossly intact, Motor Exam 5/5 strength throughout Psych/Mental Status: Alert and oriented to time, place, person, mood and affect Microbiology Past 72 Hours 09/23/20 20:07 Stool Stool Occult Blood (SKYLER) - Final Occult Blood Positive Laboratory Results 09/23/20 19:30: WBC 7.0, RBC 2.02 L, Hgb 6.8 L, Hct 21.2 L, MCV 105.0 H, MCH 33.7 H, MCHC 32.1, RDW Std Deviation 77.0 H, RDW Coeff of [place]ano 20.7 H, Plt Count 42 L*, MPV 13.6 H, Immature Gran % (Auto) 1.400 H, Neut % (Auto) 86.8 H, Lymph % (Auto) 5.0 L, [place] % (Auto) 6.1, Eos % (Auto) 0.6, Baso % (Auto) 0.1, Absolute Neuts (auto) 6.1, Absolute Lymphs (auto) 0.35 L, Nucleated RBC % 0.3, Diff Path Review November, Platelet Estimate MKD DEC, Anisocytosis 1+ 09/23/20 19:30: Sodium 144, Potassium 3.5, Chloride 107, Carbon Dioxide 28.0, Anion Gap 9, BUN 33 H, Creatinine 2.92 H, Estim Creat Clear Calc 22.57, Est GFR (MDRD) Af Amer 27 L, Est GFR (MDRD) Non-Af 22 L, BUN/Creatinine Ratio 11.3, Glucose 120 H, Calcium 7.3 L, Total Bilirubin 0.60, AST 8 L, ALT 52, Alkaline Phosphatase 71, Troponin I 0.024, Total Protein 4.6 L, Albumin 1.9 L, Globulin 2.7, Albumin/Globulin Ratio 0.7 L 09/23/20 19:30: Cortisol 17.20 09/23/20 19:30: Immature Plt Fraction 14.2 H, Retic Count 1.32, Immature Retic Fraction 34.70 H, Retic Hgb Equivalent 30.4 09/23/20 19:30: Iron 16 L, TIBC 145 L, Iron Saturation 11.0 L, Ferritin 966 H, Lactate Dehydrogenase 232 09/23/20 19:30: Haptoglobin Pending 09/23/20 19:30: Heparin-induced Plt Ab Pending 09/23/20 20:30: Blood Type A POSITIVE, Antibody Screen TNP, Crossmatch See Detail 09/23/20 20:30: Antibody Screen NEGATIVE 09/24/20 04:45: PT Cancelled, INR Cancelled 09/24/20 04:45: Sodium 144, Potassium 3.8, Chloride 108 H, Carbon Dioxide 29.0, Anion Gap 7, BUN 40 H, Creatinine 3.24 H, Estim Creat Clear Calc 20.34, Est GFR (MDRD) Af Amer 24 L, Est GFR (MDRD) Non-Af 20 L, BUN/Creatinine Ratio 12.3, Glucose 181 H, Calcium 7.1 L 09/24/20 04:45: WBC 5.1, RBC 2.56 L, Hgb 8.1 L, Hct 25.4 L, MCV 99.2 H D, MCH 31.6, MCHC 31.9 L, RDW Std Deviation 72.2 H, RDW Coeff of [place]ano 20.3 H, Plt Count 37 L*, MPV 12.3 H, Immature Gran % (Auto) 1.800 H, Neut % (Auto) 84.2 H, Lymph % (Auto) 6.6 L, [place] % (Auto) 6.0, Eos % (Auto) 1.2, Baso % (Auto) 0.2, Absolute Neuts (auto) 4.3, Absolute Lymphs (auto) 0.34 L, Nucleated RBC % 0.4, Differential Comment SCANNED, Diff Path Review May foll, Platelet Estimate MKD DEC, Anisocytosis 1+, Microcytosis RARE, Macrocytosis RARE 09/24/20 05:40: PT 16.0 H, INR 1.3 Current Medications Acetaminophen (Acetaminophen 325 Mg Tablet) 650 mg PO Q6H PRN PRN PRN Reason: Pain Score 1-10/Temp > 100.7 F Last Admin: 09/24/20 03:25 Dose: 650 mg Documented by: Amiodarone HCl (Amiodarone 200 Mg Tablet) 200 mg PO DAILY CK Dextrose (Dextrose 50%-Water 25 Gm/50 Ml Disp.Syrin) 0 gm IV X1 PRN; Protocol PRN Reason: Hypoglycemia Glucagon (Glucagon 1 Mg/Ml Syringe) 1 mg IM .X1 PRN PRN Reason: Hypoglycemia Pantoprazole Sodium 40 mg/ (Sodium Chloride) 110 mls @ 330 mls/hr IV Q12 CK Last Infusion: 09/24/20 03:50 Dose: Infused Documented by: Sodium Chloride () 250 mls @ 15 mls/hr IV .[id number] PRN PRN Reason: Saline Flush Sodium Chloride () 250 mls @ 15 mls/hr IV .[id number] PRN PRN Reason: Additional IVPB Infusion Insulin Human Lispro (Insulin Lispro 100 Unit/Ml Insuln.Pen) 0 unit SC Q6 CK; Protocol Last Admin: 09/24/20 05:52 Dose: Not Given Documented by: Melatonin (Melatonin 3 Mg Tablet) 3 mg PO QHS PRN PRN PRN Reason: INSOMNIA Pravastatin Sodium (Pravastatin 20 Mg Tablet) 20 mg PO QHS CK Sodium Chloride (0.9% Saline Lock 10 Ml Syringe) 10 - 40 ml IV UD PRN PRN Reason: SALINE FLUSH Tamsulosin HCl (Tamsulosin Hcl 0.4 Mg Capsule) 0.4 mg PO DAILY CK Clinical Impression(s) from Imaging Studies Chest X-Ray 09/23/20 19:56 IMPRESSION: No acute cardiopulmonary process. Electronically Signed: Jeannie Solis MD at 20:27 EST Tel , Service support , Assessment/Plan Active and Suspected Problems (Last Reviewed 09/24/20 @ 04:[address] Miguel Larry MD) GI bleed (Acute) Anemia (Acute) RECOMMENDATIONS: 1. Send HIT antibodies 2. Check orthostatic blood pressures 3. Okay to leave the intensive care unit from my perspective 4. Evaluate dry weight status 5. Possible outpatient colonoscopy 6. Hold on heparin with dialysis pending antibody results IMPRESSIONS: 1. Hypotension Probable etiology of patient's lightheadedness and weakness. Clinical suspicion for hypovolemic hypotension given anemia and response to blood products. However, A. fib with RVR would be another possible etiology. Patient appears to have responded to volume resuscitation. Would hold off on fluids given dialysis status. Patient has been scoped for an upper GI recently showing only polyps. Patient may have an element of bleeding associated with thrombocytopenia. Patient has been seen by hematology as an outpatient by Dr. Mckeon. Patient appears to be hemodynamically stable at this time. Will check orthostatics, but patient can leave the intensive care unit from my perspective. Sepsis would be a consideration, but patient does not have any significant leukocytosis, fever or other constitutional symptoms. Patient's line appears to be clean, dry and intact. Would check pancultures if patient starts to have more hypotension or develops fever. 2. Thrombocytopenia Unclear etiology. Patient may have a consumptive thrombocytopenia secondary to hemodialysis. Patient would also benefit from analysis of HIT antibodies. Would hold off on heparin with dialysis for now, but defer to nephrology. 3. A. fib with RVR Patient should be continued on amiodarone. Will reinitiate metoprolol when patient is more hemodynamically stable. Patient is at high risk for reinitiation of A. fib with RVR without beta-blockade. 4. BPH/diabetes mellitus/advanced age/repeated hospitalization Complicates care, management, recovery and prognosis. Patient likely okay to be initiated on a p.o. diet from my perspective. If able to tolerate a p.o. diet, long-acting insulin can be continued. Would hold on sitagliptin for now. Patient may benefit from therapy services, but defer to primary service. Inpatient E&M: [id number] Init Hosp L3
--- NOTE | 2020-09-24 08:32 | CASEMGMT ---
LW/POA forms scanned into summary tab of echart. Pt's Lucy Gamboa is listed as medical POA. POLO Steward
[2020-09-24] MEDS: Amiodarone 200 MG Tablet PO (08:54)
[2020-09-24] MEDS: Tamsulosin HCl 0.4 MG Capsule PO (08:54)
[2020-09-24 10:11] LABS: Bedside Glucose 127 mg/dL (70-110)
--- NOTE | 2020-09-24 10:41 | CASEMGMT ---
[facility] Readmission Note Previous Admission: 08/25-08/28/20 Diagnosis: expressive aphashia, dysphasia, hemodialysis DC Disposition: Home F/U: patient followed up with physicians and dialysis on dc Current Admission Presentation: hypotension Pt presented with hypotension, weakness and lightheadedness. symptoms started after dialysis. Patient is dialysis patient MWF @ 5:45, no issues with keeping these appointments. PLT count 36, H/H 6.8/21.2, 2 units PRBC infused. positive orthostatics. PT evaluation: independent and does not need further therapy. -DC PLAN: home on discharge. Pt states he has no concerns re: returning home. No home health or assist needed. Ibrahima TALAVERA RN AC
--- NOTE | 2020-09-24 13:41 | CON.PCM_ITS ---
Consultation - Renal 09/24/20 PCP/ Referring MD: Requesting physician: [] Primary care physician: Dr. Guanakito Quarles MD Reason for Consultation:: JAKOB - History of Present Illness History of Present Illness: The patient is a 74 year old M Who was admitted to the hospital with complaints of dizziness. Was found to have severely low hemoglobin at 6.8. 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 Has been on dialysis for just over a month. Just finishing of his steroid taper. Platelets were borderline low. Now significantly worse. Hemoglobin was about 9.3 in July and has been slowly declining despite getting erythropoietin in dialysis. Some urine output. No breathing difficulties. - Allergies Allergies: Allergies scopolamine Adverse Reaction (Verified 09/23/20 19:01) HALLUCINATIONS SOME TYPE OF IV DYE FOR ULTRA BRYCE Adverse Reaction (Uncoded 09/23/20 19:01) backache Had during ultrasound of his heart - Current Medications Current Medications: Current Medications Acetaminophen (Acetaminophen 325 Mg Tablet) 650 mg PO Q6H PRN PRN PRN Reason: Pain Score 1-10/Temp > 100.7 F Last Admin: 09/24/20 03:25 Dose: 650 mg Documented by: Amiodarone HCl (Amiodarone 200 Mg Tablet) 200 mg PO DAILY CK Last Admin: 09/24/20 08:54 Dose: 200 mg Documented by: Dextrose (Dextrose 50%-Water 25 Gm/50 Ml Disp.Syrin) 0 gm IV X1 PRN; Protocol PRN Reason: Hypoglycemia Glucagon (Glucagon 1 Mg/Ml Syringe) 1 mg IM .X1 PRN PRN Reason: Hypoglycemia Pantoprazole Sodium 40 mg/ (Sodium Chloride) 110 mls @ 330 mls/hr IV Q12 CK Last Infusion: 09/24/20 10:40 Dose: Infused Documented by: Sodium Chloride () 250 mls @ 15 mls/hr IV .[id number] PRN PRN Reason: Saline Flush Sodium Chloride () 250 mls @ 15 mls/hr IV .[id number] PRN PRN Reason: Additional IVPB Infusion Insulin Human Lispro (Insulin Lispro 100 Unit/Ml Insuln.Pen) 0 unit SC ACHS [facility]; Protocol Last Admin: 09/24/20 10:40 Dose: Not Given Documented by: Melatonin (Melatonin 3 Mg Tablet) 3 mg PO QHS PRN PRN PRN Reason: INSOMNIA Pravastatin Sodium (Pravastatin 20 Mg Tablet) 20 mg PO QHS [facility] Sodium Chloride (0.9% Saline Lock 10 Ml Syringe) 10 - 40 ml IV UD PRN PRN Reason: SALINE FLUSH Tamsulosin HCl (Tamsulosin Hcl 0.4 Mg Capsule) 0.4 mg PO DAILY [facility] Last Admin: 09/24/20 08:54 Dose: 0.4 mg Documented by: - Past Medical History Past Medical History (Chronic Problems): Chronic Problems (Last Reviewed 09/24/20 @ 04:[address] 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) Pure hypercholesterolemia (Chronic) Essential hypertension (Chronic) Atherosclerotic heart disease of [place] coronary artery without angina pectoris (Chronic) CX 20-30% prox-mid stenosis, LAD 20-30% and 10-20% anterior trunk stenosis, OM1 20-30% tapering ostial stenosis, RCA 20% prox stenosis- per cath 08/14/08; LEFT MAIN: Mild luminal irregularities; LEFT ANTERIOR DESCENDING ARTERY: PROX LAD: Mild calcification, Mild luminal irregularities, eccentric: 10 - 25 % Stenosis; MID LAD: Mild luminal irregularities; CIRCUMFLEX ARTERY: Mild luminal irregularities; RIGHT CORONARY ARTERY: PROX RCA: Mild calcification, Mild luminal irregularities, eccentric: 10 - 25 % Stenosis MID RCA: Mild luminal irregularities; AORTIC ROOT: Angiographically normal per cath 05/16/19 Paroxysmal atrial fibrillation (Chronic) Gastroesophageal reflux disease (Chronic) Diabetes mellitus, type II (Chronic) - Past Surgical History Surgical History: cholecystectomy - Cholecystectomy with ERCP. - Social History Smoking Status: Never smoker - Family History Maternal Family History: Family History (Last Reviewed 09/24/20 @ 04:[address] Miguel Larry MD) Father CAD (coronary artery disease) Mother Alzheimers disease Sister Breast cancer History Items: Dementia Paternal Family History: Family History (Last Reviewed 09/24/20 @ 04:[address] Miguel Larry MD) Father CAD (coronary artery disease) Mother Alzheimers disease Sister Breast cancer History Items: Cancer - Father with history of colon cancer., High Cholesterol, Heart Disease, Hypertension Review of Systems Constitutional: Denies: Chills, Fever, Weight Change HEENT: Denies: Head Aches, Sinus Congestion, Sinus Drainage Cardiovascular: Denies: Chest Pain, Palpitations Respiratory: Denies: Cough, Shortness of breath at rest, Sputum production Gastrointestinal: Denies: Abdominal Pain, Nausea, Vomiting Genitourinary: Denies: Dysuria Musculoskeletal: Denies: Joint Pain, Joint Tenderness Skin: Denies: Rash, Wounds Neurological: Denies: Numbness, Tingling, Focal weakness Psychiatric: Denies: Anxiety, Depression, Homicidal Ideations, Suicidal Ideations Hematologic/ Lymphatic: Denies: Easy Bruising, Easy Bleeding Patient Problems: Active and Suspected Problems (Last Reviewed 09/24/20 @ 04:[address] Miguel Larry MD) GI bleed (Acute) Anemia (Acute) - Physical Exam Vitals/I&O's: Vital Signs Temp Pulse Resp BP Pulse Ox 97.8 F 68 20 H 115/57 L 100 09/24/20 08:00 09/24/20 13:36 09/24/20 13:00 09/24/20 13:00 09/24/20 13:00 Oxygen Delivery Method Room Air Weight: 76.3 kg Body Mass Index (BMI) 24.1 Finger Stick Blood Glucose 304 Orthostatic Vital Signs Start: 09/24/20 06:16 Freq: PRN Status: Active Protocol: Activity Type Activity Date Activity User E-Sign Co-Sign Detail Recorded Client Recorded Date Recorded By Document 09/24/20 08:39 [id number] 09/24/20 08:51 RV 09/24/20 08:39 Orthostatic Vitals Standing -Blood Pressure (90/60-120/80) 98/50 L -Extremity Use Right Arm -Pulse Rate (60-100) 82 Sitting -Blood Pressure (90/60-120/80) 107/54 L -Extremity Use Right Arm -Pulse Rate (60-100) 79 Lying -Blood Pressure (90/60-120/80) 113/54 L -Extremity Use Right Arm -Pulse Rate (60-100) 72 Intake and Output for Last 24 Hours 09/22/20 09/23/20 09/24/20 23:59 23:59 23:59 Intake Total 500 / 500 1020 / 1020 Balance 500 / 500 1020 / 1020 General: Alert, Oriented x3, Cooperative HEENT: Atraumatic, PERRLA, EOMI, Normocephalic Neck: Supple, No JVD, Negative Carotid Bruits Lungs: Clear to auscultation, Normal air movement Cardiovascular: Regular rate, No murmurs Abdomen: Bowel Sounds Present, Soft, Non Tender Extremities: No edema, Capillary Refill Less than 3 Seconds Skin: No rashes, No breakdown Musculoskeletal: No Tenderness to Palpation of Joints or Extremities Neurological: Cranial nerves II-XII grossly intact Psych/Mental Status: Normal Affect, Appropriate Microbiology Past 72 Hours 09/23/20 20:07 Stool Stool Occult Blood (SKYLER) - Final Occult Blood Positive Laboratory Results 09/23/20 19:30: WBC 7.0, RBC 2.02 L, Hgb 6.8 L, Hct 21.2 L, MCV 105.0 H, MCH 33.7 H, MCHC 32.1, RDW Std Deviation 77.0 H, RDW Coeff of Dano 20.7 H, Plt Count 42 L*, MPV 13.6 H, Immature Gran % (Auto) 1.400 H, Neut % (Auto) 86.8 H, Lymph % (Auto) 5.[address] L, [place] % (Auto) 6.1, Eos % (Auto) 0.6, Baso % (Auto) 0.1, Absolute Neuts (auto) 6.1, Absolute Lymphs (auto) 0.35 L, Nucleated RBC % 0.3, Diff Path Review November, Platelet Estimate MKD DEC, Anisocytosis 1+ 09/23/20 19:30: Sodium 144, Potassium 3.5, Chloride 107, Carbon Dioxide 28.0, Anion Gap 9, BUN 33 H, Creatinine 2.92 H, Estim Creat Clear Calc 22.57, Est GFR (MDRD) Af Amer 27 L, Est GFR (MDRD) Non-Af 22 L, BUN/Creatinine Ratio 11.3, Glucose 120 H, Calcium 7.3 L, Total Bilirubin 0.60, AST 8 L, ALT 52, Alkaline Phosphatase 71, Troponin I 0.024, Total Protein 4.6 L, Albumin 1.9 L, Globulin 2.7, Albumin/Globulin Ratio 0.7 L 09/23/20 19:30: Cortisol 17.20 09/23/20 19:30: Immature Plt Fraction 14.2 H, Retic Count 1.32, Immature Retic Fraction 34.70 H, Retic Hgb Equivalent 30.4 09/23/20 19:30: Iron 16 L, TIBC 145 L, Iron Saturation 11.0 L, Ferritin 966 H, Lactate Dehydrogenase 232 09/23/20 19:30: Haptoglobin Pending 09/23/20 19:30: Heparin-induced Plt Ab Pending 09/23/20 20:30: Blood Type A POSITIVE, Antibody Screen TNP, Crossmatch See Detail 09/23/20 20:30: Antibody Screen NEGATIVE 09/24/20 04:45: PT Cancelled, INR Cancelled 09/24/20 04:45: Sodium 144, Potassium 3.8, Chloride 108 H, Carbon Dioxide 29.0, Anion Gap 7, BUN 40 H, Creatinine 3.24 H, Estim Creat Clear Calc 20.34, Est GFR (MDRD) Af Amer 24 L, Est GFR (MDRD) Non-Af 20 L, BUN/Creatinine Ratio 12.3, Glucose 181 H, Calcium 7.1 L 09/24/20 04:45: WBC 5.1, RBC 2.56 L, Hgb 8.1 L, Hct 25.4 L, MCV 99.2 H D, MCH 31.6, MCHC 31.9 L, RDW Std Deviation 72.2 H, RDW Coeff of [place]ano 20.3 H, Plt Count 37 L*, MPV 12.3 H, Immature Gran % (Auto) 1.800 H, Neut % (Auto) 84.2 H, Lymph % (Auto) 6.[address] L, [place] % (Auto) 6.0, Eos % (Auto) 1.2, Baso % (Auto) 0.2, Absolute Neuts (auto) 4.3, Absolute Lymphs (auto) 0.34 L, Nucleated RBC % 0.4, Differential Comment SCANNED, Diff Path Review Reviewed, Platelet Estimate MKD DEC, Anisocytosis 1+, Microcytosis RARE, Macrocytosis RARE 09/24/20 05:40: PT 16.0 H, INR 1.3 09/24/20 10:04: POC Glucose 127 H Current Medications Acetaminophen (Acetaminophen 325 Mg Tablet) 650 mg PO Q6H PRN PRN PRN Reason: Pain Score 1-10/Temp > 100.7 F Last Admin: 09/24/20 03:25 Dose: 650 mg Documented by: Amiodarone HCl (Amiodarone 200 Mg Tablet) 200 mg PO DAILY [facility] Last Admin: 09/24/20 08:54 Dose: 200 mg Documented by: Dextrose (Dextrose 50%-Water 25 Gm/50 Ml Disp.Syrin) 0 gm IV X1 PRN; Protocol PRN Reason: Hypoglycemia Glucagon (Glucagon 1 Mg/Ml Syringe) 1 mg IM .X1 PRN PRN Reason: Hypoglycemia Pantoprazole Sodium 40 mg/ (Sodium Chloride) 110 mls @ 330 mls/hr IV Q12 [facility] Last Infusion: 09/24/20 10:40 Dose: Infused Documented by: Sodium Chloride () 250 mls @ 15 mls/hr IV .[id number] PRN PRN Reason: Saline Flush Sodium Chloride () 250 mls @ 15 mls/hr IV .[id number] PRN PRN Reason: Additional IVPB Infusion Insulin Human Lispro (Insulin Lispro 100 Unit/Ml Insuln.Pen) 0 unit SC ACHS [facility]; Protocol Last Admin: 09/24/20 10:40 Dose: Not Given Documented by: Melatonin (Melatonin 3 Mg Tablet) 3 mg PO QHS PRN PRN PRN Reason: INSOMNIA Pravastatin Sodium (Pravastatin 20 Mg Tablet) 20 mg PO QHS [facility] Sodium Chloride (0.9% Saline Lock 10 Ml Syringe) 10 - 40 ml IV UD PRN PRN Reason: SALINE FLUSH Tamsulosin HCl (Tamsulosin Hcl 0.4 Mg Capsule) 0.4 mg PO DAILY [facility] Last Admin: 09/24/20 08:54 Dose: 0.4 mg Documented by: Assessment/Plan All Active Problems (Last Reviewed 09/24/20 @ 04:[address] Miguel Larry MD) GI bleed (Acute) Anemia (Acute) Acute renal failure on dialysis. Dialysis tomorrow as per schedule. Anemia. Reviewed lab from dialysis unit. Hemoglobin was about 9.3 in July. In August it was around 7.3. He has been on long-acting erythropoietin. Hemoglobin on admission was 6.8. Iron saturations which were more than 30% last month have dropped to less than 20%. Most likely he is losing blood. Stool for occult blood is positive. He also has extensive bruising all over the body. We'll start IV iron with dialysis. Also increase erythropoietin in dialysis as outpatient. Thrombocytopenia. Borderline before no significantly worse. He has not been getting heparin with dialysis as bolus. He does get heparin for closing the catheter. From now on his catheters will be closed with sodium citrate.
--- NOTE | 2020-09-24 14:48 | PCM.PN.HOSP ---
Patient Problems: Active and Suspected Problems (Last Reviewed 09/24/20 @ 04:[address] Miguel Larry MD) GI bleed (Acute) Anemia (Acute) Subjective: Feeling better after being transfused 2 units. No issues overnight. Stool is brown but he did test positive for occult blood. Vitals/I&O's: Vital Signs Temp Pulse Resp BP Pulse Ox 97.8 F 68 20 H 115/57 L 100 09/24/20 08:00 09/24/20 13:36 09/24/20 13:00 09/24/20 13:00 09/24/20 13:00 Oxygen Delivery Method Room Air Weight: 168 lb 3.403 oz Body Mass Index (BMI) 24.1 Finger Stick Blood Glucose 304 Orthostatic Vital Signs Start: 09/24/20 06:16 Freq: PRN Status: Active Protocol: Activity Type Activity Date Activity User E-Sign Co-Sign Detail Recorded Client Recorded Date Recorded By Document 09/24/20 08:39 RV [id number] 09/24/20 08:51 RV 09/24/20 08:39 Orthostatic Vitals Standing -Blood Pressure (90/60-120/80) 98/50 L -Extremity Use Right Arm -Pulse Rate (60-100) 82 Sitting -Blood Pressure (90/60-120/80) 107/54 L -Extremity Use Right Arm -Pulse Rate (60-100) 79 Lying -Blood Pressure (90/60-120/80) 113/54 L -Extremity Use Right Arm -Pulse Rate (60-100) 72 Intake and Output for Last 24 Hours 09/22/20 09/23/20 09/24/20 23:59 23:59 23:59 Intake Total 500 / 500 1020 / 1020 Balance 500 / 500 1020 / 1020 General: Alert, Oriented x3, Cooperative, No apparent distress HEENT: Atraumatic, PERRLA, EOMI, Normocephalic Oral: Moist Mucosa Neck: Supple, No JVD Lungs: Clear to auscultation, Normal air movement, No rhonchi, No wheeze, No rales Cardiovascular: Regular rate, Regular Rhythm, Normal S1, Normal S2, No murmurs Abdomen: Soft, Non Tender, Non-Distended, No Hepato-splenomegaly Extremities: No edema, Capillary Refill Less than 3 Seconds Skin: No rashes, No breakdown Neurological: Neuro grossly intact, Sensory exam intact to light touch and pain Psych/Mental Status: Normal Affect, Appropriate Microbiology Past 72 Hours 09/23/20 20:07 Stool Stool Occult Blood (SKYLER) - Final Occult Blood Positive Laboratory Results 09/23/20 19:30: WBC 7.0, RBC 2.02 L, Hgb 6.8 L, Hct 21.2 L, MCV 105.0 H, MCH 33.7 H, MCHC 32.1, RDW Std Deviation 77.0 H, RDW Coeff of Dano 20.7 H, Plt Count 42 L*, MPV 13.6 H, Immature Gran % (Auto) 1.400 H, Neut % (Auto) 86.8 H, Lymph % (Auto) 5.0 L, [place] % (Auto) 6.1, Eos % (Auto) 0.6, Baso % (Auto) 0.1, Absolute Neuts (auto) 6.1, Absolute Lymphs (auto) 0.35 L, Nucleated RBC % 0.3, Diff Path Review November foll, Platelet Estimate MKD DEC, Anisocytosis 1+ 09/23/20 19:30: Sodium 144, Potassium 3.5, Chloride 107, Carbon Dioxide 28.0, Anion Gap 9, BUN 33 H, Creatinine 2.92 H, Estim Creat Clear Calc 22.57, Est GFR (MDRD) Af Amer 27 L, Est GFR (MDRD) Non-Af 22 L, BUN/Creatinine Ratio 11.3, Glucose 120 H, Calcium 7.3 L, Total Bilirubin 0.60, AST 8 L, ALT 52, Alkaline Phosphatase 71, Troponin I 0.024, Total Protein 4.6 L, Albumin 1.9 L, Globulin 2.7, Albumin/Globulin Ratio 0.7 L 09/23/20 19:30: Cortisol 17.20 09/23/20 19:30: Immature Plt Fraction 14.2 H, Retic Count 1.32, Immature Retic Fraction 34.70 H, Retic Hgb Equivalent 30.4 09/23/20 19:30: Iron 16 L, TIBC 145 L, Iron Saturation 11.0 L, Ferritin 966 H, Lactate Dehydrogenase 232 09/23/20 19:30: Haptoglobin Pending 09/23/20 19:30: Heparin-induced Plt Ab Pending 09/23/20 20:30: Blood Type A POSITIVE, Antibody Screen TNP, Crossmatch See Detail 09/23/20 20:30: Antibody Screen NEGATIVE 09/24/20 04:45: PT Cancelled, INR Cancelled 09/24/20 04:45: Sodium 144, Potassium 3.8, Chloride 108 H, Carbon Dioxide 29.0, Anion Gap 7, BUN 40 H, Creatinine 3.24 H, Estim Creat Clear Calc 20.34, Est GFR (MDRD) Af Amer 24 L, Est GFR (MDRD) Non-Af 20 L, BUN/Creatinine Ratio 12.3, Glucose 181 H, Calcium 7.1 L 09/24/20 04:45: WBC 5.1, RBC 2.56 L, Hgb 8.1 L, Hct 25.4 L, MCV 99.2 H D, MCH 31.6, MCHC 31.9 L, RDW Std Deviation 72.2 H, RDW Coeff of [place]ano 20.3 H, Plt Count 37 L*, MPV 12.3 H, Immature Gran % (Auto) 1.800 H, Neut % (Auto) 84.2 H, Lymph % (Auto) 6.6 L, [place] % (Auto) 6.0, Eos % (Auto) 1.2, Baso % (Auto) 0.2, Absolute Neuts (auto) 4.3, Absolute Lymphs (auto) 0.34 L, Nucleated RBC % 0.4, Differential Comment SCANNED, Diff Path Review Reviewed, Platelet Estimate MKD DEC, Anisocytosis 1+, Microcytosis RARE, Macrocytosis RARE 09/24/20 05:40: PT 16.0 H, INR 1.3 09/24/20 10:04: POC Glucose 127 H Current Medications Acetaminophen (Acetaminophen 325 Mg Tablet) 650 mg PO Q6H PRN PRN PRN Reason: Pain Score 1-10/Temp > 100.7 F Last Admin: 09/24/20 03:25 Dose: 650 mg Documented by: Amiodarone HCl (Amiodarone 200 Mg Tablet) 200 mg PO DAILY [facility] Last Admin: 09/24/20 08:54 Dose: 200 mg Documented by: Dextrose (Dextrose 50%-Water 25 Gm/50 Ml Disp.Syrin) 0 gm IV X1 PRN; Protocol PRN Reason: Hypoglycemia Glucagon (Glucagon 1 Mg/Ml Syringe) 1 mg IM .X1 PRN PRN Reason: Hypoglycemia Pantoprazole Sodium 40 mg/ (Sodium Chloride) 110 mls @ 330 mls/hr IV Q12 [facility] Last Infusion: 09/24/20 10:40 Dose: Infused Documented by: Sodium Chloride () 250 mls @ 15 mls/hr IV .[id number] PRN PRN Reason: Saline Flush Sodium Chloride () 250 mls @ 15 mls/hr IV .[id number] PRN PRN Reason: Additional IVPB Infusion Insulin Human Lispro (Insulin Lispro 100 Unit/Ml Insuln.Pen) 0 unit SC ACHS [facility]; Protocol Last Admin: 09/24/20 10:40 Dose: Not Given Documented by: Melatonin (Melatonin 3 Mg Tablet) 3 mg PO QHS PRN PRN PRN Reason: INSOMNIA Pravastatin Sodium (Pravastatin 20 Mg Tablet) 20 mg PO QHS [facility] Sodium Chloride (0.9% Saline Lock 10 Ml Syringe) 10 - 40 ml IV UD PRN PRN Reason: SALINE FLUSH Tamsulosin HCl (Tamsulosin Hcl 0.4 Mg Capsule) 0.4 mg PO DAILY [facility] Last Admin: 09/24/20 08:54 Dose: 0.4 mg Documented by: STROKE Vital Signs/Narrative: Vital Signs Pulse Resp BP Pulse Ox 09/24/20 13:36 68 09/24/20 13:00 72 20 H 115/57 L 100 09/24/20 12:00 67 17 110/49 L 100 09/24/20 11:00 72 17 112/52 L 99 Medical Necessity - Tobacco Use Smoking Status: Never smoker Assessment/Plan All Active Problems (Last Reviewed 09/24/20 @ 04:[address] Miguel Larry MD) GI bleed (Acute) Anemia (Acute) 1. Hypovolemic hypotension/acute on chronic anemia/acute on chronic thrombocytopenia/HTN/HLD/A. fib with RVR -Since he went into renal failure 6 months ago his anemia has stabilized at around a hemoglobin of 8. He did have a normal hemoglobin prior to January 2020. 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 If his heart rate increases or his blood pressure increases can restart his metoprolol at maybe half the dose -We will continue to monitor his CBC for his hemoglobin and his thrombocytopenia -Continue with statin -We will check a HIT panel since he received his heparin with his dialysis 2. End-stage renal disease secondary to DM 2 -Currently on dialysis MW -Appreciate nephrology's assistance -They will manage his catheters now with sodium citrate instead of heparin -Continue with his home insulin regimen, Accu-Cheks AC at bedtime. Sliding scale insulin 3. GERD -Stable -Continue with PPI 4. BPH -Stable -Continue with Flomax DVT: SCDs Inpatient E&M: [id number] Subs Hosp L2
--- NOTE | 2020-09-24 15:28 | US_ITS ---
STUDY: ABDOMINAL ULTRASOUND - RIGHT UPPER QUADRANT REASON FOR VISIT: Male, 74 years old Thrombocytopenia - TECHNIQUE: Ultrasound evaluation of the right upper quadrant was performed with real-time and static [place]-scale imaging. TECHNICAL QUALITY: Adequate. COMPARISON: Comparison is made with prior study dated 09/15/2015. FINDINGS: Liver: The liver measures 17 cm. There is normal echogenicity of the liver. The bile ducts are within normal limits. There is hepatic color flow. The direction of portal flow is hepatopetal. There is no demonstrated mass lesion. Gallbladder: The patient is status post cholecystectomy. Common Bile Duct (C.B.D.): The common bile duct measures 5.7 mm. Pancreas: There is a 4.8 cm x 3.9 cm x 1.3 cm complex cystic mass in the body and tail portion of the pancreas. This may represent a dilated pancreatic duct and possible pseudocyst. Right Kidney: Normal size of the right kidney. The right kidney measures 12.5 cm x 4.9 cm x 5 cm. Normal renal cortex. The right cortex measures 1.6 cm. There is no demonstrated renal mass or cyst. 5 mm nonobstructive intrarenal calculus. IMPRESSION: 4.8 cm x 3.9 cm on 0.3 cm complex cystic mass in the body and tail portion of the pancreas as described. Correlation with CT scan is recommended. Electronically Signed: Stanton Betancourt MD at 8:52 EST , Service support , INDICATION: Thrombocytopenia - EXAMINATION: Ultrasound US Abdomen Limited (quadrant) TECHNIQUE: [place] scale and color doppler imaging was performed of the spleen. COMPARISON: None. FINDINGS: The spleen measures 9.3 cm x 4.85 x 4.9 cm. The spleen is homogeneous. Minimal amount of free fluid surrounding the spleen. US/Liver IMPRESSION: Negative splenic ultrasound. Minimal amount of free fluid surrounding the spleen. Electronically Signed: Stanton Betancourt MD at 8:53 EST , Service support ,
[2020-09-24 15:55] LABS: Bedside Glucose 334 mg/dL (70-110)
[2020-09-24] MEDS: Insulin Lispro 100 UNIT/ML INSULN.PEN SC ×3 (15:56→21:30)
[2020-09-24] MEDS: Calcium Carbonate 500 MG Tablet 1000 MG PO (21:29)
[2020-09-24] MEDS: Pravastatin 20 MG Tablet PO (21:30)
[2020-09-24] MEDS: 0.9% Saline Lock 10 ML Syringe IV (21:30)
[2020-09-24 22:00] LABS: Bedside Glucose 151 mg/dL (70-110)
[2020-09-25] VITALS (20 sets, daily range): BP systolic 92–126; BP diastolic 47–83; PULSE 75–130; RESP 16–18; TEMP 36.7–37.3; O2SAT 95–100
[2020-09-25] MEDS: Dextrose 50%-Water 25 GM/50 ML DISP.SYRIN IV ×2 (00:18→03:31)
[2020-09-25] MEDS: 0.9% Saline Lock 10 ML Syringe IV ×6 (00:21→22:34)
--- NOTE | 2020-09-25 00:43 | NURSING ---
Pt called around 0015 and said he felt like his blood sugar was low. This RN checked pt's blood sugar and it was 38. Pt is NPO currently d/t liver/spleen US later today. 1 amp D50 given, blood sugar 131 upon recheck 20 minutes later. notified and aware. MAGGIE Montejo.
[2020-09-25 00:46] LABS: Bedside Glucose 38 mg/dL (70-110)
[2020-09-25 00:46] LABS: Bedside Glucose 131 mg/dL (70-110)
--- NOTE | 2020-09-25 03:48 | PCM.PN.BLA ---
Progress Note Patient with 2 episodes of hypoglycemia requiring D50. Patient is dialysis patient. Patient is be n.p.o. for test. We will put patient on D5W at 50 MLS per hour for 500 MLS. Stop long-acting insulin. Put parameters on prandial insulin. STROKE Vital Signs/Narrative: Vital Signs Pulse 09/25/20 03:00 75
[2020-09-25 04:05] LABS: Bedside Glucose 141 mg/dL (70-110)
[2020-09-25 04:05] LABS: Bedside Glucose 42 mg/dL (70-110)
--- NOTE | 2020-09-25 04:12 | NURSING ---
Blood sugar checked again around 0330, pt reported he still felt weak and shaky. Blood sugar was back down to 42, another amp of D50 IV given. 141 upon recheck after D50. notified, D5W @ 50 mL/hr ordered. MAGGIE Montejo.
[2020-09-25] MEDS: dilTIAZem 25 MG/5 ML Vial 10 MG IV BOLUS (05:00)
[2020-09-25 05:24] LABS: Absolute Lymphocyte Count 0.28 X10^3/uL (0.83-4.51); Absolute Neutrophil Count 3.8 X10^3/uL (2.0-7.7); Eosinophil# 0.03 X10^3/uL; Eosinophils% 0.7 % (0-5); Hemoglobin 7.8 g/dL (13.0-16.5); Lymphocyte # 0.28 X10^3/ul (4.0); Lymphocyte % 6.1 % (19-41); Mean Corp Hgb Conc 32.5 g/dL (32-36); Mean Corpuscular Hgb 31.8 pg (27.0-32.0); Mean Platelet Vol. 12.9 fl (6.2-12.0); Monocyte# 0.44 X10^3/uL; Monocyte% 9.6 % (0-10); NRBC Flagged by Analyzer 0 % (0-5); Neutrophil # 3.79 X10^3/uL (2.7-7.7); Neutrophil % 82.5 % (47-70); POSITIVE COUNT YES; POSITIVE DIFFERENTIAL YES; POSITIVE MORPHOLOGY YES; RBC Distribution Width CV 20.2 % (11.6-14.6); RBC Distribution Width SD 70.6 fl (35.1-43.9); Red Blood Count 2.45 M/mm3 (4.6-6.2); White Blood Count 4.6 K/mm3 (4.4-11.0)
[2020-09-25 05:29] LABS: Platelet Count 39 K/mm3 (150-450)
[2020-09-25 05:30] LABS: Differential Indicated SCAN CRITERIA MET
[2020-09-25 05:40] LABS: Anion Gap 8 (5-15); BUN 54 mg/dL (7-18); BUN/Creat Ratio 13.3 RATIO (10-20); Calcium,Total 7.1 mg/dL (8.5-10.1); Chloride 108 mmol/L (98-107); Creatinine, Serum 4.06 mg/dL (0.70-1.30); EST Glomerular Filtration Rate 15 mL/min (>60); Est Glom Filt Rate - Afr Amer 19 mL/min (>60); Estimated Creatinine Clearance 16.23 ml/min; Glucose 103 mg/dL (74-106); Potassium 3.1 mmol/L (3.5-5.1); Sodium Level 142 mmol/L (136-145)
--- NOTE | 2020-09-25 05:41 | PCM.PN.BLA ---
Progress Note Patient with sustained A. fib RVR. Cardizem 10 mg IV x1 given. Ventricular rates remained rapid. Will give metoprolol 5 mg IV x1. And then metoprolol at a lesser dose than home dose per review of hetal EATON's notes. STROKE Vital Signs/Narrative: Vital Signs Temp Pulse Resp BP BP Pulse Ox 09/25/20 05:03 110 H 92/53 L 09/25/20 04:59 128 H 115/67 09/25/20 03:40 98.6 F 77 18 126/51 H 95 09/25/20 03:00 75
[2020-09-25 05:52] LABS: Differential Comment SCANNED; Platelet Estimate MKD DEC (ADEQ)
[2020-09-25 05:53] LABS: Hypochromasia 1+
[2020-09-25 05:54] LABS: Anisocytosis 1+; Macrocytosis 1+; Ovalocyte RARE; Schistocytes RARE
[2020-09-25] MEDS: Metoprolol Tartrate 5 MG/5 ML Vial IV ×2 (05:54→14:07)
[2020-09-25] MEDS: Metoprolol Tartrate 50 MG Tablet 25 MG PO (05:54)
[2020-09-25 06:46] LABS: Bedside Glucose 88 mg/dL (70-110)
[2020-09-25 06:46] LABS: Bedside Glucose 79 mg/dL (70-110)
[2020-09-25 07:00] LABS: Bedside Glucose 75 mg/dL (70-110)
--- NOTE | 2020-09-25 07:09 | PCM.PN.INT ---
Subjective: Patient transferred out of the intensive care unit yesterday. Patient with significant issues overnight associated with hypoglycemia and A. fib with RVR. Patient was reinitiated on baseline metoprolol. Patient also had received some Cardizem and D50. Patient was resting comfortably this morning with no complaints. No bleeding has been reported. General: Alert, Cooperative, No apparent distress, - - No conversational dyspnea HEENT: Atraumatic, PERRLA, EOMI, Normocephalic, - - No scleral icterus or injection noted Oral: Moist Mucosa, No Gingival or Mucosal Lesions/ Ulcerations Neck: Supple, No JVD, No Nodes, Trachea Midline Lungs: No rhonchi, No wheeze, No rales, Diminished, - - Fair effort Cardiovascular: Normal S1, Normal S2, No murmurs, Irregular Rate, No rub noted, No Gallop, Tachycardic, - - A. fib with RVR noted on telemetry Abdomen: Bowel Sounds Present, Soft, Non Tender, Non-Distended Extremities: No clubbing, No cyanosis, Edema Skin: - - No change compared to previous Musculoskeletal: No Tenderness to Palpation of Joints or Extremities Lymphatic: No Cervical, Supraclavicular, or Inguinal Adenopathy Neurological: Cranial nerves II-XII grossly intact, Neuro grossly intact, Motor Exam 5/5 strength throughout Psych/Mental Status: Alert and oriented to time, place, person, mood and affect Vital Signs Temp Pulse Resp BP Pulse Ox 37.0 C 110 H 18 106/61 95 09/25/20 03:40 09/25/20 06:23 09/25/20 03:40 09/25/20 06:23 09/25/20 03:40 Oxygen Delivery Method Room Air Weight: 78.2 kg Body Mass Index (BMI) 24.1 Finger Stick Blood Glucose 304 Intake and Output for Last 24 Hours 09/23/20 09/24/20 09/25/20 23:59 23:59 23:59 Intake Total 500 / 500 1374.5 / 1374.5 0 / 0 Output Total 0 / 0 Balance 500 / 500 1374.5 / 1374.5 0 / 0 Labs (Last 48 Hours) 09/23/20 09/23/20 09/23/20 19:30 19:30 19:30 WBC 7.0 RBC 2.02 L Hgb 6.8 L Hct 21.2 L MCV 105.0 H MCH 33.7 H MCHC 32.1 RDW Std Deviation 77.0 H RDW Coeff of [place]ano 20.7 H Plt Count 42 L* MPV 13.6 H Immature Gran % (Auto) 1.400 H Neut % (Auto) 86.8 H Lymph % (Auto) 5.0 L [place] % (Auto) 6.1 Eos % (Auto) 0.6 Baso % (Auto) 0.1 Absolute Neuts (auto) 6.1 Absolute Lymphs (auto) 0.35 L Nucleated RBC % 0.3 Differential Comment Diff Path Review May foll Platelet Estimate MKD DEC Immature Plt Fraction Hypochromasia Anisocytosis 1+ Microcytosis Macrocytosis Ovalocytes Schistocytes Retic Count Immature Retic Fraction Retic Hgb Equivalent Haptoglobin PT INR Sodium 144 Potassium 3.5 Chloride 107 Carbon Dioxide 28.0 Anion Gap 9 BUN 33 H Creatinine 2.92 H Estim Creat Clear Calc 22.57 Est GFR (MDRD) Af Amer 27 L Est GFR (MDRD) Non-Af 22 L BUN/Creatinine Ratio 11.3 Glucose 120 H Calcium 7.3 L Iron TIBC Iron Saturation Ferritin Total Bilirubin 0.60 AST 8 L ALT 52 Alkaline Phosphatase 71 Lactate Dehydrogenase Troponin I 0.024 Total Protein 4.6 L Albumin 1.9 L Globulin 2.7 Albumin/Globulin Ratio 0.7 L Cortisol 17.20 Heparin-induced Plt Ab POC Glucose Blood Type Antibody Screen Crossmatch 09/23/20 09/23/20 09/23/20 19:30 19:30 19:30 WBC RBC Hgb Hct MCV MCH MCHC RDW Std Deviation RDW Coeff of [place] Plt Count MPV Immature Gran % (Auto) Neut % (Auto) Lymph % (Auto) [place] % (Auto) Eos % (Auto) Baso % (Auto) Absolute Neuts (auto) Absolute Lymphs (auto) Nucleated RBC % Differential Comment Diff Path Review Platelet Estimate Immature Plt Fraction 14.2 H Hypochromasia Anisocytosis Microcytosis Macrocytosis Ovalocytes Schistocytes Retic Count 1.32 Immature Retic Fraction 34.70 H Retic Hgb Equivalent 30.4 Haptoglobin Pending PT INR Sodium Potassium Chloride Carbon Dioxide Anion Gap BUN Creatinine Estim Creat Clear Calc Est GFR (MDRD) Af Amer Est GFR (MDRD) Non-Af BUN/Creatinine Ratio Glucose Calcium Iron 16 L TIBC 145 L Iron Saturation 11.0 L Ferritin 966 H Total Bilirubin AST ALT Alkaline Phosphatase Lactate Dehydrogenase 232 Troponin I Total Protein Albumin Globulin Albumin/Globulin Ratio Cortisol Heparin-induced Plt Ab POC Glucose Blood Type Antibody Screen Crossmatch 09/23/20 09/23/20 09/23/20 19:30 20:30 20:30 WBC RBC Hgb Hct MCV MCH MCHC RDW Std Deviation RDW Coeff of [place] Plt Count MPV Immature Gran % (Auto) Neut % (Auto) Lymph % (Auto) [place] % (Auto) Eos % (Auto) Baso % (Auto) Absolute Neuts (auto) Absolute Lymphs (auto) Nucleated RBC % Differential Comment Diff Path Review Platelet Estimate Immature Plt Fraction Hypochromasia Anisocytosis Microcytosis Macrocytosis Ovalocytes Schistocytes Retic Count Immature Retic Fraction Retic Hgb Equivalent Haptoglobin PT INR Sodium Potassium Chloride Carbon Dioxide Anion Gap BUN Creatinine Estim Creat Clear Calc Est GFR (MDRD) Af Amer Est GFR (MDRD) Non-Af BUN/Creatinine Ratio Glucose Calcium Iron TIBC Iron Saturation Ferritin Total Bilirubin AST ALT Alkaline Phosphatase Lactate Dehydrogenase Troponin I Total Protein Albumin Globulin Albumin/Globulin Ratio Cortisol Heparin-induced Plt Ab Pending POC Glucose Blood Type A POSITIVE Antibody Screen TNP NEGATIVE Crossmatch See Detail 09/24/20 09/24/20 09/24/20 04:45 04:45 04:45 WBC 5.1 RBC 2.56 L Hgb 8.1 L Hct 25.4 L MCV 99.2 H D MCH 31.6 MCHC 31.9 L RDW Std Deviation 72.2 H RDW Coeff of [place]ano 20.3 H Plt Count 37 L* MPV 12.3 H Immature Gran % (Auto) 1.800 H Neut % (Auto) 84.2 H Lymph % (Auto) 6.6 L [place] % (Auto) 6.0 Eos % (Auto) 1.2 Baso % (Auto) 0.2 Absolute Neuts (auto) 4.3 Absolute Lymphs (auto) 0.34 L Nucleated RBC % 0.4 Differential Comment SCANNED Diff Path Review Reviewed Platelet Estimate MKD DEC Immature Plt Fraction Hypochromasia Anisocytosis 1+ Microcytosis RARE Macrocytosis RARE Ovalocytes Schistocytes Retic Count Immature Retic Fraction Retic Hgb Equivalent Haptoglobin PT Cancelled INR Cancelled Sodium 144 Potassium 3.8 Chloride 108 H Carbon Dioxide 29.0 Anion Gap 7 BUN 40 H Creatinine 3.24 H Estim Creat Clear Calc 20.34 Est GFR (MDRD) Af Amer 24 L Est GFR (MDRD) Non-Af 20 L BUN/Creatinine Ratio 12.3 Glucose 181 H Calcium 7.1 L Iron TIBC Iron Saturation Ferritin Total Bilirubin AST ALT Alkaline Phosphatase Lactate Dehydrogenase Troponin I Total Protein Albumin Globulin Albumin/Globulin Ratio Cortisol Heparin-induced Plt Ab POC Glucose Blood Type Antibody Screen Crossmatch 09/24/20 09/24/20 09/24/20 05:40 10:04 15:46 WBC RBC Hgb Hct MCV MCH MCHC RDW Std Deviation RDW Coeff of [place] Plt Count MPV Immature Gran % (Auto) Neut % (Auto) Lymph % (Auto) [place] % (Auto) Eos % (Auto) Baso % (Auto) Absolute Neuts (auto) Absolute Lymphs (auto) Nucleated RBC % Differential Comment Diff Path Review Platelet Estimate Immature Plt Fraction Hypochromasia Anisocytosis Microcytosis Macrocytosis Ovalocytes Schistocytes Retic Count Immature Retic Fraction Retic Hgb Equivalent Haptoglobin PT 16.0 H INR 1.3 Sodium Potassium Chloride Carbon Dioxide Anion Gap BUN Creatinine Estim Creat Clear Calc Est GFR (MDRD) Af Amer Est GFR (MDRD) Non-Af BUN/Creatinine Ratio Glucose Calcium Iron TIBC Iron Saturation Ferritin Total Bilirubin AST ALT Alkaline Phosphatase Lactate Dehydrogenase Troponin I Total Protein Albumin Globulin Albumin/Globulin Ratio Cortisol Heparin-induced Plt Ab POC Glucose 127 H 334 H Blood Type Antibody Screen Crossmatch 09/24/20 09/25/20 09/25/20 21:27 00:16 00:40 WBC RBC Hgb Hct MCV MCH MCHC RDW Std Deviation RDW Coeff of [place]ano Plt Count MPV Immature Gran % (Auto) Neut % (Auto) Lymph % (Auto) [place] % (Auto) Eos % (Auto) Baso % (Auto) Absolute Neuts (auto) Absolute Lymphs (auto) Nucleated RBC % Differential Comment Diff Path Review Platelet Estimate Immature Plt Fraction Hypochromasia Anisocytosis Microcytosis Macrocytosis Ovalocytes Schistocytes Retic Count Immature Retic Fraction Retic Hgb Equivalent Haptoglobin PT INR Sodium Potassium Chloride Carbon Dioxide Anion Gap BUN Creatinine Estim Creat Clear Calc Est GFR (MDRD) Af Amer Est GFR (MDRD) Non-Af BUN/Creatinine Ratio Glucose Calcium Iron TIBC Iron Saturation Ferritin Total Bilirubin AST ALT Alkaline Phosphatase Lactate Dehydrogenase Troponin I Total Protein Albumin Globulin Albumin/Globulin Ratio Cortisol Heparin-induced Plt Ab POC Glucose 151 H 38 L* 131 H Blood Type Antibody Screen Crossmatch 09/25/20 09/25/20 09/25/20 03:28 03:55 04:54 WBC 4.6 RBC 2.45 L Hgb 7.8 L Hct 24.0 L MCV 98.0 H MCH 31.8 MCHC 32.5 RDW Std Deviation 70.6 H RDW Coeff of [place]ano 20.2 H Plt Count 39 L* MPV 12.9 H Immature Gran % (Auto) 1.100 H Neut % (Auto) 82.5 H Lymph % (Auto) 6.1 L [place] % (Auto) 9.6 Eos % (Auto) 0.7 Baso % (Auto) 0.0 Absolute Neuts (auto) 3.8 Absolute Lymphs (auto) 0.28 L Nucleated RBC % 0 Differential Comment SCANNED Diff Path Review May foll Platelet Estimate MKD DEC Immature Plt Fraction Hypochromasia 1+ Anisocytosis 1+ Microcytosis Macrocytosis 1+ Ovalocytes RARE Schistocytes RARE Retic Count Immature Retic Fraction Retic Hgb Equivalent Haptoglobin PT INR Sodium Potassium Chloride Carbon Dioxide Anion Gap BUN Creatinine Estim Creat Clear Calc Est GFR (MDRD) Af Amer Est GFR (MDRD) Non-Af BUN/Creatinine Ratio Glucose Calcium Iron TIBC Iron Saturation Ferritin Total Bilirubin AST ALT Alkaline Phosphatase Lactate Dehydrogenase Troponin I Total Protein Albumin Globulin Albumin/Globulin Ratio Cortisol Heparin-induced Plt Ab POC Glucose 42 L* 141 H Blood Type Antibody Screen Crossmatch 09/25/20 09/25/20 09/25/20 04:54 05:28 06:21 WBC RBC Hgb Hct MCV MCH MCHC RDW Std Deviation RDW Coeff of [place]ano Plt Count MPV Immature Gran % (Auto) Neut % (Auto) Lymph % (Auto) [place] % (Auto) Eos % (Auto) Baso % (Auto) Absolute Neuts (auto) Absolute Lymphs (auto) Nucleated RBC % Differential Comment Diff Path Review Platelet Estimate Immature Plt Fraction Hypochromasia Anisocytosis Microcytosis Macrocytosis Ovalocytes Schistocytes Retic Count Immature Retic Fraction Retic Hgb Equivalent Haptoglobin PT INR Sodium 142 Potassium 3.1 L Chloride 108 H Carbon Dioxide 26.0 Anion Gap 8 BUN 54 H Creatinine 4.06 H Estim Creat Clear Calc 16.23 Est GFR (MDRD) Af Amer 19 L Est GFR (MDRD) Non-Af 15 L BUN/Creatinine Ratio 13.3 Glucose 103 Calcium 7.1 L Iron TIBC Iron Saturation Ferritin Total Bilirubin AST ALT Alkaline Phosphatase Lactate Dehydrogenase Troponin I Total Protein Albumin Globulin Albumin/Globulin Ratio Cortisol Heparin-induced Plt Ab POC Glucose 88 79 Blood Type Antibody Screen Crossmatch 09/25/20 06:57 WBC RBC Hgb Hct MCV MCH MCHC RDW Std Deviation RDW Coeff of Dano Plt Count MPV Immature Gran % (Auto) Neut % (Auto) Lymph % (Auto) [place] % (Auto) Eos % (Auto) Baso % (Auto) Absolute Neuts (auto) Absolute Lymphs (auto) Nucleated RBC % Differential Comment Diff Path Review Platelet Estimate Immature Plt Fraction Hypochromasia Anisocytosis Microcytosis Macrocytosis Ovalocytes Schistocytes Retic Count Immature Retic Fraction Retic Hgb Equivalent Haptoglobin PT INR Sodium Potassium Chloride Carbon Dioxide Anion Gap BUN Creatinine Estim Creat Clear Calc Est GFR (MDRD) Af Amer Est GFR (MDRD) Non-Af BUN/Creatinine Ratio Glucose Calcium Iron TIBC Iron Saturation Ferritin Total Bilirubin AST ALT Alkaline Phosphatase Lactate Dehydrogenase Troponin I Total Protein Albumin Globulin Albumin/Globulin Ratio Cortisol Heparin-induced Plt Ab POC Glucose 75 Blood Type Antibody Screen Crossmatch Microbiology 09/23/20 20:07 Stool Stool Occult Blood (SKYLER) - Final Occult Blood Positive Medical Necessity - Tobacco Use Smoking Status: Never smoker Assessment/Plan All Active Problems (Last Reviewed 09/24/20 @ 04:[address] Miguel Larry MD) GI bleed (Acute) Anemia (Acute) RECOMMENDATIONS: 1. Await HIT antibodies 2. Consider discontinuation of insulin therapy 3. Okay to leave the intensive care unit from my perspective 4. Evaluate dry weight status 5. Possible outpatient colonoscopy 6. Hold on heparin with dialysis pending antibody results IMPRESSIONS: 1. Hypotension Probable etiology of patient's lightheadedness and weakness. Clinical suspicion for hypovolemic hypotension given anemia and response to blood products. However, A. fib with RVR would be another possible etiology. Patient appears to have responded to volume resuscitation. Would hold off on fluids given dialysis status. Patient has been scoped for an upper GI recently showing only polyps. Patient may have an element of bleeding associated with thrombocytopenia. Patient has been seen by hematology as an outpatient by Dr. Mckeon. Patient appears to be hemodynamically stable at this time. Patient was some decreased blood pressures this morning, but this may be secondary to the development of A. fib with RVR. Agree with rate control, but will have to watch closely. Patient does not appear to have 2. Thrombocytopenia Unclear etiology. Patient may have a consumptive thrombocytopenia secondary to hemodialysis. Patient would also benefit from analysis of HIT antibodies. Would hold off on heparin with dialysis for now, but defer to nephrology. 3. A. fib with RVR Patient should be continued on amiodarone. Consider cardiology evaluation for recommendations. 4. BPH/diabetes mellitus/advanced age/repeated hospitalization Complicates care, management, recovery and prognosis. Patient made n.p.o. secondary to liver evaluation. This may have accounted for hypoglycemia. Patient may benefit from therapy services, but defer to primary service. Inpatient E&M: [id number] [facility] L[facility]
[2020-09-25 09:28] LABS: Pathologist Review Reviewed
--- NOTE | 2020-09-25 10:30 | PCM.PN.REN ---
Patient Problems: Active and Suspected Problems (Last Reviewed 09/24/20 @ 04:[address] Miguel Larry MD) GI bleed (Acute) Anemia (Acute) Subjective: no new events - Physical Exam Vitals/I&O's: Vital Signs Temp Pulse Resp BP Pulse Ox 98.3 F 120 H 18 111/70 96 09/25/20 08:40 09/25/20 08:40 09/25/20 08:40 09/25/20 08:40 09/25/20 08:40 Oxygen Delivery Method Room Air Weight: 78.2 kg Body Mass Index (BMI) 24.1 Finger Stick Blood Glucose 304 Intake and Output for Last 24 Hours 09/23/20 09/24/20 09/25/20 23:59 23:59 23:59 Intake Total 500 / 500 1374.5 / 1374.5 0 / 0 Output Total 0 / 0 Balance 500 / 500 1374.5 / 1374.5 0 / 0 General: Alert, Oriented x3, Cooperative HEENT: Atraumatic, PERRLA, EOMI, Normocephalic Neck: Supple, No JVD, Negative Carotid Bruits Lungs: Clear to auscultation, Normal air movement Cardiovascular: Regular rate, No murmurs Abdomen: Bowel Sounds Present, Soft, Non Tender Extremities: No edema, Capillary Refill Less than 3 Seconds Skin: No rashes, No breakdown Musculoskeletal: No Tenderness to Palpation of Joints or Extremities Neurological: Cranial nerves II-XII grossly intact Psych/Mental Status: Normal Affect, Appropriate Microbiology Past 72 Hours 09/23/20 20:07 Stool Stool Occult Blood (SKYLER) - Final Occult Blood Positive Laboratory Results 09/24/20 04:45: Diff Path Review Reviewed 09/24/20 15:46: POC Glucose 334 H 09/24/20 21:27: POC Glucose 151 H 09/25/20 00:16: POC Glucose 38 L* 09/25/20 00:40: POC Glucose 131 H 09/25/20 03:28: POC Glucose 42 L* 09/25/20 03:55: POC Glucose 141 H 09/25/20 04:54: WBC 4.6, RBC 2.45 L, Hgb 7.8 L, Hct 24.0 L, MCV 98.0 H, MCH 31.8, MCHC 32.5, RDW Std Deviation 70.6 H, RDW Coeff of Dano 20.2 H, Plt Count 39 L*, MPV 12.9 H, Immature Gran % (Auto) 1.100 H, Neut % (Auto) 82.5 H, Lymph % (Auto) 6.1 L, [place] % (Auto) 9.6, Eos % (Auto) 0.7, Baso % (Auto) 0.0, Absolute Neuts (auto) 3.8, Absolute Lymphs (auto) 0.28 L, Nucleated RBC % 0, Differential Comment SCANNED, Diff Path Review May foll, Platelet Estimate MKD DEC, Hypochromasia 1+, Anisocytosis 1+, Macrocytosis 1+, Ovalocytes RARE, Schistocytes RARE 09/25/20 04:54: Sodium 142, Potassium 3.1 L, Chloride 108 H, Carbon Dioxide 26.0, Anion Gap 8, BUN 54 H, Creatinine 4.06 H, Estim Creat Clear Calc 16.23, Est GFR (MDRD) Af Amer 19 L, Est GFR (MDRD) Non-Af 15 L, BUN/Creatinine Ratio 13.3, Glucose 103, Calcium 7.1 L 09/25/20 05:28: POC Glucose 88 09/25/20 06:21: POC Glucose 79 09/25/20 06:57: POC Glucose 75 Current Medications Acetaminophen (Acetaminophen 325 Mg Tablet) 650 mg PO Q6H PRN PRN PRN Reason: Pain Score 1-10/Temp > 100.7 F Last Admin: 09/24/20 03:25 Dose: 650 mg Documented by: Amiodarone HCl (Amiodarone 200 Mg Tablet) 200 mg PO DAILY CK Last Admin: 09/24/20 08:54 Dose: 200 mg Documented by: Calcium Carbonate (Calcium Carbonate 500 Mg Tablet) 1,000 mg PO Q4H PRN PRN PRN Reason: HEARTBURN Last Admin: 09/24/20 21:29 Dose: 1,000 mg Documented by: Dextrose (Dextrose 50%-Water 25 Gm/50 Ml Disp.Syrin) 0 gm IV X1 PRN; Protocol PRN Reason: Hypoglycemia Last Admin: 09/25/20 03:31 Dose: 25 gm Documented by: Glucagon (Glucagon 1 Mg/Ml Syringe) 1 mg IM .X1 PRN PRN Reason: Hypoglycemia Pantoprazole Sodium 40 mg/ (Sodium Chloride) 110 mls @ 330 mls/hr IV Q12 CK Last Infusion: 09/24/20 21:56 Dose: Infused Documented by: Sodium Chloride () 250 mls @ 15 mls/hr IV .[id number] PRN PRN Reason: Saline Flush Last Infusion: 09/24/20 21:58 Dose: 0 mls/hr Documented by: Sodium Chloride () 250 mls @ 15 mls/hr IV .[id number] PRN PRN Reason: Additional IVPB Infusion Dextrose () 1,000 mls @ 50 mls/hr IV .Q20H [facility] Stop: 09/25/20 13:44 Last Admin: 09/25/20 03:52 Dose: 50 mls/hr Documented by: Insulin Human Lispro (Insulin Lispro 100 Unit/Ml Insuln.Pen) 0 unit SC ACHS [facility]; Protocol Last Admin: 09/25/20 08:43 Dose: Not Given Documented by: Insulin Human Lispro (Insulin Lispro 100 Unit/Ml Insuln.Pen) 5 unit SC TIDAC [facility] Last Admin: 09/25/20 08:43 Dose: Not Given Documented by: Melatonin (Melatonin 3 Mg Tablet) 3 mg PO QHS PRN PRN PRN Reason: INSOMNIA Metoprolol Tartrate (Metoprolol Tartrate 50 Mg Tablet) 25 mg PO BID [facility] Last Admin: 09/25/20 05:54 Dose: 25 mg Documented by: Pravastatin Sodium (Pravastatin 20 Mg Tablet) 20 mg PO QHS [facility] Last Admin: 09/24/20 21:30 Dose: 20 mg Documented by: Sodium Chloride (0.9% Saline Lock 10 Ml Syringe) 10 - 40 ml IV UD PRN PRN Reason: SALINE FLUSH Last Admin: 09/25/20 05:54 Dose: 10 ml Documented by: Tamsulosin HCl (Tamsulosin Hcl 0.4 Mg Capsule) 0.4 mg PO DAILY [facility] Last Admin: 09/24/20 08:54 Dose: 0.4 mg Documented by: Medical Necessity - Tobacco Use Smoking Status: Never smoker Assessment/Plan All Active Problems (Last Reviewed 09/24/20 @ 04:[address] Miguel Larry MD) GI bleed (Acute) Anemia (Acute) Acute renal failure on dialysis. Dialysis today. seen on HD. Anemia. Reviewed lab from dialysis unit. Hemoglobin was about 9.3 in July. In August it was around 7.3. He has been on long-acting erythropoietin. Hemoglobin on admission was 6.8. Iron saturations which were more than 30% last month have dropped to less than 20%. Most likely he is losing blood. Stool for occult blood is positive. He also has extensive bruising all over the body. IV iron with dialysis. Also increase erythropoietin in dialysis as outpatient. Thrombocytopenia. Borderline before now significantly worse. He has not been getting heparin with dialysis as bolus. He does get heparin for closing the catheter. From now on his catheters will be closed with sodium citrate as outpatient. HIT antibodies are pending
--- NOTE | 2020-09-25 11:10 | PCM.PN.HOSP ---
Patient Problems: Active and Suspected Problems (Last Reviewed 09/24/20 @ 04:[address] Miguel Larry MD) GI bleed (Acute) Anemia (Acute) Subjective: Went into A. fib overnight. Was restarted on his metoprolol and continued on his amiodarone. And also had a episode of hypoglycemia because he was given his long-acting in the afternoon when his blood sugar was in the 300s however he was then made n.p.o. for his ultrasound in the morning. Vitals/I&O's: Vital Signs Temp Pulse Resp BP Pulse Ox 98.3 F 120 H 18 111/70 96 09/25/20 08:40 09/25/20 08:40 09/25/20 08:40 09/25/20 08:40 09/25/20 08:40 Oxygen Delivery Method Room Air Weight: 172 lb 6.424 oz Body Mass Index (BMI) 24.1 Finger Stick Blood Glucose 304 Intake and Output for Last 24 Hours 09/23/20 09/24/20 09/25/20 23:59 23:59 23:59 Intake Total 500 / 500 1374.5 / 1374.5 0 / 0 Output Total 0 / 0 Balance 500 / 500 1374.5 / 1374.5 0 / 0 General: Alert, Oriented x3, Cooperative, No apparent distress HEENT: Atraumatic, PERRLA, EOMI, Normocephalic Oral: Moist Mucosa Neck: Supple, No JVD Lungs: Clear to auscultation, Normal air movement, No rhonchi, No wheeze, No rales Cardiovascular: Irregular rate and rhythm, Normal S1, Normal S2, No murmurs Abdomen: Soft, Non Tender, Non-Distended, No Hepato-splenomegaly Extremities: No edema, Capillary Refill Less than 3 Seconds Skin: No rashes, No breakdown Neurological: Neuro grossly intact, Sensory exam intact to light touch and pain Psych/Mental Status: Normal Affect, Appropriate Microbiology Past 72 Hours 09/23/20 20:07 Stool Stool Occult Blood (SKYLER) - Final Occult Blood Positive Laboratory Results 09/24/20 04:45: Diff Path Review Reviewed 09/24/20 15:46: POC Glucose 334 H 09/24/20 21:27: POC Glucose 151 H 09/25/20 00:16: POC Glucose 38 L* 09/25/20 00:40: POC Glucose 131 H 09/25/20 03:28: POC Glucose 42 L* 09/25/20 03:55: POC Glucose 141 H 09/25/20 04:54: WBC 4.6, RBC 2.45 L, Hgb 7.8 L, Hct 24.0 L, MCV 98.0 H, MCH 31.8, MCHC 32.5, RDW Std Deviation 70.6 H, RDW Coeff of Dano 20.2 H, Plt Count 39 L*, MPV 12.9 H, Immature Gran % (Auto) 1.100 H, Neut % (Auto) 82.5 H, Lymph % (Auto) 6.1 L, [place] % (Auto) 9.6, Eos % (Auto) 0.7, Baso % (Auto) 0.0, Absolute Neuts (auto) 3.8, Absolute Lymphs (auto) 0.28 L, Nucleated RBC % 0, Differential Comment SCANNED, Diff Path Review May foll, Platelet Estimate MKD DEC, Hypochromasia 1+, Anisocytosis 1+, Macrocytosis 1+, Ovalocytes RARE, Schistocytes RARE 09/25/20 04:54: Sodium 142, Potassium 3.1 L, Chloride 108 H, Carbon Dioxide 26.0, Anion Gap 8, BUN 54 H, Creatinine 4.06 H, Estim Creat Clear Calc 16.23, Est GFR (MDRD) Af Amer 19 L, Est GFR (MDRD) Non-Af 15 L, BUN/Creatinine Ratio 13.3, Glucose 103, Calcium 7.1 L 09/25/20 05:28: POC Glucose 88 09/25/20 06:21: POC Glucose 79 09/25/20 06:57: POC Glucose 75 Current Medications Acetaminophen (Acetaminophen 325 Mg Tablet) 650 mg PO Q6H PRN PRN PRN Reason: Pain Score 1-10/Temp > 100.7 F Last Admin: 09/24/20 03:25 Dose: 650 mg Documented by: Amiodarone HCl (Amiodarone 200 Mg Tablet) 200 mg PO DAILY CK Last Admin: 09/24/20 08:54 Dose: 200 mg Documented by: Calcium Carbonate (Calcium Carbonate 500 Mg Tablet) 1,000 mg PO Q4H PRN PRN PRN Reason: HEARTBURN Last Admin: 09/24/20 21:29 Dose: 1,000 mg Documented by: Dextrose (Dextrose 50%-Water 25 Gm/50 Ml Disp.Syrin) 0 gm IV X1 PRN; Protocol PRN Reason: Hypoglycemia Last Admin: 09/25/20 03:31 Dose: 25 gm Documented by: Glucagon (Glucagon 1 Mg/Ml Syringe) 1 mg IM .X1 PRN PRN Reason: Hypoglycemia Pantoprazole Sodium 40 mg/ (Sodium Chloride) 110 mls @ 330 mls/hr IV Q12 CK Last Infusion: 09/24/20 21:56 Dose: Infused Documented by: Sodium Chloride () 250 mls @ 15 mls/hr IV .[id number] PRN PRN Reason: Saline Flush Last Infusion: 09/24/20 21:58 Dose: 0 mls/hr Documented by: Sodium Chloride () 250 mls @ 15 mls/hr IV .[id number] PRN PRN Reason: Additional IVPB Infusion Dextrose () 1,000 mls @ 50 mls/hr IV .Q20H [facility] Stop: 09/25/20 13:44 Last Admin: 09/25/20 03:52 Dose: 50 mls/hr Documented by: Insulin Human Lispro (Insulin Lispro 100 Unit/Ml Insuln.Pen) 0 unit SC ACHS CK; Protocol Last Admin: 09/25/20 08:43 Dose: Not Given Documented by: Insulin Human Lispro (Insulin Lispro 100 Unit/Ml Insuln.Pen) 5 unit SC TIDAC [facility] Last Admin: 09/25/20 08:43 Dose: Not Given Documented by: Melatonin (Melatonin 3 Mg Tablet) 3 mg PO QHS PRN PRN PRN Reason: INSOMNIA Metoprolol Tartrate (Metoprolol Tartrate 50 Mg Tablet) 25 mg PO BID CK Last Admin: 09/25/20 05:54 Dose: 25 mg Documented by: Pravastatin Sodium (Pravastatin 20 Mg Tablet) 20 mg PO QHS CK Last Admin: 09/24/20 21:30 Dose: 20 mg Documented by: Sodium Chloride (0.9% Saline Lock 10 Ml Syringe) 10 - 40 ml IV UD PRN PRN Reason: SALINE FLUSH Last Admin: 09/25/20 05:54 Dose: 10 ml Documented by: Tamsulosin HCl (Tamsulosin Hcl 0.4 Mg Capsule) 0.4 mg PO DAILY [facility] Last Admin: 09/24/20 08:54 Dose: 0.4 mg Documented by: STROKE Vital Signs/Narrative: Vital Signs Temp Pulse Resp BP Pulse Ox 09/25/20 08:40 98.3 F 120 H 18 111/70 96 Medical Necessity - Tobacco Use Smoking Status: Never smoker Assessment/Plan All Active Problems (Last Reviewed 09/24/20 @ 04:[address] Miguel Larry MD) GI bleed (Acute) Anemia (Acute) 1. Hypovolemic hypotension/acute on chronic anemia/acute on chronic thrombocytopenia/HTN/HLD/A. fib with RVR -Since he went into renal failure 6 months ago his anemia has stabilized at around a hemoglobin of 8. He did have a normal hemoglobin prior to January 2020. -He has also been chronically thrombocytopenic since January 2020 he has been seen by hematology as an outpatient and a bone marrow was unremarkable -Ultrasound of his liver and spleen were unremarkable however he does have a large pseudocyst in his pancreas was present in July and his study in February. At this point he will need an EUS for further evaluation and possible biopsy -He does have a history of bleeding hemorrhoids and given the fact that his stools are brown and he denies any bright red blood this is likely the cause of his bleeding -Appreciate nephrology's assistance with his anemia -He feels much better now that he was transfused 2 units denies any lightheadedness or dizziness -Hypotension has resolved -We will continue with his amiodarone however discontinue his metoprolol for now. He was given metoprolol this morning and 25 mg after a 10 mg of Cardizem bolus overnight. He continues to have elevated heart rate so we will give him another 25 of his metoprolol and after dialysis can give him his amiodarone -We will continue to monitor his CBC for his hemoglobin and his thrombocytopenia -Continue with statin -We will check a HIT panel since he received his heparin with his dialysis 2. End-stage renal disease secondary to DM 2 -Currently on dialysis MWF -Appreciate nephrology's assistance -They will manage his catheters now with sodium citrate instead of heparin -Continue with his home insulin regimen, Accu-Cheks AC at bedtime. Sliding scale insulin 3. GERD -Stable -Continue with PPI 4. BPH -Stable -Continue with Flomax DVT: SCDs Inpatient E&M: 76094 Subs Hosp L2
[2020-09-25] MEDS: Metoprolol Tartrate 25 MG Tablet PO (11:19)
[2020-09-25 11:41] LABS: Bedside Glucose 152 mg/dL (70-110)
[2020-09-25] MEDS: Amiodarone 200 MG Tablet PO (12:45)
[2020-09-25] MEDS: Tamsulosin HCl 0.4 MG Capsule PO (12:46)
--- NOTE | 2020-09-25 12:50 | DIALYSIS ---
HD x 3.5 hours complete. Tolerated tx well. Ran on 4k bath. No fluid removed. Used right chest wall dialysis catheter. Sodium citrate is not available per pharmacy. Dr. Crump is aware. Catheter closed with 0.9% sodium chloride. Caps placed. Dressing is dry and intact. Venofer given as ordered. Report was given to MAGGIE Andrews.
[2020-09-25 12:52] LABS: Haptoglobin 214 mg/dL (34-355)
[2020-09-25] MEDS: Insulin Lispro 100 UNIT/ML INSULN.PEN SC ×3 (12:54→18:33)
[2020-09-25] MEDS: Acetaminophen 325 MG Tablet 650 MG PO (13:00)
--- NOTE | 2020-09-25 13:44 | CASEMGMT ---
Pt qualifies for a Palliative referral per the [facility] palliative screening tool. Dr. Jenkins aware and states ok for Palliative c/s at this time. Palliative updated at this time. Marko SERRANO CM
[2020-09-25 14:47] LABS: Pathologist Review Reviewed
[2020-09-25 14:47] LABS: Pathologist Review Reviewed
--- NOTE | 2020-09-25 14:49 | PCM.CONS.P ---
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 transplanted heart: habematolel heart Qualified Code(s): I25.10 - Atherosclerotic heart disease of habematolel coronary artery without angina pectoris Comment: CX 20-30% prox-mid stenosis, LAD 20-30% and 10-20% anterior trunk stenosis, OM1 20-30% tapering ostial stenosis, RCA 20% prox stenosis- per cath 08/14/08; LEFT MAIN: Mild luminal irregularities; LEFT ANTERIOR DESCENDING ARTERY: PROX LAD: Mild calcification, Mild luminal irregularities, eccentric: 10 - 25 % Stenosis; MID LAD: Mild luminal irregularities; CIRCUMFLEX ARTERY: Mild luminal irregularities; RIGHT CORONARY ARTERY: PROX RCA: Mild calcification, Mild luminal irregularities, eccentric: 10 - 25 % Stenosis MID RCA: Mild luminal irregularities; AORTIC ROOT: Angiographically normal per cath 05/16/19 (13) Paroxysmal atrial fibrillation Status: Chronic (14) Gastroesophageal reflux disease Status: Chronic Qualifiers: Esophagitis presence: esophagitis presence not specified Qualified Code(s): K21.9 - Gastro-esophageal reflux disease without esophagitis (15) Diabetes mellitus, type II Status: Chronic Qualifiers: Diabetes mellitus complication status: with circulatory complication Diabetes mellitus complication detail: with other circulatory complications Qualified Code(s): E11.59 - Type 2 diabetes mellitus with other circulatory complications History of Present Illness Date of Consult: 09/25/20 Reason for Consult: weakness, ESRD Requesting physician: [] Primary care physician: Dr. Guanakito Quarles MD - History of Present Illness The patient is a 74 year old M with PMH as below, also history of ESRD on dialysis for about 1 month (M-W-F @ 9067), presented to the ED with complaints of dizziness and weakness. Hemoglobin was found to be low at 6.8. He has been getting erythropoietin during dialysis and hemoglobin continues to fall. Was 9.3 in July. He had a worsening and thrombocytopenia as well. Hemoccult stool was positive and GI bleed suspected versus bleeding hemorrhoids. Patient was admitted to the intensive care unit for further evaluation and management. Used Car Manager was consulted, recommended checking HIT antibodies and orthostatics. Nephrology was consulted and recommended IV iron with dialysis and increasing erythropoietin. Patient was transfused with 2 units of blood which improved the dizziness and hypotension. He went into A. fib last night and was restarted on his metoprolol, which was being held for the hypotension. Amiodarone continues. Hemoglobin 3/ was 6.8, 3/2 was 8.1, and 3/3 was 7.8. Platelets started out at 42 and are now 39. Also having issues with blood sugar, was given insulin but made n.p.o. for testing. He had an ultrasound of his liver and spleen which were unremarkable. Did have a large pseudocyst in his pancreas that was present in July, further evaluation/biopsy was recommended. Patient was just admitted 08/25 through 08/28/2020 for expressive aphasia, dysphagia, and HD. He returned home at that time. He was evaluated for therapy and is independent. Plan is to discharge home once stable. He lives with his , Lucy. Discussed palliative care with patient and what services could be provided. Discussed his comorbid conditions as well. Patient states that he would not be in this predicament if they could figure out why he is anemic. States he would not be on dialysis as well. He does not feel he is sick enough to be on palliative care. I did explain the difference between hospice, palliative, primary care, and other specialists. Greater than 50% of visit spent on education and counseling regarding the above. Patient is adamant he does not want to be followed as an outpatient with palliative care. Advised patient if he changes his mind, he can give us a call and we can provide more information for him if he has any further questions or concerns. Patient Problems: Chronic Problems (Last Reviewed 09/24/20 @ 04:[address] 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 gammopathy (Chronic) alf current use of amiodarone (Chronic) CAD in habematolel artery (Chronic) Pure hypercholesterolemia (Chronic) Essential hypertension (Chronic) Atherosclerotic heart disease of habematolel coronary artery without angina pectoris (Chronic) CX 20-30% prox-mid stenosis, LAD 20-30% and 10-20% anterior trunk stenosis, OM1 20-30% tapering ostial stenosis, RCA 20% prox stenosis- per cath 08/14/08; LEFT MAIN: Mild luminal irregularities; LEFT ANTERIOR DESCENDING ARTERY: PROX LAD: Mild calcification, Mild luminal irregularities, eccentric: 10 - 25 % Stenosis; MID LAD: Mild luminal irregularities; CIRCUMFLEX ARTERY: Mild luminal irregularities; RIGHT CORONARY ARTERY: PROX RCA: Mild calcification, Mild luminal irregularities, eccentric: 10 - 25 % Stenosis MID RCA: Mild luminal irregularities; AORTIC ROOT: Angiographically normal per cath 05/16/19 Paroxysmal atrial fibrillation (Chronic) Gastroesophageal reflux disease (Chronic) Diabetes mellitus, type II (Chronic) Surgical History: cholecystectomy - Cholecystectomy with ERCP. Psychiatric History: No pertinent psych hx Home Medications: Ambulatory Orders Medication Instructions Recorded Tamsulosin HCl [Flomax] 0.4 mg PO DAILY 01/21/16 Amiodarone HCl 200 mg PO DAILY 08/05/20 Aspirin [Aspirin, Baby] 81 mg PO DAILY@0800 tab.chew 08/28/20 insulin lispro 100 unit/mL 5 unit SC TIDAC PRN insuln.pen 09/04/20 subcutaneous pen pantoprazole 40 mg tablet,delayed 40 mg PO DAILY tab 09/04/20 release sitagliptin 100 mg tablet 100 mg PO DAILY 09/04/20 Pravastatin Sodium 20 mg PO QHS 09/23/20 Prednisone See Taper PO DAILY 09/23/20 Insulin Glargine [Lantus SoloStar 12 unit SC DAILY #0 ml 09/26/20 Pen] Metoprolol Tartrate [Lopressor 25 mg PO BID #0 09/26/20 (beta chino)] Allergies scopolamine Adverse Reaction (Verified 09/23/20 19:01) HALLUCINATIONS SOME TYPE OF IV DYE FOR ULTRA BRYCE Adverse Reaction (Uncoded 09/23/20 19:01) backache Had during ultrasound of his heart Maternal Family History: Family History (Last Reviewed 09/25/20 @ 15:07 by WILMA Galindo) Father CAD (coronary artery disease) Mother Alzheimers disease Sister Breast cancer History Items: Dementia Paternal Family History: Family History (Last Reviewed 09/25/20 @ 15:07 by WILMA Galindo) Father CAD (coronary artery disease) Mother Alzheimers disease Sister Breast cancer History Items: Cancer - Father with history of colon cancer., High Cholesterol, Heart Disease, Hypertension - Social History Smoking Status: Never smoker Alcohol: None Drugs: None Code Status: Full Code Review of Systems Constitutional: Reports: Fatigue. Denies: Anorexia, Chills, Fever, Weight Change Eyes: Denies: Vision Change HEENT: Denies: Difficulty Hearing, Difficulty Swallowing, Dysphasia, Head Aches, Sinus Congestion, Sinus Drainage, Sore Throat Cardiovascular: Reports: Edema, Palpitations. Denies: Chest Pain, Light Headedness Respiratory: Denies: Cough, Shortness of Breath, Wheezing Gastrointestinal: Denies: Abdominal Pain, Nausea, Vomiting Genitourinary: Reports: - - still makes urine. Denies: Dysuria Musculoskeletal: Denies: Joint Pain, Joint Tenderness Neurological: Reports: - - was having. Denies: Balance problems, Change in Speech, Numbness, Tingling Physical Exam Objective: Vital Signs Temp Pulse Resp BP Pulse Ox 99.2 F H 120 H 18 107/64 99 09/25/20 14:15 09/25/20 14:15 09/25/20 14:15 09/25/20 14:15 09/25/20 14:15 Oxygen Delivery Method Room Air Weight: 78.2 kg Body Mass Index (BMI) 24.1 Finger Stick Blood Glucose 304 Intake and Output for Last 24 Hours 09/23/20 09/24/20 09/25/20 23:59 23:59 23:59 Intake Total 500 / 500 1374.5 / 1374.5 694.17 / 694.17 Output Total 400 / 400 Balance 500 / 500 1374.5 / 1374.5 294.17 / 294.17 Microbiology Past 72 Hours 09/23/20 20:07 Stool Occult Blood (SKYLER) - Final Stool Occult Blood Positive Laboratory Tests Past 24 Hrs 09/23/20 09/23/20 09/24/20 19:30 19:30 04:45 WBC RBC Hgb Hct MCV MCH MCHC RDW Std Deviation RDW Coeff of Dano Plt Count MPV Immature Gran % (Auto) Neut % (Auto) Lymph % (Auto) [place] % (Auto) Eos % (Auto) Baso % (Auto) Absolute Neuts (auto) Absolute Lymphs (auto) Nucleated RBC % Differential Comment Diff Path Review Reviewed Reviewed Platelet Estimate Hypochromasia Anisocytosis Macrocytosis Ovalocytes Schistocytes Haptoglobin 214 Sodium Potassium Chloride Carbon Dioxide Anion Gap BUN Creatinine Estim Creat Clear Calc Est GFR (MDRD) Af Amer Est GFR (MDRD) Non-Af BUN/Creatinine Ratio Glucose Calcium 09/25/20 09/25/20 04:54 04:54 WBC 4.6 RBC 2.45 L Hgb 7.8 L Hct 24.0 L MCV 98.0 H MCH 31.8 MCHC 32.5 RDW Std Deviation 70.6 H RDW Coeff of Dano 20.2 H Plt Count 39 L* MPV 12.9 H Immature Gran % (Auto) 1.100 H Neut % (Auto) 82.5 H Lymph % (Auto) 6.1 L [place] % (Auto) 9.6 Eos % (Auto) 0.7 Baso % (Auto) 0.0 Absolute Neuts (auto) 3.8 Absolute Lymphs (auto) 0.28 L Nucleated RBC % 0 Differential Comment SCANNED Diff Path Review Reviewed Platelet Estimate MKD DEC Hypochromasia 1+ Anisocytosis 1+ Macrocytosis 1+ Ovalocytes RARE Schistocytes RARE Haptoglobin Sodium 142 Potassium 3.1 L Chloride 108 H Carbon Dioxide 26.0 Anion Gap 8 BUN 54 H Creatinine 4.06 H Estim Creat Clear Calc 16.23 Est GFR (MDRD) Af Amer 19 L Est GFR (MDRD) Non-Af 15 L BUN/Creatinine Ratio 13.3 Glucose 103 Calcium 7.1 L Assessment/Plan All Active Problems (Last Reviewed 09/24/20 @ 04:[address] Miguel Larry MD) GI bleed (Acute) Weakness (Acute) ESRD (end stage renal disease) on dialysis (Acute) Anemia (Acute) 74-year-old, fairly new on hemodialysis, seen for palliative care consultation secondary to weakness, debility, and the fact that he is end-stage renal disease. 1. Weakness/debility: Likely multifactorial given his anemia/thrombocytopenia and HD, A. fib, etc. He was evaluated by PT and is independent, not requiring any DME. 2. ESRD: He has been on dialysis for about a month. Is weaker than normal, but tolerating fairly well. 3. Thrombocytopenia/anemia: Appears to be currently stable. Following with Dr. Mckeon. He will continue follow-up as an outpatient. 4. A. fib RVR/BPH/type II DM/orthostatic hypotension: Complicates overall care, management, recovery, and prognosis. Medications are being adjusted by hospitalist, patient should have close follow-up with his primary care when discharged. Thank you for the opportunity to participate in this patient's care, please do not hesitate to contact [facility] with any further questions or concerns. Palliative direct line is [phone]. We will have patient follow up in her home approximately 3 days after discharge and will discuss palliative services further. Patient is not sure if he would be interested in palliative care services but is open to RN visit once he is discharged to discuss further.
[2020-09-25 16:55] LABS: Bedside Glucose 95 mg/dL (70-110)
[2020-09-25] MEDS: Metoprolol Tartrate 50 MG Tablet PO (20:21)
[2020-09-25 21:02] LABS: Heparin-Induced Plt Ab 0.097 OD (0.000-0.400)
[2020-09-25] MEDS: Pravastatin 20 MG Tablet PO (22:30)
[2020-09-25 22:50] LABS: Bedside Glucose 148 mg/dL (70-110)
[2020-09-26] VITALS (8 sets, daily range): BP systolic 83–103; BP diastolic 36–61; PULSE 76–115; RESP 18; TEMP 37.1–37.2; O2SAT 96–97
--- NOTE | 2020-09-26 05:03 | EKG12_ITS ---
Test Reason : RHYTHM CHECK Blood Pressure : / mmHG Vent. Rate : 079 BPM Atrial Rate : 079 BPM P-R Int : 126 ms QRS Dur : 082 ms QT Int : 406 ms P-R-T Axes : 054 036 071 degrees QTc Int : 465 ms Normal sinus rhythm Normal ECG Confirmed by ARTURO EATON, FELIZ ([id number]), editorial clerk LO ARRINGTON ([id number]) on 09/30/2020 2:46:43 PM Referred By: PASCALE Confirmed By:FELIZ MORRIS MD
[2020-09-26 07:00] LABS: Absolute Lymphocyte Count 0.29 X10^3/uL (0.83-4.51); Absolute Neutrophil Count 4.2 X10^3/uL (2.0-7.7); Eosinophil# 0.04 X10^3/uL; Eosinophils% 0.8 % (0-5); Hematocrit 24.2 % (40-54); Hemoglobin 7.8 g/dL (13.0-16.5); Lymphocyte # 0.29 X10^3/ul (4.0); Lymphocyte % 5.8 % (19-41); Mean Corp Hgb Conc 32.2 g/dL (32-36); Mean Corpuscular Hgb 32.1 pg (27.0-32.0); Mean Corpuscular Volume 99.6 fL (80-94); Mean Platelet Vol. 12.5 fl (6.2-12.0); Monocyte# 0.36 X10^3/uL; Monocyte% 7.2 % (0-10); NRBC Flagged by Analyzer 0 % (0-5); Neutrophil # 4.24 X10^3/uL (2.7-7.7); Neutrophil % 85.4 % (47-70); POSITIVE COUNT YES; POSITIVE DIFFERENTIAL YES; POSITIVE MORPHOLOGY YES; RBC Distribution Width CV 19.9 % (11.6-14.6); RBC Distribution Width SD 71.3 fl (35.1-43.9); Red Blood Count 2.43 M/mm3 (4.6-6.2)
[2020-09-26 07:02] LABS: Differential Indicated SCAN CRITERIA MET; Platelet Count 41 K/mm3 (150-450)
[2020-09-26] MEDS: Insulin Lispro 100 UNIT/ML INSULN.PEN SC (07:03)
[2020-09-26 07:18] LABS: Anion Gap 5 (5-15); BUN 36 mg/dL (7-18); BUN/Creat Ratio 10.5 RATIO (10-20); Calcium,Total 7.2 mg/dL (8.5-10.1); Chloride 108 mmol/L (98-107); Creatinine, Serum 3.44 mg/dL (0.70-1.30); EST Glomerular Filtration Rate 19 mL/min (>60); Est Glom Filt Rate - Afr Amer 23 mL/min (>60); Estimated Creatinine Clearance 19.16 ml/min; Glucose 133 mg/dL (74-106); Potassium 3.5 mmol/L (3.5-5.1); Sodium Level 141 mmol/L (136-145)
[2020-09-26 08:07] LABS: Differential Comment SCANNED
[2020-09-26 08:08] LABS: Anisocytosis 2+; Macrocytosis 1+; Ovalocyte 1+; Schistocytes 1+
[2020-09-26 08:09] LABS: Platelet Estimate MKD DEC (ADEQ); Red Cell Morphology N CHROM NORMAL (NORM C&C)
--- NOTE | 2020-09-26 08:09 | PN_ITS ---
Patient Problems: Active and Suspected Problems (Last Reviewed 09/24/20 @ 04:[address] Miguel Larry MD) GI bleed (Acute) Weakness (Acute) ESRD (end stage renal disease) on dialysis (Acute) Anemia (Acute) Subjective: Patient did okay overnight. Patient did have some A. fib with RVR, but was in sinus rhythm by this morning. Patient states he was feeling well. Patient states he has no symptoms as long as his blood pressure is above a systolic of 110. Patient is not reporting any dyspnea at this time. Patient is not having any orthostatic symptoms. - Physical Exam Vitals/I&O's: Vital Signs Temp Pulse Resp BP Pulse Ox 37.1 C 79 18 103/61 96 09/26/20 02:15 09/26/20 07:00 09/26/20 02:15 09/26/20 02:15 09/26/20 07:31 Oxygen Delivery Method Room Air Weight: 77 kg Body Mass Index (BMI) 24.1 Finger Stick Blood Glucose 304 Intake and Output for Last 24 Hours 09/24/20 09/25/20 09/26/20 23:59 23:59 23:59 Intake Total 1374.5 / 1374.5 804.17 / 804.17 Output Total 700 / 700 350 / 350 Balance 1374.5 / 1374.5 104.17 / 104.17 -350 / -350 General: Alert, Oriented x3, Cooperative, No apparent distress, Well developed, Well nourished, - - Speaking in full sentences. HEENT: Atraumatic, PERRLA, EOMI, Normocephalic, - - No scleral icterus or injection noted Oral: Moist Mucosa, No Gingival or Mucosal Lesions/ Ulcerations Neck: Supple, No Nodes, Trachea Midline, JVD, Right Lungs: No rhonchi, No wheeze, No rales, Diminished Cardiovascular: Normal S1, Normal S2, Irregular Rate, Murmur, No rub noted, No Gallop Abdomen: Bowel Sounds Present, Soft, Non Tender, Non-Distended Extremities: No clubbing, No cyanosis, No edema Skin: No rashes, No breakdown Musculoskeletal: No Tenderness to Palpation of Joints or Extremities Lymphatic: No Cervical, Supraclavicular, or Inguinal Adenopathy Neurological: Cranial nerves II-XII grossly intact, Neuro grossly intact, Motor Exam 5/5 strength throughout Psych/Mental Status: Alert and oriented to time, place, person, mood and affect Microbiology Past 72 Hours 09/23/20 20:07 Stool Stool Occult Blood (SKYLER) - Final Occult Blood Positive Laboratory Results 09/23/20 19:30: Diff Path Review Reviewed 09/23/20 19:30: Haptoglobin 214 09/23/20 19:30: Heparin-induced Plt Ab 0.097 09/24/20 04:45: Diff Path Review Reviewed 09/25/20 04:54: Diff Path Review Reviewed 09/25/20 11:24: POC Glucose 152 H 09/25/20 16:49: POC Glucose 95 09/25/20 22:24: POC Glucose 148 H 09/26/20 06:05: WBC 5.0, RBC 2.43 L, Hgb 7.8 L, Hct 24.2 L, MCV 99.6 H, MCH 32.1 H, MCHC 32.2, RDW Std Deviation 71.3 H, RDW Coeff of [place] 19.9 H, Plt Count 41 L* , MPV 12.5 H, Immature Gran % (Auto) 0.800, Neut % (Auto) 85.4 H, Lymph % (Auto) 5.8 L, [place] % (Auto) 7.2, Eos % (Auto) 0.8, Baso % (Auto) 0.0, Absolute Neuts (auto) 4.2, Absolute Lymphs (auto) 0.29 L, Nucleated RBC % 0 09/26/20 06:05: Sodium 141, Potassium 3.5, Chloride 108 H, Carbon Dioxide 28.0, Anion Gap 5, BUN 36 H, Creatinine 3.44 H, Estim Creat Clear Calc 19.16, Est GFR (MDRD) Af Amer 23 L, Est GFR (MDRD) Non-Af 19 L, BUN/Creatinine Ratio 10.5, Glucose 133 H, Calcium 7.2 L Current Medications Acetaminophen (Acetaminophen 325 Mg Tablet) 650 mg PO Q6H PRN PRN PRN Reason: Pain Score 1-10/Temp > 100.7 F Last Admin: 09/25/20 13:00 Dose: 650 mg Documented by: Amiodarone HCl (Amiodarone 200 Mg Tablet) 200 mg PO DAILY CK Last Admin: 09/25/20 12:45 Dose: 200 mg Documented by: Calcium Carbonate (Calcium Carbonate 500 Mg Tablet) 1,000 mg PO Q4H PRN PRN PRN Reason: HEARTBURN Last Admin: 09/24/20 21:29 Dose: 1,000 mg Documented by: Dextrose (Dextrose 50%-Water 25 Gm/50 Ml Disp.Syrin) 0 gm IV X1 PRN; Protocol PRN Reason: Hypoglycemia Last Admin: 09/25/20 03:31 Dose: 25 gm Documented by: Glucagon (Glucagon 1 Mg/Ml Syringe) 1 mg IM .X1 PRN PRN Reason: Hypoglycemia Pantoprazole Sodium 40 mg/ (Sodium Chloride) 110 mls @ 330 mls/hr IV Q12 [facility] Last Infusion: 09/25/20 22:54 Dose: Infused Documented by: Sodium Chloride () 250 mls @ 15 mls/hr IV .[id number] PRN PRN Reason: Saline Flush Last Infusion: 09/24/20 21:58 Dose: 0 mls/hr Documented by: Sodium Chloride () 250 mls @ 15 mls/hr IV .[id number] PRN PRN Reason: Additional IVPB Infusion Insulin Human Lispro (Insulin Lispro 100 Unit/Ml Insuln.Pen) 0 unit SC ACHS [facility]; Protocol Last Admin: 09/26/20 07:02 Dose: Not Given Documented by: Insulin Human Lispro (Insulin Lispro 100 Unit/Ml Insuln.Pen) 5 unit SC TIDAC [facility] Last Admin: 09/26/20 07:03 Dose: 5 units Documented by: Melatonin (Melatonin 3 Mg Tablet) 3 mg PO QHS PRN PRN PRN Reason: INSOMNIA Metoprolol Tartrate (Metoprolol Tartrate 50 Mg Tablet) 50 mg PO BID [facility] Last Admin: 09/25/20 20:21 Dose: 50 mg Documented by: Pravastatin Sodium (Pravastatin 20 Mg Tablet) 20 mg PO QHS [facility] Last Admin: 09/25/20 22:30 Dose: 20 mg Documented by: Sodium Chloride (0.9% Saline Lock 10 Ml Syringe) 10 - 40 ml IV UD PRN PRN Reason: SALINE FLUSH Last Admin: 09/25/20 22:34 Dose: 10 ml Documented by: Tamsulosin HCl (Tamsulosin Hcl 0.4 Mg Capsule) 0.4 mg PO DAILY [facility] Last Admin: 09/25/20 12:46 Dose: 0.4 mg Documented by: Clinical Impression(s) from Imaging Studies Liver Ultrasound 09/24/20 15:28 IMPRESSION: Negative splenic ultrasound. Minimal amount of free fluid surrounding the spleen. Electronically Signed: Stanton Betancourt MD at 8:53 EST , Service support , Medical Necessity - Tobacco Use Smoking Status: Never smoker Assessment/Plan All Active Problems (Last Reviewed 09/24/20 @ 04:[address] Miguel Larry MD) GI bleed (Acute) Weakness (Acute) ESRD (end stage renal disease) on dialysis (Acute) Anemia (Acute) RECOMMENDATIONS: 1. Defer to hematology on platelet antibody titer 2. Hemodynamically stable on room air. Will sign off from a critical care perspective 3. Consider orthostatics before discharge 4. Evaluate dry weight status 5. Possible outpatient colonoscopy/EUS IMPRESSIONS: 1. Hypotension Probable etiology of patient's lightheadedness and weakness. Clinical suspicion for hypovolemic hypotension given anemia and response to blood products. However, A. fib with RVR would be another possible etiology. Patient appears to have responded to volume resuscitation. Patient appears to do well when in normal sinus rhythm. Patient was on flecainide in the past with good response. Another option would be an ablation of therapy, but would defer to cardiology for recommendations. 2. Thrombocytopenia Unclear etiology. Patient may have a consumptive thrombocytopenia secondary to hemodialysis. Patient does have minimal levels of heparin-induced platelet antibody. Unclear if this would preclude future heparin products. 3. A. fib with RVR Patient should be continued on amiodarone. Consider cardiology evaluation for recommendations. 4. BPH/diabetes mellitus/advanced age/repeated hospitalization Complicates care, management, recovery and prognosis. Blood sugars have been well controlled now the patient is not NPO. Inpatient E&M: 86610 Subs Hosp L2
[2020-09-26] MEDS: Amiodarone 200 MG Tablet PO (08:32)
[2020-09-26] MEDS: Tamsulosin HCl 0.4 MG Capsule PO (08:32)
--- NOTE | 2020-09-26 09:58 | PCM.DC ---
- Discharge Diagnoses Current Active Problems: Current Active and Chronic Problems (Last Reviewed 09/24/20 @ 04:[address] 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) Pure hypercholesterolemia (Chronic) Essential hypertension (Chronic) Atherosclerotic heart disease of [place] coronary artery without angina pectoris (Chronic) CX 20-30% prox-mid stenosis, LAD 20-30% and 10-20% anterior trunk stenosis, OM1 20-30% tapering ostial stenosis, RCA 20% prox stenosis- per cath 08/14/08; LEFT MAIN: Mild luminal irregularities; LEFT ANTERIOR DESCENDING ARTERY: PROX LAD: Mild calcification, Mild luminal irregularities, eccentric: 10 - 25 % Stenosis; MID LAD: Mild luminal irregularities; CIRCUMFLEX ARTERY: Mild luminal irregularities; RIGHT CORONARY ARTERY: PROX RCA: Mild calcification, Mild luminal irregularities, eccentric: 10 - 25 % Stenosis MID RCA: Mild luminal irregularities; AORTIC ROOT: Angiographically normal per cath 05/16/19 Paroxysmal atrial fibrillation (Chronic) Gastroesophageal reflux disease (Chronic) Diabetes mellitus, type II (Chronic) You will use the following diet at home:: Cardiac Your food should be the consistency of: Regular Your liquids should be the consistency of: Regular/Thin Discharge Activity: Return to Normal Activity Call your doctor if you observe: Fever of 101 or Higher, Shortness of breath, Dizziness, Fainting spells, Swelling in the ankles, Chest pain, Increased palpitations (irregular heartbeat) Allergies/Adverse Reactions: Allergies scopolamine Adverse Reaction (Verified 09/23/20 19:01) HALLUCINATIONS SOME TYPE OF IV DYE FOR ULTRA BRYCE Adverse Reaction (Uncoded 09/23/20 19:01) backache Had during ultrasound of his heart Medications to take at Discharge Tamsulosin HCl [Flomax] 0.4 mg PO DAILY 01/21/16 Amiodarone HCl 200 mg PO DAILY 08/05/20 Aspirin [Aspirin, Baby] 81 mg PO DAILY@0800 tab.chew 08/28/20 insulin lispro 100 unit/mL subcutaneous pen 5 unit SC TIDAC PRN insuln.pen 09/04/20 pantoprazole 40 mg tablet,delayed release 40 mg PO DAILY tab 09/04/20 sitagliptin 100 mg tablet 100 mg PO DAILY 09/04/20 Pravastatin Sodium 20 mg PO QHS 09/23/20 Prednisone See Taper PO DAILY 09/23/20 Insulin Glargine [Lantus SoloStar Pen] 12 unit SC DAILY #0 ml 09/26/20 Metoprolol Tartrate [Lopressor (beta [place])] 25 mg PO BID #0 09/26/20 Primary Care Physician: Guanakito Quarles MD [Primary Care Provider] - Please follow up with your Primary Care Physician in: 3-5 days Test Results: Test results from this visit will be discussed in further detail at your follow-up appointment, if applicable. Please Follow Up With: Blake Mckeon DO When: 1-2 days Please Follow Up With: Cardiology When: 2-4 weeks
[2020-09-26] MEDS: Metoprolol Tartrate 25 MG Tablet PO (10:03)
--- NOTE | 2020-09-26 10:41 | DS.PCM_ITS ---
Discharge Date and Diagnosis - Problem List Patient Problems: Active and Suspected Problems (Last Reviewed 09/24/20 @ 04:[address] Miguel Larry MD) GI bleed (Acute) Weakness (Acute) ESRD (end stage renal disease) on dialysis (Acute) Anemia (Acute) Date of Admission: 09/25/20 Date of Discharge: 09/26/20 - Primary Discharge Diagnosis Acute Problems: Active Problems (Last Reviewed 09/24/20 @ 04:[address] Miguel Larry MD) GI bleed (Acute) Weakness (Acute) ESRD (end stage renal disease) on dialysis (Acute) Anemia (Acute) - Secondary Discharge Diagnosis Chronic Problems: Chronic Problems (Last Reviewed 09/24/20 @ 04:[address] Miugel Larry MD) Thrombocytopenia (Chronic) BPH (benign prostatic hyperplasia) (Chronic) Atrial fibrillation (Chronic) Monoclonal gammopathy (Chronic) care home current use of amiodarone (Chronic) CAD in [place] artery (Chronic) Pure hypercholesterolemia (Chronic) Essential hypertension (Chronic) Atherosclerotic heart disease of [place] coronary artery without angina pectoris (Chronic) CX 20-30% prox-mid stenosis, LAD 20-30% and 10-20% anterior trunk stenosis, OM1 20-30% tapering ostial stenosis, RCA 20% prox stenosis- per cath 08/14/08; LEFT MAIN: Mild luminal irregularities; LEFT ANTERIOR DESCENDING ARTERY: PROX LAD: Mild calcification, Mild luminal irregularities, eccentric: 10 - 25 % Stenosis; MID LAD: Mild luminal irregularities; CIRCUMFLEX ARTERY: Mild luminal irregularities; RIGHT CORONARY ARTERY: PROX RCA: Mild calcification, Mild luminal irregularities, eccentric: 10 - 25 % Stenosis MID RCA: Mild luminal irregularities; AORTIC ROOT: Angiographically normal per cath 05/16/19 Paroxysmal atrial fibrillation (Chronic) Gastroesophageal reflux disease (Chronic) Diabetes mellitus, type II (Chronic) Hospital Course and Treatment Imaging Results: Clinical Impression(s) from Imaging Studies Chest X-Ray 09/23/20 19:56 IMPRESSION: No acute cardiopulmonary process. Electronically Signed: Jeannie Solis MD at 20:27 EST Tel , Service support , Liver Ultrasound 09/24/20 15:28 IMPRESSION: Negative splenic ultrasound. Minimal amount of free fluid surrounding the spleen. Electronically Signed: Stanton Betancourt MD at 8:53 EST , Service support , FINDINGS: Liver: The liver measures 17 cm. There is normal echogenicity of the liver. The bile ducts are within normal limits. There is hepatic color flow. The direction of portal flow is hepatopetal. There is no demonstrated mass lesion. Gallbladder: The patient is status post cholecystectomy. Common Bile Duct (C.B.D.): The common bile duct measures 5.7 mm. Pancreas: There is a 4.8 cm x 3.9 cm x 1.3 cm complex cystic mass in the body and tail portion of the pancreas. This may represent a dilated pancreatic duct and possible pseudocyst. Right Kidney: Normal size of the right kidney. The right kidney measures 12.5 cm x 4.9 cm x 5 cm. Normal renal cortex. The right cortex measures 1.6 cm. There is no demonstrated renal mass or cyst. 5 mm nonobstructive intrarenal calculus. IMPRESSION: 4.8 cm x 3.9 cm on 0.3 cm complex cystic mass in the body and tail portion of the pancreas as described. Correlation with CT scan is recommended. Consults: Pulmonology Nephrology Operations: None Procedures: Dialysis Summary of Care Provided: Per HPI: The patient is a 74 year old M with a significant history of type 2 diabetes; hypertension; CAD status post stent; paroxysmal A. fib who presents to the emergency department with weakness and lightheadedness. His symptoms started after dialysis. At the emergency part the patient was found to be anemic. His fecal occult blood test was positive. He denies any black stools. Initially patient was found to be hypotensive and was in A. fib with RVR. Recently his amlodipine was stopped because of hypotension. Emergency department doctor reported brown stool on examination but positive occult stool. Hospital Course: 1. Hypovolemic hypotension/acute on chronic anemia/acute on chronic thrombocytopenia/HTN/HLD/A. fib with [id number]-hfrn-old male presented with hypotension consistent with hypovolemia. He does have chronic hemorrhoids which bleed intermittently however his stool have remained brown during his admission. He was transfused 2 units and has remained stable with his anemia. He has been anemic since January 2020 and this is being managed by nephrology. He was also found to have a more significant thrombocytopenia but once again this has been fairly chronic since January 2020 but has gotten worse since starting dialysis about a month ago. LDH was normal and there were no significant amount of schistocytes and HIT panel was negative. Unlikely to be TTP he does not have a hemolytic anemia component either. I did discuss the case extensively with his welding pantograph machine operator who will see him fairly quickly as an outpatient. We did obtain liver and spleen ultrasound for completeness, and these were normal except for a 4.8 cm mass in the tail of the pancreas. This has been present since 2019 though it has grown. This will need to be evaluated at a tertiary care center with an EUS which cannot be done here. The welding pantograph machine operator is also aware of this as well and will organize this test on discharge. As for his hypertension, we did transition his metoprolol down to 25 mg p.o.twice daily he was continue to go in and out of A. fib during his hospitalization his heart rate could get up into the 130s or 140s. Continue with amiodarone on discharge as well, would recommend follow-up with cardiology as an outpatient to see if there is anything they can do for his A. fib either change medications or possible ablation after he gets his pancreatic mass worked up. I discussed with him the plan for discharge today and he expressed understanding of the risk benefits going home and would like to go home today. 2. End-stage renal disease/DM 2-we will continue with his normal dialysis schedule on discharge, I did decrease his insulin to 12 units instead of the 24 units of his long-acting that he was getting. This had been restarted in the hospital when he started eating and he became very hypoglycemic and he is currently 133 on his BMP therefore I recommend that when he resumes his normal home diet that he monitor his blood sugar and make adjustments to his long- acting insulin as necessary. 3. GERD, BPH are chronic medical conditions which complicate his care. His home medications were continued where appropriate Patient Problems: Active and Suspected Problems (Last Reviewed 09/24/20 @ 04:[address] Miguel Larry MD) GI bleed (Acute) Weakness (Acute) ESRD (end stage renal disease) on dialysis (Acute) Anemia (Acute) - Physical Exam Vitals/I&O's: Vital Signs Temp Pulse Resp BP Pulse Ox 98.9 F 77 18 94/36 L 97 09/26/20 08:27 09/26/20 10:03 09/26/20 08:27 09/26/20 10:01 09/26/20 08:27 Oxygen Delivery Method Room Air Weight: 169 lb 12.095 oz Body Mass Index (BMI) 24.1 Finger Stick Blood Glucose 304 Intake and Output for Last 24 Hours 09/24/20 09/25/20 09/26/20 23:59 23:59 23:59 Intake Total 1374.5 / 1374.5 804.17 / 804.17 Output Total 700 / 700 350 / 350 Balance 1374.5 / 1374.5 104.17 / 104.17 -350 / -350 General: Alert, Oriented x3, Cooperative, No apparent distress HEENT: Atraumatic, PERRLA, EOMI, Normocephalic Oral: Moist Mucosa Neck: Supple, No JVD Lungs: Clear to auscultation, Normal air movement, No rhonchi, No wheeze, No rales Cardiovascular: Irregular rate and rhythm, Normal S1, Normal S2, No murmurs Abdomen: Soft, Non Tender, Non-Distended, No Hepato-splenomegaly Extremities: No edema, Capillary Refill Less than 3 Seconds Skin: No rashes, No breakdown Neurological: Neuro grossly intact, Sensory exam intact to light touch and pain Psych/Mental Status: Normal Affect, Appropriate Microbiology Past 72 Hours 09/23/20 20:07 Stool Stool Occult Blood (SKYLER) - Final Occult Blood Positive Laboratory Results 09/23/20 19:30: Diff Path Review Reviewed 09/23/20 19:30: Haptoglobin 214 09/23/20 19:30: Heparin-induced Plt Ab 0.097 09/25/20 04:54: Diff Path Review Reviewed 09/25/20 11:24: POC Glucose 152 H 09/25/20 16:49: POC Glucose 95 09/25/20 22:24: POC Glucose 148 H 09/26/20 06:05: WBC 5.0, RBC 2.43 L, Hgb 7.8 L, Hct 24.2 L, MCV 99.6 H, MCH 32.1 H, MCHC 32.2, RDW Std Deviation 71.3 H, RDW Coeff of [place] 19.9 H, Plt Count 41 L* , MPV 12.5 H, Immature Gran % (Auto) 0.800, Neut % (Auto) 85.4 H, Lymph % (Auto) 5.8 L, [place] % (Auto) 7.2, Eos % (Auto) 0.8, Baso % (Auto) 0.0, Absolute Neuts (auto) 4.2, Absolute Lymphs (auto) 0.29 L, Nucleated RBC % 0, Differential Comment SCANNED, Diff Path Review May foll, Platelet Estimate MKD DEC, RBC Morphology N CHROM, Anisocytosis 2+, Macrocytosis 1+, Ovalocytes 1+, Schistocytes 1+ 09/26/20 06:05: Sodium 141, Potassium 3.5, Chloride 108 H, Carbon Dioxide 28.0, Anion Gap 5, BUN 36 H, Creatinine 3.44 H, Estim Creat Clear Calc 19.16, Est GFR (MDRD) Af Amer 23 L, Est GFR (MDRD) Non-Af 19 L, BUN/Creatinine Ratio 10.5, Glucose 133 H, Calcium 7.2 L Current Medications Acetaminophen (Acetaminophen 325 Mg Tablet) 650 mg PO Q6H PRN PRN PRN Reason: Pain Score 1-10/Temp > 100.7 F Last Admin: 09/25/20 13:00 Dose: 650 mg Documented by: Amiodarone HCl (Amiodarone 200 Mg Tablet) 200 mg PO DAILY CK Last Admin: 09/26/20 08:32 Dose: 200 mg Documented by: Calcium Carbonate (Calcium Carbonate 500 Mg Tablet) 1,000 mg PO Q4H PRN PRN PRN Reason: HEARTBURN Last Admin: 09/24/20 21:29 Dose: 1,000 mg Documented by: Dextrose (Dextrose 50%-Water 25 Gm/50 Ml Disp.Syrin) 0 gm IV X1 PRN; Protocol PRN Reason: Hypoglycemia Last Admin: 09/25/20 03:31 Dose: 25 gm Documented by: Glucagon (Glucagon 1 Mg/Ml Syringe) 1 mg IM .X1 PRN PRN Reason: Hypoglycemia Pantoprazole Sodium 40 mg/ (Sodium Chloride) 110 mls @ 330 mls/hr IV Q12 [facility] Last Admin: 09/26/20 10:03 Dose: 330 mls/hr Documented by: Sodium Chloride () 250 mls @ 15 mls/hr IV .[id number] PRN PRN Reason: Saline Flush Last Infusion: 09/24/20 21:58 Dose: 0 mls/hr Documented by: Sodium Chloride () 250 mls @ 15 mls/hr IV .[id number] PRN PRN Reason: Additional IVPB Infusion Insulin Human Lispro (Insulin Lispro 100 Unit/Ml Insuln.Pen) 0 unit SC ACHS [facility]; Protocol Last Admin: 09/26/20 07:02 Dose: Not Given Documented by: Insulin Human Lispro (Insulin Lispro 100 Unit/Ml Insuln.Pen) 5 unit SC TIDAC [facility] Last Admin: 09/26/20 07:03 Dose: 5 units Documented by: Melatonin (Melatonin 3 Mg Tablet) 3 mg PO QHS PRN PRN PRN Reason: INSOMNIA Metoprolol Tartrate (Metoprolol Tartrate 25 Mg Tablet) 25 mg PO BID [facility] Last Admin: 09/26/20 10:03 Dose: 25 mg Documented by: Pravastatin Sodium (Pravastatin 20 Mg Tablet) 20 mg PO QHS [facility] Last Admin: 09/25/20 22:30 Dose: 20 mg Documented by: Sodium Chloride (0.9% Saline Lock 10 Ml Syringe) 10 - 40 ml IV UD PRN PRN Reason: SALINE FLUSH Last Admin: 09/25/20 22:34 Dose: 10 ml Documented by: Tamsulosin HCl (Tamsulosin Hcl 0.4 Mg Capsule) 0.4 mg PO DAILY [facility] Last Admin: 09/26/20 08:32 Dose: 0.4 mg Documented by: Discharge Activity: Return to Normal Activity Call your doctor if you observe: Fever of 101 or Higher, Shortness of breath, Dizziness, Fainting spells, Swelling in the ankles, Chest pain, Increased palpitations (irregular heartbeat) Home Medications: Medications to take at Discharge Tamsulosin HCl [Flomax] 0.4 mg PO DAILY 01/21/16 Amiodarone HCl 200 mg PO DAILY 08/05/20 Aspirin [Aspirin, Baby] 81 mg PO DAILY@0800 tab.chew 08/28/20 insulin lispro 100 unit/mL subcutaneous pen 5 unit SC TIDAC PRN insuln.pen 09/04/20 pantoprazole 40 mg tablet,delayed release 40 mg PO DAILY tab 09/04/20 sitagliptin 100 mg tablet 100 mg PO DAILY 09/04/20 Pravastatin Sodium 20 mg PO QHS 09/23/20 Prednisone See Taper PO DAILY 09/23/20 Insulin Glargine [Lantus SoloStar Pen] 12 unit SC DAILY #0 ml 09/26/20 Metoprolol Tartrate [Lopressor (beta [place])] 25 mg PO BID #0 09/26/20 Primary Care Physician: Guanakito Quarles MD [Primary Care Provider] - Please follow up with your Primary Care Physician in: 3-5 days Please Follow Up With: Blake Mckeon DO When: 1-2 days Please Follow Up With: Cardiology When: 2-4 weeks Disposition: Home Minutes spent on discharge:: 35 Patient Condition:: Stable Medical Necessity - Tobacco Use Smoking Status: Never smoker Meaningful Use Info Meaningful Use Diagnoses (Choose all that apply): None applicable Inpatient E&M: 05042 Disch Hosp
--- NOTE | 2020-09-26 10:42 | CASEMGMT ---
This RN CM to room to discuss discharge plan with pt at this time. Pt states no concerns with going home at this time and declines need for any further therapy at this time. Pt voices no further questions/concerns/needs. SStaten RN CM
[2020-09-26 11:25] LABS: Bedside Glucose 126 mg/dL (70-110)
[2020-09-26 13:33] LABS: Pathologist Review Reviewed
--- NOTE | 2020-09-27 15:39 | CASEMGMT ---
RN CM Discharge Follow Up Phone Call: STEPHEN: Gus STRATA: 4 Call Date: 09/27/2020 Discharge Date: 09/26/2020 Time of Call: 1537 Duration: 3 min RN called pt for FU TC after recent hospitalization. Pt denies questions regarding dc instructions. He has made all of his FU appts except with cardiology but reports he will. No scripts given. Pt denies further concerns and was pleased with his hospital stay.
== END 2020-09-26 11:48 | disposition home or self-care (01) | DRG 811 ==
LOC: ED 20:57 → ICU 22:33 → PCU 09-24 15:13
PROVIDERS: Admitting Provider Hospitalist; Emergency Provider Emergency Medicine; PCP Family Medicine; Visit Provider Family Medicine
DX: D64.9 Anemia, unspecified (principal); N18.6 End stage renal disease; K86.3 Pseudocyst of pancreas; I12.0 Hypertensive chronic kidney disease with stage 5 chronic kidney disease or end stage renal disease; E86.1 Hypovolemia; I95.9 Hypotension, unspecified; D69.6 Thrombocytopenia, unspecified; K64.9 Unspecified hemorrhoids; E78.00 Pure hypercholesterolemia, unspecified; E11.649 Type 2 diabetes mellitus with hypoglycemia without coma; Z99.2 Dependence on renal dialysis; N40.0 Benign prostatic hyperplasia without lower urinary tract symptoms; E11.22 Type 2 diabetes mellitus with diabetic chronic kidney disease; D47.2 Monoclonal gammopathy; E11.65 Type 2 diabetes mellitus with hyperglycemia; K21.9 Gastro-esophageal reflux disease without esophagitis; I48.0 Paroxysmal atrial fibrillation; Z79.899 Other long term (current) drug therapy; Z90.49 Acquired absence of other specified parts of digestive tract; Z79.4 Long term (current) use of insulin; Z79.82 Long term (current) use of aspirin; Z87.19 Personal history of other diseases of the digestive system; I25.10 Atherosclerotic heart disease of native coronary artery without angina pectoris; Z95.5 Presence of coronary angioplasty implant and graft
CPT/HCPCS: 36415; 71045; 76705; 80048; 80053; 82274; 82533; 82728; 82962; 83010; 83540; 83550; 83615; 84484; 85025; 85045; 85610; 86022; 86850; 86900; 86901; 90937; 93005; 94762; 97161; 97166; 97802; 99284; J1756; J7030; J7050; P9016; A4216; G0257

== ENCOUNTER → 2020-10-01 13:03 | Outpatient (CLI) | payer MEDICARE, OTHER, SELFPAY ==
[2020-09-23 23:38] VITALS: BMI 24.1
[2020-10-01] MEDS: 0.9% NaCl Peripheral Flush Adult/Peds IV (13:26)
[2020-10-01 13:27] VITALS: BP 110/41; PULSE 83; RESP 16; TEMP 35.8; O2SAT 100; BMI 24.6
[2020-10-01 13:55] VITALS: BP 92/39; PULSE 74; RESP 16; TEMP 35.8
[2020-10-01 14:55] VITALS: BP 103/48; PULSE 73; RESP 16; TEMP 35.9; O2SAT 100
[2020-10-01 16:05] VITALS: BP 116/48; PULSE 76; RESP 16; TEMP 36.2; O2SAT 100
== END ==
PROVIDERS: PCP Family Medicine; Referring Provider Internal Medicine Hematology & Oncology; Visit Provider Internal Medicine Hematology & Oncology
DX: D69.59 Other secondary thrombocytopenia (principal)
CPT/HCPCS: 36430; 86850; 86900; 86901; 86920; 86922; J7040; P9016; A4216

== ENCOUNTER → 2020-10-11 12:54 | Outpatient (CLI) | payer MEDICARE, OTHER, SELFPAY ==
[2020-10-01 13:27] VITALS: BMI 24.6
[2020-10-11 13:00] VITALS: BP 128/44; PULSE 68; RESP 16; TEMP 36.1; O2SAT 100; BMI 23.8
[2020-10-11 13:36] VITALS: BP 98/47; PULSE 65; RESP 14; TEMP 36.5; O2SAT 100
[2020-10-11 14:38] VITALS: BP 125/56; PULSE 60; RESP 16; TEMP 36.3; O2SAT 100
[2020-10-11 15:14] VITALS: BP 122/49; PULSE 59; RESP 16; TEMP 36.5; O2SAT 100
== END ==
PROVIDERS: PCP Family Medicine; Referring Provider Internal Medicine Hematology & Oncology; Visit Provider Internal Medicine Hematology & Oncology
DX: N18.9 Chronic kidney disease, unspecified (principal); D63.1 Anemia in chronic kidney disease
CPT/HCPCS: 36430; 86850; 86900; 86901; 86920; 86922; J7040; P9016; A4216

== ENCOUNTER 2021-01-04 15:03 | Emergency (ER) | payer MEDICARE, OTHER, SELFPAY ==
[2020-11-29 11:02] VITALS: BMI 23.5
[2021-01-04 15:04] VITALS: BP 119/64; PULSE 119; RESP 16; TEMP 36.4; O2SAT 99; BMI 23.6
[2021-01-04] MEDS: Mag Hydrox/Al Hydrox/Simeth 30 ML UDC PO (15:33)
[2021-01-04] MEDS: 0.9% Normal Saline 1,000 ML 1000 ML IV (15:38)
[2021-01-04 15:47] LABS: Absolute Lymphocyte Count 0.43 X10^3/uL (0.83-4.51); Absolute Neutrophil Count 9.8 X10^3/uL (2.0-7.7); Basophil# 0.03 X10^3/uL; Basophil% 0.3 % (0-1); Eosinophil# 0.14 X10^3/uL; Eosinophils% 1.3 % (0-5); Hematocrit 32.4 % (40-54); Hemoglobin 10.2 g/dL (13.0-16.5); Lymphocyte # 0.43 X10^3/ul (0.83-4.51); Lymphocyte % 3.9 % (19-41); Mean Corp Hgb Conc 31.5 g/dL (32-36); Mean Corpuscular Hgb 29.1 pg (27.0-32.0); Mean Corpuscular Volume 92.6 fL (80-94); Mean Platelet Vol. 13.2 fl (6.2-12.0); Monocyte# 0.25 X10^3/uL; Monocyte% 2.3 % (0-10); NRBC Flagged by Analyzer 0 % (0-5); Neutrophil # 9.77 X10^3/uL (2.7-7.7); Neutrophil % 89.4 % (47-70); POSITIVE COUNT YES; POSITIVE DIFFERENTIAL YES; Platelet Count 85 K/mm3 (150-450); RBC Distribution Width CV 18.1 % (11.6-14.6); RBC Distribution Width SD 61.1 fl (35.1-43.9); White Blood Count 10.9 K/mm3 (4.4-11.0)
[2021-01-04 15:53] LABS: Differential Indicated SCAN CRITERIA MET
[2021-01-04 16:10] LABS: ALB/GLOB Ratio 0.6 RATIO (0.9-2.4); AST(SGOT) 82 U/L (15-37); Alanine Aminotransfer ALT/SGPT 53 U/L (16-61); Albumin, Serum 2.1 g/dL (3.2-5.0); Alkaline Phosphatase 201 U/L (45-117); Anion Gap 5 (5-15); BUN 27 mg/dL (7-18); BUN/Creat Ratio 8.8 RATIO (10-20); Calcium,Total 7.7 mg/dL (8.5-10.1); Chloride 101 mmol/L (98-107); Creatinine, Serum 3.08 mg/dL (0.70-1.30); EST Glomerular Filtration Rate 21 mL/min (>60); Est Glom Filt Rate - Afr Amer 26 mL/min (>60); Estimated Creatinine Clearance 21.07 ml/min; Globulin 3.4 g/dL (2.2-4.2); Glucose 97 mg/dL (74-106); Lipase < 10 U/L (73-393); Potassium 3.6 mmol/L (3.5-5.1); Protein, Total 5.5 g/dL (6.4-8.2); Sodium Level 137 mmol/L (136-145)
[2021-01-04 16:30] LABS: Differential Comment SCANNED; Platelet Estimate MOD DEC (ADEQ)
--- NOTE | 2021-01-04 17:18 | ED.VIS.GI ---
HPI HPI - GI History of Present Illness Chief Complaint: Abd Pain Informant: patient and family Narrative Narrative: Patient presents with abdominal discomfort for the past 4 weeks. States burning sensation. No vomiting or diarrhea. Normal bowel movements. Patient reports recent diagnosed with pancreatic cancer with metastasis to the liver followed by Dr. Mckeon. Chemotherapy started 2 days ago. Currently on Protonix. He states referred to palliative medicine however appointments not for 10 days. He cannot wait therefore came here. States he has been on dialysis for the past 6 months, Wednesday, Wednesday, Fridays with last treatment yesterday. Reviewing records, in July of this year biopsies findings of interstitial nephritis, gastric biopsies with acute gastritis, negative H. pylori. He had bone marrow biopsies to rule out multiple myeloma reported negative per patient and son. He had a CAT scan abdomen July of this year noting left renal cyst. He had ultrasound the liver and pancreas September 24 findings of a cystic mass up to 5 cm. There was no additional images since then. Discussion with patient and son outpatient repeat CTs were done through [facility] reporting the findings which initiated treatment. [facility] Medical History (Updated 01/04/21 @ 17:[address] Bk Mendiola, DO) Atherosclerotic heart disease of [place] coronary artery without angina pectoris Body mass index (bmi) 29.0-29.9, adult CAD (coronary artery disease) Chest pain Diabetes mellitus, type II Essential hypertension History of left heart catheterization (LHC) (~05/16/19) Paroxysmal atrial fibrillation Pure hypercholesterolemia Wide-complex tachycardia Home Medications tamsulosin 0.4 mg PO DAILY 01/21/16 [History Last Taken 09/22/20] amiodarone 200 mg PO DAILY 08/05/20 [History Last Taken 09/23/20] aspirin 81 mg PO DAILY@0800 tab.chew 08/28/20 [Rx Last Taken 09/23/20] insulin lispro 100 unit/mL subcutaneous pen 5 unit SC TIDAC PRN insuln.pen 09/04/20 [History Last Taken 09/23/20] pantoprazole 40 mg tablet,delayed release 40 mg PO DAILY tablet 09/04/20 [History Last Taken 09/23/20] sitagliptin 100 mg tablet 25 mg PO DAILY 09/04/20 [History Last Taken 09/23/20] pravastatin 20 mg PO QHS 09/23/20 [History Last Taken 09/22/20] metoprolol tartrate 50 mg tablet 25 mg PO .COMPLEX #0 10/23/20 [Rx Last Taken Unknown] apixaban [Eliquis] 2.5 mg PO DAILY 01/04/21 [History Last Taken Unknown] docusate sodium [Colace] 100 mg PO DAILY #30 cap 01/04/21 [Rx Last Taken Unknown] insulin glargine 8 unit SC DAILY 01/04/21 [History Last Taken Unknown] oxycodone-acetaminophen [Percocet] 1 tab PO Q6H PRN 3 Days #12 tab 01/04/21 [Rx Last Taken Unknown] sucralfate [Carafate] 1 g PO Q6H #60 tab 01/04/21 [Rx Last Taken Unknown] Allergy/AdvReac Type Severity Reaction Status Date / Time scopolamine AdvReac HALLUCINATI Verified 01/04/21 15:03 ONS SOME TYPE OF IV DYE FOR AdvReac backache Uncoded 01/04/21 15:03 ULTRA BRYCE Family History Father CAD (coronary artery disease) Mother Alzheimers disease Sister Breast cancer Surgical History History of ERCP Hx laparoscopic cholecystectomy Social History Smoking Status: Never smoker alcohol intake: never substance use type: does not use diet: diabetic caffeine: No what type of physical activity do you participate in: none seatbelt use: always do you feel safe at home: Yes ROS ROS ED Constitutional Constitutional ED: Denies chills, fever(s) or sweats Eyes Eyes: Denies change in vision ENT ENT ED: Denies dysphagia or sore throat Cardiovascular Cardiovascular: Denies chest pain, leg edema, palpitations or racing heartbeat Respiratory/Chest Respiratory/Chest: Denies cough, dyspnea or dyspnea on exertion Gastrointestinal Gastrointestinal: Reports abdominal pain; Denies diarrhea, nausea or vomiting Genitourinary Genitourinary ED: Denies dysuria, hematuria or urinary frequency Musculoskeletal Musculoskeletal: Denies back pain, extremity pain or neck pain Integumentary Denies rash or wounds Neurologic Neurologic: Denies headache(s), paresthesias or weakness EXAM Physical Exam Const Vital Signs: 01/04/21 15:04 Temperature 97.5 F L Temperature Source Temporal Pulse Rate 119 H Respiratory Rate 16 Blood Pressure 119/64 Blood Pressure Mean 82 Pulse Ox 99 Oxygen Delivery Method Room Air Positive well nourished and well developed General Appearance ED: well developed and NAD HEENT Reports moist mucous membranes normocephalic and atraumatic Eyes PERRL, EOMs intact bilaterally and conjunctivae normal General Eye ED: Yes normal appearance of both eyes Neck no lymphadenopathy and supple General: Negative for tenderness Chest Wall Chest Narrative: Right upper chest wall Vas-Cath clean, dry, intact. Chest: Negative for tenderness Resp normal respiratory effort and normal air movement Effort and Inspection: symmetric chest movement; Negative for respiratory distress Cardio regular rate, regular rhythm and no murmurs Peripheral Pulses: pulses 2+ throughout GI normal to inspection, nondistended, normoactive bowel sounds, non-tender and non-distended Auscultation: normoactive bowel sounds Palpation: soft; Negative for guarding or rebound tenderness present Back/Spine no CVA tenderness and no thoracic nor lumbar tenderness Extremity normal to inspection General Extremety ED: Negative for edema or tenderness General Extremity: Negative for edema Neuro oriented x3 and no sensory deficits noted Sensorium / Orientation: awake and alert Skin no rashes or lesions noted and no wounds MDM MDM MDM Narrative Medical decision making narrative: Patient with a nonsurgical abdomen. Reporting persistent burning sensations. He is on Protonix. From records a history of gastritis from biopsy. With his pancreatic cancer history I did check labs lipase was normal. He has end-stage renal disease on dialysis elevated creatinine his potassium 3.6. Anemia with thrombocytopenia however labs were increased in comparison of previously. He was given a GI cocktail with improvement of symptoms. Discussed with patient will increase his Protonix to twice a day he will be placed on Carafate. With his cancer history, short prescription for Percocet to use as needed along with stool softeners. He will follow-up as an outpatient. Lab Data Attestation: I reviewed the patient's lab results. Labs: Laboratory Results - last 24 hr 01/04/21 01/04/21 15:40 15:40 WBC 10.9 RBC 3.50 L Hgb 10.2 L Hct 32.4 L MCV 92.6 MCH 29.1 MCHC 31.5 L RDW Std Deviation 61.1 H RDW Coeff of [place]ano 18.1 H Plt Count 85 L MPV 13.2 H Immature Gran % (Auto) 2.800 H Neut % (Auto) 89.4 H Lymph % (Auto) 3.9 L [place] % (Auto) 2.3 Eos % (Auto) 1.3 Baso % (Auto) 0.3 Absolute Neuts (auto) 9.8 H Absolute Lymphs (auto) 0.43 L Nucleated RBC % 0 Differential Comment SCANNED Platelet Estimate MOD DEC Sodium 137 Potassium 3.6 Chloride 101 Carbon Dioxide 31.0 Anion Gap 5 BUN 27 H Creatinine 3.08 H Estim Creat Clear Calc 21.07 Est GFR (MDRD) Af Amer 26 L Est GFR (MDRD) Non-Af 21 L BUN/Creatinine Ratio 8.8 L Glucose 97 Calcium 7.7 L Total Bilirubin 0.50 AST 82 H ALT 53 Alkaline Phosphatase 201 H Total Protein 5.5 L Albumin 2.1 L Globulin 3.4 Albumin/Globulin Ratio 0.6 L Lipase < 10 L Discharge Plan Triage Chief Complaint: Abd Pain ED Provider: Bk Mendiola Dx/Rx/DC Orders Clinical Impression: Gastritis, Anemia, Thrombocytopenia, ESRD (end stage renal disease) on dialysis, History of pancreatic cancer Instructions: ED Anemia, Type Not Specified (Adult), ED Chronic Kidney Disease (CKD), ED Gastritis (Adult) Prescriptions: New sucralfate [Carafate] 1 gram tablet 1 g PO Q6H Qty: 60 RF: 0 oxycodone-acetaminophen [Percocet] 5-325 mg tablet 1 tab PO Q6H PRN (Reason: pain) 3 Days Qty: 12 RF: 0 docusate sodium [Colace] 100 mg capsule 100 mg PO DAILY Qty: 30 RF: 0 No Action Januvia 100 mg tablet 25 mg PO DAILY RF: 0 pantoprazole 40 mg tablet,delayed release (DR/EC) 40 mg PO DAILY RF: 0 insulin lispro 100 unit/mL insulin pen 5 unit SC TIDAC PRN (Reason: dm) RF: 0 tamsulosin 0.4 MG capsule 0.4 mg PO DAILY RF: 0 amiodarone 200 MG tablet 200 mg PO DAILY RF: 0 aspirin 81 MG tablet,chewable 81 mg PO DAILY@0800 RF: 0 pravastatin 20 MG tablet 20 mg PO QHS RF: 0 Eliquis 2.5 mg tablet 2.5 mg PO DAILY RF: 0 insulin glargine 100 unit/mL (3 mL) insulin pen 8 unit SC DAILY RF: 0 metoprolol tartrate 50 mg tablet 25 mg PO .COMPLEX Qty: 0 RF: 0 Primary Care Provider: Guanakito Quarles Referrals: Guanakito Quarles MD [Primary Care Provider] - 1 Week Activity Restrictions/Additional Instructions: Increase your Protonix to twice a day for the next 2 weeks. Disposition Disposition: Home, self care
== END 2021-01-04 17:48 | disposition home or self-care (01) ==
PROVIDERS: Emergency Provider Emergency Medicine; PCP Family Medicine
DX: K29.70 Gastritis, unspecified, without bleeding (principal); D69.6 Thrombocytopenia, unspecified; I25.10 Atherosclerotic heart disease of native coronary artery without angina pectoris; I12.0 Hypertensive chronic kidney disease with stage 5 chronic kidney disease or end stage renal disease; E11.22 Type 2 diabetes mellitus with diabetic chronic kidney disease; N18.6 End stage renal disease; I48.0 Paroxysmal atrial fibrillation; E78.00 Pure hypercholesterolemia, unspecified; Z99.2 Dependence on renal dialysis; Z79.899 Other long term (current) drug therapy; Z79.82 Long term (current) use of aspirin; Z79.4 Long term (current) use of insulin; Z79.01 Long term (current) use of anticoagulants
CPT/HCPCS: 80053; 83690; 85025; 96360; 96361; 99283; J7030; A4216

== ENCOUNTER → 2021-02-14 10:29 | Outpatient (CLI) | payer MEDICARE, OTHER, SELFPAY ==
[2021-02-14] VITALS (7 sets, daily range): BP systolic 101–131; BP diastolic 45–67; PULSE 63–84; RESP 16; TEMP 35.7–36.1; O2SAT 97–100; BMI 23.7
[2021-02-14] MEDS: 0.9% NaCl VAD Flush IV (10:39)
== END ==
PROVIDERS: PCP Family Medicine; Referring Provider Internal Medicine Hematology & Oncology; Visit Provider Internal Medicine Hematology & Oncology
DX: D64.81 Anemia due to antineoplastic chemotherapy (principal); T45.1X5A Adverse effect of antineoplastic and immunosuppressive drugs, initial encounter; Y92.9 Unspecified place or not applicable
CPT/HCPCS: 36430; 86850; 86900; 86901; 86920; 86922; J7040; P9016; A4216

== ENCOUNTER 2021-02-17 05:32 | Emergency (ER) | payer MEDICARE, OTHER, SELFPAY ==
[2021-02-14 10:33] VITALS: BMI 23.7
[2021-02-17 05:34] VITALS: BP 116/60; PULSE 81; RESP 16; TEMP 36.5; O2SAT 96; BMI 24.6
--- NOTE | 2021-02-17 05:42 | CT_ITS ---
STUDY: CT ABDOMEN AND PELVIS WITHOUT CONTRAST REASON FOR EXAM: Male, 75 years old. Pain. TECHNIQUE: Transaxial images were obtained from the dome of the diaphragm to the symphysis pubis without oral contrast, and without intravenous contrast. Sagittal and coronal images were reconstructed. Individualized dose optimization techniques were used for this CT. COMPARISON: 08/05/2020 CT abdomen pelvis. FINDINGS: Partially visualized lower chest: Small bilateral pleural effusions with adjacent subsegmental atelectasis. Calcified granulomas lung bases. Mild cardiomegaly and coronary artery atherosclerosis. Liver: Numerous suspicious hypodense hepatic masses are new compared to prior. Largest 5 cm diameter in the posterior, inferior, medial left lobe. Gallbladder and biliary tree: Status post cholecystectomy. No biliary ductal dilation. Pancreas: Atrophy of the pancreatic tail and body with mild dilation of the duct. Soft tissue fullness of the pancreatic head, and of the pancreatic tail adjacent to the spleen, new compared to prior. Spleen: Normal size, no splenic lesions. Adrenal glands: No concerning masses. Kidneys and ureters: No hydronephrosis or obstructing renal stones. No concerning masses. No ureteral dilation. 3 small nonobstructing right renal stones. Simple cyst lower pole left kidney. Bowel: Normal appendix. Wall thickening of the stomach particularly the distal gastric body with mild adjacent edema. No bowel obstruction. Remainder of the bowel unremarkable. Urinary bladder: No stones or wall thickening. Reproductive: Mildly enlarged prostate similar to previous. Vascular: No abdominal aortic aneurysm. Moderate atherosclerosis. Retroperitoneal and peritoneal spaces: Small amount of ascites. Osseous: No acute osseous abnormality. Abdominal and pelvic wall: No concerning findings. CT/Abdomen/Pelvis without Cont IMPRESSION: Interval development of numerous suspicious hypodense hepatic masses almost certainly metastatic disease. The most likely source is pancreatic cancer with 2 suspicious areas of soft tissue expansion of the pancreatic parenchyma in the pancreatic head and in the tail. There is also wall thickening of the distal stomach; most likely gastritis with possible underlying peptic ulcer disease. Gastric neoplasm also possible but less likely. Small amount of ascites and small pleural effusions. Several other chronic findings as above. Electronically Signed: Aldo Tate MD at 7:00 EDT Tel , Service support ,
--- NOTE | 2021-02-17 05:43 | ED.VIS.GI ---
HPI HPI - GI History of Present Illness Chief Complaint: Abd Pain Detail of Chief Complaint: Abdominal pain x2 days Informant: patient Abdominal Pain/Flank Pain Current Severity: 610 Nausea/Vomiting/Emesis GI Symptom: Positive for Nausea; Negative for Vomiting Narrative Narrative: Patient presents to the emergency department complaint of abdominal pain that started several days ago. Patient states that he is had similar pain in the past. Patient currently being treated for liver cancer and pancreatic cancer. Last chemotherapy was 2 weeks ago. Patient states he woke up this morning and the pain was too severe and did not feel like he did go to dialysis. Patient rates his pain a 6 or 7 out of 10 with movement or breathing but at rest may be a 4 out of 10. He denies blood in stool or black tarry stool. Patient denies fevers. He denies diarrhea. Prior similar symptoms: Yes PFSH PFSH Medical History (Updated 02/17/21 @ 07:[address] Roderick Sherwood, DO) Atherosclerotic heart disease of [place] coronary artery without angina pectoris Body mass index (bmi) 29.0-29.9, adult CAD (coronary artery disease) Chest pain Diabetes mellitus, type II Essential hypertension History of left heart catheterization (LHC) (~05/16/19) Paroxysmal atrial fibrillation Pure hypercholesterolemia Wide-complex tachycardia Home Medications tamsulosin 0.4 mg PO DAILY 01/21/16 [History Last Taken 09/22/20] amiodarone 200 mg PO DAILY 08/05/20 [History Last Taken 09/23/20] aspirin 81 mg PO DAILY@0800 tab.chew 08/28/20 [Rx Last Taken 09/23/20] pantoprazole 40 mg tablet,delayed release 40 mg PO DAILY tablet 09/04/20 [History Last Taken 09/23/20] sitagliptin 100 mg tablet 25 mg PO DAILY 09/04/20 [History Last Taken 09/23/20] pravastatin 20 mg PO QHS 09/23/20 [History Last Taken 09/22/20] metoprolol tartrate 50 mg tablet 25 mg PO .COMPLEX #0 10/23/20 [Rx Last Taken Unknown] docusate sodium [Colace] 100 mg PO DAILY #30 cap 01/04/21 [Rx Last Taken Unknown] sucralfate [Carafate] 1 g PO Q6H #60 tab 01/04/21 [Rx Last Taken Unknown] hydrocodone-acetaminophen 1 tab PO Q4H PRN PRN 3 Days #15 tablet 02/17/21 [Rx Last Taken Unknown] hydrocodone-acetaminophen [[place]] 1 tab PO BID PRN 02/17/21 [History Last Taken Unknown] insulin glargine [Lantus Solostar U-100 Insulin] 8 unit SUBCUT QPM 02/17/21 [History Last Taken Unknown] insulin lispro [Humalog KwikPen Insulin] unit SUBCUT TID 02/17/21 [History Last Taken Unknown] sogrnz-vlfujduv-vdsenct [Creon] 1 cap PO TID 02/17/21 [History Last Taken Unknown] midodrine 10 mg PO 02/17/21 [History Last Taken Unknown] sitagliptin [Januvia] 25 mg PO DAILY 02/17/21 [History Last Taken Unknown] sucralfate [Carafate] 1 g PO BID #60 tab 02/17/21 [Rx Last Taken Unknown] Allergy/AdvReac Type Severity Reaction Status Date / Time scopolamine AdvReac HALLUCINATI Verified 02/17/21 05:38 ONS SOME TYPE OF IV DYE FOR AdvReac backache Uncoded 02/17/21 05:38 ULTRA BRYCE Family History Father CAD (coronary artery disease) Mother Alzheimers disease Sister Breast cancer Surgical History History of ERCP Hx laparoscopic cholecystectomy Social History Smoking Status: Never smoker alcohol intake: never substance use type: does not use diet: diabetic caffeine: No what type of physical activity do you participate in: none seatbelt use: always do you feel safe at home: Yes ROS ROS ED Constitutional Constitutional ED: Reports systems reviewed and no addt'l complaints, except as documented; Denies body ache(s), change in weight or chills Eyes Eyes: Denies acute decrease in peripheral vision, change in vision, double vision or loss of vision ENT ENT ED: Reports none; Denies ear pain, lip swelling, loss taste/smell, neck pain, otalgia or sore throat Cardiovascular Cardiovascular: Reports none; Denies abdominal pain, chest pain with activity, leg edema, lightheadedness, palpitations, rapid heart rate or syncope Respiratory/Chest Respiratory/Chest: Reports none; Denies change in mental status, dry cough, dyspnea, hemoptysis, shortness of breath at rest or shortness of breath with exertion Gastrointestinal Gastrointestinal: Reports none, abdominal pain and nausea; Denies change in stool character, diarrhea, hematemesis, hematochezia, melena, rectal bleeding or vomiting Genitourinary Genitourinary ED: Reports none; Denies abdominal discomfort, anuria, dysuria, genital pain or polyuria Musculoskeletal Musculoskeletal: Reports none; Denies arthralgias, back pain, difficulty walking, extremity pain, muscle weakness or myalgias Integumentary Reports none; Denies abscess or rash Neurologic Neurologic: Reports none; Denies abnormal gait, confusion, focal weakness, frequent falls, headache(s), loss of vision, numbness, paresthesias, radicular pain, vertigo or weakness Psychiatric Psychiatric: Reports systems reviewed and no addt'l complaints, except as documented and none; Denies behavioral changes, confusion, difficulty concentrating, hallucinations, suicidal ideation, tactile hallucinations or visual hallucinations Endocrine Endocrinology: Denies none, cold intolerance, excessive sweating, fatigue or heat intolerance Hematologic/Lymphatic Hematologic/Lymphatic: Reports none; Denies anemia, easy bleeding or easy bruising Allergic/Immunologic Allergic/Immunologic ED: Denies as per HPI, none, lip swelling, mouth swelling, throat swelling, tongue swelling or hives EXAM Physical Exam Const Vital Signs: 02/17/21 05:34 Temperature 97.7 F L Temperature Source Temporal Pulse Rate 81 Respiratory Rate 16 Blood Pressure 116/60 Blood Pressure Mean 78 Pulse Ox 96 Oxygen Delivery Method Room Air Positive well nourished and well developed General Appearance ED: well developed and NAD HEENT Reports TM's clear and moist mucous membranes normocephalic and atraumatic; Negative for trauma or tenderness Tympanic Membrane ED: Yes TM's clear Eyes PERRL and EOMs intact bilaterally General Eye ED: Negative for pale conjunctiva or scleral icterus Neck no lymphadenopathy, supple and no JVD General: Negative for tenderness Chest Wall inspection of chest normal and palpation of chest normal Chest: Negative for tenderness Resp normal respiratory effort and clear to auscultation bilaterally Effort and Inspection: Negative for respiratory distress or pain with movement Auscultation: Negative for rhonchi, wheezes or diminished lung sounds Cardio regular rate, regular rhythm, S1 normal heart sound, S2 normal heart sound and no murmurs Peripheral Pulses: pulses 2+ throughout GI normal to inspection, nondistended, normoactive bowel sounds, soft to palpation, non-tender, non-distended and no masses GI Narrative: Patient with diffuse tenderness in the upper abdomen right upper quadrant, epigastric, and left upper quadrant. There is mild guarding. There is no rebound, rigidity, or peritoneal signs. Palpation: tender Back/Spine no CVA tenderness and no thoracic nor lumbar tenderness Extremity normal to inspection General Extremety ED: Negative for edema General Extremity: Negative for edema Neuro oriented x3, CN's II-XII intact bilaterally, no sensory deficits noted and gait normal Sensorium / Orientation: awake, alert, oriented to person, oriented to place and oriented to time Motor Exam: strength 5/5 throughout and strength abnormal Psych mental status grossly normal Skin no rashes or lesions noted and no wounds MDM MDM MDM Narrative Medical decision making narrative: Discussed results with patient. Patient prognosis is poor with his pancreatic cancer with metastasis to the liver. On CT patient also noted to have thickening of the stomach wall consistent with gastritis or start of an ulcer. Patient is on Protonix and had been on Carafate but ran out. At this point his abdomen is benign and feel he can be discharged to home. He is not will go to dialysis this morning because he just feels fatigued and does not feel like he can go. Patient is comfortable going home and resting. He has [place] for pain but is about to run out so I will write him a prescription for few more [place]. Patient advised to return if worsening pain, fever, vomiting, blood in the stool, or condition should worsen anyway. Lab Data Attestation: I reviewed the patient's lab results. Labs: Laboratory Results - last 24 hr 02/17/21 02/17/21 02/17/21 06:03 06:03 06:03 WBC 6.3 RBC 2.98 L Hgb 9.2 L Hct 27.9 L MCV 93.6 MCH 30.9 MCHC 33.0 RDW Std Deviation 62.1 H RDW Coeff of [place] 19.1 H Plt Count 102 L MPV 12.7 H Immature Gran % (Auto) 0.800 Neut % (Auto) 80.7 H Lymph % (Auto) 5.3 L [place] % (Auto) 13.0 H Eos % (Auto) 0.0 Baso % (Auto) 0.2 Absolute Neuts (auto) 5.1 Absolute Lymphs (auto) 0.33 L Nucleated RBC % 0 Reactive Lymphocytes 1+ Sodium 134 L Potassium 4.1 Chloride 99 Carbon Dioxide 28.0 Anion Gap 7 BUN 31 H Creatinine 3.99 H Estim Creat Clear Calc 16.26 Est GFR (MDRD) Af Amer 19 L Est GFR (MDRD) Non-Af 16 L BUN/Creatinine Ratio 7.8 L Glucose 119 H Lactic Acid 2.3 H* Calcium 7.5 L Total Bilirubin 1.10 H AST 19 ALT 17 Alkaline Phosphatase 131 H Total Protein 5.0 L Albumin 1.6 L Globulin 3.4 Albumin/Globulin Ratio 0.5 L Lipase < 10 L Radiography Diagnostic Testing: Radiology Impression Abdomen/Pelvis CT 02/17/21 05:42 IMPRESSION: Interval development of numerous suspicious hypodense hepatic masses almost certainly metastatic disease. The most likely source is pancreatic cancer with 2 suspicious areas of soft tissue expansion of the pancreatic parenchyma in the pancreatic head and in the tail. There is also wall thickening of the distal stomach; most likely gastritis with possible underlying peptic ulcer disease. Gastric neoplasm also possible but less likely. Small amount of ascites and small pleural effusions. Several other chronic findings as above. Electronically Signed: Aldo Tate MD at 7:00 EDT Tel , Service support , Discharge Plan Triage Chief Complaint: Abd Pain ED Provider: Roderick Sherwood Dx/Rx/DC Orders Clinical Impression: Abdominal pain, Chronic GERD Instructions: Abdominal Pain Prescriptions: New sucralfate [Carafate] 1 gram tablet 1 g PO BID Qty: 60 RF: 0 hydrocodone-acetaminophen 5-325 mg tablet 1 tab PO Q4H PRN PRN (Reason: Pain) 3 Days Qty: 15 RF: 0 No Action Januvia 100 mg tablet 25 mg PO DAILY RF: 0 pantoprazole 40 mg tablet,delayed release (DR/EC) 40 mg PO DAILY RF: 0 tamsulosin 0.4 MG capsule 0.4 mg PO DAILY RF: 0 amiodarone 200 MG tablet 200 mg PO DAILY RF: 0 aspirin 81 MG tablet,chewable 81 mg PO DAILY@0800 RF: 0 pravastatin 20 MG tablet 20 mg PO QHS RF: 0 sucralfate [Carafate] 1 gram tablet 1 g PO Q6H Qty: 60 RF: 0 docusate sodium [Colace] 100 mg capsule 100 mg PO DAILY Qty: 30 RF: 0 hydrocodone-acetaminophen [[place]] 5-325 mg Tablet 1 tab PO BID PRN (Reason: Pain) RF: 0 midodrine 10 mg Tablet 10 mg PO RF: 0 insulin lispro [Humalog KwikPen Insulin] 100 unit/mL Insulin Pen SUBCUT TID RF: 0 Januvia 25 mg Tablet 25 mg PO DAILY RF: 0 Lantus Solostar U-100 Insulin 100 unit/mL (3 mL) Insulin Pen 8 unit SUBCUT QPM RF: 0 Creon 12,000-38,000 -60,000 unit Capsule,Delayed Release(Dr/Ec) 1 cap PO TID RF: 0 metoprolol tartrate 50 mg tablet 25 mg PO .COMPLEX Qty: 0 RF: 0 Primary Care Provider: Guanakito Quarles Referrals: Guanakito Quarles MD [Primary Care Provider] - 3-5 Days Blake Mckeon DO [STAFF PHYSICIAN] - 3-5 Days Disposition Disposition: Home, Self Care
[2021-02-17] MEDS: Ondansetron 4 MG/2 ML Vial IV (06:10)
[2021-02-17] MEDS: 0.9% Normal Saline 1,000 ML 15 ML IV (06:10)
[2021-02-17 06:11] LABS: Absolute Lymphocyte Count 0.33 X10^3/uL (0.83-4.51); Absolute Neutrophil Count 5.1 X10^3/uL (2.0-7.7); Basophil# 0.01 X10^3/uL; Basophil% 0.2 % (0-1); Hematocrit 27.9 % (40-54); Hemoglobin 9.2 g/dL (13.0-16.5); Lymphocyte # 0.33 X10^3/ul (0.83-4.51); Lymphocyte % 5.3 % (19-41); Mean Corpuscular Hgb 30.9 pg (27.0-32.0); Mean Corpuscular Volume 93.6 fL (80-94); Mean Platelet Vol. 12.7 fl (6.2-12.0); Monocyte# 0.81 X10^3/uL; NRBC Flagged by Analyzer 0 % (0-5); Neutrophil # 5.05 X10^3/uL (2.7-7.7); Neutrophil % 80.7 % (47-70); POSITIVE DIFFERENTIAL YES; POSITIVE MORPHOLOGY YES; Platelet Count 102 K/mm3 (150-450); RBC Distribution Width CV 19.1 % (11.6-14.6); RBC Distribution Width SD 62.1 fl (35.1-43.9); Red Blood Count 2.98 M/mm3 (4.6-6.2); White Blood Count 6.3 K/mm3 (4.4-11.0)
[2021-02-17] MEDS: Morphine 4 MG/ML Syringe IV (06:11)
[2021-02-17 06:22] LABS: Differential Indicated SCAN CRITERIA MET
[2021-02-17 06:28] LABS: ALB/GLOB Ratio 0.5 RATIO (0.9-2.4); AST(SGOT) 19 U/L (15-37); Alanine Aminotransfer ALT/SGPT 17 U/L (16-61); Albumin, Serum 1.6 g/dL (3.2-5.0); Alkaline Phosphatase 131 U/L (45-117); Anion Gap 7 (5-15); BUN 31 mg/dL (7-18); BUN/Creat Ratio 7.8 RATIO (10-20); Calcium,Total 7.5 mg/dL (8.5-10.1); Chloride 99 mmol/L (98-107); Creatinine, Serum 3.99 mg/dL (0.70-1.30); EST Glomerular Filtration Rate 16 mL/min (>60); Est Glom Filt Rate - Afr Amer 19 mL/min (>60); Estimated Creatinine Clearance 16.26 ml/min; Globulin 3.4 g/dL (2.2-4.2); Glucose 119 mg/dL (74-106); Lipase < 10 U/L (73-393); Potassium 4.1 mmol/L (3.5-5.1); Sodium Level 134 mmol/L (136-145)
[2021-02-17 06:29] LABS: Reactive Lymphocyte 1+
[2021-02-17 06:51] LABS: Lactic Acid 2.3 mmol/L (0.4-1.9)
[2021-02-17 08:15] VITALS: BP 119/53; PULSE 75; RESP 18; O2SAT 96
[2021-02-17 10:07] LABS: Reflex Lactate? Y
== END 2021-02-17 08:18 | disposition home or self-care (01) ==
PROVIDERS: Emergency Provider Emergency Medicine; PCP Family Medicine
DX: R10.9 Unspecified abdominal pain (principal); K21.9 Gastro-esophageal reflux disease without esophagitis; C25.9 Malignant neoplasm of pancreas, unspecified; C78.7 Secondary malignant neoplasm of liver and intrahepatic bile duct; I10 Essential (primary) hypertension; I48.0 Paroxysmal atrial fibrillation; I47.2 Ventricular tachycardia; I25.10 Atherosclerotic heart disease of native coronary artery without angina pectoris; E11.9 Type 2 diabetes mellitus without complications; E78.00 Pure hypercholesterolemia, unspecified; Z79.4 Long term (current) use of insulin; Z79.82 Long term (current) use of aspirin; Z79.899 Other long term (current) drug therapy
CPT/HCPCS: 74176; 80053; 83605; 83690; 85025; 96361; 96374; 96375; 99282; J7030; A4216; J2405

== ENCOUNTER 2021-02-22 02:28 | Inpatient (IN) | payer MEDICARE, OTHER, SELFPAY ==
[2021-02-22] VITALS (32 sets, daily range): BP systolic 89–131; BP diastolic 48–86; PULSE 75–142; RESP 15–24; TEMP 36.7–37.3; O2SAT 93–98; BMI 25.8; BMI 26.2
--- NOTE | 2021-02-22 03:13 | RAD_ITS ---
STUDY: X-RAY CHEST REASON FOR EXAM: Male, 75 years old. Weakness TECHNIQUE: AP COMPARISON: 09/23/2020 FINDINGS: Stable right tunneled catheter. The lungs demonstrate no focal consolidative change. Minimal linear left lung base atelectasis. There is no demonstrated pleural abnormality. Normal size heart. Normal mediastinum and yanely. Normal visualized pulmonary arteries. Normal visualized aortic arch and descending thoracic aorta. There are diffuse degenerative changes of the visualized thoracic spine. Normal visualized ribs, clavicles, and shoulders. There is no demonstrated abnormality of the visualized soft tissue structures of the upper abdomen. RAD/Chest 1 View (Portable) IMPRESSION: Minimal left lung base atelectasis. No focal consolidative lung changes. Electronically Signed: David Rosa MD at 4:14 EDT Tel , Service support ,
--- NOTE | 2021-02-22 03:13 | EKG12_ITS ---
Test Reason : WEAKNESS Blood Pressure : / mmHG Vent. Rate : 144 BPM Atrial Rate : 138 BPM P-R Int : 000 ms QRS Dur : 082 ms QT Int : 322 ms P-R-T Axes : 000 012 164 degrees QTc Int : 498 ms Atrial fibrillation with rapid ventricular response Nonspecific ST and T wave abnormality Abnormal ECG Confirmed by ARTURO EATON, FELIZ ([id number]), rewrite editor LO ARRINGTON ([id number]) on 02/27/2021 12:57:10 PM Referred By: JULIO Confirmed By:FELIZ MORRIS MD
[2021-02-22 03:36] LABS: Hemoglobin 9.9 g/dL (13.0-16.5); Mean Corp Hgb Conc 31.9 g/dL (32-36); Mean Corpuscular Hgb 31.3 pg (27.0-32.0); Mean Corpuscular Volume 98.1 fL (80-94); Mean Platelet Vol. 12.3 fl (6.2-12.0); POSITIVE COUNT YES; POSITIVE DIFFERENTIAL YES; POSITIVE MORPHOLOGY YES; Platelet Count 255 K/mm3 (150-450); RBC Distribution Width CV 19.8 % (11.6-14.6); RBC Distribution Width SD 68.5 fl (35.1-43.9); Red Blood Count 3.16 M/mm3 (4.6-6.2); White Blood Count 27.3 K/mm3 (4.4-11.0)
[2021-02-22 03:55] LABS: Differential Indicated MANUAL DIFF
[2021-02-22 03:56] LABS: ALB/GLOB Ratio 0.4 RATIO (0.9-2.4); AST(SGOT) 10 U/L (15-37); Alanine Aminotransfer ALT/SGPT 12 U/L (16-61); Albumin, Serum 1.6 g/dL (3.2-5.0); Alkaline Phosphatase 139 U/L (45-117); Anion Gap 11 (5-15); BUN 24 mg/dL (7-18); BUN/Creat Ratio 7.2 RATIO (10-20); Calcium,Total 7.7 mg/dL (8.5-10.1); Chloride 97 mmol/L (98-107); Creatinine, Serum 3.32 mg/dL (0.70-1.30); EST Glomerular Filtration Rate 19 mL/min (>60); Est Glom Filt Rate - Afr Amer 23 mL/min (>60); Estimated Creatinine Clearance 19.54 ml/min; Globulin 3.6 g/dL (2.2-4.2); Glucose 225 mg/dL (74-106); Potassium 4.2 mmol/L (3.5-5.1); Protein, Total 5.2 g/dL (6.4-8.2); Sodium Level 136 mmol/L (136-145); Troponin-I HS 40.2 pg/mL (3.0-78.5)
[2021-02-22 04:00] LABS: Lymphocyte 2 % (19-41); Monocyte 19 % (0-10); Myelocyte 3 % (0-0); Neutrophil-Band 5 % (0-5); Neutrophil-Segmented 70 % (47-70); Promyelocyte 1 % (0-0)
[2021-02-22 04:01] LABS: Absolute Lymphocyte Count 0.55 X10^3/uL (0.83-4.51); Absolute Neutrophil Count 20.5 X10^3/uL (2.0-7.7); Platelet Estimate ADEQUATE (ADEQ)
[2021-02-22 04:02] LABS: Polychromasia 1+; Red Cell Morphology NORM C+C NORMAL (NORM C&C)
--- NOTE | 2021-02-22 04:31 | EDS_ITS ---
HPI History of Present Illness Chief Complaint: Weakness Informant: patient and family Onset/Context/Timing Onset: Days (2) Context: Gradual Onset Timing: Continuous Quality: Weakness Location: Generalized Worsened by: Nothing Relieved by: Nothing Narrative Narrative: Patient presents with generalized weakness that became worse today. Patient has a history of pancreatic cancer with metastases to the liver. Patient was seen here 3 days ago. Patient was able to go home at that time. Patient states his weakness has been getting progressively worse. Patient had a syncopal episode tonight. Family states patient is unable to stand at home. Family states they are unable to care for him at home. [facility] Medical History (Updated 02/22/21 @ 08:40 by Sherry Merida) Anxiety Atherosclerotic heart disease of [place] coronary artery without angina pectoris Body mass index (bmi) 29.0-29.9, adult CAD (coronary artery disease) Cancer Chest pain Depression Diabetes mellitus, type II Dialysis patient Essential hypertension Hearing loss, left Hearing loss, right History of left heart catheterization (LHC) (~05/16/19) Kidney disease Non-smoker Paroxysmal atrial fibrillation Pure hypercholesterolemia Vision loss of left eye Vision loss of right eye Wears hearing aid in both ears Wide-complex tachycardia Home Medications tamsulosin 0.4 mg PO DAILY 01/21/16 [History Last Taken 09/22/20] amiodarone 200 mg PO DAILY 08/05/20 [History Last Taken 09/23/20] pantoprazole 40 mg tablet,delayed release 40 mg PO DAILY tablet 09/04/20 [Hist ory Last Taken 09/23/20] pravastatin 20 mg PO QHS 09/23/20 [History Last Taken 09/22/20] metoprolol tartrate 50 mg tablet 25 mg PO .COMPLEX #0 10/23/20 [Rx Last Taken Unknown] docusate sodium [Colace] 100 mg PO DAILY #30 cap 01/04/21 [Rx Last Taken Unknown] hydrocodone-acetaminophen 1 tab PO Q4H PRN PRN 3 Days #15 tablet 02/17/21 [Rx Last Taken Unknown] insulin glargine [Lantus Solostar U-100 Insulin] 8 unit SUBCUT QPM 02/17/21 [History Last Taken Unknown] insulin lispro [Humalog KwikPen Insulin] unit SUBCUT TID 02/17/21 [History Last Taken Unknown] rvgitd-iaoczumh-gjivgpv [Creon] 1 cap PO TID 02/17/21 [History Last Taken Unknown] midodrine 10 mg PO . 02/17/21 [History Last Taken Unknown] sitagliptin [Januvia] 25 mg PO DAILY 02/17/21 [History Last Taken Unknown] sucralfate [Carafate] 1 g PO BID #60 tab 02/17/21 [Rx Last Taken Unknown] oxycodone 10 mg PO Q6H PRN 02/22/21 [History Last Taken Unknown] Allergy/AdvReac Type Severity Reaction Status Date / Time scopolamine AdvReac HALLUCINATI Verified 02/22/21 02:37 ONS SOME TYPE OF IV DYE FOR AdvReac backache Uncoded 02/17/21 05:38 ULTRA BRYCE Family History Father CAD (coronary artery disease) Mother Alzheimers disease Sister Breast cancer Surgical History History of ERCP Hx laparoscopic cholecystectomy Social History Smoking Status: Never smoker alcohol intake: never substance use type: does not use diet: diabetic caffeine: No what type of physical activity do you participate in: none seatbelt use: always do you feel safe at home: Yes ROS ROS ED Constitutional Constitutional ED: Denies chills or fever(s) Eyes Eyes: Denies blurry vision or change in vision ENT ENT ED: Denies rhinorrhea or sore throat Cardiovascular Cardiovascular: Denies chest pain or palpitations Respiratory/Chest Respiratory/Chest: Denies cough or dyspnea Gastrointestinal Gastrointestinal: Reports nausea; Denies vomiting Genitourinary Genitourinary ED: Denies dysuria or hematuria Musculoskeletal Musculoskeletal: Reports neck pain; Denies back pain Integumentary Denies abscess or rash Neurologic Neurologic: Reports weakness; Denies headache(s) Allergic/Immunologic Allergic/Immunologic ED: Denies mouth swelling or urticaria EXAM Physical Exam Const Vital Signs: 02/22/21 02:31 02/22/21 02:40 02/22/21 06:18 Temperature 98.9 F 98.2 F Temperature Source Oral Oral Pulse Rate 142 H 75 Respiratory Rate 18 15 Respiratory Effort Non-Labored Respiratory Pattern Normal Blood Pressure 109/48 L 92/50 L Blood Pressure Mean 68 64 Pulse Ox 97 95 Oxygen Delivery Method Room Air Room Air Positive well developed and cachectic General Appearance ED: well developed and cachectic Nutritional Appearance: cachectic HEENT Reports moist mucous membranes Neck supple and no JVD Resp normal respiratory effort and clear to auscultation bilaterally Cardio Rate: tachycardic Rhythm: abnormal rhythm irregularly irregular GI normal to inspection, nondistended, normoactive bowel sounds and non-tender Palpation: soft Neuro oriented x3, CN's II-XII intact bilaterally and no sensory deficits noted Sensorium / Orientation: alert Psych mental status grossly normal MDM MDM MDM Narrative Medical decision making narrative: EKG was obtained. On my interpretation, there is atrial fibrillation with rapid ventricular response at 144. There are nonspecific ST-T wave changes. QRS interval, QTc interval, and axis are all normal. CBC shows a white blood cell count of 27.3. Hemoglobin was 9.9 hematocrit was 31.0. Comprehensive metabolic profile shows a creatinine of 3.32 and a BUN of 24. These are consistent with prior results. Urinalysis shows leukocyte esterase of 500 with greater than 100 white blood cells and 4+ bacteria. Lactate was obtained was elevated at 3.7. Portable 1 view chest x- ray was obtained. On my interpretation, lung yap show atelectasis in the left base. There is normal cardiac silhouette. Bony thorax is normal. There is no acute process noted. Radiologist also interpreted the x-ray and agrees. Blood cultures were obtained. Urine culture was obtained. Patient was started on Rocephin. Patient was given IV fluids. Case was discussed with the jasmin feng. She will admit the patient to her service. Patient and family understood and were agreeable with the plan. All questions were answered. Lab Data Attestation: I reviewed the patient's lab results. Labs: Laboratory Results - last 24 hr 02/22/21 02/22/21 02/22/21 03:25 03:25 03:25 WBC 27.3 H RBC 3.16 L Hgb 9.9 L Hct 31.0 L MCV 98.1 H MCH 31.3 MCHC 31.9 L RDW Std Deviation 68.5 H RDW Coeff of [place]ano 19.8 H Plt Count 255 MPV 12.3 H Neut % (Auto) Not Reportable Absolute Neuts (auto) 20.5 H Absolute Lymphs (auto) 0.55 L Neutrophils % (Manual) 70 Band Neutrophils % 5 Lymphocytes % (Manual) 2 L Monocytes % (Manual) 19 H Myelocytes % 3 H Promyelocytes % 1 H Diff Path Review May foll Platelet Estimate ADEQUATE RBC Morphology NORM C+C Polychromasia 1+ Sodium 136 Potassium 4.2 Chloride 97 L Carbon Dioxide 28.0 Anion Gap 11 BUN 24 H Creatinine 3.32 H Estim Creat Clear Calc 19.54 Est GFR (MDRD) Af Amer 23 L Est GFR (MDRD) Non-Af 19 L BUN/Creatinine Ratio 7.2 L Glucose 225 H Lactic Acid Calcium 7.7 L Phosphorus 2.5 Magnesium 1.7 Total Bilirubin 0.80 AST 10 L ALT 12 L Alkaline Phosphatase 139 H Troponin I High Sens 40.2 Total Protein 5.2 L Albumin 1.6 L Globulin 3.6 Albumin/Globulin Ratio 0.4 L Urine Color Urine Clarity Urine pH Ur Specific [place] Urine Protein Urine Glucose (UA) Urine Ketones Urine Occult Blood Urine Nitrite Urine Bilirubin Urine Urobilinogen Ur Leukocyte Esterase Urine RBC Urine WBC Ur Squamous Epith Cells Amorphous Sediment Urine Bacteria Urine Mucus 02/22/21 02/22/21 04:40 05:00 WBC RBC Hgb Hct MCV MCH MCHC RDW Std Deviation RDW Coeff of [place] Plt Count MPV Neut % (Auto) Absolute Neuts (auto) Absolute Lymphs (auto) Neutrophils % (Manual) Band Neutrophils % Lymphocytes % (Manual) Monocytes % (Manual) Myelocytes % Promyelocytes % Diff Path Review Platelet Estimate RBC Morphology Polychromasia Sodium Potassium Chloride Carbon Dioxide Anion Gap BUN Creatinine Estim Creat Clear Calc Est GFR (MDRD) Af Amer Est GFR (MDRD) Non-Af BUN/Creatinine Ratio Glucose Lactic Acid 3.7 H* Calcium Phosphorus Magnesium Total Bilirubin AST ALT Alkaline Phosphatase Troponin I High Sens Total Protein Albumin Globulin Albumin/Globulin Ratio Urine Color Yellow Urine Clarity Cloudy Urine pH 5.0 Ur Specific [place] 1.020 Urine Protein 30 H Urine Glucose (UA) Normal Urine Ketones 5 H Urine Occult Blood 25 H Urine Nitrite Negative Urine Bilirubin 3 H Urine Urobilinogen 1 H Ur Leukocyte Esterase 500 H Urine RBC 0-5 SEEN Urine WBC >100 SEEN Ur Squamous Epith Cells 0 SEEN Amorphous Sediment 1+ Urine Bacteria 4+ Urine Mucus 0 SEEN Radiography Diagnostic Testing: Radiology Impression Chest X-Ray 02/22/21 03:13 IMPRESSION: Minimal left lung base atelectasis. No focal consolidative lung changes. Electronically Signed: David Rosa MD at 4:14 EDT Tel , Service support , EKG Initial EKG: Attestation: I personally reviewed and interpreted this EKG as follows: Interpretation: Atrial Fibrillation (144) and Non-Specific ST Changes Prior EKG tracings: available for review Prior: Unchanged (11/29/2020) Treatment and Re-Evaluation Vital Sign Attestation:: Vital signs were reviewed prior to admission. Patient is still tachycardic at 142. Remaining vital signs were normal. Critical Care Time Critical Care Time: Yes Critical care time (excluding procedures): 30-74 minutes (33), Including time spent:, Discussing w/Patient &/or Family/Clinical Study Manager, Discussing w/Consultants, Arranging Admission or Transfer and Performing Direct Patient Care at Bedside Discharge Plan Dx/Rx/DC Orders Clinical Impression: Severe sepsis, Weakness, History of pancreatic cancer, Urinary tract infection, Atrial fibrillation Disposition Disposition: Acute Care Hospital [facility] Discharge Date/Time: 02/22/21 07:27
[2021-02-22 04:48] LABS: Mucous, Urine 0 SEEN /hpf (<or=2+); Squamous Epithelial Cells - UA 0 SEEN /hpf (0-5)
[2021-02-22 04:49] LABS: Color, Urine Yellow (Yellow); Glucose, Dipstick Normal (Normal); Ketone-Dipstick 5 mg/dl (Negative); Leukocyte Esterase-Dipstick 500 /ul (Negative); Nitrite-Dipstick Negative (Negative); Occult Blood-Urine 25 /ul (Negative); Protein-Dipstick 30 mg/dl (Negative); Urine Clarity Cloudy (Clear); Urine Urobilinogen 1 mg/dl (Normal)
[2021-02-22 04:56] LABS: Urine Bilirubin Dipstick 3 mg/dL (Negative)
[2021-02-22 05:36] LABS: Amorphous Sediment 1+; Bacteria 4+ /hpf (None Seen); Red Blood Cells-Urine 0-5 SEEN /hpf (0-5); White Blood Cells >100 SEEN /hpf (0-5)
[2021-02-22 05:54] LABS: Lactic Acid 3.7 mmol/L (0.4-1.9)
[2021-02-22] MEDS: Ceftriaxone 1 GM/50 ML BAG IV ×2 (05:54→21:25)
--- NOTE | 2021-02-22 05:55 | PCM.HP.STD ---
HPI - General General Date of Admission: 02/22/21 Date of Service: 02/22/21 Chief Complaint: Weakness, intractable pain HPI Narrative The patient is a 75 y/o M w/ PMHx: Chronic anemia, Chronic thrombocytopenia, CAD s/p PCI, HTN, HLD, PAF, Hx Wide complex tachycardia, Diabetes mellitus type II, GERD, BPH, 08/05/2020 acute renal failure with renal biopsy demonstrating acute interstitial nephritis started on hemodialysis now ESRD on HD MWF, recently diagnosed Pancreatic Cancer with metastases to the liver, Hx GI Bleed who presents to the [facility] ED on 02/22/21 with history of progressively worsening weakness with syncopal event on the evening of day of presentation with severe debility, inability to care for self brought in per family secondary to concerns. Work-up in the ED included T 98.9, heart rate 142, BP 109/48, respiratory rate 18, 97% on room air, CBC with WC 27.3, hemoglobin 9.9, platelet 2 5 with left shift and lymphopenia, CMP with chloride 97, BUN/creatinine 24/3.32, glucose 225, lactic acid 3.7, AST/ALT 10/12, alk phos 139, high-sensitivity troponin 40.2, blood culture x2 pending per ED, urinalysis with specific [place]he 1.020, protein 30, ketone 5, occult blood 25, nitrite negative, leukocyte esterase 500, urine WBCs greater than 100, 4+ with urine culture pending per ED, chest x-ray with minimal left lung base atelectasis otherwise no acute cardiopulmonary findings. In the ED patient ministered IV Rocephin. [facility] Medical History (Updated 02/22/21 @ 06:[address] Oliiva Landrum MD) Atherosclerotic heart disease of [place] coronary artery without angina pectoris Body mass index (bmi) 29.0-29.9, adult CAD (coronary artery disease) Chest pain Diabetes mellitus, type II Essential hypertension History of left heart catheterization (LHC) (~05/16/19) Paroxysmal atrial fibrillation Pure hypercholesterolemia Wide-complex tachycardia Home Medications tamsulosin 0.4 mg PO DAILY 01/21/16 [History Last Taken 09/22/20] amiodarone 200 mg PO DAILY 08/05/20 [History Last Taken 09/23/20] pantoprazole 40 mg tablet,delayed release 40 mg PO DAILY tablet 09/04/20 [History Last Taken 09/23/20] pravastatin 20 mg PO QHS 09/23/20 [History Last Taken 09/22/20] metoprolol tartrate 50 mg tablet 25 mg PO .COMPLEX #0 10/23/20 [Rx Last Taken Unknown] docusate sodium [Colace] 100 mg PO DAILY #30 cap 01/04/21 [Rx Last Taken Unknown] hydrocodone-acetaminophen 1 tab PO Q4H PRN PRN 3 Days #15 tablet 02/17/21 [Rx Last Taken Unknown] insulin glargine [Lantus Solostar U-100 Insulin] 8 unit SUBCUT QPM 02/17/21 [History Last Taken Unknown] insulin lispro [Humalog KwikPen Insulin] unit SUBCUT TID 02/17/21 [History Last Taken Unknown] cevncs-xoqnyaur-hazumuj [Creon] 1 cap PO TID 02/17/21 [History Last Taken Unknown] midodrine 10 mg PO . 02/17/21 [History Last Taken Unknown] sitagliptin [Januvia] 25 mg PO DAILY 02/17/21 [History Last Taken Unknown] sucralfate [Carafate] 1 g PO BID #60 tab 02/17/21 [Rx Last Taken Unknown] oxycodone 10 mg PO Q6H PRN 02/22/21 [History Last Taken Unknown] Allergy/AdvReac Type Severity Reaction Status Date / Time scopolamine AdvReac HALLUCINATI Verified 02/22/21 02:37 ONS SOME TYPE OF IV DYE FOR AdvReac backache Uncoded 02/17/21 05:38 ULTRA BRYCE Family History Father CAD (coronary artery disease) Mother Alzheimers disease Sister Breast cancer Surgical History History of ERCP Hx laparoscopic cholecystectomy Social History Smoking Status: Never smoker alcohol intake: never substance use type: does not use diet: diabetic caffeine: No what type of physical activity do you participate in: none seatbelt use: always do you feel safe at home: Yes ROS ROS Narrative Admission Review of Systems: CONSTITUTIONAL: No weight loss, fever, chills, + weakness or fatigue. HEENT: Eyes: No visual loss, blurred vision, double vision or yellow sclerae. Ears, Nose, Throat: No hearing loss, sneezing, congestion, runny nose or sore throat. SKIN: No rash or itching, lesions, wounds. CARDIOVASCULAR: No chest pain, chest pressure or chest discomfort, palpitations, edema, orthopnea, syncopal events. RESPIRATORY: No shortness of breath, cough or sputum, wheezing, hemoptysis. GASTROINTESTINAL: + anorexia, abdominal pain, nausea, vomiting, diarrhea, melena, BRBPR. GENITOURINARY: + frequency, No dysuria, urgency or retention. NEUROLOGICAL: No headache, dizziness, syncope, paralysis, ataxia, numbness or tingling in the extremities, focal weakness, change in bowel or bladder control, seizure. MUSCULOSKELETAL: + muscle, back pain, joint pain or stiffness. HEMATOLOGIC: + anemia, bleeding or bruising. LYMPHATICS: No enlarged nodes. No history of splenectomy. PSYCHIATRIC: + history of depression or anxiety. ENDOCRINOLOGIC: No reports of sweating, cold or heat intolerance. No polyuria or polydipsia. ALLERGIES: No history of asthma, hives, eczema or rhinitis. Vital Signs Vital Signs Vital Signs: 02/22/21 02:31 02/22/21 02:40 Temperature 98.9 F Temperature Source Oral Pulse Rate 142 H Respiratory Rate 18 Respiratory Effort Non-Labored Respiratory Pattern Normal Blood Pressure 109/48 L Blood Pressure Mean 68 Pulse Ox 97 Oxygen Delivery Method Room Air Weight Weight: 180 lb 1.883 oz Body Mass Index (BMI) 25.8 Physical Exam Narrative Physical Examination: General: Awake, alert, oriented x 3 and cooperative, seated upright in the ED bed, fatigued and ill-appearing. Skin: Normal color, normal turgor, no icterus, no cyanosis except occasional staged ecchymoses. HEENT: AT/NC, EOMI, PERRLA, dry MM, no carotid bruits or JVD noted. Lungs: Diminished breath sounds, greater bases, no rales, ronchi or wheezing. Heart: Irregular irregular; no gallop, rub audible. Abdomen: Soft, mild tenderness palpation epigastric and right upper quadrant with no rebound or guarding, ND, mildly hyperactive BS, mild HM. Extremities: No cyanosis, clubbing, or edema. Neurological: Patient awake, alert, oriented as noted, cognitive function intact; pupils equally reactive to light and accommodation, cranial nerves II-XII grossly normal, moving all 4 extremities, no focal deficits, strength severely global decrease secondary to acute presentation. Psychiatric: Affect appears fatigued, ill-appearing, making several comments about his impending , do suspect underlying depression currently, no obvious anxiety feelings. Results Lab / Micro Data Result Diagrams: 02/22/21 03:25 02/22/21 03:25 Labs: Laboratory Results - last 24 hr 02/22/21 03:25: WBC 27.3 H, RBC 3.16 L, Hgb 9.9 L, Hct 31.0 L, MCV 98.1 H, MCH 31.3, MCHC 31.9 L, RDW Std Deviation 68.5 H, RDW Coeff of Dano 19.8 H, Plt Count 255, MPV 12.3 H, Neut % (Auto) Not Reportable, Absolute Neuts (auto) 20.5 H, Absolute Lymphs (auto) 0.55 L, Neutrophils % (Manual) 70, Band Neutrophils % 5, Lymphocytes % (Manual) 2 L, Monocytes % (Manual) 19 H, Myelocytes % 3 H, Promyelocytes % 1 H, Diff Path Review May foll, Platelet Estimate ADEQUATE, RBC Morphology NORM C+C, Polychromasia 1+ 02/22/21 03:25: Sodium 136, Potassium 4.2, Chloride 97 L, Carbon Dioxide 28.0, Anion Gap 11, BUN 24 H, Creatinine 3.32 H, Estim Creat Clear Calc 19.54, Est GFR (MDRD) Af Amer 23 L, Est GFR (MDRD) Non-Af 19 L, BUN/Creatinine Ratio 7.2 L, Glucose 225 H, Calcium 7.7 L, Total Bilirubin 0.80, AST 10 L, ALT 12 L, Alkaline Phosphatase 139 H, Troponin I High Sens 40.2, Total Protein 5.2 L, Albumin 1.6 L, Globulin 3.6, Albumin/Globulin Ratio 0.4 L 02/22/21 04:40: Urine Color Yellow, Urine Clarity Cloudy, Urine pH 5.0, Ur Specific [place] 1.020, Urine Protein 30 H, Urine Glucose (UA) Normal, Urine Ketones 5 H, Urine Occult Blood 25 H, Urine Nitrite Negative, Urine Bilirubin 3 H, Urine Urobilinogen 1 H, Ur Leukocyte Esterase 500 H, Urine RBC 0-5 SEEN, Urine WBC >100 SEEN, Ur Squamous Epith Cells 0 SEEN, Amorphous Sediment 1+, Urine Bacteria 4+, Urine Mucus 0 SEEN 02/22/21 05:00: Lactic Acid 3.7 H* Radiology Impression Chest X-Ray 02/22/21 03:13 IMPRESSION: Minimal left lung base atelectasis. No focal consolidative lung changes. Electronically Signed: David Rosa MD at 4:14 EDT Tel , Service support , Assessment & Plan Assessment/Plan (1) Severe sepsis: (2) Urinary tract infection: QUALIFIERS: Urinary tract infection type: acute cystitis Hematuria presence: without hematuria Qualified Code(s): N30.00 - Acute cystitis without hematuria PLAN: The patient is a 75 y/o M w/ PMHx: Chronic anemia, Chronic thrombocytopenia, CAD s/p PCI, HTN, HLD, PAF, Hx Wide complex tachycardia, Diabetes mellitus type II, GERD, BPH, 08/05/2020 acute renal failure with renal biopsy demonstrating acute interstitial nephritis started on hemodialysis now ESRD on HD MWF, recently diagnosed Pancreatic Cancer with metastases to the liver, Hx GI Bleed who presents to the [facility] ED on 02/22/21 with history of progressively worsening weakness with syncopal event on the evening of day of presentation with severe debility, inability to care for self brought in per family secondary to concerns. 1. Acute Severe Sepsis (SIRS with Lactic Acidosis secondary to Infectious Etiology) secondary to Acute Urinary Tract Infection: Will admit to ICU given severe sepsis status, UA upon ED evaluation remarkable, pending UCx, continue IVFs judiciously given end-stage renal disease on dialysis status, monitor I/Os, continue IV Rocephin w/ transition as able pending sensitivities and speciation. Bld cx x 2 obtained in the ED. 2. Atrial Fibrillation with RVR: EKG in ED w/ atrial fibrillation w/ RVR. Will maintain on telemetry, will initiate Cardizem drip cautiously given BPs, may not be able to tolerate, continue amiodarone, obtain cardiac enzyme serial set, obtain magnesium level, 08/10/2020 echocardiogram with normal LV systolic function, EF 65%, mildly enlarged LA, trivial MVI, trivial TVI, no evidence of diastolic dysfunction, obtain TSH level. We will continue patient amiodarone and metoprolol regimen. CHADs scoring appropriate for anticoagulation but patient with history of GI bleed recently reported therefore will defer any anticoagulation. May consider cardiology consultation if not responsive to these interventions or hypotension precludes further drip usage. 3. Recently diagnosed pancreatic cancer with metastases to liver: Patient following a Dr. Mckeon, initially diagnosed following evaluation 09/2020, on chemotherapy, from discussions not fairing well but has upcoming planned imaging for further direction decisions. Mag and Phos requested. 4. 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 Ramon drew. 5. Diabetes mellitus type II: Hold oral home regimen, continue home insulin regimen, ADA diet, accu checks w/ ISS. 6. Chronic Anemia, AOCD: Admission hemoglobin 9.9, previously 02/17/2021 9.2, stable, trend. 7. History of recently reported GI bleed: We will continue patient home sucralfate and high-dose PPI twice daily, deferring any anticoagulation as noted above. 8. CAD: Patient with history of GI bleed, currently not on antiplatelet therapy, continue home metoprolol, statin regimen. 9. Hypertension: Continue home regimen including Cardizem drip as noted if BP will allow, metoprolol, PRN hydralazine. 10. Hyperlipidemia: Continue home statin regimen. 11. BPH: We will continue patient on Flomax regimen. 12. DVT prophylaxis: SCDs, cautiously heparin given GI bleed history 13. CODE status: Patient ANA is his and living will is in place. Discussed CODE status at length including difference between FULL code, DNR-CCA and DNR-CC status. Following discussions about the differences in these status, requested DNR-CCA, no intubation. Advanced Care Planning Face to Face Time: 16 minutes. Charges/Coding Visit Charges Inpatient E&M: 38410 Init Hosp L3 Procedures Hospitalists Procedures: 79930 Advncd Care Plan 30 Min
[2021-02-22] MEDS: 0.9% Normal Saline 1,000 ML 999 ML IV (06:13)
[2021-02-22] MEDS: Morphine 4 MG/ML Syringe IV (06:17)
--- NOTE | 2021-02-22 06:44 | EX.PCM.CONCC ---
Assessment & Plan Assessment/Plan (1) Severe sepsis: PLAN: RECOMMENDATIONS: 1. Continue empiric antimicrobials. 2. Obtain and send urine for culture. Blood cultures are already pending. 3. Administer amiodarone bolus and place on continuous infusion. 4. Obtain nephrology consultation for ongoing hemodialysis needs. 5. Continue midodrine per home regimen. 6. Pain control regimen per hospitalist. IMPRESSIONS: 1. Severe sepsis with concern for potential urinary tract source of infection The patient presented to the hospital with generalized weakness and debility. He subsequently met criteria for severe sepsis with concern for potential urinary tract source of infection. Therefore, antimicrobials will be continued, pending finalized infectious work-up. The patient did receive supplemental IV fluids, but has remained hemodynamically stable. Plan to continue baseline midodrine per home regimen. 2. Paroxysmal atrial fibrillation with RVR/history of coronary artery disease The patient is currently in atrial fibrillation with RVR. Therefore, he will receive an amiodarone bolus and be placed on a continuous infusion. The remainder of his outpatient cardiac regimen will be continued. 3. History of end-stage renal disease on hemodialysis Nephrology consultation to assist with ongoing hemodialysis needs. 4. Metastatic pancreatic cancer The patient has a history of metastatic pancreatic cancer is currently undergoing chemotherapy under the discretion of Dr. Mckeon of oncology. 5. Generalized weakness and debility Complicates care, management, recovery and prognosis. PT/OT to evaluate patient. This note was generated with [employer] dictation software. It may contain incorrect words, spelling, and punctuation that were not noted in checking the note before signing. HPI Consult Data Date of Consult: 02/23/21 HPI Narrative Reason for Consultation: Severe sepsis HPI Narrative: The patient is a 75-year-old male, with a history as outlined below, who presented to the emergency department on February 22 with generalized weakness. The patient has a complex medical history including interstitial nephritis on hemodialysis along with recently diagnosed metastatic pancreatic cancer, coronary artery disease and paroxysmal atrial fibrillation. The patient reported that yesterday he used the bathroom and was unable to get off the toilet. He does report feeling profoundly weak over the last several days. The patient was recently started on chemotherapy for his underlying malignancy, which is currently under the management of Dr. Mckeon of oncology. He denies any abdominal pain. Although the patient is end-stage renal disease, he does report that he does make a small amount of urine. He denies any dysuria. On presentation to the emergency department, the patient was noted to be afebrile and hemodynamically stable. He was maintaining appropriate oxygen saturations on room air. Laboratory evaluation revealed an elevated white blood cell count to 27,000. Chemistry profile was notable for a creatinine of 3.32. Lactate was elevated at 3.7. Urine analysis was notable for leukocyte esterase, greater than 100 white blood cells and 4+ urine bacteria. Chest x-ray demonstrated no acute cardiopulmonary process. The patient received supplemental IV fluid hydration was started on antimicrobials. He was subsequently admitted to the medical intensive care unit for further management. [facility] Medical History (Updated 02/22/21 @ 12:[address] Luciano Rios MD) Anxiety Atherosclerotic heart disease of [place] coronary artery without angina pectoris Body mass index (bmi) 29.0-29.9, adult CAD (coronary artery disease) Cancer Chest pain Depression Diabetes mellitus, type II Dialysis patient Essential hypertension Hearing loss, left Hearing loss, right History of left heart catheterization (LHC) (~05/16/19) Kidney disease Non-smoker Paroxysmal atrial fibrillation Pure hypercholesterolemia Vision loss of left eye Vision loss of right eye Wears hearing aid in both ears Wide-complex tachycardia Home Medications tamsulosin 0.4 mg PO DAILY 01/21/16 [History Last Taken 09/22/20] amiodarone 200 mg PO DAILY 08/05/20 [History Last Taken 09/23/20] pantoprazole 40 mg tablet,delayed release 40 mg PO DAILY tablet 09/04/20 [History Last Taken 09/23/20] pravastatin 20 mg PO QHS 09/23/20 [History Last Taken 09/22/20] metoprolol tartrate 50 mg tablet 25 mg PO .COMPLEX #0 10/23/20 [Rx Last Taken Unknown] docusate sodium [Colace] 100 mg PO DAILY #30 cap 01/04/21 [Rx Last Taken Unknown] hydrocodone-acetaminophen 1 tab PO Q4H PRN PRN 3 Days #15 tablet 02/17/21 [Rx Last Taken Unknown] insulin glargine [Lantus Solostar U-100 Insulin] 8 unit SUBCUT QPM 02/17/21 [History Last Taken Unknown] insulin lispro [Humalog KwikPen Insulin] unit SUBCUT TID 02/17/21 [History Last Taken Unknown] pylyef-ctfzibhm-ebxdbld [Creon] 2 cap PO TID 02/17/21 [History Last Taken Unknown] midodrine 10 mg PO . 02/17/21 [History Last Taken Unknown] sitagliptin [Januvia] 25 mg PO DAILY 02/17/21 [History Last Taken Unknown] sucralfate [Carafate] 1 g PO BID #60 tab 02/17/21 [Rx Last Taken Unknown] oxycodone 10 mg PO Q6H PRN 02/22/21 [History Last Taken Unknown] Allergy/AdvReac Type Severity Reaction Status Date / Time scopolamine AdvReac HALLUCINATI Verified 02/22/21 02:37 ONS SOME TYPE OF IV DYE FOR AdvReac backache Uncoded 02/17/21 05:38 ULTRA BRYCE Family History Father CAD (coronary artery disease) Mother Alzheimers disease Sister Breast cancer Surgical History History of ERCP Hx laparoscopic cholecystectomy Social History Smoking Status: Never smoker alcohol intake: never substance use type: does not use diet: diabetic caffeine: No what type of physical activity do you participate in: none seatbelt use: always do you feel safe at home: Yes ROS Constitutional Constitutional: Reports fatigue, malaise and weakness Eyes Eyes: Denies blurry vision or change in vision ENT HEENT: Denies dizziness, headache(s), loss taste/smell or nasal congestion Cardiovascular Cardiovascular: Reports edema and irregular heart rhythm; Denies chest pain or dyspnea Respiratory/Chest Respiratory/Chest: Reports cough; Denies dyspnea Gastrointestinal Gastrointestinal: Reports abdominal pain; Denies nausea or vomiting Genitourinary Genitourinary: Denies dysuria Musculoskeletal Musculoskeletal: Denies arthralgias or back pain Integumentary Integumentary: Denies lesions, rash or skin ulcer Neurologic Neurologic: Denies abnormal gait or abnormal speech Psychiatric Psychiatric: Denies anxiety or depression Endocrine Endocrinology: Reports fatigue Hematologic/Lymphatic Hematologic/Lymphatic: Denies easy bleeding or easy bruising Physical Exam Const alert, oriented x3 and no apparent distress General Appearance: cooperative HEENT normocephalic, head/scalp atraumatic and moist oral mucous membranes Eyes PERRL, EOMs intact bilaterally and conjunctivae normal Neck supple General: trachea midline Resp normal respiratory effort and no use of accessory muscles Auscultation: Negative for rales, rhonchi or wheezes Cardio S1 normal heart sound and S2 normal heart sound Rate: tachycardic Rhythm: abnormal rhythm GI normal to inspection, nondistended, normoactive bowel sounds Extremity General Extremity: edema bilateral lower extremity Skin no rashes or lesions noted Neuro no focal motor deficits Psych cooperative and affect normal Lab / Micro Data Result Diagrams: 02/22/21 03:25 02/22/21 03:25 Labs: Laboratory Results - last 24 hr 02/22/21 03:25: WBC 27.3 H, RBC 3.16 L, Hgb 9.9 L, Hct 31.0 L, MCV 98.1 H, MCH 31.3, MCHC 31.9 L, RDW Std Deviation 68.5 H, RDW Coeff of [place] 19.8 H, Plt Count 255, MPV 12.3 H, Neut % (Auto) Not Reportable, Absolute Neuts (auto) 20.5 H, Absolute Lymphs (auto) 0.55 L, Neutrophils % (Manual) 70, Band Neutrophils % 5, Lymphocytes % (Manual) 2 L, Monocytes % (Manual) 19 H, Myelocytes % 3 H, Promyelocytes % 1 H, Diff Path Review November, Platelet Estimate ADEQUATE, RBC Morphology NORM C+C, Polychromasia 1+ 02/22/21 03:25: Sodium 136, Potassium 4.2, Chloride 97 L, Carbon Dioxide 28.0, Anion Gap 11, BUN 24 H, Creatinine 3.32 H, Estim Creat Clear Calc 19.54, Est GFR (MDRD) Af Amer 23 L, Est GFR (MDRD) Non-Af 19 L, BUN/Creatinine Ratio 7.2 L, Glucose 225 H, Calcium 7.7 L, Total Bilirubin 0.80, AST 10 L, ALT 12 L, Alkaline Phosphatase 139 H, Troponin I High Sens 40.2, Total Protein 5.2 L, Albumin 1.6 L, Globulin 3.6, Albumin/Globulin Ratio 0.4 L 02/22/21 04:40: Urine Color Yellow, Urine Clarity Cloudy, Urine pH 5.0, Ur Specific [place] 1.020, Urine Protein 30 H, Urine Glucose (UA) Normal, Urine Ketones 5 H, Urine Occult Blood 25 H, Urine Nitrite Negative, Urine Bilirubin 3 H, Urine Urobilinogen 1 H, Ur Leukocyte Esterase 500 H, Urine RBC 0-5 SEEN, Urine WBC >100 SEEN, Ur Squamous Epith Cells 0 SEEN, Amorphous Sediment 1+, Urine Bacteria 4+, Urine Mucus 0 SEEN 02/22/21 05:00: Lactic Acid 3.7 H* Radiology Impression Chest X-Ray 02/22/21 03:13 IMPRESSION: Minimal left lung base atelectasis. No focal consolidative lung changes. Electronically Signed: David Rosa MD at 4:14 EDT Tel , Service support , Charges/Coding Visit Charges Inpatient E&M: 81904 Init Hosp L3
[2021-02-22 07:00] LABS: Magnesium 1.7 mg/dL (1.6-2.6); Phosphorus 2.5 mg/dL (2.5-4.9)
--- NOTE | 2021-02-22 07:57 | PCM.PN.HOSP ---
Subjective Subjective Seen and went. 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 As per EMS note, patient was found very weak, unable to stand up, pinpoint pupil therefore Narcan was given. In the ER, found to have chronic A. fib with RVR with generalized weakness. Denies fever or chills. Patient syncopal episode yesterday. Patient has history of pancreatic cancer with metastasis to liver recently diagnosed probably the last 6 months. His oncologist is Dr. Mckeon. Patient had total 4 sessions of chemotherapy and 2 missed sessions because of low blood count. Patient gets chemotherapy once a week for conjugated 3 weeks and rest next week. History of ESRD on dialysis Wednesday and Wednesday. 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 Patient ended on dialysis after episode of acute kidney injury secondary to acute interstitial nephritis diagnosed with renal biopsy. Objective Data Objective Data Vital Signs: Vital Signs Temp Pulse Resp BP Pulse Ox 98.2 F 128 H 23 H 96/52 L 94 02/22/21 06:49 02/22/21 06:49 02/22/21 06:49 02/22/21 06:49 02/22/21 06:49 Oxygen Delivery Method Room Air Weight: 180 lb 1.883 oz Body Mass Index (BMI) 25.8 Intake & Output: Intake and Output for Last 24 Hours 02/20/21 02/21/21 02/22/21 23:59 23:59 23:59 Intake Total 1050 / 1050 Balance 1050 / 1050 Lab / Micro Data Result Diagrams: 02/22/21 03:25 02/22/21 03:25 Labs: Laboratory Results - last 24 hr 02/22/21 03:25: WBC 27.3 H, RBC 3.16 L, Hgb 9.9 L, Hct 31.0 L, MCV 98.1 H, MCH 31.3, MCHC 31.9 L, RDW Std Deviation 68.5 H, RDW Coeff of [place] 19.8 H, Plt Count 255, MPV 12.3 H, Neut % (Auto) Not Reportable, Absolute Neuts (auto) 20.5 H, Absolute Lymphs (auto) 0.55 L, Neutrophils % (Manual) 70, Band Neutrophils % 5, Lymphocytes % (Manual) 2 L, Monocytes % (Manual) 19 H, Myelocytes % 3 H, Promyelocytes % 1 H, Diff Path Review November, Platelet Estimate ADEQUATE, RBC Morphology NORM C+C, Polychromasia 1+ 02/22/21 03:25: Sodium 136, Potassium 4.2, Chloride 97 L, Carbon Dioxide 28.0, Anion Gap 11, BUN 24 H, Creatinine 3.32 H, Estim Creat Clear Calc 19.54, Est GFR (MDRD) Af Amer 23 L, Est GFR (MDRD) Non-Af 19 L, BUN/Creatinine Ratio 7.2 L, Glucose 225 H, Calcium 7.7 L, Total Bilirubin 0.80, AST 10 L, ALT 12 L, Alkaline Phosphatase 139 H, Troponin I High Sens 40.2, Total Protein 5.2 L, Albumin 1.6 L, Globulin 3.6, Albumin/Globulin Ratio 0.4 L 02/22/21 03:25: Phosphorus 2.5, Magnesium 1.7 02/22/21 04:40: Urine Color Yellow, Urine Clarity Cloudy, Urine pH 5.0, Ur Specific [place] 1.020, Urine Protein 30 H, Urine Glucose (UA) Normal, Urine Ketones 5 H, Urine Occult Blood 25 H, Urine Nitrite Negative, Urine Bilirubin 3 H, Urine Urobilinogen 1 H, Ur Leukocyte Esterase 500 H, Urine RBC 0-5 SEEN, Urine WBC >100 SEEN, Ur Squamous Epith Cells 0 SEEN, Amorphous Sediment 1+, Urine Bacteria 4+, Urine Mucus 0 SEEN 02/22/21 05:00: Lactic Acid 3.7 H* Radiography Diagnostic Testing: Radiology Impression Chest X-Ray 02/22/21 03:13 IMPRESSION: Minimal left lung base atelectasis. No focal consolidative lung changes. Electronically Signed: David Rosa MD at 4:14 EDT Tel , Service support , Physical Exam Narrative Physical exam General: Alert, Oriented x3, Cooperative, looks fatigue HEENT: Atraumatic, PERRLA, EOMI, Normocephalic Oral: Oral mucosa dry. No Gingival or Mucosal Lesions/ Ulcerations Neck: Supple, No JVD, Negative Carotid Bruits Lungs: Air entry diminished in bilateral lung bases. No crepitation/rhonchi/wheezing Cardiovascular: Irregular rate and rhythm, A. fib with RVR, normal S1, Normal S2, LLSB holosystolic murmurs Abdomen: Bowel Sounds Present, Soft, Non Tender, Non-Distended : No renal angle tenderness. No suprapubic tenderness. Extremities: No edema, Capillary Refill Less than 3 Seconds Skin: No rashes, No breakdown Musculoskeletal: Moderate atrophy of muscles of extremities. No Tenderness to Palpation of Joints or Extremities Neurological: Cranial nerves II-XII grossly intact, Deep Tendon Reflexes 2+/4 and Symmetrical, Neuro grossly intact Psych/Mental Status: Flat affect. Assessment & Plan Assessment/Plan (1) Severe sepsis: (2) Urinary tract infection: QUALIFIERS: Urinary tract infection type: acute cystitis Hematuria presence: without hematuria Qualified Code(s): N30.00 - Acute cystitis without hematuria PLAN: This 75-year-old with multiple comorbidities was admitted with generalized weakness, lactic acidosis with clinical and lab features suggestive of severe sepsis due to UTI A. fib with RVR 1. Severe sepsis (SIRS with lactic acidosis) probably due to acute UTI: Patient is being admitted in ICU. On IV Rocephin. Follow cultures 2. A. fib with RVR: Patient blood pressure is on lower side, systolic 102 mmHg. Start amiodarone bolus and then continuous IV drip. Cardizem drip was ordered but never started due to low blood pressure. 3. ESRD on hemodialysis: Dr. Crump is being consulted. 4. Pancreatic cancer with metastasis to liver: Patient follows Dr. Mckeon. Initially diagnosed September 2020. On chemotherapy regimen, few sessions were skipped because of low blood count. Diabetes mellitus type 2: Accu-Chek insulin coverage with sliding scale 5. Anemia of chronic disease/neoplastic disease: Hemoglobin low 9.9. 6. Coronary artery disease status post PCI: Patient not on antiplatelet or antithrombotic agent due to history of GI bleed, anemia and thrombocytopenia: Patient platelet count in September 2080 was in 30s to 40s thousand. 7. Other comorbidities include hypertension, dyslipidemia, BPH: Multiple comorbidities complicates the present care and expect difficult and delay recovery
[2021-02-22] MEDS: 0.9% Normal Saline 1,000 ML 100 ML IV ×2 (08:04→17:05)
--- NOTE | 2021-02-22 08:35 | ECHOL_ITS ---
Reason For Study: AFib Procedure This was a limited 2D transthoracic echocardiogram. PREVIOUS DEFINITY REACTION DO NOT USE, Images very medial. The study was technically difficult. Exam performed portable in ICU/CCU. Left Ventricle Normal LV size. Based upon the 2D echocardiographic images obtained there appears to be grossly normal left ventricular size, wall motion, and systolic function. The estimated ejection fraction is 55 %. Unable to assess diastolic dysfunction. No regional wall motion abnormalities noted. Right Ventricle Normal RV size. Normal systolic function. Atria The left atrium is mildly enlarged. Normal right atrium. No doppler evidence for ASD. Mitral Valve There is no mitral annular calcification. Normal mitral valve. Trivial mitral valve insufficiency. Tricuspid Valve Normal tricuspid valve. Mild tricuspid valve insufficiency. Right ventricular systolic pressure estimated to be 22 mmHg. Aortic Valve Trisinus/trileaflet aortic valve. Normal aortic valve. Pulmonic Valve The pulmonic valve is not well visualized. Great Vessels The aortic root is not well visualized. Pericardium/Pleural No pericardial effusion. MMode/2D Measurements & Calculations LVIDd: 4.4 cm IVSd: 1.1 cm LA dimension: 3.7 cm LVIDs: 3.4 cm LVPWd: 1.2 cm FS: 23.9 % LAV(MOD-sp2): 68.7 ml LVAd ap2: 30.9 cm2 SV(MOD-sp2): 35.7 ml LVLd ap2: 8.1 cm EDV(MOD-sp2): 100.9 ml EDV(sp2-el): 100.2 ml LVAs ap2: 23.9 cm2 LVLs ap2: 7.4 cm ESV(MOD-sp2): 65.2 ml ESV(sp2-el): 65.2 ml EF(MOD-sp2): 35.4 % Doppler Measurements & Calculations TR max yadira: 219.0 cm/sec TR max P.2 mmHg ECHO/Echo, Limited Study Interpretation Summary The study was technically difficult. Based upon the 2D echocardiographic images obtained there appears to be grossly normal left ventricular size, wall motion, and systolic function. The estimated ejection fraction is 55 %. The left atrium is mildly enlarged. Trivial mitral valve insufficiency. Mild tricuspid valve insufficiency. Right ventricular systolic pressure estimated to be 22 mmHg. Unable to assess diastolic dysfunction. Ordering Physician: Harvinder Camarillo Performed By: Alexx Dey RCS
[2021-02-22] MEDS: guaiFENesin 10 ML UDC (200MG/10ML) PO ×2 (08:51→13:47)
[2021-02-22 09:10] LABS: Bedside Glucose 222 mg/dL (70-110)
[2021-02-22] MEDS: Amiodarone 360 MG in Dextrose 5% Viaflo Bag 192.8 ML 33.3 MG CONT INF (09:10)
[2021-02-22] MEDS: Insulin Lispro 100 UNIT/ML INSULN.PEN SC ×3 (09:13→21:57)
[2021-02-22 09:16] LABS: Reflex Lactate? Y
[2021-02-22] MEDS: Morphine 2 MG/ML Syringe IV ×3 (11:31→20:10)
[2021-02-22] MEDS: Metoprolol Tartrate 25 MG Tablet PO ×2 (11:32→21:29)
[2021-02-22] MEDS: Heparin Injection (Vial) 5,000 UNIT/ML VIAL 5000 UNIT SC ×2 (11:32→21:27)
[2021-02-22] MEDS: Pantoprazole Sodium 40 MG Tablet PO ×2 (11:33→21:27)
[2021-02-22] MEDS: Docusate Sodium 100 MG Capsule PO (11:33)
[2021-02-22] MEDS: Glucerna Shake 120 ML LIQUID PO ×3 (11:49→21:25)
--- NOTE | 2021-02-22 12:04 | CON.PCM.RE_ITS ---
Assessment & Plan Assessment/Plan (1) ESRD (end stage renal disease) on dialysis: PLAN: The patient dialyzes at [facility] on a MWF schedule. He was dialyzed on 02/20/2021 prior to admission. There is no need for dialysis today. I will plan on dialyzing the patient again on 02/24/2021. Will reassess again tomorrow. Current medications are reviewed, and they are appropriately dosed for ESRD. (2) Anemia: QUALIFIERS: Anemia type: unspecified type Qualified Code(s): D64.9 - Anemia, unspecified PLAN: Hemoglobin is 9.9 g/dL which is close to goal for ESRD patient (goal hemoglobin for ESRD patient is 10 to 11 g/dL). We will continue to monitor hemoglobin while the patient is admitted. I will check with his home dialysis unit to see if he is on BEATRICE which may be contraindicated in the setting of solid organ tumor. (3) Chronic hypotension: PLAN: The patient had been on midodrine at home for chronic hypotension. BP is acceptable. We will continue to monitor the patient's BP. (4) Atrial fibrillation: PLAN: The patient is on amiodarone drip. Management of atrial fibrillation is as per primary services. (5) Severe sepsis: PLAN: Antimicrobial management as per hospital medicine and intensive care medicine teams. The patient is being treated with ceftriaxone. No need to adjust the dose of ceftriaxone in the setting of ESRD. HPI Consult Data Date of Consult: 02/22/21 HPI Narrative HPI Narrative: The patient is a 75-year-old man with past history significant for CAD status post PCI, type 2 diabetes mellitus, hypertension, paroxysmal atrial fibrillation, BPH, anemia, thrombocytopenia, and pancreatic cancer with metastasis to the liver. The patient presented to the hospital with progressive weakness over the last several weeks. He was dizzy on presentation with inability to care for himself at home. The patient also presented with abdominal pain that was rated at 8 out of 10 on presentation despite taking oxycodone at home. He does complain of constipation. The patient was subsequently diagnosed with UTI and severe sepsis requiring admission to the ICU. He also presented with atrial fibrillation with RVR and required temporary use of Cardizem infusion. He is now being treated with amiodarone infusion. The patient denies current chest pain, shortness of breath at rest, or nausea. He still complains of weakness and lightheadedness. The patient has chronic lower extremity edema which has not increased in severity. It has been difficult to remove fluid from the patient at dialysis because of hypotension and dizziness lately. The patient was dialyzed yesterday prior to admission. He usually dialyzes at [facility] on a Wednesday, Wednesday and Wednesday schedule. [facility] Medical History (Updated 02/22/21 @ 12:[address] Luciano Rios MD) Anxiety Atherosclerotic heart disease of [place] coronary artery without angina pectoris Body mass index (bmi) 29.0-29.9, adult CAD (coronary artery disease) Cancer Chest pain Depression Diabetes mellitus, type II Dialysis patient Essential hypertension Hearing loss, left Hearing loss, right History of left heart catheterization (LHC) (~05/16/19) Kidney disease Non-smoker Paroxysmal atrial fibrillation Pure hypercholesterolemia Vision loss of left eye Vision loss of right eye Wears hearing aid in both ears Wide-complex tachycardia Home Medications tamsulosin 0.4 mg PO DAILY 01/21/16 [History Last Taken 09/22/20] amiodarone 200 mg PO DAILY 08/05/20 [History Last Taken 09/23/20] pantoprazole 40 mg tablet,delayed release 40 mg PO DAILY tablet 09/04/20 [History Last Taken 09/23/20] pravastatin 20 mg PO QHS 09/23/20 [History Last Taken 09/22/20] metoprolol tartrate 50 mg tablet 25 mg PO .COMPLEX #0 10/23/20 [Rx Last Taken Unknown] docusate sodium [Colace] 100 mg PO DAILY #30 cap 01/04/21 [Rx Last Taken Unknown] hydrocodone-acetaminophen 1 tab PO Q4H PRN PRN 3 Days #15 tablet 02/17/21 [Rx Last Taken Unknown] insulin glargine [Lantus Solostar U-100 Insulin] 8 unit SUBCUT QPM 02/17/21 [History Last Taken Unknown] insulin lispro [Humalog KwikPen Insulin] unit SUBCUT TID 02/17/21 [History Last Taken Unknown] ylugdb-obrzerjl-sdsihaz [Creon] 1 cap PO TID 02/17/21 [History Last Taken Unknown] midodrine 10 mg PO . 02/17/21 [History Last Taken Unknown] sitagliptin [Januvia] 25 mg PO DAILY 02/17/21 [History Last Taken Unknown] sucralfate [Carafate] 1 g PO BID #60 tab 02/17/21 [Rx Last Taken Unknown] oxycodone 10 mg PO Q6H PRN 02/22/21 [History Last Taken Unknown] Allergy/AdvReac Type Severity Reaction Status Date / Time scopolamine AdvReac HALLUCINATI Verified 02/22/21 02:37 ONS SOME TYPE OF IV DYE FOR AdvReac backache Uncoded 02/17/21 05:38 ULTRA BRYCE Family History Father CAD (coronary artery disease) Mother Alzheimers disease Sister Breast cancer Surgical History History of ERCP Hx laparoscopic cholecystectomy Social History Smoking Status: Never smoker alcohol intake: never substance use type: does not use diet: diabetic caffeine: No what type of physical activity do you participate in: none seatbelt use: always do you feel safe at home: Yes ROS ROS Narrative ROS is as per HPI. 10 out of 10 review of system was done which is not contributory to HPI. Physical Exam Narrative General: Alert and oriented x3, no apparent distress. HEENT: Normocephalic, atraumatic. Mucous membrane dry. No mucosal erythema. Hearing is intact. PERRLA, EOMI. Neck: Supple, no JVD. Heart: Tachycardic, irregularly irregular S1 and S2. No murmurs or gallops. Lungs: Clear to auscultation anteriorly. Abdomen: Normal bowel sound, soft, diffuse tenderness on palpation. No guarding or rebound. Extremity: No clubbing or cyanosis. There is 1+ edema of the lower extremities bilaterally. Full passive range of motion. Neurologic: No focal neurologic deficit. Cranial nerves II through XII are grossly intact. Skin: Warm and dry. No rash. Psychiatric: Normal mood and affect. 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 Status Active Problem Clinical Problem Altered Nutrient-Related Laboratory Values Etiology related to endocrine/renal dysfunction Signs/Symptoms as evidenced by Gluc 225, BUN 24, Cr 3.32 Status Active Problem Recommendation Dietitian Recommendations/Changes Will liberalize diet to regular d/t poor po intake [employer] fishing vessel - once improved can consider return to therapeutic diet Will order chocolate glucerna shake w/ medpass for increased nutrition if consumed. Lab / Micro Data Result Diagrams: 02/22/21 03:25 02/22/21 03:25 Labs: Laboratory Results - last 24 hr 02/22/21 03:25: WBC 27.3 H, RBC 3.16 L, Hgb 9.9 L, Hct 31.0 L, MCV 98.1 H, MCH 31.3, MCHC 31.9 L, RDW Std Deviation 68.5 H, RDW Coeff of Dano 19.8 H, Plt Count 255, MPV 12.3 H, Neut % (Auto) Not Reportable, Absolute Neuts (auto) 20.5 H, Absolute Lymphs (auto) 0.55 L, Neutrophils % (Manual) 70, Band Neutrophils % 5, Lymphocytes % (Manual) 2 L, Monocytes % (Manual) 19 H, Myelocytes % 3 H, Promyelocytes % 1 H, Diff Path Review May foll, Platelet Estimate ADEQUATE, RBC Morphology NORM C+C, Polychromasia 1+ 02/22/21 03:25: Sodium 136, Potassium 4.2, Chloride 97 L, Carbon Dioxide 28.0, Anion Gap 11, BUN 24 H, Creatinine 3.32 H, Estim Creat Clear Calc 19.54, Est GFR (MDRD) Af Amer 23 L, Est GFR (MDRD) Non-Af 19 L, BUN/Creatinine Ratio 7.2 L, Glucose 225 H, Calcium 7.7 L, Total Bilirubin 0.80, AST 10 L, ALT 12 L, Alkaline Phosphatase 139 H, Troponin I High Sens 40.2, Total Protein 5.2 L, Albumin 1.6 L , Globulin 3.6, Albumin/Globulin Ratio 0.4 L 02/22/21 03:25: Phosphorus 2.5, Magnesium 1.7 02/22/21 04:40: Urine Color Yellow, Urine Clarity Cloudy, Urine pH 5.0, Ur Specific [place] 1.020, Urine Protein 30 H, Urine Glucose (UA) Normal, Urine Ketones 5 H, Urine Occult Blood 25 H, Urine Nitrite Negative, Urine Bilirubin 3 H, Urine Urobilinogen 1 H, Ur Leukocyte Esterase 500 H, Urine RBC 0-5 SEEN, Urine WBC >100 SEEN, Ur Squamous Epith Cells 0 SEEN, Amorphous Sediment 1+, Urine Bacteria 4+, Urine Mucus 0 SEEN 02/22/21 05:00: Lactic Acid 3.7 H* 02/22/21 09:04: POC Glucose 222 H 02/22/21 09:58: Lactic Acid 2.0 Radiology Impression Chest X-Ray 02/22/21 03:13 IMPRESSION: Minimal left lung base atelectasis. No focal consolidative lung changes. Electronically Signed: David Rosa MD at 4:14 EDT Tel , Service support ,
[2021-02-22 12:05] LABS: Bedside Glucose 158 mg/dL (70-110)
--- NOTE | 2021-02-22 12:30 | CASEMGMT ---
MAGGIE ESTES assessment: Face to Face with patient for initial transition planning/care coordination assessment. MAGGIE ESTES introduced self and role at [facility], pt voices understanding and consents to assessment. Pt is sitting up in bed in no distress. Pt is A/Ox4 and answers all questions appropriately. Care providers, pharmacy, and demographics verified. Presentation: Pt c/o weakness-hx pancreatic/liver cancer-still getting chemo-also on dialysis MWF Admitting dx: Severe sepsis, UTI PCP: Robina Specialists: Linda, onc; Wan, cardio; Carol Ann, uro Preferred Pharmacy: [facility] Insurance: MCR A/B, AARP Prescription Benefit: Yes Living Will/HPOA: Pt has LW/HPOA and is aware that they are on file at [facility]. Pt's , Lucy Gamboa, is HPOA. LNOK: Lucy Arredondo, ; Miguel Gamboa, son Living Arrangements: Pt states lives with in 1 story home and states has had difficulty caring for self in last several days. Pt states is normally independent with ADL's. Transportation: Pt states self//son drive and states no transportation concerns. DME/HHC: Pt states has the following DME: cane, walker, grab bars, and shower chair. Pt states no need for any further DME. Pt states no hx of HHC but has been to [facility] in the past. Pt is unsure of plan for discharge. Pt states if he feels the way he did prior to coming in then he is agreeable to SNF. Pt is retired. Pt states does not smoke cigarettes or drink ETOH. Pt voices no further concerns/needs. CM to follow PT/OT evals and any further discharge planning/needs. Advised pt to ask for CM if any further questions/concerns/needs arise, voices understanding. Pt Goal: Home Plan: [place] MAGGIE ESTES
[2021-02-22] MEDS: Amiodarone 360 MG in Dextrose 5% Viaflo Bag 192.8 ML 16.7 MG CONT INF (15:52)
[2021-02-22 17:00] LABS: Bedside Glucose 166 mg/dL (70-110)
[2021-02-22] MEDS: Tamsulosin HCl 0.4 MG Capsule PO (17:03)
[2021-02-22] MEDS: Sucralfate 1 GM Tablet PO (17:04)
[2021-02-22] MEDS: Pravastatin 20 MG Tablet PO (21:31)
[2021-02-22 22:20] LABS: Bedside Glucose 154 mg/dL (70-110)
[2021-02-23] VITALS (20 sets, daily range): BP systolic 84–129; BP diastolic 46–80; PULSE 94–135; RESP 16–21; TEMP 36.1–36.8; O2SAT 90–100
[2021-02-23] MEDS: Morphine 2 MG/ML Syringe IV ×2 (03:00→07:17)
[2021-02-23] MEDS: 0.9% Normal Saline 1,000 ML 100 ML IV ×2 (03:02→13:07)
[2021-02-23] MEDS: Amiodarone 360 MG in Dextrose 5% Viaflo Bag 192.8 ML 16.7 MG CONT INF (03:36)
--- NOTE | 2021-02-23 06:23 | PN.CC_ITS ---
Assessment & Plan Assessment/Plan (1) Severe sepsis: PLAN: RECOMMENDATIONS: 1. Continue empiric antimicrobials. 2. Continue amiodarone. 3. Nephrology following to assist with hemodialysis needs. 4. Continue midodrine per home regimen. 5. Pain control regimen per hospitalist. IMPRESSIONS: 1. Severe sepsis with concern for potential urinary tract source of infection The patient presented to the hospital with generalized weakness and debility. He subsequently met criteria for severe sepsis with concern for potential urinary tract source of infection. Therefore, antimicrobials will be continued, pending finalized infectious work-up. The patient did receive supplemental IV fluids, but has remained hemodynamically stable. Plan to continue baseline midodrine per home regimen. 2. Paroxysmal atrial fibrillation with RVR/history of coronary artery disease Continue amiodarone infusion as ordered. The remainder of his outpatient cardiac regimen will be continued. 3. History of end-stage renal disease on hemodialysis Nephrology following to assist with ongoing hemodialysis needs. 4. Metastatic pancreatic cancer The patient has a history of metastatic pancreatic cancer is currently undergoing chemotherapy under the discretion of Dr. Mckeon of oncology. There are tentative plans for oncology to evaluate the patient today to assist with l rebecca-term goals of care planning. 5. Generalized weakness and debility Complicates care, management, recovery and prognosis. PT/OT to work with the patient. This note was generated with [employer] dictation software. It may contain incorrect words, spelling, and punctuation that were not noted in checking the note before signing. Subjective Subjective The patient was seen and examined at the bedside this morning. Events from the last 24 hours have been reviewed. The patient is currently afebrile, hemodynamically stable and maintaining appropriate oxygen saturations on room air. The patient is currently documented to be overall net +3.5 L for the hospital admission. The patient remains in atrial fibrillation on an amiodarone infusion. Objective Data Objective Data The patient's most recent lab work, culture data and imaging studies have all been personally reviewed. Surface echocardiogram revealed normal LV size with an ejection fraction of 55%. Blood and urine cultures are pending. Vital Signs: Vital Signs Temp Pulse Resp BP Pulse Ox 98.2 F 106 H 16 108/74 100 02/23/21 02:00 02/23/21 04:00 02/23/21 04:00 02/23/21 04:00 02/23/21 04:00 Oxygen Delivery Method Room Air Weight: 83.8 kg Body Mass Index (BMI) 26.2 Intake & Output: Intake and Output for Last 24 Hours 02/21/21 02/22/21 02/23/21 23:59 23:59 23:59 Intake Total 2340.30 / 2460.30 1275.32 / 1275.32 Output Total 0 / 125 125 / 125 Balance 2340.30 / 2335.30 1150.32 / 1150.32 Medical Nutrition Assessment Dietitian: Nutrition Therapy Diagnosis Start: 02/22/21 09:35 Freq: Status: Active Protocol: Document 02/22/21 09:51 SLA (Rec: 02/22/21 09:51 SLA [id number]) Nutrition Malnutrition Evidence of Malnutrition Exists No Intake Problem Inadequate Oral Intake Etiology related to chemo/dialysis treatments Signs/Symptoms as evidenced by 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 Lab / Micro Data Attestation: I reviewed the patient's lab results. Result Diagrams: 02/22/21 03:25 02/22/21 03:25 Labs: Laboratory Results - last 24 hr 02/22/21 03:25: Phosphorus 2.5, Magnesium 1.7 02/22/21 09:04: POC Glucose 222 H 02/22/21 09:58: Lactic Acid 2.0 02/22/21 11:56: POC Glucose 158 H 02/22/21 16:55: POC Glucose 166 H 02/22/21 21:55: POC Glucose 154 H Radiography Diagnostic Testing: Radiology Impression Echocardiogram 02/22/21 08:35 Interpretation Summary The study was technically difficult. Based upon the 2D echocardiographic images obtained there appears to be grossly normal left ventricular size, wall motion, and systolic function. The estimated ejection fraction is 55 %. The left atrium is mildly enlarged. Trivial mitral valve insufficiency. Mild tricuspid valve insufficiency. Right ventricular systolic pressure estimated to be 22 mmHg. Unable to assess diastolic dysfunction. Ordering Physician: Harvinder Camairllo Performed By: Alexx Dey RCS Physical Exam Const alert, oriented x3 and no apparent distress General Appearance: cooperative HEENT normocephalic, head/scalp atraumatic and moist oral mucous membranes Eyes PERRL, EOMs intact bilaterally and conjunctivae normal Neck supple General: trachea midline Resp normal respiratory effort and no use of accessory muscles Auscultation: Negative for rales, rhonchi or wheezes Cardio S1 normal heart sound and S2 normal heart sound Rate: tachycardic Rhythm: abnormal rhythm GI normal to inspection, nondistended, normoactive bowel sounds Extremity General Extremity: edema bilateral lower extremity Skin no rashes or lesions noted Neuro no focal motor deficits Psych cooperative and affect normal Charges/Coding Visit Charges Inpatient E&M: 19934 Subs Hosp L2
[2021-02-23 08:00] LABS: ALB/GLOB Ratio 0.3 RATIO (0.9-2.4); AST(SGOT) 17 U/L (15-37); Alanine Aminotransfer ALT/SGPT 12 U/L (16-61); Alkaline Phosphatase 143 U/L (45-117); Anion Gap 6 (5-15); BUN 30 mg/dL (7-18); Calcium,Total 7.5 mg/dL (8.5-10.1); Chloride 102 mmol/L (98-107); Creatinine, Serum 3.35 mg/dL (0.70-1.30); EST Glomerular Filtration Rate 19 mL/min (>60); Est Glom Filt Rate - Afr Amer 23 mL/min (>60); Estimated Creatinine Clearance 19.37 ml/min; Globulin 3.9 g/dL (2.2-4.2); Glucose 163 mg/dL (74-106); Magnesium 1.7 mg/dL (1.6-2.6); Phosphorus 3.1 mg/dL (2.5-4.9); Potassium 4.1 mmol/L (3.5-5.1); Protein, Total 4.9 g/dL (6.4-8.2); Sodium Level 131 mmol/L (136-145); Thyroid Stim Hormone (TSH) 1.13 uIU/mL (0.358-3.74)
[2021-02-23 08:01] LABS: Hematocrit 32.3 % (40-54); Hemoglobin 10.5 g/dL (13.0-16.5); Mean Corp Hgb Conc 32.5 g/dL (32-36); Mean Corpuscular Hgb 31.4 pg (27.0-32.0); Mean Corpuscular Volume 96.7 fL (80-94); Mean Platelet Vol. 11.7 fl (6.2-12.0); POSITIVE COUNT YES; POSITIVE DIFFERENTIAL YES; POSITIVE MORPHOLOGY YES; Platelet Count 216 K/mm3 (150-450); RBC Distribution Width SD 67.7 fl (35.1-43.9); Red Blood Count 3.34 M/mm3 (4.6-6.2)
[2021-02-23 08:22] LABS: Differential Indicated MANUAL DIFF
[2021-02-23 08:40] LABS: Bedside Glucose 138 mg/dL (70-110)
[2021-02-23] MEDS: guaiFENesin 10 ML UDC (200MG/10ML) PO (08:51)
[2021-02-23] MEDS: Sucralfate 1 GM Tablet PO (08:51)
[2021-02-23] MEDS: Docusate Sodium 100 MG Capsule PO (09:00)
[2021-02-23] MEDS: Metoprolol Tartrate 25 MG Tablet PO (09:01)
[2021-02-23] MEDS: Heparin Injection (Vial) 5,000 UNIT/ML VIAL 5000 UNIT SC (09:01)
[2021-02-23] MEDS: Pantoprazole Sodium 40 MG Tablet PO (09:01)
[2021-02-23 09:40] LABS: Lymphocyte 2 % (19-41); Metamyelocyte 3 % (0-1); Monocyte 10 % (0-10); Myelocyte 4 % (0-0); Neutrophil-Band 4 % (0-5); Neutrophil-Segmented 77 % (47-70); Total Cells Counted 100 (MANUAL DIFF)
[2021-02-23 09:41] LABS: Anisocytosis 2+; Macrocytosis 1+; Microcytosis 1+; Platelet Estimate ADEQUATE (ADEQ)
[2021-02-23 09:42] LABS: Absolute Lymphocyte Count 0.58 X10^3/uL (0.83-4.51); Absolute Neutrophil Count 23.5 X10^3/uL (2.0-7.7)
--- NOTE | 2021-02-23 10:42 | PN.HOSP_ITS ---
Subjective Subjective Seen and examined. Patient is weak, mild short of breath. Heart rate and blood pressure are not yet controlled. Heart rate average about 120s A. fib. Blood pressure on the lower side. Patient feels depressed and wants more comfortable/palliative care. Discussed with Dr. Mckeon yesterday and will be coming to see to discuss prognosis and hospice care. Mild cough and unable to expectorate out. Objective Data Objective Data Vital Signs: Vital Signs Temp Pulse Resp BP Pulse Ox 97.4 F L 106 H 20 H 84/57 L 99 02/23/21 08:00 02/23/21 10:00 02/23/21 10:00 02/23/21 10:00 02/23/21 10:00 Oxygen Delivery Method Room Air Weight: 184 lb 11.958 oz Body Mass Index (BMI) 26.2 Intake & Output: Intake and Output for Last 24 Hours 02/21/21 02/22/21 02/23/21 23:59 23:59 23:59 Intake Total 2340.30 / 2460.30 1465.50 / 1465.50 Output Total 0 / 125 250 / 250 Balance 2340.30 / 2335.30 1215.50 / 1215.50 Medical Nutrition Assessment Dietitian: Nutrition Therapy Diagnosis Start: 02/22/21 09:35 Freq: Status: Active Protocol: Document 02/22/21 09:51 MICHAEL (Rec: 02/22/21 09:51 MICHAEL [id number]) Nutrition Malnutrition Evidence of Malnutrition Exists No Intake Problem Inadequate Oral Intake Etiology related to chemo/dialysis treatments Signs/Symptoms as evidenced by 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 Lab / Micro Data Result Diagrams: 02/23/21 07:45 02/23/21 07:11 Labs: Laboratory Results - last 24 hr 02/22/21 11:56: POC Glucose 158 H 02/22/21 16:55: POC Glucose 166 H 02/22/21 21:55: POC Glucose 154 H 02/23/21 07:11: Sodium 131 L, Potassium 4.1, Chloride 102, Carbon Dioxide 23.0, Anion Gap 6, BUN 30 H, Creatinine 3.35 H, Estim Creat Clear Calc 19.37, Est GFR (MDRD) Af Amer 23 L, Est GFR (MDRD) Non-Af 19 L, BUN/Creatinine Ratio 9.0 L, Glucose 163 H, Calcium 7.5 L, Magnesium 1.7, Total Bilirubin 0.60, AST 17, ALT 12 L, Alkaline Phosphatase 143 H, Total Protein 4.9 L, Albumin 1.0 L, Globulin 3.9, Albumin/Globulin Ratio 0.3 L, TSH 1.13 02/23/21 07:11: Phosphorus 3.1 02/23/21 07:45: WBC 29.0 H, RBC 3.34 L, Hgb 10.5 L, Hct 32.3 L, MCV 96.7 H, MCH 31.4, MCHC 32.5, RDW Std Deviation 67.7 H, RDW Coeff of Dano 20.0 H, Plt Count 216, MPV 11.7, Neut % (Auto) Not Reportable, Absolute Neuts (auto) 23.5 H, Absolute Lymphs (auto) 0.58 L, Total Counted 100, Neutrophils % (Manual) 77 H, Band Neutrophils % 4, Lymphocytes % (Manual) 2 L, Monocytes % (Manual) 10, Metamyelocytes % 3 H, Myelocytes % 4 H, Diff Path Review May foll, Platelet E stimate ADEQUATE, Anisocytosis 2+, Microcytosis 1+, Macrocytosis 1+ 02/23/21 08:34: POC Glucose 138 H Radiography Diagnostic Testing: Radiology Impression Echocardiogram 02/22/21 08:35 Interpretation Summary The study was technically difficult. Based upon the 2D echocardiographic images obtained there appears to be grossly normal left ventricular size, wall motion, and systolic function. The estimated ejection fraction is 55 %. The left atrium is mildly enlarged. Trivial mitral valve insufficiency. Mild tricuspid valve insufficiency. Right ventricular systolic pressure estimated to be 22 mmHg. Unable to assess diastolic dysfunction. Ordering Physician: Harvinder Camarillo Performed By: Alexx Dey, MEDHAT Physical Exam Narrative Physical exam General: Alert, Oriented x3, Cooperative, fatigue HEENT: Atraumatic, PERRLA, EOMI, Normocephalic Oral: Oral mucosa mucosa No Gingival or Mucosal Lesions/ Ulcerations Neck: Supple, No JVD, Negative Carotid Bruits Lungs: Air entry diminished in bilateral lung bases. No crepitation/rhonchi/wheezing Cardiovascular: Irregular rate and rhythm, A. fib with RVR, normal S1, Normal S2, LLSB holosystolic murmurs Abdomen: Bowel Sounds Present, Soft, Non Tender, Non-Distended : No renal angle tenderness. No suprapubic tenderness. Extremities: No edema, Capillary Refill Less than 3 Seconds Skin: No rashes, No breakdown Musculoskeletal: Moderate atrophy of muscles of extremities. No Tenderness to Palpation of Joints or Extremities Neurological: Cranial nerves II-XII grossly intact, Deep Tendon Reflexes 2+/4 and Symmetrical, Neuro grossly intact Psych/Mental Status: Flat affect. Sad and depressed. Assessment & Plan Assessment/Plan (1) Severe sepsis: (2) Urinary tract infection: QUALIFIERS: Urinary tract infection type: acute cystitis Hematuria presence: without hematuria Qualified Code(s): N30.00 - Acute cystitis without hematuria PLAN: This 75-year-old with multiple comorbidities was admitted with generalized weakness, lactic acidosis with clinical and lab features suggestive of severe sepsis due to UTI A. fib with RVR 1. Severe sepsis (SIRS with lactic acidosis) probably due to acute UTI: Patient is being admitted in ICU. On IV Rocephin. Follow cultures 02/23: Increasing leukocytosis with left shift, neutrophils, lymphopenia, metamyelocytes. No fever. IV ceftriaxone. He is also stressed out and frustrated with lab work and multiple phlebotomies. 2. A. fib with RVR: Patient blood pressure is on lower side, systolic 102 mmHg. Start amiodarone bolus and then continuous IV drip. Cardizem drip was ordered but never started due to low blood pressure. 02/23: Heart rate still elevated. Continue amiodarone drip. Discussed with the manager resort Dr. Blas. Patient is leaning towards hospice care, will change to a bit from 200 mg 3 times daily for 1 week then 200 mg twice daily for 2 weeks then 200 mg daily to continue. 3. ESRD on hemodialysis: Dr. Crump is being consulted. 02/23: Patient is treated he does not want dialysis anymore. 4. Pancreatic cancer with metastasis to liver: Patient follows Dr. Mckeon. Initially diagnosed September 2020. On chemotherapy regimen, few sessions were skipped because of low blood count. Diabetes mellitus type 2: Accu-Chek insulin coverage with sliding scale 5. Anemia of chronic disease/neoplastic disease: Hemoglobin low 9.9. 6. Coronary artery disease status post PCI: Patient not on antiplatelet or antithrombotic agent due to history of GI bleed, anemia and thrombocytopenia: Patient platelet count in September 2080 was in 30s to 40s thousand. 7. Other comorbidities include hypertension, dyslipidemia, BPH: Multiple com orbidities complicates the present care and expect difficult and delay recovery Families are coming today. Needs overall prognostication and decision making for hospice care. Total time of the visit including total time spent in counseling or coordination of care, (more than 50% of the total time, spent in obtaining medical information from nurses and other ancillary care providers,explaining to the patient about labs, imaging, diagnosis and management), discussion with consultants and patient himself regarding palliative/hospice care, review of labs and imaging is 30 minutes. Charges/Coding Visit Charges Inpatient E&M: 05034 Subs Hosp L3
--- NOTE | 2021-02-23 12:59 | CON.PCM.ON_ITS ---
Assessment & Plan Assessment/Plan (1) Severe sepsis: Status: Acute Code(s): A41.9 - Sepsis, unspecified organism; R65.20 - Severe sepsis without septic shock (2) Urinary tract infection: Status: Acute Code(s): N39.0 - Urinary tract infection, site not specified Qualifiers: Hematuria presence: without hematuria Urinary tract infection type: acute cystitis Qualified Code(s): N30.00 - Acute cystitis without hematuria (3) Pancreatic carcinoma metastatic to liver: Status: Acute Code(s): C25.9 - Malignant neoplasm of pancreas, unspecified; C78.7 - Secondary malignant neoplasm of liver and intrahepatic bile duct Plan: His KPS has been declining and he is tolerating therapy poorly. Recent CT A/P from 02/14 suggested PD. He desires hospice. I agree--he is not a candidate for more aggressive therapy duet to comorbid conditions. Discussed plan to consult hospice for inpatient hospice care for pain control. HPI Consult Data Date of Service:: 02/23/21 PCP / Referring Provider: Dr. Guanakito Quarles MD Attending: Dr. Harvinder Camarillo MD Chief Complaint Chief Complaint: Metastatic pancreas cancer History of Present Illness History of Present Illness: The patient is a 75 yo male with PMH significant for DM2 who was diagnosed wiht metastatic pancreas cancer after admission earlier this year for ESRD. Was started on dialysis. Has been receiving single agent gemcitabine. Admitted with increasing lethargy and weakness. Worsening abdominal pain. Was in RVR atrial fibrillation. Difficulty with dialysis this am due to low BP. 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 Blake Mckeon DO) Anxiety Atherosclerotic heart disease of [place] coronary artery without angina pectoris Body mass index (bmi) 29.0-29.9, adult CAD (coronary artery disease) Cancer Chest pain Depression Diabetes mellitus, type II Dialysis patient Essential hypertension Hearing loss, left Hearing loss, right History of left heart catheterization (LHC) (~05/16/19) Kidney disease Non-smoker Paroxysmal atrial fibrillation Pure hypercholesterolemia Vision loss of left eye Vision loss of right eye Wears hearing aid in both ears Wide-complex tachycardia Home Medications tamsulosin 0.4 mg PO DAILY 01/21/16 [History Last Taken 09/22/20] amiodarone 200 mg PO DAILY 08/05/20 [History Last Taken 09/23/20] pantoprazole 40 mg tablet,delayed release 40 mg PO DAILY tablet 09/04/20 [History Last Taken 09/23/20] pravastatin 20 mg PO QHS 09/23/20 [History Last Taken 09/22/20] metoprolol tartrate 50 mg tablet 25 mg PO .COMPLEX #0 10/23/20 [Rx Last Taken Unknown] docusate sodium [Colace] 100 mg PO DAILY #30 cap 01/04/21 [Rx Last Taken Unknown] hydrocodone-acetaminophen 1 tab PO Q4H PRN PRN 3 Days #15 tablet 02/17/21 [Rx Last Taken Unknown] insulin glargine [Lantus Solostar U-100 Insulin] 8 unit SUBCUT QPM 02/17/21 [History Last Taken Unknown] insulin lispro [Humalog KwikPen Insulin] unit SUBCUT TID 02/17/21 [History Last Taken Unknown] flcofb-ycmllsvx-lfcaqsp [Creon] 2 cap PO TID 02/17/21 [History Last Taken Unknown] midodrine 10 mg PO . 02/17/21 [History Last Taken Unknown] sitagliptin [Januvia] 25 mg PO DAILY 02/17/21 [History Last Taken Unknown] sucralfate [Carafate] 1 g PO BID #60 tab 02/17/21 [Rx Last Taken Unknown] oxycodone 10 mg PO Q6H PRN 02/22/21 [History Last Taken Unknown] Allergy/AdvReac Type Severity Reaction Status Date / Time scopolamine AdvReac HALLUCINATI Verified 02/22/21 02:37 ONS SOME TYPE OF IV DYE FOR AdvReac backache Uncoded 02/17/21 05:38 ULTRA BRYCE Family History Father CAD (coronary artery disease) Mother Alzheimers disease Sister Breast cancer Surgical History History of ERCP Hx laparoscopic cholecystectomy Social History Smoking Status: Never smoker alcohol intake: never substance use type: does not use diet: diabetic caffeine: No what type of physical activity do you participate in: none seatbelt use: always do you feel safe at home: Yes Vital Signs Temperature 97.4 F L 02/23/21 08:00 Temperature Source Temporal 02/23/21 08:00 Pulse Rate 114 H 02/23/21 11:00 Pulse Strength Normal (2+) 02/23/21 10:00 Respiratory Rate 21 H 02/23/21 11:00 Respiratory Effort Non-Labored 02/23/21 08:30 Respiratory Depth Normal 02/23/21 08:30 Respiratory Pattern Normal 02/23/21 08:30 Blood Pressure 89/64 L 02/23/21 11:00 Blood Pressure Mean 72 02/23/21 11:00 Blood Pressure Source Monitor 02/23/21 11:00 Blood Pressure Position Semi-Fowlers 02/23/21 11:00 Blood Pressure Location Left Arm 02/23/21 11:00 Pulse Ox 96 02/23/21 11:00 Oxygen Delivery Method Room Air 02/23/21 11:00 Laboratory Results - last 24 hr 02/22/21 16:55: POC Glucose 166 H 02/22/21 21:55: POC Glucose 154 H 02/23/21 07:11: Sodium 131 L, Potassium 4.1, Chloride 102, Carbon Dioxide 23.0, Anion Gap 6, BUN 30 H, Creatinine 3.35 H, Estim Creat Clear Calc 19.37, Est GFR (MDRD) Af Amer 23 L, Est GFR (MDRD) Non-Af 19 L, BUN/Creatinine Ratio 9.0 L, Glucose 163 H, Calcium 7.5 L, Magnesium 1.7, Total Bilirubin 0.60, AST 17, ALT 12 L, Alkaline Phosphatase 143 H, Total Protein 4.9 L, Albumin 1.0 L, Globulin 3.9, Albumin/Globulin Ratio 0.3 L, TSH 1.13 02/23/21 07:11: Phosphorus 3.1 02/23/21 07:45: WBC 29.0 H, RBC 3.34 L, Hgb 10.5 L, Hct 32.3 L, MCV 96.7 H, MCH 31.4, MCHC 32.5, RDW Std Deviation 67.7 H, RDW Coeff of Dano 20.0 H, Plt Count 216, MPV 11.7, Neut % (Auto) Not Reportable, Absolute Neuts (auto) 23.5 H, Absolute Lymphs (auto) 0.58 L, Total Counted 100, Neutrophils % (Manual) 77 H, Band Neutrophils % 4, Lymphocytes % (Manual) 2 L, Monocytes % (Manual) 10, Metamyelocytes % 3 H, Myelocytes % 4 H, Diff Path Review May foll, Platelet Estimate ADEQUATE, Anisocytosis 2+, Microcytosis 1+, Macrocytosis 1+ 02/23/21 08:34: POC Glucose 138 H Diagnostic Data Chest X-Ray 02/22/21 03:13 IMPRESSION: Minimal left lung base atelectasis. No focal consolidative lung changes. Electronically Signed: David Rosa MD at 4:14 EDT Tel , Service support , Echocardiogram 02/22/21 08:35 Interpretation Summary The study was technically difficult. Based upon the 2D echocardiographic images obtained there appears to be grossly normal left ventricular size, wall motion, and systolic function. The estimated ejection fraction is 55 %. The left atrium is mildly enlarged. Trivial mitral valve insufficiency. Mild tricuspid valve insufficiency. Right ventricular systolic pressure estimated to be 22 mmHg. Unable to assess diastolic dysfunction. Ordering Physician: Harvinder Camarillo Performed By: Alexx Dey RCS
[2021-02-23] MEDS: guaiFENesin 1,200 MG Tablet 1200 MG PO (13:06)
--- NOTE | 2021-02-23 15:20 | DS.PCM_ITS ---
Providers Date of Admission: 02/22/21 Date of Discharge: 02/23/21 Primary Care Physician: Dr. Guanakito Quarles MD Consultations 02/22/21 07:48 Consult: Labor Contractor / Pulmonary Medicine Routine Consulting Provider: Alec Salcedo Reason for Consult: Severe sepsis, UTI, PAF w/ RVR EMERGENT Consult: No Notified: Yes Date Notified: 02/22/21 Time Notified: 06:19 Method of Notification: cortext Consult: Nephrology Routine Consulting Provider: Jonathan Crump Reason for Consult: ESRD on HD EMERGENT Consult: No Notified: Yes Date Notified: 02/22/21 Time Notified: 09:48 Method of Notification: Answering Service 02/22/21 17:13 Consult: Oncology/Hematology Routine Consulting Provider: [facility] Hem/Onc Hayley Reason for Consult: Stage IV Pancratic cancer. DR Mckeon EMERGENT Consult: No Notified: Yes Date Notified: 02/22/21 Time Notified: 17:13 Method of Notification: Verbal Reason For Visit: SEVERE SEPSIS, UTI Diagnosis Discharge Diagnosis (1) Severe sepsis: Status: Acute Code(s): A41.9 - Sepsis, unspecified organism; R65.20 - Severe sepsis without septic shock (2) Urinary tract infection: Status: Acute Code(s): N39.0 - Urinary tract infection, site not specified Qualifiers: Hematuria presence: without hematuria Urinary tract infection type: acute cystitis Qualified Code(s): N30.00 - Acute cystitis without hematuria (3) Pancreatic carcinoma metastatic to liver: Status: Acute Code(s): C25.9 - Malignant neoplasm of pancreas, unspecified; C78.7 - Secondary malignant neoplasm of liver and intrahepatic bile duct Medications at Discharge Home Medications tamsulosin 0.4 mg PO DAILY 01/21/16 amiodarone 200 mg PO DAILY 08/05/20 pantoprazole 40 mg tablet,delayed release 40 mg PO DAILY tablet 09/04/20 pravastatin 20 mg PO QHS 09/23/20 metoprolol tartrate 50 mg tablet 25 mg PO .COMPLEX #0 10/23/20 docusate sodium [Colace] 100 mg PO DAILY #30 cap 01/04/21 hydrocodone-acetaminophen 1 tab PO Q4H PRN PRN 3 Days #15 tablet 02/17/21 insulin glargine [Lantus Solostar U-100 Insulin] 8 unit SUBCUT QPM 02/17/21 insulin lispro [Humalog KwikPen Insulin] unit SUBCUT TID 02/17/21 ajfjre-sxebsius-nsgbmuz [Creon] 2 cap PO TID 02/17/21 midodrine 10 mg PO . 02/17/21 sitagliptin [Januvia] 25 mg PO DAILY 02/17/21 sucralfate [Carafate] 1 g PO BID #60 tab 02/17/21 oxycodone 10 mg PO Q6H PRN 02/22/21 Hospital Course Summary of Care Provided Hospital Course: This 75-year-old with multiple comorbidities was admitted with generalized weakness, lactic acidosis with clinical and lab features suggestive of severe sepsis due to UTI A. fib with RVR 1. Severe sepsis (SIRS with lactic acidosis) probably due to acute UTI: Patient is being admitted in ICU. On IV Rocephin. Blood cultures x2 were negative for 48 hours. Rapid COVID-19 antigen negative. The patient had increasing leukocytosis with left shift, neutrophils, lymphopenia, metamyelocytes. No fever. IV ceftriaxone. The patient was stressed out and frustrated with lab work and multiple phlebotomies and therefore further lab work was discontinued. Patient preferred palliative/hospice care. 2. A. fib with RVR: Patient blood pressure is on lower side, systolic 102 mmHg. Start amiodarone bolus and then continuous IV drip. Cardizem drip was ordered but never started due to low blood pressure. Heart rate was elevated but better than admission. Amiodarone drip was continued Discussed with the dye range operator cloth Dr. Blas. He advised overall transition will be amiodarone 200 mg 3 times daily for 1 week then 200 mg twice daily for 2 weeks then 200 mg daily to continue. Repeat limited echo shows EF 55% with mildly enlarged LA suggestive of chronic heart failure with preserved EF. But the patient opted for hospice care therefore finally was discontinued 3. ESRD on hemodialysis: Dr. Crump is being consulted. As patient opted for hemodialysis sinew he will not be dialyzed any further. 4. Pancreatic cancer with metastasis to liver: Patient follows Dr. Mckeon. Initially diagnosed September 2020. On chemotherapy regimen, few sessions were skipped because of low blood count. 02/23: Patient's performance status has been declining over the period but got worse as per Dr. Mckeon. As per oncologist is not a candidate for any further chemotherapy or more aggressive therapy due to comorbid illness and poor performance status. Family discussion was done along with Dr. Mckeon and myself. Patient's , son and daughter present in the room. We discussed about patient pancreatic cancer, intractable pain and patient suffering, low funct ional capacity and energy and patient's intolerability of further chemotherapy. Decision was made to change the CODE STATUS to DNR CC and patient agreeable for hospice care. DNRCC papers signed. As per Dr. Mckeon, patient is appropriate for inpatient hospice care. Hospice care consult was initiated. I talked to palliative/hospice care nurse, Nereyda and gave clinical update. The patient was accepted for inpatient hospice care and transferred. The family is in agreement. Diabetes mellitus type 2: Accu-Chek insulin coverage with sliding scale 5. Anemia of chronic disease/neoplastic disease: Hemoglobin low 9.9. 6. Coronary artery disease status post PCI: Patient not on antiplatelet or antithrombotic agent due to history of GI bleed, anemia and thrombocytopenia: Patient platelet count in September 2080 was in 30s to 40s thousand. 7. Other comorbidities include hypertension, dyslipidemia, BPH: Multiple comorbidities complicates the present care and expect difficult and delay recovery Discharge medication reconciliation done. Discharge follow-up instructions completed. Discharge process discussed with the patient and all questions were answered to patient's satisfaction. Total time spent, exact 35 minutes on discharge meds reconciliation, examination, coordination of care with nurses and ancillary staff, review of imaging and blood test and discussion with the patient on follow-up instructions Physical Exam Narrative Please see progress note on the same date. Patient has severe abdominal pain mainly abdominal pain, fatigue due to pancreatic cancer, stage IV. 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 Status Active Problem Clinical Problem Altered Nutrient-Related Laboratory Values Etiology related to endocrine/renal dysfunction Signs/Symptoms as evidenced by Gluc 225, BUN 24, Cr 3.32 Status Active Problem Recommendation Dietitian Recommendations/Changes Will liberalize diet to regular d/t poor po intake mud analysis well logging captain - once improved can consider return to therapeutic diet Will order chocolate glucerna shake w/ medpass for increased nutrition if consumed. Weight / BMI Weight Weight: 184 lb 11.958 oz Body Mass Index (BMI) 26.2 ABG / Lab / Microbiology Data Result Diagrams: 02/23/21 07:45 02/23/21 07:11 Laboratory: Laboratory Results - last 24 hr 02/22/21 16:55: POC Glucose 166 H 02/22/21 21:55: POC Glucose 154 H 02/23/21 07:11: Sodium 131 L, Potassium 4.1, Chloride 102, Carbon Dioxide 23.0, Anion Gap 6, BUN 30 H, Creatinine 3.35 H, Estim Creat Clear Calc 19.37, Est GFR (MDRD) Af Amer 23 L, Est GFR (MDRD) Non-Af 19 L, BUN/Creatinine Ratio 9.0 L, Glucose 163 H, Calcium 7.5 L, Magnesium 1.7, Total Bilirubin 0.60, AST 17, ALT 12 L, Alkaline Phosphatase 143 H, Total Protein 4.9 L, Albumin 1.0 L, Globulin 3.9, Albumin/Globulin Ratio 0.3 L, TSH 1.13 02/23/21 07:11: Phosphorus 3.1 02/23/21 07:45: WBC 29.0 H, RBC 3.34 L, Hgb 10.5 L, Hct 32.3 L, MCV 96.7 H, MCH 31.4, MCHC 32.5, RDW Std Deviation 67.7 H, RDW Coeff of Dano 20.0 H, Plt Count 216, MPV 11.7, Neut % (Auto) Not Reportable, Absolute Neuts (auto) 23.5 H, Absolute Lymphs (auto) 0.58 L, Total Counted 100, Neutrophils % (Manual) 77 H, Band Neutrophils % 4, Lymphocytes % (Manual) 2 L, Monocytes % (Manual) 10, Metamyelocytes % 3 H, Myelocytes % 4 H, Diff Path Review May foll, Platelet Estimate ADEQUATE, Anisocytosis 2+, Microcytosis 1+, Macrocytosis 1+ 02/23/21 08:34: POC Glucose 138 H Meaningful Use Info Meaningful Use Diagnoses (Choose all that apply): None applicable Discharge Plan Admission Admit Date/Time: 02/22/21 06:19 Attending Provider: Harvinder Camarillo Primary Care Provider: Guanakito Quarles Consulting Providers: Alec Salcedo ; Jonathan Crump ; Cameron Narvaez ; Alyssa Nuñez ; Lucia Franco ; Jimy Chin ; Blake Mckeon Discharge Orders/Prescriptions Prescriptions: No Action pantoprazole 40 mg tablet,delayed release (DR/EC) 40 mg PO DAILY RF: 0 tamsulosin 0.4 MG capsule 0.4 mg PO DAILY RF: 0 amiodarone 200 MG tablet 200 mg PO DAILY RF: 0 pravastatin 20 MG tablet 20 mg PO QHS RF: 0 docusate sodium [Colace] 100 mg capsule 100 mg PO DAILY Qty: 30 RF: 0 midodrine 10 mg Tablet 10 mg PO . RF: 0 insulin lispro [Humalog KwikPen Insulin] 100 unit/mL Insulin Pen SUBCUT TID RF: 0 Januvia 25 mg Tablet 25 mg PO DAILY RF: 0 Lantus Solostar U-100 Insulin 100 unit/mL (3 mL) Insulin Pen 8 unit SUBCUT QPM RF: 0 Creon 12,000-38,000 -60,000 unit Capsule,Delayed Release(Dr/Ec) 2 cap PO TID RF: 0 sucralfate [Carafate] 1 gram tablet 1 g PO BID Qty: 60 RF: 0 hydrocodone-acetaminophen 5-325 mg tablet 1 tab PO Q4H PRN PRN (Reason: Pain) 3 Days Qty: 15 RF: 0 oxycodone 10 mg Tablet 10 mg PO Q6H PRN (Reason: Pain) RF: 0 metoprolol tartrate 50 mg tablet 25 mg PO .COMPLEX Qty: 0 RF: 0 Referrals / Follow Up: Guanakito Quarles MD [Primary Care Provider] - Disposition Discharge Orders: Discharge Patient (Routine); Ordered 02/23/21 Ordered By: Dr. Harvinder Camarillo Charges/Coding Visit Charges Inpatient E&M: 82888 Disch Hosp
[2021-02-24 13:14] LABS: Pathologist Review Reviewed
[2021-02-24 13:21] LABS: Pathologist Review Reviewed
== END 2021-02-23 16:45 | disposition home or self-care (01) | DRG 871 ==
LOC: ED 06:13 → ICU 06:34
PROVIDERS: Admitting Provider Family Medicine; Emergency Provider Emergency Medicine; PCP Family Medicine; Visit Provider Internal Medicine
DX: A41.9 Sepsis, unspecified organism (principal); N18.6 End stage renal disease; C25.9 Malignant neoplasm of pancreas, unspecified; C78.7 Secondary malignant neoplasm of liver and intrahepatic bile duct; I12.0 Hypertensive chronic kidney disease with stage 5 chronic kidney disease or end stage renal disease; N30.00 Acute cystitis without hematuria; D63.8 Anemia in other chronic diseases classified elsewhere; D63.1 Anemia in chronic kidney disease; D69.6 Thrombocytopenia, unspecified; I95.9 Hypotension, unspecified; E11.22 Type 2 diabetes mellitus with diabetic chronic kidney disease; E78.00 Pure hypercholesterolemia, unspecified; E78.5 Hyperlipidemia, unspecified; F32.9 Major depressive disorder, single episode, unspecified; F41.9 Anxiety disorder, unspecified; H91.93 Unspecified hearing loss, bilateral; I25.10 Atherosclerotic heart disease of native coronary artery without angina pectoris; I48.0 Paroxysmal atrial fibrillation; K21.9 Gastro-esophageal reflux disease without esophagitis; N40.0 Benign prostatic hyperplasia without lower urinary tract symptoms; R65.20 Severe sepsis without septic shock; H54.61 Unqualified visual loss, right eye, normal vision left eye; H54.62 Unqualified visual loss, left eye, normal vision right eye; Z66 Do not resuscitate; Z79.899 Other long term (current) drug therapy; Z98.61 Coronary angioplasty status; Z99.2 Dependence on renal dialysis; Z97.4 Presence of external hearing-aid; Z79.4 Long term (current) use of insulin; Z87.19 Personal history of other diseases of the digestive system
CPT/HCPCS: 36415; 71045; 80053; 81001; 82962; 83605; 83735; 84100; 84443; 84484; 85025; 87040; 87086; 87426; 93005; 93308; 97162; 97166; 99251; 99285; J7030; A4216; G0463